=== PATIENT | male | born 1940 | race Caucasian/White ===

== ENCOUNTER 2021-03-13 00:01 | Emergency (ER) | payer MEDICARE, MEDICAID, SELFPAY ==
--- NOTE | ~2021-03-13 | CT_ITS ---
EXAMINATION: NONCONTRAST HEAD CT NONCONTRAST CERVICAL SPINE CT INDICATION INFORMATION: Head and neck injury COMPARISON: 12/06/2019 TECHNIQUE: Separate noncontrast CT examinations of the head and cervical spine were performed. Coronal head CT images and coronal and sagittal cervical spine images were created at the technologist workstation. DLP: 1129 mGy-cm DOSE LOWERING TECHNIQUES: This CT examination was performed using dose optimization techniques as appropriate, variously including the following: - Automated exposure control - Adjustment of mA and/or kV according to patient size (this includes techniques or standardized protocols for targeted exams were dose is matched to indication/reason for exam; i.e. extremities or head) - Use of iterative reconstruction technique FINDINGS: Head: There is no evidence of acute intracranial hemorrhage or territorial infarction. No abnormal mass-effect or midline shift is seen. [place] to white matter differentiation is well preserved. No extra-axial fluid collections are identified. The ventricles are normal in size. There is moderate periventricular white matter hypoattenuation consistent with chronic small vessel ischemic disease. Moderate volume loss is noted. Age-indeterminate nasal bone fracture. There is mild frontal scalp soft tissue swelling. The mastoid air cells and visualized portions of the paranasal sinuses are well-aerated. Cervical spine: There is degenerative change at the atlantodens articulation. There is minimal anterolisthesis of C5 on C6 which is chronic/degenerative in nature. Vertebral body heights are maintained. There is disc space narrowing of the mid to lower cervical spine with associated endplate osteophytes. Extensive multilevel facet arthropathy is redemonstrated. No evidence of acute fracture. No prevertebral soft tissue swelling. Visualized portions of the lung apices are unremarkable. The thyroid gland is unremarkable. CT/CT cervical spine wo con IMPRESSION: 1. Head: No acute intracranial findings. Age-indeterminate nasal bone fracture; clinical correlation recommended. 2. Cervical spine: No acute findings identified. Multilevel degenerative changes.
[2021-03-13 00:40] VITALS: BMI 20.4
[2021-03-13 00:55] VITALS: BP 170/98; PULSE 71; RESP 16; TEMP 36.6; O2SAT 96
--- NOTE | 2021-03-13 00:58 | ED.FALL ---
HPI - Fall General Chief Complaint: Fall Stated Complaint: fall Time Seen by Provider: 03/13/21 00:42 History of Present Illness HPI Narrative: Patient is an 81-year-old male with a long history of dementia. Patient was being helped to the bathroom. A baseline has an unsteady gait. There was an attended with him. Patient fell accidentally. Was sent to the [facility] for further evaluation. Patient did not pass out. He is not on blood thinners. He cannot give detailed history secondary to forgetfulness. Related Data Allergies Allergy/AdvReac Type Severity Reaction Status Date / Time No Known Allergies Allergy Unverified 06/19/20 17:10 [No Known Allergies*] Review of Systems Review of Systems: Unable to give detailed review of system secondary to patient's dementia. [facility] Social History Social History Alcohol intake: never Patient Tobacco Use Status: Tobacco use Unknown Use of substances other than those prescribed or required for medical reasons: No Advance Directives: No Advance Directives Information Provided: No Physical Exam Vital Signs: Vital Signs: Last Vital Signs Temp 97.8 F 03/13/21 04:50 Pulse 72 03/13/21 04:50 Resp 16 03/13/21 04:50 BP 154/84 H 03/13/21 04:50 Pulse Ox 99 03/13/21 04:50 Body Mass Index 20.4 Appearance: Alert. Oriented to self only. Eyes: Pupils equal, round and reactive to light. ENT: Pharynx normal. Patient has a positive hematoma to the frontal area. Neck: Normal inspection. Neck supple. No lymph nodes noted. No crepitus, C-spine was immobilized secondary to dementia and fall. CVS: Normal heart rate and rhythm. Pulses normal. Normal S1 and S2 Respiratory: No respiratory distress. Breath sounds normal. No Wheezing. No rales Abdomen: Soft and nontender. No rigidity. No distention. good BS x4 Skin: Skin warm and dry. Normal skin color. Normal skin turgor. Extremities: No lower extremity edema. Neurovascular intact to all extremities. No Lacerations. No Rash Neuro: Oriented X 1. Contracted moving all extremities MDM - Fall MDM Narrative Medical decision making narrative: CT scan of the head and C-spine were grossly negative. Electrolytes unremarkable. Patient was a witnessed fall will discharge patient home patient's hemoglobin was normal. Attempted to contact the power of broth setter. To no avail a message was left in the answer machine. Lab Data Result diagrams: 03/13/21 04:44 03/13/21 04:44 Labs: Lab Results 03/13/21 03/13/21 Range/Units 04:44 04:44 WBC 7.9 (4.8-10.8) X10*3/uL RBC 4.90 (4.60-5.80) X10*6/uL Hgb 14.4 (14.0-18.0) g/dl Hct 44.9 (42-52) % MCV 91.6 (80-98) fL MCH 29.4 (27.0-33.0) pg MCHC 32.1 (31.0-36.0) g/dl RDW 13.9 (11.0-16.0) % Plt Count 228 (160-400) X10*3/uL MPV 9.1 L (9.4-12.4) fL Immature Gran % (Auto) 0.3 (0.0-0.4) % Neut % (Auto) 54.9 (45-73) % Lymph % (Auto) 23.4 (20-40) % [place] % (Auto) 14.7 H (2-11) % Eos % (Auto) 6.2 H (0-4) % Baso % (Auto) 0.5 (0-2) % Lymph # (Auto) 1.9 (1.2-4.9) X10*3/uL [place] # (Auto) 1.2 (0.1-1.2) X10*3/uL Eos # (Auto) 0.5 H (0.0-0.4) X10*3/uL Baso # (Auto) 0.0 (0.0-0.2) X10*3/uL Abs Immat Gran (auto) 0.02 (0.00-0.03) X10*3/uL Absolute Neuts (auto) 4.3 (2.0-8.3) X10*3/uL Absolute Nucleated RBC 0.000 (0.0-0.012) X10*3/uL Nucleated RBC % (auto) 0.0 (0.0-0.2) /100WBC Sodium 141 (135-145) mmol/L Potassium 4.6 (3.3-5.1) mmol/L Chloride 108 (96-108) mmol/L Carbon Dioxide 24 (22-29) mmol/L Anion Gap 14 (12-20) BUN 16 (9-16) mg/dL Creatinine 0.84 (0.5-1.4) mg/dL Estim Creat Clear Calc 66.2 Estimated GFR > 60 Random Glucose 93 (60-115) mg/dL Calcium 9.0 (8.4-10.2) mg/dL Discharge Plan Discharge Clinical Impression: Fall Patient Disposition: Xfer LTC Instructions: Fall Prevention for Older Adults (ED), Head Injury (ED) Referrals: Norris Muñoz DO [Primary Care Provider] - 2 days
[2021-03-13 04:49] LABS: Basophils Percent Auto 0.5 % (0-2); Eosinophils Absolute Auto 0.5 X10*3/uL (0.0-0.4); Eosinophils Percent Auto 6.2 % (0-4); Hematocrit 44.9 % (42-52); Hemoglobin 14.4 g/dl (14.0-18.0); Imm Gran Abs Auto 0.02 X10*3/uL (0.00-0.03); Imm Gran Pct Auto 0.3 % (0.0-0.4); Lymphocytes Absolute Auto 1.9 X10*3/uL (1.2-4.9); Lymphocytes Percent Auto 23.4 % (20-40); MANUAL DIFF FLAG NO; Mean Corpuscular HGB Conc 32.1 g/dl (31.0-36.0); Mean Corpuscular Hemoglobin 29.4 pg (27.0-33.0); Mean Corpuscular Volume 91.6 fL (80-98); Mean Platelet Volume 9.1 fL (9.4-12.4); Monocytes Absolute Auto 1.2 X10*3/uL (0.1-1.2); Monocytes Percent Auto 14.7 % (2-11); Neutrophils Absolute Auto 4.3 X10*3/uL (2.0-8.3); Neutrophils Percent Auto 54.9 % (45-73); Platelet Count 228 X10*3/uL (160-400); Red Cell Distribution Width 13.9 % (11.0-16.0); White Blood Count 7.9 X10*3/uL (4.8-10.8)
[2021-03-13 04:50] VITALS: BP 154/84; PULSE 72; RESP 16; TEMP 36.6; O2SAT 99
[2021-03-13 05:15] LABS: Anion Gap 14 (12-20); Blood Urea Nitrogen 16 mg/dL (9-16); Carbon Dioxide 24 mmol/L (22-29); Chloride 108 mmol/L (96-108); Creatinine Clr Calc Pharmacy 66.2; Estimated Glomerular Filt Rate > 60; Glucose Random 93 mg/dL (60-115); Potassium 4.6 mmol/L (3.3-5.1); Sodium 141 mmol/L (135-145)
== END 2021-03-13 06:35 ==
PROVIDERS: Emergency Provider Emergency Medicine Emergency Medical Services; PCP Hospitalist
DX: F03.90 Unspecified dementia, unspecified severity, without behavioral disturbance, psychotic disturbance, mood disturbance, and anxiety (principal); Z91.81 History of falling
CPT/HCPCS: 36415; 70450; 72125; 80048; 85025; 99284; 99285

== ENCOUNTER 2021-12-30 06:30 | Emergency (ER) | payer MEDICARE, MEDICAID, SELFPAY ==
--- NOTE | ~2021-12-30 | XR_ITS ---
EXAMINATION: XR CHEST CLINICAL INFORMATION: Low oxygen. Low suspicious pulmonary edema. COMPARISON: 12/06/2019 TECHNIQUE: Frontal view of the chest was obtained. FINDINGS: Lung volumes are decreased from the prior study. Mild interstitial prominence. Calcified, tortuous aorta. Possible trace right pleural effusion. No left pleural effusion. No pneumothorax. Degenerative changes of the shoulders and spine but no acute osseous abnormality. XR/XR chest 1V IMPRESSION: Low lung volumes and mild interstitial prominence. Favor bronchovascular crowding in the setting of low lung volumes rather than mild interstitial edema, bronchitis, or interstitial pneumonitis. Possible trace right pleural effusion vs. atelectasis.
--- NOTE | 2021-12-30 06:40 | ECG_ITS ---
Test Reason : A FIB Blood Pressure : / mmHG Vent. Rate : 121 BPM Atrial Rate : 000 BPM P-R Int : 000 ms QRS Dur : 086 ms QT Int : 334 ms P-R-T Axes : 000 -11 -03 degrees QTc Int : 474 ms Atrial fibrillation with rapid ventricular response Nonspecific ST abnormality Abnormal ECG When compared with ECG of 06-DEC-2019 22:10, Atrial fibrillation has replaced Sinus rhythm ST now depressed in Anterior leads Referred By: Latonya Pressley Electronically Signed By:NATI GAN
--- NOTE | 2021-12-30 06:41 | ED_ITS ---
HPI - General Adult General Chief complaint: Altered Mental Status Stated complaint: LETHARGIC Time Seen by Provider: 12/30/21 06:31 Source: EMS Mode of arrival: EMS Limitations: altered mental status History of Present Illness HPI narrative: [facility]. According to the staff, patient was found unresponsive this morning. When EMS arrived to the facility, patient was already awake, at baseline, which is nonverbal, opens his eyes, cannot follow commands. According to the staff, patient is more lethargic than usual, at baseline patient is very combative, but today he is not fighting anyone. Patient unable to provide any history. Related Data Allergies Allergy/AdvReac Type Severity Reaction Status Date / Time No Known Allergies Allergy Unverified 06/19/20 17:10 [No Known Allergies*] Review of Systems Review of Systems: Yes Unobtainable due to mental condition [facility] Past Medical History Medical History (Updated 12/30/21 @ 11:12 by Latonya Pressley MD) COPD (chronic obstructive pulmonary disease) Dementia Malignant neoplasm of prostate Prostate cancer Schizophrenia Social History Social History Alcohol intake: never Patient Tobacco Use Status: Tobacco use Unknown Advance Directives: Yes Advance Directives Information Provided: No Advance Directives on File: No Physical Exam ED Vital Signs: Vital Signs - 24 hr 12/30/21 06:42 12/30/21 07:08 12/30/21 09:37 Temperature 98.5 F 97.0 F Pulse Rate 112 H 103 H 66 Respiratory Rate 13 12 15 Blood Pressure 132/81 130/80 103/56 L Pulse Oximetry 100 100 95 BMI result Body Mass Index 24.3 Const Other: Appearance: Awake, alert. No acute distress Eyes: Pinpoint pupils, Pupils equal, round and reactive to light. ENT: Pharynx normal. Neck: Normal inspection. Neck supple. No lymph nodes noted. No crepitus CVS: Irregularly irregular heart rate, not tachycardic. Pulses normal. Normal S1 and S2 Respiratory: No respiratory distress. Breath sounds normal. No Wheezing. No rales Abdomen: Soft and nontender. No rigidity. No distention. Skin: Skin warm and dry. Normal skin color. Normal skin turgor. Extremities: +1 pitting edema in lower extremities, chronic contractures of legs Neuro: Mumbles, slurred speech at baseline, unable to participating cranial nerve assessment Psych: calm, non combative Course Course Course Narrative: 07:50, lactic acid is 3.8, white blood cell count normal, no fever, normal blood pressure, chest x-ray does not show pneumonia. At this time, there is no clear source of infection, urinalysis pending. Sepsis is not suspected at this time I discussed the patient with doctors know who is the patient's physician at [facility]. Patient's lactic acid improved with IV hydration. Patient has new onset atrial fibrillation without RVR At this time, full anticoagulation will not be started but patient will be given aspirin. Patient also has subclinical hypothyroidism. Patient is ready for discharge Medical Decision Making Lab Data Result diagrams: 12/30/21 06:56 12/30/21 06:56 Labs: Lab Results 12/30/21 12/30/21 12/30/21 Range/Units 06:56 06:56 06:56 WBC 7.1 (4.8-10.8) X10*3/uL RBC 4.36 L (4.60-5.80) X10*6/uL Hgb 12.9 L (14.0-18.0) g/dl Hct 39.6 L (42.0-52.0) % MCV 90.8 (80.0-98.0) fL MCH 29.6 (27.0-33.0) pg MCHC 32.6 (31.0-36.0) g/dl RDW 15.2 (11.0-16.0) % Plt Count 215 (160-400) X10*3/uL MPV 11.0 (9.4-12.4) fL Immature Gran % (Auto) 0.3 (0.0-0.4) % Neut % (Auto) 67.1 (45-73) % Lymph % (Auto) 15.5 L (20-40) % [place] % (Auto) 10.4 (2-11) % Eos % (Auto) 6.3 H (0-4) % Baso % (Auto) 0.4 (0-2) % Lymph # (Auto) 1.1 L (1.2-4.9) X10*3/uL [place] # (Auto) 0.7 (0.1-1.2) X10*3/uL Eos # (Auto) 0.5 H (0.0-0.4) X10*3/uL Baso # (Auto) 0.0 (0.0-0.2) X10*3/uL Abs Immat Gran (auto) 0.02 (0.00-0.03) X10*3/uL Absolute Neuts (auto) 4.8 (2.0-8.3) x10*3/uL Absolute Nucleated RBC 0.000 (0.0-0.012) X10*3/uL Nucleated RBC % (auto) 0.0 (0.0-0.2) /100WBC PT 12.0 (9.9-13.0) SEC INR 1.1 (0.9-1.1) Sodium 137 (135-145) mmol/L Potassium 5.3 H (3.3-5.1) mmol/L Chloride 105 (96-108) mmol/L Carbon Dioxide 20 L (22-29) mmol/L Anion Gap 17 (12-20) BUN 20 H (9-16) mg/dL Creatinine 0.91 (0.5-1.4) mg/dL Estim Creat Clear Calc 63.5 Estimated GFR > 60 Random Glucose 83 (60-115) mg/dL Lactic Acid (0.5-2.0) mmol/L Lactic Acid F/U @ 2Hr (0.5-2.0) mmol/L Calcium 9.2 (8.4-10.2) mg/dL Magnesium 2.0 (1.6-2.6) mg/dL Total Bilirubin 0.2 (0.0-1.0) mg/dL Direct Bilirubin < 0.2 (0.0-0.5) mg/dL AST 27 (5-37) U/L ALT 21 (0-40) U/L Alkaline Phosphatase 144 H (39-117) U/L Ammonia (13-55) umol/L Troponin I High Sens (<3.5-35.0) ng/L B-Natriuretic Peptide (<100) pg/mL Total Protein 6.9 (6.5-8.0) g/dL Albumin 3.6 (3.5-5.0) g/dL TSH (0.32-4.0) uIU/mL Free T4 (0.71-1.85) ng/dL Urine Color Urine Appearance Urine pH (5.0-8.0) Ur Specific [place] (1.005-1.025) Urine Protein (NEG-TRACE) MG/DL Urine Glucose (UA) (NEG) MG/DL Urine Ketones (NEG) MG/DL Urine Blood (NEG) Urine Nitrite (NEG) Ur Leukocyte Esterase (NEG) COVID-19 (COOPER) (Negative) COVID-19 Clin Com 12/30/21 12/30/21 12/30/21 Range/Units 06:56 06:56 06:56 WBC (4.8-10.8) X10*3/uL RBC (4.60-5.80) X10*6/uL Hgb (14.0-18.0) g/dl Hct (42.0-52.0) % MCV (80.0-98.0) fL MCH (27.0-33.0) pg MCHC (31.0-36.0) g/dl RDW (11.0-16.0) % Plt Count (160-400) X10*3/uL MPV (9.4-12.4) fL Immature Gran % (Auto) (0.0-0.4) % Neut % (Auto) (45-73) % Lymph % (Auto) (20-40) % [place] % (Auto) (2-11) % Eos % (Auto) (0-4) % Baso % (Auto) (0-2) % Lymph # (Auto) (1.2-4.9) X10*3/uL [place] # (Auto) (0.1-1.2) X10*3/uL Eos # (Auto) (0.0-0.4) X10*3/uL Baso # (Auto) (0.0-0.2) X10*3/uL Abs Immat Gran (auto) (0.00-0.03) X10*3/uL Absolute Neuts (auto) (2.0-8.3) x10*3/uL Absolute Nucleated RBC (0.0-0.012) X10*3/uL Nucleated RBC % (auto) (0.0-0.2) /100WBC PT (9.9-13.0) SEC INR (0.9-1.1) Sodium (135-145) mmol/L Potassium (3.3-5.1) mmol/L Chloride (96-108) mmol/L Carbon Dioxide (22-29) mmol/L Anion Gap (12-20) BUN (9-16) mg/dL Creatinine (0.5-1.4) mg/dL Estim Creat Clear Calc Estimated GFR Random Glucose (60-115) mg/dL Lactic Acid 3.4 H* (0.5-2.0) mmol/L Lactic Acid F/U @ 2Hr (0.5-2.0) mmol/L Calcium (8.4-10.2) mg/dL Magnesium (1.6-2.6) mg/dL Total Bilirubin (0.0-1.0) mg/dL Direct Bilirubin (0.0-0.5) mg/dL AST (5-37) U/L ALT (0-40) U/L Alkaline Phosphatase (39-117) U/L Ammonia (13-55) umol/L Troponin I High Sens < 3.5 (<3.5-35.0) ng/L B-Natriuretic Peptide 54 (<100) pg/mL Total Protein (6.5-8.0) g/dL Albumin (3.5-5.0) g/dL TSH 8.96 H (0.32-4.0) uIU/mL Free T4 1.12 (0.71-1.85) ng/dL Urine Color Urine Appearance Urine pH (5.0-8.0) Ur Specific [place] (1.005-1.025) Urine Protein (NEG-TRACE) MG/DL Urine Glucose (UA) (NEG) MG/DL Urine Ketones (NEG) MG/DL Urine Blood (NEG) Urine Nitrite (NEG) Ur Leukocyte Esterase (NEG) COVID-19 (COOPER) (Negative) COVID-19 Clin Com 12/30/21 12/30/21 12/30/21 Range/Units 06:56 06:56 07:59 WBC (4.8-10.8) X10*3/uL RBC (4.60-5.80) X10*6/uL Hgb (14.0-18.0) g/dl Hct (42.0-52.0) % MCV (80.0-98.0) fL MCH (27.0-33.0) pg MCHC (31.0-36.0) g/dl RDW (11.0-16.0) % Plt Count (160-400) X10*3/uL MPV (9.4-12.4) fL Immature Gran % (Auto) (0.0-0.4) % Neut % (Auto) (45-73) % Lymph % (Auto) (20-40) % [place] % (Auto) (2-11) % Eos % (Auto) (0-4) % Baso % (Auto) (0-2) % Lymph # (Auto) (1.2-4.9) X10*3/uL [place] # (Auto) (0.1-1.2) X10*3/uL Eos # (Auto) (0.0-0.4) X10*3/uL Baso # (Auto) (0.0-0.2) X10*3/uL Abs Immat Gran (auto) (0.00-0.03) X10*3/uL Absolute Neuts (auto) (2.0-8.3) x10*3/uL Absolute Nucleated RBC (0.0-0.012) X10*3/uL Nucleated RBC % (auto) (0.0-0.2) /100WBC PT (9.9-13.0) SEC INR (0.9-1.1) Sodium (135-145) mmol/L Potassium (3.3-5.1) mmol/L Chloride (96-108) mmol/L Carbon Dioxide (22-29) mmol/L Anion Gap (12-20) BUN (9-16) mg/dL Creatinine (0.5-1.4) mg/dL Estim Creat Clear Calc Estimated GFR Random Glucose (60-115) mg/dL Lactic Acid (0.5-2.0) mmol/L Lactic Acid F/U @ 2Hr (0.5-2.0) mmol/L Calcium (8.4-10.2) mg/dL Magnesium (1.6-2.6) mg/dL Total Bilirubin (0.0-1.0) mg/dL Direct Bilirubin (0.0-0.5) mg/dL AST (5-37) U/L ALT (0-40) U/L Alkaline Phosphatase (39-117) U/L Ammonia 29 (13-55) umol/L Troponin I High Sens (<3.5-35.0) ng/L B-Natriuretic Peptide (<100) pg/mL Total Protein (6.5-8.0) g/dL Albumin (3.5-5.0) g/dL TSH (0.32-4.0) uIU/mL Free T4 (0.71-1.85) ng/dL Urine Color YELLOW Urine Appearance CLEAR Urine pH 5.5 (5.0-8.0) Ur Specific [place] 1.020 (1.005-1.025) Urine Protein NEG (NEG-TRACE) MG/DL Urine Glucose (UA) NEG (NEG) MG/DL Urine Ketones NEG (NEG) MG/DL Urine Blood NEG (NEG) Urine Nitrite NEG (NEG) Ur Leukocyte Esterase NEG (NEG) COVID-19 (COOPER) Negative (Negative) COVID-19 Clin Com See Note 12/30/21 Range/Units 10:20 WBC (4.8-10.8) X10*3/uL RBC (4.60-5.80) X10*6/uL Hgb (14.0-18.0) g/dl Hct (42.0-52.0) % MCV (80.0-98.0) fL MCH (27.0-33.0) pg MCHC (31.0-36.0) g/dl RDW (11.0-16.0) % Plt Count (160-400) X10*3/uL MPV (9.4-12.4) fL Immature Gran % (Auto) (0.0-0.4) % Neut % (Auto) (45-73) % Lymph % (Auto) (20-40) % [place] % (Auto) (2-11) % Eos % (Auto) (0-4) % Baso % (Auto) (0-2) % Lymph # (Auto) (1.2-4.9) X10*3/uL [place] # (Auto) (0.1-1.2) X10*3/uL Eos # (Auto) (0.0-0.4) X10*3/uL Baso # (Auto) (0.0-0.2) X10*3/uL Abs Immat Gran (auto) (0.00-0.03) X10*3/uL Absolute Neuts (auto) (2.0-8.3) x10*3/uL Absolute Nucleated RBC (0.0-0.012) X10*3/uL Nucleated RBC % (auto) (0.0-0.2) /100WBC PT (9.9-13.0) SEC INR (0.9-1.1) Sodium (135-145) mmol/L Potassium (3.3-5.1) mmol/L Chloride (96-108) mmol/L Carbon Dioxide (22-29) mmol/L Anion Gap (12-20) BUN (9-16) mg/dL Creatinine (0.5-1.4) mg/dL Estim Creat Clear Calc Estimated GFR Random Glucose (60-115) mg/dL Lactic Acid (0.5-2.0) mmol/L Lactic Acid F/U @ 2Hr 1.6 (0.5-2.0) mmol/L Calcium (8.4-10.2) mg/dL Magnesium (1.6-2.6) mg/dL Total Bilirubin (0.0-1.0) mg/dL Direct Bilirubin (0.0-0.5) mg/dL AST (5-37) U/L ALT (0-40) U/L Alkaline Phosphatase (39-117) U/L Ammonia (13-55) umol/L Troponin I High Sens (<3.5-35.0) ng/L B-Natriuretic Peptide (<100) pg/mL Total Protein (6.5-8.0) g/dL Albumin (3.5-5.0) g/dL TSH (0.32-4.0) uIU/mL Free T4 (0.71-1.85) ng/dL Urine Color Urine Appearance Urine pH (5.0-8.0) Ur Specific [place] (1.005-1.025) Urine Protein (NEG-TRACE) MG/DL Urine Glucose (UA) (NEG) MG/DL Urine Ketones (NEG) MG/DL Urine Blood (NEG) Urine Nitrite (NEG) Ur Leukocyte Esterase (NEG) COVID-19 ([facility]) (Negative) COVID-19 Clin Com Discharge Plan Discharge Clinical Impression: Dehydration, Atrial fibrillation, new onset, Subclinical hypothyroidism Patient Disposition: Home, Self-Care Instructions: Dehydration (ED), A-fib (Atrial Fibrillation) (ED) Additional Instructions: Please start full-dose aspirin, 325 mg for atrial fibrillation. Please stay well hydrated. Please follow-up with your primary care physician tomorrow. If you have any worsening or new symptoms, please return to the emergency room or call 911
[2021-12-30 06:42] VITALS: BP 132/81; PULSE 112; RESP 13; TEMP 36.9; O2SAT 100; BMI 24.3
[2021-12-30 07:08] VITALS: BP 130/80; PULSE 103; RESP 12; O2SAT 100
[2021-12-30 07:20] LABS: MANUAL DIFF FLAG NO
[2021-12-30 07:27] LABS: Ammonia 29 umol/L (13-55)
[2021-12-30 07:33] LABS: Basophils Percent Auto 0.4 % (0-2); Eosinophils Absolute Auto 0.5 X10*3/uL (0.0-0.4); Eosinophils Percent Auto 6.3 % (0-4); Hematocrit 39.6 % (42.0-52.0); Hemoglobin 12.9 g/dl (14.0-18.0); Imm Gran Abs Auto 0.02 X10*3/uL (0.00-0.03); Imm Gran Pct Auto 0.3 % (0.0-0.4); Lymphocytes Absolute Auto 1.1 X10*3/uL (1.2-4.9); Lymphocytes Percent Auto 15.5 % (20-40); Mean Corpuscular HGB Conc 32.6 g/dl (31.0-36.0); Mean Corpuscular Hemoglobin 29.6 pg (27.0-33.0); Mean Corpuscular Volume 90.8 fL (80.0-98.0); Monocytes Absolute Auto 0.7 X10*3/uL (0.1-1.2); Monocytes Percent Auto 10.4 % (2-11); Neutrophils Absolute Auto 4.8 x10*3/uL (2.0-8.3); Neutrophils Percent Auto 67.1 % (45-73); Platelet Count 215 X10*3/uL (160-400); Red Blood Count 4.36 X10*6/uL (4.60-5.80); Red Cell Distribution Width 15.2 % (11.0-16.0); White Blood Count 7.1 X10*3/uL (4.8-10.8)
[2021-12-30 07:36] LABS: Lactic Acid 3.4 mmol/L (0.5-2.0)
[2021-12-30 07:40] LABS: COVID-19 Test Negative (Negative); IDNOW Serial# 16C4AD1C
[2021-12-30 07:43] LABS: INTERNATIONAL NORM RATIO 1.1 (0.9-1.1)
[2021-12-30 07:44] LABS: Alanine Aminotransferase 21 U/L (0-40); Albumin Level 3.6 g/dL (3.5-5.0); Alkaline Phosphatase 144 U/L (39-117); Anion Gap 17 (12-20); Aspartate Amino Transferase 27 U/L (5-37); Bilirubin Direct < 0.2 mg/dL (0.0-0.5); Bilirubin Total 0.2 mg/dL (0.0-1.0); Blood Urea Nitrogen 20 mg/dL (9-16); Calcium 9.2 mg/dL (8.4-10.2); Carbon Dioxide 20 mmol/L (22-29); Chloride 105 mmol/L (96-108); Creatinine Clr Calc Pharmacy 63.5; Estimated Glomerular Filt Rate > 60; Glucose Random 83 mg/dL (60-115); Potassium 5.3 mmol/L (3.3-5.1); Sodium 137 mmol/L (135-145); Total Protein 6.9 g/dL (6.5-8.0)
[2021-12-30 07:48] LABS: B Type Natriuretic Peptide 54 pg/mL (<100); Troponin-I High Sensitivity < 3.5 ng/L (<3.5-35.0)
[2021-12-30 08:03] LABS: TSH reflex Free T4 8.96 uIU/mL (0.32-4.0)
[2021-12-30 08:04] LABS: Appearance Urine CLEAR; Color Urine YELLOW; Glucose Urine UA NEG (NEG); Leukocyte Esterase Urine NEG (NEG); Nitrite Urine NEG (NEG); PH 5.5 (5.0-8.0); Urine Blood NEG (NEG); Urine Ketones NEG (NEG); Urine Protein NEG (NEG-TRACE)
[2021-12-30 09:16] LABS: Reflex Lactate? Lactic Acid Added
[2021-12-30 09:18] LABS: Free T4 (Free Thyroxine) 1.12 ng/dL (0.71-1.85)
[2021-12-30] MEDS: 0.9 % Sodium Chloride 1,000 ML 999 ML IVCONT (09:31)
[2021-12-30 09:37] VITALS: BP 103/56; PULSE 66; RESP 15; TEMP 36.1; O2SAT 95
[2021-12-30 10:43] LABS: ~Lactic Acid-LAB USE ONLY 1.6 mmol/L (0.5-2.0)
== END 2021-12-30 12:01 | disposition home or self-care (01) ==
PROVIDERS: Emergency Provider Emergency Medicine; PCP Hospitalist
DX: R41.82 Altered mental status, unspecified (principal); E86.0 Dehydration; I48.91 Unspecified atrial fibrillation; E03.8 Other specified hypothyroidism; R53.83 Other fatigue; R60.0 Localized edema; Z20.822 Contact with and (suspected) exposure to COVID-19; F03.90 Unspecified dementia, unspecified severity, without behavioral disturbance, psychotic disturbance, mood disturbance, and anxiety; J44.9 Chronic obstructive pulmonary disease, unspecified; Z85.46 Personal history of malignant neoplasm of prostate
CPT/HCPCS: 36415; 51701; 71045; 80048; 80076; 81003; 82140; 83605; 83735; 83880; 84439; 84443; 84484; 85025; 85610; 87040; 87635; 93005; 96360; 99284; 99285

== ENCOUNTER 2021-12-30 14:05 | Inpatient (IN) | payer MEDICARE, MEDICAID, SELFPAY ==
--- NOTE | ~2021-12-30 | CT_ITS ---
EXAMINATION: CT HEAD WITHOUT CONTRAST CLINICAL INFORMATION: Fell. COMPARISON: CT head dated from 12/30/2021. TECHNIQUE: Contiguous axial imaging was performed from the skull base to vertex without intravenous administration of contrast. This CT examination was performed using dose optimization techniques as appropriate, variously including the following: *Automated exposure control *Adjustment of mA and/or kV according to patient size (this includes techniques or standardized protocols for targeted exams where dose is matched to indication/reason for exam; i.e. extremities or head) *Use of iterative reconstruction technique DLP: 837 mGy-cm FINDINGS: There is no evidence of acute intracranial hemorrhage or edematous territorial infarction. Scattered hypoattenuation in the periventricular and deep white matter are consistent with moderate microangiopathy. Livingston-white matter differentiation is preserved. Proportional prominence of the ventricles and sulcal spaces. No evidence for obstructive hydrocephalus. No abnormal mass effect or midline shift. No extra-axial fluid collections. No acute soft tissue or osseous abnormalities. Mild mucosal thickening of the paranasal sinuses. Leftward deviation of the nasal septum. Bilateral lens extraction. CT/CT head/brain wo con IMPRESSION: No evidence of acute intracranial hemorrhage or edematous territorial infarction.
--- NOTE | ~2021-12-30 | XR_ITS ---
EXAMINATION: XR CHEST CLINICAL INFORMATION: Hypothermia. COMPARISON: Chest radiograph dated from 12/30/2021. TECHNIQUE: AP view of the chest was obtained. FINDINGS: Stable prominence of the cardiomediastinal silhouette. Atherosclerotic disease of the thoracic aorta. Increased haziness in the retrocardiac region and left lower lobe silhouetting the left hemidiaphragm. Stable interstitial thickening elsewhere. Possible trace amount of left-sided pleural fluid. No pneumothorax. Redemonstration of right-sided seventh rib fracture with signs of healing. XR/XR chest 1V IMPRESSION: Worsening pulmonary aeration in the retrocardiac region/left lower lobe which could potentially be related with patient's rotation. Other differentials include worsening atelectasis, aspiration or developing pneumonia in the appropriate clinical context. Query a trace amount of left-sided pleural fluid.
--- NOTE | ~2021-12-30 | CT_ITS ---
EXAMINATION: CT CHEST WITHOUT CONTRAST CLINICAL INFORMATION: Pneumonia COMPARISON: Previous chest x-ray most recent from yesterday TECHNIQUE: Multidetector volumetric CT imaging of the chest was done. Axial MIP volume rendering provided. Sagittal and coronal reformatted images were obtained. This CT examination was performed using dose optimization techniques as appropriate, variously including the following: *Automated exposure control *Adjustment of mA and/or kV according to patient size (this includes techniques or standardized protocols for targeted exams where dose is matched to indication/reason for exam; i.e. extremities or head) *Use of iterative reconstruction technique DLP: 216 mGy-cm FINDINGS: LUNGS: There is increased attenuation seen in the dependent right lower lobe. This is increased compared to the left side and is questionable for small infiltrate as well as dependent atelectasis. The lungs are otherwise clear. No endobronchial or endotracheal lesion MEDIASTINUM: The heart does not appear enlarged. There is coronary artery calcification. There is severe atherosclerotic disease. The thoracic aorta is normal in caliber. There is no pericardial effusion. There are no enlarged hilar or mediastinal lymph nodes. PLEURA: There is no pleural effusion. No pleural mass or thickening. AXILLA: No lymphadenopathy. UPPER ABDOMEN: There may be a small calcification in the right lobe of the liver. There is a small low-attenuation right adrenal nodule measuring less than 1 cm. There is a small low-attenuation lesion exophytic to the upper pole of the right kidney probably representing a cyst. The stomach is very full. There is stool throughout the colon questionable for constipation. OSSEOUS STRUCTURES: There are degenerative changes of the spine. CT/CT chest wo con IMPRESSION: Question small right lower lobe pneumonia. Atherosclerotic disease. Very full stomach question constipation. Fleischner guidelines were followed.
--- NOTE | ~2021-12-30 | CT_ITS ---
EXAMINATION: CT HEAD WITHOUT CONTRAST CLINICAL INFORMATION: New onset seizures. COMPARISON: Head CT scan dated 03/13/2021. TECHNIQUE: Contiguous axial imaging was performed from the skull base to vertex without intravenous administration of contrast. Coronal and sagittal reformatted images were obtained. This CT examination was performed using dose optimization techniques as appropriate, variously including the following: *Automated exposure control *Adjustment of mA and/or kV according to patient size (this includes techniques or standardized protocols for targeted exams where dose is matched to indication/reason for exam; i.e. extremities or head) *Use of iterative reconstruction technique DLP: 724 mGy-cm FINDINGS: There is mild widening of the cortical sulci and associated ventriculomegaly. Mild periventricular microvascular changes are seen. The lateral ventricles are symmetrical. The third and fourth ventricles are in their normal midline position. The basilar and prepontine cisterns are unremarkable. There is no acute intra or extracerebral abnormality. There is no mass effect or midline shift. Sections through the bony calvarium are unremarkable. The orbits are intact. The paranasal sinuses are clear. The mastoid air cells are clear. Moderate anterior nasal septal deviation, apex the left is again seen without significant change or acute abnormality. CT/CT head/brain wo con IMPRESSION: No acute intracranial pathology.
[2021-12-30 14:09] VITALS: BP 121/56; PULSE 97; O2SAT 96
[2021-12-30 14:11] VITALS: BMI 21.2
[2021-12-30 14:17] VITALS: BP 111/68; PULSE 99; RESP 12; O2SAT 96
--- NOTE | 2021-12-30 14:20 | ED.SEIZURE ---
HPI - Seizure General Chief Complaint: Seizure Stated Complaint: INC LETHARGY W/AMS ? SZ PER SNF Time Seen by Provider: 12/30/21 14:16 Source: EMS Mode of arrival: EMS Limitations: no limitations History of Present Illness HPI Narrative: Patient was discharged from the ED earlier today. When he arrived at [facility], patient had a tonic clonic seizure. I spoke with Dr. Muñoz, patient has no history seizures. Patient is awake, alert, unable to give any history, less active than usual. Related Data Allergies Allergy/AdvReac Type Severity Reaction Status Date / Time No Known Allergies Allergy Unverified 06/19/20 17:10 [No Known Allergies*] Review of Systems Review of Systems: Yes Unobtainable due to mental condition PMFSH Past Medical History Medical History COPD (chronic obstructive pulmonary disease) Dementia Malignant neoplasm of prostate Prostate cancer Schizophrenia Social History Social History Alcohol intake: never Patient Tobacco Use Status: Tobacco use Unknown Advance Directives: Yes Advance Directives Information Provided: No Advance Directives on File: No Physical Exam Vital Signs: Vital Signs: Last Vital Signs Pulse 68 12/30/21 15:27 Resp 14 12/30/21 15:27 BP 133/83 12/30/21 15:27 Pulse Ox 96 12/30/21 14:17 BMI result Body Mass Index 21.2 Const: Other: Appearance: Alert. Does not seem in any acute distress Eyes: Pupils equal, round and reactive to light. ENT: Pharynx normal. Neck: Normal inspection. Neck supple. No lymph nodes noted. No crepitus CVS: Normal heart rate and rhythm. Pulses normal. Normal S1 and S2 Respiratory: No respiratory distress. Breath sounds normal. No Wheezing. No rales Abdomen: Soft and nontender. No rigidity. No distention. Skin: Skin warm and dry. Normal skin color. Normal skin turgor. Extremities: Bilateral lower extremity contractures Neuro: Unable to assess cranial nerve assessment Psych: calm Course Course Course Narrative: Head CT is pending. It is possible that earlier today before his 1st arrival to the ED, patient had a seizure which was unwitnessed. Prior to this arrival, the seizure was witnessed, lasted approximately 5 minutes. Patient is receiving 1500 mg of IV Keppra loading dose. Patient has not had any seizures. Head CT does not show any acute pathology. Patient to be admitted. MDM - Seizure Imaging Data CT scan - head: Radiologist's impression: FINDINGS: There is mild widening of the cortical sulci and associated ventriculomegaly. Mild periventricular microvascular changes are seen. The lateral ventricles are symmetrical. The third and fourth ventricles are in their normal midline position. The basilar and prepontine cisterns are unremarkable. There is no acute intra or extracerebral abnormality. There is no mass effect or midline shift. Sections through the bony calvarium are unremarkable. The orbits are intact. The paranasal sinuses are clear. The mastoid air cells are clear. Moderate anterior nasal septal deviation, apex the left is again seen without significant change or acute abnormality. CT/CT head/brain wo con IMPRESSION: No acute intracranial pathology. Discharge Plan Discharge Clinical Impression: New onset seizure Patient Disposition: Admitted As Inpatient
[2021-12-30 15:27] VITALS: BP 133/83; PULSE 68; RESP 14
--- NOTE | 2021-12-30 15:30 | PC.NURSE ---
assumed care of pt at 1500 - Keppra from 1416 needs to be hung, will administer that medication per MAR
[2021-12-30] MEDS: levETIRAcetam in NaCl (iso-os) 1,500 MG/100 ML PIGGYBACK 400 MG IV (15:38)
--- NOTE | 2021-12-30 17:40 | P.HPHOSP_ITS ---
History of Present Illness Date of Service: 12/30/21 Chief Complaint: seizure 81yo M long-term resident of [facility] with TBI, schizophrenia, dementia, and hx prostate CA sent in today from [facility] after being found unresponsive this morning. Upon EMS arrival, he was awake and alert and at his baseline mental status. In the ED, he was found to have lactic acidosis and new-onset AF with controlled ventricular rate. After discussion with his primary care doctor at [facility], he was sent back with plan for aspirin rather than full-dose anticoagulation. However, upon arrival there, he had a witnessed 5-minute tonic-clonic seizure and was postictal afterwards. He has no history of prior seizures. He was brought back to the ED, where he was given 1.5g of IV levetiracetam. He is awake and alert and answers questions but not coherently. Unable to obtain ROS due to his mental status, but there is no reported fever. Review of Systems Review of Systems: Yes Unobtainable due to mental status PMFSH Medical History COPD (chronic obstructive pulmonary disease) Dementia Malignant neoplasm of prostate Prostate cancer Schizophrenia Family History (Updated 12/30/21 @ 17:47 by Jackie Reynaga MD) Other Family history unknown Pertinent family history: due to pt's mental status Social History Alcohol intake: never Patient Tobacco Use Status: Tobacco use Unknown Advance Directives: Yes Advance Directives Information Provided: No Advance Directives on File: No Meds Allergies Allergy/AdvReac Type Severity Reaction Status Date / Time No Known Allergies Allergy Unverified 06/19/20 17:10 [No Known Allergies*] Active Medications: Current Medications Acetaminophen (Acetaminophen 325 Mg Tablet) 650 mg PO Q6H PRN PRN Reason: Pain, Mild (Pain Scale 1-3) Enoxaparin Sodium (Enoxaparin Sodium 40 Mg/0.4 Ml Syringe) 40 mg SUBCUT Q24H TERESE Levetiracetam (Keppra) 500 mg in 100 mls @ 400 mls/hr IV Q12H TERESE Ondansetron HCl (Ondansetron Hcl 4 Mg/2 Ml Vial) 4 mg IVPUSH Q8H PRN PRN Reason: Nausea and Vomiting Sodium Chloride (0.9 % Sodium Chloride Flush 3 Ml Syringe) 3 ml IVFLUSH QSHIFT [facility] Home Medications Medication Instructions Recorded Confirmed Last Taken Type acetaminophen 325 mg tablet 650 mg PO Q4H PRN 12/30/21 12/30/21 Unknown History aluminum-mag hydroxide-simethicone 30 ml PO Q4H PRN 12/30/21 12/30/21 Unknown History 200 mg-200 mg-20 mg/5 mL oral susp atorvastatin 20 mg tablet 20 mg PO DAILY 12/30/21 12/30/21 Unknown History bisacodyl 10 mg rectal suppository 10 mg CO DAILY PRN 12/30/21 12/30/21 Unknown History bisacodyl 5 mg tablet 5 mg PO Q2D@2100 12/30/21 12/30/21 Unknown History chlorpromazine 25 mg tablet 25 mg PO BID 12/30/21 12/30/21 Unknown History chlorpromazine 50 mg tablet 50 mg PO BID 12/30/21 12/30/21 Unknown History esomeprazole magnesium 40 mg 40 mg PO DAILY 12/30/21 12/30/21 Unknown History capsule,delayed release (Nexium) gabapentin 100 mg capsule 100 mg PO BID 12/30/21 12/30/21 Unknown History haloperidol decanoate 50 mg/mL 10 mg IM Q14D 12/30/21 12/30/21 Unknown History intramuscular solution (Haldol Decanoate) ibuprofen 600 mg tablet 600 mg PO Q6H PRN 12/30/21 12/30/21 Unknown History lactulose 10 gram/15 mL oral 20 g PO BID 12/30/21 12/30/21 Unknown History solution lanolin alcohols-mineral 1 appl TOPICAL DAILY PRN 12/30/21 12/30/21 Unknown History oil-w.petrolatum-ceresin topical cream (Minerin Creme) levothyroxine 50 mcg tablet 50 mcg PO DAILY@0600 12/30/21 12/30/21 Unknown History loperamide 2 mg capsule 2 mg PO Q8H PRN 12/30/21 12/30/21 Unknown History metoclopramide HCl 5 mg tablet 5 mg PO BID 12/30/21 12/30/21 Unknown History multivitamin 1 tab PO DAILY 12/30/21 12/30/21 Unknown History ondansetron 4 mg disintegrating 4 mg PO Q4H PRN 12/30/21 12/30/21 Unknown History tablet propranolol 20 mg tablet 20 mg PO TID 12/30/21 12/30/21 Unknown History sennosides 8.6 mg tablet (senna) 8.6 mg PO DAILY PRN 12/30/21 12/30/21 Unknown History sennosides 8.6 mg-docusate sodium 2 tab-cap PO BID 12/30/21 12/30/21 Unknown History 50 mg tablet (Senna Plus) tamsulosin 0.4 mg capsule 0.4 mg PO DAILY 12/30/21 12/30/21 Unknown History tramadol 50 mg tablet 50 mg PO BID 12/30/21 12/30/21 Unknown History tramadol 50 mg tablet 50 mg PO Q8H PRN 12/30/21 12/30/21 Unknown History Physical Exam Vital Signs and Narrative: Vital Signs: Last Vital Signs Pulse 68 12/30/21 15:27 Resp 14 12/30/21 15:27 BP 133/83 12/30/21 15:27 Pulse Ox 96 12/30/21 14:17 BMI result Body Mass Index 21.2 Gen: in no acute distress HEENT: sclera anicteric, moist mucus membranes, edentulous Neck: supple Lungs: clear to auscultation bilaterally Heart: irregular, no murmurs Abd: soft, non-tender, non-distended Ext: no edema Skin: warm/well-perfused Neuro: alert, unable to assess orientation, follows commands and moves all 4 extremities Psych: impaired insight Results Labs Labs: WBC 7.1, Hb 12.9, Na 137, K 5.3, HCO3 20, SCr 0.91, LA 3.4->1.6, TSH 8.96, fT4 1.12 CT head IMPRESSION: No acute intracranial pathology. CXR Low lung volumes and mild interstitial prominence. Favor bronchovascular crowding in the setting of low lung volumes rather than mild interstitial edema, bronchitis, or interstitial pneumonitis. ? Possible trace right pleural effusion vs. atelectasis. Imaging Radiologist's Impressions: Impressions Head CT 12/30/21 15:04 IMPRESSION: No acute intracranial pathology. Assessment and Plan (1) Atrial fibrillation, new onset: Status: Acute (2) New onset seizure: Status: Acute Plan 81yo M LTC resident with TBI, schizophrenia, dementia, and hx prostate CA sent in after being found unresponsive, found to have new-onset AF [rate-controlled] and then had new-onset generalized tonic-clonic seizure # new-onset seizure - admit to [facility], seizure precautions, IV levetiracetam, Neuro consult, EEG # new-onset AF - rate controlled. per discussion with PCP, only ASA for anticoagulation. TTE, cardiology consult # subclinical hypothyroidism vs. sick euthyroid - recheck TFTs in 6 mo # HLD - statin # schizophrenia - continue haloperidol decanoate, chlorpromazine # VTE ppx - LMWH # code - FULL I anticipate that the patient will stay at least 2 midnights in hospital due to the above reasons. It is not reasonable or safe to care for them in a less acute setting. Quality Stroke Does the patient have a stroke diagnosis?: No VTE Prior VTE?: No VTE Risk Level:: Medical - moderate - high VTE Device Contraindication: N/A - Device Ordered VTE Drug Contraindication: N/A - Med Ordered
--- NOTE | 2021-12-30 18:37 | PHA.MEDREC ---
med rec complete, no issues , used list from sn[facility] Pharmacy Consult ? Medication Reconciliation Pharmacy has completed the medication reconciliation.
--- NOTE | 2021-12-30 19:36 | PC.NURSE ---
Pt resting quietly in bed at this time, no seizure activity noted at this time. Resp reg and even, NAD.
[2021-12-30] MEDS: Enoxaparin Sodium 40 MG/0.4 ML SYRINGE SUBCUT (21:44)
[2021-12-30] MEDS: Propranolol HCL 20 MG TABLET PO (21:45)
[2021-12-30] MEDS: Sennosides/Docusate Sodium TABLET 2 TAB PO (21:46)
[2021-12-30] MEDS: bisacodyL 5 MG TABLET.DR PO (21:46)
[2021-12-30] MEDS: chlorproMAZINE HCl 25 MG TABLET 50 MG PO (21:46)
[2021-12-30] MEDS: Gabapentin 100 MG CAPSULE PO (21:46)
[2021-12-30] MEDS: chlorproMAZINE HCl 25 MG TABLET PO (21:46)
[2021-12-31] VITALS (10 sets, daily range): BP systolic 106–149; BP diastolic 55–73; PULSE 62–85; RESP 12–19; TEMP 32.3–36; O2SAT 94–100
[2021-12-31] MEDS: OLANZapine 10 MG VIAL 5 MG IM (00:46)
--- NOTE | 2021-12-31 01:01 | PC.NURSE ---
Pt increasingly aggressive and agitated. Striking out at t/w and other staff with hands and feet, pt caught attempting to get out of bed. Hospitalist aware and order for zyprexa obtained.
[2021-12-31] MEDS: levETIRAcetam 500 MG TABLET PO (03:59)
--- NOTE | 2021-12-31 07:10 | CA_ITS ---
Transthoracic Echocardiogram Patient (Last, First, Middle): Juan Sanders, Gender: Male Date of : 1940 Age: 81 Procedure Date: 12/31/2021 Procedure Type: Transthoracic [place] [facility] [place]: 180.34 cm Weight: 68.95 kg BSA: 1.88 m2 Heart Rate: bpm BP: 116 / 66 mmHg Tonsorial Artist: LAUREN Referring MD: Jackie Reynaga MD Symptoms: new onset AF Study Quality: Technically Difficult ECG Rhythm: Sinus Conclusions: - The left ventricular systolic function is normal. The visually estimated ejection fraction is between 55-60%. - There is mild calcification of the aortic valve. - There is mild mitral annular calcification. - No obvious valvular pathology seen on this study. Findings Left Ventricle Normal left ventricular cavity size. There is mildly increased left ventricular wall thickness. The left ventricular systolic function is normal. The visually estimated ejection fraction is between 55-60%. Regional wall motion abnormalities can not be excluded due to suboptimal endocardial definition. E/E prime ratio is between 8 and 15 consistent with indeterminate filling pressures. Evidence suggests grade I (mild) diastolic dysfunction. There is moderate septal and moderate basal asymmetric hypertrophy. Right Ventricle Normal right ventricular cavity size. There is moderately decreased right ventricular systolic function. Atria Both atria are normal in size. Aortic Valve The aortic valve was not well visualized. There is mild calcification of the aortic valve. There is no aortic valve stenosis. There is no aortic valve regurgitation. Mitral Valve There is mild mitral annular calcification. There is no mitral valve regurgitation. There is no mitral valve stenosis. Pulmonic Valve The pulmonic valve was not well visualized. Tricuspid Valve The tricuspid valve was not well visualized. There is trace tricuspid valve regurgitation. The pulmonary artery systolic pressure is normal. Great Vessels The aorta was not well visualized. The sinuses of valsalva and sino tubular ridge are normal in size. Small plaque is seen in the sino tubular ridge. Venous The inferior vena cava was not well visualized. Pericardium/Pleural There is no evidence of pericardial effusion. Prior Study Comparison No prior study available for comparison. Recommendations, Care & Conclusions No obvious valvular pathology seen on this study. Measurements 2D Linear Measurements IVSd: 1.37 0.6-0.9/0.6-1.0 cm LVIDd: 4.28 3.9-5.3/4.2-5.9 cm LVIDd Index: 2.28 2.4-3.2/2.2-3.1 cm/m2 LVIDs: 3.14 2.0-3.6 cm LVPWd: 1.06 0.7-1.1 cm LA Diam: 3.50 2.7-3.8/3.0-4.0 cm LAIDs Index: 1.86 1.5-2.3 cm/m2 LV Mass: 232.66 67-162/88-224 g LV Mass Index: 123.75 43-95/49-115 g/m2 LVOT Diam: 2.10 3.0+(-)1.3 cm Mitral Valve MV Pk E: 0.54 MV PK A: 0.71 MV Decel Time: 160.00 E/A: 0.80 E'Lateral: 6.31 E'Medial: 4.24 E/E' Med: 12.60 E/E' Lat: 8.50 PHT: 47.00 MVA PHT: 4.68 Decel [place]: 3.35 Aortic Valve AoV Pk Ari: 0.81 AoV Mn Ari: 0.60 AoV VTI: 0.24 AoV Pk Grad: 3.00 Aov Mn Grad: 2.00 AARON Cont.VTI: 2.22 LVOT LVOT Pk Ari: 0.63 LVOT Mn Ari: 0.41 LVOT VTI: 0.15 LVOT Pk Grad: 2.00 LVOT Mn Grad: 1.00 LVOT Diam: 2.10 LVOT Area: 3.46 Diastolic Function MV Pk E: 0.54 MV Pk A: 0.71 E/A: 0.80 E'Medial: 4.24 E/E' Med: 12.60 E' Laterial: 6.31 E/E' Lat: 8.50 Right Ventricle TAPSE (mm): 14.30 TVS' Ari: 5.77 Tricuspid Valve TR Pk Ari: 1.29 TR Pk Grad: 7.00 Great Vessels Aorta Sinus of Valsalva: 3.98 2.0-3.[address] [place]: 2.39 1.7-3.4 cm Updated in Other Vendor System with Status of Final Dennys Vidales MD electronically signed on 12/31/2021 4:00:30 PM with status of Final
[2021-12-31 07:34] LABS: Hematocrit 39.1 % (42.0-52.0); Hemoglobin 12.6 g/dl (14.0-18.0); Mean Corpuscular HGB Conc 32.2 g/dl (31.0-36.0); Mean Corpuscular Hemoglobin 29.2 pg (27.0-33.0); Mean Corpuscular Volume 90.5 fL (80.0-98.0); Mean Platelet Volume 10.5 fL (9.4-12.4); Platelet Count 210 X10*3/uL (160-400); Red Blood Count 4.32 X10*6/uL (4.60-5.80); Red Cell Distribution Width 15.5 % (11.0-16.0); White Blood Count 6.6 X10*3/uL (4.8-10.8)
[2021-12-31 07:48] LABS: Anion Gap 12 (12-20); Blood Urea Nitrogen 16 mg/dL (9-16); Calcium 9.5 mg/dL (8.4-10.2); Carbon Dioxide 27 mmol/L (22-29); Chloride 106 mmol/L (96-108); Creatinine Clr Calc Pharmacy 64.2; Estimated Glomerular Filt Rate > 60; Glucose Random 71 mg/dL (60-115); Sodium 141 mmol/L (135-145)
--- NOTE | 2021-12-31 08:27 | PC.NURSE ---
called [facility] to given report, awaiting a call back
--- NOTE | 2021-12-31 08:32 | PC.NURSE ---
report given gurpreet sutherland on [facility]
--- NOTE | 2021-12-31 10:24 | HO.PM.IMPN ---
Subjective Subjective Date of Service: 12/31/21 Interval History: No further seizures Now in NSR Review of Systems Review of Systems: Yes Unobtainable due to mental status Physical Exam Vital Signs: Vital Signs: Last Vital Signs Pulse 68 12/31/21 05:52 Resp 12 12/31/21 05:52 BP 116/66 12/31/21 05:52 Pulse Ox 96 12/30/21 14:17 BMI result Body Mass Index 21.2 Gen: in no acute distress, incomprehensible words HEENT: sclera anicteric, moist mucus membranes, edentulous Neck: supple Lungs: clear to auscultation bilaterally Heart: regular, no murmurs Abd: soft, non-tender, non-distended Ext: no edema Skin: warm/well-perfused Neuro: alert, unable to assess orientation, follows commands and moves all 4 extremities Psych: impaired insight Objective Data Active Medications Acetaminophen (Acetaminophen 325 Mg Tablet) 650 mg PO Q6H PRN PRN Reason: Pain, Mild (Pain Scale 1-3) Al Hydroxide/Mg Hydroxide (Magnesium Hydrox/Alum Hydrox 30 Ml Oral.Susp) 30 ml PO Q4H PRN PRN Reason: Indigestion Atorvastatin Calcium (Atorvastatin Calcium 20 Mg Tablet) 20 mg PO DAILY [facility] Bisacodyl (Bisacodyl 10 Mg Supp.Rect) 10 mg MA DAILY PRN PRN Reason: Constipation Bisacodyl (Bisacodyl 5 Mg Tablet.Dr) 5 mg PO Q2D@2100 [facility]1983 Last Admin: 12/30/21 21:46 Dose: 5 mg Documented by: EVERARDO Chlorpromazine HCl (Chlorpromazine Hcl 25 Mg Tablet) 25 mg PO BID [facility]1983 Last Admin: 12/30/21 21:46 Dose: 25 mg Documented by: EVERARDO Chlorpromazine HCl (Chlorpromazine Hcl 25 Mg Tablet) 50 mg PO BID [facility] Last Admin: 12/30/21 21:46 Dose: 50 mg Documented by: EVERARDO Enoxaparin Sodium (Enoxaparin Sodium 40 Mg/0.4 Ml Syringe) 40 mg SUBCUT Q24H [facility]1983 Last Admin: 12/30/21 21:44 Dose: 40 mg Documented by: EVERARDO Gabapentin (Gabapentin 100 Mg Capsule) 100 mg PO BID [facility] Last Admin: 12/30/21 21:46 Dose: 100 mg Documented by: EVERARDO Haloperidol Decanoate (Haloperidol Decanoate 50 Mg/Ml Ampul) 10 mg IM Q14D@1000 TERESE Levetiracetam (Keppra) 500 mg in 100 mls @ 400 mls/hr IV Q12H [facility] Last Admin: 12/31/21 03:58 Dose: Not Given Documented by: EVERARDO Non-Admin Reason: See Note Ibuprofen (Ibuprofen 600 Mg Tablet) 600 mg PO Q6H PRN PRN Reason: Pain (Scale Score 4-6) Lactulose (Lactulose 20 Gm/30 Ml Solution) 20 gm PO BID [facility] Last Admin: 12/30/21 21:49 Dose: Not Given Documented by: EVERARDO Non-Admin Reason: See Note Loperamide HCl (Loperamide Hcl 2 Mg Capsule) 2 mg PO Q8H PRN PRN Reason: Diarrhea Multivitamins/Vitamin C (Multivitamin Tablet) 1 tab PO DAILY [facility] Omeprazole (Omeprazole 20 Mg Capsule.Dr) 20 mg PO DAILY@0630 [facility]1983 Ondansetron HCl (Ondansetron Hcl 4 Mg/2 Ml Vial) 4 mg IVPUSH Q8H PRN PRN Reason: Nausea and Vomiting Propranolol HCl (Propranolol Hcl 20 Mg Tablet) 20 mg PO TID [facility], [facility]; Protocol Last Admin: 12/30/21 21:45 Dose: 20 mg Documented by: EVERARDO Senna (Sennosides 8.6 Mg Tablet) 8.6 mg PO DAILY PRN PRN Reason: Constipation Senna/Docusate Sodium (Sennosides/Docusate Sodium Tablet) 2 tab PO BID [facility] Last Admin: 12/30/21 21:46 Dose: 2 tab Documented by: EVERARDO Sodium Chloride (0.9 % Sodium Chloride Flush 3 Ml Syringe) 3 ml IVFLUSH QSHIFT [facility] Last Admin: 12/31/21 02:50 Dose: Not Given Documented by: EVERARDO Non-Admin Reason: See Note Labs CBC & Chem 7: 12/31/21 07:04 12/31/21 07:04 Labs: Laboratory Results - last 24 hr 12/31/21 12/31/21 07:04 07:04 MCV 90.5 MCH 29.2 MCHC 32.2 RDW 15.5 Plt Count 210 MPV 10.5 Absolute Nucleated RBC 0.000 Nucleated RBC % (auto) 0.0 Anion Gap 12 Estim Creat Clear Calc 64.2 Estimated GFR > 60 Random Glucose 71 Calcium 9.5 Assessment and Plan (1) New onset seizure: Status: Acute (2) Atrial fibrillation: Status: Acute Plan 81yo M LTC resident [@ [facility]] with TBI, schizophrenia, dementia, and hx prostate CA sent in after being found unresponsive, found to have new-onset AF [rate-controlled] and then had new-onset generalized tonic-clonic seizure # new-onset seizure - seizure precautions, IV levetiracetam, Neuro consult, EEG # new-onset AF - rate controlled.? per discussion with PCP, only ASA for anticoagulation.? TTE, cardiology consult # subclinical hypothyroidism vs. sick euthyroid syndrome - recheck TFTs in 6 mo # HLD - statin # schizophrenia - continue haloperidol decanoate, chlorpromazine # VTE ppx - LMWH In my clinical judgment, the patient requires continued hospitalization for the following reasons: seizure + AF workup Quality Stroke Does the patient have a stroke diagnosis?: No VTE Prior VTE?: No VTE Risk Level:: Medical - moderate - high VTE Device Contraindication: N/A - Device Ordered VTE Drug Contraindication: N/A - Med Ordered
--- NOTE | 2021-12-31 11:07 | MHC.CM.PN ---
pt admitted from [facility] one of shaun jones he will return when merdically stable
--- NOTE | 2021-12-31 11:14 | P.CNNE_ITS ---
History of Present Illness Data of Consult Service Date: 12/31/21 Primary Care Provider: DO MARNIE Conner Reason for consult: Seizure disorder 81 years old man with underlying psychotic disorder and dementia who recently was diagnosed with atrial fibrillation and had a generalized convulsion in emergency room. He was treated with antiepileptic agent and was noted to be in postictal state. He was unable to provide any meaningful history. Review of Systems Review of Systems: Unable to obtain review of system questions PMFSH Past Medical History Medical History COPD (chronic obstructive pulmonary disease) Dementia Malignant neoplasm of prostate Prostate cancer Schizophrenia Family History Family History (Updated 12/30/21 @ 17:47 by Jackie Reynaga MD) Other Family history unknown Social History Social History Alcohol intake: never Patient Tobacco Use Status: Tobacco use Unknown service: No Meds Allergies Allergy/AdvReac Type Severity Reaction Status Date / Time No Known Allergies Allergy Unverified 06/19/20 17:10 [No Known Allergies*] Active Medications: Current Medications Acetaminophen (Acetaminophen 325 Mg Tablet) 650 mg PO Q6H PRN PRN Reason: Pain, Mild (Pain Scale 1-3) Al Hydroxide/Mg Hydroxide (Magnesium Hydrox/Alum Hydrox 30 Ml Oral.Susp) 30 ml PO Q4H PRN PRN Reason: Indigestion Aspirin (Aspirin 81 Mg Tab.Chew) 81 mg PO DAILY [facility] Atorvastatin Calcium (Atorvastatin Calcium 20 Mg Tablet) 20 mg PO DAILY [facility] Bisacodyl (Bisacodyl 10 Mg Supp.Rect) 10 mg [place] DAILY PRN PRN Reason: Constipation Bisacodyl (Bisacodyl 5 Mg Tablet.Dr) 5 mg PO Q2D@2100 [facility] Last Admin: 12/30/21 21:46 Dose: 5 mg Documented by: Chlorpromazine HCl (Chlorpromazine Hcl 25 Mg Tablet) 25 mg PO BID [facility] Last Admin: 12/30/21 21:46 Dose: 25 mg Documented by: Chlorpromazine HCl (Chlorpromazine Hcl 25 Mg Tablet) 50 mg PO BID [facility] Last Admin: 12/30/21 21:46 Dose: 50 mg Documented by: Enoxaparin Sodium (Enoxaparin Sodium 40 Mg/0.4 Ml Syringe) 40 mg SUBCUT Q24H [facility] Last Admin: 12/30/21 21:44 Dose: 40 mg Documented by: Gabapentin (Gabapentin 100 Mg Capsule) 100 mg PO BID [facility] Last Admin: 12/30/21 21:46 Dose: 100 mg Documented by: Haloperidol Decanoate (Haloperidol Decanoate 50 Mg/Ml Ampul) 10 mg IM Q14D@1000 [facility] Levetiracetam (Keppra) 500 mg in 100 mls @ 400 mls/hr IV Q12H [facility] Last Admin: 12/31/21 03:58 Dose: Not Given Documented by: Ibuprofen (Ibuprofen 600 Mg Tablet) 600 mg PO Q6H PRN PRN Reason: Pain (Scale Score 4-6) Lactulose (Lactulose 20 Gm/30 Ml Solution) 20 gm PO BID [facility] Last Admin: 12/30/21 21:49 Dose: Not Given Documented by: Loperamide HCl (Loperamide Hcl 2 Mg Capsule) 2 mg PO Q8H PRN PRN Reason: Diarrhea Multivitamins/Vitamin C (Multivitamin Tablet) 1 tab PO DAILY [facility] Omeprazole (Omeprazole 20 Mg Capsule.Dr) 20 mg PO DAILY@0630 [facility] Ondansetron HCl (Ondansetron Hcl 4 Mg/2 Ml Vial) 4 mg IVPUSH Q8H PRN PRN Reason: Nausea and Vomiting Propranolol HCl (Propranolol Hcl 20 Mg Tablet) 20 mg PO TID [facility]; Protocol Last Admin: 12/30/21 21:45 Dose: 20 mg Documented by: Senna (Sennosides 8.6 Mg Tablet) 8.6 mg PO DAILY PRN PRN Reason: Constipation Senna/Docusate Sodium (Sennosides/Docusate Sodium Tablet) 2 tab PO BID [facility] Last Admin: 12/30/21 21:46 Dose: 2 tab Documented by: Sodium Chloride (0.9 % Sodium Chloride Flush 3 Ml Syringe) 3 ml IVFLUSH QSHIFT [facility] Last Admin: 12/31/21 02:50 Dose: Not Given Documented by: Home Medications Medication Instructions Recorded Confirmed Last Taken Type acetaminophen 325 mg tablet 650 mg PO Q4H PRN 12/30/21 12/30/21 Unknown History aluminum-mag hydroxide-simethicone 30 ml PO Q4H PRN 12/30/21 12/30/21 Unknown History 200 mg-200 mg-20 mg/5 mL oral susp atorvastatin 20 mg tablet 20 mg PO DAILY 12/30/21 12/30/21 Unknown History bisacodyl 10 mg rectal suppository 10 mg [place] DAILY PRN 12/30/21 12/30/21 Unknown History bisacodyl 5 mg tablet 5 mg PO Q2D@2100 12/30/21 12/30/21 Unknown History chlorpromazine 25 mg tablet 25 mg PO BID 12/30/21 12/30/21 Unknown History chlorpromazine 50 mg tablet 50 mg PO BID 12/30/21 12/30/21 Unknown History esomeprazole magnesium 40 mg 40 mg PO BID 12/30/21 12/30/21 Unknown History capsule,delayed release (Nexium) gabapentin 100 mg capsule 100 mg PO BID 12/30/21 12/30/21 Unknown History haloperidol decanoate 50 mg/mL 10 mg IM Q14D 12/30/21 12/30/21 12/28/21 History intramuscular solution (Haldol Decanoate) ibuprofen 600 mg tablet 600 mg PO Q6H PRN 12/30/21 12/30/21 Unknown History lactulose 10 gram/15 mL oral 20 g PO BID 12/30/21 12/30/21 Unknown History solution lanolin alcohols-mineral 1 appl TOPICAL DAILY PRN 12/30/21 12/30/21 Unknown History oil-w.petrolatum-ceresin topical cream (Minerin Creme) levothyroxine 50 mcg tablet 50 mcg PO DAILY@0600 12/30/21 12/30/21 Unknown History loperamide 2 mg capsule 2 mg PO Q8H PRN 12/30/21 12/30/21 Unknown History metoclopramide HCl 5 mg tablet 5 mg PO BID 12/30/21 12/30/21 Unknown History multivitamin 1 tab PO DAILY 12/30/21 12/30/21 Unknown History ondansetron 4 mg disintegrating 4 mg PO Q4H PRN 12/30/21 12/30/21 Unknown History tablet propranolol 20 mg tablet 20 mg PO TID 12/30/21 12/30/21 Unknown History sennosides 8.6 mg tablet (senna) 8.6 mg PO DAILY PRN 12/30/21 12/30/21 Unknown History sennosides 8.6 mg-docusate sodium 2 tab-cap PO BID 12/30/21 12/30/21 Unknown History 50 mg tablet (Senna Plus) tamsulosin 0.4 mg capsule 0.4 mg PO DAILY 12/30/21 12/30/21 Unknown History tramadol 50 mg tablet 50 mg PO BID 12/30/21 12/30/21 Unknown History tramadol 50 mg tablet 50 mg PO Q8H PRN 12/30/21 12/30/21 Unknown History Physical Exam Vital Signs: Vital Signs: Last Vital Signs Temp 90.1 F L 12/31/21 11:02 Pulse 66 12/31/21 11:02 Resp 19 12/31/21 11:02 BP 149/73 H 12/31/21 11:02 Pulse Ox 100 12/31/21 11:02 BMI result Body Mass Index 21.2 Neuro: Other: He is drowsy but able to open eyes and mumbles though I was not able to make sense of what he was saying. He became relatively alert after a minute or 2 but his speech did not improve. There was no obvious focal arm or leg weakness. Face was symmetrical. Visual martinez were difficult to determine. Exam was limited. Results Labs CBC & Chem 7: 12/31/21 07:04 12/31/21 07:04 Labs: Short CBC 12/31/21 Range/Units 07:04 WBC 6.6 (4.8-10.8) X10*3/uL Hgb 12.6 L (14.0-18.0) g/dl Hct 39.1 L (42.0-52.0) % Plt Count 210 (160-400) X10*3/uL BMP 12/31/21 07:04 Sodium 141 Potassium 4.0 D Chloride 106 Carbon Dioxide 27 BUN 16 Creatinine 0.[address]cium [address] revealed moderately severe diffuse atrophy central and cortical and moderately severe chronic microvascular ischemic changes. Assessment and Plan (1) New onset seizure: Status: Acute 81 years old man with underlying history of psychotic disorder, dementia, and prostate cancer presented with new onset of generalized seizure disorder. At this time my recommendation is to treat him with Keppra 500 mg twice a day. As far as atrial fibrillation is concerned, anticoagulation can be started. Procedures Date of Service Date of Service: 12/31/21
--- NOTE | 2021-12-31 11:59 | P.CDIC_ITS ---
CDI Concurrent Query Documentation Clarification: PHYSICIAN'S DOCUMENTATION REQUEST Date of Query: 12/31/21 1159 Patient Name: Juan Sanders Admit Date: 12/30/21 Dear Doctor, A review of the medical record indicates additional documentation may be needed. Please review below and update the documentation accordingly. Risk Factors/Clinical Indicators/Treatments Nursing notes 12/31 - dementia, patient increasingly aggressive and agitated, striking out at t/w and other staff with hands and feet. Caught attempting to get out of bed. notified - Zyprexa ordered. If possible, please further clarify type of Alzheimer's and any associated manifestations: * Dementia without behavioral disturbance * Dementia with behavioral disturbance * Aggressive behavior * Combative behavior * Violent behavior * Dementia with delirium * Confusion * Sundowning * No associated manifestations * Other ? please specify * Unable to determine Use of terms such as suspected, likely, concern for, or probable (associated with a specific diagnosis that is being evaluated, monitored, or treated as if it exists) are acceptable and can be coded in the inpatient setting, when documented at the time of discharge. Thank you, Sarah Sandra [facility], CDIS Extension: [phone] Please use your independent medical judgment in providing your response. THIS QUERY IS PART OF THE PERMANENT MEDICAL RECORD Provider Response: Other Other Diagnosis: dementia w behavioral disturbance
--- NOTE | 2021-12-31 12:02 | PM.CNCAR ---
History of Present Illness History of Present Illness Date of Service: 12/31/21 Chief complaint: New Onset Seizure + AF Narrative: This is a cardiology consultation regarding atrial fibrillation. Patient is really not able to give any information at all in spite of numerous attempts. Hence H&P was reviewed. It seems that he is a resident from [facility]. He has a history of traumatic brain injury, schizophrenia, dementia. He has been admitted because of being found unresponsive. However, upon EMS arrival he was awake and alert and at baseline status. In the ER apparently he was found to be in atrial fibrillation but controlled ventricular rate. Then [facility] but when he went there he was having a seizure and then he was brought back to the ED. At this time, he is not able to give any information whatsoever. Review of Systems Review of Systems: Patient unable to give any information whatsoever. [facility] Past Medical History Medical History COPD (chronic obstructive pulmonary disease) Dementia Malignant neoplasm of prostate Prostate cancer Schizophrenia Family History Family History (Updated 12/30/21 @ 17:47 by Jackie Reynaga MD) Other Family history unknown Pertinent family history: Patient not able to provide. Social History Social History Household Members: Other Housing: [facility] Do you presently have visiting nurse or other home services: No Unable to assess alcohol history related to: Unable to respond Alcohol intake: never Patient Tobacco Use Status: Tobacco use Unknown service: No Meds Allergies Allergy/AdvReac Type Severity Reaction Status Date / Time No Known Allergies Allergy Unverified 06/19/20 17:10 [No Known Allergies*] Active Medications: Current Medications Acetaminophen (Acetaminophen 325 Mg Tablet) 650 mg PO Q6H PRN PRN Reason: Pain, Mild (Pain Scale 1-3) Al Hydroxide/Mg Hydroxide (Magnesium Hydrox/Alum Hydrox 30 Ml Oral.Susp) 30 ml PO Q4H PRN PRN Reason: Indigestion Aspirin (Aspirin 81 Mg Tab.Chew) 81 mg PO DAILY [facility] Atorvastatin Calcium (Atorvastatin Calcium 20 Mg Tablet) 20 mg PO DAILY [facility] Bisacodyl (Bisacodyl 10 Mg Supp.Rect) 10 mg [place] DAILY PRN PRN Reason: Constipation Bisacodyl (Bisacodyl 5 Mg Tablet.) 5 mg PO Q2D@2100 [facility] Last Admin: 12/30/21 21:46 Dose: 5 mg Documented by: Chlorpromazine HCl (Chlorpromazine Hcl 25 Mg Tablet) 25 mg PO BID [facility] Last Admin: 12/30/21 21:46 Dose: 25 mg Documented by: Chlorpromazine HCl (Chlorpromazine Hcl 25 Mg Tablet) 50 mg PO BID [facility] Last Admin: 12/30/21 21:46 Dose: 50 mg Documented by: Enoxaparin Sodium (Enoxaparin Sodium 40 Mg/0.4 Ml Syringe) 40 mg SUBCUT Q24H [facility] Last Admin: 12/30/21 21:44 Dose: 40 mg Documented by: Gabapentin (Gabapentin 100 Mg Capsule) 100 mg PO BID [facility] Last Admin: 12/30/21 21:46 Dose: 100 mg Documented by: Haloperidol Decanoate (Haloperidol Decanoate 50 Mg/Ml Ampul) 10 mg IM Q14D@1000 [facility] Levetiracetam (Keppra) 500 mg in 100 mls @ 400 mls/hr IV Q12H [facility] Last Admin: 12/31/21 03:58 Dose: Not Given Documented by: Ibuprofen (Ibuprofen 600 Mg Tablet) 600 mg PO Q6H PRN PRN Reason: Pain (Scale Score 4-6) Lactulose (Lactulose 20 Gm/30 Ml Solution) 20 gm PO BID [facility] Last Admin: 12/30/21 21:49 Dose: Not Given Documented by: Loperamide HCl (Loperamide Hcl 2 Mg Capsule) 2 mg PO Q8H PRN PRN Reason: Diarrhea Multivitamins/Vitamin C (Multivitamin Tablet) 1 tab PO DAILY [facility] Omeprazole (Omeprazole 20 Mg Capsule.) 20 mg PO DAILY@0630 [facility] Ondansetron HCl (Ondansetron Hcl 4 Mg/2 Ml Vial) 4 mg IVPUSH Q8H PRN PRN Reason: Nausea and Vomiting Propranolol HCl (Propranolol Hcl 20 Mg Tablet) 20 mg PO TID [facility]; Protocol Last Admin: 12/30/21 21:45 Dose: 20 mg Documented by: Senna (Sennosides 8.6 Mg Tablet) 8.6 mg PO DAILY PRN PRN Reason: Constipation Senna/Docusate Sodium (Sennosides/Docusate Sodium Tablet) 2 tab PO BID [facility] Last Admin: 12/30/21 21:46 Dose: 2 tab Documented by: Sodium Chloride (0.9 % Sodium Chloride Flush 3 Ml Syringe) 3 ml IVFLUSH QSHIFT [facility] Last Admin: 12/31/21 02:50 Dose: Not Given Documented by: Home Medications Medication Instructions Recorded Confirmed Last Taken Type acetaminophen 325 mg tablet 650 mg PO Q4H PRN 12/30/21 12/30/21 Unknown History aluminum-mag hydroxide-simethicone 30 ml PO Q4H PRN 12/30/21 12/30/21 Unknown History 200 mg-200 mg-20 mg/5 mL oral susp atorvastatin 20 mg tablet 20 mg PO DAILY 12/30/21 12/30/21 Unknown History bisacodyl 10 mg rectal suppository 10 mg [place] DAILY PRN 12/30/21 12/30/21 Unknown History bisacodyl 5 mg tablet 5 mg PO Q2D@2100 12/30/21 12/30/21 Unknown History chlorpromazine 25 mg tablet 25 mg PO BID 12/30/21 12/30/21 Unknown History chlorpromazine 50 mg tablet 50 mg PO BID 12/30/21 12/30/21 Unknown History esomeprazole magnesium 40 mg 40 mg PO BID 12/30/21 12/30/21 Unknown History capsule,delayed release (Nexium) gabapentin 100 mg capsule 100 mg PO BID 12/30/21 12/30/21 Unknown History haloperidol decanoate 50 mg/mL 10 mg IM Q14D 12/30/21 12/30/21 12/28/21 History intramuscular solution (Haldol Decanoate) ibuprofen 600 mg tablet 600 mg PO Q6H PRN 12/30/21 12/30/21 Unknown History lactulose 10 gram/15 mL oral 20 g PO BID 12/30/21 12/30/21 Unknown History solution lanolin alcohols-mineral 1 appl TOPICAL DAILY PRN 12/30/21 12/30/21 Unknown History oil-w.petrolatum-ceresin topical cream (Minerin Creme) levothyroxine 50 mcg tablet 50 mcg PO DAILY@0600 12/30/21 12/30/21 Unknown History loperamide 2 mg capsule 2 mg PO Q8H PRN 12/30/21 12/30/21 Unknown History metoclopramide HCl 5 mg tablet 5 mg PO BID 12/30/21 12/30/21 Unknown History multivitamin 1 tab PO DAILY 12/30/21 12/30/21 Unknown History ondansetron 4 mg disintegrating 4 mg PO Q4H PRN 12/30/21 12/30/21 Unknown History tablet propranolol 20 mg tablet 20 mg PO TID 12/30/21 12/30/21 Unknown History sennosides 8.6 mg tablet (senna) 8.6 mg PO DAILY PRN 12/30/21 12/30/21 Unknown History sennosides 8.6 mg-docusate sodium 2 tab-cap PO BID 12/30/21 12/30/21 Unknown History 50 mg tablet (Senna Plus) tamsulosin 0.4 mg capsule 0.4 mg PO DAILY 12/30/21 12/30/21 Unknown History tramadol 50 mg tablet 50 mg PO BID 12/30/21 12/30/21 Unknown History tramadol 50 mg tablet 50 mg PO Q8H PRN 12/30/21 12/30/21 Unknown History Physical Exam Vital Signs: Vital Signs: Last Vital Signs Temp 90.1 F L 12/31/21 11:02 Pulse 66 12/31/21 11:02 Resp 19 12/31/21 11:02 BP 149/73 H 12/31/21 11:02 Pulse Ox 100 12/31/21 11:02 BMI result Body Mass Index 21.2 Const: General: comfortable HEENT: Other: Unremarkable Head: Yes normal to inspection Neck: Neck: Yes normal visual inspection Chest: Chest palpation & inspection: normal inspection of the chest Resp: Auscultation: clear to auscultation bilaterally Cardio: Palpation: normal PMI Heart sounds: S1 normal heart sound present, S2 normal heart sound present, no gallops, no murmurs and no rubs GI: Palpation (GI): Soft to palpation Back/Spine/Pelvis: Other: unremarkable Skin: General skin exam: no rashes or lesions noted Neuro: Cognition (Neuro): abnormal cognition Extrem: General: Yes normal to inspection Psych: Other: not responding to communication and unable to answer any questions. Objective Labs and Meds Result diagrams: 12/31/21 07:04 12/31/21 07:04 Lab results: Laboratory Results - last 24 hr 12/31/21 12/31/21 07:04 07:04 WBC 6.6 RBC 4.32 L Hgb 12.6 L Hct 39.1 L MCV 90.5 MCH 29.2 MCHC 32.2 RDW 15.5 Plt Count 210 MPV 10.5 Absolute Nucleated RBC 0.000 Nucleated RBC % (auto) 0.0 Sodium 141 Potassium 4.0 D Chloride 106 Carbon Dioxide 27 Anion Gap 12 BUN 16 Creatinine 0.85 Estim Creat Clear Calc 64.2 Estimated GFR > 60 Random Glucose 71 Calcium 9.5 ECG Interpretation: EKG from yesterday shows atrial fibrillation at a rate of 121/Min; nonspecific ST-T changes. Currently, he is in sinus rhythm on the telemetry. Imaging Radiologist's impression: Impressions Head CT 12/30/21 15:04 IMPRESSION: No acute intracranial pathology. Assessment and Plan (1) Atrial fibrillation with rapid ventricular response: Status: Acute Plan Patient presented with atrial fibrillation rapid rate but currently in sinus rhythm. Based on home medications he is on propranolol 20 mg t.i.d.. Not clear why he is taking that. With regard to the actual atrial fibrillation itself, not clear if it is secondary to the seizures or dizzy actually have proximal atrial fibrillation but not previously known. We will get an echocardiogram for further assessment including LV function as well as atrial size extra. We can possibly switch his beta-blockers based on the above information. Otherwise, with regard to anticoagulation, need to discuss with his primary care as physician from [facility] regarding suitability. Will follow up with you. Procedures Date of Service Date of Service: 12/31/21
[2021-12-31] MEDS: Propranolol HCL 20 MG TABLET PO (12:29)
[2021-12-31] MEDS: Lactulose 20 GM/30 ML SOLUTION PO (12:29)
[2021-12-31] MEDS: Gabapentin 100 MG CAPSULE PO (12:29)
[2021-12-31] MEDS: Aspirin 81 MG TAB.CHEW PO (12:30)
[2021-12-31] MEDS: Atorvastatin Calcium 20 MG TABLET PO (12:30)
[2021-12-31] MEDS: chlorproMAZINE HCl 25 MG TABLET 50 MG PO (12:30)
[2021-12-31] MEDS: chlorproMAZINE HCl 25 MG TABLET PO (12:30)
[2021-12-31] MEDS: Sennosides/Docusate Sodium TABLET 2 TAB PO (12:31)
[2021-12-31] MEDS: Multivitamin TABLET 1 TAB PO (12:37)
[2021-12-31] MEDS: 0.9 % Sodium Chloride Flush 3 ML SYRINGE IVFLUSH ×2 (12:58→17:45)
[2021-12-31] MEDS: levETIRAcetam in NaCl (iso-os) 500 MG/100 ML PIGGYBACK 400 MG IV (12:58)
--- NOTE | 2021-12-31 15:45 | PC.NURSE ---
1500 responding to alarm, pt found on floor next to bed, lying on left side. Scant amt bleeding from left gr toe. No other injuries noted. Assisted BTB Bed alarm on. notified.
--- NOTE | 2021-12-31 16:17 | PM.EVENT ---
Event Note Date of Service: 12/31/21 Event Note: RN called to report pt climbed over rails and fell to ground. No head trauma. No seizure. Pt awake, at baseline mental status, VS normal except hypothermic to 90.[address] head, CXR, labs, BCx UA/UM/UCx
[2021-12-31 17:07] LABS: Hematocrit 35.8 % (42.0-52.0); Hemoglobin 11.9 g/dl (14.0-18.0); Mean Corpuscular HGB Conc 33.2 g/dl (31.0-36.0); Mean Corpuscular Hemoglobin 30.4 pg (27.0-33.0); Mean Corpuscular Volume 91.6 fL (80.0-98.0); Mean Platelet Volume 9.9 fL (9.4-12.4); Platelet Count 176 X10*3/uL (160-400); Red Blood Count 3.91 X10*6/uL (4.60-5.80); White Blood Count 4.9 X10*3/uL (4.8-10.8)
[2021-12-31 17:20] LABS: Alanine Aminotransferase 18 U/L (0-40); Albumin Level 3.4 g/dL (3.5-5.0); Alkaline Phosphatase 136 U/L (39-117); Anion Gap 14 (12-20); Aspartate Amino Transferase 23 U/L (5-37); Bilirubin Total 0.3 mg/dL (0.0-1.0); Blood Urea Nitrogen 17 mg/dL (9-16); C Reactive Protein 4.53 mg/dL (< or = 0.50); Calcium 9.3 mg/dL (8.4-10.2); Carbon Dioxide 25 mmol/L (22-29); Chloride 107 mmol/L (96-108); Estimated Glomerular Filt Rate > 60; Glucose Random 84 mg/dL (60-115); Sodium 142 mmol/L (135-145)
[2021-12-31 17:37] LABS: Procalcitonin 0.11 ng/mL
--- NOTE | 2022-01-01 | EEG_ITS ---
The waking background activity consists of low voltage fast frequencies seen diffusely, intermixed with a posterior 8 to 9 hertz low-voltage alpha frequency and muscle artifacts anteriorly. Drowsiness is characterized by diffuse theta slowing. Photic stimulation is without activation. No focal, lateralizing, or paroxysmal discharges seen. IMPRESSION: This awake and drowsy electroencephalogram within normal limits. MD KAROL Jones/FINESSE / [id number]
[2022-01-01] MEDS: 0.9 % Sodium Chloride Flush 3 ML SYRINGE IVFLUSH ×3 (00:43→23:29)
--- NOTE | 2022-01-01 07:01 | PC.NURSE ---
Patient has been combative overnight , has been hitting and punching staff. He has also fallen x2 during days.IV is infiltrated therefore unable to administer IV Keppra. Keppra po ordered although patient uncooperative and will not take po meds at this time . Unable to obtain urine, hospitalist and nursing telephone information supervisor notified. 1:1 sitter ordered. Will reassess on the dayshift.
[2022-01-01] MEDS: Lactulose 20 GM/30 ML SOLUTION PO (08:12)
[2022-01-01] MEDS: levETIRAcetam 500 MG TABLET PO ×2 (08:13→20:42)
[2022-01-01] MEDS: Propranolol HCL 20 MG TABLET PO ×2 (08:13→20:42)
[2022-01-01] MEDS: Sennosides/Docusate Sodium TABLET 2 TAB PO ×2 (08:13→20:49)
[2022-01-01] MEDS: Atorvastatin Calcium 20 MG TABLET PO (08:13)
[2022-01-01] MEDS: chlorproMAZINE HCl 25 MG TABLET PO ×2 (08:13→20:42)
[2022-01-01] MEDS: Aspirin 81 MG TAB.CHEW PO (08:13)
[2022-01-01] MEDS: Omeprazole 20 MG CAPSULE.DR PO (08:14)
[2022-01-01] MEDS: Gabapentin 100 MG CAPSULE PO ×2 (08:14→20:43)
[2022-01-01] MEDS: chlorproMAZINE HCl 25 MG TABLET 50 MG PO ×2 (08:14→20:42)
[2022-01-01] MEDS: Multivitamin TABLET 1 TAB PO (08:14)
[2022-01-01 09:59] LABS: Cortisol Random 10.1 ug/dL
[2022-01-01 10:06] VITALS: BP 117/64; PULSE 80; RESP 18; TEMP 34.4
[2022-01-01] MEDS: cefTRIAXone sodium 1 GM in 0.9 % Sodium Chloride 50 ML IV (11:58)
[2022-01-01 11:59] VITALS: BP 125/78; PULSE 76; RESP 20; TEMP 35.7; O2SAT 96
--- NOTE | 2022-01-01 12:03 | P.PNIM_ITS ---
Subjective Subjective Date of Service: 01/01/22 Interval History: Pt climbed out of bed yesterday Agitated yesterday, sitter placed Became hypothermic yesterday, again today Unable to obtain ROS due to dementia Review of Systems Review of Systems: Yes Unobtainable due to mental status Physical Exam Vital Signs: Vital Signs: Last Vital Signs Temp 96.2 F L 01/01/22 11:59 Pulse 76 01/01/22 11:59 Resp 20 01/01/22 11:59 BP 125/78 01/01/22 11:59 Pulse Ox 96 01/01/22 11:59 BMI result Body Mass Index 21.2 Gen: in no acute distress, incomprehensible words HEENT: sclera anicteric, moist mucus membranes, edentulous Neck: supple Lungs: diminished L base Heart: regular, no murmurs Abd: soft, non-tender, non-distended Ext: no edema Skin: warm/well-perfused Neuro: alert, unable to assess orientation, follows commands and moves all 4 extremities Psych: impaired insight Objective Data Active Medications Acetaminophen (Acetaminophen 325 Mg Tablet) 650 mg PO Q6H PRN PRN Reason: Pain, Mild (Pain Scale 1-3) Al Hydroxide/Mg Hydroxide (Magnesium Hydrox/Alum Hydrox 30 Ml Oral.Susp) 30 ml PO Q4H PRN PRN Reason: Indigestion Aspirin (Aspirin 81 Mg Tab.Chew) 81 mg PO DAILY [facility] Last Admin: 01/01/22 08:13 Dose: 81 mg Documented by: CÉSAR Atorvastatin Calcium (Atorvastatin Calcium 20 Mg Tablet) 20 mg PO DAILY [facility] Last Admin: 01/01/22 08:13 Dose: 20 mg Documented by: CÉSAR Bisacodyl (Bisacodyl 10 Mg Supp.Rect) 10 mg [place] DAILY PRN PRN Reason: Constipation Bisacodyl (Bisacodyl 5 Mg Tablet.Dr) 5 mg PO Q2D@2100 [facility] Last Admin: 12/30/21 21:46 Dose: 5 mg Documented by: EVERARDO Chlorpromazine HCl (Chlorpromazine Hcl 25 Mg Tablet) 25 mg PO BID [facility] Last Admin: 01/01/22 08:13 Dose: 25 mg Documented by: CÉSAR Chlorpromazine HCl (Chlorpromazine Hcl 25 Mg Tablet) 50 mg PO BID [facility] Last Admin: 01/01/22 08:14 Dose: 50 mg Documented by: CÉSAR Enoxaparin Sodium (Enoxaparin Sodium 40 Mg/0.4 Ml Syringe) 40 mg SUBCUT Q24H [facility] Last Admin: 12/31/21 21:32 Dose: Not Given Documented by: JASON Non-Admin Reason: Patient Refused Gabapentin (Gabapentin 100 Mg Capsule) 100 mg PO BID [facility] Last Admin: 01/01/22 08:14 Dose: 100 mg Documented by: CÉSAR Haloperidol Decanoate (Haloperidol Decanoate 50 Mg/Ml Ampul) 10 mg IM Q14D@1000 [facility] Ceftriaxone Sodium 1 gm/ (Sodium Chloride) 50 mls @ 100 mls/hr IV Q24H [facility] Last Admin: 01/01/22 11:58 Dose: 100 mls/hr Documented by: CÉSAR Doxycycline Hyclate 100 mg/ (Sodium Chloride) 250 mls @ 166.67 mls/hr IV Q12H [facility] Ibuprofen (Ibuprofen 600 Mg Tablet) 600 mg PO Q6H PRN PRN Reason: Pain (Scale Score 4-6) Lactulose (Lactulose 20 Gm/30 Ml Solution) 20 gm PO BID [facility] Last Admin: 01/01/22 08:12 Dose: 20 gm Documented by: CÉSAR Levetiracetam (Levetiracetam 500 Mg Tablet) 500 mg PO BID [facility] Last Admin: 01/01/22 08:13 Dose: 500 mg Documented by: CÉSAR Loperamide HCl (Loperamide Hcl 2 Mg Capsule) 2 mg PO Q8H PRN PRN Reason: Diarrhea Multivitamins/Vitamin C (Multivitamin Tablet) 1 tab PO DAILY [facility] Last Admin: 01/01/22 08:14 Dose: 1 tab Documented by: CÉSAR Omeprazole (Omeprazole 20 Mg Capsule.) 20 mg PO DAILY@0630 [facility] Last Admin: 01/01/22 08:14 Dose: 20 mg Documented by: CÉSAR Ondansetron HCl (Ondansetron Hcl 4 Mg/2 Ml Vial) 4 mg IVPUSH Q8H PRN PRN Reason: Nausea and Vomiting Propranolol HCl (Propranolol Hcl 20 Mg Tablet) 20 mg PO TID [facility]; Protocol Last Admin: 01/01/22 08:13 Dose: 20 mg Documented by: CÉSAR Senna (Sennosides 8.6 Mg Tablet) 8.6 mg PO DAILY PRN PRN Reason: Constipation Senna/Docusate Sodium (Sennosides/Docusate Sodium Tablet) 2 tab PO BID [facility] Last Admin: 01/01/22 08:13 Dose: 2 tab Documented by: CÉSAR Sodium Chloride (0.9 % Sodium Chloride Flush 3 Ml Syringe) 3 ml IVFLUSH QSHIFT [facility] Last Admin: 01/01/22 08:14 Dose: Not Given Documented by: CÉSAR Non-Admin Reason: No Access Labs CBC & Chem 7: 12/31/21 16:53 12/31/21 16:53 Labs: Laboratory Results - last 24 hr 12/31/21 12/31/21 12/31/21 16:53 16:53 16:53 MCV 91.6 MCH 30.4 MCHC 33.2 RDW 16.0 Plt Count 176 MPV 9.9 Absolute Nucleated RBC 0.000 Nucleated RBC % (auto) 0.0 Anion Gap 14 Estim Creat Clear Calc 65.0 Estimated GFR > 60 Random Glucose 84 Calcium 9.3 Total Bilirubin 0.3 AST 23 ALT 18 Alkaline Phosphatase 136 H C-Reactive Protein 4.53 H Total Protein 6.0 L Albumin 3.4 L Procalcitonin 0.11 Random Cortisol 01/01/22 08:38 MCV MCH MCHC RDW Plt Count MPV Absolute Nucleated RBC Nucleated RBC % (auto) Anion Gap Estim Creat Clear Calc Estimated GFR Random Glucose Calcium Total Bilirubin AST ALT Alkaline Phosphatase C-Reactive Protein Total Protein Albumin Procalcitonin Random Cortisol 10.1 12/31/21 TTE - The left ventricular systolic function is normal.? The visually estimated ejection fraction is between 55-60%. ? - There is mild calcification of the aortic valve. ? - There is mild mitral annular calcification.? - No obvious valvular pathology seen on this study.? ?? Impressions Chest X-Ray 12/31/21 16:29 IMPRESSION: Worsening pulmonary aeration in the retrocardiac region/left lower lobe which could potentially be related with patient's rotation. Other differentials include worsening atelectasis, aspiration or developing pneumonia in the appropriate clinical context. Query a trace amount of left-sided pleural fluid. Head CT 12/31/21 17:16 IMPRESSION: No evidence of acute intracranial hemorrhage or edematous territorial infarction. Chest CT 01/01/22 09:31 IMPRESSION: Question small right lower lobe pneumonia. Atherosclerotic disease. Very full stomach question constipation. Fleischner guidelines were followed. Assessment and Plan (1) New onset seizure: Status: Acute (2) Atrial fibrillation: Status: Acute Plan hospital d#3 81yo M LTC resident [@ [facility]] with TBI, schizophrenia, dementia, and hx prostate CA sent in after being found unresponsive, found to have new-onset AF [rate-controlled] and then had new-onset generalized tonic-clonic seizure # hypothermia # RLL PNA - start ceftriaxone + doxycycline, follow BCx. RVP negative # new-onset seizure - seizure precautions, levetiracetam, Neuro consulted, EEG pending # new-onset AF - rate controlled.? per discussion with PCP, only ASA for anticoagulation. # subclinical hypothyroidism vs. sick euthyroid syndrome - recheck TFTs in 6 mo # HLD - statin # schizophrenia - continue haloperidol decanoate, chlorpromazine # VTE ppx - LMWH In my clinical judgment, the patient requires continued hospitalization for the following reasons: hypothermia Quality Stroke Does the patient have a stroke diagnosis?: No VTE Prior VTE?: No VTE Risk Level:: Medical - moderate - high VTE Device Contraindication: N/A - Device Ordered VTE Drug Contraindication: N/A - Med Ordered
[2022-01-01 12:35] LABS: Adenovirus PCR Not Detected (Not Detect.); Bordetella parapertussis PCR Not Detected (Not Detect.); Bordetella pertussis PCR Not Detected (Not Detect.); Chlamydia pneumoniae PCR Not Detected (Not Detect.); Coronavirus 229E PCR Not Detected (Not Detect.); Coronavirus HKU1 PCR Not Detected (Not Detect.); Coronavirus NL63 PCR Not Detected (Not Detect.); Coronavirus OC43 PCR Not Detected (Not Detect.); Human metapneumovirus PCR Not Detected (Not Detect.); Influenza A PCR Not Detected (Not Detect.); Influenza B PCR Not Detected (Not Detect.); Mycoplasma pneumoniae PCR Not Detected (Not Detect.); Parainfluenza 1 PCR Not Detected (Not Detect.); Parainfluenza 2 PCR Not Detected (Not Detect.); Parainfluenza 3 PCR Not Detected (Not Detect.); Parainfluenza 4 PCR Not Detected (Not Detect.); RSV PCR Not Detected (Not Detect.); Rhino/Enterovirus PCR Not Detected (Not Detect.); SARS-CoV-2 PCR Not Detected (Not Detect.)
[2022-01-01] MEDS: Doxycycline Hyclate 100 MG in 0.9 % Sodium Chloride 250 ML 166.67 MG IV ×2 (12:39→23:24)
[2022-01-01 15:45] VITALS: BP 117/67; PULSE 84; RESP 19; TEMP 36.2; O2SAT 93
[2022-01-01 20:00] VITALS: BP 135/61; PULSE 96; RESP 18; TEMP 36.4; O2SAT 96
[2022-01-01] MEDS: bisacodyL 5 MG TABLET.DR PO (20:42)
[2022-01-01] MEDS: Enoxaparin Sodium 40 MG/0.4 ML SYRINGE SUBCUT (20:43)
[2022-01-01 23:23] VITALS: BP 103/59; PULSE 87; RESP 19; TEMP 36.2; O2SAT 97
[2022-01-02] VITALS (7 sets, daily range): BP systolic 96–125; BP diastolic 50–76; PULSE 82–90; RESP 16–20; TEMP 35.7–36.2; O2SAT 96–97
--- NOTE | 2022-01-02 10:25 | P.PNIM_ITS ---
Subjective Subjective Date of Service: 01/02/22 Interval History: No seizures However, at one point, noted to have dried vomit on him when he wasn't being watched. Now hungry, taking purees Review of Systems Review of Systems: Yes Unobtainable due to mental status Physical Exam Vital Signs: Vital Signs: Last Vital Signs Temp 96.2 F L 01/02/22 08:54 Pulse 82 01/02/22 08:00 Resp 20 01/02/22 08:00 BP 122/76 01/02/22 08:00 Pulse Ox 97 01/02/22 08:00 BMI result Body Mass Index 21.2 Gen: in no acute distress, incomprehensible words HEENT: sclera anicteric, moist mucus membranes, edentulous Neck: supple Lungs: clear bilaterally Heart: regular, no murmurs Abd: soft, non-tender, non-distended Ext: no edema Skin: warm/well-perfused Neuro: alert, unable to assess orientation, follows commands and moves all 4 extremities Psych: impaired insight Objective Data Active Medications Acetaminophen (Acetaminophen 325 Mg Tablet) 650 mg PO Q6H PRN PRN Reason: Pain, Mild (Pain Scale 1-3) Al Hydroxide/Mg Hydroxide (Magnesium Hydrox/Alum Hydrox 30 Ml Oral.Susp) 30 ml PO Q4H PRN PRN Reason: Indigestion Aspirin (Aspirin 81 Mg Tab.Chew) 81 mg PO DAILY [facility] Last Admin: 01/01/22 08:13 Dose: 81 mg Documented by: CÉSAR Atorvastatin Calcium (Atorvastatin Calcium 20 Mg Tablet) 20 mg PO DAILY [facility] Last Admin: 01/01/22 08:13 Dose: 20 mg Documented by: CÉSAR Bisacodyl (Bisacodyl 10 Mg Supp.Rect) 10 mg [place] DAILY PRN PRN Reason: Constipation Bisacodyl (Bisacodyl 5 Mg Tablet.Dr) 5 mg PO Q2D@2100 [facility] Last Admin: 01/01/22 20:42 Dose: 5 mg Documented by: JASON Chlorpromazine HCl (Chlorpromazine Hcl 25 Mg Tablet) 25 mg PO BID [facility] Last Admin: 01/01/22 20:42 Dose: 25 mg Documented by: JASON Chlorpromazine HCl (Chlorpromazine Hcl 25 Mg Tablet) 50 mg PO BID [facility] Last Admin: 01/01/22 20:42 Dose: 50 mg Documented by: JASON Enoxaparin Sodium (Enoxaparin Sodium 40 Mg/0.4 Ml Syringe) 40 mg SUBCUT Q24H [facility] Last Admin: 01/01/22 20:43 Dose: 40 mg Documented by: JASON Gabapentin (Gabapentin 100 Mg Capsule) 100 mg PO BID [facility] Last Admin: 01/01/22 20:43 Dose: 100 mg Documented by: JASON Haloperidol Decanoate (Haloperidol Decanoate 50 Mg/Ml Ampul) 10 mg IM Q14D@1000 [facility] Ceftriaxone Sodium 1 gm/ (Sodium Chloride) 50 mls @ 100 mls/hr IV Q24H [facility] Last Infusion: 01/01/22 12:32 Dose: 0 mls/hr Documented by: CÉSAR Doxycycline Hyclate 100 mg/ (Sodium Chloride) 250 mls @ 166.67 mls/hr IV Q12H [facility] Last Infusion: 01/02/22 00:49 Dose: 0 mls/hr Documented by: EDMUNDO Ibuprofen (Ibuprofen 600 Mg Tablet) 600 mg PO Q6H PRN PRN Reason: Pain (Scale Score 4-6) Lactulose (Lactulose 20 Gm/30 Ml Solution) 20 gm PO BID [facility] Last Admin: 01/01/22 21:01 Dose: Not Given Documented by: JASON Non-Admin Reason: Patient Refused Levetiracetam (Levetiracetam 500 Mg Tablet) 500 mg PO BID [facility] Last Admin: 01/01/22 20:42 Dose: 500 mg Documented by: JASON Loperamide HCl (Loperamide Hcl 2 Mg Capsule) 2 mg PO Q8H PRN PRN Reason: Diarrhea Multivitamins/Vitamin C (Multivitamin Tablet) 1 tab PO DAILY [facility] Last Admin: 01/01/22 08:14 Dose: 1 tab Documented by: CÉSAR Omeprazole (Omeprazole 20 Mg Capsule.) 20 mg PO DAILY@0630 [facility] Last Admin: 01/02/22 05:41 Dose: Not Given Documented by: EDMUNDO Non-Admin Reason: Patient Refused Ondansetron HCl (Ondansetron Hcl 4 Mg/2 Ml Vial) 4 mg IVPUSH Q8H PRN PRN Reason: Nausea and Vomiting Propranolol HCl (Propranolol Hcl 20 Mg Tablet) 20 mg PO TID [facility]; Protocol Last Admin: 01/01/22 20:42 Dose: 20 mg Documented by: JASON Senna (Sennosides 8.6 Mg Tablet) 8.6 mg PO DAILY PRN PRN Reason: Constipation Senna/Docusate Sodium (Sennosides/Docusate Sodium Tablet) 2 tab PO BID [facility] Last Admin: 01/01/22 20:49 Dose: 2 tab Documented by: JASON Sodium Chloride (0.9 % Sodium Chloride Flush 3 Ml Syringe) 3 ml IVFLUSH QSHIFT [facility] Last Admin: 01/02/22 09:10 Dose: Not Given Documented by: ESTHER Non-Admin Reason: IV Running Labs CBC & Chem 7: 12/31/21 16:53 12/31/21 16:53 Labs: Laboratory Results - last 24 hr 01/01/22 10:15 Respiratory Panel Muniz See Note Adenovirus (Rapid PCR) Not Detected B.pert (TEM-PCR) Not Detected B.parapertussis DNA PCR Not Detected C. pneumoniae DNA (PCR) Not Detected Coronavirus OC43 (PCR) Not Detected Coronavirus HKU1 (PCR) Not Detected Coronavirus 229E (PCR) Not Detected Coronavirus NL63 (PCR) Not Detected Human Metapneumovir PCR Not Detected Influenza A (RT-PCR) Not Detected Influenza B (RT-PCR) Not Detected M. pneumoniae (PCR) Not Detected Parainfluenza 1 (PCR) Not Detected Parainfluenza 2 (PCR) Not Detected Parainfluenza 3 (PCR) Not Detected Parainfluenza 4 (PCR) Not Detected RSV (PCR) Not Detected Entero/Rhino (PCR) Not Detected SARS-CoV-2 RNA (RT-PCR) Not Detected Impressions Chest CT 01/01/22 09:31 IMPRESSION: Question small right lower lobe pneumonia. Atherosclerotic disease. Very full stomach question constipation. Fleischner guidelines were followed. EEG 01/01/22 This awake and drowsy electroencephalogram within normal limits. Microbiology Microbiology Results: Microbiology 12/31/21 16:53 Blood Culture - Preliminary Blood - Venous No growth after 24 hours. 12/31/21 16:53 Blood Culture - Preliminary Blood - Venous No growth after 24 hours. Assessment and Plan (1) New onset seizure: Status: Acute (2) Atrial fibrillation: Status: Acute Plan hospital d#4 81yo M LTC resident [@ [facility]] with TBI, schizophrenia, dementia, and hx prostate CA sent in after being found unresponsive, found to have new-onset AF [rate-controlled] and then had new-onset generalized tonic-clonic seizure, then developed hypothermia # hypothermia # RLL PNA - d#2 ceftriaxone + doxycycline, follow BCx. RVP negative, trend PCT # new-onset seizure - seizure precautions, levetiracetam, Neuro consulted # new-onset AF - rate controlled.? per discussion with PCP, only ASA for anticoagulation. # subclinical hypothyroidism vs. sick euthyroid syndrome - recheck TFTs in 6 mo # HLD - statin # schizophrenia - continue haloperidol decanoate, chlorpromazine # VTE ppx - LMWH In my clinical judgment, the patient requires continued hospitalization for the following reasons: hypothermia Quality Stroke Does the patient have a stroke diagnosis?: No VTE Prior VTE?: No VTE Risk Level:: Medical - moderate - high VTE Device Contraindication: N/A - Device Ordered VTE Drug Contraindication: N/A - Med Ordered
[2022-01-02] MEDS: cefTRIAXone sodium 1 GM in 0.9 % Sodium Chloride 50 ML IV (10:30)
[2022-01-02] MEDS: Lactulose 20 GM/30 ML SOLUTION PO ×2 (11:25→22:22)
[2022-01-02] MEDS: Aspirin 81 MG TAB.CHEW PO (11:25)
[2022-01-02] MEDS: levETIRAcetam 500 MG TABLET PO ×2 (11:25→22:19)
[2022-01-02] MEDS: Gabapentin 100 MG CAPSULE PO ×2 (11:25→22:19)
[2022-01-02] MEDS: chlorproMAZINE HCl 25 MG TABLET PO ×2 (11:25→22:22)
[2022-01-02] MEDS: chlorproMAZINE HCl 25 MG TABLET 50 MG PO ×2 (11:26→22:22)
[2022-01-02] MEDS: Propranolol HCL 20 MG TABLET PO ×2 (11:26→22:51)
[2022-01-02] MEDS: Sennosides/Docusate Sodium TABLET 2 TAB PO ×2 (11:27→22:19)
[2022-01-02] MEDS: Atorvastatin Calcium 20 MG TABLET PO (11:27)
[2022-01-02] MEDS: Multivitamin TABLET 1 TAB PO (11:27)
[2022-01-02] MEDS: Doxycycline Hyclate 100 MG in 0.9 % Sodium Chloride 250 ML 166.67 MG IV (11:28)
[2022-01-02] MEDS: 0.9 % Sodium Chloride Flush 3 ML SYRINGE IVFLUSH (22:19)
[2022-01-02] MEDS: Enoxaparin Sodium 40 MG/0.4 ML SYRINGE SUBCUT (22:19)
[2022-01-03] MEDS: Doxycycline Hyclate 100 MG in 0.9 % Sodium Chloride 250 ML 166.67 MG IV ×2 (00:23→15:01)
[2022-01-03 04:00] VITALS: BP 101/57; PULSE 83; RESP 19; TEMP 36.2; O2SAT 98
[2022-01-03 07:02] LABS: Hematocrit 40.2 % (42.0-52.0); Hemoglobin 13.1 g/dl (14.0-18.0); Mean Corpuscular HGB Conc 32.6 g/dl (31.0-36.0); Mean Corpuscular Volume 88.9 fL (80.0-98.0); Platelet Count 212 X10*3/uL (160-400); Red Blood Count 4.52 X10*6/uL (4.60-5.80); Red Cell Distribution Width 15.6 % (11.0-16.0); White Blood Count 6.3 X10*3/uL (4.8-10.8)
[2022-01-03 07:25] LABS: Anion Gap 13 (12-20); Blood Urea Nitrogen 20 mg/dL (9-16); Calcium 9.1 mg/dL (8.4-10.2); Carbon Dioxide 22 mmol/L (22-29); Chloride 111 mmol/L (96-108); Estimated Glomerular Filt Rate > 60; Glucose Random 65 mg/dL (60-115); Potassium 4.6 mmol/L (3.3-5.1); Sodium 141 mmol/L (135-145)
[2022-01-03 07:47] VITALS: BP 124/69; PULSE 80; RESP 20; TEMP 36.3; O2SAT 97
[2022-01-03 08:18] LABS: Procalcitonin 0.03 ng/mL
[2022-01-03] MEDS: levETIRAcetam 500 MG TABLET PO ×2 (10:38→19:59)
[2022-01-03] MEDS: chlorproMAZINE HCl 25 MG TABLET PO ×2 (10:38→19:59)
--- NOTE | 2022-01-03 10:38 | P.PNIM_ITS ---
Subjective Subjective Date of Service: 01/03/22 Interval History: Hypothermia resolved x24h Taking purees No seizures Review of Systems Review of Systems: Yes Unobtainable due to mental status Physical Exam Vital Signs: Vital Signs: Last Vital Signs Temp 97.3 F 01/03/22 07:47 Pulse 80 01/03/22 07:47 Resp 20 01/03/22 07:47 BP 124/69 01/03/22 07:47 Pulse Ox 97 01/03/22 07:47 BMI result Body Mass Index 21.2 Gen: in no acute distress, incomprehensible words HEENT: sclera anicteric, moist mucus membranes, edentulous Neck: supple Lungs: clear bilaterally Heart: regular, no murmurs Abd: soft, non-tender, non-distended Ext: no edema Skin: warm/well-perfused Neuro: alert, unable to assess orientation, follows commands and moves all 4 extremities Psych: impaired insight Objective Data Active Medications Acetaminophen (Acetaminophen 325 Mg Tablet) 650 mg PO Q6H PRN PRN Reason: Pain, Mild (Pain Scale 1-3) Al Hydroxide/Mg Hydroxide (Magnesium Hydrox/Alum Hydrox 30 Ml Oral.Susp) 30 ml PO Q4H PRN PRN Reason: Indigestion Aspirin (Aspirin 81 Mg Tab.Chew) 81 mg PO DAILY [facility] Last Admin: 01/02/22 11:25 Dose: 81 mg Documented by: ESTHER Atorvastatin Calcium (Atorvastatin Calcium 20 Mg Tablet) 20 mg PO DAILY [facility] Last Admin: 01/02/22 11:27 Dose: 20 mg Documented by: ESTHER Bisacodyl (Bisacodyl 10 Mg Supp.Rect) 10 mg [place] DAILY PRN PRN Reason: Constipation Bisacodyl (Bisacodyl 5 Mg Tablet.Dr) 5 mg PO Q2D@2100 [facility] Last Admin: 01/01/22 20:42 Dose: 5 mg Documented by: JASON Chlorpromazine HCl (Chlorpromazine Hcl 25 Mg Tablet) 25 mg PO BID [facility] Last Admin: 01/02/22 22:22 Dose: 25 mg Documented by: AMANUEL Chlorpromazine HCl (Chlorpromazine Hcl 25 Mg Tablet) 50 mg PO BID [facility] Last Admin: 01/02/22 22:22 Dose: 50 mg Documented by: AMANUEL Enoxaparin Sodium (Enoxaparin Sodium 40 Mg/0.4 Ml Syringe) 40 mg SUBCUT Q24H [facility] Last Admin: 01/02/22 22:19 Dose: 40 mg Documented by: AMANUEL Gabapentin (Gabapentin 100 Mg Capsule) 100 mg PO BID [facility] Last Admin: 01/02/22 22:19 Dose: 100 mg Documented by: AMANUEL Haloperidol Decanoate (Haloperidol Decanoate 50 Mg/Ml Ampul) 10 mg IM Q14D@1000 [facility] Ceftriaxone Sodium 1 gm/ (Sodium Chloride) 50 mls @ 100 mls/hr IV Q24H [facility] Last Infusion: 01/02/22 11:31 Dose: 0 mls/hr Documented by: ESTHER Doxycycline Hyclate 100 mg/ (Sodium Chloride) 250 mls @ 166.67 mls/hr IV Q12H [facility] Last Infusion: 01/03/22 04:10 Dose: 0 mls/hr Documented by: VICTORIANO Ibuprofen (Ibuprofen 600 Mg Tablet) 600 mg PO Q6H PRN PRN Reason: Pain (Scale Score 4-6) Lactulose (Lactulose 20 Gm/30 Ml Solution) 20 gm PO BID [facility] Last Admin: 01/02/22 22:22 Dose: 20 gm Documented by: AMANUEL Levetiracetam (Levetiracetam 500 Mg Tablet) 500 mg PO BID [facility] Last Admin: 01/02/22 22:19 Dose: 500 mg Documented by: AMANUEL Loperamide HCl (Loperamide Hcl 2 Mg Capsule) 2 mg PO Q8H PRN PRN Reason: Diarrhea Multivitamins/Vitamin C (Multivitamin Tablet) 1 tab PO DAILY [facility] Last Admin: 01/02/22 11:27 Dose: 1 tab Documented by: ESTHER Omeprazole (Omeprazole 20 Mg Capsule.Dr) 20 mg PO DAILY@0630 [facility] Last Admin: 01/03/22 05:47 Dose: Not Given Documented by: VICTORIANO Non-Admin Reason: Patient Refused Ondansetron HCl (Ondansetron Hcl 4 Mg/2 Ml Vial) 4 mg IVPUSH Q8H PRN PRN Reason: Nausea and Vomiting Propranolol HCl (Propranolol Hcl 20 Mg Tablet) 20 mg PO TID [facility]; Protocol Last Admin: 01/02/22 22:51 Dose: 20 mg Documented by: HO.NAUMOC Senna (Sennosides 8.6 Mg Tablet) 8.6 mg PO DAILY PRN PRN Reason: Constipation Senna/Docusate Sodium (Sennosides/Docusate Sodium Tablet) 2 tab PO BID [facility] Last Admin: 01/02/22 22:19 Dose: 2 tab Documented by: AMANUEL Sodium Chloride (0.9 % Sodium Chloride Flush 3 Ml Syringe) 3 ml IVFLUSH QSHIFT [facility] Last Admin: 01/02/22 22:19 Dose: 3 ml Documented by: AMANUEL Labs CBC & Chem 7: 01/03/22 06:15 01/03/22 06:15 Labs: Laboratory Results - last 24 hr 01/03/22 01/03/22 01/03/22 06:15 06:15 06:15 MCV 88.9 MCH 29.0 MCHC 32.6 RDW 15.6 Plt Count 212 MPV 11.0 Absolute Nucleated RBC 0.000 Nucleated RBC % (auto) 0.0 Anion Gap 13 Estim Creat Clear Calc 60.0 Estimated GFR > 60 Random Glucose 65 Calcium 9.1 Procalcitonin 0.03 Microbiology Microbiology Results: Microbiology 12/31/21 16:53 Blood Culture - Preliminary Blood - Venous No growth after 48 hours. 12/31/21 16:53 Blood Culture - Preliminary Blood - Venous No growth after 48 hours. Assessment and Plan (1) New onset seizure: Status: Acute (2) Atrial fibrillation: Status: Acute Plan hospital d#5 81yo M LTC resident [@ [facility]] with TBI, schizophrenia, dementia, and hx prostate CA sent in after being found unresponsive, found to have new-onset AF [rate-controlled] and then had new-onset generalized tonic-clonic seizure, then developed hypothermia # hypothermia # RLL PNA - d#3 ceftriaxone + doxycycline, follow BCx. RVP negative, PCT low # new-onset seizure - seizure precautions, levetiracetam, Neuro consulted # new-onset AF - rate controlled.? per discussion with PCP, only ASA for anticoagulation. # subclinical hypothyroidism vs. 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
[2022-01-03] MEDS: chlorproMAZINE HCl 25 MG TABLET 50 MG PO ×2 (10:40→19:59)
[2022-01-03] MEDS: Propranolol HCL 20 MG TABLET PO ×3 (10:42→19:59)
[2022-01-03] MEDS: Atorvastatin Calcium 20 MG TABLET PO (10:43)
[2022-01-03] MEDS: Aspirin 81 MG TAB.CHEW PO (10:43)
[2022-01-03] MEDS: Gabapentin 100 MG CAPSULE PO ×2 (10:43→19:59)
[2022-01-03] MEDS: Sennosides/Docusate Sodium TABLET 2 TAB PO ×2 (10:43→19:59)
[2022-01-03] MEDS: Multivitamin TABLET 1 TAB PO (10:43)
[2022-01-03] MEDS: Lactulose 20 GM/30 ML SOLUTION PO ×2 (10:45→19:59)
[2022-01-03] MEDS: cefTRIAXone sodium 1 GM in 0.9 % Sodium Chloride 50 ML IV (10:50)
[2022-01-03] MEDS: 0.9 % Sodium Chloride Flush 3 ML SYRINGE IVFLUSH ×3 (10:57→20:00)
[2022-01-03 11:27] VITALS: BP 100/73; PULSE 81; RESP 20; TEMP 36.2; O2SAT 95
[2022-01-03 16:00] VITALS: BP 100/54; PULSE 73; RESP 16; TEMP 36.1; O2SAT 94
[2022-01-03] MEDS: bisacodyL 5 MG TABLET.DR PO (19:59)
[2022-01-03] MEDS: Enoxaparin Sodium 40 MG/0.4 ML SYRINGE SUBCUT (19:59)
[2022-01-03 20:00] VITALS: BP 110/60; PULSE 71; RESP 18; TEMP 36; O2SAT 96
[2022-01-03 23:39] VITALS: BP 101/59; PULSE 72; RESP 20; TEMP 37; O2SAT 96
[2022-01-04] MEDS: Doxycycline Hyclate 100 MG in 0.9 % Sodium Chloride 250 ML 166.67 MG IV (00:38)
[2022-01-04] MEDS: LORazepam 2 MG/ML VIAL 1 MG IVPUSH (00:50)
[2022-01-04] MEDS: 0.9 % Sodium Chloride Flush 3 ML SYRINGE IVFLUSH (07:20)
[2022-01-04] MEDS: Propranolol HCL 20 MG TABLET PO (08:27)
[2022-01-04] MEDS: chlorproMAZINE HCl 25 MG TABLET PO (08:27)
[2022-01-04] MEDS: chlorproMAZINE HCl 25 MG TABLET 50 MG PO (08:27)
[2022-01-04] MEDS: Sennosides/Docusate Sodium TABLET 2 TAB PO (08:28)
[2022-01-04] MEDS: Gabapentin 100 MG CAPSULE PO (08:28)
[2022-01-04] MEDS: Aspirin 81 MG TAB.CHEW PO (08:28)
[2022-01-04] MEDS: Multivitamin TABLET 1 TAB PO (08:28)
[2022-01-04] MEDS: Atorvastatin Calcium 20 MG TABLET PO (08:28)
[2022-01-04] MEDS: Lactulose 20 GM/30 ML SOLUTION PO (08:28)
[2022-01-04] MEDS: levETIRAcetam 500 MG TABLET PO (08:28)
--- NOTE | 2022-01-04 10:46 | PM.DS ---
DS: Providers Provider Date of Service: 01/04/22 Date of admission: 12/30/21 17:34 Date of discharge: 01/04/22 Primary care physician: Norris Muñoz DO Consults: 12/30/21 16:42 Consult to Neurology Routine Consulting Provider: [facility] Reason for consultation: new sz 12/30/21 16:44 Consult to Cardiology Routine Consulting Provider: Dennys Vidales Reason for consultation: new onset AF 12/31/21 11:17 Consult for Sitter Routine Reason for consultation: climbing out of bed 01/02/22 10:25 Consult for Sitter Routine Reason for consultation: saftey risk DS: Diagnosis Discharge Diagnosis (1) New onset seizure: Status: Acute (2) Atrial fibrillation: Status: Acute (3) Hypothermia: Status: Acute (4) Pneumonia: Status: Acute DS: Summary Hospital Course Hospital Course: From my admission H+P, 12/30/21: 81yo M long-term resident of [facility] with TBI, schizophrenia, dementia, and hx prostate CA sent in today from [facility] after being found unresponsive this morning.? Upon EMS arrival, he was awake and alert and at his baseline mental status.? In the ED, he was found to have lactic acidosis and new-onset AF with controlled ventricular rate.? After discussion with his primary care doctor at [facility], he was sent back with plan for aspirin rather than full-dose anticoagulation.? However, upon arrival there, he had a witnessed 5-minute tonic-clonic seizure and was postictal afterwards.? He has no history of prior seizures.? He was brought back to the ED, where he was given 1.5g of IV levetiracetam.? He is awake and alert and answers questions but not coherently.? Unable to obtain ROS due to his mental status, but there is no reported fever. He was admitted to the [facility] in normal sinus rhythm. Per discussion with his physician at [facility], he was placed on aspirin alone for anticoagulation. He did not require a rate control agent. Neurology was consulted. He was started on levetiracetam. He did not have any further seizures. He developed hypothermia on 12/31/21 and workup revealed RLL pneumonia. He was treated with ceftriaxone and doxycycline. Blood cultures were negative. Respiratory virus panel was negative. He was not hypoxic. With antibiotic treatment, he became normothermic. He was discharged back to [facility] on 5 more days of doxycycline plus cefdinir, along with the chronic medications levetiracetam and aspirin. Status at Discharge Functional status at discharge: bed bound Time Spent with Patient Time attestation: Total time spent providing and/or coordinating discharge services: 40 Discharge coordination time: Greater than 30 minutes Quality: Safe Use of Opioids Does Pt have an Active Cancer Diagnosis on the Problem List?: Yes Opioid Measure Date for [facility] Report: 12/05/[address] [facility] Report: 10:48 Quality: Stroke Does the patient have a stroke diagnosis?: No Physical Exam Vital Signs: Vital Signs: Last Vital Signs Temp 98.6 F 01/03/22 23:39 Pulse 72 01/03/22 23:39 Resp 20 01/03/22 23:39 BP 101/59 L 01/03/22 23:39 Pulse Ox 96 01/03/22 23:39 BMI result Body Mass Index 21.2 Gen: in no acute distress, incomprehensible words HEENT: sclera anicteric, moist mucus membranes, edentulous Neck: supple Lungs: clear bilaterally Heart: regular, no murmurs Abd: soft, non-tender, non-distended Ext: no edema Skin: warm/well-perfused Neuro: alert, unable to assess orientation, follows commands and moves all 4 extremities Psych: impaired insight DS: Data Data Completed and Pending Completed studies during hospitalization [Text1]: Laboratory Results WBC 6.3 X10*3/uL (4.8-10.8) 01/03/22 06:15 RBC 4.52 X10*6/uL (4.60-5.80) L 01/03/22 06:15 Hgb 13.1 g/dl (14.0-18.0) L 01/03/22 06:15 Hct 40.2 % (42.0-52.0) L 01/03/22 06:15 MCV 88.9 fL (80.0-98.0) 01/03/22 06:15 MCH 29.0 pg (27.0-33.0) 01/03/22 06:15 MCHC 32.6 g/dl (31.0-36.0) 01/03/22 06:15 RDW 15.6 % (11.0-16.0) 01/03/22 06:15 Plt Count 212 X10*3/uL (160-400) 01/03/22 06:15 MPV 11.0 fL (9.4-12.4) 01/03/22 06:15 Absolute Nucleated RBC 0.000 X10*3/uL (0.0-0.012) 01/03/22 06:15 Nucleated RBC % (auto) 0.0 /100WBC (0.0-0.2) 01/03/22 06:15 Sodium 141 mmol/L (135-145) 01/03/22 06:15 Potassium 4.6 mmol/L (3.3-5.1) 01/03/22 06:15 Chloride 111 mmol/L (96-108) H 01/03/22 06:15 Carbon Dioxide 22 mmol/L (22-29) 01/03/22 06:15 Anion Gap 13 (12-20) 01/03/22 06:15 BUN 20 mg/dL (9-16) H 01/03/22 06:15 Creatinine 0.91 mg/dL (0.5-1.4) 01/03/22 06:15 Estim Creat Clear Calc 60.0 01/03/22 06:15 Estimated GFR > 60 01/03/22 06:15 Random Glucose 65 mg/dL (60-115) 01/03/22 06:15 Calcium 9.1 mg/dL (8.4-10.2) 01/03/22 06:15 Total Bilirubin 0.3 mg/dL (0.0-1.0) 12/31/21 16:53 AST 23 U/L (5-37) 12/31/21 16:53 ALT 18 U/L (0-40) 12/31/21 16:53 Alkaline Phosphatase 136 U/L (39-117) H 12/31/21 16:53 C-Reactive Protein 4.53 mg/dL (< or = 0.50) H 12/31/21 16:53 Total Protein 6.0 g/dL (6.5-8.0) L 12/31/21 16:53 Albumin 3.4 g/dL (3.5-5.0) L 12/31/21 16:53 Procalcitonin 0.03 ng/mL 01/03/22 06:15 Random Cortisol 10.1 ug/dL 01/01/22 08:38 Respiratory Panel Muniz See Note 01/01/22 10:15 Adenovirus (Rapid PCR) Not Detected (Not Detect.) 01/01/22 10:15 B.pert (TEM-PCR) Not Detected (Not Detect.) 01/01/22 10:15 B.parapertussis DNA PCR Not Detected (Not Detect.) 01/01/22 10:15 C. pneumoniae DNA (PCR) Not Detected (Not Detect.) 01/01/22 10:15 Coronavirus OC43 (PCR) Not Detected (Not Detect.) 01/01/22 10:15 Coronavirus HKU1 (PCR) Not Detected (Not Detect.) 01/01/22 10:15 Coronavirus 229E (PCR) Not Detected (Not Detect.) 01/01/22 10:15 Coronavirus NL63 (PCR) Not Detected (Not Detect.) 01/01/22 10:15 Human Metapneumovir PCR Not Detected (Not Detect.) 01/01/22 10:15 Influenza A (RT-PCR) Not Detected (Not Detect.) 01/01/22 10:15 Influenza B (RT-PCR) Not Detected (Not Detect.) 01/01/22 10:15 M. pneumoniae (PCR) Not Detected (Not Detect.) 01/01/22 10:15 Parainfluenza 1 (PCR) Not Detected (Not Detect.) 01/01/22 10:15 Parainfluenza 2 (PCR) Not Detected (Not Detect.) 01/01/22 10:15 Parainfluenza 3 (PCR) Not Detected (Not Detect.) 01/01/22 10:15 Parainfluenza 4 (PCR) Not Detected (Not Detect.) 01/01/22 10:15 RSV (PCR) Not Detected (Not Detect.) 01/01/22 10:15 Entero/Rhino (PCR) Not Detected (Not Detect.) 01/01/22 10:15 SARS-CoV-2 RNA (RT-PCR) Not Detected (Not Detect.) 01/01/22 10:15 Impressions Chest X-Ray 12/31/21 16:29 IMPRESSION: Worsening pulmonary aeration in the retrocardiac region/left lower lobe which could potentially be related with patient's rotation. Other differentials include worsening atelectasis, aspiration or developing pneumonia in the appropriate clinical context. Query a trace amount of left-sided pleural fluid. Head CT 12/31/21 17:16 IMPRESSION: No evidence of acute intracranial hemorrhage or edematous territorial infarction. Chest CT 01/01/22 09:31 IMPRESSION: Question small right lower lobe pneumonia. Atherosclerotic disease. Very full stomach question constipation. Fleischner guidelines were followed. TTE 12/31/21 - The left ventricular systolic function is normal.? The visually estimated ejection fraction is between 55-60%. ? - There is mild calcification of the aortic valve. ? - There is mild mitral annular calcification.? - No obvious valvular pathology seen on this study.? EEG 01/01/22 This awake and drowsy electroencephalogram within normal limits. Discharge Plan Discharge Patient Disposition: [facility] Discharge Diagnosis: new-onset atrial fibrillation new-onset seizures pneumonia Referrals: Norris Muñoz DO [Primary Care Provider] - 1 Week Discharge Medications: New levetiracetam 500 mg Tablet 500 mg PO BID Qty: 60 0RF aspirin 81 mg Tablet,Chewable 81 mg PO DAILY Qty: 30 0RF doxycycline monohydrate 100 mg tablet 100 mg PO BID Qty: 10 0RF cefdinir 300 mg capsule 300 mg PO BID Qty: 10 0RF Continued acetaminophen 325 mg Tablet 650 mg PO Q4H PRN (Reason: PAIN/TEMP) 0RF atorvastatin 20 mg Tablet 20 mg PO DAILY 0RF bisacodyl 10 mg Suppository 10 mg UT DAILY PRN (Reason: Constipation) 0RF chlorpromazine 25 mg Tablet 25 mg PO BID 0RF Rx Instructions: TAKE TOGETHER WITH 50 MG DOSE FOR TOTAL DOSE OF 75 MG BID chlorpromazine 50 mg Tablet 50 mg PO BID 0RF Rx Instructions: TAKE TOGETHER WITH 25 MG DOSE, TO MAKE TOTAL DOSE OF 75 MG gabapentin 100 mg Capsule 100 mg PO BID 0RF haloperidol decanoate [Haldol Decanoate] 50 mg/mL Solution 10 mg IM Q14D 0RF ibuprofen 600 mg Tablet 600 mg PO Q6H PRN (Reason: Pain (Scale Score 4-6)) 0RF lactulose 10 gram/15 mL Solution 20 g PO BID 0RF loperamide 2 mg Capsule 2 mg PO Q8H PRN (Reason: Diarrhea) 0RF metoclopramide HCl 5 mg Tablet 5 mg PO BID 0RF Minerin Creme Cream 1 appl TOPICAL DAILY PRN (Reason: Dry Skin) 0RF Protocol: Apply to: Apply to: BILATERAL LOWER EXTREMETIES esomeprazole magnesium [Nexium] 40 mg Capsule,Delayed Release(Dr/Ec) 40 mg PO BID 0RF ondansetron 4 mg Tablet,Disintegrating 4 mg PO Q4H PRN (Reason: Nausea And Vomiting) 0RF multivitamin Tablet 1 tab PO DAILY 0RF propranolol 20 mg Tablet 20 mg PO TID 0RF alum-mag hydroxide-simeth 200-200-20 mg/5 mL Suspension 30 ml PO Q4H PRN (Reason: Indigestion) 0RF Rx Instructions: administer between meals and at bedtime sennosides [senna] 8.6 mg Tablet 8.6 mg PO DAILY PRN (Reason: Constipation) 0RF sennosides-docusate sodium [Senna Plus] 8.6-50 mg Tablet 2 tab-cap PO BID 0RF bisacodyl 5 mg Tablet 5 mg PO Q2D@2100 0RF levothyroxine 50 mcg Tablet 50 mcg PO DAILY@0600 0RF tamsulosin 0.4 mg Capsule 0.4 mg PO DAILY 0RF tramadol 50 mg Tablet 50 mg PO BID 0RF tramadol 50 mg Tablet 50 mg PO Q8H PRN (Reason: Pain (Scale Score 4-6)) 0RF Rx Instructions: GIVE 8 HOURS APART FROM SCHEDULED DOSE Discharge Orders: Discharge Order (Routine); Ordered 01/04/22 Ordered By: Jackie Reynaga Diet: other Activity on Discharge: As tolerated Stand Alone Forms: Patient Portal Discharge page Activity Restrictions/Additional Instructions: Pureed diet [NDD1] [place]-thick liquids Care Plan Goals: Normothermia. Recovery from pneumonia. Prevention of cardiomyopathy and strokes Prevention of seizures. Health Concerns: new-onset atrial fibrillation new-onset seizures pneumonia Plan of Treatment: aspirin 81 mg daily levetiracetam 500 mg twice daily cefdinir 300 mg twice daily PLUS doxycycline 100 mg twice daily for 5 days Assessment: see Discharge Summary Patient Instructions: New-Onset Seizure in Adults (DC)
--- NOTE | 2022-01-04 11:18 | MHC.CM.PN ---
pt dcd back to [facility] today at 130 guardian notifiedf
[2022-01-04 11:42] LABS: COVID-19 Test Invalid (Negative)
--- NOTE | 2022-01-04 12:02 | MHC.CM.PN ---
imm updated unable to reach guardian mail box is full pari espinoza [address] [place] [phone] sent certified maill see imm addendum.. called sister lolis zarate [phone] call did not connect
[2022-01-04 12:50] LABS: COVID-19 Test Invalid (Negative)
--- NOTE | 2022-01-04 13:56 | MHC.SL.SWA ---
Speech Pathologist Impression: Oropharyngeal dysphagia Risk of Aspiration Due to: Neurological Condition History of Pneumonia Reduced Cognition Dysphasia Diet Status: Upgrade Liquid Consistency and Strategies for Safe Swallow: Liquid Intake Recommendation: Thin Liquid Intake Strategies: Small Sips No Straws Solid Food Consistency: Dietary Recommendations: Grnd/Mech Altered (NDD2) Additional Modifications to Solid Foods: Recommend UPGRADE to GROUND/MECH ALTERED (NDD2) solids with sauce/gravy and THIN liquids by teaspoon, pills CRUSHED in PUREE. Patient requires total 1:1 assistance and aspiration precautions. Diet order updated by BARREL LINE OPERATOR- MD, RN, RD notified of change via Degreed Message. BARREL LINE OPERATOR to f/u tomorrow. Oral Medication Intake: Crushed with Puree Please contact the pharmacy regarding appropriate crushable or liquid drug formulations that are available whenever modified delivery is recommended. Compensatory Strategies and Precautions to be Taken for Safe Swallow: Sitting Upright (90 deg) Liquids from Spoon Small Bites and Sips Alternate Liquids/Solids Rate of Ingestion Change Oral Check Supervision While Eating and Drinking for Safe Swallow: Total Assistance (1:1) Swallowing Recommended Treatments: Compens. Strategy Educat. Recommendation for Speech: Inpatient Speech Therapy Maintenance Director Clinican/Clinical Fellow: No Supervisory Statement: I have reviewed and agree with the student/clinical fellow's documentation: N/A Speech Language Pathologist: Halle Mccarthy M.A., [facility]BARREL LINE OPERATOR
--- NOTE | 2022-01-04 14:01 | MHC.SLORD ---
Speech Language Pathology Order Status: CERTIFIED OPHTHALMIC TECHNOLOGIST called to update Pauly Linares from [facility] RE: BDE.
[2022-01-04 14:02] LABS: Influenza A PCR NEGATIVE (Negative); Influenza B PCR NEGATIVE (Negative); Resp Syncy Virus RNA Qual PCR NEGATIVE (Negative); SARS COV2 PCR INHOUSE NEGATIVE (Negative)
== END 2022-01-04 14:42 | disposition skilled nursing facility (03) | DRG 100 ==
LOC: HO.ED 16:14 → HO.EDOVER 17:48 → HO.IMC 12-31 07:33
PROVIDERS: Admitting Provider Family Medicine; Emergency Provider Emergency Medicine; PCP Hospitalist; Visit Provider Family Medicine
DX: G40.89 Other seizures (principal); J18.9 Pneumonia, unspecified organism; E87.2 Acidosis; I48.91 Unspecified atrial fibrillation; E78.5 Hyperlipidemia, unspecified; F20.9 Schizophrenia, unspecified; E07.81 Sick-euthyroid syndrome; F03.90 Unspecified dementia, unspecified severity, without behavioral disturbance, psychotic disturbance, mood disturbance, and anxiety; R68.0 Hypothermia, not associated with low environmental temperature; Z87.820 Personal history of traumatic brain injury; Z20.822 Contact with and (suspected) exposure to COVID-19; Z85.46 Personal history of malignant neoplasm of prostate; Z79.82 Long term (current) use of aspirin; Z79.890 Hormone replacement therapy; Z79.891 Long term (current) use of opiate analgesic; Z79.899 Other long term (current) drug therapy
CPT/HCPCS: 0241U; 36415; 51701; 70450; 71045; 71250; 80048; 80053; 80076; 81003; 82140; 82533; 83605; 83735; 83880; 84145; 84439; 84443; 84484; 85025; 85027; 85610; 86140; 87040; 87633; 87635; 92610; 93005; 93306; 95816; 96360; 96374; 99284; 99285; J0696; J1650; J1953; J2060

== ENCOUNTER → 2022-01-22 13:41 | Outpatient (BNVA) | payer MEDICARE, MEDICAID, SELFPAY | PROVIDERS: PCP Hospitalist; Visit Provider Urology | DX: N40.1 Benign prostatic hyperplasia with lower urinary tract symptoms (principal); R39.15 Urgency of urination; R35.0 Frequency of micturition | CPT/HCPCS: Q3014 ==

== ENCOUNTER 2022-02-06 16:32 | Inpatient (IN) | payer MEDICARE, MEDICAID, SELFPAY ==
[2022-02-06] VITALS (7 sets, daily range): BP systolic 119–150; BP diastolic 69–88; PULSE 92–120; RESP 16–22; TEMP 33.9–36.7; O2SAT 93–96; BMI 24.4
--- NOTE | ~2022-02-06 | XR_ITS ---
EXAMINATION: XR CHEST CLINICAL INFORMATION: Short of breath. Question aspiration. COMPARISON: Chest 12/31/2021 TECHNIQUE: Frontal view of the chest was obtained. FINDINGS: The lungs are hypoexpanded with increased bilateral parahilar interstitial markings with bronchial wall thickening in both upper and lower lobes suggestive of small airway disease. In addition there is lower lobe bronchiectasis. There is patchy opacity in the right parahilar region suggestive of bronchopneumonia. No walt consolidation or pleural effusion seen. Heart size is enlarged. The aorta is ectatic. No gross bony abnormality XR/XR chest 1V IMPRESSION: Findings suggestive of bronchitis/small airway disease. Patchy opacity in the right parahilar middle lobe question bronchopneumonia.
--- NOTE | ~2022-02-06 | CT_ITS ---
EXAMINATION: CT ANGIOGRAM ABDOMEN AND PELVIS CLINICAL INFORMATION: Pneumatosis with elevated lactic acid, question ischemia COMPARISON: Noncontrast CT abdomen/pelvis 02/06/2022 TECHNIQUE: Multiple axial images were obtained through the abdomen and pelvis following the administration of 80 mL of Omnipaque 350 intravenous contrast delayed images were also obtained. Coronal and sagittal reformatted images were created along with MIP images. This CT examination was performed using dose optimization techniques as appropriate, variously including the following: *Automated exposure control *Adjustment of mA and/or kV according to patient size (this includes techniques or standardized protocols for targeted exams where dose is matched to indication/reason for exam; i.e. extremities or head) *Use of iterative reconstruction technique DLP: 1307 mGy-cm FINDINGS: Heterogeneous bibasilar dependent opacities noted. The liver is homogeneous in attenuation without intrahepatic biliary ductal dilatation. The gallbladder is unremarkable. The spleen and pancreas appear unremarkable. There is a nodular density along the right adrenal gland which appears increased in size from yesterday's exam, now approximately 3.1 x 1.4 cm with surrounding stranding. Given the short-term change, this is suspicious for hematoma. Left adrenal gland appears mildly prominent with adjacent stranding, similar to prior. Bilateral nephrograms are symmetric. No hydronephrosis. A few scattered small hypoattenuating renal foci favor cysts; no follow-up recommended. No obstructing renal or ureteral calculi are present. The urinary bladder is decompressed with a Luevano catheter. The prostate and seminal vesicles are unremarkable. Redemonstrated large volume of stool in the rectum with associated wall thickening, suspicious for stercoral colitis. Moderate to large amount of stool is also present in the remainder of the colon. Scattered colonic diverticulosis is seen without diverticulitis. No convincing pneumatosis is seen, with multiple foci of gas along the periphery of the colon favored to be intraluminal. Additionally, no gas is seen in the portal venous system. Appendix appears nondilated. No free fluid or free air is identified. There is extensive atherosclerotic calcification along the aorta, without aneurysmal dilation. Focal penetrating atherosclerotic ulcer is suspected along the right lateral margin of the infrarenal aorta. There is moderate narrowing at the celiac axis. No significant narrowing at the SMA origin, and distal branches also appear opacified. Replaced common hepatic artery noted off the SMA. Moderate to severe stenosis noted at the left renal artery origin. Mild stenosis of the right renal artery origin. The inferior mesenteric artery appears patent with narrowing at the origin. Moderate narrowing of the proximal left common iliac artery. No retroperitoneal or pelvic lymphadenopathy is seen. Degenerative changes are noted most prominently in the lumbar spine. Partially visualized left femoral hardware. CT/CT angio abdomen pelvis IMPRESSION: 1. Redemonstrated large volume of stool in the rectum with associated wall thickening, suspicious for stercoral colitis. 2. No convincing pneumatosis. Colonic diverticulosis. Moderate to large volume of stool throughout the colon. 3. Nodular density along the right adrenal gland appears increased in size from recent prior exam, suspicious for hematoma. Attention on follow-up is recommended. 4. Extensive atherosclerotic calcification of the aorta, with additional vascular findings detailed above. Penetrating atherosclerotic ulcer suspected in the infrarenal aorta.
--- NOTE | ~2022-02-06 | CT_ITS ---
EXAMINATION: CT abdomen pelvis wo con CLINICAL INFORMATION: Reason for Exam elevated lactic acid etiology? COMPARISON: Prior CT October 2016. TECHNIQUE: Multidetector volumetric imaging was performed from the superior aspect of the liver through the pubic symphysis a noncontrasted study. Sagittal and coronal reformatted images were obtained on the technologist's workstation. This CT examination was performed using dose optimization techniques as appropriate, variously including the following: *Automated exposure control *Adjustment of mA and/or kV according to patient size (this includes techniques or standardized protocols for targeted exams where dose is matched to indication/reason for exam; i.e. extremities or head) *Use of iterative reconstruction technique DLP: 745 mGy-cm FINDINGS: LOWER THORAX: There are bibasilar infiltrates especially right lower lobe likely pneumonia. HEPATOBILIARY: Evaluation of the liver limited on noncontrasted study otherwise unremarkable. GALLBLADDER: Gallbladder unremarkable. SPLEEN: Spleen is normal in size. PANCREAS: Small atrophic pancreas. STOMACH AND GASTROINTESTINAL TRACT: Stomach is grossly unremarkable. Dilated stool-filled colon suggesting most likely constipation, excessive amount of stool in the rectum probably fecal impaction. There is air within the wall of the colon suggesting pneumatosis, nonspecific CT findings, however this has been described in association with possible many entities including bowel ischemia. ADRENALS: No adrenal nodules. KIDNEYS/URETERS: Evaluation of the kidneys is limited due to lack of contrast, there are bilateral cortical hypodensities not well characterized on this CT scan could be evolving cysts. No kidney stone or hydronephrosis. URINARY BLADDER: There is a Luevano catheter in the urinary bladder which is decompressed, not well evaluated, air within the lumen of the bladder probably due to instrumentation. PELVIC VISCERA: Unremarkable PERITONEUM: No free air or fluid. LYMPH NODES: No lymphadenopathy. VASCULAR:Heavy aortic vascular calcifications, no aneurysm. BONES, ABDOMINAL WALL AND SOFT TISSUES: Spondylosis of thoracolumbar spine. Left femur ORIF prosthesis hardware partially included. CT/CT abdomen pelvis wo con IMPRESSION: *Excessive amount of stool in the colon suggesting constipation, especially the rectum probably fecal impaction. * There is air within the lumen of the colon wall suggesting pneumatosis coli, nonspecific CT finding, CANNOT ENTIRELY RULE OUT THE POSSIBILITY OF ISCHEMIA. May consider correlation with follow-up CT angiogram. *Airspace opacification infiltrate presumably pneumonia at lower lobes. *Other noncritical findings described above unchanged. (Referring physician staff is being called, to be alerted of the above findings and recommendations.) SM
--- NOTE | 2022-02-06 16:36 | ED_ITS ---
HPI - Skin/Abscess/Foreign Bdy General Chief complaint: General Medical Stated complaint: CELLULITIS Time Seen by Provider: 02/06/22 16:35 Source: EMS and RN notes reviewed Mode of arrival: EMS Limitations: altered mental status History of Present Illness HPI narrative: Patient 82 years old with history of AFib seizures dementia with new onset of seizures 01/22 sent here for cellulitis of the left arm. Patient vomited small amount in the EMS just prior to arrival for arrival patient temperature was 93.2 degrees patient very combative on arrival Related Data Home Medications Medication Instructions Recorded Confirmed acetaminophen 325 mg tablet 650 mg PO Q4H PRN 12/30/21 02/06/22 aluminum-mag hydroxide-simethicone 30 ml PO Q4H PRN 12/30/21 02/06/22 200 mg-200 mg-20 mg/5 mL oral susp atorvastatin 20 mg tablet 20 mg PO BEDTIME 12/30/21 02/06/22 bisacodyl 10 mg rectal suppository 10 mg MS DAILY PRN 12/30/21 02/06/22 bisacodyl 5 mg tablet 5 mg PO DAILY 12/30/21 02/06/22 chlorpromazine 25 mg tablet 25 mg PO BID 12/30/21 02/06/22 chlorpromazine 50 mg tablet 50 mg PO BID 12/30/21 02/06/22 esomeprazole magnesium 40 mg 40 mg PO BID 12/30/21 02/06/22 capsule,delayed release (Nexium) gabapentin 100 mg capsule 100 mg PO BID 12/30/21 02/06/22 haloperidol decanoate 50 mg/mL 10 mg IM Q14D 12/30/21 02/06/22 intramuscular solution (Haldol Decanoate) ibuprofen 600 mg tablet 600 mg PO Q6H PRN 12/30/21 02/06/22 lactulose 10 gram/15 mL oral 20 g PO BID 12/30/21 02/06/22 solution loperamide 2 mg capsule 2 mg PO Q8H PRN 12/30/21 02/06/22 multivitamin 1 tab PO DAILY 12/30/21 02/06/22 ondansetron 4 mg disintegrating 4 mg PO Q4H PRN 12/30/21 02/06/22 tablet propranolol 20 mg tablet 20 mg PO TID 12/30/21 02/06/22 sennosides 8.6 mg tablet (senna) 8.6 mg PO DAILY PRN 12/30/21 02/06/22 sennosides 8.6 mg-docusate sodium 2 tab-cap PO BID 12/30/21 02/06/22 50 mg tablet (Senna Plus) tamsulosin 0.4 mg capsule 0.4 mg PO DAILY@1900 12/30/21 02/06/22 tramadol 50 mg tablet 50 mg PO BID 12/30/21 02/06/22 tramadol 50 mg tablet 50 mg PO Q8H PRN 12/30/21 02/06/22 diazepam 2 mg tablet 2 mg PO Q12H PRN 02/06/22 02/06/22 levothyroxine 75 mcg tablet 75 mcg PO DAILY 02/06/22 02/06/22 metoclopramide HCl 10 mg tablet 10 mg PO BID 02/06/22 02/06/22 Previous Rx's Medication Instructions Recorded aspirin 81 mg chewable tablet 81 mg PO DAILY #30 tab 01/04/22 levetiracetam 500 mg tablet 500 mg PO BID #60 tab 01/04/22 Allergies Allergy/AdvReac Type Severity Reaction Status Date / Time No Known Allergies Allergy Unverified 06/19/20 17:10 [No Known Allergies*] Review of Systems Review of Systems: Yes Unobtainable due to mental status PMFSH Past Medical History Medical History COPD (chronic obstructive pulmonary disease) Dementia Malignant neoplasm of prostate Prostate cancer Schizophrenia Family History Family History Other Family history unknown Social History Social History Household Members: Other Housing: [facility] Do you presently have visiting nurse or other home services: No Unable to assess alcohol history related to: Unable to respond Alcohol intake: unknown Patient Tobacco Use Status: Tobacco use Unknown Smoked in Last 30 Days: No Use of substances other than those prescribed or required for medical reasons: Unknown Advance Directives: No Advance Directives Information Provided: No service: No Physical Exam Vital Signs: Vital Signs: Last Vital Signs Temp 97.3 F 02/07/22 01:09 Pulse 109 H 02/07/22 01:09 Resp 16 02/07/22 01:09 BP 154/74 H 02/07/22 01:09 Pulse Ox 96 02/07/22 01:09 BMI result Body Mass Index 24.4 Appearance: Alert. And awake combative Eyes: PERRLA, ENT: Pharynx normal. Oral Mucosa moist Neck: Normal inspection. Neck supple. CVS: Normal heart rate and rhythm. Pulses normal. Respiratory: No respiratory distress. Equal air entry bilateral, no wheezing/rales/rhonchi Abdomen: Soft and nontender. Bowel sounds are present, no mass palpable, no CVA tenderness Skin: Skin warm and dry. Left elbow bursitis with pus discharge with surrounding cellulitis involving the forearm full range of movement of the left elbow Extremities: No lower extremity edema. No calf tenderness Neuro: Awake and alert, demented No motor deficit. Course Reevaluation(s) Reevaluation #1: 1700 Patient with left forearm cellulitis with bursitis noticed to have hypothermia likely patient's septic IV fluids started with 30 mL/kilogram and IV Zosyn pending labs Reevaluation #2: Patient has significant lactic acidosis IV fluids were given repeat lactic acid level improved to 2.9. CT scan of the abdomen showed pneumatosis coli and fecal impaction as patient history of AFib likely could be bowel ischemia will get CT angio to rule out bowel ischemia unable to assess abdominal because of patient's poor sensorium Focal examination for severe sepsis was done at 21:00 Time: 21:20 Reevaluation #3: Repeat lactic acid level is 1.8 patient is comfortable pending CT angio abdomen report will admit patient Time: 00:51 MDM - Skin/Abscess/Foreign Bdy MDM Narrative Medical decision making narrative: Patient with left forearm cellulitis with lactic acidosis with questionable bowel ischemia also had pneumonia bilateral patient received IV antibiotics and fluids feeling much better now awaiting for the CT angio for rule out bowel ischemia Lab Data Attestation: I reviewed the patient's lab results. Result diagrams: 02/06/22 17:12 02/06/22 17:12 Labs: Lab Results 02/06/22 02/06/22 02/06/22 Range/Units 17:12 17:12 17:12 WBC 7.5 (4.8-10.8) X10*3/uL RBC 3.91 L (4.60-5.80) X10*6/uL Hgb 11.2 L (14.0-18.0) g/dl Hct 34.7 L (42.0-52.0) % MCV 88.7 (80.0-98.0) fL MCH 28.6 (27.0-33.0) pg MCHC 32.3 (31.0-36.0) g/dl RDW 17.0 H (11.0-16.0) % Plt Count 153 L D (160-400) X10*3/uL MPV 11.2 (9.4-12.4) fL Immature Gran % (Auto) 0.7 H (0.0-0.4) % Neut % (Auto) 89.8 H (45-73) % Lymph % (Auto) 4.7 L (20-40) % [place] % (Auto) 4.0 (2-11) % Eos % (Auto) 0.5 (0-4) % Baso % (Auto) 0.3 (0-2) % Lymph # (Auto) 0.4 L (1.2-4.9) X10*3/uL [place] # (Auto) 0.3 (0.1-1.2) X10*3/uL Eos # (Auto) 0.0 (0.0-0.4) X10*3/uL Baso # (Auto) 0.0 (0.0-0.2) X10*3/uL Abs Immat Gran (auto) 0.05 H (0.00-0.03) X10*3/uL Absolute Neuts (auto) 6.7 (2.0-8.3) x10*3/uL Absolute Nucleated RBC 0.090 H (0.0-0.012) X10*3/uL Nucleated RBC % (auto) 1.2 H (0.0-0.2) /100WBC Sodium 146 H (135-145) mmol/L Potassium 4.3 (3.3-5.1) mmol/L Chloride 108 (96-108) mmol/L Carbon Dioxide 22 (22-29) mmol/L Anion Gap 20 (12-20) BUN 30 H (9-16) mg/dL Creatinine 1.07 (0.5-1.4) mg/dL Estim Creat Clear Calc 46.3 Estimated GFR > 60 Random Glucose 133 H D (60-115) mg/dL Lactic Acid 6.5 H* (0.5-2.0) mmol/L Lactic Acid F/U @ 2Hr (0.5-2.0) mmol/L Calcium 9.4 (8.4-10.2) mg/dL Total Bilirubin 0.3 (0.0-1.0) mg/dL AST 62 H (5-37) U/L ALT 115 H (0-40) U/L Alkaline Phosphatase 138 H (39-117) U/L Total Protein 6.3 L (6.5-8.0) g/dL Albumin 3.2 L (3.5-5.0) g/dL Urine Color Urine Appearance Urine pH (5.0-8.0) Ur Specific [place] (1.005-1.025) Urine Protein (NEG-TRACE) MG/DL Urine Glucose (UA) (NEG) MG/DL Urine Ketones (NEG) MG/DL Urine Blood (NEG) Urine Nitrite (NEG) Ur Leukocyte Esterase (NEG) COVID-19 (COOPER) (Negative) COVID-19 Clin Com 02/06/22 02/06/22 02/06/22 Range/Units 17:14 17:59 20:43 WBC (4.8-10.8) X10*3/uL RBC (4.60-5.80) X10*6/uL Hgb (14.0-18.0) g/dl Hct (42.0-52.0) % MCV (80.0-98.0) fL MCH (27.0-33.0) pg MCHC (31.0-36.0) g/dl RDW (11.0-16.0) % Plt Count (160-400) X10*3/uL MPV (9.4-12.4) fL Immature Gran % (Auto) (0.0-0.4) % Neut % (Auto) (45-73) % Lymph % (Auto) (20-40) % [place] % (Auto) (2-11) % Eos % (Auto) (0-4) % Baso % (Auto) (0-2) % Lymph # (Auto) (1.2-4.9) X10*3/uL [place] # (Auto) (0.1-1.2) X10*3/uL Eos # (Auto) (0.0-0.4) X10*3/uL Baso # (Auto) (0.0-0.2) X10*3/uL Abs Immat Gran (auto) (0.00-0.03) X10*3/uL Absolute Neuts (auto) (2.0-8.3) x10*3/uL Absolute Nucleated RBC (0.0-0.012) X10*3/uL Nucleated RBC % (auto) (0.0-0.2) /100WBC Sodium (135-145) mmol/L Potassium (3.3-5.1) mmol/L Chloride (96-108) mmol/L Carbon Dioxide (22-29) mmol/L Anion Gap (12-20) BUN (9-16) mg/dL Creatinine (0.5-1.4) mg/dL Estim Creat Clear Calc Estimated GFR Random Glucose (60-115) mg/dL Lactic Acid (0.5-2.0) mmol/L Lactic Acid F/U @ 2Hr 2.9 H* (0.5-2.0) mmol/L Calcium (8.4-10.2) mg/dL Total Bilirubin (0.0-1.0) mg/dL AST (5-37) U/L ALT (0-40) U/L Alkaline Phosphatase (39-117) U/L Total Protein (6.5-8.0) g/dL Albumin (3.5-5.0) g/dL Urine Color YELLOW Urine Appearance CLEAR Urine pH 5.5 (5.0-8.0) Ur Specific [place] >= 1.030 H (1.005-1.025) Urine Protein TRACE (NEG-TRACE) MG/DL Urine Glucose (UA) NEG (NEG) MG/DL Urine Ketones NEG (NEG) MG/DL Urine Blood NEG (NEG) Urine Nitrite NEG (NEG) Ur Leukocyte Esterase NEG (NEG) COVID-19 (COOPER) Negative (Negative) COVID-19 Clin Com See Note Critical Care Time Critical Care Time Critical Care Time: Yes Total Critical Care Time: 60 Attestation: I spent 60 minutes of critical care, with interventions, assessments, speaking to patient, consultants Discharge Plan Discharge Clinical Impression: Cellulitis of forearm, left, Atrial fibrillation, Pneumonia, Acidosis, lactic Patient Disposition: Admitted As Inpatient
[2022-02-06 17:18] LABS: MANUAL DIFF FLAG NO
[2022-02-06 17:24] LABS: Basophils Percent Auto 0.3 % (0-2); Eosinophils Percent Auto 0.5 % (0-4); Hematocrit 34.7 % (42.0-52.0); Hemoglobin 11.2 g/dl (14.0-18.0); Imm Gran Abs Auto 0.05 X10*3/uL (0.00-0.03); Imm Gran Pct Auto 0.7 % (0.0-0.4); LEFT SHIFT? 1; Lymphocytes Absolute Auto 0.4 X10*3/uL (1.2-4.9); Lymphocytes Percent Auto 4.7 % (20-40); Mean Corpuscular HGB Conc 32.3 g/dl (31.0-36.0); Mean Corpuscular Hemoglobin 28.6 pg (27.0-33.0); Mean Corpuscular Volume 88.7 fL (80.0-98.0); Mean Platelet Volume 11.2 fL (9.4-12.4); Monocytes Absolute Auto 0.3 X10*3/uL (0.1-1.2); Neutrophils Absolute Auto 6.7 x10*3/uL (2.0-8.3); Neutrophils Percent Auto 89.8 % (45-73); Platelet Count 153 X10*3/uL (160-400); Red Blood Count 3.91 X10*6/uL (4.60-5.80); White Blood Count 7.5 X10*3/uL (4.8-10.8)
--- NOTE | 2022-02-06 17:24 | PC.NURSE ---
desaturates to 82% on RA. Pt hypothermic. aware. pt placed on bear hugger per order.
[2022-02-06 17:26] LABS: NRBC Pct Auto 1.2 /100WBC (0.0-0.2)
[2022-02-06 17:39] LABS: Alanine Aminotransferase 115 U/L (0-40); Albumin Level 3.2 g/dL (3.5-5.0); Alkaline Phosphatase 138 U/L (39-117); Anion Gap 20 (12-20); Aspartate Amino Transferase 62 U/L (5-37); Bilirubin Total 0.3 mg/dL (0.0-1.0); Blood Urea Nitrogen 30 mg/dL (9-16); Calcium 9.4 mg/dL (8.4-10.2); Carbon Dioxide 22 mmol/L (22-29); Chloride 108 mmol/L (96-108); Creatinine Clr Calc Pharmacy 46.3; Estimated Glomerular Filt Rate > 60; Glucose Random 133 mg/dL (60-115); Lactic Acid 6.5 mmol/L (0.5-2.0); Potassium 4.3 mmol/L (3.3-5.1); Sodium 146 mmol/L (135-145); Total Protein 6.3 g/dL (6.5-8.0)
--- NOTE | 2022-02-06 17:48 | ECG_ITS ---
Test Reason : AFIB Blood Pressure : / mmHG Vent. Rate : 104 BPM Atrial Rate : 104 BPM P-R Int : 158 ms QRS Dur : 094 ms QT Int : 348 ms P-R-T Axes : 074 -15 065 degrees QTc Int : 457 ms Sinus tachycardia Nonspecific ST and T wave abnormality Abnormal ECG When compared with ECG of 30-DEC-2021 07:51, Sinus rhythm has replaced Atrial fibrillation Nonspecific T wave abnormality now evident in Lateral leads Referred By: Carl Michaud Electronically Signed By:Emir Bautista
[2022-02-06 17:52] LABS: COVID-19 Test Negative (Negative); IDNOW Serial# 55D5AD1C
[2022-02-06] MEDS: Piperacillin Sodium/Tazobactam 3.375 GM in 0.9 % Sodium Chloride 50 ML IV (17:53)
[2022-02-06] MEDS: 0.9 % Sodium Chloride 3,000 ML 1000 ML IV (17:54)
[2022-02-06 18:20] LABS: Appearance Urine CLEAR; Color Urine YELLOW; Glucose Urine UA NEG (NEG); Leukocyte Esterase Urine NEG (NEG); Nitrite Urine NEG (NEG); PH 5.5 (5.0-8.0); Specific Gravity - Urine >= 1.030 (1.005-1.025); Urine Blood NEG (NEG); Urine Ketones NEG (NEG); Urine Protein TRACE MG/DL (NEG-TRACE)
[2022-02-06 19:17] LABS: Reflex Lactate? Lactic Acid Added
--- NOTE | 2022-02-06 19:47 | PC.NURSE ---
2nd lactic deffered until after fluids are done.
--- NOTE | 2022-02-06 19:52 | PHA.MEDREC ---
MED REC COMPLETE, NO ISSUES Pharmacy Consult ? Medication Reconciliation Pharmacy has completed the medication reconciliation.
[2022-02-06 21:09] LABS: ~Lactic Acid-LAB USE ONLY 2.9 mmol/L (0.5-2.0)
--- NOTE | 2022-02-06 22:46 | PM.IMHP ---
History of Present Illness Date of Service: 02/06/22 Chief Complaint: Altered mental status Patient is completely confused therefore history is obtained from ED physician as well as chart Patient comes in from [facility] sent to the hospital for possible dehydration/aspiration /altered mental status. skilled nursing also noted the patient has history of bursitis and forearm cellulitis that was not healing on p.o. antibiotics. On arrival of the patient he was found to be hypothermic I am unable to get much history from the patient as he is very confused and not following command. Unable to complete review of system Vitals on arrival are significant for a temperature of 93.1 degrees, patient then developed tachycardia of 107, respiratory rate of 22, blood pressure remained stable Labs found to be significant for BC of 7.5, sodium of 146, lactic acid of 6.5, AST of 115, ALT of 138, UA negative EKG showed AFib with RVR Chest x-ray showed suggestive of bronchitis small airway disease, patchy opacity in the right per her middle lobe And initial Abdominal pelvic CT was done without contrast which showed excessive amount of stool in the colon suggestive of constipation, possible fecal impaction, air within the lumen of the colon wall suggesting pneumatosis coli and ischemia cannot be completely ruled out. A CT angiogram of the abdomen pelvic was done which showed large volume of stool in the rectum with associated wall thickness suspicious for stercoral colitis, no convincing pneumatosis. Patient started on antibiotics and will be admitted for further management Review of Systems Review of Systems: Yes all other systems are reviewed and are negative [facility] Medical History COPD (chronic obstructive pulmonary disease) Dementia Malignant neoplasm of prostate Prostate cancer Schizophrenia Family History Other Family history unknown Social History Household Members: Other Housing: Halfway Do you presently have visiting nurse or other home services: No Unable to assess alcohol history related to: Unable to respond Alcohol intake: unknown Patient Tobacco Use Status: Tobacco use Unknown Smoked in Last 30 Days: No Use of substances other than those prescribed or required for medical reasons: Unknown Advance Directives: No Advance Directives Information Provided: No service: No Meds Allergies Allergy/AdvReac Type Severity Reaction Status Date / Time No Known Allergies Allergy Unverified 06/19/20 17:10 [No Known Allergies*] Home Medications Medication Instructions Recorded Confirmed Last Taken Type acetaminophen 325 mg tablet 650 mg PO Q4H PRN 12/30/21 02/06/22 Unknown History aluminum-mag hydroxide-simethicone 30 ml PO Q4H PRN 12/30/21 02/06/22 Unknown History 200 mg-200 mg-20 mg/5 mL oral susp atorvastatin 20 mg tablet 20 mg PO BEDTIME 12/30/21 02/06/22 02/05/22 History bisacodyl 10 mg rectal suppository 10 mg SD DAILY PRN 12/30/21 02/06/22 Unknown History bisacodyl 5 mg tablet 5 mg PO DAILY 12/30/21 02/06/22 02/06/22 History chlorpromazine 25 mg tablet 25 mg PO BID 12/30/21 02/06/22 02/06/22 History chlorpromazine 50 mg tablet 50 mg PO BID 12/30/21 02/06/22 02/06/22 History esomeprazole magnesium 40 mg 40 mg PO BID 12/30/21 02/06/22 02/06/22 History capsule,delayed release (Nexium) gabapentin 100 mg capsule 100 mg PO BID 12/30/21 02/06/22 02/06/22 History haloperidol decanoate 50 mg/mL 10 mg IM Q14D 12/30/21 02/06/22 01/25/22 History intramuscular solution (Haldol Decanoate) ibuprofen 600 mg tablet 600 mg PO Q6H PRN 12/30/21 02/06/22 Unknown History lactulose 10 gram/15 mL oral 20 g PO BID 12/30/21 02/06/22 02/06/22 History solution loperamide 2 mg capsule 2 mg PO Q8H PRN 12/30/21 02/06/22 Unknown History multivitamin 1 tab PO DAILY 12/30/21 02/06/22 02/06/22 History ondansetron 4 mg disintegrating 4 mg PO Q4H PRN 12/30/21 02/06/22 Unknown History tablet propranolol 20 mg tablet 20 mg PO TID 12/30/21 02/06/22 02/06/22 History sennosides 8.6 mg tablet (senna) 8.6 mg PO DAILY PRN 12/30/21 02/06/22 Unknown History sennosides 8.6 mg-docusate sodium 2 tab-cap PO BID 12/30/21 02/06/22 02/06/22 History 50 mg tablet (Senna Plus) tamsulosin 0.4 mg capsule 0.4 mg PO DAILY@1900 12/30/21 02/06/22 02/05/22 History tramadol 50 mg tablet 50 mg PO BID 12/30/21 02/06/22 02/06/22 History tramadol 50 mg tablet 50 mg PO Q8H PRN 12/30/21 02/06/22 Unknown History diazepam 2 mg tablet 2 mg PO Q12H PRN 02/06/22 02/06/22 Unknown History levothyroxine 75 mcg tablet 75 mcg PO DAILY 02/06/22 02/06/22 02/06/22 History metoclopramide HCl 10 mg tablet 10 mg PO BID 02/06/22 02/06/22 02/06/22 History Physical Exam Vital Signs and Narrative: Vital Signs: Last Vital Signs Temp 97.7 F 02/06/22 22:00 Pulse 120 H 02/06/22 22:00 Resp 18 02/06/22 22:00 BP 150/73 H 02/06/22 22:00 Pulse Ox 94 02/06/22 22:00 BMI result Body Mass Index 24.4 Const: Other: Patient is very confused, swinging at staff, not following command, Eyes: General: appearance normal, both eyes and all related structures Pupils: Equal, round and reactive pupils present Resp: Effort & Inspection: normal respiratory effort Cardio: Rate: regular rate Rhythm: regular rhythm GI: Palpation (GI): Soft to palpation Skin: General skin exam: no rashes or lesions noted Neuro: Cranial nerves: Yes Equal, round and reactive pupils present Extrem: Other: Left forearm erythema, swelling General: Yes normal to inspection Results Labs CBC and Chem 7: 02/06/22 17:12 02/06/22 17:12 Labs: Laboratory Results - last 24 hr 02/06/22 02/06/22 02/06/22 17:12 17:12 17:12 MCV 88.7 MCH 28.6 MCHC 32.3 RDW 17.0 H Plt Count 153 L D MPV 11.2 Immature Gran % (Auto) 0.7 H Neut % (Auto) 89.8 H Lymph % (Auto) 4.7 L Potter % (Auto) 4.0 Eos % (Auto) 0.5 Baso % (Auto) 0.3 Lymph # (Auto) 0.4 L Potter # (Auto) 0.3 Eos # (Auto) 0.0 Baso # (Auto) 0.0 Abs Immat Gran (auto) 0.05 H Absolute Neuts (auto) 6.7 Absolute Nucleated RBC 0.090 H Nucleated RBC % (auto) 1.2 H Anion Gap 20 Estim Creat Clear Calc 46.3 Estimated GFR > 60 Random Glucose 133 H D Lactic Acid 6.5 H* Lactic Acid F/U @ 2Hr Calcium 9.4 Total Bilirubin 0.3 AST 62 H ALT 115 H Alkaline Phosphatase 138 H Total Protein 6.3 L Albumin 3.2 L Urine Color Urine Appearance Urine pH Ur Specific [place] Urine Protein Urine Glucose (UA) Urine Ketones Urine Blood Urine Nitrite Ur Leukocyte Esterase COVID-19 ([facility]) COVID-19 [place] Com 02/06/22 02/06/22 02/06/22 17:14 17:59 20:43 MCV MCH MCHC RDW Plt Count MPV Immature Gran % (Auto) Neut % (Auto) Lymph % (Auto) Potter % (Auto) Eos % (Auto) Baso % (Auto) Lymph # (Auto) Potter # (Auto) Eos # (Auto) Baso # (Auto) Abs Immat Gran (auto) Absolute Neuts (auto) Absolute Nucleated RBC Nucleated RBC % (auto) Anion Gap Estim Creat Clear Calc Estimated GFR Random Glucose Lactic Acid Lactic Acid F/U @ 2Hr 2.9 H* Calcium Total Bilirubin AST ALT Alkaline Phosphatase Total Protein Albumin Urine Color YELLOW Urine Appearance CLEAR Urine pH 5.5 Ur Specific [place] >= 1.030 H Urine Protein TRACE Urine Glucose (UA) NEG Urine Ketones NEG Urine Blood NEG Urine Nitrite NEG Ur Leukocyte Esterase NEG COVID-19 ([facility]) Negative COVID-19 Clin Com See Note Imaging Radiologist's Impressions: Impressions Chest X-Ray 02/06/22 18:03 IMPRESSION: Findings suggestive of bronchitis/small airway disease. Patchy opacity in the right parahilar middle lobe question bronchopneumonia. Abdomen/Pelvis CT 02/06/22 21:05 IMPRESSION: *Excessive amount of stool in the colon suggesting constipation, especially the rectum probably fecal impaction. * There is air within the lumen of the colon wall suggesting pneumatosis coli, nonspecific CT finding, CANNOT ENTIRELY RULE OUT THE POSSIBILITY OF ISCHEMIA. May consider correlation with follow-up CT angiogram. *Airspace opacification infiltrate presumably pneumonia at lower lobes. *Other noncritical findings described above unchanged. (Referring physician staff is being called, to be alerted of the above findings and recommendations.) Assessment and Plan (1) Sepsis: Status: Acute (2) Cellulitis of forearm, left: Status: Acute (3) Pneumonia: Status: Acute (4) Acidosis, lactic: Status: Acute (5) Pneumonia: Status: Acute (6) Hypothermia: Status: Acute (7) Atrial fibrillation with rapid ventricular response: Status: Acute (8) Constipation: Status: Acute Plan This is an 82-year-old male with past medical history of AFib, COPD, prostate cancer, schizophrenia, enough [facility] who comes into the hospital with altered mental status found to have multiple she abnormalities as below # sepsis - likely multifactorial secondary to pneumonia as well as cellulitis of forearm - patient has tachycardia, hypothermia, lactic acidosis - started on IV antibiotic - follow cultures - IV fluids # pneumonia - likely aspiration - will treat with IV antibiotics - follow cultures # cellulitis - has left arm cellulitis, history of left arm bursitis - IV antibiotics - Follow cultures # hypothermia - resolved - secondary to sepsis - continue antibiotics # sterocolitis/severe constipation - initial CT showed possible pneumatosis coli - but follow-up CT angiogram was negative for pneumatosis - patient appears to have fecal impaction - will give enema, if no relief might to manual impaction # AFib with RVR - secondary to above - slow down spontaneously without any treatment - telemetry # lactic acidosis - IV fluids # schizophrenia - continue antipsychotics DVT prophylaxis: Heparin subQ Quality Stroke Does the patient have a stroke diagnosis?: No VTE Prior VTE?: No VTE Risk Level:: Medical - moderate - high VTE Device Contraindication: Treatment Not Indicated VTE Drug Contraindication: N/A - Med Ordered
[2022-02-06 22:49] LABS: Reflex Lactate? 2 Y
[2022-02-06] MEDS: Dextrose 5 % 1,000 ML 100 ML IVCONT (23:20)
[2022-02-06] MEDS: Azithromycin 500 MG in 0.9 % Sodium Chloride 250 ML 125 MG IV (23:40)
[2022-02-06] MEDS: Heparin Sodium,Porcine 5,000 UNIT/ML VIAL 5000 UNIT SUBCUT (23:41)
[2022-02-06 23:44] LABS: ~Lactic Acid-LAB USE ONLY 1.8 mmol/L (0.5-2.0)
[2022-02-06 23:50] LABS: Lactate Dehydrogenase 272 U/L (118-273)
[2022-02-07] VITALS (8 sets, daily range): BP systolic 138–180; BP diastolic 59–96; PULSE 92–111; RESP 2–20; TEMP 35.2–36.3; O2SAT 92–96; BMI 26.1
[2022-02-07] MEDS: iohexoL 350 MG/ML 100 ML INFUS..BTL 85 ML IV (00:58)
[2022-02-07] MEDS: metroNIDAZOLE/NS 500 MG/100 ML PIGGYBACK 100 MG IV (02:11)
--- NOTE | 2022-02-07 06:40 | PC.NURSE ---
MD matthewfied of desaturation during cleaning and am care. Pt switched over to venti mask. Plan at this time is to give soap vaishnavi enema
[2022-02-07 07:03] LABS: Hemoglobin 9.7 g/dl (14.0-18.0); Mean Corpuscular HGB Conc 32.3 g/dl (31.0-36.0); Mean Corpuscular Hemoglobin 28.4 pg (27.0-33.0); Mean Corpuscular Volume 87.7 fL (80.0-98.0); Mean Platelet Volume 10.9 fL (9.4-12.4); NRBC Pct Auto 1.3 /100WBC (0.0-0.2); Platelet Count 127 X10*3/uL (160-400); Red Blood Count 3.42 X10*6/uL (4.60-5.80); Red Cell Distribution Width 16.8 % (11.0-16.0); White Blood Count 5.4 X10*3/uL (4.8-10.8)
[2022-02-07] MEDS: Sodium Phosphate,Mono-Dibasic 133 ML ENEMA PR (07:30)
--- NOTE | 2022-02-07 07:36 | PC.NURSE ---
PT IS CURRENTLY AWAKE, ON A VENTI MASK AT 6-35 AND SATING AT 95%, INTERMITTENT WET COUGH NOTICED, LS DIMINISHED, SINUS ON THE MONITOR, STEWART IN PLACE BY PREVIOUS SHIFT AND DARNING WELL, EMPTIED 900ML OF DARKER YELLOW URINE, PT'S SPEECH IS GARBLED AND UNABLE TO UNDERSTAND AT THIS TIME.
[2022-02-07 08:05] LABS: Anion Gap 16 (12-20); Blood Urea Nitrogen 22 mg/dL (9-16); Calcium 8.6 mg/dL (8.4-10.2); Carbon Dioxide 20 mmol/L (22-29); Chloride 115 mmol/L (96-108); Creatinine Clr Calc Pharmacy 53.3; Estimated Glomerular Filt Rate > 60; Glucose Random 70 mg/dL (60-115); Potassium 4.7 mmol/L (3.3-5.1); Sodium 146 mmol/L (135-145)
[2022-02-07 08:08] LABS: Band Neutrophils Percent 16 % (3-5); Lymphocytes Absolute Manual 0.5 X10*3/uL (1.2-4.9); Lymphocytes Percent Manual 9 % (20-40); Metamyelocytes Absolute 0.1 X10*3/uL; Metamyelocytes Percent 1 %; Monocytes Absolute Manual 0.2 X10*3/uL (0.1-1.2); Monocytes Percent Manual 4 % (2-11); Neutrophils Absolute Manual 4.6 X10*3/uL (2.0-8.3); Neutrophils Percent Manual 70 % (45-73); Nucleated Red Blood Cells 2 /100WBC (0-0)
[2022-02-07 08:09] LABS: Burr Cells 1+ (0-2) /OIF; Hypochromasia 1+ (5-14) /OIF; Platelet Estimate SLIGHTLY DECREASED (NORMAL); Platelet Morphology Comment NORMAL; RBC Morphology NOTED
[2022-02-07] MEDS: Piperacillin Sodium/Tazobactam 3.375 GM in 0.9 % Sodium Chloride 50 ML IV ×3 (08:09→21:21)
[2022-02-07] MEDS: ondansetron HCL 4 MG/2 ML VIAL IVPUSH (08:16)
--- NOTE | 2022-02-07 08:18 | PC.NURSE ---
pt found with small amount of brown emesis, given zofran, pt also had a small amount of very loose brown bowel movement, pt cleaned up and positioned on his right sided
[2022-02-07 09:17] LABS: Glucose, Whole Blood 61 mg/dL (60-115)
--- NOTE | 2022-02-07 10:15 | PC.NURSE ---
pt had another small amount of loose stool,
[2022-02-07] MEDS: levETIRAcetam 500 MG TABLET PO (10:17)
[2022-02-07] MEDS: Heparin Sodium,Porcine 5,000 UNIT/ML VIAL 5000 UNIT SUBCUT ×2 (10:21→22:38)
--- NOTE | 2022-02-07 10:32 | PC.NURSE ---
attempted to give the pt his morning medication after a verbal order by dr allen, pt unable to swallow the medication crushed with pudding, pt coughing and keeping the meds in his cheek
[2022-02-07] MEDS: Dextrose 5 % 1,000 ML 100 ML IVCONT ×2 (10:56→21:16)
[2022-02-07] MEDS: levETIRAcetam in NaCl (iso-os) 500 MG/100 ML PIGGYBACK 400 MG IV (11:20)
--- NOTE | 2022-02-07 11:35 | P.PNIM_ITS ---
Subjective Subjective Date of Service: 02/07/22 Interval History: Seens and evaluated this morning , Nonverbal, responsive to stimuli Unable to tolerate diet Review of Systems Non verbal to communicate Physical Exam Vital Signs: Vital Signs: Last Vital Signs Temp 95.9 F L 02/07/22 10:39 Pulse 104 H 02/07/22 10:39 Resp 20 02/07/22 10:39 BP 138/59 L 02/07/22 10:39 Pulse Ox 96 02/07/22 10:39 BMI result Body Mass Index 24.4 Const: Other: Constitutional : Altered, responsive to physical stimuli, on oxygen supplement Neck : Normal inspection, Supple Cardiovascular : RRR, no JVP, no lower extremity edema Respiratory : fair bilateral air entry, basal crackles, wheezes or rhonchi Gastrointestinal: soft, lax, Normal bowel sounds, distended, Non tender Skin : Warm, Dry, left upper extremity cellulitis Neurological : Altered mentation, open eyes to physical stimuli , unable to assess any focal deficit Objective Data Active Medications Acetaminophen (Acetaminophen Supp 650 Mg Supp.Rect) 650 mg [place] Q6H PRN PRN Reason: Pain, Mild (Pain Scale 1-3) Al Hydroxide/Mg Hydroxide (Magnesium Hydrox/Alum Hydrox 30 Ml Oral.Susp) 30 ml PO Q4H PRN PRN Reason: Indigestion Aspirin (Aspirin 81 Mg Tab.Chew) 81 mg PO DAILY [facility] Last Admin: 02/07/22 10:35 Dose: Not Given Documented by: VALDO Non-Admin Reason: NPO Atorvastatin Calcium (Atorvastatin Calcium 20 Mg Tablet) 20 mg PO BEDTIME [facility] Chlorpromazine HCl (Chlorpromazine Hcl 25 Mg Tablet) 50 mg PO BID [facility] Last Admin: 02/07/22 10:35 Dose: Not Given Documented by: VALDO Non-Admin Reason: NPO Chlorpromazine HCl (Chlorpromazine Hcl 25 Mg Tablet) 25 mg PO BID [facility] Last Admin: 02/07/22 10:35 Dose: Not Given Documented by: VALDO Non-Admin Reason: NPO Dextrose (Dextrose 50 % 25 Gm/50 Ml Syringe) 25 gm IVPUSH Q15M PRN; Protocol PRN Reason: per Hypoglycemia Standing Ord. Diazepam (Diazepam 2 Mg Tablet) 2 mg PO Q12H PRN PRN Reason: Agitation Docusate Sodium (Docusate Sodium 100 Mg Capsule) 200 mg PO DAILY [facility] Last Admin: 02/07/22 10:36 Dose: Not Given Documented by: VALDO Non-Admin Reason: NPO Gabapentin (Gabapentin 100 Mg Capsule) 100 mg PO BID [facility] Last Admin: 02/07/22 10:36 Dose: Not Given Documented by: VALDO Non-Admin Reason: NPO Heparin Sodium (Porcine) (Heparin Sodium,Porcine 5,000 Unit/Ml Vial) 5,000 unit SUBCUT Q12H [facility] Last Admin: 02/07/22 10:21 Dose: 5,000 unit Documented by: VALDO Dextrose (D5w) 1,000 mls @ 100 mls/hr IVCONT .Q10H [facility] Last Admin: 02/07/22 10:56 Dose: 100 mls/hr Documented by: ASHKAN Piperacillin Sod/Tazobactam (Sod 3.375 gm/ Sodium Chloride) 50 mls @ 100 mls/hr IV Q6H [facility] Last Infusion: 02/07/22 08:40 Dose: 0 mls/hr Documented by: VALDO Levetiracetam (Keppra) 500 mg in 100 mls @ 400 mls/hr IV Q12H [facility] Last Admin: 02/07/22 11:23 Dose: Not Given Documented by: ASHKAN Non-Admin Reason: given at 1045 Lactulose (Lactulose 20 Gm/30 Ml Solution) 30 gm PO BID [facility] Last Admin: 02/07/22 10:36 Dose: Not Given Documented by: VALDO Non-Admin Reason: NPO Levothyroxine Sodium (Levothyroxine Sodium 75 Mcg Tablet) 75 mcg PO DAILY@0600 [facility] Last Admin: 02/07/22 07:31 Dose: Not Given Documented by: VALOD Non-Admin Reason: NPO Loperamide HCl (Loperamide Hcl 2 Mg Capsule) 2 mg PO Q8H PRN PRN Reason: Diarrhea Magnesium Hydroxide (Milk Of Magnesia 30 Ml Oral.Susp) 30 ml PO DAILY PRN PRN Reason: Constipation Metoclopramide HCl (Metoclopramide Hcl 10 Mg Tablet) 10 mg PO BID [facility] Last Admin: 02/07/22 10:36 Dose: Not Given Documented by: VALDO Non-Admin Reason: NPO Multivitamins/Vitamin C (Multivitamin Tablet) 1 tab PO DAILY [facility] Last Admin: 02/07/22 10:36 Dose: Not Given Documented by: VALDO Non-Admin Reason: NPO Omeprazole (Omeprazole 20 Mg Capsule.Dr) 20 mg PO BID@0630,1630 [facility] Ondansetron HCl (Ondansetron Hcl 4 Mg/2 Ml Vial) 4 mg IVPUSH Q8H PRN PRN Reason: Nausea and Vomiting Last Admin: 02/07/22 08:16 Dose: 4 mg Documented by: VALDO Propranolol HCl (Propranolol Hcl 20 Mg Tablet) 20 mg PO TID [facility]; Protocol Last Admin: 02/07/22 10:36 Dose: Not Given Documented by: VALDO Non-Admin Reason: NPO Senna (Sennosides 8.6 Mg Tablet) 8.6 mg PO DAILY PRN PRN Reason: Constipation Senna (Sennosides 8.6 Mg Tablet) 17.2 mg PO BID [facility] Last Admin: 02/07/22 10:36 Dose: Not Given Documented by: VALDO Non-Admin Reason: NPO Tamsulosin HCl (Tamsulosin Hcl 0.4 Mg Capsule) 0.4 mg PO DAILY@1900 [facility] Tramadol HCl (Tramadol Hcl 50 Mg Tablet) 50 mg PO Q8H PRN PRN Reason: Pain (Scale Score 4-6) Labs CBC & Chem 7: 02/07/22 06:29 02/07/22 13:01 Labs: Laboratory Results - last 24 hr 02/06/22 02/06/22 02/06/22 17:12 17:12 17:12 MCV 88.7 MCH 28.6 MCHC 32.3 RDW 17.0 H Plt Count 153 L D MPV 11.2 Immature Gran % (Auto) 0.7 H Neut % (Auto) 89.8 H Lymph % (Auto) 4.7 L Kimble % (Auto) 4.0 Eos % (Auto) 0.5 Baso % (Auto) 0.3 Lymph # (Auto) 0.4 L Kimble # (Auto) 0.3 Eos # (Auto) 0.0 Baso # (Auto) 0.0 Abs Immat Gran (auto) 0.05 H Absolute Neuts (auto) 6.7 Absolute Nucleated RBC 0.090 H Nucleated RBC % (auto) 1.2 H Neutrophils % (Manual) Band Neutrophils % Lymphocytes % (Manual) Monocytes % (Manual) Metamyelocytes % Abs Neuts (Manual) Lymphocytes # (Manual) Monocytes # (Manual) Metamyelocytes # Nucleated RBCs Platelet Estimate Plt Morphology Comment RBC Morphology Hypochromasia Lynn Cells Anion Gap 20 Estim Creat Clear Calc 46.3 Estimated GFR > 60 POC Glucose Random Glucose 133 H D Lactic Acid 6.5 H* Lactic Acid F/U @ 2Hr Lactic Acid F/U @ 4Hr Calcium 9.4 Total Bilirubin 0.3 AST 62 H ALT 115 H Alkaline Phosphatase 138 H Lactate Dehydrogenase Total Protein 6.3 L Albumin 3.2 L Urine Color Urine Appearance Urine pH Ur Specific [place] Urine Protein Urine Glucose (UA) Urine Ketones Urine Blood Urine Nitrite Ur Leukocyte Esterase COVID-19 ([facility]) COVID-19 [employer] 02/06/22 02/06/22 02/06/22 17:14 17:59 20:43 MCV MCH MCHC RDW Plt Count MPV Immature Gran % (Auto) Neut % (Auto) Lymph % (Auto) Kimble % (Auto) Eos % (Auto) Baso % (Auto) Lymph # (Auto) Kimble # (Auto) Eos # (Auto) Baso # (Auto) Abs Immat Gran (auto) Absolute Neuts (auto) Absolute Nucleated RBC Nucleated RBC % (auto) Neutrophils % (Manual) Band Neutrophils % Lymphocytes % (Manual) Monocytes % (Manual) Metamyelocytes % Abs Neuts (Manual) Lymphocytes # (Manual) Monocytes # (Manual) Metamyelocytes # Nucleated RBCs Platelet Estimate Plt Morphology Comment RBC Morphology Hypochromasia Lynn Cells Anion Gap Estim Creat Clear Calc Estimated GFR POC Glucose Random Glucose Lactic Acid Lactic Acid F/U @ 2Hr 2.9 H* Lactic Acid F/U @ 4Hr Calcium Total Bilirubin AST ALT Alkaline Phosphatase Lactate Dehydrogenase Total Protein Albumin Urine Color YELLOW Urine Appearance CLEAR Urine pH 5.5 Ur Specific [place] >= 1.030 H Urine Protein TRACE Urine Glucose (UA) NEG Urine Ketones NEG Urine Blood NEG Urine Nitrite NEG Ur Leukocyte Esterase NEG COVID-19 ([facility]) Negative COVID-19 [employer] Com See Note 02/06/22 02/06/22 02/07/22 23:24 23:24 06:29 MCV 87.7 MCH 28.4 MCHC 32.3 RDW 16.8 H Plt Count 127 L MPV 10.9 Immature Gran % (Auto) Cancelled Neut % (Auto) Cancelled Lymph % (Auto) Cancelled Kimble % (Auto) Cancelled Eos % (Auto) Cancelled Baso % (Auto) Cancelled Lymph # (Auto) Cancelled Kimble # (Auto) Cancelled Eos # (Auto) Cancelled Baso # (Auto) Cancelled Abs Immat Gran (auto) Cancelled Absolute Neuts (auto) Cancelled Absolute Nucleated RBC 0.070 H Nucleated RBC % (auto) 1.3 H Neutrophils % (Manual) 70 Band Neutrophils % 16 H Lymphocytes % (Manual) 9 L Monocytes % (Manual) 4 Metamyelocytes % 1 Abs Neuts (Manual) 4.6 Lymphocytes # (Manual) 0.5 L Monocytes # (Manual) 0.2 Metamyelocytes # 0.1 Nucleated RBCs 2 H Platelet Estimate SLIGHTLY DECREASED Plt Morphology Comment NORMAL RBC Morphology NOTED Hypochromasia 1+ (5-14) Lynn Cells 1+ (0-2) Anion Gap Estim Creat Clear Calc Estimated GFR POC Glucose Random Glucose Lactic Acid Lactic Acid F/U @ 2Hr Lactic Acid F/U @ 4Hr 1.8 Calcium Total Bilirubin AST ALT Alkaline Phosphatase Lactate Dehydrogenase 272 Total Protein Albumin Urine Color Urine Appearance Urine pH Ur Specific [place] Urine Protein Urine Glucose (UA) Urine Ketones Urine Blood Urine Nitrite Ur Leukocyte Esterase COVID-19 ([facility]) COVID-19 Clin Com 02/07/22 02/07/22 07:32 09:07 MCV MCH MCHC RDW Plt Count MPV Immature Gran % (Auto) Neut % (Auto) Lymph % (Auto) Kimble % (Auto) Eos % (Auto) Baso % (Auto) Lymph # (Auto) Kimble # (Auto) Eos # (Auto) Baso # (Auto) Abs Immat Gran (auto) Absolute Neuts (auto) Absolute Nucleated RBC Nucleated RBC % (auto) Neutrophils % (Manual) Band Neutrophils % Lymphocytes % (Manual) Monocytes % (Manual) Metamyelocytes % Abs Neuts (Manual) Lymphocytes # (Manual) Monocytes # (Manual) Metamyelocytes # Nucleated RBCs Platelet Estimate Plt Morphology Comment RBC Morphology Hypochromasia Casey Cells Anion Gap 16 Estim Creat Clear Calc 53.3 Estimated GFR > 60 POC Glucose 61 Random Glucose 70 D Lactic Acid Lactic Acid F/U @ 2Hr Lactic Acid F/U @ 4Hr Calcium 8.6 D Total Bilirubin AST ALT Alkaline Phosphatase Lactate Dehydrogenase Total Protein Albumin Urine Color Urine Appearance Urine pH Ur Specific [place] Urine Protein Urine Glucose (UA) Urine Ketones Urine Blood Urine Nitrite Ur Leukocyte Esterase COVID-19 ([facility]) COVID-19 Clin Com Microbiology Microbiology Results: Microbiology 02/06/22 17:11 Gram Stain - Final Elbow Routine Culture - Preliminary Culture in progress. Assessment and Plan (1) Sepsis: Status: Acute (2) Constipation: Status: Acute (3) Cellulitis of forearm, left: Status: Acute (4) Atrial fibrillation: Status: Acute (5) Pneumonia: Status: Acute Plan This is an 82-year-old male with past medical history of AFib, COPD, prostate cancer, schizophrenia, enough [employer] who comes into the hospital with altered mental status found to have multiple she abnormalities as below # sepsis 2/2 Aspiration pneumonia and cellulitis likely multifactorial secondary to pneumonia as well as cellulitis of forearm IV antibiotic follow cultures # hypothermia resolved secondary to sepsis continue antibiotics # sterocolitis/severe constipation initial CT showed possible pneumatosis coli follow-up CT angiogram was negative for pneumatosis appears to have fecal impaction given enema and had small bowel movement # AFib with RVR secondary to above On propranolol, to continue Use metoprolol IV p.r.n. while NPO # lactic acidosis Secondary to infection Continue IV fluids # schizophrenia continue antipsychotics DVT prophylaxis Heparin subQ The patient will need to stay overnight in the hospital to continue evaluation and treatment of sepsis and aspiration pneumonia pending final blood culture results giving high chance of decompensation in to severe sepsis. Quality Stroke Does the patient have a stroke diagnosis?: No VTE Prior VTE?: No VTE Risk Level:: Medical - moderate - high VTE Device Contraindication: Treatment Not Indicated VTE Drug Contraindication: N/A - Med Ordered
[2022-02-07 11:44] LABS: Glucose, Whole Blood 75 mg/dL (60-115)
[2022-02-07 13:30] LABS: Anion Gap 13 (12-20); Blood Urea Nitrogen 22 mg/dL (9-16); Calcium 8.6 mg/dL (8.4-10.2); Carbon Dioxide 24 mmol/L (22-29); Chloride 113 mmol/L (96-108); Creatinine Clr Calc Pharmacy 53.3; Estimated Glomerular Filt Rate > 60; Glucose Random 83 mg/dL (60-115); Potassium 4.5 mmol/L (3.3-5.1); Sodium 145 mmol/L (135-145)
--- NOTE | 2022-02-07 14:37 | PC.NURSE ---
pt repositioned to his right sided with pillows in between his legs because pt keeps crossing his legs over and noticeable redness areas on the heel and knee area, areas are blanchable at this time, vs stable
[2022-02-07] MEDS: bisacodyL 10 MG SUPP.RECT PR (14:43)
--- NOTE | 2022-02-07 16:41 | PC.NURSE ---
pt had another small loose stool, pt repositioned to his left side, vs stable, pt has a wet intermittent cough, pt does require suctioning at times of dark brown frothy sputum
[2022-02-07 16:43] LABS: Glucose, Whole Blood 72 mg/dL (60-115)
[2022-02-07 19:26] LABS: Anion Gap 17 (12-20); Blood Urea Nitrogen 21 mg/dL (9-16); Calcium 8.4 mg/dL (8.4-10.2); Carbon Dioxide 18 mmol/L (22-29); Chloride 112 mmol/L (96-108); Creatinine Clr Calc Pharmacy 53.3; Estimated Glomerular Filt Rate > 60; Glucose Random 72 mg/dL (60-115); Potassium 4.5 mmol/L (3.3-5.1); Sodium 142 mmol/L (135-145)
[2022-02-07] MEDS: levETIRAcetam in NaCl (iso-os) 500 MG/100 ML PIGGYBACK 200 MG IV (22:35)
[2022-02-08] VITALS (7 sets, daily range): BP systolic 113–157; BP diastolic 60–103; PULSE 80–105; RESP 15–20; TEMP 35.8–36.4; O2SAT 92–100
[2022-02-08] MEDS: Piperacillin Sodium/Tazobactam 3.375 GM in 0.9 % Sodium Chloride 50 ML IV ×3 (03:48→16:24)
[2022-02-08] MEDS: Dextrose 5 % 1,000 ML 100 ML IVCONT ×2 (03:49→19:44)
[2022-02-08 06:10] LABS: Hemoglobin 10.5 g/dl (14.0-18.0); PLT CLUMP 1
[2022-02-08 06:11] LABS: Hematocrit 32.1 % (42.0-52.0); Mean Corpuscular HGB Conc 32.7 g/dl (31.0-36.0); Mean Corpuscular Hemoglobin 28.1 pg (27.0-33.0); Mean Corpuscular Volume 85.8 fL (80.0-98.0); Mean Platelet Volume 10.8 fL (9.4-12.4); Red Blood Count 3.74 X10*6/uL (4.60-5.80); Red Cell Distribution Width 16.4 % (11.0-16.0)
[2022-02-08 06:23] LABS: Platelet Count 117 X10*3/uL (160-400); White Blood Count 6.2 X10*3/uL (4.8-10.8)
--- NOTE | 2022-02-08 10:41 | PHA.PROG ---
Admission Date/Time: February 06, 2022 22:43 Indication: Skin and Soft Tissue Weight in k.4 kg Adjusted body weight in Kg: [place] body weight in Kg: Obesity Dosing Indication % IBW: Serum Creatinine - Last 168 Hours 02/06/22 02/07/22 02/07/22 17:12 07:32 13:01 Creatinine 1.07 0.93 0.93 02/07/22 19:05 Creatinine 0.93 Estimated CrCl and GFR - Last 168 Hours 02/06/22 02/07/22 02/07/22 17:12 07:32 13:01 Estim Creat Clear Calc 46.3 53.3 53.3 Estimated GFR > 60 > 60 > 60 02/07/22 19:05 Estim Creat Clear Calc 53.3 Estimated GFR > 60 Vancomycin Loading Dose: 1500 mg Current Vancomycin Dosing Regimen: 1250 mg Q24H Vancomycin Monitoring using AUC goal of 400 - 600 range with trough as surrogate marker: Model predicts a AUC of 479 and trough of 14.1. I will continue to monitor the renal function and next trough is set for 02/11 @ 0900. Date and Time for next Vancomycin Level to be drawn: 02/11 @ 0900 Pharmacist Comments on Vancomycin Plan: Vancomycin dosing will take advantage of [employer] as a clinical decision support tool that uses Bayesian modeling to calculate individual patient's pharmacokinetic parameters and forecast the patient's drug concentration time course with the target goal AUC 24 range of 400 - 600 mg/L/hr.
[2022-02-08 11:15] LABS: Creatinine Clr Calc Pharmacy 57.7; Estimated Glomerular Filt Rate > 60
--- NOTE | 2022-02-08 11:23 | P.CDIC_ITS ---
CDI Concurrent Query Documentation Clarification: PHYSICIAN'S DOCUMENTATION REQUEST Date of Query: 02/08/22 1124 Patient Name: Juan Sanders Admit Date: 02/06/22 Dear Doctor, A review of the medical record indicates additional documentation may be needed. Please review below and update the documentation accordingly. Clinical Indicators: Risk Factors/Clinical Indicators/Treatments ED: 02/06 - Dementia, patient is very combative with staff, altered mental status, confused. H&P: Not following commands, combative, altered, swinging at staff, demented. Based on the above, could you clarify in the Progress Notes which, if any of the following, is the most likely etiology of the confusion/altered mental status? * Encephalopathy - metabolic, toxic, septic, alcoholic, hypertensive, etc. * Dementia - indicate type of dementia, such as Alzheimer's, senile, vascular, Lewy body, etc. * Baseline dementia - indicate type, such as Alzheimer's, senile, vascular, Lewy body, etc., and any associated behavioral disturbances (aggressive, combative, or violent behavior) * Acute or subacute confusional state due to * Other etiology * Unable to determine Use of terms such as suspected, likely, concern for, or probable (associated with a specific diagnosis that is being evaluated, monitored, or treated as if it exists) are acceptable and can be coded in the inpatient setting, when documented at the time of discharge. Thank you, Sarah Sandra [facility], CDIS Extension: [phone] Please use your independent medical judgment in providing your response. THIS QUERY IS PART OF THE PERMANENT MEDICAL RECORD Provider Response: Metabolic Encephalopathy
[2022-02-08] MEDS: Heparin Sodium,Porcine 5,000 UNIT/ML VIAL 5000 UNIT SUBCUT (11:48)
[2022-02-08] MEDS: levETIRAcetam in NaCl (iso-os) 500 MG/100 ML PIGGYBACK 400 MG IV (11:48)
--- NOTE | 2022-02-08 12:18 | PM.CNGS ---
History of Present Illness Consult details Consult date: 02/08/22 Narrative: 82-year-old male referred for constipation and possible stercoral colitis. He was brought to the ER from [facility] last 02/06/2022 because of altered mental status with possible aspiration. He is of difficult historian and is not currently communicative. Thishis seems to be close to his baseline. He did have a CT scan of the abdomen done admission showing heavy stool volume in the colon and the rectum with a question of pneumatosis. A repeat CT scan done did not reveal any pneumatosis or any other acute GI pathology. He did have some thickening of the colon wall Suggestive of stercoral colitis was consulted. Again, he does not seem to be capable of providing any history. Review of Systems Review of Systems: not available in view of patient's mental status Constitutional: Constitutional: Denies chills and Denies fever(s) PMFSH Past Medical History Medical History COPD (chronic obstructive pulmonary disease) Dementia Malignant neoplasm of prostate Prostate cancer Schizophrenia Family History Family History Other Family history unknown Social History Social History Household Members: Other Housing: [facility] Do you presently have visiting nurse or other home services: No (from snf) Unable to assess alcohol history related to: Unable to respond Alcohol intake: unknown Patient Tobacco Use Status: Tobacco use Unknown service: No Meds Allergies Allergy/AdvReac Type Severity Reaction Status Date / Time No Known Allergies Allergy Unverified 06/19/20 17:10 [No Known Allergies*] Active Medications: Current Medications Acetaminophen (Acetaminophen Supp 650 Mg Supp.Rect) 650 mg [place] Q6H PRN PRN Reason: Pain, Mild (Pain Scale 1-3) Al Hydroxide/Mg Hydroxide (Magnesium Hydrox/Alum Hydrox 30 Ml Oral.Susp) 30 ml PO Q4H PRN PRN Reason: Indigestion Aspirin (Aspirin 81 Mg Tab.Chew) 81 mg PO DAILY [facility] Last Admin: 02/08/22 08:56 Dose: Not Given Documented by: Atorvastatin Calcium (Atorvastatin Calcium 20 Mg Tablet) 20 mg PO BEDTIME [facility] Last Admin: 02/07/22 21:12 Dose: Not Given Documented by: Bisacodyl (Bisacodyl 10 Mg Supp.Rect) 10 mg IN BID [facility] Last Admin: 02/08/22 08:56 Dose: Not Given Documented by: Chlorpromazine HCl (Chlorpromazine Hcl 25 Mg Tablet) 50 mg PO BID [facility] Last Admin: 02/08/22 08:56 Dose: Not Given Documented by: Chlorpromazine HCl (Chlorpromazine Hcl 25 Mg Tablet) 25 mg PO BID [facility] Last Admin: 02/08/22 08:56 Dose: Not Given Documented by: Dextrose (Dextrose 50 % 25 Gm/50 Ml Syringe) 25 gm IVPUSH Q15M PRN; Protocol PRN Reason: per Hypoglycemia Standing Ord. Diazepam (Diazepam 2 Mg Tablet) 2 mg PO Q12H PRN PRN Reason: Agitation Docusate Sodium (Docusate Sodium 100 Mg Capsule) 200 mg PO DAILY [facility] Last Admin: 02/08/22 08:56 Dose: Not Given Documented by: Gabapentin (Gabapentin 100 Mg Capsule) 100 mg PO BID [facility] Last Admin: 02/08/22 08:56 Dose: Not Given Documented by: Heparin Sodium (Porcine) (Heparin Sodium,Porcine 5,000 Unit/Ml Vial) 5,000 unit SUBCUT Q12H [facility] Last Admin: 02/08/22 11:48 Dose: 5,000 unit Documented by: Dextrose (D5w) 1,000 mls @ 75 mls/hr IVCONT .[id number] [facility] Last Admin: 02/08/22 03:49 Dose: 100 mls/hr Documented by: Piperacillin Sod/Tazobactam (Sod 3.375 gm/ Sodium Chloride) 50 mls @ 100 mls/hr IV Q6H [facility] Last Infusion: 02/08/22 09:30 Dose: Infused Documented by: Levetiracetam (Keppra) 500 mg in 100 mls @ 400 mls/hr IV Q12H [facility] Last Admin: 02/08/22 11:48 Dose: 400 mls/hr Documented by: Vancomycin HCl 1,250 mg/ (Sodium Chloride) 250 mls @ 166.667 mls/hr IV Q24H [facility] Lactulose (Lactulose 20 Gm/30 Ml Solution) 30 gm PO BID [facility] Last Admin: 02/08/22 08:56 Dose: Not Given Documented by: Levothyroxine Sodium (Levothyroxine Sodium 75 Mcg Tablet) 75 mcg PO DAILY@0600 [facility] Last Admin: 02/08/22 05:08 Dose: Not Given Documented by: Loperamide HCl (Loperamide Hcl 2 Mg Capsule) 2 mg PO Q8H PRN PRN Reason: Diarrhea Magnesium Hydroxide (Milk Of Magnesia 30 Ml Oral.Susp) 30 ml PO DAILY PRN PRN Reason: Constipation Metoclopramide HCl (Metoclopramide Hcl 10 Mg Tablet) 10 mg PO BID [facility] Last Admin: 02/08/22 08:57 Dose: Not Given Documented by: Metoprolol Tartrate (Metoprolol Tartrate 5 Mg/5 Ml Vial) 5 mg IVPUSH Q6H [facility] Multivitamins/Vitamin C (Multivitamin Tablet) 1 tab PO DAILY [facility] Last Admin: 02/08/22 08:57 Dose: Not Given Documented by: Omeprazole (Omeprazole 20 Mg Capsule.Dr) 20 mg PO BID@0630,1630 [facility] Last Admin: 02/08/22 05:08 Dose: Not Given Documented by: Ondansetron HCl (Ondansetron Hcl 4 Mg/2 Ml Vial) 4 mg IVPUSH Q8H PRN PRN Reason: Nausea and Vomiting Last Admin: 02/07/22 08:16 Dose: 4 mg Documented by: Propranolol HCl (Propranolol Hcl 20 Mg Tablet) 20 mg PO TID [facility]; Protocol Last Admin: 02/08/22 08:57 Dose: Not Given Documented by: Senna (Sennosides 8.6 Mg Tablet) 8.6 mg PO DAILY PRN PRN Reason: Constipation Senna (Sennosides 8.6 Mg Tablet) 17.2 mg PO BID [facility] Last Admin: 02/08/22 08:57 Dose: Not Given Documented by: Tamsulosin HCl (Tamsulosin Hcl 0.4 Mg Capsule) 0.4 mg PO DAILY@1900 [facility] Last Admin: 02/07/22 21:11 Dose: Not Given Documented by: Tramadol HCl (Tramadol Hcl 50 Mg Tablet) 50 mg PO Q8H PRN PRN Reason: Pain (Scale Score 4-6) Home Medications Medication Instructions Recorded Confirmed Last Taken Type acetaminophen 325 mg tablet 650 mg PO Q4H PRN 12/30/21 02/06/22 Unknown History aluminum-mag hydroxide-simethicone 30 ml PO Q4H PRN 12/30/21 02/06/22 Unknown History 200 mg-200 mg-20 mg/5 mL oral susp atorvastatin 20 mg tablet 20 mg PO BEDTIME 12/30/21 02/06/22 02/05/22 History bisacodyl 10 mg rectal suppository 10 mg IN DAILY PRN 12/30/21 02/06/22 Unknown History bisacodyl 5 mg tablet 5 mg PO DAILY 12/30/21 02/06/22 02/06/22 History chlorpromazine 25 mg tablet 25 mg PO BID 12/30/21 02/06/22 02/06/22 History chlorpromazine 50 mg tablet 50 mg PO BID 12/30/21 02/06/22 02/06/22 History esomeprazole magnesium 40 mg 40 mg PO BID 12/30/21 02/06/22 02/06/22 History capsule,delayed release (Nexium) gabapentin 100 mg capsule 100 mg PO BID 12/30/21 02/06/22 02/06/22 History haloperidol decanoate 50 mg/mL 10 mg IM Q14D 12/30/21 02/06/22 01/25/22 History intramuscular solution (Haldol Decanoate) ibuprofen 600 mg tablet 600 mg PO Q6H PRN 12/30/21 02/06/22 Unknown History lactulose 10 gram/15 mL oral 20 g PO BID 12/30/21 02/06/22 02/06/22 History solution loperamide 2 mg capsule 2 mg PO Q8H PRN 12/30/21 02/06/22 Unknown History multivitamin 1 tab PO DAILY 12/30/21 02/06/22 02/06/22 History ondansetron 4 mg disintegrating 4 mg PO Q4H PRN 12/30/21 02/06/22 Unknown History tablet propranolol 20 mg tablet 20 mg PO TID 12/30/21 02/06/22 02/06/22 History sennosides 8.6 mg tablet (senna) 8.6 mg PO DAILY PRN 12/30/21 02/06/22 Unknown History sennosides 8.6 mg-docusate sodium 2 tab-cap PO BID 12/30/21 02/06/22 02/06/22 History 50 mg tablet (Senna Plus) tamsulosin 0.4 mg capsule 0.4 mg PO DAILY@1900 12/30/21 02/06/22 02/05/22 History tramadol 50 mg tablet 50 mg PO BID 12/30/21 02/06/22 02/06/22 History tramadol 50 mg tablet 50 mg PO Q8H PRN 12/30/21 02/06/22 Unknown History diazepam 2 mg tablet 2 mg PO Q12H PRN 02/06/22 02/06/22 Unknown History levothyroxine 75 mcg tablet 75 mcg PO DAILY 02/06/22 02/06/22 02/06/22 History metoclopramide HCl 10 mg tablet 10 mg PO BID 02/06/22 02/06/22 02/06/22 History Physical Exam Vital Signs: Vital Signs: Last Vital Signs Temp 97.3 F 02/08/22 07:25 Pulse 100 02/08/22 07:25 Resp 18 02/08/22 07:25 BP 147/60 H 02/08/22 07:25 Pulse Ox 95 02/08/22 07:25 BMI result Body Mass Index 26.1 Const: Other: not conversant, confused, General: comfortable and no acute distress Resp: Effort & Inspection: normal respiratory effort Cardio: Rhythm: abnormal rhythm GI: Other: soft, nondistended, no obvious tenderness or guarding Results Labs Result diagrams: 02/08/22 05:46 02/09/22 06:42 Labs: Abnormal lab results 02/07/22 02/07/22 02/08/22 Range/Units 13:01 19:05 05:46 RBC 3.74 L (4.60-5.80) X10*6/uL Hgb 10.5 L (14.0-18.0) g/dl Hct 32.1 L (42.0-52.0) % RDW 16.4 H (11.0-16.0) % Plt Count 117 L (160-400) X10*3/uL Absolute Nucleated RBC 0.060 H (0.0-0.012) X10*3/uL Nucleated RBC % (auto) 1.0 H (0.0-0.2) /100WBC Chloride 113 H 112 H (96-108) mmol/L Carbon Dioxide 18 L (22-29) mmol/L BUN 22 H 21 H (9-16) mg/dL Short CBC 02/08/22 Range/Units 05:46 WBC 6.2 (4.8-10.8) X10*3/uL Hgb 10.5 L (14.0-18.0) g/dl Hct 32.1 L (42.0-52.0) % Plt Count 117 L (160-400) X10*3/uL BMP 02/07/22 02/07/22 02/08/22 13:01 19:05 05:46 Sodium 145 142 Potassium 4.5 4.5 Chloride 113 H 112 H Carbon Dioxide 24 18 L BUN 22 H 21 H Creatinine 0.93 0.93 0.86 Calcium 8.6 8.4 Urine 02/06/22 Range/Units 17:59 Urine Color YELLOW Urine Appearance CLEAR Urine pH 5.5 (5.0-8.0) Ur Specific [place] >= 1.030 H (1.005-1.025) Urine Protein TRACE (NEG-TRACE) MG/DL Urine Glucose (UA) NEG (NEG) MG/DL All other labs normal. Assessment and Plan (1) Constipation: Status: Acute I have reviewed his CAT scan and this does show a heavy stool volume in the colon and rectum syndrome with constipation. Furthermore, there is some thickening of the colon wall consistent with stercoral colitis. I agree with giving him enemas at this time. He may need to be on oral laxatives as well. His overall baseline level of function is poor otherwise. He does have a benign exam at this time. I will follow along while he is in the hospital. Procedures Date of Service Date of Service: 02/08/22
--- NOTE | 2022-02-08 12:43 | MHC.CM.PN ---
Addendum entered by Breanna Sorensen 02/08/22 15:30: FAX NUMBER FOR SHANEKA MORE: [phone] Addendum entered by Breanna Sorensen 02/08/22 15:26: CM ATTEMPTED TO CONTACT PTS GUARDIAN, SHANEKA OLIVAGAGANDEEP [phone] HOWEVER HER VM PICKED UP AND MAILBOX WAS FULL. VM MESSAGE DID PROVIDE A FAX NUMBER. PTS MEDICARE RIGHTS WERE FAXED WELL A MESSAGE INFORMING HER HE IS INPT. DCP REMAINS, RETURN TO [facility]IA BLS Original Note: CM RECEIVED A CALL FROM PTS NIECE, JUSTIN, WHO WAS LOOKING FOR AN UPDATE ON PTS MEDICAL STATUS. SHE REPORTS SHE IS THE ONLY FAMILY LEFT. CM INFORMED HER SHE WAS NOT LISTED, ONLY CLARICE CARTER AND THE LEGAL GUARDIAN. SHE REPORTS CLARICE WAS HER MOTHER BUT HAS PASSED. SHE ASKS THAT HER CONTACT INFO BE ADDED TO PTS CHART IN CASE SOMETHING WERE TO HAPPEN TO THE PT. JUSTIN CARTER [facility] [id number] [facility] [id number] CM WILL CONTACT GUARDIAN TO DELIVER PTS MEDICARE RIGHTS AND INFORM HER OF POTENTIAL DC TOMORROW DCP, RETURN TO [facility] VIA BLS LEGAL GUARDIAN: SHANEKA MORE [phone]
[2022-02-08] MEDS: Metoprolol Tartrate 5 MG/5 ML VIAL IVPUSH (13:06)
[2022-02-08] MEDS: vancomycin HCL 1,500 MG in 0.9 % Sodium Chloride 500 ML 333.33 MG IV (13:07)
--- NOTE | 2022-02-08 14:48 | P.PNIM_ITS ---
Subjective Subjective Date of Service: 02/08/22 Interval History: Seens and evaluated this morning , Nonverbal, responsive to stimuli Unable to tolerate diet Review of Systems Non verbal to communicate Physical Exam Vital Signs: Vital Signs: Last Vital Signs Temp 97.5 F 02/08/22 12:00 Pulse 100 02/08/22 12:00 Resp 20 02/08/22 12:00 BP 148/75 H 02/08/22 12:00 Pulse Ox 95 02/08/22 12:00 BMI result Body Mass Index 26.1 Const: Other: Constitutional : Altered, responsive to physical stimuli, on oxygen supplement Neck : Normal inspection, Supple Cardiovascular : RRR, no JVP, no lower extremity edema Respiratory : fair bilateral air entry, basal crackles, wheezes or rhonchi Gastrointestinal: soft, lax, Normal bowel sounds, distended, Non tender Skin : Warm, Dry, left upper extremity cellulitis Neurological : Altered mentation, open eyes to physical stimuli , unable to assess any focal deficit Objective Data Active Medications Acetaminophen (Acetaminophen Supp 650 Mg Supp.Rect) 650 mg [place] Q6H PRN PRN Reason: Pain, Mild (Pain Scale 1-3) Al Hydroxide/Mg Hydroxide (Magnesium Hydrox/Alum Hydrox 30 Ml Oral.Susp) 30 ml PO Q4H PRN PRN Reason: Indigestion Aspirin (Aspirin 81 Mg Tab.Chew) 81 mg PO DAILY [facility] Last Admin: 02/08/22 08:56 Dose: Not Given Documented by: LISBET Non-Admin Reason: aspiration risk Atorvastatin Calcium (Atorvastatin Calcium 20 Mg Tablet) 20 mg PO BEDTIME [facility] Last Admin: 02/07/22 21:12 Dose: Not Given Documented by: TATYANA Non-Admin Reason: drowsy, unsafe Bisacodyl (Bisacodyl 10 Mg Supp.Rect) 10 mg [place] BID [facility] Last Admin: 02/08/22 08:56 Dose: Not Given Documented by: LISBET Non-Admin Reason: to have SSE Chlorpromazine HCl (Chlorpromazine Hcl 25 Mg Tablet) 50 mg PO BID [facility] Last Admin: 02/08/22 08:56 Dose: Not Given Documented by: LISBET Non-Admin Reason: aspiration risk Chlorpromazine HCl (Chlorpromazine Hcl 25 Mg Tablet) 25 mg PO BID [facility] Last Admin: 02/08/22 08:56 Dose: Not Given Documented by: LISBET Non-Admin Reason: aspiration risk Dextrose (Dextrose 50 % 25 Gm/50 Ml Syringe) 25 gm IVPUSH Q15M PRN; Protocol PRN Reason: per Hypoglycemia Standing Ord. Diazepam (Diazepam 2 Mg Tablet) 2 mg PO Q12H PRN PRN Reason: Agitation Docusate Sodium (Docusate Sodium 100 Mg Capsule) 200 mg PO DAILY [facility] Last Admin: 02/08/22 08:56 Dose: Not Given Documented by: LISBET Non-Admin Reason: aspiration risk Gabapentin (Gabapentin 100 Mg Capsule) 100 mg PO BID [facility] Last Admin: 02/08/22 08:56 Dose: Not Given Documented by: LISBET Non-Admin Reason: aspiration risk Heparin Sodium (Porcine) (Heparin Sodium,Porcine 5,000 Unit/Ml Vial) 5,000 unit SUBCUT Q12H [facility] Last Admin: 02/08/22 11:48 Dose: 5,000 unit Documented by: LISBET Dextrose (D5w) 1,000 mls @ 75 mls/hr IVCONT .[id number] [facility] Last Admin: 02/08/22 03:49 Dose: 100 mls/hr Documented by: TATYANA Piperacillin Sod/Tazobactam (Sod 3.375 gm/ Sodium Chloride) 50 mls @ 100 mls/hr IV Q6H [facility] Last Infusion: 02/08/22 09:30 Dose: 0 mls/hr Documented by: LISBET Levetiracetam (Keppra) 500 mg in 100 mls @ 400 mls/hr IV Q12H [facility] Last Infusion: 02/08/22 12:50 Dose: 0 mls/hr Documented by: LISBET Vancomycin HCl 1,250 mg/ (Sodium Chloride) 250 mls @ 166.667 mls/hr IV Q24H [facility] Lactulose (Lactulose 20 Gm/30 Ml Solution) 30 gm PO BID [facility] Last Admin: 02/08/22 08:56 Dose: Not Given Documented by: LISBET Non-Admin Reason: aspiration risk Levothyroxine Sodium (Levothyroxine Sodium 75 Mcg Tablet) 75 mcg PO DAILY@0600 [facility] Last Admin: 02/08/22 05:08 Dose: Not Given Documented by: TATYANA Non-Admin Reason: unsafe for po Loperamide HCl (Loperamide Hcl 2 Mg Capsule) 2 mg PO Q8H PRN PRN Reason: Diarrhea Magnesium Hydroxide (Milk Of Magnesia 30 Ml Oral.Susp) 30 ml PO DAILY PRN PRN Reason: Constipation Metoclopramide HCl (Metoclopramide Hcl 10 Mg Tablet) 10 mg PO BID [facility] Last Admin: 02/08/22 08:57 Dose: Not Given Documented by: LISBET Non-Admin Reason: aspiration risk Metoprolol Tartrate (Metoprolol Tartrate 5 Mg/5 Ml Vial) 5 mg IVPUSH Q6H [facility] Last Admin: 02/08/22 13:06 Dose: 5 mg Documented by: LISBET Multivitamins/Vitamin C (Multivitamin Tablet) 1 tab PO DAILY [facility] Last Admin: 02/08/22 08:57 Dose: Not Given Documented by: LISBET Non-Admin Reason: aspiration risk Omeprazole (Omeprazole 20 Mg Capsule.) 20 mg PO BID@0630,1630 [facility] Last Admin: 02/08/22 05:08 Dose: Not Given Documented by: TATYANA Non-Admin Reason: unsafe for po Ondansetron HCl (Ondansetron Hcl 4 Mg/2 Ml Vial) 4 mg IVPUSH Q8H PRN PRN Reason: Nausea and Vomiting Last Admin: 02/07/22 08:16 Dose: 4 mg Documented by: VALDO Propranolol HCl (Propranolol Hcl 20 Mg Tablet) 20 mg PO TID [facility]; Protocol Last Admin: 02/08/22 08:57 Dose: Not Given Documented by: LISBET Non-Admin Reason: aspiration risk Senna (Sennosides 8.6 Mg Tablet) 8.6 mg PO DAILY PRN PRN Reason: Constipation Senna (Sennosides 8.6 Mg Tablet) 17.2 mg PO BID [facility] Last Admin: 02/08/22 08:57 Dose: Not Given Documented by: LISBET Non-Admin Reason: aspiration ris Tamsulosin HCl (Tamsulosin Hcl 0.4 Mg Capsule) 0.4 mg PO DAILY@1900 [facility] Last Admin: 02/07/22 21:11 Dose: Not Given Documented by: TATYANA Non-Admin Reason: drowsy, unsafe Tramadol HCl (Tramadol Hcl 50 Mg Tablet) 50 mg PO Q8H PRN PRN Reason: Pain (Scale Score 4-6) Labs CBC & Chem 7: 02/08/22 05:46 02/08/22 05:46 Labs: Laboratory Results - last 24 hr 02/07/22 02/07/22 02/08/22 16:39 19:05 05:46 MCV 85.8 MCH 28.1 MCHC 32.7 RDW 16.4 H Plt Count 117 L MPV 10.8 Absolute Nucleated RBC 0.060 H Nucleated RBC % (auto) 1.0 H Anion Gap 17 Estim Creat Clear Calc 53.3 Estimated GFR > 60 POC Glucose 72 Random Glucose 72 Calcium 8.4 02/08/22 05:46 MCV MCH MCHC RDW Plt Count MPV Absolute Nucleated RBC Nucleated RBC % (auto) Anion Gap Estim Creat Clear Calc 57.7 Estimated GFR > 60 POC Glucose Random Glucose Calcium Microbiology Microbiology Results: Microbiology 02/06/22 17:11 Gram Stain - Final Elbow Routine Culture - Preliminary Staphylococcus species Strep agalactiae (Grp B) 02/06/22 17:39 Blood Culture - Preliminary Blood - Venous No growth after 24 hours. 02/06/22 17:12 Blood Culture - Preliminary Blood - Venous No growth after 24 hours. Assessment and Plan (1) Constipation: Status: Acute (2) Sepsis: Status: Acute (3) Cellulitis of forearm, left: Status: Acute (4) Atrial fibrillation with rapid ventricular response: Status: Acute (5) Pneumonia: Status: Acute Plan This is an 82-year-old male with past medical history of AFib, COPD, prostate cancer, schizophrenia, enough [employer] who comes into the hospital with altered mental status found to have multiple she abnormalities as below # sepsis 2/2 Aspiration pneumonia and cellulitis likely multifactorial secondary to pneumonia as well as cellulitis of forearm IV antibiotic of vancomycin Zosyn follow cultures, wound culture # hypothermia resolved secondary to sepsis continue antibiotics # sterocolitis/severe constipation initial CT showed possible pneumatosis coli follow-up CT angiogram was negative for pneumatosis appears to have fecal impaction given enema and had small bowel movement Surgery input appreciated, continue enemas # AFib with RVR secondary to above On propranolol, to hold Use metoprolol IV while NPO # metabolic encephalopathy Secondary to infection, constipation, other etiologies Treat underlying infection and constipation Recurrent treated reaction # swallowing problem Secondary to altered mentation To get speech therapy eval before starting any diet lactic acidosis Secondary to infection Continue IV fluids # schizophrenia continue antipsychotics DVT prophylaxis Heparin subQ The patient will need to stay overnight in the hospital to continue evaluation and treatment of sepsis and aspiration pneumonia pending final blood culture results giving high chance of decompensation in to severe sepsis. Quality Stroke Does the patient have a stroke diagnosis?: No VTE Prior VTE?: No VTE Risk Level:: Medical - moderate - high VTE Device Contraindication: Treatment Not Indicated VTE Drug Contraindication: N/A - Med Ordered
--- NOTE | 2022-02-08 15:11 | MHC.SL.SWA ---
Speech Pathologist Impression: Oropharyngeal dysphagia Risk of Aspiration Due to: Lethargy History of Pneumonia Dysphasia Diet Status: Upgrade from NPO Liquid Consistency and Strategies for Safe Swallow: Liquid Intake Recommendation: Honey Thick Liquid Intake Strategies: Small Sips Liquids by Teaspoon Only Solid Food Consistency: Dietary Recommendations: Pureed (NDD1) Additional Modifications to Solid Foods: Recommend start patient on PUREED (NDD1) solids 1/2 teaspoon bites and HONEY THICK liquids by teaspoon only, pills CRUSHED in PUREE. Patient requires total 1:1 assistance feeding. Continue strict aspiration precautions, close monitoring of tolerance. May need to hold tray depending on mental status/ lethargy. Sent update to MD, RN, RD via [facility]. FASTENER TECHNOLOGIST to f/u tomorrow. Oral Medication Intake: Crushed with Puree Please contact the pharmacy regarding appropriate crushable or liquid drug formulations that are available whenever modified delivery is recommended. Compensatory Strategies and Precautions to be Taken for Safe Swallow: Sitting Upright (90 deg) No Straw Liquids from Spoon Small Bites and Sips Alternate Liquids/Solids Rate of Ingestion Change Oral Check Supervision While Eating and Drinking for Safe Swallow: Total Assistance (1:1) Swallowing Recommended Treatments: Compens. Strategy Educat. Recommendation for Speech: Inpatient Speech Therapy Speech Therapy through Rehab Facility Comment: Recommend continue speech therapy for dysphagia at next level of care. Frequency/Duration: Date Range for Service Req: Timeline to reassess: Silver Recovery Operator Clinican/Clinical Fellow: No Supervisory Statement: I have reviewed and agree with the student/clinical fellow's documentation: N/A Speech Language Pathologist: Halle Mccarthy M.A., CCC-FASTENER TECHNOLOGIST
--- NOTE | 2022-02-08 16:12 | MHC.CLN ---
NUTRITION CONSULT FOR SKIN INTEGRITY. HAS BLISTER UNDER LEFT FOOT. WEIGHT HISTORY SHOWS NO SIGNIFICANT WEIGHT CHANGE X 1 YEAR. NPO X 2 DAYS. SEEN BY SHOEMAKER CUSTOM TODAY. DIET=2 GRAM SODIUM, PUREE, HONEY THICK LIQUIDS. ASPIRATION PRECAUTIONS AND TOTAL ASSISTANCE WITH FEEDING. RD TO FOLLOW FOR DIET ORDER AND INTAKE.
[2022-02-08] MEDS: Metoprolol Tartrate 10 MG in 0.9 % Sodium Chloride 50 ML 240 MG IV (18:24)
[2022-02-08] MEDS: Omeprazole 20 MG CAPSULE.DR PO (18:25)
[2022-02-09] VITALS: BP 122/72; PULSE 101; RESP 22; TEMP 36.7
[2022-02-09] MEDS: levETIRAcetam in NaCl (iso-os) 500 MG/100 ML PIGGYBACK 420 MG IV (00:18)
[2022-02-09] MEDS: Lactulose 20 GM/30 ML SOLUTION 30 GM PO (00:20)
[2022-02-09] MEDS: Metoclopramide HCl 10 MG TABLET PO ×2 (00:21→10:27)
[2022-02-09] MEDS: chlorproMAZINE HCl 25 MG TABLET PO ×2 (00:21→10:27)
[2022-02-09] MEDS: Sennosides 8.6 MG TABLET 17.2 MG PO ×2 (00:22→10:29)
[2022-02-09] MEDS: Heparin Sodium,Porcine 5,000 UNIT/ML VIAL 5000 UNIT SUBCUT ×2 (00:23→10:33)
[2022-02-09] MEDS: Atorvastatin Calcium 20 MG TABLET PO (00:23)
[2022-02-09] MEDS: bisacodyL 10 MG SUPP.RECT PR (00:23)
[2022-02-09] MEDS: Gabapentin 100 MG CAPSULE PO ×2 (00:28→10:27)
[2022-02-09] MEDS: Metoprolol Tartrate 10 MG in 0.9 % Sodium Chloride 50 ML 240 MG IV ×4 (01:38→17:35)
[2022-02-09 04:00] VITALS: BP 134/85; RESP 22; TEMP 36.3
[2022-02-09] MEDS: Piperacillin Sodium/Tazobactam 3.375 GM in 0.9 % Sodium Chloride 50 ML IV ×3 (04:10→15:26)
[2022-02-09 05:59] VITALS: PULSE 107
[2022-02-09 07:18] LABS: Anion Gap 13 (12-20); Blood Urea Nitrogen 22 mg/dL (9-16); Calcium 8.9 mg/dL (8.4-10.2); Carbon Dioxide 25 mmol/L (22-29); Chloride 110 mmol/L (96-108); Creatinine Clr Calc Pharmacy 47.2; Estimated Glomerular Filt Rate > 60; Glucose Random 64 mg/dL (60-115); Potassium 4.8 mmol/L (3.3-5.1); Sodium 143 mmol/L (135-145)
[2022-02-09 07:33] VITALS: BP 122/60; PULSE 100; RESP 16; TEMP 36.2; O2SAT 92
--- NOTE | 2022-02-09 07:44 | HE.PHANOTE ---
RE KRISTEN PT SCR 1.05 TODAY, 1250MG Q24H NOW PREDICTS AUC 499; TROUGH 14.9
[2022-02-09] MEDS: Dextrose 5 % 1,000 ML 100 ML IVCONT (10:20)
[2022-02-09] MEDS: chlorproMAZINE HCl 25 MG TABLET 50 MG PO (10:28)
[2022-02-09] MEDS: Aspirin 81 MG TAB.CHEW PO (10:28)
[2022-02-09] MEDS: Docusate Sodium 100 MG CAPSULE 200 MG PO (10:32)
[2022-02-09] MEDS: vancomycin HCL 1,250 MG in 0.9 % Sodium Chloride 250 ML 166.67 MG IV (11:09)
[2022-02-09] MEDS: levETIRAcetam in NaCl (iso-os) 500 MG/100 ML PIGGYBACK 400 MG IV (11:16)
[2022-02-09 11:39] VITALS: BP 130/67; PULSE 90; RESP 14; TEMP 36.1; O2SAT 90
--- NOTE | 2022-02-09 11:45 | P.DS_ITS ---
DS: Providers Provider Date of Service: 02/09/22 Date of admission: 02/06/22 22:43 Primary care physician: Unknown Physician Consults: 02/08/22 10:32 Consult to General Surgery Routine Consulting Provider: Michael De Leon Reason for consultation: Constipation, Colitis ? DS: Diagnosis Discharge Diagnosis (1) Constipation: Status: Resolved (2) Sepsis: Status: Resolved (3) Cellulitis of forearm, left: Status: Acute (4) Atrial fibrillation with rapid ventricular response: Status: Resolved (5) Pneumonia: Status: Resolved (6) Swallowing problem: Status: Acute DS: Summary Hospital Course Hospital Course: Admission note HPI Patient is completely confused therefore history is obtained from ED physician as well as chart? Patient comes in from [facility] sent to the hospital for possi ble dehydration/aspiration /altered mental status.? skilled nursing also noted the patient has history of bursitis and forearm cellulitis that was not healing on p.o. antibiotics.? On arrival of the patient he was found to be hypothermic I am unable to get much history from the patient as he is very confused and not following command.? Unable to complete review of system Vitals on arrival are significant for a temperature of 93.1 degrees, patient then developed tachycardia of 107, respiratory rate of 22, blood pressure remained stable Labs found to be significant for BC of 7.5, sodium of 146, lactic acid of 6.5, AST of 115, ALT of 138, UA negative EKG showed AFib with RVR Chest x-ray showed suggestive of bronchitis small airway disease, patchy opacity in the right per her middle lobe And initial Abdominal pelvic CT was done without contrast which showed excessive amount of stool in the colon suggestive of constipation, possible fecal impaction, air within the lumen of the colon wall suggesting pneumatosis coli and ischemia cannot be completely ruled out.? A CT angiogram of the abdomen pelvic was done which showed large volume of stool in the rectum with associated wall thickness suspicious for stercoral colitis, no convincing pneumatosis. Patient started on antibiotics and will be admitted for further management Hospital course The patient was admitted for treatment of sepsis secondary to aspiration pneumonia and left upper extremity cellulitis. Blood cultures grew a contaminant in 1 bottle was wound culture grew MRSA and GBS. Patient was treated with IV antibiotic of vancomycin and Zosyn as the hypothermia at time of presentation resolved and he became more alert and interactive. He was noticed as well to have severe constipation on a CT scan. CT angiogram was done with no evidence of ischemia. Evaluated by surgical team who recommended to continue enemas. The patient had multiple bowel movements as he add 3 and MS along with laxatives such as Dulcolax and Colace. Evaluated by speech therapy for difficulty breathing with recommendations for modified diet with thickened fluids. Developed AFib with RVR secondary to not taking his oral medications from altere d mentation, controlled with addition of metoprolol IV while NPO with better rate control less than 100. CT scan reporting possible adrenal hematoma that will need to be followed as outpatient with repeat images. Modified diet, pureed with honey thick liquids, full assistance with meals, aspiration precautions Continue Augmentin and Bactrim for 7 more days To use laxatives and suppositories on daily basis Do enema for the next 3 days daily Time Spent with Patient Time attestation: Total time spent providing and/or coordinating discharge services: Discharge coordination time: Greater than 30 minutes Quality: Safe Use of Opioids Does Pt have an Active Cancer Diagnosis on the Problem List?: No Quality: Stroke Does the patient have a stroke diagnosis?: No Physical Exam Vital Signs: Vital Signs: Last Vital Signs Temp 96.9 F 02/09/22 11:39 Pulse 90 02/09/22 11:39 Resp 14 02/09/22 11:39 BP 130/67 02/09/22 11:39 Pulse Ox 90 L 02/09/22 11:39 BMI result Body Mass Index 26.1 Const: Other: Constitutional : Alert, not in distress, does not follow commands on oxygen supplement Neck : Normal inspection, Supple Cardiovascular : RRR, no JVP, no lower extremity edema Respiratory : fair bilateral air entry, basal crackles, no wheezes or rhonchi Gastrointestinal: soft, lax, Normal bowel sounds, distended, Non tender Skin : Warm, Dry, left upper extremity cellulitis Neurological : Alert , unable to assess any focal deficit DS: Data Data Completed and Pending Labs on day of discharge: Laboratory Results - last 24 hr 02/06/22 02/09/22 17:12 06:42 Smear Path Review SEE NOTE Sodium 143 Potassium 4.8 Chloride 110 H Carbon Dioxide 25 Anion Gap 13 BUN 22 H Creatinine 1.05 Estim Creat Clear Calc 47.2 Estimated GFR > 60 Random Glucose 64 Calcium 8.9 Preliminary micro results at discharge 02/06/22 17:12 Blood Culture - Preliminary Blood - Venous Staphylococcus species 02/06/22 17:39 Blood Culture - Preliminary Blood - Venous No growth after [address] scan - abdomen: Radiologist's impression: ITS Impressions Chest X-Ray 02/06/22 18:03 IMPRESSION: Findings suggestive of bronchitis/small airway disease. Patchy opacity in the right parahilar middle lobe question bronchopneumonia. Abdomen/Pelvis CT 02/06/22 21:05 IMPRESSION: *Excessive amount of stool in the colon suggesting constipation, especially the rectum probably fecal impaction. * There is air within the lumen of the colon wall suggesting pneumatosis coli, nonspecific CT finding, CANNOT ENTIRELY RULE OUT THE POSSIBILITY OF ISCHEMIA. May consider correlation with follow-up CT angiogram. *Airspace opacification infiltrate presumably pneumonia at lower lobes. *Other noncritical findings described above unchanged. (Referring physician staff is being called, to be alerted of the above findings and recommendations.) Abdomen/Pelvis CTA 02/07/22 00:50 IMPRESSION: 1. Redemonstrated large volume of stool in the rectum with associated wall thickening, suspicious for stercoral colitis. 2. No convincing pneumatosis. Colonic diverticulosis. Moderate to large volume of stool throughout the colon. 3. Nodular density along the right adrenal gland appears increased in size from recent prior exam, suspicious for hematoma. Attention on follow-up is recommended. 4. Extensive atherosclerotic calcification of the aorta, with additional vascular findings detailed above. Penetrating atherosclerotic ulcer suspected in the infrarenal aorta. Discharge Plan Discharge Patient Disposition: [facility] Discharge Diagnosis: Pneumonia Left elbow cellulitis Constipation Altered mentation Referrals: [facility] [Outside] - 1 Week Physician,Unknown J [Physician] - 1 Week Discharge Medications: New docusate sodium 100 mg Capsule 200 mg PO DAILY 30 Days Qty: 60 0RF sulfamethoxazole-trimethoprim 800-160 mg tablet 1 tab PO BID Qty: 14 0RF Rx Instructions: x 7 days, finish 02/16/2022 amoxicillin-pot clavulanate 400-57 mg/5 mL suspension for reconstitution 10 ml PO BID 7 Days Qty: 140 0RF Rx Instructions: x 7 days, finished 02/16/2022 Continued acetaminophen 325 mg Tablet 650 mg PO Q4H PRN (Reason: PAIN/TEMP) 0RF atorvastatin 20 mg Tablet 20 mg PO BEDTIME 0RF bisacodyl 10 mg Suppository 10 mg NC DAILY PRN (Reason: Constipation) 0RF chlorpromazine 25 mg Tablet 25 mg PO BID 0RF Rx Instructions: TAKE TOGETHER WITH 50 MG DOSE FOR TOTAL DOSE OF 75 MG BID chlorpromazine 50 mg Tablet 50 mg PO BID 0RF Rx Instructions: TAKE TOGETHER WITH 25 MG DOSE, TO MAKE TOTAL DOSE OF 75 MG gabapentin 100 mg Capsule 100 mg PO BID 0RF haloperidol decanoate [Haldol Decanoate] 50 mg/mL Solution 10 mg IM Q14D 0RF ibuprofen 600 mg Tablet 600 mg PO Q6H PRN (Reason: Pain (Scale Score 4-6)) 0RF lactulose 10 gram/15 mL Solution 20 g PO BID 0RF loperamide 2 mg Capsule 2 mg PO Q8H PRN (Reason: Diarrhea) 0RF esomeprazole magnesium [Nexium] 40 mg Capsule,Delayed Release(Dr/Ec) 40 mg PO BID 0RF ondansetron 4 mg Tablet,Disintegrating 4 mg PO Q4H PRN (Reason: Nausea And Vomiting) 0RF multivitamin Tablet 1 tab PO DAILY 0RF propranolol 20 mg Tablet 20 mg PO TID 0RF alum-mag hydroxide-simeth 200-200-20 mg/5 mL Suspension 30 ml PO Q4H PRN (Reason: Indigestion) 0RF Rx Instructions: administer between meals and at bedtime sennosides [senna] 8.6 mg Tablet 8.6 mg PO DAILY PRN (Reason: Constipation) 0RF sennosides-docusate sodium [Senna Plus] 8.6-50 mg Tablet 2 tab-cap PO BID 0RF bisacodyl 5 mg Tablet 5 mg PO DAILY 0RF tamsulosin 0.4 mg Capsule 0.4 mg PO DAILY@1900 0RF tramadol 50 mg Tablet 50 mg PO BID 0RF tramadol 50 mg Tablet 50 mg PO Q8H PRN (Reason: Pain (Scale Score 4-6)) 0RF Rx Instructions: GIVE 8 HOURS APART FROM SCHEDULED DOSE aspirin 81 mg Tablet,Chewable 81 mg PO DAILY Qty: 30 0RF levothyroxine 75 mcg Tablet 75 mcg PO DAILY 0RF metoclopramide HCl 10 mg Tablet 10 mg PO BIDAC 0RF diazepam 2 mg Tablet 2 mg PO Q12H PRN (Reason: Agitation) 0RF No Action Santyl 250 unit/gram Ointment 1 appl TOPICAL DAILY 0RF Rx Instructions: APPLY TO LEFT ELBOW levetiracetam 100 mg/mL Solution 500 mg PO BID 0RF Discharge Orders: Discharge Order (Routine); Ordered 02/09/22 Ordered By: Matthew Nunez Diet: other Activity on Discharge: As tolerated Stand Alone Forms: Patient Portal Discharge page Care Plan Goals: Read below Health Concerns: Read below Plan of Treatment: Modified diet, pureed with honey thick liquids, full assistance with meals, aspiration precautions Assessment: You were admitted to the hospital for treatment of altered mentation. Images was consistent with severe constipation and evidence of aspiration pneumonia. Noticed to have left elbow cellulitis with drainage. Cultures grew MRSA & GBS. You were treated with IV antibiotics, enema as and laxatives with good response as you move your bowels and your oxygen requirement decreased. Continue Augmentin and Bactrim for 7 more days To use laxatives and suppositories on daily basis Do enema for the next 3 days daily Discharge Date/Time: 02/09/22 21:00
[2022-02-09 12:32] LABS: COVID-19 Test Negative (Negative)
--- NOTE | 2022-02-09 13:29 | MHC.CM.PN ---
ELIA MORE ([phone]) THIS DATA INTEGRATION ARCHITECT UNABLE TO LEAVE A VOICEMAIL, IT IS FULL. FAX NUMBER LEFT ON [facility]'S OUTGOING MESSAGE. IMM 02/09 TO BE FAXED TO NUMBER [id number]
--- NOTE | 2022-02-09 15:57 | MHC.SL.SWA ---
Speech Pathologist Impression: Risk of Aspiration Due to: Lethargy History of Pneumonia Dysphasia Diet Status: Liquid Consistency and Strategies for Safe Swallow: Liquid Intake Recommendation: Honey Thick Liquid Intake Strategies: Liquids by Teaspoon Only Solid Food Consistency: Dietary Recommendations: Pureed (NDD1) Additional Modifications to Solid Foods: Recommend continue patient on PUREED (NDD1) solids 1/2 teaspoon bites and HONEY THICK liquids by teaspoon only, pills CRUSHED in PUREE. Patient requires total 1:1 assistance feeding. Continue strict aspiration precautions, close monitoring of tolerance. May need to hold tray depending on mental status/ lethargy. Oral Medication Intake: Crushed with Puree Please contact the pharmacy regarding appropriate crushable or liquid drug formulations that are available whenever modified delivery is recommended. Compensatory Strategies and Precautions to be Taken for Safe Swallow: Sitting Upright (90 deg) No Straw Liquids from Spoon Small Bites and Sips Alternate Liquids/Solids Rate of Ingestion Change Oral Check Supervision While Eating and Drinking for Safe Swallow: Total Supervision (1:1) Foods to Avoid: [place] sticky solids. Swallowing Recommended Treatments: Compens. Strategy Educat. Recommendation for Speech: Inpatient Speech Therapy Speech Therapy through Rehab Facility Comment: Pt seen this p.m. for toleration of diet, re-assessment of swallow. Pt was reclined in bed, appeared to be sleeping but had eyes open, was responsive but quite lethargic throughout. Pt did verbalize but was first aphonic and difficulty to understand, then produced voice but continued to be difficult to understand. Pt noted to be SOB despite nasal cannula. Pt was positioned w/head of bed at 90 Degrees. Pt was offered tsps of Magic Cup pudding consistency by tsp, which was found at bedside. Pt took 1/2 tsp amount, with noted disorganized oral phase characterized by tongue pumping, mild delay initiating swallow, mildly reduced laryngeal elevation on swallow, w/ no clinical signs of aspiration on repeat presentations. Trials were discontinued due to concern re: level of engagement and alertness. Recommend Pt continue on current consistencies of PUREE w/ HONEY THICK LIQUIDS, Pills Crushed in PUREE, w/ full assist/supervision during all meals. Frequency/Duration: Date Range for Service Req: Timeline to reassess: Property Claim Rep Clinican/Clinical Fellow: No Supervisory Statement: I have reviewed and agree with the student/clinical fellow's documentation: N/A Speech Language Pathologist: Valentina Ashley M.A., [facility]
[2022-02-09 16:00] VITALS: BP 103/60; PULSE 80; RESP 28; TEMP 36.1; O2SAT 93
== END 2022-02-09 21:00 | DRG 871 ==
LOC: HO.ED 16:52 → HO.EDOVER 22:55 → HO.S3 02-07 18:29
PROVIDERS: Admitting Provider Internal Medicine; Emergency Provider Internal Medicine; PCP Hospitalist; Visit Provider Student in an Organized Health Care Education/Training Program
DX: A41.9 Sepsis, unspecified organism (principal); J69.0 Pneumonitis due to inhalation of food and vomit; G93.41 Metabolic encephalopathy; L03.114 Cellulitis of left upper limb; E87.2 Acidosis; F20.9 Schizophrenia, unspecified; K56.41 Fecal impaction; I48.91 Unspecified atrial fibrillation; K52.89 Other specified noninfective gastroenteritis and colitis; R13.10 Dysphagia, unspecified; B95.62 Methicillin resistant Staphylococcus aureus infection as the cause of diseases classified elsewhere; B95.1 Streptococcus, group B, as the cause of diseases classified elsewhere; R68.0 Hypothermia, not associated with low environmental temperature; F03.90 Unspecified dementia, unspecified severity, without behavioral disturbance, psychotic disturbance, mood disturbance, and anxiety; Z20.822 Contact with and (suspected) exposure to COVID-19; Z85.46 Personal history of malignant neoplasm of prostate; Z79.82 Long term (current) use of aspirin; Z79.890 Hormone replacement therapy; Z79.899 Other long term (current) drug therapy
CPT/HCPCS: 36415; 71045; 74174; 74176; 80048; 80053; 81003; 82565; 82947; 83605; 83615; 85007; 85025; 85027; 87040; 87071; 87077; 87147; 87186; 87205; 87635; 92526; 92610; 93005; 96361; 96365; 99285; 99291; C1758; J0456; J1953; J2405; J2543; J3370; Q9967

== ENCOUNTER 2022-02-13 19:19 | Emergency (ER) | payer MEDICARE, MEDICAID, SELFPAY ==
--- NOTE | ~2022-02-13 | XR_ITS ---
EXAMINATION: XR CHEST CLINICAL INFORMATION: Altered mental status COMPARISON: Chest radiograph 02/06/2022, CT chest 01/01/2022 TECHNIQUE: Frontal view of the chest was obtained. FINDINGS: Some mild increased reticular nodular markings are seen in the right upper lobe similar to that noted on recent CT scan. Left basilar atelectasis is present. No large pleural effusions are seen. No consolidation with air bronchograms. XR/XR chest 1V IMPRESSION: No acute intrathoracic disease. Left basilar atelectasis and reticular nodular densities right upper lobe.
[2022-02-13 19:30] VITALS: BP 118/59; PULSE 130; RESP 18; TEMP 37.6; O2SAT 97; BMI 14.9
--- NOTE | 2022-02-13 19:36 | ED_ITS ---
HPI - Altered Mental Status General Chief Complaint: Altered Mental Status Stated Complaint: lack of responisiveness Time Seen by Provider: 02/13/22 19:35 Source: EMS and RN notes reviewed Mode of arrival: EMS Limitations: altered mental status History of Present Illness HPI narrative: Patient 82 years old from correction history of TBI, schizophrenia, dementia, history of prostate cancer recently admitted on 02/06 discharged on 02/09 for left olecranon bursitis with cellulitis and pneumonia with AFib with fast ventricular rate with severe constipation on augmentin comes back for increase lethargic and sleepiness not acting himself today patient having bilateral rhonchi increase pathology with thick yellow/green secretions was saturating 92% on 2 L with temperature 97.1 degrees heart rate 70 beats per minute Related Data Home Medications Medication Instructions Recorded Confirmed acetaminophen 325 mg tablet 650 mg PO Q4H PRN 12/30/21 02/13/22 aluminum-mag hydroxide-simethicone 30 ml PO Q4H PRN 12/30/21 02/13/22 200 mg-200 mg-20 mg/5 mL oral susp atorvastatin 20 mg tablet 20 mg PO BEDTIME 12/30/21 02/13/22 bisacodyl 10 mg rectal suppository 10 mg MN DAILY PRN 12/30/21 02/13/22 bisacodyl 5 mg tablet 5 mg PO DAILY 12/30/21 02/13/22 chlorpromazine 25 mg tablet 25 mg PO BID 12/30/21 02/13/22 chlorpromazine 50 mg tablet 50 mg PO BID 12/30/21 02/13/22 esomeprazole magnesium 40 mg 40 mg PO BID 12/30/21 02/13/22 capsule,delayed release (Nexium) gabapentin 100 mg capsule 100 mg PO BID 12/30/21 02/13/22 haloperidol decanoate 50 mg/mL 10 mg IM Q14D 12/30/21 02/13/22 intramuscular solution (Haldol Decanoate) ibuprofen 600 mg tablet 600 mg PO Q6H PRN 12/30/21 02/13/22 lactulose 10 gram/15 mL oral 20 g PO BID 12/30/21 02/13/22 solution loperamide 2 mg capsule 2 mg PO Q8H PRN 12/30/21 02/13/22 multivitamin 1 tab PO DAILY 12/30/21 02/13/22 ondansetron 4 mg disintegrating 4 mg PO Q4H PRN 12/30/21 02/13/22 tablet propranolol 20 mg tablet 20 mg PO TID 12/30/21 02/13/22 sennosides 8.6 mg tablet (senna) 8.6 mg PO DAILY PRN 12/30/21 02/13/22 sennosides 8.6 mg-docusate sodium 2 tab-cap PO BID 12/30/21 02/13/22 50 mg tablet (Senna Plus) tamsulosin 0.4 mg capsule 0.4 mg PO DAILY@1900 12/30/21 02/13/22 tramadol 50 mg tablet 50 mg PO BID 12/30/21 02/13/22 tramadol 50 mg tablet 50 mg PO Q8H PRN 12/30/21 02/13/22 diazepam 2 mg tablet 2 mg PO Q12H PRN 02/06/22 02/13/22 levothyroxine 75 mcg tablet 75 mcg PO DAILY 02/06/22 02/13/22 metoclopramide HCl 10 mg tablet 10 mg PO BIDAC 02/06/22 02/13/22 collagenase clostridium histo. 250 1 appl TOPICAL DAILY 02/13/22 02/13/22 unit/gram topical ointment (Santyl) levetiracetam 100 mg/mL oral 500 mg PO BID 02/13/22 02/13/22 solution Previous Rx's Medication Instructions Recorded aspirin 81 mg chewable tablet 81 mg PO DAILY #30 tab 01/04/22 amoxicillin 400 mg-potassium 10 ml PO BID 7 Days #140 ml 02/09/22 clavulanate 57 mg/5 mL oral suspension docusate sodium 100 mg capsule 200 mg PO DAILY 30 Days #60 cap 02/09/22 sulfamethoxazole 800 1 tab PO BID #14 tab 02/09/22 mg-trimethoprim 160 mg tablet Allergies Allergy/AdvReac Type Severity Reaction Status Date / Time No Known Allergies Allergy Unverified 06/19/20 17:10 [No Known Allergies*] Review of Systems Review of Systems: Yes Unobtainable due to mental status PMFSH Past Medical History Medical History COPD (chronic obstructive pulmonary disease) Dementia Malignant neoplasm of prostate Prostate cancer Schizophrenia Family History Family History Other Family history unknown Social History Social History Household Members: Other Housing: [facility] Do you presently have visiting nurse or other home services: No (from [facility]) Unable to assess alcohol history related to: Unable to respond Alcohol intake: unknown Patient Tobacco Use Status: Tobacco use Unknown Advance Directives: Yes Advance Directives Information Provided: No Advance Directives on File: No service: No Physical Exam ED Vital Signs: Vital Signs - 24 hr 02/13/22 19:30 02/13/22 20:00 02/13/22 20:20 Temperature 99.7 F 99.7 F Pulse Rate 130 H 111 H 105 H Respiratory Rate 18 15 Blood Pressure 118/59 L 119/66 100/66 Pulse Oximetry 97 100 100 02/13/22 21:14 02/13/22 21:42 Temperature 98.2 F Pulse Rate 101 H 106 H Respiratory Rate 16 Blood Pressure 151/68 H 131/65 Pulse Oximetry 99 99 BMI result Body Mass Index 14.9 Appearance: Lethargic alert oriented x1 only dementia++ Eyes: PERRLA, ENT: Pharynx normal. Oral Mucosa moist Neck: Normal inspection. Neck supple. CVS: Normal heart rate and rhythm. Pulses normal. Respiratory: No respiratory distress. Equal air entry bilateral, no wheezing/rales/rhonchi Abdomen: Soft and nontender. Bowel sounds are present, no mass palpable, Skin: Skin warm and dry. Left forearm healing cellulitis. Normal skin turgor. Extremities: No lower extremity edema. No calf tenderness Neuro: Oriented X 1. Moving all 4 extremities MDM - Altered Mental Status MDM Narrative Medical decision making narrative: Patient from correction for increased lethargic with diagnosis of cellulitis and pneumonia workup for chest x-ray without any significant infiltrate WBC count 10.1 hemoglobin 8.9 creatinine slightly elevated from baseline of 1.0-1.61 now sodium 149 lactic acid 1.1 has slightly elevated LFTs with normal bilirubin with no history of gallstone patient was given 1 dose of vancomycin and Zosyn Patient received IV fluids in the ER patient had 3 cups of puddings at his baseline will discharge patient back to correction to continue his Augmentin Medical Records Attestation: I reviewed the patient's medical records. Lab Data Attestation: I reviewed the patient's lab results. Result diagrams: 02/13/22 19:49 02/13/22 19:49 Labs: Lab Results 02/13/22 02/13/22 02/13/22 Range/Units 19:25 19:49 19:49 WBC 10.1 (4.8-10.8) X10*3/uL RBC 3.14 L (4.60-5.80) X10*6/uL Hgb 8.9 L (14.0-18.0) g/dl Hct 27.5 L (42.0-52.0) % MCV 87.6 (80.0-98.0) fL MCH 28.3 (27.0-33.0) pg MCHC 32.4 (31.0-36.0) g/dl RDW 17.2 H (11.0-16.0) % Plt Count 421 H D (160-400) X10*3/uL MPV 10.0 (9.4-12.4) fL Immature Gran % (Auto) 1.7 H (0.0-0.4) % Neut % (Auto) 75.9 H (45-73) % Lymph % (Auto) 10.8 L (20-40) % Bennett % (Auto) 9.2 (2-11) % Eos % (Auto) 2.2 (0-4) % Baso % (Auto) 0.2 (0-2) % Lymph # (Auto) 1.1 L (1.2-4.9) X10*3/uL Bennett # (Auto) 0.9 (0.1-1.2) X10*3/uL Eos # (Auto) 0.2 (0.0-0.4) X10*3/uL Baso # (Auto) 0.0 (0.0-0.2) X10*3/uL Abs Immat Gran (auto) 0.17 H (0.00-0.03) X10*3/uL Absolute Neuts (auto) 7.7 (2.0-8.3) x10*3/uL Absolute Nucleated RBC 0.020 H (0.0-0.012) X10*3/uL Nucleated RBC % (auto) 0.2 (0.0-0.2) /100WBC VBG pH (7.32-7.43) VBG pCO2 mmHg VBG pO2 mmHg VBG HCO3 (22-26) mmol/L VBG O2 Saturation % VBG Base Excess mmol/L Sodium (135-145) mmol/L Potassium (3.3-5.1) mmol/L Chloride (96-108) mmol/L Carbon Dioxide (22-29) mmol/L Anion Gap (12-20) BUN (9-16) mg/dL Creatinine (0.5-1.4) mg/dL Estim Creat Clear Calc Estimated GFR POC Glucose 87 (60-115) mg/dL Random Glucose (60-115) mg/dL Lactic Acid (0.5-2.0) mmol/L Calcium (8.4-10.2) mg/dL Total Bilirubin (0.0-1.0) mg/dL AST (5-37) U/L ALT (0-40) U/L Alkaline Phosphatase (39-117) U/L Total Protein (6.5-8.0) g/dL Albumin (3.5-5.0) g/dL Urine Color Urine Appearance Urine pH (5.0-8.0) Ur Specific [place] (1.005-1.025) Urine Protein (NEG-TRACE) MG/DL Urine Glucose (UA) (NEG) MG/DL Urine Ketones (NEG) MG/DL Urine Blood (NEG) Urine Nitrite (NEG) Ur Leukocyte Esterase (NEG) COVID-19 (COOPER) Negative (Negative) COVID-19 Clin Com See Note 02/13/22 02/13/22 02/13/22 Range/Units 19:49 19:49 19:59 WBC (4.8-10.8) X10*3/uL RBC (4.60-5.80) X10*6/uL Hgb (14.0-18.0) g/dl Hct (42.0-52.0) % MCV (80.0-98.0) fL MCH (27.0-33.0) pg MCHC (31.0-36.0) g/dl RDW (11.0-16.0) % Plt Count (160-400) X10*3/uL MPV (9.4-12.4) fL Immature Gran % (Auto) (0.0-0.4) % Neut % (Auto) (45-73) % Lymph % (Auto) (20-40) % Bennett % (Auto) (2-11) % Eos % (Auto) (0-4) % Baso % (Auto) (0-2) % Lymph # (Auto) (1.2-4.9) X10*3/uL Bennett # (Auto) (0.1-1.2) X10*3/uL Eos # (Auto) (0.0-0.4) X10*3/uL Baso # (Auto) (0.0-0.2) X10*3/uL Abs Immat Gran (auto) (0.00-0.03) X10*3/uL Absolute Neuts (auto) (2.0-8.3) x10*3/uL Absolute Nucleated RBC (0.0-0.012) X10*3/uL Nucleated RBC % (auto) (0.0-0.2) /100WBC VBG pH 7.41 (7.32-7.43) VBG pCO2 38 mmHg VBG pO2 73 mmHg VBG HCO3 25 (22-26) mmol/L VBG O2 Saturation 91.0 % VBG Base Excess 0.7 mmol/L Sodium 149 H (135-145) mmol/L Potassium 4.7 (3.3-5.1) mmol/L Chloride 114 H (96-108) mmol/L Carbon Dioxide 26 (22-29) mmol/L Anion Gap 14 (12-20) BUN 27 H (9-16) mg/dL Creatinine 1.61 H (0.5-1.4) mg/dL Estim Creat Clear Calc 24.1 Estimated GFR 41 POC Glucose (60-115) mg/dL Random Glucose 102 D (60-115) mg/dL Lactic Acid 1.1 (0.5-2.0) mmol/L Calcium 8.6 (8.4-10.2) mg/dL Total Bilirubin 0.4 (0.0-1.0) mg/dL AST 159 H (5-37) U/L ALT 73 H (0-40) U/L Alkaline Phosphatase 141 H (39-117) U/L Total Protein 5.7 L (6.5-8.0) g/dL Albumin 2.7 L (3.5-5.0) g/dL Urine Color Urine Appearance Urine pH (5.0-8.0) Ur Specific [place] (1.005-1.025) Urine Protein (NEG-TRACE) MG/DL Urine Glucose (UA) (NEG) MG/DL Urine Ketones (NEG) MG/DL Urine Blood (NEG) Urine Nitrite (NEG) Ur Leukocyte Esterase (NEG) COVID-19 ([facility]) (Negative) COVID-19 Clin Com 02/13/22 Range/Units 20:01 WBC (4.8-10.8) X10*3/uL RBC (4.60-5.80) X10*6/uL Hgb (14.0-18.0) g/dl Hct (42.0-52.0) % MCV (80.0-98.0) fL MCH (27.0-33.0) pg MCHC (31.0-36.0) g/dl RDW (11.0-16.0) % Plt Count (160-400) X10*3/uL MPV (9.4-12.4) fL Immature Gran % (Auto) (0.0-0.4) % Neut % (Auto) (45-73) % Lymph % (Auto) (20-40) % Bennett % (Auto) (2-11) % Eos % (Auto) (0-4) % Baso % (Auto) (0-2) % Lymph # (Auto) (1.2-4.9) X10*3/uL Bennett # (Auto) (0.1-1.2) X10*3/uL Eos # (Auto) (0.0-0.4) X10*3/uL Baso # (Auto) (0.0-0.2) X10*3/uL Abs Immat Gran (auto) (0.00-0.03) X10*3/uL Absolute Neuts (auto) (2.0-8.3) x10*3/uL Absolute Nucleated RBC (0.0-0.012) X10*3/uL Nucleated RBC % (auto) (0.0-0.2) /100WBC VBG pH (7.32-7.43) VBG pCO2 mmHg VBG pO2 mmHg VBG HCO3 (22-26) mmol/L VBG O2 Saturation % VBG Base Excess mmol/L Sodium (135-145) mmol/L Potassium (3.3-5.1) mmol/L Chloride (96-108) mmol/L Carbon Dioxide (22-29) mmol/L Anion Gap (12-20) BUN (9-16) mg/dL Creatinine (0.5-1.4) mg/dL Estim Creat Clear Calc Estimated GFR POC Glucose (60-115) mg/dL Random Glucose (60-115) mg/dL Lactic Acid (0.5-2.0) mmol/L Calcium (8.4-10.2) mg/dL Total Bilirubin (0.0-1.0) mg/dL AST (5-37) U/L ALT (0-40) U/L Alkaline Phosphatase (39-117) U/L Total Protein (6.5-8.0) g/dL Albumin (3.5-5.0) g/dL Urine Color YELLOW Urine Appearance CLEAR Urine pH 5.5 (5.0-8.0) Ur Specific [place] >= 1.030 H (1.005-1.025) Urine Protein TRACE (NEG-TRACE) MG/DL Urine Glucose (UA) NEG (NEG) MG/DL Urine Ketones NEG (NEG) MG/DL Urine Blood NEG (NEG) Urine Nitrite NEG (NEG) Ur Leukocyte Esterase NEG (NEG) COVID-19 ([facility]) (Negative) COVID-19 Clin Com Discharge Plan Discharge Clinical Impression: Weakness, GRACE (acute kidney injury) Patient Disposition: er [facility] Instructions: Acute Kidney Injury (DC), Weakness (ED) Additional Instructions: Keep patient hydrated Continue antibiotics Recheck chemistry in 3 - 4 days Follow-up with PCP Prescriptions: No Action acetaminophen 325 mg Tablet 650 mg PO Q4H PRN (Reason: PAIN/TEMP) 0RF atorvastatin 20 mg Tablet 20 mg PO BEDTIME 0RF bisacodyl 10 mg Suppository 10 mg MN DAILY PRN (Reason: Constipation) 0RF chlorpromazine 25 mg Tablet 25 mg PO BID 0RF Rx Instructions: TAKE TOGETHER WITH 50 MG DOSE FOR TOTAL DOSE OF 75 MG BID chlorpromazine 50 mg Tablet 50 mg PO BID 0RF Rx Instructions: TAKE TOGETHER WITH 25 MG DOSE, TO MAKE TOTAL DOSE OF 75 MG gabapentin 100 mg Capsule 100 mg PO BID 0RF haloperidol decanoate [Haldol Decanoate] 50 mg/mL Solution 10 mg IM Q14D 0RF ibuprofen 600 mg Tablet 600 mg PO Q6H PRN (Reason: Pain (Scale Score 4-6)) 0RF lactulose 10 gram/15 mL Solution 20 g PO BID 0RF loperamide 2 mg Capsule 2 mg PO Q8H PRN (Reason: Diarrhea) 0RF esomeprazole magnesium [Nexium] 40 mg Capsule,Delayed Release(Dr/Ec) 40 mg PO BID 0RF ondansetron 4 mg Tablet,Disintegrating 4 mg PO Q4H PRN (Reason: Nausea And Vomiting) 0RF multivitamin Tablet 1 tab PO DAILY 0RF propranolol 20 mg Tablet 20 mg PO TID 0RF alum-mag hydroxide-simeth 200-200-20 mg/5 mL Suspension 30 ml PO Q4H PRN (Reason: Indigestion) 0RF Rx Instructions: administer between meals and at bedtime sennosides [senna] 8.6 mg Tablet 8.6 mg PO DAILY PRN (Reason: Constipation) 0RF sennosides-docusate sodium [Senna Plus] 8.6-50 mg Tablet 2 tab-cap PO BID 0RF bisacodyl 5 mg Tablet 5 mg PO DAILY 0RF tamsulosin 0.4 mg Capsule 0.4 mg PO DAILY@1900 0RF tramadol 50 mg Tablet 50 mg PO BID 0RF tramadol 50 mg Tablet 50 mg PO Q8H PRN (Reason: Pain (Scale Score 4-6)) 0RF Rx Instructions: GIVE 8 HOURS APART FROM SCHEDULED DOSE aspirin 81 mg Tablet,Chewable 81 mg PO DAILY Qty: 30 0RF levothyroxine 75 mcg Tablet 75 mcg PO DAILY 0RF metoclopramide HCl 10 mg Tablet 10 mg PO BIDAC 0RF diazepam 2 mg Tablet 2 mg PO Q12H PRN (Reason: Agitation) 0RF docusate sodium 100 mg Capsule 200 mg PO DAILY 30 Days Qty: 60 0RF sulfamethoxazole-trimethoprim 800-160 mg tablet 1 tab PO BID Qty: 14 0RF Rx Instructions: x 7 days, finish 02/16/2022 amoxicillin-pot clavulanate 400-57 mg/5 mL suspension for reconstitution 10 ml PO BID 7 Days Qty: 140 0RF Rx Instructions: x 7 days, finished 02/16/2022 Santyl 250 unit/gram Ointment 1 appl TOPICAL DAILY 0RF Rx Instructions: APPLY TO LEFT ELBOW levetiracetam 100 mg/mL Solution 500 mg PO BID 0RF
--- NOTE | 2022-02-13 19:37 | ECG_ITS ---
Test Reason : ALTERED Blood Pressure : / mmHG Vent. Rate : 117 BPM Atrial Rate : 117 BPM P-R Int : 146 ms QRS Dur : 086 ms QT Int : 316 ms P-R-T Axes : 047 -15 003 degrees QTc Int : 440 ms Sinus tachycardia Otherwise normal ECG When compared with ECG of 06-FEB-2022 19:59, Nonspecific T wave abnormality no longer evident in Lateral leads Referred By: Carl Michaud Electronically Signed By:BABS THOMAS MD
[2022-02-13 19:56] LABS: MANUAL DIFF FLAG NO
[2022-02-13 20:00] VITALS: BP 119/66; PULSE 111; RESP 15; TEMP 37.6; O2SAT 100
[2022-02-13 20:04] LABS: Basophils Percent Auto 0.2 % (0-2); Eosinophils Absolute Auto 0.2 X10*3/uL (0.0-0.4); Eosinophils Percent Auto 2.2 % (0-4); Hematocrit 27.5 % (42.0-52.0); Hemoglobin 8.9 g/dl (14.0-18.0); Imm Gran Abs Auto 0.17 X10*3/uL (0.00-0.03); Imm Gran Pct Auto 1.7 % (0.0-0.4); Lymphocytes Absolute Auto 1.1 X10*3/uL (1.2-4.9); Lymphocytes Percent Auto 10.8 % (20-40); Mean Corpuscular HGB Conc 32.4 g/dl (31.0-36.0); Mean Corpuscular Hemoglobin 28.3 pg (27.0-33.0); Mean Corpuscular Volume 87.6 fL (80.0-98.0); Monocytes Absolute Auto 0.9 X10*3/uL (0.1-1.2); Monocytes Percent Auto 9.2 % (2-11); NRBC Pct Auto 0.2 /100WBC (0.0-0.2); Neutrophils Absolute Auto 7.7 x10*3/uL (2.0-8.3); Neutrophils Percent Auto 75.9 % (45-73); Platelet Count 421 X10*3/uL (160-400); Red Blood Count 3.14 X10*6/uL (4.60-5.80); Red Cell Distribution Width 17.2 % (11.0-16.0); White Blood Count 10.1 X10*3/uL (4.8-10.8)
[2022-02-13 20:11] LABS: Appearance Urine CLEAR; Color Urine YELLOW; Glucose Urine UA NEG (NEG); Leukocyte Esterase Urine NEG (NEG); Nitrite Urine NEG (NEG); PH 5.5 (5.0-8.0); Specific Gravity - Urine >= 1.030 (1.005-1.025); Urine Blood NEG (NEG); Urine Ketones NEG (NEG); Urine Protein TRACE MG/DL (NEG-TRACE)
--- NOTE | 2022-02-13 20:11 | PC.NURSE ---
patient was change into hospital attire .
[2022-02-13 20:15] LABS: Lactic Acid 1.1 mmol/L (0.5-2.0)
[2022-02-13] MEDS: 0.9 % Sodium Chloride 2,000 ML 666.67 ML IV (20:17)
[2022-02-13] MEDS: cefTRIAXone sodium 1 GM in 0.9 % Sodium Chloride 50 ML IV (20:17)
[2022-02-13 20:20] VITALS: BP 100/66; PULSE 105; O2SAT 100
[2022-02-13 20:21] LABS: COVID-19 Test Negative (Negative)
[2022-02-13 20:21] LABS: VBG Base Excess 0.7 mmol/L; VBG HCO3 25 mmol/L (22-26); VBG pCO2 38 mmHg; VBG pH 7.41 (7.32-7.43); VBG pO2 73 mmHg
[2022-02-13 20:22] LABS: Venous Blood Gas Refer to POC result
[2022-02-13 20:24] LABS: Alanine Aminotransferase 73 U/L (0-40); Albumin Level 2.7 g/dL (3.5-5.0); Alkaline Phosphatase 141 U/L (39-117); Anion Gap 14 (12-20); Aspartate Amino Transferase 159 U/L (5-37); Bilirubin Total 0.4 mg/dL (0.0-1.0); Blood Urea Nitrogen 27 mg/dL (9-16); Calcium 8.6 mg/dL (8.4-10.2); Carbon Dioxide 26 mmol/L (22-29); Chloride 114 mmol/L (96-108); Creatinine Clr Calc Pharmacy 24.1; Estimated Glomerular Filt Rate 41; Glucose Random 102 mg/dL (60-115); Potassium 4.7 mmol/L (3.3-5.1); Sodium 149 mmol/L (135-145); Total Protein 5.7 g/dL (6.5-8.0)
[2022-02-13 21:08] LABS: Glucose, Whole Blood 87 mg/dL (60-115)
[2022-02-13] MEDS: vancomycin HCL 1,000 MG in 0.9 % Sodium Chloride 250 ML 270 MG IV (21:12)
[2022-02-13 21:14] VITALS: BP 151/68; PULSE 101; O2SAT 99
[2022-02-13 21:42] VITALS: BP 131/65; PULSE 106; RESP 16; TEMP 36.8; O2SAT 99
--- NOTE | 2022-02-13 21:51 | PC.NURSE ---
Spoke with [facility] nurse. Per nurse, pt is currently at baseline. Pt yelling and staff when pt is changed. Pt responds to verbal stimuli by yelling out. Per nurse, was concerned with pt refusing to take anything PO all day today. Per nurse, pt not able to eat or take any medications today.
--- NOTE | 2022-02-13 22:01 | PHA.MEDREC ---
Pharmacy Consult ? Medication Reconciliation Pharmacy has completed the medication reconciliation. Patient came from [facility] with a medication list. Marianela Mosqueda, RebekahD
--- NOTE | 2022-02-13 22:29 | PC.NURSE ---
Pt ate pudding. tolerated well Pt able to keep eyes open, answers to verbal stimuli. Report given to LONNY Medina at [facility] Will arrange transport for pt Will continue to monitor
--- NOTE | 2022-02-13 22:33 | PC.NURSE ---
PATIENT NEEDED TO BE FED ATE 2 PUDDINGS AND 1 YOGURT ,DRANK 240 ML FLUIDS.
== END 2022-02-13 23:23 ==
PROVIDERS: Emergency Provider Internal Medicine; PCP Hospitalist
DX: N17.9 Acute kidney failure, unspecified (principal); R53.1 Weakness; F03.90 Unspecified dementia, unspecified severity, without behavioral disturbance, psychotic disturbance, mood disturbance, and anxiety; J44.9 Chronic obstructive pulmonary disease, unspecified; F20.9 Schizophrenia, unspecified; Z79.899 Other long term (current) drug therapy; Z87.820 Personal history of traumatic brain injury; Z20.822 Contact with and (suspected) exposure to COVID-19
CPT/HCPCS: 36415; 71045; 80053; 81003; 82803; 82947; 83605; 85025; 87040; 87635; 93005; 96361; 96374; 96375; 99283; 99285; J0696; J3370

== ENCOUNTER 2022-05-14 13:38 | Inpatient (IN) | payer MEDICARE, MEDICAID, SELFPAY ==
[2022-05-14] VITALS (19 sets, daily range): BP systolic 69–129; BP diastolic 33–72; PULSE 66–79; RESP 10–20; TEMP 34–34.5; O2SAT 88–99; BMI 22.6
--- NOTE | ~2022-05-14 | CT_ITS ---
EXAMINATION: CT CHEST, ABDOMEN AND PELVIS WITHOUT CONTRAST CLINICAL INFORMATION: Shortness of breath and hypoxia. Question aspiration. Abdominal pain. COMPARISON: Chest CT 01/01/2022, CT abdomen pelvis 02/07/2022 TECHNIQUE: Multidetector volumetric imaging was performed from the thoracic inlet through the pubic symphysis. Sagittal and coronal reformatted images were obtained on the technologist's workstation. Axial MIP volume rendering provided. This CT examination was performed using dose optimization techniques as appropriate, variously including the following: *Automated exposure control *Adjustment of mA and/or kV according to patient size (this includes techniques or standardized protocols for targeted exams where dose is matched to indication/reason for exam; i.e. extremities or head) *Use of iterative reconstruction technique DLP: 957 mGy-cm FINDINGS: CHEST: Lungs: Opej-sy-lpp-like nodular opacities scattered within both lungs with a larger ill-defined nodular opacities in the inferior right upper lobe, right middle lobe, and left lung base. Mild hazy atelectasis in the dependent portion of both lungs. No lobar consolidation. Mild apical centrilobular and paraseptal emphysema. Central airways are clear. Mild bronchial wall thickening. Small air cysts or focal areas of cystic bronchiectasis in the left upper lobe/lingula. Mediastinum: No cardiomegaly or pericardial effusion. Mitral annular calcifications. Coarse LAD calcification versus stent. Normal caliber thoracic aorta and central pulmonary trunk. Pericardium/Pleura: There is no significant effusion. No pleural mass or thickening. Chest Wall/Axilla: Unremarkable. ABDOMEN/PELVIS: Liver, Gallbladder, Biliary Tree: The liver is normal in size, shape, and attenuation. Calcification in the inferior right liver lobe is unchanged. No focal hepatic lesion or biliary ductal dilatation is present. The gallbladder is unremarkable with no evidence of radiopaque gallstones, gallbladder wall thickening, or pericholecystic inflammatory changes. Pancreas: Unremarkable. Spleen: Unremarkable. Adrenal Glands: Nodular thickening/small nodules of the bilateral adrenal glands. Previously seen right adrenal hematoma has resolved Kidneys and Ureters: Small low-density right renal cysts. No radiodense renal calculi. No hydronephrosis or perinephric stranding. Bladder: Largely decompressed with Luevano catheter in place. Thick-walled appearance secondary to decompression. Small amount iatrogenic gas. Gastrointestinal Tract: Large amount formed stool within the colon including a large stool ball distending the rectum. Rectal wall appears slightly thickened. Mild perirectal/presacral edema. Sigmoid diverticulosis. No evidence of acute diverticulitis. No dilated small bowel loops. Normal appendix. No ascites or free air. Abdominal Wall: Tiny fat-containing left inguinal hernia. Lymphovascular Structures: Lymph nodes: No lymphadenopathy. Vascular: Extensive atherosclerotic vascular calcifications. No abdominal aortic aneurysm. Pelvic Viscera: Unremarkable. OSSEOUS STRUCTURES: No acute fracture or suspicious osseous lesion. Status post left femoral cephalomedullary nail. 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 Multilevel degenerative disc disease. Prominent endplate cystic changes at L4-L5, unchanged. CT/CT abdomen pelvis wo con IMPRESSION: 1. Development of numerous sryf-el-uxb-like nodular opacities within both lungs and larger scattered ill-defined pulmonary nodules, mild bronchial wall thickening and possible mild cystic bronchiectasis in the left upper lobe. Differential considerations include bronchopneumonia or sequela of aspiration. 2. No lobar consolidation or effusions. 3. Large amount of formed stool throughout the colon including a large stool ball distending the rectum. Correlate clinically with signs or symptoms of constipation/obstipation and mild stercoral colitis. 4. No other acute intra-abdominal process. 5. Resolution of previously seen right adrenal hematoma. Small bilateral adrenal nodules are present, likely adenomas.
--- NOTE | ~2022-05-14 | XR_ITS ---
EXAMINATION: XR CHEST CLINICAL INFORMATION: AMS. COMPARISON: Chest x-ray 12/14/2021. TECHNIQUE: Frontal view of the chest was obtained. FINDINGS: The lungs are somewhat expanded with increased reticular nodular interstitial changes in both lungs. The heart size and pulmonary vascularity normal. No gross bony abnormality seen. XR/XR chest 1V IMPRESSION: Partially expanded lungs with increased reticular nodular interstitial changes in both lungs, stable. No new findings when compared to 02/13/2022.
--- NOTE | ~2022-05-14 | CT_ITS ---
EXAMINATION: CT HEAD WITHOUT CONTRAST CLINICAL INFORMATION: Acute mental status change COMPARISON: Head CT 03/02/2022 TECHNIQUE: Imaging was performed from the skull base to vertex without intravenous administration of contrast. This CT examination was performed using dose optimization techniques as appropriate, variously including the following: *Automated exposure control *Adjustment of mA and/or kV according to patient size (this includes techniques or standardized protocols for targeted exams where dose is matched to indication/reason for exam; i.e. extremities or head) *Use of iterative reconstruction technique Total exam dose length product: 782 mGy-cm FINDINGS: Exam quality degraded by motion artifact. No intra or extra-axial fluid collection, hemorrhage, or mass. No ventriculomegaly. No midline shift or herniation. Basal cisterns are patent. [place]-white matter differentiation is maintained. No territorial encephalomalacia. Proportional prominence of the ventricles and sulcal spaces is consistent with moderate volume loss. Patchy periventricular and deep white matter hypoattenuation is consistent with moderate small vessel ischemic changes. No calvarial fracture or soft tissue abnormality. The mastoid air cells and visualized portions of the paranasal sinuses are well aerated. Status post bilateral lens extractions. CT/CT head/brain wo con IMPRESSION: 1. Exam quality degraded by patient motion artifact. 2. No intracranial hemorrhage, mass, or acute edematous territorial infarct identified. 2. Unchanged cerebral atrophy and chronic small vessel ischemic white matter change.
--- NOTE | 2022-05-14 13:51 | ECG_ITS ---
Test Reason : altered mental status Blood Pressure : / mmHG Vent. Rate : 064 BPM Atrial Rate : 064 BPM P-R Int : 188 ms QRS Dur : 100 ms QT Int : 444 ms P-R-T Axes : 068 -32 012 degrees QTc Int : 458 ms Normal sinus rhythm Left axis deviation Minimal voltage criteria for LVH, may be normal variant ( R in aVL ) Cannot rule out Anterior infarct , age undetermined Abnormal ECG When compared with ECG of 13-FEB-2022 19:43, Vent. rate has decreased BY 53 BPM Minimal criteria for Anterior infarct are now Present Referred By: Kat Fenton Electronically Signed By:NATI GAN
--- NOTE | 2022-05-14 14:25 | ED_ITS ---
HPI - Altered Mental Status General Chief Complaint: Altered Mental Status Stated Complaint: AMS dut to Hypotension Time Seen by Provider: 05/14/22 13:50 Source: EMS and other Mode of arrival: EMS History of Present Illness HPI narrative: 82-year-old male who arrives via EMS from care 1 with altered mental status and facility reporting unresponsiveness. As per the facility patient is ?grumpy and aggressive? at baseline and then the nursing staff noted that patient was hypotensive with low oxygenation. As per EMS EN route after giving fluids they were able to improve the blood pressure to 90s over 50s and on placement of supplemental nasal cannula patient's oxygenation has improved to over 92%. Related Data Home Medications Medication Instructions Recorded Confirmed acetaminophen 325 mg tablet 650 mg PO Q4H PRN PAIN/TEMP 12/30/21 02/13/22 aluminum-mag hydroxide-simethicone 30 ml PO Q4H PRN Indigestion 12/30/21 02/13/22 200 mg-200 mg-20 mg/5 mL oral susp atorvastatin 20 mg tablet 20 mg PO BEDTIME 12/30/21 02/13/22 bisacodyl 10 mg rectal suppository 10 mg OH DAILY PRN Constipation 12/30/21 02/13/22 bisacodyl 5 mg tablet 5 mg PO DAILY 12/30/21 02/13/22 chlorpromazine 25 mg tablet 25 mg PO BID 12/30/21 02/13/22 chlorpromazine 50 mg tablet 50 mg PO BID 12/30/21 02/13/22 esomeprazole magnesium 40 mg 40 mg PO BID 12/30/21 02/13/22 capsule,delayed release (Nexium) gabapentin 100 mg capsule 100 mg PO BID 12/30/21 02/13/22 haloperidol decanoate 50 mg/mL 10 mg IM Q14D 12/30/21 02/13/22 intramuscular solution (Haldol Decanoate) ibuprofen 600 mg tablet 600 mg PO Q6H PRN Pain (Scale 12/30/21 02/13/22 Score 4-6) lactulose 10 gram/15 mL oral 20 g PO BID 12/30/21 02/13/22 solution loperamide 2 mg capsule 2 mg PO Q8H PRN Diarrhea 12/30/21 02/13/22 multivitamin 1 tab PO DAILY 12/30/21 02/13/22 ondansetron 4 mg disintegrating 4 mg PO Q4H PRN Nausea And Vomiting 12/30/21 02/13/22 tablet propranolol 20 mg tablet 20 mg PO TID 12/30/21 02/13/22 sennosides 8.6 mg tablet (senna) 8.6 mg PO DAILY PRN Constipation 12/30/21 02/13/22 sennosides 8.6 mg-docusate sodium 2 tab-cap PO BID 12/30/21 02/13/22 50 mg tablet (Senna Plus) tamsulosin 0.4 mg capsule 0.4 mg PO DAILY@1900 12/30/21 02/13/22 tramadol 50 mg tablet 50 mg PO BID 12/30/21 02/13/22 tramadol 50 mg tablet 50 mg PO Q8H PRN Pain (Scale Score 12/30/21 02/13/22 4-6) diazepam 2 mg tablet 2 mg PO Q12H PRN Agitation 02/06/22 02/13/22 levothyroxine 75 mcg tablet 75 mcg PO DAILY 02/06/22 02/13/22 metoclopramide HCl 10 mg tablet 10 mg PO BIDAC 02/06/22 02/13/22 collagenase clostridium histo. 250 1 appl topical DAILY 02/13/22 02/13/22 unit/gram topical ointment (Santyl) levetiracetam 100 mg/mL oral 500 mg PO BID 02/13/22 02/13/22 solution Previous Rx's Medication Instructions Recorded aspirin 81 mg chewable tablet 81 mg PO DAILY #30 tabs 01/04/22 amoxicillin 400 mg-potassium 10 ml PO BID 7 days #140 mL 02/09/22 clavulanate 57 mg/5 mL oral suspension docusate sodium 100 mg capsule 200 mg PO DAILY 30 days #60 caps 02/09/22 sulfamethoxazole 800 1 tab PO BID #14 tabs 02/09/22 mg-trimethoprim 160 mg tablet Allergies Allergy/AdvReac Type Severity Reaction Status Date / Time No Known Allergies Allergy Unverified 06/19/20 17:10 [No Known Allergies*] Review of Systems Review of Systems: Yes Unobtainable due to mental condition PMFSH Past Medical History Source: nursing notes reviewed Medical History Atrial fibrillation COPD (chronic obstructive pulmonary disease) Dementia Malignant neoplasm of prostate Prostate cancer Schizophrenia Family History Family History Other Family history unknown Social History Social History Household Members: Other Housing: Half-Way Do you presently have visiting nurse or other home services: No (from snf) Unable to assess alcohol history related to: Unable to respond Alcohol intake: unknown Patient Tobacco Use Status: Tobacco use Unknown Advance Directives: No Advance Directives Information Provided: No service: No Physical Exam ED Vital Signs: Vital Signs - 24 hr 05/14/22 13:48 05/14/22 14:40 05/14/22 15:06 Temperature 93.9 F L 93.6 F L 93.2 F L Pulse Rate 76 69 67 Respiratory Rate 20 16 10 L Blood Pressure 103/60 88/47 L 76/39 L Pulse Oximetry 99 97 88 L Oxygen Delivery Method Nasal Cannula Nasal Cannula Nasal Cannula Oxygen Flow Rate 3 3 05/14/22 15:16 05/14/22 15:25 05/14/22 15:30 Temperature Pulse Rate 74 70 69 Respiratory Rate Blood Pressure 88/49 L 83/44 L 79/42 L Pulse Oximetry Oxygen Delivery Method Oxygen Flow Rate 05/14/22 15:37 05/14/22 15:42 05/14/22 15:55 Temperature 93.6 F L 93.6 F L Pulse Rate 66 72 71 Respiratory Rate 12 16 Blood Pressure 106/72 129/69 101/57 L Pulse Oximetry 97 93 Oxygen Delivery Method Nasal Cannula Nasal Cannula Oxygen Flow Rate 3 3 05/14/22 16:38 05/14/22 18:10 05/14/22 18:21 Temperature 94.1 F L 93.9 F L 93.9 F L Pulse Rate 76 74 79 Respiratory Rate 18 20 13 Blood Pressure 120/67 85/33 L 92/44 L Pulse Oximetry 98 97 98 Oxygen Delivery Method Nasal Cannula Nasal Cannula Nasal Cannula Oxygen Flow Rate 3 3 3 05/14/22 18:28 Temperature 93.7 F L Pulse Rate 74 Respiratory Rate 12 Blood Pressure 92/43 L Pulse Oximetry 97 Oxygen Delivery Method Nasal Cannula Oxygen Flow Rate 3 BMI result Body Mass Index 22.6 VITAL SIGNS: Reviewed. GENERAL: Cachectic and chronically ill, in no acute distress. HEAD: Normocephalic/atraumatic EYES: PERRLA, pupils are pinpoint EARS: Ext canals without abnormality NOSE: Nares patent bilateral OROPHARYNX: no oral lesions noted, posterior pharynx clear, dry mucosa NECK: Supple, no adenopathy LUNGS: Normal breath sounds. No adventitious sounds or accessory muscle use. SpO2<99> CARDIOVASCULAR: Regular rate and rhythm without noted murmurs, no JVD or lower extremity edema. ABDOMEN: Soft, non-tender, non-distended with bowel sounds. MUSCULOSKELETAL: No tenderness, deformities, or effusions noted on gross inspection. EXTREMITIES: No cyanosis, clubbing or edema. SKIN: Inspection of the skin reveals no rashes NEUROLOGIC: GCS- 7. Patient is contracted at baseline Course Course Course Narrative: 82-year-old with history and clinical presentation suggestive of possible overmedication, will rule out electrolyte, anemia, infectious etiologies. Patient had temperature sensing Luevano catheter placed as he was noted to be hypothermic. Luevano catheter is draining clear yellow urine, he is oxygenating well on supplemental oxygen and will received 2 mg of Narcan IV, patient received another 2 mg of Narcan and on re-evaluation is noted to be more responsive. Patient's temperature is gradually improving with the Miguel Hugger. Patient received 2 L of normal saline and it was noted that he was persistently hypotensive and so he was started on Levophed with good response and we were gradually able to titrate off of the Levophed. We did discuss this case with the inpatient [facility] who recommend transition to phenylephrine if necessary. Review of all investigations with CT findings suggestive possible aspiration pneumonia which fits with patient's presentation hypoxia, decreased mental status. Patient is ordered received IV fluids, antibiotics as well as lactic acid and blood cultures. Trialed patient off of Levophed, but patient's blood pressure noted to trend downward and again in MAP-54. Patient will be placed back on phenylephrine and I discussed this case with the [facility] who is requesting that we check the TSH, add IV fluids, procalcitonin, Utox. Patient is easily arousable. Radiology addended the CT head and now describes hypoattenuation at rt occipital lobe is new . Clinically this is challenging to assess given patient's underlying mental status, but is possible given patient's hx of a-fib and no anticoagulation. Signed out to DR Altamirano to f/u TSH/Utox/Procalcitonin and then reach out to Dr Cosme. Reevaluation(s) Reevaluation #1: I discussed this case with Dr Stewart who knows the patient and states that the only way to fully characterize this hypoattenuation would be with MRI, but then what would change the treatment given that patient is bedbound and clinically no gross motor changes from reported baseline. Dr. Stewart agrees with current approach to care. Time: 18:15 MDM - Altered Mental Status Lab Data Result diagrams: 05/14/22 15:05 05/14/22 15:05 Labs: Lab Results 05/14/22 05/14/22 05/14/22 Range/Units 15:04 15:05 15:05 WBC 13.5 H (4.8-10.8) X10*3/uL RBC 3.25 L (4.60-5.80) X10*6/uL Hgb 8.6 L (14.0-18.0) g/dl Hct 28.0 L (42.0-52.0) % MCV 86.2 (80.0-98.0) fL MCH 26.5 L (27.0-33.0) pg MCHC 30.7 L (31.0-36.0) g/dl RDW 19.6 H (11.0-16.0) % Plt Count 175 D (160-400) X10*3/uL MPV 10.4 (9.4-12.4) fL Immature Gran % (Auto) 0.3 (0.0-0.4) % Neut % (Auto) 76.5 H (45-73) % Lymph % (Auto) 13.9 L (20-40) % [place] % (Auto) 6.5 (2-11) % Eos % (Auto) 2.5 (0-4) % Baso % (Auto) 0.3 (0-2) % Lymph # (Auto) 1.9 (1.2-4.9) X10*3/uL [place] # (Auto) 0.9 (0.1-1.2) X10*3/uL Eos # (Auto) 0.3 (0.0-0.4) X10*3/uL Baso # (Auto) 0.0 (0.0-0.2) X10*3/uL Abs Immat Gran (auto) 0.04 H (0.00-0.03) X10*3/uL Absolute Neuts (auto) 10.3 H (2.0-8.3) x10*3/uL Absolute Nucleated RBC 0.000 (0.0-0.012) X10*3/uL Nucleated RBC % (auto) 0.0 (0.0-0.2) /100WBC PT (10.0-13.1) SEC INR (0.9-1.1) VBG pH Cancelled VBG pCO2 Cancelled VBG pO2 Cancelled VBG HCO3 Cancelled VBG O2 Saturation Cancelled VBG Base Excess Cancelled Sodium 139 (135-145) mmol/L Potassium 4.2 (3.3-5.1) mmol/L Chloride 108 (96-108) mmol/L Carbon Dioxide 21 L (22-29) mmol/L Anion Gap 14 (12-20) BUN 38 H (9-16) mg/dL Creatinine 1.10 (0.5-1.4) mg/dL Estim Creat Clear Calc 47.7 Estimated GFR > 60 Random Glucose 119 H (60-115) mg/dL Lactic Acid (0.5-2.0) mmol/L Calcium 7.9 L D (8.4-10.2) mg/dL Total Bilirubin < 0.2 (0.0-1.0) mg/dL AST 25 D (5-37) U/L ALT 28 (0-40) U/L Alkaline Phosphatase 107 D (39-117) U/L Troponin I High Sens (<3.5-35.0) ng/L B-Natriuretic Peptide (<100) pg/mL Total Protein 5.4 L (6.5-8.0) g/dL Albumin 2.8 L (3.5-5.0) g/dL Urine Color Urine Appearance Urine pH (5.0-8.0) Ur Specific [place] (1.005-1.025) Urine Protein (NEG-TRACE) MG/DL Urine Glucose (UA) (NEG) MG/DL Urine Ketones (NEG) MG/DL Urine Blood (NEG) Urine Nitrite (NEG) Ur Leukocyte Esterase (NEG) COVID-19 ([facility]) (Negative) COVID-19 Clin Com 05/14/22 05/14/22 05/14/22 Range/Units 15:05 15:05 15:05 WBC (4.8-10.8) X10*3/uL RBC (4.60-5.80) X10*6/uL Hgb (14.0-18.0) g/dl Hct (42.0-52.0) % MCV (80.0-98.0) fL MCH (27.0-33.0) pg MCHC (31.0-36.0) g/dl RDW (11.0-16.0) % Plt Count (160-400) X10*3/uL MPV (9.4-12.4) fL Immature Gran % (Auto) (0.0-0.4) % Neut % (Auto) (45-73) % Lymph % (Auto) (20-40) % [place] % (Auto) (2-11) % Eos % (Auto) (0-4) % Baso % (Auto) (0-2) % Lymph # (Auto) (1.2-4.9) X10*3/uL [place] # (Auto) (0.1-1.2) X10*3/uL Eos # (Auto) (0.0-0.4) X10*3/uL Baso # (Auto) (0.0-0.2) X10*3/uL Abs Immat Gran (auto) (0.00-0.03) X10*3/uL Absolute Neuts (auto) (2.0-8.3) x10*3/uL Absolute Nucleated RBC (0.0-0.012) X10*3/uL Nucleated RBC % (auto) (0.0-0.2) /100WBC PT 12.7 (10.0-13.1) SEC INR 1.1 (0.9-1.1) VBG pH VBG pCO2 VBG pO2 VBG HCO3 VBG O2 Saturation VBG Base Excess Sodium (135-145) mmol/L Potassium (3.3-5.1) mmol/L Chloride (96-108) mmol/L Carbon Dioxide (22-29) mmol/L Anion Gap (12-20) BUN (9-16) mg/dL Creatinine (0.5-1.4) mg/dL Estim Creat Clear Calc Estimated GFR Random Glucose (60-115) mg/dL Lactic Acid 1.6 (0.5-2.0) mmol/L Calcium (8.4-10.2) mg/dL Total Bilirubin (0.0-1.0) mg/dL AST (5-37) U/L ALT (0-40) U/L Alkaline Phosphatase (39-117) U/L Troponin I High Sens (<3.5-35.0) ng/L B-Natriuretic Peptide 75 (<100) pg/mL Total Protein (6.5-8.0) g/dL Albumin (3.5-5.0) g/dL Urine Color Urine Appearance Urine pH (5.0-8.0) Ur Specific [place] (1.005-1.025) Urine Protein (NEG-TRACE) MG/DL Urine Glucose (UA) (NEG) MG/DL Urine Ketones (NEG) MG/DL Urine Blood (NEG) Urine Nitrite (NEG) Ur Leukocyte Esterase (NEG) COVID-19 ([facility]) (Negative) COVID-19 Clin Com 05/14/22 05/14/22 05/14/22 Range/Units 15:05 15:05 15:11 WBC (4.8-10.8) X10*3/uL RBC (4.60-5.80) X10*6/uL Hgb (14.0-18.0) g/dl Hct (42.0-52.0) % MCV (80.0-98.0) fL MCH (27.0-33.0) pg MCHC (31.0-36.0) g/dl RDW (11.0-16.0) % Plt Count (160-400) X10*3/uL MPV (9.4-12.4) fL Immature Gran % (Auto) (0.0-0.4) % Neut % (Auto) (45-73) % Lymph % (Auto) (20-40) % [place] % (Auto) (2-11) % Eos % (Auto) (0-4) % Baso % (Auto) (0-2) % Lymph # (Auto) (1.2-4.9) X10*3/uL [place] # (Auto) (0.1-1.2) X10*3/uL Eos # (Auto) (0.0-0.4) X10*3/uL Baso # (Auto) (0.0-0.2) X10*3/uL Abs Immat Gran (auto) (0.00-0.03) X10*3/uL Absolute Neuts (auto) (2.0-8.3) x10*3/uL Absolute Nucleated RBC (0.0-0.012) X10*3/uL Nucleated RBC % (auto) (0.0-0.2) /100WBC PT (10.0-13.1) SEC INR (0.9-1.1) VBG pH 7.36 VBG pCO2 35 VBG pO2 165 VBG HCO3 20 L VBG O2 Saturation 99.0 VBG Base Excess -4.1 Sodium (135-145) mmol/L Potassium (3.3-5.1) mmol/L Chloride (96-108) mmol/L Carbon Dioxide (22-29) mmol/L Anion Gap (12-20) BUN (9-16) mg/dL Creatinine (0.5-1.4) mg/dL Estim Creat Clear Calc Estimated GFR Random Glucose (60-115) mg/dL Lactic Acid (0.5-2.0) mmol/L Calcium (8.4-10.2) mg/dL Total Bilirubin (0.0-1.0) mg/dL AST (5-37) U/L ALT (0-40) U/L Alkaline Phosphatase (39-117) U/L Troponin I High Sens 4.4 (<3.5-35.0) ng/L B-Natriuretic Peptide (<100) pg/mL Total Protein (6.5-8.0) g/dL Albumin (3.5-5.0) g/dL Urine Color Urine Appearance Urine pH (5.0-8.0) Ur Specific [place] (1.005-1.025) Urine Protein (NEG-TRACE) MG/DL Urine Glucose (UA) (NEG) MG/DL Urine Ketones (NEG) MG/DL Urine Blood (NEG) Urine Nitrite (NEG) Ur Leukocyte Esterase (NEG) COVID-19 ([facility]) Negative (Negative) COVID-19 Clin Com See Note 05/14/22 Range/Units 15:32 WBC (4.8-10.8) X10*3/uL RBC (4.60-5.80) X10*6/uL Hgb (14.0-18.0) g/dl Hct (42.0-52.0) % MCV (80.0-98.0) fL MCH (27.0-33.0) pg MCHC (31.0-36.0) g/dl RDW (11.0-16.0) % Plt Count (160-400) X10*3/uL MPV (9.4-12.4) fL Immature Gran % (Auto) (0.0-0.4) % Neut % (Auto) (45-73) % Lymph % (Auto) (20-40) % [place] % (Auto) (2-11) % Eos % (Auto) (0-4) % Baso % (Auto) (0-2) % Lymph # (Auto) (1.2-4.9) X10*3/uL [place] # (Auto) (0.1-1.2) X10*3/uL Eos # (Auto) (0.0-0.4) X10*3/uL Baso # (Auto) (0.0-0.2) X10*3/uL Abs Immat Gran (auto) (0.00-0.03) X10*3/uL Absolute Neuts (auto) (2.0-8.3) x10*3/uL Absolute Nucleated RBC (0.0-0.012) X10*3/uL Nucleated RBC % (auto) (0.0-0.2) /100WBC PT (10.0-13.1) SEC INR (0.9-1.1) VBG pH VBG pCO2 VBG pO2 VBG HCO3 VBG O2 Saturation VBG Base Excess Sodium (135-145) mmol/L Potassium (3.3-5.1) mmol/L Chloride (96-108) mmol/L Carbon Dioxide (22-29) mmol/L Anion Gap (12-20) BUN (9-16) mg/dL Creatinine (0.5-1.4) mg/dL Estim Creat Clear Calc Estimated GFR Random Glucose (60-115) mg/dL Lactic Acid (0.5-2.0) mmol/L Calcium (8.4-10.2) mg/dL Total Bilirubin (0.0-1.0) mg/dL AST (5-37) U/L ALT (0-40) U/L Alkaline Phosphatase (39-117) U/L Troponin I High Sens (<3.5-35.0) ng/L B-Natriuretic Peptide (<100) pg/mL Total Protein (6.5-8.0) g/dL Albumin (3.5-5.0) g/dL Urine Color YELLOW Urine Appearance CLEAR Urine pH 5.5 (5.0-8.0) Ur Specific [place] 1.020 (1.005-1.025) Urine Protein NEG (NEG-TRACE) MG/DL Urine Glucose (UA) NEG (NEG) MG/DL Urine Ketones NEG (NEG) MG/DL Urine Blood NEG (NEG) Urine Nitrite NEG (NEG) Ur Leukocyte Esterase NEG (NEG) COVID-19 ([facility]) (Negative) COVID-19 Clin Com ECG Data ECG #1: Attestation: I personally reviewed and interpreted this ECG as follows: Prior ECG tracings: available for review Interpretation: Normal sinus rhythm, HR -64, no STEMI, OH/QRS/QTC are within normal limits. Critical Care Time Critical Care Time Critical Care Time: Yes Total Critical Care Time: 30 Attestation: I personally attest to this time spent taking care of the patient. Discharge Plan Discharge Clinical Impression: Change in mental status, Hypothermia, Pneumonia, Hypoxia, Occipital infarction Patient Disposition: Admitted As Inpatient
[2022-05-14] MEDS: Naloxone HCl 2 MG/2 ML SYRINGE IVPUSH ×2 (14:33→15:14)
--- NOTE | 2022-05-14 14:42 | PC.NURSE ---
Dr. Fenton aware of patients vital signs
[2022-05-14 15:12] LABS: MANUAL DIFF FLAG NO
[2022-05-14 15:14] LABS: Basophils Percent Auto 0.3 % (0-2); Eosinophils Absolute Auto 0.3 X10*3/uL (0.0-0.4); Eosinophils Percent Auto 2.5 % (0-4); Hemoglobin 8.6 g/dl (14.0-18.0); Imm Gran Abs Auto 0.04 X10*3/uL (0.00-0.03); Imm Gran Pct Auto 0.3 % (0.0-0.4); Lymphocytes Absolute Auto 1.9 X10*3/uL (1.2-4.9); Lymphocytes Percent Auto 13.9 % (20-40); Mean Corpuscular HGB Conc 30.7 g/dl (31.0-36.0); Mean Corpuscular Hemoglobin 26.5 pg (27.0-33.0); Mean Corpuscular Volume 86.2 fL (80.0-98.0); Mean Platelet Volume 10.4 fL (9.4-12.4); Monocytes Absolute Auto 0.9 X10*3/uL (0.1-1.2); Monocytes Percent Auto 6.5 % (2-11); Neutrophils Absolute Auto 10.3 x10*3/uL (2.0-8.3); Neutrophils Percent Auto 76.5 % (45-73); Platelet Count 175 X10*3/uL (160-400); Red Blood Count 3.25 X10*6/uL (4.60-5.80); Red Cell Distribution Width 19.6 % (11.0-16.0); White Blood Count 13.5 X10*3/uL (4.8-10.8)
[2022-05-14 15:14] LABS: Venous Blood Gas Refer to POC result
[2022-05-14 15:17] LABS: VBG Base Excess -4.1 mmol/L; VBG HCO3 20 mmol/L (22-26); VBG pCO2 35 mmHg; VBG pH 7.36 (7.32-7.43); VBG pO2 165 mmHg
[2022-05-14 15:20] LABS: INTERNATIONAL NORM RATIO 1.1 (0.9-1.1); Prothrombin Time 12.7 SEC (10.0-13.1)
[2022-05-14 15:31] LABS: Lactic Acid 1.6 mmol/L (0.5-2.0)
[2022-05-14 15:32] LABS: COVID-19 Test Negative (Negative); IDNOW Serial# 16C4AD1C
--- NOTE | 2022-05-14 15:38 | PC.NURSE ---
Addendum entered by Jett Butler 05/14/22 17:18: ordered to wait to start phenylephrine and see how patients BP reacts Addendum entered by Jett Butler 05/14/22 17:12: Dr. Fenton ordered Levophed to be D/Cd Addendum entered by Jett Butler 05/14/22 15:43: Patients BP 129/69. Dr. Fenton instructed to decreased levophed to 0.07 mcg/kg/min Original Note: Levophed started, patients BP 106/72 at 0.09mcg/kg/min. Dr. Fenton notified. Instructed to keep drip at curremt rate
[2022-05-14 15:41] LABS: B Type Natriuretic Peptide 75 pg/mL (<100); Troponin-I High Sensitivity 4.4 ng/L (<3.5-35.0)
[2022-05-14 15:43] LABS: Appearance Urine CLEAR; Color Urine YELLOW; Glucose Urine UA NEG (NEG); Leukocyte Esterase Urine NEG (NEG); Nitrite Urine NEG (NEG); PH 5.5 (5.0-8.0); Urine Blood NEG (NEG); Urine Ketones NEG (NEG); Urine Protein NEG (NEG-TRACE)
[2022-05-14 15:46] LABS: Alanine Aminotransferase 28 U/L (0-40); Albumin Level 2.8 g/dL (3.5-5.0); Alkaline Phosphatase 107 U/L (39-117); Anion Gap 14 (12-20); Aspartate Amino Transferase 25 U/L (5-37); Bilirubin Total < 0.2 mg/dL (0.0-1.0); Blood Urea Nitrogen 38 mg/dL (9-16); Calcium 7.9 mg/dL (8.4-10.2); Carbon Dioxide 21 mmol/L (22-29); Chloride 108 mmol/L (96-108); Creatinine Clr Calc Pharmacy 47.7; Estimated Glomerular Filt Rate > 60; Glucose Random 119 mg/dL (60-115); Potassium 4.2 mmol/L (3.3-5.1); Sodium 139 mmol/L (135-145); Total Protein 5.4 g/dL (6.5-8.0)
[2022-05-14] MEDS: Piperacillin Sodium/Tazobactam 3.375 GM in 0.9 % Sodium Chloride 50 ML IV (17:16)
[2022-05-14] MEDS: 0.9 % Sodium Chloride 1,000 ML 200 ML IVCONT (18:03)
--- NOTE | 2022-05-14 18:11 | PC.NURSE ---
Dr. Fenton at bedside. Trialing IV fluids before starting phenylephrine.
[2022-05-14 18:42] LABS: Amphetamine Screen Urine Not Detected (Not Detect); Barbiturates, Urine Not Detected (Not Detect); Benzodiazepines Screen Urine Not Detected (Not Detect); Cannabinoid Screen Urine Not Detected (Not Detect); Cocaine Screen Urine Not Detected (Not Detect); Fentanyl, urine Not Detected (Not Detect); Opiate Screen Urine Not Detected (Not Detect); Phencyclidine Screen Urine Not Detected (Not Detect)
[2022-05-14] MEDS: Phenylephrine HCL 20 MG in 0.9 % Sodium Chloride 250 ML 25.52 MG IVCONT (18:45)
[2022-05-14] MEDS: Hydrocortisone Sod Succ/PF 100 MG VIAL IVPUSH (18:49)
[2022-05-14 19:02] LABS: Thyroid Stimulating Hormone 5.01 uIU/mL (0.32-4.0)
[2022-05-14 19:47] LABS: Procalcitonin 0.66 ng/mL
[2022-05-14 20:38] LABS: Free T4 (Free Thyroxine) 0.98 ng/dL (0.71-1.85)
--- NOTE | 2022-05-14 21:03 | PC.NURSE ---
DEONNA Reyes instructed to titrate phynelephrine to 0.5 mcg/ kg/min. Ordered to pause NS and give albumin
[2022-05-14] MEDS: Albumin Human 25 % 100 ML IV (21:10)
--- NOTE | 2022-05-14 21:26 | W.PM.CCCN ---
History of Present Illness Data of Consult Service Date: 05/14/22 Primary Care Provider: DO MARNIE Richards Reason for consult: Hypotension PMFSH Past Medical History Medical History Atrial fibrillation COPD (chronic obstructive pulmonary disease) Dementia Malignant neoplasm of prostate Prostate cancer Schizophrenia Family History Family History Other Family history unknown Social History Social History Household Members: Other Housing: Shelter Do you presently have visiting nurse or other home services: No (from snf) Unable to assess alcohol history related to: Unable to respond Alcohol intake: unknown Patient Tobacco Use Status: Tobacco use Unknown Advance Directives: No Advance Directives Information Provided: No service: No Meds Allergies Allergy/AdvReac Type Severity Reaction Status Date / Time No Known Allergies Allergy Unverified 06/19/20 17:10 [No Known Allergies*] Active Medications: Current Medications Phenylephrine HCl 20 mg/ (Sodium Chloride) 252 mls @ 0 mls/hr IVCONT .Q0M TERESE; Protocol Last Titration: 05/14/22 21:02 Dose: 0.5 mcg/kg/min, 25.52 mls/hr Sodium Chloride (Ns) 1,000 mls @ 200 mls/hr IVCONT .Q5H TERESE Stop: 05/14/22 22:59 Last Admin: 05/14/22 18:03 Dose: 200 mls/hr Albumin Human (Kedbumin 25 %) 100 mls @ 100 mls/hr IV Q1H TERESE Stop: 05/14/22 23:59 Last Admin: 05/14/22 21:10 Dose: 100 mls/hr Home Medications Medication Instructions Recorded Confirmed Last Taken Type acetaminophen 325 mg tablet 650 mg PO Q4H PRN PAIN/TEMP 12/30/21 02/13/22 Unknown History aluminum-mag hydroxide-simethicone 30 ml PO Q4H PRN Indigestion 12/30/21 02/13/22 Unknown History 200 mg-200 mg-20 mg/5 mL oral susp atorvastatin 20 mg tablet 20 mg PO BEDTIME 12/30/21 02/13/22 02/05/22 History bisacodyl 10 mg rectal suppository 10 mg MD DAILY PRN Constipation 12/30/21 02/13/22 Unknown History bisacodyl 5 mg tablet 5 mg PO DAILY 12/30/21 02/13/22 02/06/22 History chlorpromazine 25 mg tablet 25 mg PO BID 12/30/21 02/13/22 02/06/22 History chlorpromazine 50 mg tablet 50 mg PO BID 12/30/21 02/13/22 02/06/22 History esomeprazole magnesium 40 mg 40 mg PO BID 12/30/21 02/13/22 02/06/22 History capsule,delayed release (Nexium) gabapentin 100 mg capsule 100 mg PO BID 12/30/21 02/13/22 02/06/22 History haloperidol decanoate 50 mg/mL 10 mg IM Q14D 12/30/21 02/13/22 01/25/22 History intramuscular solution (Haldol Decanoate) ibuprofen 600 mg tablet 600 mg PO Q6H PRN Pain (Scale 12/30/21 02/13/22 Unknown History Score 4-6) lactulose 10 gram/15 mL oral 20 g PO BID 12/30/21 02/13/22 02/06/22 History solution loperamide 2 mg capsule 2 mg PO Q8H PRN Diarrhea 12/30/21 02/13/22 Unknown History multivitamin 1 tab PO DAILY 12/30/21 02/13/22 02/06/22 History ondansetron 4 mg disintegrating 4 mg PO Q4H PRN Nausea And Vomiting 12/30/21 02/13/22 Unknown History tablet propranolol 20 mg tablet 20 mg PO TID 12/30/21 02/13/22 02/06/22 History sennosides 8.6 mg tablet (senna) 8.6 mg PO DAILY PRN Constipation 12/30/21 02/13/22 Unknown History sennosides 8.6 mg-docusate sodium 2 tab-cap PO BID 12/30/21 02/13/22 02/06/22 History 50 mg tablet (Senna Plus) tamsulosin 0.4 mg capsule 0.4 mg PO DAILY@1900 12/30/21 02/13/22 02/05/22 History tramadol 50 mg tablet 50 mg PO BID 12/30/21 02/13/22 02/06/22 History tramadol 50 mg tablet 50 mg PO Q8H PRN Pain (Scale Score 12/30/21 02/13/22 Unknown History 4-6) diazepam 2 mg tablet 2 mg PO Q12H PRN Agitation 02/06/22 02/13/22 Unknown History levothyroxine 75 mcg tablet 75 mcg PO DAILY 02/06/22 02/13/22 02/06/22 History metoclopramide HCl 10 mg tablet 10 mg PO BIDAC 02/06/22 02/13/22 02/06/22 History collagenase clostridium histo. 250 1 appl topical DAILY 02/13/22 02/13/22 Unknown History unit/gram topical ointment (Santyl) levetiracetam 100 mg/mL oral 500 mg PO BID 02/13/22 02/13/22 Unknown History solution Physical Exam Vital Signs: Vital Signs: Last Vital Signs Temp 93.6 F L 05/14/22 20:49 Pulse 77 05/14/22 21:02 Resp 14 05/14/22 20:49 BP 113/65 05/14/22 21:02 Pulse Ox 98 05/14/22 20:49 O2 Del Method 05/14/22 20:49 O2 Flow Rate 3 05/14/22 20:49 Oxygen Flow Rate 2 05/14/22 13:48 BMI result Body Mass Index 22.6 Results Labs CBC & Chem 7: 05/14/22 15:05 05/14/22 15:05 Labs: Short CBC 05/14/22 Range/Units 15:05 WBC 13.5 H (4.8-10.8) X10*3/uL Hgb 8.6 L (14.0-18.0) g/dl Hct 28.0 L (42.0-52.0) % Plt Count 175 D (160-400) X10*3/uL BMP 05/14/22 15:05 Sodium 139 Potassium 4.2 Chloride 108 Carbon Dioxide 21 L BUN 38 H Creatinine 1.10 Calcium 7.9 L D Liver Function 05/14/22 Range/Units 15:05 Total Bilirubin < 0.2 (0.0-1.0) mg/dL AST 25 D (5-37) U/L ALT 28 (0-40) U/L Alkaline Phosphatase 107 D (39-117) U/L Albumin 2.8 L (3.5-5.0) g/dL Urine 05/14/22 Range/Units 15:32 Urine Color YELLOW Urine Appearance CLEAR Urine pH 5.5 (5.0-8.0) Ur Specific [place] 1.020 (1.005-1.025) Urine Protein NEG (NEG-TRACE) MG/DL Urine Glucose (UA) NEG (NEG) MG/DL
--- NOTE | 2022-05-14 21:29 | PC.NURSE ---
Per MD Altamirano, pt is not comfort care and to DC all IV medications.
--- NOTE | 2022-05-14 21:42 | W.MHC.ACPN ---
Advanced Care Planning Note Advanced Care Planning Note Discussed with: family member(s) Time spent (in minutes): 60 Narrative: Given that the patient has no capacity whatsoever of making his decisions or being involved in the decision making of his future goals of care, I had the ethical responsibility to discuss his current clinical scenario, comorbidities, future goals of care to the best of my abilities. I had an extensive discussion? over several phone calls with both the patient's legal guardian Kamila Daley [phone] as well as the patient's only living family member, his niece Emelia [phone] who lives in [place]. ? Although the patient currently has a full code? listed on his [place] [facility] paperwork, since March of this year, they have been filing paperwork to make the patient DNR DNI through the court as this is a legal process, however whenever the patient has been admitted to other hospitals particularly [facility], it was mentioned to me that they have stated their desire not to keep the patient as a full code but DNR DNI and no invasive procedures whatsoever, rather making comfortable? given his significant decline since 2018 and often ask the Geriontologist and IM doctors to evaluate the patient before proceding with anything invasive, their prior decisions and desires have been to not even transfer the patient to the hospital but due to legal paperwork and court dates, they have not yet been able to complete the process. ? Overall the patient is bedbound, full assist, severely contracted at the upper and lower extremities, demented, who has multiple pressure wounds due to his inability to walk, sit or stand who also has difficulty with moving within the bed because of his chronic buttock pressure ulcers as well as heels and ankles.? They are both in agreement that the patient would rather be comfort measures only and although the paper has not gotten to the court, the hope that our clinical decision and evaluation helps further determine what the best goals of care for this patient would be. ? After carefully assessing the patient, his clinical conditions, comorbidities, lifestyle and current presentation, it is my assessment as a clinician that the patient is rather suffering undergoing all these different treatments that are simply prolonging what is inevitable.? Certainly I do not think that the patient needs invasive procedure for the family and guardian stated that he would not even want a central line placed never mind intubation. ? I believed this is inhumane, unethical and futile to this patient, at this point all the above information has been discussed with the ER physician Dr Altamirano who also agrees with my clinical impression and assessment. ? We are in agreement that this patient would rather benefit from being made comfortable for he currently he is not improving despite of peripheral vasopressors, which can not be administered for a prolonged period of time without a central line, his core temperature it is barely 93 degrees F despite of over 4 hours on the Miguel Hugger, multiple IV fluids L, antibiotics and other measures that had been already taking earlier on. ? It is our clinical decision that the patient at this point will be comfort measures only and will be admitted to the hospitalist's service.? All of the above information was given back to both the patient's niece as well as the patient's legal guardian were in clear understanding and agreement. ? Please note that these a decision is made on 2 clinician evaluation, assessment and decision based on what is best and ethical for this patient; Dr Altamirano and I; in addition to the families wish and the agreement of our decision by the guardian, it is all this supported by AMA principles of medical ethics I, III, VIII on the basis of medical futility. ? Total time spent with this? patient, reviewing the chart, speaking to the other clinician as well as family members 60 minutes? of noncritical care time ? ? Case was discussed with Dr. Cosme
--- NOTE | 2022-05-14 22:34 | PM.IMHP ---
History of Present Illness Date of Service: 05/14/22 Chief Complaint: hypothermia, encephalopathy This is an 82-year-old male who was a resident of [facility] with history of COPD dementia, AFib, prostate cancer, and schizophrenia who was sent into the hospital as he was found unresponsive. Patient was also found hypothermic in the ED as well as hypotensive. [facility]CA was consulted for admission to the ICU as patient was initially full code, but after evaluation, ICU PA , with agreement with the ED physician and discussion with legal guardian as well as patient's only living relative, patient was made comfort measures. According to the PA note documents have been filed by legal guardian to change patient's code status to DNR DNI but that has not been done yet. After extensive discussion with the legal guardian , PA, ED physician, niece and legal guardian alcohol monitor groomed alert patient needs to be comfort measures only and therefore patient will be admitted for comfort Review of Systems Review of Systems: Yes Unobtainable due to mental condition and Unobtainable due to mental status PMFSH Medical History Atrial fibrillation COPD (chronic obstructive pulmonary disease) Dementia Malignant neoplasm of prostate Prostate cancer Schizophrenia Family History Other Family history unknown Social History Household Members: Other Housing: Custodial Do you presently have visiting nurse or other home services: No (from snf) Unable to assess alcohol history related to: Unable to respond Alcohol intake: unknown Patient Tobacco Use Status: Tobacco use Unknown Advance Directives: No Advance Directives Information Provided: No service: No Meds Allergies Allergy/AdvReac Type Severity Reaction Status Date / Time No Known Allergies Allergy Unverified 06/19/20 17:10 [No Known Allergies*] Active Medications: Current Medications Phenylephrine HCl 20 mg/ (Sodium Chloride) 252 mls @ 0 mls/hr IVCONT .Q0M TERESE; Protocol Last Titration: 05/14/22 21:29 Dose: 0 mcg/kg/min, 0 mls/hr Sodium Chloride (Ns) 1,000 mls @ 200 mls/hr IVCONT .Q5H TERESE Stop: 05/14/22 22:59 Last Admin: 05/14/22 18:03 Dose: 200 mls/hr Albumin Human (Kedbumin 25 %) 100 mls @ 100 mls/hr IV Q1H TERESE Stop: 05/14/22 23:59 Last Infusion: 05/14/22 21:30 Dose: 0 mls/hr Home Medications Medication Instructions Recorded Confirmed Last Taken Type acetaminophen 325 mg tablet 650 mg PO Q4H PRN PAIN/TEMP 12/30/21 02/13/22 Unknown History aluminum-mag hydroxide-simethicone 30 ml PO Q4H PRN Indigestion 12/30/21 02/13/22 Unknown History 200 mg-200 mg-20 mg/5 mL oral susp atorvastatin 20 mg tablet 20 mg PO BEDTIME 12/30/21 02/13/22 02/05/22 History bisacodyl 10 mg rectal suppository 10 mg LA DAILY PRN Constipation 12/30/21 02/13/22 Unknown History bisacodyl 5 mg tablet 5 mg PO DAILY 12/30/21 02/13/22 02/06/22 History chlorpromazine 25 mg tablet 25 mg PO BID 12/30/21 02/13/22 02/06/22 History chlorpromazine 50 mg tablet 50 mg PO BID 12/30/21 02/13/22 02/06/22 History esomeprazole magnesium 40 mg 40 mg PO BID 12/30/21 02/13/22 02/06/22 History capsule,delayed release (Nexium) gabapentin 100 mg capsule 100 mg PO BID 12/30/21 02/13/22 02/06/22 History haloperidol decanoate 50 mg/mL 10 mg IM Q14D 12/30/21 02/13/22 01/25/22 History intramuscular solution (Haldol Decanoate) ibuprofen 600 mg tablet 600 mg PO Q6H PRN Pain (Scale 12/30/21 02/13/22 Unknown History Score 4-6) lactulose 10 gram/15 mL oral 20 g PO BID 12/30/21 02/13/22 02/06/22 History solution loperamide 2 mg capsule 2 mg PO Q8H PRN Diarrhea 12/30/21 02/13/22 Unknown History multivitamin 1 tab PO DAILY 12/30/21 02/13/22 02/06/22 History ondansetron 4 mg disintegrating 4 mg PO Q4H PRN Nausea And Vomiting 12/30/21 02/13/22 Unknown History tablet propranolol 20 mg tablet 20 mg PO TID 12/30/21 02/13/22 02/06/22 History sennosides 8.6 mg tablet (senna) 8.6 mg PO DAILY PRN Constipation 12/30/21 02/13/22 Unknown History sennosides 8.6 mg-docusate sodium 2 tab-cap PO BID 12/30/21 02/13/22 02/06/22 History 50 mg tablet (Senna Plus) tamsulosin 0.4 mg capsule 0.4 mg PO DAILY@1900 12/30/21 02/13/22 02/05/22 History tramadol 50 mg tablet 50 mg PO BID 12/30/21 02/13/22 02/06/22 History tramadol 50 mg tablet 50 mg PO Q8H PRN Pain (Scale Score 12/30/21 02/13/22 Unknown History 4-6) diazepam 2 mg tablet 2 mg PO Q12H PRN Agitation 02/06/22 02/13/22 Unknown History levothyroxine 75 mcg tablet 75 mcg PO DAILY 02/06/22 02/13/22 02/06/22 History metoclopramide HCl 10 mg tablet 10 mg PO BIDAC 02/06/22 02/13/22 02/06/22 History collagenase clostridium histo. 250 1 appl topical DAILY 02/13/22 02/13/22 Unknown History unit/gram topical ointment (Santyl) levetiracetam 100 mg/mL oral 500 mg PO BID 02/13/22 02/13/22 Unknown History solution Physical Exam Vital Signs and Narrative: Vital Signs: Last Vital Signs Temp 93.6 F L 05/14/22 20:49 Pulse 77 05/14/22 21:02 Resp 14 05/14/22 20:49 BP 113/65 05/14/22 21:02 Pulse Ox 98 05/14/22 20:49 O2 Del Method 05/14/22 20:49 O2 Flow Rate 3 05/14/22 20:49 Oxygen Flow Rate 2 05/14/22 13:48 BMI result Body Mass Index 22.6 Eyes: General: appearance normal, both eyes and all related structures Resp: Effort & Inspection: normal respiratory effort Cardio: Rate: regular rate Rhythm: regular rhythm GI: Palpation (GI): Soft to palpation Auscultation: normal bowel sounds Extrem: General: Yes normal to inspection and Yes no pedal edema Results Labs CBC and Chem 7: 05/14/22 15:05 05/14/22 15:05 Labs: Laboratory Results - last 24 hr 05/14/22 05/14/22 05/14/22 15:04 15:04 15:05 MCV 86.2 MCH 26.5 L MCHC 30.7 L RDW 19.6 H Plt Count 175 D MPV 10.4 Immature Gran % (Auto) 0.3 Neut % (Auto) 76.5 H Lymph % (Auto) 13.9 L [place] % (Auto) 6.5 Eos % (Auto) 2.5 Baso % (Auto) 0.3 Lymph # (Auto) 1.9 [place] # (Auto) 0.9 Eos # (Auto) 0.3 Baso # (Auto) 0.0 Abs Immat Gran (auto) 0.04 H Absolute Neuts (auto) 10.3 H Absolute Nucleated RBC 0.000 Nucleated RBC % (auto) 0.0 PT INR VBG pH Cancelled VBG pCO2 Cancelled VBG pO2 Cancelled VBG HCO3 Cancelled VBG O2 Saturation Cancelled VBG Base Excess Cancelled Anion Gap Estim Creat Clear Calc Estimated GFR Random Glucose Lactic Acid Calcium Total Bilirubin AST ALT Alkaline Phosphatase B-Natriuretic Peptide Total Protein Albumin Procalcitonin 0.66 TSH Free T4 Urine Color Urine Appearance Urine pH Ur Specific [place] Urine Protein Urine Glucose (UA) Urine Ketones Urine Blood Urine Nitrite Ur Leukocyte Esterase Urine Opiates Screen Urine Fentanyl Screen Ur Barbiturates Screen Ur Phencyclidine Scrn Ur Amphetamines Screen U Benzodiazepines Scrn Urine Cocaine Screen U Marijuana (THC) Screen COVID-19 ([facility]) COVID-19 Clin Com 05/14/22 05/14/22 05/14/22 15:05 15:05 15:05 MCV MCH MCHC RDW Plt Count MPV Immature Gran % (Auto) Neut % (Auto) Lymph % (Auto) [place] % (Auto) Eos % (Auto) Baso % (Auto) Lymph # (Auto) [place] # (Auto) Eos # (Auto) Baso # (Auto) Abs Immat Gran (auto) Absolute Neuts (auto) Absolute Nucleated RBC Nucleated RBC % (auto) PT 12.7 INR 1.1 VBG pH VBG pCO2 VBG pO2 VBG HCO3 VBG O2 Saturation VBG Base Excess Anion Gap 14 Estim Creat Clear Calc 47.7 Estimated GFR > 60 Random Glucose 119 H Lactic Acid Calcium 7.9 L D Total Bilirubin < 0.2 AST 25 D ALT 28 Alkaline Phosphatase 107 D B-Natriuretic Peptide 75 Total Protein 5.4 L Albumin 2.8 L Procalcitonin TSH 5.01 H Free T4 0.98 Urine Color Urine Appearance Urine pH Ur Specific [place] Urine Protein Urine Glucose (UA) Urine Ketones Urine Blood Urine Nitrite Ur Leukocyte Esterase Urine Opiates Screen Urine Fentanyl Screen Ur Barbiturates Screen Ur Phencyclidine Scrn Ur Amphetamines Screen U Benzodiazepines Scrn Urine Cocaine Screen U Marijuana (THC) Screen COVID-19 ([facility]OPER) COVID-19 ice Com 05/14/22 05/14/22 05/14/22 15:05 15:05 15:11 MCV MCH MCHC RDW Plt Count MPV Immature Gran % (Auto) Neut % (Auto) Lymph % (Auto) [place] % (Auto) Eos % (Auto) Baso % (Auto) Lymph # (Auto) [place] # (Auto) Eos # (Auto) Baso # (Auto) Abs Immat Gran (auto) Absolute Neuts (auto) Absolute Nucleated RBC Nucleated RBC % (auto) PT INR VBG pH 7.36 VBG pCO2 35 VBG pO2 165 VBG HCO3 20 L VBG O2 Saturation 99.0 VBG Base Excess -4.1 Anion Gap Estim Creat Clear Calc Estimated GFR Random Glucose Lactic Acid 1.6 Calcium Total Bilirubin AST ALT Alkaline Phosphatase B-Natriuretic Peptide Total Protein Albumin Procalcitonin TSH Free T4 Urine Color Urine Appearance Urine pH Ur Specific [place] Urine Protein Urine Glucose (UA) Urine Ketones Urine Blood Urine Nitrite Ur Leukocyte Esterase Urine Opiates Screen Urine Fentanyl Screen Ur Barbiturates Screen Ur Phencyclidine Scrn Ur Amphetamines Screen U Benzodiazepines Scrn Urine Cocaine Screen U Marijuana (THC) Screen COVID-19 ([facility]) Negative COVID-19 Scloby See Note 05/14/22 05/14/22 15:32 15:32 MCV MCH MCHC RDW Plt Count MPV Immature Gran % (Auto) Neut % (Auto) Lymph % (Auto) [place] % (Auto) Eos % (Auto) Baso % (Auto) Lymph # (Auto) [place] # (Auto) Eos # (Auto) Baso # (Auto) Abs Immat Gran (auto) Absolute Neuts (auto) Absolute Nucleated RBC Nucleated RBC % (auto) PT INR VBG pH VBG pCO2 VBG pO2 VBG HCO3 VBG O2 Saturation VBG Base Excess Anion Gap Estim Creat Clear Calc Estimated GFR Random Glucose Lactic Acid Calcium Total Bilirubin AST ALT Alkaline Phosphatase B-Natriuretic Peptide Total Protein Albumin Procalcitonin TSH Free T4 Urine Color YELLOW Urine Appearance CLEAR Urine pH 5.5 Ur Specific [place] 1.020 Urine Protein NEG Urine Glucose (UA) NEG Urine Ketones NEG Urine Blood NEG Urine Nitrite NEG Ur Leukocyte Esterase NEG Urine Opiates Screen Not Detected Urine Fentanyl Screen Not Detected Ur Barbiturates Screen Not Detected Ur Phencyclidine Scrn Not Detected Ur Amphetamines Screen Not Detected U Benzodiazepines Scrn Not Detected Urine Cocaine Screen Not Detected U Marijuana (THC) Screen Not Detected COVID-19 ([facility]) COVID-19 Clin Com Imaging Radiologist's Impressions: Impressions Chest X-Ray 05/14/22 14:35 IMPRESSION: Partially expanded lungs with increased reticular nodular interstitial changes in both lungs, stable. No new findings when compared to 02/13/2022. Abdomen/Pelvis CT 05/14/22 16:46 IMPRESSION: 1. Development of numerous qhby-lw-rng-like nodular opacities within both lungs and larger scattered ill-defined pulmonary nodules, mild bronchial wall thickening and possible mild cystic bronchiectasis in the left upper lobe. Differential considerations include bronchopneumonia or sequela of aspiration. 2. No lobar consolidation or effusions. 3. Large amount of formed stool throughout the colon including a large stool ball distending the rectum. Correlate clinically with signs or symptoms of constipation/obstipation and mild stercoral colitis. 4. No other acute intra-abdominal process. 5. Resolution of previously seen right adrenal hematoma. Small bilateral adrenal nodules are present, likely adenomas. Chest CT 05/14/22 16:46 IMPRESSION: 1. Development of numerous zobj-ic-oto-like nodular opacities within both lungs and larger scattered ill-defined pulmonary nodules, mild bronchial wall thickening and possible mild cystic bronchiectasis in the left upper lobe. Differential considerations include bronchopneumonia or sequela of aspiration. 2. No lobar consolidation or effusions. 3. Large amount of formed stool throughout the colon including a large stool ball distending the rectum. Correlate clinically with signs or symptoms of constipation/obstipation and mild stercoral colitis. 4. No other acute intra-abdominal process. 5. Resolution of previously seen right adrenal hematoma. Small bilateral adrenal nodules are present, likely adenomas. Head CT 05/14/22 16:46 IMPRESSION: 1. Exam quality degraded by patient motion artifact. 2. No intracranial hemorrhage, mass, or acute edematous territorial infarct identified. 2. Unchanged cerebral atrophy and chronic small vessel ischemic white matter change. Assessment and Plan (1) Comfort measures only status: Status: Acute (2) Encephalopathy: Status: Acute Plan 82-year-old male from [facility] who presents to the hospital with encephalopathy is being admitted for comfort measures only Patient is obtunded and unable to give much history. Patient's legal guardian. Patient was evaluated by ICU for admission but was converted to comfort measures. Please see note of Mr. Reyes for further details Quality Stroke Does the patient have a stroke diagnosis?: No VTE Prior VTE?: No VTE Risk Level:: Medical - moderate - high VTE Device Contraindication: Treatment Not Indicated VTE Drug Contraindication: N/A - Med Ordered
[2022-05-15] VITALS: BP 121/64; PULSE 104; RESP 17; TEMP 35.1; O2SAT 97
[2022-05-15] MEDS: Morphine Sulfate 4 MG/ML CARTRIDGE IVPUSH (01:19)
[2022-05-15] MEDS: ondansetron HCL 4 MG/2 ML VIAL IVPUSH (01:19)
[2022-05-15] MEDS: Scopolamine 1.5 MG PATCH.TD.3 TRANSDERMA (01:40)
[2022-05-15 06:32] VITALS: BP 129/65; PULSE 102; RESP 19; TEMP 36.1; O2SAT 95
[2022-05-15 07:33] VITALS: BP 116/59; PULSE 103; TEMP 36.4; O2SAT 97
--- NOTE | 2022-05-15 08:34 | MHC.CM.PN ---
Addendum entered by Breanna Sorensen 05/15/22 12:54: PT WILL REMAIN INPT THROUGH THE WEEKEND AND RETURN TO [facility] TUESDAY OR TUESDAY PENDING CODE STATUS CHANGE WITH THE COURTS TO BE FILED BY PTS GUARDIAN Addendum entered by Breanna Sorensen 05/15/22 11:58: [facility] HAS CONFIRMED THEY ARE ABLE TO ACCEPT PT BACK TODAY TRANSPORT WAS REQUESTED FOR 1400 HOURS Addendum entered by Breanna Sorensen 05/15/22 10:40: PT COULD POTENTIALLY RETURN TO [facility] [place] TODAY [facility] UPDATED VIA [employer] AWAITING FOR THEIR CONFIRMATION THAT THEY CAN ACCEPT TODAY PT WILL NEED BLS TRANSPORT MESSAGE LEFT FOR PTS GUARDIAN DELIVERING MEDICARE RIGHTS AND INFORMING HER OF POTENTIAL DC Original Note: PT IS A LTC RESIDENT OF [facility] [place] PT NOW [facility] STATUS LEGAL GUARDIAN IS SHANEKA MORE [phone] CM WILL CALL GUARDIAN LATER THIS MORNING PCP: SERENA DE LEON IMM WILL BE DELIVERED VIA T/C TO GUARDIAN DCP TBD [facility] INPT VS RETURN TO [facility]
--- NOTE | 2022-05-15 08:50 | PHA.MEDREC ---
Pharmacy Consult ? Medication Reconciliation Pharmacy has completed the medication reconciliation. MED ORDER SUMMARY FROM SATYA BRYAN BROOKLYN
[2022-05-15 10:00] VITALS: BP 106/53; PULSE 113; O2SAT 91
--- NOTE | 2022-05-15 12:14 | PC.NURSE ---
pt alert, sleeping but easily awake when his name is called. pt yelled at this rn and attempted to hit during care. f/c output 2500 ml. pt resting quietly, no apparent distress.
--- NOTE | 2022-05-15 14:44 | PC.NURSE ---
report given to LONNY Rodriguez. Transporter aware.
--- NOTE | 2022-05-15 15:06 | HO.PM.IMPN ---
Subjective Subjective Date of Service: 05/15/22 Interval History: Seen and evaluated More alert and interactive but does not make any sense when he speak Requiring 2 L of oxygen, blood pressure has improved overnight Review of Systems Review of Systems: Yes Unobtainable due to mental status Physical Exam Vital Signs: Vital Signs: Last Vital Signs Temp 97.5 F 05/15/22 07:33 Pulse 113 H 05/15/22 10:00 Resp 19 05/15/22 06:32 BP 106/53 L 05/15/22 10:00 Pulse Ox 91 L 05/15/22 10:00 O2 Del Method 05/15/22 10:00 O2 Flow Rate 2 05/15/22 10:00 Oxygen Flow Rate 2 05/14/22 13:48 BMI result Body Mass Index 22.6 Const: Other: Constitutional : Alert with stimulation, contracted and does not make much of since speaking Neck : Normal inspection, Supple Cardiovascular : RRR, no JVP, no lower extremity edema, tachycardia Respiratory : fair bilateral air entry, basal bilateral crackles, on oxygen supplement Gastrointestinal: soft, lax, Normal bowel sounds, Non tender Skin : Warm, Dry, multiple wounds on the left hip, feet and ankle areas Neurological : Alert with stimulation, confused, does not follow commands, contracted Objective Data Active Medications Acetaminophen (Acetaminophen 325 Mg Tablet) 650 mg PO Q6H PRN PRN Reason: Pain, Mild (Pain Scale 1-3) Lorazepam (Lorazepam 0.5 Mg Tablet) 0.5 mg SUBLINGUAL Q4H PRN PRN Reason: anxiety/restlessness Morphine Sulfate (Morphine Sulfate 4 Mg/Ml Cartridge) 4 mg IVPUSH Q4H PRN; Protocol PRN Reason: Pain, Severe (Pain Scale 7-10) Last Admin: 05/15/22 01:19 Dose: 4 mg Documented By: VIRGILIO Ondansetron HCl (Ondansetron Hcl 4 Mg/2 Ml Vial) 4 mg IVPUSH Q8H PRN PRN Reason: Nausea and Vomiting Last Admin: 05/15/22 01:19 Dose: 4 mg Documented By: VIRGILIO Scopolamine (Scopolamine 1.5 Mg Patch.Td.3) 1.5 mg TRANSDERMA Q72H TERESE Last Admin: 05/15/22 01:40 Dose: 1.5 mg Documented By: VIRGILIO Sodium Chloride (0.9 % Sodium Chloride Flush 3 Ml Syringe) 3 ml IVFLUSH QSHIFT PENDING SALE TO [facility] Last Admin: 05/15/22 07:32 Dose: Not Given Documented By: DIONISIO Non-Admin Reason: Patient Asleep Labs CBC & Chem 7: 05/14/22 15:05 05/14/22 15:05 Labs: Laboratory Results - last 24 hr 05/14/22 05/14/22 05/14/22 15:04 15:04 15:05 MCV 86.2 MCH 26.5 L MCHC 30.7 L RDW 19.6 H Plt Count 175 D MPV 10.4 Immature Gran % (Auto) 0.3 Neut % (Auto) 76.5 H Lymph % (Auto) 13.9 L Cooke % (Auto) 6.5 Eos % (Auto) 2.5 Baso % (Auto) 0.3 Lymph # (Auto) 1.9 Cooke # (Auto) 0.9 Eos # (Auto) 0.3 Baso # (Auto) 0.0 Abs Immat Gran (auto) 0.04 H Absolute Neuts (auto) 10.3 H Absolute Nucleated RBC 0.000 Nucleated RBC % (auto) 0.0 PT INR VBG pH Cancelled VBG pCO2 Cancelled VBG pO2 Cancelled VBG HCO3 Cancelled VBG O2 Saturation Cancelled VBG Base Excess Cancelled Anion Gap Estim Creat Clear Calc Estimated GFR Random Glucose Lactic Acid Calcium Total Bilirubin AST ALT Alkaline Phosphatase B-Natriuretic Peptide Total Protein Albumin Procalcitonin 0.66 TSH Free T4 Urine Color Urine Appearance Urine pH Ur Specific [place] Urine Protein Urine Glucose (UA) Urine Ketones Urine Blood Urine Nitrite Ur Leukocyte Esterase Urine Opiates Screen Urine Fentanyl Screen Ur Barbiturates Screen Ur Phencyclidine Scrn Ur Amphetamines Screen U Benzodiazepines Scrn Urine Cocaine Screen U Marijuana (THC) Screen COVID-19 ([facility]) COVID-19 Clin Com 05/14/22 05/14/22 05/14/22 15:05 15:05 15:05 MCV MCH MCHC RDW Plt Count MPV Immature Gran % (Auto) Neut % (Auto) Lymph % (Auto) [place] % (Auto) Eos % (Auto) Baso % (Auto) Lymph # (Auto) [place] # (Auto) Eos # (Auto) Baso # (Auto) Abs Immat Gran (auto) Absolute Neuts (auto) Absolute Nucleated RBC Nucleated RBC % (auto) PT 12.7 INR 1.1 VBG pH VBG pCO2 VBG pO2 VBG HCO3 VBG O2 Saturation VBG Base Excess Anion Gap 14 Estim Creat Clear Calc 47.7 Estimated GFR > 60 Random Glucose 119 H Lactic Acid Calcium 7.9 L D Total Bilirubin < 0.2 AST 25 D ALT 28 Alkaline Phosphatase 107 D B-Natriuretic Peptide 75 Total Protein 5.4 L Albumin 2.8 L Procalcitonin TSH 5.01 H Free T4 0.98 Urine Color Urine Appearance Urine pH Ur Specific [place] Urine Protein Urine Glucose (UA) Urine Ketones Urine Blood Urine Nitrite Ur Leukocyte Esterase Urine Opiates Screen Urine Fentanyl Screen Ur Barbiturates Screen Ur Phencyclidine Scrn Ur Amphetamines Screen U Benzodiazepines Scrn Urine Cocaine Screen U Marijuana (THC) Screen COVID-19 ([facility]) COVID-19 Clin Com 05/14/22 05/14/22 05/14/22 15:05 15:05 15:11 MCV MCH MCHC RDW Plt Count MPV Immature Gran % (Auto) Neut % (Auto) Lymph % (Auto) [place] % (Auto) Eos % (Auto) Baso % (Auto) Lymph # (Auto) [place] # (Auto) Eos # (Auto) Baso # (Auto) Abs Immat Gran (auto) Absolute Neuts (auto) Absolute Nucleated RBC Nucleated RBC % (auto) PT INR VBG pH 7.36 VBG pCO2 35 VBG pO2 165 VBG HCO3 20 L VBG O2 Saturation 99.0 VBG Base Excess -4.1 Anion Gap Estim Creat Clear Calc Estimated GFR Random Glucose Lactic Acid 1.6 Calcium Total Bilirubin AST ALT Alkaline Phosphatase B-Natriuretic Peptide Total Protein Albumin Procalcitonin TSH Free T4 Urine Color Urine Appearance Urine pH Ur Specific [place] Urine Protein Urine Glucose (UA) Urine Ketones Urine Blood Urine Nitrite Ur Leukocyte Esterase Urine Opiates Screen Urine Fentanyl Screen Ur Barbiturates Screen Ur Phencyclidine Scrn Ur Amphetamines Screen U Benzodiazepines Scrn Urine Cocaine Screen U Marijuana (THC) Screen COVID-19 ([facility]) Negative COVID-19 Clin Com See Note 05/14/22 05/14/22 15:32 15:32 MCV MCH MCHC RDW Plt Count MPV Immature Gran % (Auto) Neut % (Auto) Lymph % (Auto) [place] % (Auto) Eos % (Auto) Baso % (Auto) Lymph # (Auto) [place] # (Auto) Eos # (Auto) Baso # (Auto) Abs Immat Gran (auto) Absolute Neuts (auto) Absolute Nucleated RBC Nucleated RBC % (auto) PT INR VBG pH VBG pCO2 VBG pO2 VBG HCO3 VBG O2 Saturation VBG Base Excess Anion Gap Estim Creat Clear Calc Estimated GFR Random Glucose Lactic Acid Calcium Total Bilirubin AST ALT Alkaline Phosphatase B-Natriuretic Peptide Total Protein Albumin Procalcitonin TSH Free T4 Urine Color YELLOW Urine Appearance CLEAR Urine pH 5.5 Ur Specific [place] 1.020 Urine Protein NEG Urine Glucose (UA) NEG Urine Ketones NEG Urine Blood NEG Urine Nitrite NEG Ur Leukocyte Esterase NEG Urine Opiates Screen Not Detected Urine Fentanyl Screen Not Detected Ur Barbiturates Screen Not Detected Ur Phencyclidine Scrn Not Detected Ur Amphetamines Screen Not Detected U Benzodiazepines Scrn Not Detected Urine Cocaine Screen Not Detected U Marijuana (THC) Screen Not Detected COVID-19 ([facility]) COVID-19 Clin Com Assessment and Plan (1) Encephalopathy: Status: Acute (2) Hypothermia: Status: Acute (3) Pneumonia: Status: Acute (4) Hypoxia: Status: Acute Plan an 82-year-old male who was a resident of [facility] with history of COPD dementia, AFib, prostate cancer, and schizophrenia who was sent into the hospital as he was found unresponsive. Hypothermia secondary to infection Improving 1 per Daphnie to treat underlying infection Hypoxia secondary to aspiration pneumonia Oxygen supplement, to wean down as tolerated Pending blood cultures IV Zosyn for now Toxic metabolic encephalopathy aggressive at baseline per the facility More alert today Treat underlying infection with recurrent treat erection Hypotension Secondary to infection, possible medications Improving Give IV fluid and monitor response # swallowing problem Secondary to altered mentation To get speech therapy eval before starting any diet # schizophrenia continue antipsychotics DVT prophylaxis Heparin subQ The patient will need to stay overnight in the hospital to continue evaluation and treatment of altered mentation, sepsis and aspiration pneumonia pending final blood culture results giving high chance of decompensation in to severe sepsis. 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 The patient vitals improved overnight and he became more alert and interactive. 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 Quality Stroke Does the patient have a stroke diagnosis?: No VTE Prior VTE?: No VTE Risk Level:: Medical - moderate - high VTE Device Contraindication: Treatment Not Indicated VTE Drug Contraindication: N/A - Med Ordered
[2022-05-15 15:38] VITALS: BMI 20.9
[2022-05-15] MEDS: 0.9 % Sodium Chloride Flush 3 ML SYRINGE IVFLUSH (15:45)
[2022-05-15] MEDS: Lactated Ringers 1,000 ML 80 ML IVCONT (16:35)
[2022-05-15 16:40] VITALS: BP 109/54; PULSE 95; RESP 18; TEMP 36.6; O2SAT 98
[2022-05-15] MEDS: Tamsulosin HCL 0.4 MG CAPSULE PO (17:26)
[2022-05-15] MEDS: Metoclopramide HCl 10 MG TABLET PO (17:26)
[2022-05-15] MEDS: bisacodyL 10 MG SUPP.RECT PR (17:27)
[2022-05-15] MEDS: levETIRAcetam in NaCl (iso-os) 500 MG/100 ML PIGGYBACK 400 MG IV (18:39)
[2022-05-15] MEDS: Atorvastatin Calcium 20 MG TABLET PO (19:15)
[2022-05-15] MEDS: Gabapentin 100 MG CAPSULE PO (19:15)
[2022-05-15] MEDS: Propranolol HCL 20 MG TABLET PO (19:15)
[2022-05-15] MEDS: bisacodyL 5 MG TABLET.DR PO (19:15)
[2022-05-15] MEDS: Lactulose 20 GM/30 ML SOLUTION PO (19:16)
[2022-05-15] MEDS: Sennosides/Docusate Sodium TABLET 2 TAB PO (19:18)
[2022-05-15 19:35] VITALS: BP 118/59; PULSE 98; RESP 18; TEMP 36.5; O2SAT 99
[2022-05-16] MEDS: Piperacillin Sodium/Tazobactam 3.375 GM in 0.9 % Sodium Chloride 50 ML IV ×5 (01:17→23:14)
[2022-05-16] MEDS: levETIRAcetam in NaCl (iso-os) 500 MG/100 ML PIGGYBACK 400 MG IV (05:59)
[2022-05-16] MEDS: Lactated Ringers 1,000 ML 80 ML IVCONT (05:59)
[2022-05-16 06:12] LABS: Hematocrit 31.1 % (42.0-52.0); Hemoglobin 9.6 g/dl (14.0-18.0); Mean Corpuscular HGB Conc 30.9 g/dl (31.0-36.0); Mean Corpuscular Hemoglobin 26.4 pg (27.0-33.0); Mean Corpuscular Volume 85.7 fL (80.0-98.0); Mean Platelet Volume 10.3 fL (9.4-12.4); Platelet Count 213 X10*3/uL (160-400); Red Blood Count 3.63 X10*6/uL (4.60-5.80); White Blood Count 7.9 X10*3/uL (4.8-10.8)
[2022-05-16 06:52] LABS: Anion Gap 13 (12-20); Blood Urea Nitrogen 21 mg/dL (9-16); Calcium 8.9 mg/dL (8.4-10.2); Carbon Dioxide 25 mmol/L (22-29); Chloride 110 mmol/L (96-108); Creatinine Clr Calc Pharmacy 62.9; Estimated Glomerular Filt Rate > 60; Glucose Random 70 mg/dL (60-115); Potassium 4.4 mmol/L (3.3-5.1); Sodium 144 mmol/L (135-145)
[2022-05-16 08:00] VITALS: BP 129/70; PULSE 100; RESP 17; TEMP 36.9; O2SAT 99
[2022-05-16] MEDS: Multivitamin TABLET 1 TAB PO (09:42)
[2022-05-16] MEDS: Metoclopramide HCl 10 MG TABLET PO ×2 (09:42→15:38)
[2022-05-16] MEDS: Sennosides/Docusate Sodium TABLET 2 TAB PO ×2 (09:42→20:40)
[2022-05-16] MEDS: Aspirin 81 MG TAB.CHEW PO (09:42)
[2022-05-16] MEDS: Gabapentin 100 MG CAPSULE PO ×2 (09:42→20:41)
[2022-05-16] MEDS: Lactulose 20 GM/30 ML SOLUTION PO ×2 (09:42→20:40)
[2022-05-16] MEDS: Propranolol HCL 20 MG TABLET PO ×3 (09:42→20:41)
--- NOTE | 2022-05-16 11:24 | HO.PM.IMPN ---
Subjective Subjective Date of Service: 05/16/22 Interval History: Seen and evaluated More alert and interactive but does not make any sense when he speak Aggressive and agitated upon waking up Requiring 2 L of oxygen, blood pressure has improved overnight Review of Systems Review of Systems: Yes Unobtainable due to mental status Physical Exam Vital Signs: Vital Signs: Last Vital Signs Temp 98.5 F 05/16/22 08:00 Pulse 100 05/16/22 08:00 Resp 17 05/16/22 08:00 BP 129/70 05/16/22 08:00 Pulse Ox 99 05/16/22 08:00 O2 Del Method 05/16/22 08:00 O2 Flow Rate 2.0 05/16/22 08:00 Oxygen Flow Rate 2 05/14/22 13:48 BMI result Body Mass Index 20.9 Const: Other: Constitutional : Alert with stimulation, contracted and does not make much of since speaking Neck : Normal inspection, Supple Cardiovascular : RRR, no JVP, no lower extremity edema, tachycardia Respiratory : fair bilateral air entry, basal bilateral crackles, on oxygen supplement Gastrointestinal: soft, lax, Normal bowel sounds, Non tender Skin : Warm, Dry, multiple wounds on the left hip, feet and ankle areas Neurological : Alert with stimulation, confused, does not follow commands, contracted Objective Data Active Medications Acetaminophen (Acetaminophen 325 Mg Tablet) 650 mg PO Q6H PRN PRN Reason: Pain, Mild (Pain Scale 1-3) Acetaminophen (Acetaminophen 325 Mg Tablet) 650 mg PO Q4H PRN PRN Reason: PAIN/TEMP Al Hydroxide/Mg Hydroxide (Magnesium Hydrox/Alum Hydrox 30 Ml Oral.Susp) 30 ml PO Q4H PRN PRN Reason: Indigestion Aspirin (Aspirin 81 Mg Tab.Chew) 81 mg PO DAILY [facility] Last Admin: 05/16/22 09:42 Dose: 81 mg Documented By: YELENA Atorvastatin Calcium (Atorvastatin Calcium 20 Mg Tablet) 20 mg PO BEDTIME [facility] Last Admin: 05/15/22 19:15 Dose: 20 mg Documented By: GINO Bisacodyl (Bisacodyl 5 Mg Tablet.Dr) 5 mg PO BEDTIME [facility] Last Admin: 05/15/22 19:15 Dose: 5 mg Documented By: GINO Bisacodyl (Bisacodyl 10 Mg Supp.Rect) 10 mg KS DAILY PRN PRN Reason: Constipation Gabapentin (Gabapentin 100 Mg Capsule) 100 mg PO BID [facility] Last Admin: 05/16/22 09:42 Dose: 100 mg Documented By: YELENA Piperacillin Sod/Tazobactam (Sod 3.375 gm/ Sodium Chloride) 50 mls @ 100 mls/hr IV Q6H [facility] Last Infusion: 05/16/22 06:44 Dose: 0 mls/hr Documented By: GINO Levetiracetam (Keppra) 500 mg in 100 mls @ 400 mls/hr IV Q12H [facility] Last Infusion: 05/16/22 06:17 Dose: 0 mls/hr Documented By: GINO Ibuprofen (Ibuprofen 600 Mg Tablet) 600 mg PO Q6H PRN PRN Reason: Pain (Scale Score 4-6) Lactulose (Lactulose 20 Gm/30 Ml Solution) 20 gm PO BID [facility] Last Admin: 05/16/22 09:42 Dose: 20 gm Documented By: YELENA Levothyroxine Sodium (Levothyroxine Sodium 100 Mcg Tablet) 100 mcg PO DAILY@0600 [facility] Last Admin: 05/16/22 05:55 Dose: Not Given Documented By: GINO Non-Admin Reason: Patient Refused Loperamide HCl (Loperamide Hcl 2 Mg Capsule) 2 mg PO Q8H PRN PRN Reason: Diarrhea Lorazepam (Lorazepam 0.5 Mg Tablet) 0.5 mg SUBLINGUAL Q4H PRN PRN Reason: anxiety/restlessness Metoclopramide HCl (Metoclopramide Hcl 10 Mg Tablet) 10 mg PO BIDAC [facility] Last Admin: 05/16/22 09:42 Dose: 10 mg Documented By: YELENA Multivitamins/Vitamin C (Multivitamin Tablet) 1 tab PO DAILY [facility] Last Admin: 05/16/22 09:42 Dose: 1 tab Documented By: YELENA Ondansetron HCl (Ondansetron Hcl 4 Mg/2 Ml Vial) 4 mg IVPUSH Q8H PRN PRN Reason: Nausea and Vomiting Last Admin: 05/15/22 01:19 Dose: 4 mg Documented By: VIRGILIO Propranolol HCl (Propranolol Hcl 20 Mg Tablet) 20 mg PO TID [facility]; Protocol Last Admin: 05/16/22 09:42 Dose: 20 mg Documented By: YELENA Scopolamine (Scopolamine 1.5 Mg Patch.Td.3) 1.5 mg TRANSDERMA Q72H [facility] Last Admin: 05/15/22 01:40 Dose: 1.5 mg Documented By: VIRGILIO Senna (Sennosides 8.6 Mg Tablet) 8.6 mg PO DAILY PRN PRN Reason: Constipation Senna/Docusate Sodium (Sennosides/Docusate Sodium Tablet) 2 tab PO BID [facility] Last Admin: 05/16/22 09:42 Dose: 2 tab Documented By: YELENA Sodium Chloride (0.9 % Sodium Chloride Flush 3 Ml Syringe) 3 ml IVFLUSH QSHIFT [facility] Last Admin: 05/16/22 09:43 Dose: Not Given Documented By: YELENA Non-Admin Reason: IV Running Tamsulosin HCl (Tamsulosin Hcl 0.4 Mg Capsule) 0.4 mg PO DAILY@1900 [facility] Last Admin: 05/15/22 17:26 Dose: 0.4 mg Documented By: YELENA Tramadol HCl (Tramadol Hcl 50 Mg Tablet) 50 mg PO Q8H PRN PRN Reason: Pain (Scale Score 4-6) Labs CBC & Chem 7: 05/16/22 05:42 05/16/22 05:42 Labs: Laboratory Results - last 24 hr 05/16/22 05/16/22 05:42 05:42 MCV 85.7 MCH 26.4 L MCHC 30.9 L RDW 20.0 H Plt Count 213 MPV 10.3 Absolute Nucleated RBC 0.000 Nucleated RBC % (auto) 0.0 Anion Gap 13 Estim Creat Clear Calc 62.9 Estimated GFR > 60 Random Glucose 70 D Calcium 8.9 D Microbiology Microbiology Results: Microbiology 05/14/22 15:05 Blood Culture - Preliminary Blood - Venous No growth after 24 hours. 05/14/22 15:05 Blood Culture - Preliminary Blood - Venous No growth after 24 hours. Assessment and Plan (1) Encephalopathy: Status: Acute (2) Aspiration pneumonia: Status: Acute (3) Hypothermia: Status: Acute (4) Hypoxia: Status: Acute Plan an 82-year-old male who was a resident of [facility] with history of COPD dementia, AFib, prostate cancer, and schizophrenia who was sent into the hospital as he was found unresponsive. Hypothermia secondary to infection resolved continue treating underlying infection Hypoxia secondary to aspiration pneumonia Oxygen supplement, to wean down as tolerated Pending blood cultures IV Zosyn for now Toxic metabolic encephalopathy aggressive at baseline per the facility More alert today Treat underlying infection with recurrent treat erection Hypotension Secondary to infection, possible medications Improving Give IV fluid and monitor response swallowing problem Secondary to altered mentation started diet as he passed bedside screening schizophrenia continue home antipsychotics DVT prophylaxis Heparin subQ The patient will need to stay overnight in the hospital to continue evaluation and treatment of altered mentation, sepsis and aspiration pneumonia pending final blood culture results giving high chance of decompensation in to severe sepsis. 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 The patient vitals improved overnight and he became more alert and interactive. I spoke with his primary small animal caretaker do 1st no and decided to change him from LANDSCAPE ARCHITECTURE PROFESSOR back to DNR DNI during his time in the hospital and give him a chance of recovery with treatment of pneumonia. Quality Stroke Does the patient have a stroke diagnosis?: No VTE Prior VTE?: No VTE Risk Level:: Medical - moderate - high VTE Device Contraindication: Treatment Not Indicated VTE Drug Contraindication: N/A - Med Ordered
[2022-05-16 12:00] VITALS: BP 115/82; PULSE 95; RESP 14; TEMP 36.6; O2SAT 97
[2022-05-16 15:38] VITALS: BP 126/64; PULSE 95; RESP 18; TEMP 36.8; O2SAT 98
[2022-05-16] MEDS: 0.9 % Sodium Chloride Flush 3 ML SYRINGE IVFLUSH ×2 (16:08→20:52)
[2022-05-16] MEDS: Tamsulosin HCL 0.4 MG CAPSULE PO (17:50)
[2022-05-16 20:12] VITALS: BP 121/72; PULSE 85; RESP 18; TEMP 36; O2SAT 99
[2022-05-16] MEDS: chlorproMAZINE HCl 25 MG TABLET 50 MG PO (20:40)
[2022-05-16] MEDS: levETIRAcetam 500 MG TABLET PO (20:40)
[2022-05-16] MEDS: Atorvastatin Calcium 20 MG TABLET PO (20:41)
[2022-05-16] MEDS: LORazepam 0.5 MG TABLET SUBLINGUAL (20:41)
[2022-05-16] MEDS: bisacodyL 5 MG TABLET.DR PO (20:41)
[2022-05-16 23:27] VITALS: BP 95/52; PULSE 76; RESP 18; TEMP 36.4; O2SAT 93
[2022-05-17 03:15] VITALS: BP 123/58; PULSE 84; RESP 18; TEMP 36.4; O2SAT 98
[2022-05-17 06:10] LABS: Anion Gap 15 (12-20); Blood Urea Nitrogen 20 mg/dL (9-16); Calcium 8.7 mg/dL (8.4-10.2); Carbon Dioxide 23 mmol/L (22-29); Chloride 110 mmol/L (96-108); Creatinine Clr Calc Pharmacy 62.9; Estimated Glomerular Filt Rate > 60; Glucose Random 97 mg/dL (60-115); Potassium 3.9 mmol/L (3.3-5.1); Sodium 144 mmol/L (135-145)
[2022-05-17] MEDS: Piperacillin Sodium/Tazobactam 3.375 GM in 0.9 % Sodium Chloride 50 ML IV ×2 (06:12→12:07)
[2022-05-17] MEDS: Levothyroxine Sodium 100 MCG TABLET PO (06:12)
[2022-05-17 07:38] VITALS: BP 108/61; PULSE 79; RESP 17; TEMP 36.3; O2SAT 96
--- NOTE | 2022-05-17 08:42 | MHC.CDI.CONC ---
CDI Concurrent Query Documentation Clarification: PHYSICIAN'S DOCUMENTATION REQUEST Date of Query: 05/17/22 0843 Patient Name: Juan Sanders Admit Date: 05/15/22 Dear Doctor, A review of the medical record indicates additional documentation may be needed. Please review below and update the documentation accordingly. Clinical Indicators: Risk Factors/Clinical Indicators/Treatments ICU note 05/15 - Patient is bedbound, full assistance, severely contracted upper & lower extremities. Multiple pressure wounds with inability to stand and sit. Nursing notes - Total assistance AWNING FINISHER Which, if any, of the following is a likely etiology of the above abnormalities and treatment rendered: Functional quadriplegia (complete immobility due to severe physical disability or [id number] cause Other Unable to determine Use of terms such as suspected, likely, concern for, or probable (associated with a specific diagnosis that is being evaluated, monitored, or treated as if it exists) are acceptable and can be coded in the inpatient setting, when documented at the time of discharge. Thank you, Sarah Sandra [facility], CDIS Extension: [phone] Please use your independent medical judgment in providing your response. THIS QUERY IS PART OF THE PERMANENT MEDICAL RECORD Provider Response: Other Other Diagnosis: Functional quadriplegia
[2022-05-17] MEDS: Lactulose 20 GM/30 ML SOLUTION PO (09:17)
[2022-05-17] MEDS: chlorproMAZINE HCl 25 MG TABLET 50 MG PO (09:17)
[2022-05-17] MEDS: 0.9 % Sodium Chloride Flush 3 ML SYRINGE IVFLUSH (09:17)
[2022-05-17] MEDS: Multivitamin TABLET 1 TAB PO (09:18)
[2022-05-17] MEDS: Sennosides/Docusate Sodium TABLET 2 TAB PO (09:18)
[2022-05-17] MEDS: Propranolol HCL 20 MG TABLET PO (09:18)
[2022-05-17] MEDS: Aspirin 81 MG TAB.CHEW PO (09:18)
[2022-05-17] MEDS: Metoclopramide HCl 10 MG TABLET PO (09:18)
[2022-05-17] MEDS: levETIRAcetam 500 MG TABLET PO (09:18)
[2022-05-17] MEDS: Gabapentin 100 MG CAPSULE PO (09:18)
--- NOTE | 2022-05-17 09:40 | MHC.CM.PN ---
PER W/E NOTES CM AWAITING GUARDIAN TO [employer] FOR STATUS CHANGE TO ARMATURE WINDER, CM DIRECTOR AWARE AND WILL FOLLOW-UP W/CM.
--- NOTE | 2022-05-17 11:18 | PM.DS ---
DS: Providers Provider Date of Service: 05/17/22 Date of admission: 05/15/22 00:57 Primary care physician: Norris Muñoz DO DS: Diagnosis Discharge Diagnosis (1) Encephalopathy: Status: Acute (2) Aspiration pneumonia: Status: Acute (3) Hypothermia: Status: Acute (4) Hypoxia: Status: Acute DS: Summary Hospital Course Hospital Course: Admission note HPI This is an 82-year-old male who was a resident of [facility] with history of COPD dementia, AFib, prostate cancer, and schizophrenia who was sent into the hospital as he was found unresponsive.? Patient was also found hypothermic in the ED as well as hypotensive.? ICA was consulted for admission to the ICU as patient was initially full code, but after evaluation, ICU PA , with agreement with the ED physician and discussion with legal guardian as well as patient's only living relative, patient was made comfort measures.? According to the PA note documents have been filed by legal guardian to change patient's code status to DNR DNI but that has not been done yet.? 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 Discussed with Dr. Muñoz from [facility] and his cardia and decision to treat him for pneumonia. Required Bear Hugger at presentation to treat hypoxemia which is recurrent upon admission with infections. Blood pressure improved. He was treated with IV antibiotic of Zosyn with good response as blood cultures remain negative and his mental status improved back to baseline. Continue to need oxygen which was weaned down to 2 L at time of discharge. Noted to have significant constipation at time of presentation. Responded well to laxative treatment as he had multiple bowel movements during the hospital stay. The patient will be full code at time of discharge per [facility] regulations. His guardian is working on changing his status and the case has been reviewed in the court since March and still pending. Started on pureed diet with good tolerance. To continue Augmentin for 1 more week. Time Spent with Patient Time attestation: Total time spent providing and/or coordinating discharge services: Discharge coordination time: Greater than 30 minutes Quality: Safe Use of Opioids Does Pt have an Active Cancer Diagnosis on the Problem List?: No Quality: Stroke Does the patient have a stroke diagnosis?: No Physical Exam Vital Signs: Vital Signs: Last Vital Signs Temp 97.4 F 05/17/22 07:38 Pulse 79 05/17/22 07:38 Resp 17 05/17/22 07:38 BP 108/61 05/17/22 07:38 Pulse Ox 96 05/17/22 07:38 O2 Del Method 05/17/22 07:38 O2 Flow Rate 2.0 05/17/22 07:38 Oxygen Flow Rate 2 05/14/22 13:48 BMI result Body Mass Index 20.9 Const: Other: Constitutional : Alert, contracted and does not make much of sense speaking Neck : Normal inspection, Supple Cardiovascular : RRR, no JVP, no lower extremity edema, tachycardia Respiratory : fair bilateral air entry, basal bilateral crackles, on oxygen supplement Gastrointestinal: soft, lax, Normal bowel sounds, Non tender Skin : Warm, Dry, multiple wounds on the left hip stage 2 pressure wound, feet and ankle areas, right foot stage II wound covered with dressing Neurological : Alert, confused, does not follow commands, contracted DS: Data Data Completed and Pending Labs on day of discharge: Laboratory Results - last 24 hr 05/17/22 05:32 Sodium 144 Potassium 3.9 Chloride 110 H Carbon Dioxide 23 Anion Gap 15 BUN 20 H Creatinine 0.77 Estim Creat Clear Calc 62.9 Estimated GFR > 60 Random Glucose 97 D Calcium 8.7 Preliminary micro results at discharge 05/14/22 15:05 Blood Culture - Preliminary Blood - Venous No growth after 48 hours. 05/14/22 15:05 Blood Culture - Preliminary Blood - Venous No growth after 48 hours. Imaging Chest x-ray: Radiologist's impression: ITS Impressions Chest X-Ray 05/14/22 14:35 IMPRESSION: Partially expanded lungs with increased reticular nodular interstitial changes in both lungs, stable. No new findings when compared to 02/13/2022. Abdomen/Pelvis CT 05/14/22 16:46 IMPRESSION: 1. Development of numerous rncg-nl-tyr-like nodular opacities within both lungs and larger scattered ill-defined pulmonary nodules, mild bronchial wall thickening and possible mild cystic bronchiectasis in the left upper lobe. Differential considerations include bronchopneumonia or sequela of aspiration. 2. No lobar consolidation or effusions. 3. Large amount of formed stool throughout the colon including a large stool ball distending the rectum. Correlate clinically with signs or symptoms of constipation/obstipation and mild stercoral colitis. 4. No other acute intra-abdominal process. 5. Resolution of previously seen right adrenal hematoma. Small bilateral adrenal nodules are present, likely adenomas. Chest CT 05/14/22 16:46 IMPRESSION: 1. Development of numerous jdvd-ih-eil-like nodular opacities within both lungs and larger scattered ill-defined pulmonary nodules, mild bronchial wall thickening and possible mild cystic bronchiectasis in the left upper lobe. Differential considerations include bronchopneumonia or sequela of aspiration. 2. No lobar consolidation or effusions. 3. Large amount of formed stool throughout the colon including a large stool ball distending the rectum. Correlate clinically with signs or symptoms of constipation/obstipation and mild stercoral colitis. 4. No other acute intra-abdominal process. 5. Resolution of previously seen right adrenal hematoma. Small bilateral adrenal nodules are present, likely adenomas. Head CT 05/14/22 16:46 IMPRESSION: 1. Exam quality degraded by patient motion artifact. 2. No intracranial hemorrhage, mass, or acute edematous territorial infarct identified. 2. Unchanged cerebral atrophy and chronic small vessel ischemic white matter change. Discharge Plan Discharge Patient Disposition: er [facility] Discharge Diagnosis: Hypothermia pneumonia Altered mentation Referrals: [facility] [Outside] - 1 Day (RESUMPTION OF CARE) Norris Muñoz DO [Primary Care Provider] - 1 Week Discharge Medications: New amoxicillin-pot clavulanate 500-125 mg tablet 1 tab PO Q8H Qty: 21 0RF Continued levothyroxine 100 mcg tablet 1 tab PO DAILY@0630 Santyl 250 unit/gram ointment 1 applic topical DAILY Label Comments: LEFT HIP, RIGHT FOOT Probiotic-Digestive Enzymes 5-250 mg Capsule 1 cap PO DAILY acetaminophen 325 mg Tablet 650 mg PO Q4H PRN (Reason: PAIN/TEMP) atorvastatin 20 mg Tablet 20 mg PO BEDTIME bisacodyl 10 mg Suppository 10 mg [place] DAILY PRN (Reason: Constipation) chlorpromazine 25 mg Tablet 50 mg PO BID Rx Instructions: TAKE TOGETHER WITH 50 MG DOSE FOR TOTAL DOSE OF 75 MG BID gabapentin 100 mg Capsule 100 mg PO BID haloperidol decanoate [Haldol Decanoate] 50 mg/mL Solution 10 mg IM Q14D ibuprofen 600 mg Tablet 600 mg PO Q6H PRN (Reason: Pain (Scale Score 4-6)) lactulose 10 gram/15 mL Solution 20 g PO BID loperamide 2 mg Capsule 2 mg PO Q8H PRN (Reason: Diarrhea) esomeprazole magnesium [Nexium] 40 mg Capsule,Delayed Release(Dr/Ec) 40 mg PO BIDAC ondansetron 4 mg Tablet,Disintegrating 4 mg PO Q4H PRN (Reason: Nausea And Vomiting) multivitamin Tablet 1 tab PO DAILY propranolol 20 mg Tablet 20 mg PO TID alum-mag hydroxide-simeth 200-200-20 mg/5 mL Suspension 30 ml PO Q4H PRN (Reason: Indigestion) Rx Instructions: administer between meals and at bedtime sennosides [senna] 8.6 mg Tablet 8.6 mg PO DAILY PRN (Reason: Constipation) sennosides-docusate sodium [Senna Plus] 8.6-50 mg Tablet 2 tab-cap PO BID bisacodyl 5 mg Tablet 5 mg PO BEDTIME tamsulosin 0.4 mg Capsule 0.4 mg PO DAILY@1900 tramadol 50 mg Tablet 50 mg PO BID tramadol 50 mg Tablet 50 mg PO Q8H PRN (Reason: Pain (Scale Score 4-6)) Rx Instructions: GIVE 8 HOURS APART FROM SCHEDULED DOSE aspirin 81 mg Tablet,Chewable 81 mg PO DAILY Qty: 30 0RF metoclopramide HCl 10 mg Tablet 10 mg PO BIDAC Santyl 250 unit/gram Ointment 1 appl TOPICAL DAILY Label Comments: LEFT HIP, RIGHT FOOT Rx Instructions: APPLY TO LEFT ELBOW levetiracetam 100 mg/mL Solution 500 mg PO BID Discharge Orders: Discharge Order (Routine); Ordered 05/17/22 Ordered By: Matthew Nunez Diet: Advance to usual diet Activity on Discharge: As tolerated Stand Alone Forms: Patient Portal Discharge page Care Plan Goals: Read below Health Concerns: Read below Plan of Treatment: Read below Assessment: Admitted to the hospital for altered mentation and low temperature. Considers as comfort care measures only at the beginning but after discussing with the guardian we treated you with IV antibiotics for pneumonia with good response. Continue Augmentin for 1 week
[2022-05-17 11:45] LABS: COVID-19 Test Negative (Negative); IDNOW Serial# 16C4AD1C
[2022-05-17 12:00] VITALS: BP 110/61; PULSE 82; RESP 18; TEMP 36.3; O2SAT 94
--- NOTE | 2022-05-17 13:09 | MHC.CM.PN ---
PT MEDICALLY CLEARED FOR PT TO RETURN TO [facility]IA [facility] FOR BLS TRANSPORT
== END 2022-05-17 14:23 | DRG 177 ==
LOC: HO.ED 18:33 → HO.EDOVER 05-15 03:32 → HO.S3 05-15 11:51
PROVIDERS: Student in an Organized Health Care Education/Training Program; Admitting Provider Internal Medicine; Emergency Provider Emergency Medicine Emergency Medical Services; PCP Hospitalist; Visit Provider Student in an Organized Health Care Education/Training Program
DX: J69.0 Pneumonitis due to inhalation of food and vomit (principal); G92.8 Other toxic encephalopathy; R53.2 Functional quadriplegia; F01.51 Vascular dementia, unspecified severity, with behavioral disturbance; Z51.5 Encounter for palliative care; R68.0 Hypothermia, not associated with low environmental temperature; R09.02 Hypoxemia; I95.9 Hypotension, unspecified; F20.9 Schizophrenia, unspecified; Z20.822 Contact with and (suspected) exposure to COVID-19; Z79.82 Long term (current) use of aspirin; Z79.890 Hormone replacement therapy; Z79.899 Other long term (current) drug therapy
CPT/HCPCS: 36415; 70450; 71045; 71250; 74176; 80048; 80053; 80307; 81003; 82803; 83605; 83880; 84145; 84439; 84443; 84484; 85025; 85027; 85610; 87040; 87635; 93005; 96365; 96366; 96367; 96375; 96376; 99285; C1758; J1953; J2270; J2370; J2405; J2543; P9047

== ENCOUNTER → 2022-07-30 11:42 | Outpatient (BNVA) | payer MEDICARE, MEDICAID, SELFPAY | PROVIDERS: PCP Hospitalist; Visit Provider Urology | DX: C61 Malignant neoplasm of prostate (principal); N40.1 Benign prostatic hyperplasia with lower urinary tract symptoms; N13.8 Other obstructive and reflux uropathy; R97.20 Elevated prostate specific antigen [PSA]; R39.15 Urgency of urination | CPT/HCPCS: 99212 ==

== ENCOUNTER 2022-08-05 15:01 | Emergency (ER) | payer MEDICARE, MEDICAID, SELFPAY ==
--- NOTE | ~2022-08-05 | CT_ITS ---
EXAMINATION: CT cervical spine wo IV con, CT head/brain wo IV con INDICATION INFORMATION: Reason for Exam neck pain COMPARISON: CT brain 05/14/2022, CT head and cervical spine 03/13/2021 TECHNIQUE: Separate noncontrast CT examinations of the head and cervical spine were performed. Coronal and sagittal images were created for each examination at the technologist workstation. This CT examination was performed using dose optimization techniques as appropriate, variously including the following: *Automated exposure control *Adjustment of mA and/or kV according to patient size (this includes techniques or standardized protocols for targeted exams where dose is matched to indication/reason for exam; i.e. extremities or head) *Use of iterative reconstruction technique DLP: 1177 mGy-cm FINDINGS: Head: Technically limited exam due to patient positioning. Soft tissue swelling along the right posterior vertex of the scalp. No underlying calvarial fracture or acute osseous abnormality. The mastoid air cells and visualized portions of the paranasal sinuses are well aerated. Status post bilateral lens replacements. There is no evidence of acute intracranial hemorrhage or territorial infarction. No abnormal mass effect or midline shift is seen. No extra-axial fluid collections are identified. Moderate global parenchymal volume loss with dilation of the ventricles out of proportion to sulcal prominence which can be seen in the setting of normal pressure hydrocephalus, recommend correlation with clinical symptoms, similar to prior. Confluent periventricular and deep white matter hypoattenuation is consistent with advanced small vessel ischemic changes in the lower to prior which limits evaluation for acute ischemia. Similar right occipitoparietal encephalomalacia.. Stable remote right cerebellar lacunar infarct.. Cervical spine: There is no evidence of acute cervical spine fracture. Vertebral bodies remain normal in height. Loss of the usual cervical spine lordosis which may be due to positioning or muscle spasm. 2 mm of anterolisthesis of C2 on C3 and 3 mm of anterolisthesis of C3 on C4 favored degenerative. Multilevel degenerative disc disease. No pre- or paravertebral soft tissue abnormality is identified. Multifocal groundglass attenuation in the right upper lobe may reflect sequelae of edema or atypical viral infection. A 0.8 cm fluid attenuation nodules noted involving the anterior aspect of the trachea. The thyroid gland is unremarkable. CT/CT cervical spine wo IV con IMPRESSION: 1. Technically limited exam. No definite acute intracranial abnormality, however a background of advanced white matter disease limits evaluation for acute infarct and if any clinical concern for ischemia or focal neurologic symptoms MR brain would be more sensitive for further evaluation. 2. Background of global parenchymal volume loss however ventricles appear slightly dilated out of proportion to sulcal prominence which could be seen in setting of normal pressure hydrocephalus, similar to prior. Recommend correlation with clinical symptoms. 3. No cervical spine fracture. Advanced multilevel degenerative disc disease.
[2022-08-05 15:21] VITALS: BP 110/59; BP 98/50; PULSE 78; PULSE 79; RESP 18; TEMP 36.6; O2SAT 96; BMI 21.9
[2022-08-05 15:31] VITALS: RESP 20
--- NOTE | 2022-08-05 15:34 | PC.NURSE ---
Pt coming from [facility], contracted at baseline. Pt poor historian unable to state exactly what happened. Combative during care at times
--- NOTE | 2022-08-05 15:41 | ED.FALL ---
HPI - Fall General Chief Complaint: Fall Stated Complaint: UNWIT FALL OUT OF WC,FOREHEAD BRUISE FROM SNF Time Seen by Provider: 08/05/22 15:16 Source: EMS Mode of arrival: EMS Limitations: altered mental status History of Present Illness HPI Narrative: 82-year-old male with a history of COPD, AFib, dementia, schizophrenia who [facility] Patient is on aspirin 81 mg only. Per report from EMS and staff patient was in his wheelchair when he fell forward hitting his head. No loss of consciousness. Baseline behavior since. Related Data Home Medications Medication Instructions Recorded Confirmed acetaminophen 325 mg tablet 650 mg PO Q4H PRN PAIN/TEMP 12/30/21 05/15/22 aluminum-mag hydroxide-simethicone 30 ml PO Q4H PRN Indigestion 12/30/21 05/15/22 200 mg-200 mg-20 mg/5 mL oral susp atorvastatin 20 mg tablet 20 mg PO BEDTIME 12/30/21 05/15/22 bisacodyl 10 mg rectal suppository 10 mg AK DAILY PRN Constipation 12/30/21 05/15/22 bisacodyl 5 mg tablet 5 mg PO BEDTIME 12/30/21 05/15/22 chlorpromazine 25 mg tablet 50 mg PO BID 12/30/21 05/15/22 esomeprazole magnesium 40 mg 40 mg PO BIDAC 12/30/21 05/15/22 capsule,delayed release (Nexium) gabapentin 100 mg capsule 100 mg PO BID 12/30/21 05/15/22 haloperidol decanoate 50 mg/mL 10 mg IM Q14D 12/30/21 05/15/22 intramuscular solution (Haldol Decanoate) ibuprofen 600 mg tablet 600 mg PO Q6H PRN Pain (Scale 12/30/21 05/15/22 Score 4-6) lactulose 10 gram/15 mL oral 20 g PO BID 12/30/21 05/15/22 solution loperamide 2 mg capsule 2 mg PO Q8H PRN Diarrhea 12/30/21 05/15/22 multivitamin 1 tab PO DAILY 12/30/21 05/15/22 ondansetron 4 mg disintegrating 4 mg PO Q4H PRN Nausea And Vomiting 12/30/21 05/15/22 tablet propranolol 20 mg tablet 20 mg PO TID 12/30/21 05/15/22 sennosides 8.6 mg tablet (senna) 8.6 mg PO DAILY PRN Constipation 12/30/21 05/15/22 sennosides 8.6 mg-docusate sodium 2 tab-cap PO BID 12/30/21 05/15/22 50 mg tablet (Senna Plus) tamsulosin 0.4 mg capsule 0.4 mg PO DAILY@1900 12/30/21 05/15/22 tramadol 50 mg tablet 50 mg PO BID 12/30/21 05/15/22 tramadol 50 mg tablet 50 mg PO Q8H PRN Pain (Scale Score 12/30/21 05/15/22 4-6) metoclopramide HCl 10 mg tablet 10 mg PO BIDAC 02/06/22 05/15/22 collagenase clostridium histo. 250 1 appl topical DAILY 02/13/22 05/15/22 unit/gram topical ointment (Santyl) levetiracetam 100 mg/mL oral 500 mg PO BID 02/13/22 05/15/22 solution L. acidophilus 5 mg-digestive 1 cap PO DAILY 05/15/22 05/15/22 enzymes combo no.5 250 mg capsule (Probiotic-Digestive Enzymes) collagenase clostridium histo. 250 1 applic topical DAILY IF WET, 05/15/22 05/15/22 unit/gram topical ointment (Santyl) SOILED, OR FALLING OFF levothyroxine 100 mcg tablet 1 tab PO DAILY@0630 05/15/22 05/15/22 Previous Rx's Medication Instructions Recorded aspirin 81 mg chewable tablet 81 mg PO DAILY #30 tabs 01/04/22 amoxicillin 500 mg-potassium 1 tab PO Q8H #21 tabs 05/17/22 clavulanate 125 mg tablet finasteride 5 mg tablet 5 mg PO DAILY 90 days #90 tabs 07/30/22 Allergies Allergy/AdvReac Type Severity Reaction Status Date / Time No Known Allergies Allergy Unverified 06/19/20 17:10 [No Known Allergies*] Review of Systems Review of Systems: Yes Unobtainable due to mental status Gastrointestinal: Gastrointestinal: Reports nausea Neurologic: Denies Abnormal speech present [facility] Past Medical History Attestation statement: The following information was validated with the patient. Source: old records reviewed and nursing notes reviewed Medical History Atrial fibrillation COPD (chronic obstructive pulmonary disease) Dementia Malignant neoplasm of prostate Occipital infarction Prostate cancer Schizophrenia Family History Family History Other Family history unknown Social History Social History Household Members: Other Housing: Assisted Living Facility Unable to assess alcohol history related to: Unable to respond Alcohol intake: unknown Patient Tobacco Use Status: Tobacco use Unknown Smoked in Last 30 Days: No Advance Directives: Yes Advance Directives on File: Yes Advance Directives Date on File: 05/18/22 service: No Physical Exam Vital Signs: Vital Signs: Last Vital Signs Temp 97.9 F 08/05/22 15:21 Pulse 78 08/05/22 15:21 Resp 20 08/05/22 15:31 BP 110/59 L 08/05/22 15:21 Pulse Ox 96 08/05/22 15:21 O2 Del Method 08/05/22 15:21 BMI result Body Mass Index 21.9 Const: Other: thin, contracted, intermittently agitated General: alert Limitations: no limitations HEENT: Head: Yes normal to inspection, No Steiner's sign and No raccoon eyes Ears: hearing grossly normal bilaterally and TM's normal bilaterally General nose exam: Normal external nose present Face and sinus: Yes normal facial exam Mouth: Normal oral and palatal mucosa present Throat: Yes posterior oropharynx normal Eyes: General: appearance normal, both eyes and all related structures Pupils: Equal, round and reactive pupils present Neck: Neck: Yes normal visual inspection Chest: Chest palpation & inspection: normal inspection of the chest Resp: Effort & Inspection: normal respiratory effort Auscultation: clear to auscultation bilaterally Cardio: Rate: regular rate Rhythm: regular rhythm Peripheral pulses: Peripheral pulses 2+ throughout GI: Inspection: Yes normal to inspection Palpation (GI): nontender Back/Spine/Pelvis: Thoracic/Lumbar Spine: thoracic and lumbar spine normal to inspection Skin: General skin exam: no rashes or lesions noted Neuro: Other: Alert, confused at baseline, contracted upper and lower extremities, intermittently agitated and combative Cranial nerves: Yes Equal, round and reactive pupils present Speech: No Abnormal speech present Course Course Course Narrative: CT is unchanged from previous. Plan for discharge back to care [facility]. MDM - Fall MDM Narrative Medical decision making narrative: This is an 82-year-old male who presents from [facility] with a history of schizophrenia, dementia, AFib, COPD with fall out of his wheelchair with head strike. Patient is on aspirin 81 mg only. Per staff patient is at his baseline. He is alert but he is agitated and combative at times. We will not cooperate for CT scan. Will need Haldol and Benadryl prior to imaging Medical Records Attestation: I reviewed the patient's medical records. Lab Data Attestation: I reviewed the patient's lab results. Imaging Data CT head/cervical spine: Attestation: I personally reviewed and interpreted this imaging study as follows: Radiologist's impression: IMPRESSION: ? 1.? Technically limited exam. No definite acute intracranial abnormality, however a background of advanced white matter disease limits evaluation for acute infarct and if any clinical concern for ischemia or focal neurologic symptoms MR brain would be more sensitive for further evaluation. ? 2.? Background of global parenchymal volume loss however ventricles appear slightly dilated out of proportion to sulcal prominence which could be seen in setting of normal pressure hydrocephalus, similar to prior. Recommend correlation with clinical symptoms. ? 3.? No cervical spine fracture. Advanced multilevel degenerative disc disease. ? Discharge Plan Discharge Clinical Impression: Head injury, Fall Patient Disposition: Xfer [facility] Transfer Details: [facility] Instructions: Head Injury (ED), Fall Prevention (ED) Prescriptions: No [facility] levothyroxine 100 mcg tablet 1 tab PO DAILY@0630 Santyl 250 unit/gram ointment 1 applic topical DAILY Label Comments: LEFT HIP, RIGHT FOOT Probiotic-Digestive Enzymes 5-250 mg Capsule 1 cap PO DAILY amoxicillin-pot clavulanate 500-125 mg tablet 1 tab PO Q8H Qty: 21 0RF acetaminophen 325 mg Tablet 650 mg PO Q4H PRN (Reason: PAIN/TEMP) atorvastatin 20 mg Tablet 20 mg PO BEDTIME bisacodyl 10 mg Suppository 10 mg [place] DAILY PRN (Reason: Constipation) chlorpromazine 25 mg Tablet 50 mg PO BID Rx Instructions: TAKE TOGETHER WITH 50 MG DOSE FOR TOTAL DOSE OF 75 MG BID gabapentin 100 mg Capsule 100 mg PO BID haloperidol decanoate [Haldol Decanoate] 50 mg/mL Solution 10 mg IM Q14D ibuprofen 600 mg Tablet 600 mg PO Q6H PRN (Reason: Pain (Scale Score 4-6)) lactulose 10 gram/15 mL Solution 20 g PO BID loperamide 2 mg Capsule 2 mg PO Q8H PRN (Reason: Diarrhea) esomeprazole magnesium [Nexium] 40 mg Capsule,Delayed Release(Dr/Ec) 40 mg PO BIDAC ondansetron 4 mg Tablet,Disintegrating 4 mg PO Q4H PRN (Reason: Nausea And Vomiting) multivitamin Tablet 1 tab PO DAILY propranolol 20 mg Tablet 20 mg PO TID alum-mag hydroxide-simeth 200-200-20 mg/5 mL Suspension 30 ml PO Q4H PRN (Reason: Indigestion) Rx Instructions: administer between meals and at bedtime sennosides [senna] 8.6 mg Tablet 8.6 mg PO DAILY PRN (Reason: Constipation) sennosides-docusate sodium [Senna Plus] 8.6-50 mg Tablet 2 tab-cap PO BID bisacodyl 5 mg Tablet 5 mg PO BEDTIME tamsulosin 0.4 mg Capsule 0.4 mg PO DAILY@1900 tramadol 50 mg Tablet 50 mg PO BID tramadol 50 mg Tablet 50 mg PO Q8H PRN (Reason: Pain (Scale Score 4-6)) Rx Instructions: GIVE 8 HOURS APART FROM SCHEDULED DOSE aspirin 81 mg Tablet,Chewable 81 mg PO DAILY Qty: 30 0RF metoclopramide HCl 10 mg Tablet 10 mg PO BIDAC Santyl 250 unit/gram Ointment 1 appl TOPICAL DAILY Label Comments: LEFT HIP, RIGHT FOOT Rx Instructions: APPLY TO LEFT ELBOW levetiracetam 100 mg/mL Solution 500 mg PO BID finasteride 5 mg tablet 5 mg PO DAILY 90 Days Qty: 90 3RF
[2022-08-05] MEDS: diphenhydrAMINE HCL 50 MG/ML VIAL IM (16:05)
[2022-08-05] MEDS: Haloperidol Lactate 5 MG/ML VIAL IM (16:05)
--- NOTE | 2022-08-05 16:08 | PC.NURSE ---
Pt unable to tolerate CT scan, combative with staff. Medicated per MAR so as to obtain CT scan
== END 2022-08-05 21:14 | disposition skilled nursing facility (03) ==
PROVIDERS: Emergency Provider Emergency Medicine
DX: S09.90XA Unspecified injury of head, initial encounter (principal); W05.0XXA Fall from non-moving wheelchair, initial encounter; F03.911 Unspecified dementia, unspecified severity, with agitation; C61 Malignant neoplasm of prostate; Y93.9 Activity, unspecified; Y92.129 Unspecified place in nursing home as the place of occurrence of the external cause; Y99.9 Unspecified external cause status; Z79.82 Long term (current) use of aspirin; Z79.02 Long term (current) use of antithrombotics/antiplatelets; Z79.899 Other long term (current) drug therapy
CPT/HCPCS: 70450; 72125; 96372; 99284; J1200

== ENCOUNTER 2022-11-03 09:50 | Outpatient (REF) | payer MEDICARE, MEDICAID, SELFPAY | END 2022-11-03 09:51 | disposition home or self-care (01) | LOC: HO.CT 09:50 | PROVIDERS: PCP Hospitalist; Visit Provider Hospitalist | DX: Z13.89 Encounter for screening for other disorder (principal) ==

== ENCOUNTER 2022-11-12 09:54 | Outpatient (REF) | payer MEDICARE, MEDICAID, SELFPAY ==
--- NOTE | ~2022-11-12 | CT_ITS ---
EXAMINATION: CT CHEST WITH CONTRAST CLINICAL INFORMATION: Anterior tracheal nodule COMPARISON: Previous chest CT most recent May [address] August 2022 TECHNIQUE: Multidetector volumetric CT imaging of the chest was obtained after the administration of 65 mL of Omnipaque 350 intravenous contrast without immediate adverse reactions. Axial MIP volume rendering provided. Sagittal and coronal reformatted images were obtained. This CT examination was performed using dose optimization techniques as appropriate, variously including the following: *Automated exposure control *Adjustment of mA and/or kV according to patient size (this includes techniques or standardized protocols for targeted exams where dose is matched to indication/reason for exam; i.e. extremities or head) *Use of iterative reconstruction technique DLP: 168 mGy-cm FINDINGS: LUNGS: The nodule in the anterior lower trachea seen on cervical spine CT scan is no longer seen. There is a new nodule is seen in the right lateral proximal trachea. This probably represents patient secretions. There is mild paraseptal emphysema. There are scattered groundglass opacities, increased peribronchial attenuation, small peribronchial nodules and bronchial wall thickening. Findings are suggestive of airways disease. This is greatest in the left lung and does not appear appreciably changed from May 2022 exam. MEDIASTINUM: Moderate coronary artery calcification. Normal heart size. No pericardial effusion. Normal caliber thoracic aorta. No enlarged hilar or mediastinal lymph nodes. Question wall thickening of the mid thoracic esophagus. PLEURA: There is no pleural effusion. No pleural mass or thickening. AXILLA: No lymphadenopathy. UPPER ABDOMEN: Unremarkable OSSEOUS STRUCTURES: Increased thoracic kyphosis and degenerative change. CT/CT chest w IV con IMPRESSION: Probable secretions in the trachea. No fixed or persistent endotracheal lesion. Diffuse airways disease similar to previous exam. Question wall thickening of the mid thoracic esophagus. Fleischner guidelines were followed.
[2022-11-12] MEDS: iohexoL 350 MG/ML 100 ML INFUS..BTL IV (10:54)
== END 2022-11-12 09:55 | disposition home or self-care (01) ==
LOC: HO.CT 09:54
PROVIDERS: PCP Hospitalist; Visit Provider Hospitalist
DX: Z13.89 Encounter for screening for other disorder (principal)
CPT/HCPCS: 71260; Q9967

== ENCOUNTER 2022-11-15 10:43 | Inpatient (IN) | payer MEDICARE, MEDICAID, SELFPAY ==
--- NOTE | ~2022-11-15 | XR_ITS ---
EXAMINATION: XR CHEST CLINICAL INFORMATION: Altered mental status. COMPARISON: Chest radiographs 05/14/2022, 02/13/2022, CT chest 01/01/2022. TECHNIQUE: Supine portable AP view of the chest was obtained. FINDINGS: Patient is rotated to the left. There are low lung volumes. Some mild coarsening interstitial markings present left perihilar region similar to prior studies. No lobar or segmental airspace consolidation, vascular congestion, or effusion. No pneumothorax or subcutaneous emphysema. XR/XR chest 1V IMPRESSION: Low lung volumes. No airspace consolidation, vascular congestion, or effusion.
--- NOTE | ~2022-11-15 | CT_ITS ---
EXAMINATION: CT HEAD WITHOUT CONTRAST CLINICAL INFORMATION: Altered mental status. COMPARISON: CT head 08/05/2022 , 05/14/2022. TECHNIQUE: Contiguous axial imaging was performed from the skull base to vertex without intravenous administration of contrast. This CT examination was performed using dose optimization techniques as appropriate, variously including the following: *Automated exposure control *Adjustment of mA and/or kV according to patient size (this includes techniques or standardized protocols for targeted exams where dose is matched to indication/reason for exam; i.e. extremities or head) *Use of iterative reconstruction technique DLP: 856 mGy-cm FINDINGS: There is asymmetric cortical encephalomalacia involving the right occipital lobe that appears grossly unchanged when compared to the recent prior imaging from 08/05/2022 and 05/14/2022. A few tiny chronic cerebellar infarcts are unchanged. Numerous foci of hypoattenuation are also visualized throughout the periventricular white matter that most likely represent a chronic manifestation of small vessel ischemia. Grossly no evidence of acute territorial infarct. There is no acute hemorrhage or abnormal extra-axial collection. There is stable prominence of the lateral and third ventricles most likely representing ex vacuo enlargement in the setting of parenchymal volume loss. The calvarium and skull base are intact. Mastoid air cells and middle ear cavities are well aerated. No active paranasal sinus disease. CT/CT head/brain wo IV con IMPRESSION: No substantial change from prior imaging. There is asymmetric cortical encephalomalacia involving the right occipital lobe and numerous chronic small vessel ischemic changes throughout the periventricular white matter. No evidence of acute territorial infarct or hemorrhage.
[2022-11-15 11:01] VITALS: BP 116/56; BP 146/100; PULSE 60; PULSE 81; RESP 20; TEMP 33.8; O2SAT 92; BMI 17.4
--- NOTE | 2022-11-15 11:02 | ECG_ITS ---
Test Reason : WEAKNESS Blood Pressure : / mmHG Vent. Rate : 081 BPM Atrial Rate : 081 BPM P-R Int : 136 ms QRS Dur : 082 ms QT Int : 384 ms P-R-T Axes : 072 -45 -17 degrees QTc Int : 446 ms Normal sinus rhythm Left anterior fascicular block Minimal voltage criteria for LVH, may be normal variant ( R in aVL ) Anterolateral infarct (cited on or before 14-MAY-2022) Abnormal ECG When compared with ECG of 14-MAY-2022 14:21, Questionable change in QRS duration Questionable change in initial forces of Lateral leads Referred By: Nedra Mathur Electronically Signed By:Emir Bautista
--- NOTE | 2022-11-15 11:07 | ED.AMS ---
HPI - Altered Mental Status General Chief Complaint: Weakness Stated Complaint: Low BP per EMS Source: EMS and old records reviewed Mode of arrival: EMS Limitations: altered mental status History of Present Illness HPI narrative: 82 yo male with dementia - baseline per notes - contracted will yell out and agitated with ADLs, afib on aspirin, seizures on keppra, BPH, prostate cancer noted to be more lethargic last night and EMS called for BPs 90/40s. He is a full CODE. NO other history reported or symptoms given MD complaint: other (increased lethargy) Onset (ago): day(s) (last night) Timing confirmed by: caregiver Severity: moderate Consistency of symptoms: unknown Context: other (dementia senior care patient) Associated symptoms: denies other symptoms Related Data Home Medications Medication Instructions Recorded Confirmed acetaminophen 325 mg tablet 650 mg PO Q4H PRN PAIN/TEMP 12/30/21 11/15/22 atorvastatin 20 mg tablet 20 mg PO BEDTIME 12/30/21 11/15/22 bisacodyl 10 mg rectal suppository 10 mg MO DAILY PRN Constipation 12/30/21 11/15/22 chlorpromazine 25 mg tablet 50 mg PO BID 12/30/21 11/15/22 esomeprazole magnesium 40 mg 40 mg PO BIDAC 12/30/21 11/15/22 capsule,delayed release (Nexium) gabapentin 100 mg capsule 100 mg PO BID 12/30/21 11/15/22 haloperidol decanoate 50 mg/mL 10 mg IM Q14D 12/30/21 11/15/22 intramuscular solution (Haldol Decanoate) lactulose 10 gram/15 mL oral 20 g PO BID 12/30/21 11/15/22 solution multivitamin 1 tab PO DAILY 12/30/21 11/15/22 propranolol 20 mg tablet 20 mg PO TID 12/30/21 11/15/22 sennosides 8.6 mg tablet (senna) 8.6 mg PO DAILY PRN Constipation 12/30/21 11/15/22 sennosides 8.6 mg-docusate sodium 2 tab-cap PO BID 12/30/21 11/15/22 50 mg tablet (Senna Plus) tamsulosin 0.4 mg capsule 0.4 mg PO DAILY@1900 12/30/21 11/15/22 tramadol 50 mg tablet 50 mg PO Q8H PRN Pain (Scale Score 12/30/21 11/15/22 4-6) metoclopramide HCl 10 mg tablet 10 mg PO BIDAC 02/06/22 11/15/22 levetiracetam 100 mg/mL oral 500 mg PO BID 02/13/22 11/15/22 solution levothyroxine 100 mcg tablet 1 tab PO DAILY@0630 05/15/22 11/15/22 acidophilus 100 million 1 cap PO DAILY 11/15/22 11/15/22 cell-pectin, citrus 10 mg capsule arginine (L-arginine) 500 mg oral 500 mg PO DAILY 11/15/22 11/15/22 powder packet Previous Rx's Medication Instructions Recorded aspirin 81 mg chewable tablet 81 mg PO DAILY #30 tabs 01/04/22 finasteride 5 mg tablet 5 mg PO DAILY 90 days #90 tabs 07/30/22 Allergies Allergy/AdvReac Type Severity Reaction Status Date / Time No Known Allergies Allergy Unverified 06/19/20 17:10 [No Known Allergies*] Review of Systems Review of Systems: ROS unable to be obtained due to altered mental status [facility] Past Medical History Attestation statement: The following information was validated with the patient. Medical History Atrial fibrillation COPD (chronic obstructive pulmonary disease) Dementia Malignant neoplasm of prostate Occipital infarction Prostate cancer Schizophrenia Family History Family History Other Family history unknown Social History Social History Household Members: Other Housing: Assisted Living Facility Unable to assess alcohol history related to: Unable to respond Alcohol intake: unknown Patient Tobacco Use Status: Tobacco use Unknown Use of substances other than those prescribed or required for medical reasons: Unknown Advance Directives: Yes Advance Directives on File: Yes Advance Directives Date on File: 05/18/22 service: No Physical Exam ED Vital Signs: Vital Signs - 24 hr 11/15/22 11:01 11/15/22 11:40 11/15/22 14:10 Temperature 92.9 F L 92.1 F L 97.3 F Pulse Rate 81 81 Respiratory Rate 20 30 H Blood Pressure 116/56 L 124/66 Pulse Oximetry 92 98 Oxygen Delivery Method Room Air Room Air BMI result Body Mass Index 17.4 Appearance:Somnolent withdraws from stimuli. No acute distress. Eyes: Pupils equal, round and reactive to light. ENT: Pharynx dry MM. atraumatic. Neck: Normal inspection. Neck supple. CVS: Normal heart rate and rhythm. Pulses normal. Respiratory: No respiratory distress. Breath sounds normal. Abdomen: Soft does not grimace to palpation Skin: Skin warm and dry. Normal skin color. poor skin turgor. Extremities: No lower extremity edema. Neuro: lethargic. cannot participate in exam. contracted pulls from stimuli Course Course Course Narrative: start ceftriaxone for UTI Medications Administered Discontinued Medications Generic Name Dose Route Start Last Admin Trade Name Freq PRN Reason Stop Dose Admin Lactated Ringer's 1,000 mls @ 999 mls/hr 11/15/22 13:00 11/15/22 16:23 Lr IV 11/15/22 14:00 Infused .Q1H1M TERESE Infusion Ceftriaxone Sodium 1 gm/ 50 mls @ 100 mls/hr 11/15/22 13:49 11/15/22 15:03 Sodium Chloride IV 11/15/22 14:18 Infused ONCE ONE Infusion Medical Decision Making Medical Decision Making [facility] Narrative: 82 yo male with dementia - baseline per notes - contracted will yell out and agitated with ADLs, afib on aspirin, seizures on keppra, BPH, prostate cancer here with increased lethargy since yesterday I cannot get a history from him - he yells when we try to check his BP and he withdraws from pain - at this time given undifferentiated lethargy and his core temp is 92 will look for metabolic / infectious / ICH causes - labs, UA, CXR, CT scan of head ordered. Dispo per results and findings. Differential Diagnosis Differential Diagnoses: The differential diagnosis associated with the presentation includes infection, metabolic, ICH Consult Healthcare Provider Management of the patient was discussed with: Hospitalist Lab Data [facility] Lab Attestation statement: I reviewed the patient's lab results. 11/15/22 11:33 11/15/22 11:34 Labs: Lab Results 11/15/22 11/15/22 11/15/22 Range/Units 11:33 11:33 11:34 WBC 6.8 (4.8-10.8) X10*3/uL RBC 4.44 L D (4.60-5.80) X10*6/uL Hgb 11.8 L D (14.0-18.0) g/dl Hct 38.7 L D (42.0-52.0) % MCV 87.2 (80.0-98.0) fL MCH 26.6 L (27.0-33.0) pg MCHC 30.5 L (31.0-36.0) g/dl RDW 16.9 H (11.0-16.0) % Plt Count 339 D (160-400) X10*3/uL MPV 9.4 (9.4-12.4) fL Immature Gran % (Auto) 1.6 H (0.0-0.4) % Neut % (Auto) 54.8 (45-73) % Lymph % (Auto) 24.3 (20-40) % Power % (Auto) 9.2 (2-11) % Eos % (Auto) 9.5 H (0-4) % Baso % (Auto) 0.6 (0-2) % Lymph # (Auto) 1.6 (1.2-4.9) X10*3/uL Power # (Auto) 0.6 (0.1-1.2) X10*3/uL Eos # (Auto) 0.6 H (0.0-0.4) X10*3/uL Baso # (Auto) 0.0 (0.0-0.2) X10*3/uL Abs Immat Gran (auto) 0.11 H (0.00-0.03) X10*3/uL Absolute Neuts (auto) 3.7 (2.0-8.3) x10*3/uL Absolute Nucleated RBC 0.000 (0.0-0.012) X10*3/uL Nucleated RBC % (auto) 0.0 (0.0-0.2) /100WBC PT (10.0-13.1) SEC INR (0.9-1.1) VBG pH (7.32-7.43) VBG pCO2 mmHg VBG pO2 mmHg VBG HCO3 (22-26) mmol/L VBG O2 Saturation % VBG Base Excess mmol/L Sodium 152 H (135-145) mmol/L Potassium 4.1 (3.3-5.1) mmol/L Chloride 116 H (96-108) mmol/L Carbon Dioxide 28 (22-29) mmol/L Anion Gap 12 (12-20) BUN 21 H (9-16) mg/dL Creatinine 0.71 (0.5-1.4) mg/dL Estim Creat Clear Calc 52.1 Estimated GFR > 60 Random Glucose 85 (60-115) mg/dL Lactic Acid (0.5-2.0) mmol/L Calcium 8.9 (8.4-10.2) mg/dL Magnesium 2.1 (1.6-2.6) mg/dL Total Bilirubin 0.4 (0.0-1.0) mg/dL Direct Bilirubin < 0.2 (0.0-0.5) mg/dL AST 29 (5-37) U/L ALT 45 H (0-40) U/L Alkaline Phosphatase 117 (39-117) U/L Ammonia (13-55) umol/L Total Creatine Kinase 67 (38-174) U/L Troponin I High Sens (<3.5-35.0) ng/L C-Reactive Protein 14.80 H (< or = 0.50) mg/dL Total Protein 6.0 L (6.5-8.0) g/dL Albumin 2.9 L (3.5-5.0) g/dL Lipase 7 L (8-78) U/L TSH 0.61 (0.32-4.0) uIU/mL Urine Color Urine Appearance Urine pH (5.0-9.0) Ur Specific [place] (1.005-1.025) Urine Protein (Neg-Trace) mg/dL Urine Glucose (UA) (Negative) mg/dL Urine Ketones (Negative) mg/dL Urine Blood (Negative) Urine Nitrite (Negative) Ur Leukocyte Esterase (Negative) Urine RBC (0-2) /HPF Urine WBC (0-5) /HPF Ur Squamous Epith Cells (0-2) /HPF Urine Bacteria (None Seen) Hyaline Casts (0-2) /LPF COVID-19 ([facility]) (Negative) COVID-19 Clin Com 11/15/22 11/15/22 11/15/22 Range/Units 11:34 11:34 11:34 WBC (4.8-10.8) X10*3/uL RBC (4.60-5.80) X10*6/uL Hgb (14.0-18.0) g/dl Hct (42.0-52.0) % MCV (80.0-98.0) fL MCH (27.0-33.0) pg MCHC (31.0-36.0) g/dl RDW (11.0-16.0) % Plt Count (160-400) X10*3/uL MPV (9.4-12.4) fL Immature Gran % (Auto) (0.0-0.4) % Neut % (Auto) (45-73) % Lymph % (Auto) (20-40) % Power % (Auto) (2-11) % Eos % (Auto) (0-4) % Baso % (Auto) (0-2) % Lymph # (Auto) (1.2-4.9) X10*3/uL Power # (Auto) (0.1-1.2) X10*3/uL Eos # (Auto) (0.0-0.4) X10*3/uL Baso # (Auto) (0.0-0.2) X10*3/uL Abs Immat Gran (auto) (0.00-0.03) X10*3/uL Absolute Neuts (auto) (2.0-8.3) x10*3/uL Absolute Nucleated RBC (0.0-0.012) X10*3/uL Nucleated RBC % (auto) (0.0-0.2) /100WBC PT 13.7 H (10.0-13.1) SEC INR 1.2 H (0.9-1.1) VBG pH (7.32-7.43) VBG pCO2 mmHg VBG pO2 mmHg VBG HCO3 (22-26) mmol/L VBG O2 Saturation % VBG Base Excess mmol/L Sodium (135-145) mmol/L Potassium (3.3-5.1) mmol/L Chloride (96-108) mmol/L Carbon Dioxide (22-29) mmol/L Anion Gap (12-20) BUN (9-16) mg/dL Creatinine (0.5-1.4) mg/dL Estim Creat Clear Calc Estimated GFR Random Glucose (60-115) mg/dL Lactic Acid 1.4 (0.5-2.0) mmol/L Calcium (8.4-10.2) mg/dL Magnesium (1.6-2.6) mg/dL Total Bilirubin (0.0-1.0) mg/dL Direct Bilirubin (0.0-0.5) mg/dL AST (5-37) U/L ALT (0-40) U/L Alkaline Phosphatase (39-117) U/L Ammonia (13-55) umol/L Total Creatine Kinase (38-174) U/L Troponin I High Sens (<3.5-35.0) ng/L C-Reactive Protein (< or = 0.50) mg/dL Total Protein (6.5-8.0) g/dL Albumin (3.5-5.0) g/dL Lipase (8-78) U/L TSH (0.32-4.0) uIU/mL Urine Color Urine Appearance Urine pH (5.0-9.0) Ur Specific [place] (1.005-1.025) Urine Protein (Neg-Trace) mg/dL Urine Glucose (UA) (Negative) mg/dL Urine Ketones (Negative) mg/dL Urine Blood (Negative) Urine Nitrite (Negative) Ur Leukocyte Esterase (Negative) Urine RBC (0-2) /HPF Urine WBC (0-5) /HPF Ur Squamous Epith Cells (0-2) /HPF Urine Bacteria (None Seen) Hyaline Casts (0-2) /LPF COVID-19 ([facility]) Negative (Negative) COVID-19 Clin Com See Note 11/15/22 11/15/22 11/15/22 Range/Units 11:34 11:35 13:33 WBC (4.8-10.8) X10*3/uL RBC (4.60-5.80) X10*6/uL Hgb (14.0-18.0) g/dl Hct (42.0-52.0) % MCV (80.0-98.0) fL MCH (27.0-33.0) pg MCHC (31.0-36.0) g/dl RDW (11.0-16.0) % Plt Count (160-400) X10*3/uL MPV (9.4-12.4) fL Immature Gran % (Auto) (0.0-0.4) % Neut % (Auto) (45-73) % Lymph % (Auto) (20-40) % Power % (Auto) (2-11) % Eos % (Auto) (0-4) % Baso % (Auto) (0-2) % Lymph # (Auto) (1.2-4.9) X10*3/uL Power # (Auto) (0.1-1.2) X10*3/uL Eos # (Auto) (0.0-0.4) X10*3/uL Baso # (Auto) (0.0-0.2) X10*3/uL Abs Immat Gran (auto) (0.00-0.03) X10*3/uL Absolute Neuts (auto) (2.0-8.3) x10*3/uL Absolute Nucleated RBC (0.0-0.012) X10*3/uL Nucleated RBC % (auto) (0.0-0.2) /100WBC PT (10.0-13.1) SEC INR (0.9-1.1) VBG pH 7.43 (7.32-7.43) VBG pCO2 45 mmHg VBG pO2 47 mmHg VBG HCO3 30 H (22-26) mmol/L VBG O2 Saturation 69.0 % VBG Base Excess 5.5 mmol/L Sodium (135-145) mmol/L Potassium (3.3-5.1) mmol/L Chloride (96-108) mmol/L Carbon Dioxide (22-29) mmol/L Anion Gap (12-20) BUN (9-16) mg/dL Creatinine (0.5-1.4) mg/dL Estim Creat Clear Calc Estimated GFR Random Glucose (60-115) mg/dL Lactic Acid (0.5-2.0) mmol/L Calcium (8.4-10.2) mg/dL Magnesium (1.6-2.6) mg/dL Total Bilirubin (0.0-1.0) mg/dL Direct Bilirubin (0.0-0.5) mg/dL AST (5-37) U/L ALT (0-40) U/L Alkaline Phosphatase (39-117) U/L Ammonia (13-55) umol/L Total Creatine Kinase (38-174) U/L Troponin I High Sens < 3.5 (<3.5-35.0) ng/L C-Reactive Protein (< or = 0.50) mg/dL Total Protein (6.5-8.0) g/dL Albumin (3.5-5.0) g/dL Lipase (8-78) U/L TSH (0.32-4.0) uIU/mL Urine Color Yellow Urine Appearance Clear Urine pH 6.5 (5.0-9.0) Ur Specific [place] 1.025 (1.005-1.025) Urine Protein Trace (Neg-Trace) mg/dL Urine Glucose (UA) Negative (Negative) mg/dL Urine Ketones Negative (Negative) mg/dL Urine Blood Negative (Negative) Urine Nitrite Positive H (Negative) Ur Leukocyte Esterase Small (1+) H (Negative) Urine RBC 0-2 (0-2) /HPF Urine WBC 6-10 (0-5) /HPF Ur Squamous Epith Cells 0-2 (0-2) /HPF Urine Bacteria 1+ (None Seen) Hyaline Casts 0-2 (0-2) /LPF COVID-19 ([facility]) (Negative) COVID-19 Clin Com 11/15/22 Range/Units 15:29 WBC (4.8-10.8) X10*3/uL RBC (4.60-5.80) X10*6/uL Hgb (14.0-18.0) g/dl Hct (42.0-52.0) % MCV (80.0-98.0) fL MCH (27.0-33.0) pg MCHC (31.0-36.0) g/dl RDW (11.0-16.0) % Plt Count (160-400) X10*3/uL MPV (9.4-12.4) fL Immature Gran % (Auto) (0.0-0.4) % Neut % (Auto) (45-73) % Lymph % (Auto) (20-40) % Power % (Auto) (2-11) % Eos % (Auto) (0-4) % Baso % (Auto) (0-2) % Lymph # (Auto) (1.2-4.9) X10*3/uL Power # (Auto) (0.1-1.2) X10*3/uL Eos # (Auto) (0.0-0.4) X10*3/uL Baso # (Auto) (0.0-0.2) X10*3/uL Abs Immat Gran (auto) (0.00-0.03) X10*3/uL Absolute Neuts (auto) (2.0-8.3) x10*3/uL Absolute Nucleated RBC (0.0-0.012) X10*3/uL Nucleated RBC % (auto) (0.0-0.2) /100WBC PT (10.0-13.1) SEC INR (0.9-1.1) VBG pH (7.32-7.43) VBG pCO2 mmHg VBG pO2 mmHg VBG HCO3 (22-26) mmol/L VBG O2 Saturation % VBG Base Excess mmol/L Sodium (135-145) mmol/L Potassium (3.3-5.1) mmol/L Chloride (96-108) mmol/L Carbon Dioxide (22-29) mmol/L Anion Gap (12-20) BUN (9-16) mg/dL Creatinine (0.5-1.4) mg/dL Estim Creat Clear Calc Estimated GFR Random Glucose (60-115) mg/dL Lactic Acid (0.5-2.0) mmol/L Calcium (8.4-10.2) mg/dL Magnesium (1.6-2.6) mg/dL Total Bilirubin (0.0-1.0) mg/dL Direct Bilirubin (0.0-0.5) mg/dL AST (5-37) U/L ALT (0-40) U/L Alkaline Phosphatase (39-117) U/L Ammonia 31 (13-55) umol/L Total Creatine Kinase (38-174) U/L Troponin I High Sens (<3.5-35.0) ng/L C-Reactive Protein (< or = 0.50) mg/dL Total Protein (6.5-8.0) g/dL Albumin (3.5-5.0) g/dL Lipase (8-78) U/L TSH (0.32-4.0) uIU/mL Urine Color Urine Appearance Urine pH (5.0-9.0) Ur Specific [place] (1.005-1.025) Urine Protein (Neg-Trace) mg/dL Urine Glucose (UA) (Negative) mg/dL Urine Ketones (Negative) mg/dL Urine Blood (Negative) Urine Nitrite (Negative) Ur Leukocyte Esterase (Negative) Urine RBC (0-2) /HPF Urine WBC (0-5) /HPF Ur Squamous Epith Cells (0-2) /HPF Urine Bacteria (None Seen) Hyaline Casts (0-2) /LPF COVID-19 ([facility]) (Negative) COVID-19 Clin Com Independent Interpretation I performed an independent interpretation of an: EKG, Plain X-Ray and CT Scan Interpretation: Rate: 81 Rhythm: NSR [place]: left Normal P waves. Normal KADEN. Normal QRS complex. ST T wave : nonspecific ST T wave changes, inverted T waves anterior leads qTC: normal prior studies: chagned from prior The study has been interpreted contemporaneously by me. . Radiology Impression Discussion of test interpretation with radiology: I have reviewed the radiologist's reading. Independent Historian Clinical information obtained from an independent historian. History obtained from or confirmed by: EMS and Other External Record Review External record reviewed: Outpatient record and Prior outpatient labs Social Determinants Patient?s care significantly limited by Social Determinants of Health including: Other Social Determinant of Health Discharge Plan Discharge Clinical Impression: Acute hypernatremia, Acute dehydration, Acute UTI Hypothermia Qualifiers: Encounter type: initial encounter Qualified Code(s): T68.XXXA - Hypothermia, initial encounter Patient Disposition: Admitted As Inpatient
[2022-11-15 11:38] LABS: Venous Blood Gas Refer to POC result
[2022-11-15 11:40] VITALS: BP 124/66; PULSE 81; RESP 30; TEMP 33.4; O2SAT 98
[2022-11-15 11:40] LABS: VBG Base Excess 5.5 mmol/L; VBG HCO3 30 mmol/L (22-26); VBG pCO2 45 mmHg; VBG pH 7.43 (7.32-7.43); VBG pO2 47 mmHg
[2022-11-15 11:42] LABS: MANUAL DIFF FLAG NO
[2022-11-15 11:50] LABS: Basophils Percent Auto 0.6 % (0-2); Eosinophils Absolute Auto 0.6 X10*3/uL (0.0-0.4); Eosinophils Percent Auto 9.5 % (0-4); Hematocrit 38.7 % (42.0-52.0); Hemoglobin 11.8 g/dl (14.0-18.0); Imm Gran Abs Auto 0.11 X10*3/uL (0.00-0.03); Imm Gran Pct Auto 1.6 % (0.0-0.4); Lymphocytes Absolute Auto 1.6 X10*3/uL (1.2-4.9); Lymphocytes Percent Auto 24.3 % (20-40); Mean Corpuscular HGB Conc 30.5 g/dl (31.0-36.0); Mean Corpuscular Hemoglobin 26.6 pg (27.0-33.0); Mean Corpuscular Volume 87.2 fL (80.0-98.0); Mean Platelet Volume 9.4 fL (9.4-12.4); Monocytes Absolute Auto 0.6 X10*3/uL (0.1-1.2); Monocytes Percent Auto 9.2 % (2-11); Neutrophils Absolute Auto 3.7 x10*3/uL (2.0-8.3); Neutrophils Percent Auto 54.8 % (45-73); Platelet Count 339 X10*3/uL (160-400); Red Blood Count 4.44 X10*6/uL (4.60-5.80); Red Cell Distribution Width 16.9 % (11.0-16.0); White Blood Count 6.8 X10*3/uL (4.8-10.8)
[2022-11-15 11:56] LABS: INTERNATIONAL NORM RATIO 1.2 (0.9-1.1); Prothrombin Time 13.7 SEC (10.0-13.1)
[2022-11-15 11:58] LABS: Lactic Acid 1.4 mmol/L (0.5-2.0)
[2022-11-15 12:10] LABS: COVID-19 Test Negative (Negative); IDNOW Serial# 6674DD1D
[2022-11-15 12:14] LABS: Troponin-I High Sensitivity < 3.5 ng/L (<3.5-35.0)
[2022-11-15 12:20] LABS: TSH reflex Free T4 0.61 uIU/mL (0.32-4.0)
[2022-11-15 12:23] LABS: Alanine Aminotransferase 45 U/L (0-40); Albumin Level 2.9 g/dL (3.5-5.0); Alkaline Phosphatase 117 U/L (39-117); Anion Gap 12 (12-20); Aspartate Amino Transferase 29 U/L (5-37); Bilirubin Direct < 0.2 mg/dL (0.0-0.5); Bilirubin Total 0.4 mg/dL (0.0-1.0); Blood Urea Nitrogen 21 mg/dL (9-16); Calcium 8.9 mg/dL (8.4-10.2); Carbon Dioxide 28 mmol/L (22-29); Chloride 116 mmol/L (96-108); Creatinine Clr Calc Pharmacy 52.1; Estimated Glomerular Filt Rate > 60; Glucose Random 85 mg/dL (60-115); Lipase 7 U/L (8-78); Magnesium 2.1 mg/dL (1.6-2.6); Potassium 4.1 mmol/L (3.3-5.1); Sodium 152 mmol/L (135-145)
[2022-11-15 13:42] LABS: Appearance Urine Clear; Color Urine Yellow; Glucose Urine UA Negative (Negative); Leukocyte Esterase Urine Small (1+) (Negative); Nitrite Urine Positive (Negative); PH 6.5 (5.0-9.0); Specific Gravity - Urine 1.025 (1.005-1.025); UMIC TRIGGER UACC YES; Urine Blood Negative (Negative); Urine Ketones Negative (Negative); Urine Protein Trace mg/dL (Neg-Trace)
[2022-11-15 13:55] LABS: Bacteria Urine 1+ (None Seen); Hyaline Casts Urine 0-2 /LPF (0-2); RBC Urine 0-2 /HPF (0-2); Squamous Epithelial Cell Urine 0-2 /HPF (0-2); UACC Culture Trigger YES
[2022-11-15] MEDS: cefTRIAXone sodium 1 GM in 0.9 % Sodium Chloride 50 ML IV (14:09)
[2022-11-15 14:10] VITALS: TEMP 36.3
--- NOTE | 2022-11-15 14:43 | PM.IMHP ---
History of Present Illness Date of Service: 11/15/22 Chief Complaint: hypothermia 82-year-old man presenting from [facility] with increased lethargy, hypotension and hypothermia. Patient has presented with similar symptoms in the past and has usually been caused by infectious source. Unfortunately the patient is unable to give any accurate information and he is unaccompanied. Temperature was 92.1 degrees, Miguel Hugger placed with good effect. Hypotension resolved. No lactic acid are leukocytosis noted urinalysis positive. He was started on IV Rocephin. He will be admitted for further management and treatment of sepsis secondary to UTI. Review of Systems Review of Systems: Yes Unobtainable due to mental status [facility] Medical History Atrial fibrillation COPD (chronic obstructive pulmonary disease) Dementia Malignant neoplasm of prostate Occipital infarction Prostate cancer Schizophrenia Family History Other Family history unknown Social History Household Members: Other Housing: Assisted Living Facility Unable to assess alcohol history related to: Unable to respond Alcohol intake: unknown Patient Tobacco Use Status: Tobacco use Unknown Use of substances other than those prescribed or required for medical reasons: Unknown Advance Directives: Yes Advance Directives on File: Yes Advance Directives Date on File: 05/18/22 service: No Meds Allergies Allergy/AdvReac Type Severity Reaction Status Date / Time No Known Allergies Allergy Unverified 06/19/20 17:10 [No Known Allergies*] Active Medications: Current Medications Pharmacy Consult (Consult Rx Perform Med Rec) 1 each MISCELLANE ONCE PRN PRN Reason: Consult order Home Medications Medication Instructions Recorded Confirmed Last Taken Type acetaminophen 325 mg tablet 650 mg PO Q4H PRN PAIN/TEMP 12/30/21 11/15/22 Unknown History atorvastatin 20 mg tablet 20 mg PO BEDTIME 12/30/21 11/15/22 02/05/22 History bisacodyl 10 mg rectal suppository 10 mg NM DAILY PRN Constipation 12/30/21 11/15/22 Unknown History chlorpromazine 25 mg tablet 50 mg PO BID 12/30/21 11/15/22 02/06/22 History esomeprazole magnesium 40 mg 40 mg PO BIDAC 12/30/21 11/15/22 02/06/22 History capsule,delayed release (Nexium) gabapentin 100 mg capsule 100 mg PO BID 12/30/21 11/15/22 02/06/22 History haloperidol decanoate 50 mg/mL 10 mg IM Q14D 12/30/21 11/15/22 11/02/22 History intramuscular solution (Haldol Decanoate) lactulose 10 gram/15 mL oral 20 g PO BID 12/30/21 11/15/22 02/06/22 History solution multivitamin 1 tab PO DAILY 12/30/21 11/15/22 02/06/22 History propranolol 20 mg tablet 20 mg PO TID 12/30/21 11/15/22 02/06/22 History sennosides 8.6 mg tablet (senna) 8.6 mg PO DAILY PRN Constipation 12/30/21 11/15/22 Unknown History sennosides 8.6 mg-docusate sodium 2 tab-cap PO BID 12/30/21 11/15/22 02/06/22 History 50 mg tablet (Senna Plus) tamsulosin 0.4 mg capsule 0.4 mg PO DAILY@1900 12/30/21 11/15/22 02/05/22 History tramadol 50 mg tablet 50 mg PO Q8H PRN Pain (Scale Score 12/30/21 11/15/22 Unknown History 4-6) metoclopramide HCl 10 mg tablet 10 mg PO BIDAC 02/06/22 11/15/22 02/06/22 History levetiracetam 100 mg/mL oral 500 mg PO BID 02/13/22 11/15/22 Unknown History solution levothyroxine 100 mcg tablet 1 tab PO DAILY@0630 05/15/22 11/15/22 Unknown History acidophilus 100 million 1 cap PO DAILY 11/15/22 11/15/22 Unknown History cell-pectin, citrus 10 mg capsule arginine (L-arginine) 500 mg oral 500 mg PO DAILY 11/15/22 11/15/22 Unknown History powder packet Physical Exam Vital Signs and Narrative: Vital Signs: Last Vital Signs Temp 97.3 F 11/15/22 14:10 Pulse 81 11/15/22 11:40 Resp 30 H 11/15/22 11:40 BP 124/66 11/15/22 11:40 Pulse Ox 98 11/15/22 11:40 O2 Del Method 11/15/22 11:40 BMI result Body Mass Index 17.4 Appearing in no acute distress, mildly combative, swinging his arms, nonambulatory head is normocephalic atraumatic eyes pupils are PERRLA sclera is anicteric mouth throat mucous membranes are intact and moist neck is supple no lymphadenopathy, no JVD noted lung sounds are clear to auscultation heart regular rate rhythm, clear S1, S2 positive bowel sounds, abdomen is soft, nontender neuro patient is alert, confused Musculoskeletal severe lower extremity contractures Results Labs 11/15/22 11:33 11/15/22 11:34 Labs: Laboratory Results - last 24 hr 11/15/22 11/15/22 11/15/22 11:33 11:33 11:34 MCV 87.2 MCH 26.6 L MCHC 30.5 L RDW 16.9 H Plt Count 339 D MPV 9.4 Immature Gran % (Auto) 1.6 H Neut % (Auto) 54.8 Lymph % (Auto) 24.3 [place] % (Auto) 9.2 Eos % (Auto) 9.5 H Baso % (Auto) 0.6 Lymph # (Auto) 1.6 [place] # (Auto) 0.6 Eos # (Auto) 0.6 H Baso # (Auto) 0.0 Abs Immat Gran (auto) 0.11 H Absolute Neuts (auto) 3.7 Absolute Nucleated RBC 0.000 Nucleated RBC % (auto) 0.0 PT INR VBG pH VBG pCO2 VBG pO2 VBG HCO3 VBG O2 Saturation VBG Base Excess Anion Gap 12 Estim Creat Clear Calc 52.1 Estimated GFR > 60 Random Glucose 85 Lactic Acid Calcium 8.9 Magnesium 2.1 Total Bilirubin 0.4 Direct Bilirubin < 0.2 AST 29 ALT 45 H Alkaline Phosphatase 117 Total Creatine Kinase 67 Troponin I High Sens C-Reactive Protein 14.80 H Total Protein 6.0 L Albumin 2.9 L Lipase 7 L TSH 0.61 Urine Color Urine Appearance Urine pH Ur Specific [place] Urine Protein Urine Glucose (UA) Urine Ketones Urine Blood Urine Nitrite Ur Leukocyte Esterase Urine RBC Urine WBC Ur Squamous Epith Cells Urine Bacteria Hyaline Casts COVID-19 ([facility]) COVID-19 Clin Com 11/15/22 11/15/22 11/15/22 11:34 11:34 11:34 MCV MCH MCHC RDW Plt Count MPV Immature Gran % (Auto) Neut % (Auto) Lymph % (Auto) [place] % (Auto) Eos % (Auto) Baso % (Auto) Lymph # (Auto) [place] # (Auto) Eos # (Auto) Baso # (Auto) Abs Immat Gran (auto) Absolute Neuts (auto) Absolute Nucleated RBC Nucleated RBC % (auto) PT 13.7 H INR 1.2 H VBG pH VBG pCO2 VBG pO2 VBG HCO3 VBG O2 Saturation VBG Base Excess Anion Gap Estim Creat Clear Calc Estimated GFR Random Glucose Lactic Acid 1.4 Calcium Magnesium Total Bilirubin Direct Bilirubin AST ALT Alkaline Phosphatase Total Creatine Kinase Troponin I High Sens C-Reactive Protein Total Protein Albumin Lipase TSH Urine Color Urine Appearance Urine pH Ur Specific [place] Urine Protein Urine Glucose (UA) Urine Ketones Urine Blood Urine Nitrite Ur Leukocyte Esterase Urine RBC Urine WBC Ur Squamous Epith Cells Urine Bacteria Hyaline Casts COVID-19 ([facility]) Negative COVID-19 Clin Com See Note 11/15/22 11/15/22 11/15/22 11:34 11:35 13:33 MCV MCH MCHC RDW Plt Count MPV Immature Gran % (Auto) Neut % (Auto) Lymph % (Auto) [place] % (Auto) Eos % (Auto) Baso % (Auto) Lymph # (Auto) [place] # (Auto) Eos # (Auto) Baso # (Auto) Abs Immat Gran (auto) Absolute Neuts (auto) Absolute Nucleated RBC Nucleated RBC % (auto) PT INR VBG pH 7.43 VBG pCO2 45 VBG pO2 47 VBG HCO3 30 H VBG O2 Saturation 69.0 VBG Base Excess 5.5 Anion Gap Estim Creat Clear Calc Estimated GFR Random Glucose Lactic Acid Calcium Magnesium Total Bilirubin Direct Bilirubin AST ALT Alkaline Phosphatase Total Creatine Kinase Troponin I High Sens < 3.5 C-Reactive Protein Total Protein Albumin Lipase TSH Urine Color Yellow Urine Appearance Clear Urine pH 6.5 Ur Specific [place] 1.025 Urine Protein Trace Urine Glucose (UA) Negative Urine Ketones Negative Urine Blood Negative Urine Nitrite Positive H Ur Leukocyte Esterase Small (1+) H Urine RBC 0-2 Urine WBC 6-10 Ur Squamous Epith Cells 0-2 Urine Bacteria 1+ Hyaline Casts 0-2 COVID-19 ([facility]) COVID-19 Clin Com Imaging Radiologist's Impressions: Impressions Chest X-Ray 11/15/22 12:05 IMPRESSION: Low lung volumes. No airspace consolidation, vascular congestion, or effusion. Head CT 11/15/22 12:09 IMPRESSION: No substantial change from prior imaging. There is asymmetric cortical encephalomalacia involving the right occipital lobe and numerous chronic small vessel ischemic changes throughout the periventricular white matter. No evidence of acute territorial infarct or hemorrhage. Assessment and Plan (1) Hypothermia: Qualifiers: Encounter type: initial encounter Qualified Code(s): T68.XXXA - Hypothermia, initial encounter Status: Acute Plan 82 year old man from [facility] with acute confusion and hypothermia Sepsis secondary to UTI hypothermia, tachypnea, normal lactic acid hypothermia improved with bear hugger Start Rocephin follow urine cx Hypernatremia Likely secondary to dehydration Continue IV fluids Recheck BMP this evening Hypotension resolved hold BP lowering medications GERD PPI Mental health continue home medications seizure disorder Keppra Hypothyroidism Can not continue levothyroxine BPH Hold tamsulosin for now due to hypotension History of atrial fibrillation Not on anticoagulation due to risk of bleeding Dementia Lives at [facility] DVT prophylaxis with Lovenox Attending Dr. Valdez Full code Two inpatient midnights for treatment of sepsis secondary to UTI requiring IV antibiotics and IV fluids for dehydration and electrolyte abnormalitie Time Spent With Patient Time: Total time managing care of this patient today ____ minutes. Quality Stroke Does the patient have a stroke diagnosis?: No VTE Prior VTE?: No VTE Risk Level:: Medical - moderate - high VTE Device Contraindication: Treatment Not Indicated VTE Drug Contraindication: N/A - Med Ordered
[2022-11-15] MEDS: Lactated Ringers 1,000 ML 999 ML IV (15:03)
--- NOTE | 2022-11-15 15:15 | PHA.MEDREC ---
Pharmacy Consult ? Medication Reconciliation Pharmacy has completed the medication reconciliation. List from [facility] [place], last haldol injection was 11/02/22 confirmed with facility
[2022-11-15 15:51] LABS: Ammonia 31 umol/L (13-55)
[2022-11-15 16:26] VITALS: BP 145/91; PULSE 102; RESP 12; TEMP 35.8; O2SAT 97
[2022-11-15] MEDS: Enoxaparin Sodium 40 MG/0.4 ML SYRINGE SUBCUT (17:01)
[2022-11-15] MEDS: Metoclopramide HCl 10 MG TABLET PO (18:00)
[2022-11-15] MEDS: Omeprazole 20 MG CAPSULE.DR PO (18:00)
[2022-11-15] MEDS: 0.9 % Sodium Chloride 1,000 ML 100 ML IVCONT (18:11)
[2022-11-15 18:16] LABS: Anion Gap 14 (12-20); Blood Urea Nitrogen 18 mg/dL (9-16); Calcium 8.2 mg/dL (8.4-10.2); Carbon Dioxide 24 mmol/L (22-29); Chloride 116 mmol/L (96-108); Creatinine Clr Calc Pharmacy 53.6; Estimated Glomerular Filt Rate > 60; Glucose Random 97 mg/dL (60-115); Potassium 4.8 mmol/L (3.3-5.1); Sodium 149 mmol/L (135-145)
[2022-11-15] MEDS: Sennosides/Docusate Sodium TABLET 2 TAB PO (21:25)
[2022-11-15] MEDS: Atorvastatin Calcium 20 MG TABLET PO (21:25)
[2022-11-15] MEDS: Gabapentin 100 MG CAPSULE PO (21:25)
[2022-11-15] MEDS: Lactulose 20 GM/30 ML SOLUTION PO (21:26)
[2022-11-15] MEDS: levETIRAcetam Oral Soln 500 MG/5 ML PO (21:26)
--- NOTE | 2022-11-15 22:29 | PC.NURSE ---
pt in bed confused, pt medicated per Dec. Pt reposition for comfort. Pt has multiple wounds, per prior RN Ayo provider into access wounds. Will continue to monitor.
[2022-11-15 22:56] VITALS: BP 144/90; PULSE 114; RESP 20; O2SAT 96
[2022-11-16] MEDS: 0.9 % Sodium Chloride Flush 3 ML SYRINGE IVFLUSH ×2 (01:09→20:52)
[2022-11-16] MEDS: 0.9 % Sodium Chloride 1,000 ML 100 ML IVCONT ×3 (01:54→20:55)
--- NOTE | 2022-11-16 01:59 | PC.NURSE ---
Pt reposition for comfort and medicated per Mar.
--- NOTE | 2022-11-16 01:59 | PC.NURSE ---
pt change into a hospital bed.
--- NOTE | 2022-11-16 02:07 | PC.NURSE ---
pt able to drink water with no sign of aspiration, able to swallow medication crushed in apple sauce with no difficulty.
--- NOTE | 2022-11-16 04:59 | PC.NURSE ---
pt repositioned and driving some water to drink. Pt tolerated well. Will continue to monitor.
[2022-11-16] MEDS: Levothyroxine Sodium 100 MCG TABLET PO (05:40)
--- NOTE | 2022-11-16 05:41 | PC.NURSE ---
pt medicated per Mar. Will continue to monitor.
[2022-11-16 06:11] VITALS: BP 138/75; PULSE 96; RESP 14; TEMP 35.2; O2SAT 96
[2022-11-16 06:56] VITALS: TEMP 35.7
[2022-11-16 07:06] VITALS: BP 145/79; PULSE 93; RESP 16; TEMP 35.7; O2SAT 95
[2022-11-16 07:30] LABS: MANUAL DIFF FLAG NO
[2022-11-16] MEDS: Omeprazole 20 MG CAPSULE.DR PO ×2 (07:31→16:20)
[2022-11-16] MEDS: Metoclopramide HCl 10 MG TABLET PO ×2 (07:31→16:20)
[2022-11-16 07:34] LABS: Basophils Percent Auto 0.6 % (0-2); Eosinophils Absolute Auto 0.6 X10*3/uL (0.0-0.4); Eosinophils Percent Auto 9.3 % (0-4); Hematocrit 33.4 % (42.0-52.0); Hemoglobin 10.3 g/dl (14.0-18.0); Imm Gran Abs Auto 0.07 X10*3/uL (0.00-0.03); Imm Gran Pct Auto 1.1 % (0.0-0.4); Lymphocytes Absolute Auto 1.2 X10*3/uL (1.2-4.9); Lymphocytes Percent Auto 18.7 % (20-40); Mean Corpuscular HGB Conc 30.8 g/dl (31.0-36.0); Mean Corpuscular Hemoglobin 26.5 pg (27.0-33.0); Mean Corpuscular Volume 86.1 fL (80.0-98.0); Mean Platelet Volume 9.4 fL (9.4-12.4); Monocytes Absolute Auto 0.5 X10*3/uL (0.1-1.2); Monocytes Percent Auto 8.1 % (2-11); Neutrophils Absolute Auto 4.1 x10*3/uL (2.0-8.3); Neutrophils Percent Auto 62.2 % (45-73); Platelet Count 329 X10*3/uL (160-400); Red Blood Count 3.88 X10*6/uL (4.60-5.80); Red Cell Distribution Width 16.8 % (11.0-16.0); White Blood Count 6.5 X10*3/uL (4.8-10.8)
[2022-11-16 07:52] LABS: Anion Gap 13 (12-20); Blood Urea Nitrogen 16 mg/dL (9-16); Calcium 8.3 mg/dL (8.4-10.2); Carbon Dioxide 22 mmol/L (22-29); Chloride 118 mmol/L (96-108); Creatinine Clr Calc Pharmacy 59.7; Estimated Glomerular Filt Rate > 60; Glucose Random 88 mg/dL (60-115); Potassium 4.1 mmol/L (3.3-5.1); Sodium 149 mmol/L (135-145)
--- NOTE | 2022-11-16 08:07 | MHC.EDTECH ---
Pt was assisted with eating breakfast. Pt tolerated activity well. Pt consumed 90% of meal with a oral intake of 360cc's.
[2022-11-16 08:30] VITALS: TEMP 36.4
[2022-11-16] MEDS: Lactulose 20 GM/30 ML SOLUTION PO ×2 (09:29→20:51)
[2022-11-16] MEDS: Aspirin 81 MG TAB.CHEW PO (09:29)
[2022-11-16] MEDS: levETIRAcetam Oral Soln 500 MG/5 ML PO ×2 (09:30→20:51)
[2022-11-16] MEDS: Sennosides/Docusate Sodium TABLET 2 TAB PO ×2 (09:30→20:51)
[2022-11-16] MEDS: Multivitamin TABLET 1 TAB PO (09:30)
[2022-11-16] MEDS: Gabapentin 100 MG CAPSULE PO ×2 (09:30→20:51)
[2022-11-16] MEDS: Finasteride 5 MG TABLET PO (10:46)
--- NOTE | 2022-11-16 11:00 | MHC.CM.PN ---
Addendum entered by Breanna Sorensen 11/16/22 11:09: COPY OF IMM SENT TO [facility] Addendum entered by Breanna Sorensen 11/16/22 11:05: CM CALLED [facility], SHANEKA MORE [phone] SHE ASKS THAT PTS IMM BE FAXED TO [phone] SENT DCP: RETURN TO [facility] VIA BLS Original Note: PT IS A LTC RESIDENT AT [facility]
--- NOTE | 2022-11-16 11:19 | HO.PM.IMPN ---
Subjective Subjective Date of Service: 11/16/22 Physical Exam Vital Signs: Vital Signs: Last Vital Signs Temp 97.6 F 11/16/22 08:30 Pulse 93 11/16/22 07:06 Resp 16 11/16/22 07:06 BP 145/79 H 11/16/22 07:06 Pulse Ox 95 11/16/22 07:06 O2 Del Method 11/16/22 07:06 O2 Flow Rate 2 11/16/22 07:06 BMI result Body Mass Index 17.4 Objective Data Active Medications Acetaminophen (Acetaminophen 325 Mg Tablet) 650 mg PO Q6H PRN PRN Reason: Pain, Mild (Pain Scale 1-3) Aspirin (Aspirin 81 Mg Tab.Chew) 81 mg PO DAILY [facility] Last Admin: 11/16/22 09:29 Dose: 81 mg Documented By: GI Atorvastatin Calcium (Atorvastatin Calcium 20 Mg Tablet) 20 mg PO BEDTIME [facility] Last Admin: 11/15/22 21:25 Dose: 20 mg Documented By: FITO Bisacodyl (Bisacodyl 10 Mg Supp.Rect) 10 mg NC DAILY PRN PRN Reason: Constipation Enoxaparin Sodium (Enoxaparin Sodium 40 Mg/0.4 Ml Syringe) 40 mg SUBCUT Q24H [facility] Last Admin: 11/15/22 17:01 Dose: 40 mg Documented By: DAVID Finasteride (Finasteride 5 Mg Tablet) 5 mg PO DAILY [facility] Last Admin: 11/16/22 10:46 Dose: 5 mg Documented By: GI Comments: given late, not in pyxis, awaiting pharmacy delivery Gabapentin (Gabapentin 100 Mg Capsule) 100 mg PO BID [facility] Last Admin: 11/16/22 09:30 Dose: 100 mg Documented By: GI Haloperidol Decanoate (Haloperidol Decanoate 50 Mg/Ml Ampul) 10 mg IM Q14D [facility] Ceftriaxone Sodium 1 gm/ (Sodium Chloride) 50 mls @ 100 mls/hr IV Q24H [facility] Sodium Chloride (Ns) 1,000 mls @ 100 mls/hr IVCONT .Q10H [facility] Last Admin: 11/16/22 01:54 Dose: 100 mls/hr Documented By: CONSTANTIN Lactulose (Lactulose 20 Gm/30 Ml Solution) 20 gm PO BID [facility] Last Admin: 11/16/22 09:29 Dose: 20 gm Documented By: GI Levetiracetam (Levetiracetam Oral Soln 500 Mg/5 Ml) 500 mg PO BID [facility] Last Admin: 11/16/22 09:30 Dose: 500 mg Documented By: GI Levothyroxine Sodium (Levothyroxine Sodium 100 Mcg Tablet) 100 mcg PO DAILY@0600 [facility] Last Admin: 11/16/22 05:40 Dose: 100 mcg Documented By: CONSTANTIN Metoclopramide HCl (Metoclopramide Hcl 10 Mg Tablet) 10 mg PO BIDAC [facility] Last Admin: 11/16/22 07:31 Dose: 10 mg Documented By: GI Multivitamins/Vitamin C (Multivitamin Tablet) 1 tab PO DAILY [facility] Last Admin: 11/16/22 09:30 Dose: 1 tab Documented By: GI Omeprazole (Omeprazole 20 Mg Capsule.Dr) 20 mg PO BIDAC [facility] Last Admin: 11/16/22 07:31 Dose: 20 mg Documented By: GI Ondansetron HCl (Ondansetron Hcl 4 Mg/2 Ml Vial) 4 mg IVPUSH Q8H PRN PRN Reason: Nausea and Vomiting Pharmacy Consult (Consult Rx Perform Med Rec) 1 each MISCELLANE ONCE PRN PRN Reason: Consult order Senna (Sennosides 8.6 Mg Tablet) 8.6 mg PO DAILY PRN PRN Reason: Constipation Senna/Docusate Sodium (Sennosides/Docusate Sodium Tablet) 2 tab PO BID [facility] Last Admin: 11/16/22 09:30 Dose: 2 tab Documented By: GI Sodium Chloride (0.9 % Sodium Chloride Flush 3 Ml Syringe) 3 ml IVFLUSH QSHIFT [facility] Last Admin: 11/16/22 07:39 Dose: Not Given Documented By: GI Non-Admin Reason: IV Running Tramadol HCl (Tramadol Hcl 50 Mg Tablet) 50 mg PO Q8H PRN PRN Reason: Pain (Scale Score 4-6) Labs 11/16/22 07:03 11/16/22 07:03 Labs: Laboratory Results - last 24 hr 11/15/22 11/15/22 11/15/22 11:33 11:33 11:34 MCV 87.2 MCH 26.6 L MCHC 30.5 L RDW 16.9 H Plt Count 339 D MPV 9.4 Immature Gran % (Auto) 1.6 H Neut % (Auto) 54.8 Lymph % (Auto) 24.3 [place] % (Auto) 9.2 Eos % (Auto) 9.5 H Baso % (Auto) 0.6 Lymph # (Auto) 1.6 [place] # (Auto) 0.6 Eos # (Auto) 0.6 H Baso # (Auto) 0.0 Abs Immat Gran (auto) 0.11 H Absolute Neuts (auto) 3.7 Absolute Nucleated RBC 0.000 Nucleated RBC % (auto) 0.0 PT INR VBG pH VBG pCO2 VBG pO2 VBG HCO3 VBG O2 Saturation VBG Base Excess Anion Gap 12 Estim Creat Clear Calc 52.1 Estimated GFR > 60 Random Glucose 85 Lactic Acid Calcium 8.9 Magnesium 2.1 Total Bilirubin 0.4 Direct Bilirubin < 0.2 AST 29 ALT 45 H Alkaline Phosphatase 117 Ammonia Total Creatine Kinase 67 Troponin I High Sens C-Reactive Protein 14.80 H Total Protein 6.0 L Albumin 2.9 L Lipase 7 L TSH 0.61 Urine Color Urine Appearance Urine pH Ur Specific [place] Urine Protein Urine Glucose (UA) Urine Ketones Urine Blood Urine Nitrite Ur Leukocyte Esterase Urine RBC Urine WBC Ur Squamous Epith Cells Urine Bacteria Hyaline Casts COVID-19 ([facility]) COVID-19 Clin Com 11/15/22 11/15/22 11/15/22 11:34 11:34 11:34 MCV MCH MCHC RDW Plt Count MPV Immature Gran % (Auto) Neut % (Auto) Lymph % (Auto) [place] % (Auto) Eos % (Auto) Baso % (Auto) Lymph # (Auto) [place] # (Auto) Eos # (Auto) Baso # (Auto) Abs Immat Gran (auto) Absolute Neuts (auto) Absolute Nucleated RBC Nucleated RBC % (auto) PT 13.7 H INR 1.2 H VBG pH VBG pCO2 VBG pO2 VBG HCO3 VBG O2 Saturation VBG Base Excess Anion Gap Estim Creat Clear Calc Estimated GFR Random Glucose Lactic Acid 1.4 Calcium Magnesium Total Bilirubin Direct Bilirubin AST ALT Alkaline Phosphatase Ammonia Total Creatine Kinase Troponin I High Sens C-Reactive Protein Total Protein Albumin Lipase TSH Urine Color Urine Appearance Urine pH Ur Specific [place] Urine Protein Urine Glucose (UA) Urine Ketones Urine Blood Urine Nitrite Ur Leukocyte Esterase Urine RBC Urine WBC Ur Squamous Epith Cells Urine Bacteria Hyaline Casts COVID-19 ([facility]) Negative COVID-19 Clin Com See Note 11/15/22 11/15/22 11/15/22 11:34 11:35 13:33 MCV MCH MCHC RDW Plt Count MPV Immature Gran % (Auto) Neut % (Auto) Lymph % (Auto) [place] % (Auto) Eos % (Auto) Baso % (Auto) Lymph # (Auto) [place] # (Auto) Eos # (Auto) Baso # (Auto) Abs Immat Gran (auto) Absolute Neuts (auto) Absolute Nucleated RBC Nucleated RBC % (auto) PT INR VBG pH 7.43 VBG pCO2 45 VBG pO2 47 VBG HCO3 30 H VBG O2 Saturation 69.0 VBG Base Excess 5.5 Anion Gap Estim Creat Clear Calc Estimated GFR Random Glucose Lactic Acid Calcium Magnesium Total Bilirubin Direct Bilirubin AST ALT Alkaline Phosphatase Ammonia Total Creatine Kinase Troponin I High Sens < 3.5 C-Reactive Protein Total Protein Albumin Lipase TSH Urine Color Yellow Urine Appearance Clear Urine pH 6.5 Ur Specific [place] 1.025 Urine Protein Trace Urine Glucose (UA) Negative Urine Ketones Negative Urine Blood Negative Urine Nitrite Positive H Ur Leukocyte Esterase Small (1+) H Urine RBC 0-2 Urine WBC 6-10 Ur Squamous Epith Cells 0-2 Urine Bacteria 1+ Hyaline Casts 0-2 COVID-19 ([facility]) COVID-19 Clin Com 11/15/22 11/15/22 11/16/22 15:29 17:46 07:03 MCV 86.1 MCH 26.5 L MCHC 30.8 L RDW 16.8 H Plt Count 329 MPV 9.4 Immature Gran % (Auto) 1.1 H Neut % (Auto) 62.2 Lymph % (Auto) 18.7 L [place] % (Auto) 8.1 Eos % (Auto) 9.3 H Baso % (Auto) 0.6 Lymph # (Auto) 1.2 [place] # (Auto) 0.5 Eos # (Auto) 0.6 H Baso # (Auto) 0.0 Abs Immat Gran (auto) 0.07 H Absolute Neuts (auto) 4.1 Absolute Nucleated RBC 0.000 Nucleated RBC % (auto) 0.0 PT INR VBG pH VBG pCO2 VBG pO2 VBG HCO3 VBG O2 Saturation VBG Base Excess Anion Gap 14 Estim Creat Clear Calc 53.6 Estimated GFR > 60 Random Glucose 97 Lactic Acid Calcium 8.2 L D Magnesium Total Bilirubin Direct Bilirubin AST ALT Alkaline Phosphatase Ammonia 31 Total Creatine Kinase Troponin I High Sens C-Reactive Protein Total Protein Albumin Lipase TSH Urine Color Urine Appearance Urine pH Ur Specific [place] Urine Protein Urine Glucose (UA) Urine Ketones Urine Blood Urine Nitrite Ur Leukocyte Esterase Urine RBC Urine WBC Ur Squamous Epith Cells Urine Bacteria Hyaline Casts COVID-19 ([facility]) COVID-19 Clin Com 11/16/22 07:03 MCV MCH MCHC RDW Plt Count MPV Immature Gran % (Auto) Neut % (Auto) Lymph % (Auto) [place] % (Auto) Eos % (Auto) Baso % (Auto) Lymph # (Auto) [place] # (Auto) Eos # (Auto) Baso # (Auto) Abs Immat Gran (auto) Absolute Neuts (auto) Absolute Nucleated RBC Nucleated RBC % (auto) PT INR VBG pH VBG pCO2 VBG pO2 VBG HCO3 VBG O2 Saturation VBG Base Excess Anion Gap 13 Estim Creat Clear Calc 59.7 Estimated GFR > 60 Random Glucose 88 Lactic Acid Calcium 8.3 L Magnesium Total Bilirubin Direct Bilirubin AST ALT Alkaline Phosphatase Ammonia Total Creatine Kinase Troponin I High Sens C-Reactive Protein Total Protein Albumin Lipase TSH Urine Color Urine Appearance Urine pH Ur Specific [place] Urine Protein Urine Glucose (UA) Urine Ketones Urine Blood Urine Nitrite Ur Leukocyte Esterase Urine RBC Urine WBC Ur Squamous Epith Cells Urine Bacteria Hyaline Casts COVID-19 ([facility]) COVID-19 Clin Com Microbiology Microbiology Results: Microbiology 11/15/22 Unknown Urine Culture - Final Urine clean catch - Urine hooks top Assessment and Plan (1) Acute hypernatremia: Status: Acute Plan 82 year old man from [facility] with acute confusion and hypothermia ? constipation check KUB Sepsis secondary to UTI hypothermia, tachypnea, normal lactic acid hypothermia improved with bear hugger Continue Rocephin follow urine cx Hypernatremia. Sodium slowly trending down Likely secondary to dehydration Continue IV fluids Follow BMP Hypotension resolved hold BP lowering medications GERD PPI Mental health continue home medications seizure disorder Seizure precautions Keppra Hypothyroidism continue levothyroxine BPH Hold tamsulosin for now due to hypotension History of atrial fibrillation Not on anticoagulation due to risk of bleeding Dementia Lives at [facility] DVT prophylaxis with Lovenox Attending Dr. Armendariz Full code Continue hospitalization for UTI requiring IV antibiotics and IV fluids for dehydration and electrolyte abnormalities Time Spent With Patient Time: Total time managing care of this patient today ____ minutes. Quality Stroke Does the patient have a stroke diagnosis?: No VTE Prior VTE?: No VTE Risk Level:: Medical - moderate - high VTE Device Contraindication: Treatment Not Indicated VTE Drug Contraindication: N/A - Med Ordered
--- NOTE | 2022-11-16 11:29 | P.CDIC_ITS ---
CDI Concurrent Query Documentation Clarification: PHYSICIAN'S DOCUMENTATION REQUEST Date of Query: 11/16/22 1130 Patient Name: Juan Sanders Admit Date: 11/15/22 Dear Doctor, A review of the medical record indicates additional documentation may be needed. Please review below and update the documentation accordingly. Clinical Indicators: Risk Factors/Clinical Indicators/Treatments Dx: Seizure disorder on Keppra Seizure precautions. [facility] resident. If possible, please further clarify in the Progress Notes, the type/etiology, acuity and control status of seizure(s): Specify type/etiology: * Idiopathic * Febrile (specify simple or complex) * Generalized epilepsy (grand mal, myoclonic, atonic, clonic, tonic-clonic, etc.) * Focal or partial (specify simple or complex) * Petit mal * Recurrent - further specify type/etiology Specify control status: * Well controlled * Intractable * Poorly controlled * Refractory * Other * Unable to determine Use of terms such as suspected, likely, concern for, or probable (associated with a specific diagnosis that is being evaluated, monitored, or treated as if it exists) are acceptable and can be coded in the inpatient setting, when docume nted at the time of discharge. Thank you, Sarah Sandra [facility], CDIS Extension: [phone] Please use your independent medical judgment in providing your response. THIS QUERY IS PART OF THE PERMANENT MEDICAL RECORD Other Diagnosis: unable to determine
--- NOTE | 2022-11-16 11:29 | MHC.CDI.CONC ---
CDI Concurrent Query Documentation Clarification: PHYSICIAN'S DOCUMENTATION REQUEST Date of Query: 11/16/22 1130 Patient Name: Juan Sanders Admit Date: 11/15/22 Dear Doctor, A review of the medical record indicates additional documentation may be needed. Please review below and update the documentation accordingly. Clinical Indicators: Risk Factors/Clinical Indicators/Treatments Dx: Seizure disorder on Keppra Seizure precautions. [facility] resident. 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 Thank you, Sarah Sandra [facility], CDIS Extension: [phone] Please use your independent medical judgment in providing your response. THIS QUERY IS PART OF THE PERMANENT MEDICAL RECORD Other Diagnosis: unable to determine
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
[2022-11-16 14:10] VITALS: BP 130/65; PULSE 113; RESP 12; O2SAT 98
--- NOTE | 2022-11-16 14:35 | MHC.EDTECH ---
Pt was assisted with Lunch. Pt ate 50% of the meal with 360cc's of oral intake. Pt was incontinent of urine. He was provided osmany care, w total assistance x2. Pt was repositioned and tolerated activity well.
[2022-11-16] MEDS: cefTRIAXone sodium 1 GM in 0.9 % Sodium Chloride 50 ML IV (14:57)
[2022-11-16 15:26] VITALS: BP 122/63; PULSE 112; RESP 19; TEMP 36.2; O2SAT 96
[2022-11-16] MEDS: Enoxaparin Sodium 40 MG/0.4 ML SYRINGE SUBCUT (16:20)
[2022-11-16] MEDS: Atorvastatin Calcium 20 MG TABLET PO (20:51)
[2022-11-17 04:00] VITALS: BP 123/59; PULSE 107; RESP 17; TEMP 36.1; O2SAT 94
[2022-11-17] MEDS: Levothyroxine Sodium 100 MCG TABLET PO (05:40)
[2022-11-17] MEDS: 0.9 % Sodium Chloride 1,000 ML 100 ML IVCONT (06:11)
[2022-11-17 07:36] VITALS: BP 159/87; PULSE 98; RESP 16; TEMP 36.2; O2SAT 98
[2022-11-17] MEDS: Gabapentin 100 MG CAPSULE PO ×2 (10:18→20:10)
[2022-11-17] MEDS: Aspirin 81 MG TAB.CHEW PO (10:18)
[2022-11-17] MEDS: Omeprazole 20 MG CAPSULE.DR PO ×2 (10:19→15:13)
[2022-11-17] MEDS: Finasteride 5 MG TABLET PO (10:19)
[2022-11-17] MEDS: Lactulose 20 GM/30 ML SOLUTION PO ×2 (10:19→20:11)
[2022-11-17] MEDS: levETIRAcetam Oral Soln 500 MG/5 ML PO ×2 (10:19→20:10)
[2022-11-17] MEDS: 0.9 % Sodium Chloride Flush 3 ML SYRINGE IVFLUSH (10:20)
[2022-11-17] MEDS: Sennosides/Docusate Sodium TABLET 2 TAB PO ×2 (10:20→20:10)
[2022-11-17] MEDS: Metoclopramide HCl 10 MG TABLET PO ×2 (10:20→15:13)
[2022-11-17] MEDS: Multivitamin TABLET 1 TAB PO (10:22)
--- NOTE | 2022-11-17 11:39 | P.PNIM_ITS ---
Subjective Subjective Date of Service: 11/17/22 Interval History: minimally verbal Review of Systems Review of Systems: Yes Unobtainable due to mental status Physical Exam Vital Signs: Vital Signs: Last Vital Signs Temp 97.2 F 11/17/22 07:36 Pulse 98 11/17/22 07:36 Resp 16 11/17/22 07:36 BP 159/87 H 11/17/22 07:36 Pulse Ox 98 11/17/22 07:36 O2 Del Method 11/17/22 07:36 O2 Flow Rate 2 11/17/22 07:36 BMI result Body Mass Index 17.4 Const: Other: Gen: in no acute distress, not speaking in coherent sentences HEENT: sclera anicteric, moist mucus membranes, edentulous Neck: supple Lungs: clear bilaterally Heart: regular, no murmurs Abd: soft, non-tender, non-distended Ext: no edema Skin: warm/well-perfused Neuro: alert, unable to assess orientation, follows commands and moves all 4 extremities Psych: impaired insight Objective Data Active Medications Acetaminophen (Acetaminophen 325 Mg Tablet) 650 mg PO Q6H PRN PRN Reason: Pain, Mild (Pain Scale 1-3) Aspirin (Aspirin 81 Mg Tab.Chew) 81 mg PO DAILY [facility] Last Admin: 11/17/22 10:18 Dose: 81 mg Documented By: JUSTO Atorvastatin Calcium (Atorvastatin Calcium 20 Mg Tablet) 20 mg PO BEDTIME [facility] Last Admin: 11/16/22 20:51 Dose: 20 mg Documented By: CASTILStanton Bisacodyl (Bisacodyl 10 Mg Supp.Rect) 10 mg KS DAILY PRN PRN Reason: Constipation Enoxaparin Sodium (Enoxaparin Sodium 40 Mg/0.4 Ml Syringe) 40 mg SUBCUT Q24H [facility] Last Admin: 11/16/22 16:20 Dose: 40 mg Documented By: CARLOS Finasteride (Finasteride 5 Mg Tablet) 5 mg PO DAILY [facility] Last Admin: 11/17/22 10:19 Dose: 5 mg Documented By: JUSTO Gabapentin (Gabapentin 100 Mg Capsule) 100 mg PO BID [facility] Last Admin: 11/17/22 10:18 Dose: 100 mg Documented By: JUSTO Haloperidol Decanoate (Haloperidol Decanoate 50 Mg/Ml Ampul) 10 mg IM Q14D [facility] Last Admin: 11/16/22 11:00 Dose: 10 mg Documented By: GI Ceftriaxone Sodium 1 gm/ (Sodium Chloride) 50 mls @ 100 mls/hr IV Q24H [facility] Last Infusion: 11/16/22 15:35 Dose: 0 mls/hr Documented By: CARLOS Sodium Chloride (Ns) 1,000 mls @ 100 mls/hr IVCONT .Q10H [facility] Last Admin: 11/17/22 06:11 Dose: 100 mls/hr Documented By: ESVIN Lactulose (Lactulose 20 Gm/30 Ml Solution) 20 gm PO BID [facility] Last Admin: 11/17/22 10:19 Dose: 20 gm Documented By: JUSTO Levetiracetam (Levetiracetam Oral Soln 500 Mg/5 Ml) 500 mg PO BID [facility] Last Admin: 11/17/22 10:19 Dose: 500 mg Documented By: JUSTO Levothyroxine Sodium (Levothyroxine Sodium 100 Mcg Tablet) 100 mcg PO DAILY@0600 [facility] Last Admin: 11/17/22 05:40 Dose: 100 mcg Documented By: ESVIN Metoclopramide HCl (Metoclopramide Hcl 10 Mg Tablet) 10 mg PO BIDAC [facility] Last Admin: 11/17/22 10:20 Dose: 10 mg Documented By: JUSTO Multivitamins/Vitamin C (Multivitamin Tablet) 1 tab PO DAILY [facility] Last Admin: 11/17/22 10:22 Dose: 1 tab Documented By: JUSTO Omeprazole (Omeprazole 20 Mg Capsule.Dr) 20 mg PO BIDAC [facility] Last Admin: 11/17/22 10:19 Dose: 20 mg Documented By: JUSTO Ondansetron HCl (Ondansetron Hcl 4 Mg/2 Ml Vial) 4 mg IVPUSH Q8H PRN PRN Reason: Nausea and Vomiting Pharmacy Consult (Consult Rx Perform Med Rec) 1 each MISCELLANE ONCE PRN PRN Reason: Consult order Senna (Sennosides 8.6 Mg Tablet) 8.6 mg PO DAILY PRN PRN Reason: Constipation Senna/Docusate Sodium (Sennosides/Docusate Sodium Tablet) 2 tab PO BID [facility] Last Admin: 11/17/22 10:20 Dose: 2 tab Documented By: JUSTO Sodium Chloride (0.9 % Sodium Chloride Flush 3 Ml Syringe) 3 ml IVFLUSH QSHIFT [facility] Last Admin: 11/17/22 10:20 Dose: 3 ml Documented By: JUSTO Tramadol HCl (Tramadol Hcl 50 Mg Tablet) 50 mg PO Q8H PRN PRN Reason: Pain (Scale Score 4-6) Labs 11/16/22 07:03 11/16/22 07:03 Microbiology Microbiology Results: Microbiology 11/15/22 11:34 Blood Culture - Preliminary Blood - Venous No growth after 24 hours. 11/15/22 11:33 Blood Culture - Preliminary Blood - Venous No growth after 24 hours. 11/15/22 Unknown Urine Culture - Final Urine clean catch - Urine hooks top Assessment and Plan (1) Acute hypernatremia: Status: Acute Plan hospital d3 82yo M resident of [facility] presented with confusion + hypothermia, admitted for sepsis due to UTI # sepsis due to UTI - ceftriaxone 11/15-, UCx contam # ?constipation - KUB # hyperNa - encourage free H20 intake, recheck BMP # hypotension - resolved, now hypertensive, resume propranolol # GERD - continue PPI # seizure disorder NOS - continue levetiracetam # hypothyroid - continue LT4 #?schizophrenia - continue haloperidol decanoate, chlorpromazine # BPH - resume tamsulosin # hx AF - not on AC due to risk of bleeding # VTE ppx: LMWH # dispo: anticipate return to [facility] in next few d In my clinical judgment, the patient requires continued inpatient hospitalization for the following reasons: hyperNa Time Spent With Patient Time: Total time managing care of this patient today _35___ minutes. Quality Stroke Does the patient have a stroke diagnosis?: No VTE Prior VTE?: No VTE Risk Level:: Medical - moderate - high VTE Device Contraindication: Treatment Not Indicated VTE Drug Contraindication: N/A - Med Ordered
--- NOTE | 2022-11-17 12:07 | P.CDIC_ITS ---
CDI Concurrent Query Documentation Clarification: PHYSICIAN'S DOCUMENTATION REQUEST Date of Query: 11/17/22 1208 Patient Name: Juan Sanders Admit Date: 11/15/22 Dear Doctor, A review of the medical record indicates additional documentation may be needed. Please review below and update the documentation accordingly. Clinical Indicators: Risk Factors/Clinical Indicators/Treatments Ed: 11/15 - Patient yelling out and agitated, yells when touched, altered mental status, impaired insight. If possible, please further clarify specifics of the Dementia and any associated manifestations: Dementia, Vascular, Alzheimer's, Senile, Pre-senile etc. * Dementia without behavioral disturbance * Dementia with behavioral disturbance * Aggressive behavior * Combative behavior * Other ? please specify * Unable to determine Use of terms such as suspected, likely, concern for, or probable (associated with a specific diagnosis that is being evaluated, monitored, or treated as if it exists) are acceptable and can be coded in the inpatient setting, when documented at the time of discharge. Thank you, Sarah Sandra [facility], CDIS Extension: [phone] Please use your independent medical judgment in providing your response. THIS QUERY IS PART OF THE PERMANENT MEDICAL RECORD Provider Response: Other Other Diagnosis: UTD
[2022-11-17 13:42] VITALS: BMI 17.4
--- NOTE | 2022-11-17 15:12 | MHC.CM.PN ---
EMR REVIEWED, PER HOSPITALIST ANTIC PT MAY BE CLEARED FOR D/C BACK TO [facility] TOMORROW, SNF UPDATED W/CLINICALS [facility]IA [facility], CM WILL CONT TO FOLLOW.
[2022-11-17] MEDS: Propranolol HCL 20 MG TABLET PO ×2 (15:13→20:10)
[2022-11-17] MEDS: cefTRIAXone sodium 1 GM in 0.9 % Sodium Chloride 50 ML IV (15:22)
--- NOTE | 2022-11-17 15:27 | MHC.CLN ---
NUTRITION DIET=2 GRAM SODIUM. ADDING ENSURE BID TO PROVIDE ADDITIONAL 700 KCALS, 40 G PROTEIN TO INCREASE CALORIC INTAKE AND PROMOTE WOUND HEALING. SIGNIFICANT WEIGHT LOSS X 6 MONTHS, -24%. DIET=2 GRAM SODIUM. PATIENT IS 1:1 FEED. INTAKE APPEARS GOOD, WITH MEALS 100% X 2. QUALIFIES MODERATE, NON SEVERE, MALNUTRITION IN THE CONTEXT OF CHRONIC ILLNESS. SEE CLINICAL NUTRITION ASSESSMENT 11/17/22.
[2022-11-17] MEDS: Tamsulosin HCL 0.4 MG CAPSULE PO (20:10)
[2022-11-17] MEDS: Atorvastatin Calcium 20 MG TABLET PO (20:10)
[2022-11-17] MEDS: chlorproMAZINE HCl 25 MG TABLET 50 MG PO (20:10)
[2022-11-18 03:30] VITALS: BP 135/71; PULSE 86; RESP 19; TEMP 36.3; O2SAT 93
[2022-11-18] MEDS: Levothyroxine Sodium 100 MCG TABLET PO (05:35)
[2022-11-18 06:08] LABS: Hematocrit 32.8 % (42.0-52.0); Hemoglobin 10.1 g/dl (14.0-18.0); Mean Corpuscular HGB Conc 30.8 g/dl (31.0-36.0); Mean Corpuscular Hemoglobin 26.4 pg (27.0-33.0); Mean Corpuscular Volume 85.6 fL (80.0-98.0); Mean Platelet Volume 9.4 fL (9.4-12.4); Platelet Count 357 X10*3/uL (160-400); Red Blood Count 3.83 X10*6/uL (4.60-5.80); Red Cell Distribution Width 17.1 % (11.0-16.0); White Blood Count 7.4 X10*3/uL (4.8-10.8)
[2022-11-18 06:23] LABS: Anion Gap 11 (12-20); Blood Urea Nitrogen 13 mg/dL (9-16); Calcium 8.2 mg/dL (8.4-10.2); Carbon Dioxide 23 mmol/L (22-29); Chloride 113 mmol/L (96-108); Creatinine Clr Calc Pharmacy 53.6; Estimated Glomerular Filt Rate > 60; Glucose Random 69 mg/dL (60-115); Potassium 4.2 mmol/L (3.3-5.1); Sodium 143 mmol/L (135-145)
[2022-11-18 07:33] VITALS: BP 153/78; PULSE 88; RESP 18; TEMP 36.1; O2SAT 96
[2022-11-18] MEDS: Metoclopramide HCl 10 MG TABLET PO (07:38)
[2022-11-18] MEDS: chlorproMAZINE HCl 25 MG TABLET 50 MG PO (07:38)
[2022-11-18] MEDS: Finasteride 5 MG TABLET PO (07:38)
[2022-11-18] MEDS: Gabapentin 100 MG CAPSULE PO (07:39)
[2022-11-18] MEDS: Omeprazole 20 MG CAPSULE.DR PO (07:39)
[2022-11-18] MEDS: Sennosides/Docusate Sodium TABLET 2 TAB PO (07:40)
[2022-11-18] MEDS: Propranolol HCL 20 MG TABLET PO (07:40)
[2022-11-18] MEDS: Aspirin 81 MG TAB.CHEW PO (07:40)
[2022-11-18] MEDS: Lactulose 20 GM/30 ML SOLUTION PO (07:41)
[2022-11-18] MEDS: levETIRAcetam Oral Soln 500 MG/5 ML PO (07:41)
[2022-11-18] MEDS: 0.9 % Sodium Chloride Flush 3 ML SYRINGE IVFLUSH (07:41)
[2022-11-18] MEDS: Multivitamin TABLET 1 TAB PO (07:41)
--- NOTE | 2022-11-18 08:22 | P.CDIC_ITS ---
CDI Concurrent Query Documentation Clarification: PHYSICIAN'S DOCUMENTATION REQUEST Date of Query: 11/18/22 0823 Patient Name: Juan Sanders Admit Date: 11/15/22 Dear Doctor, A review of the medical record indicates additional documentation may be needed. Please review below and update the documentation accordingly. Clinical Indicators: Documentation includes the diagnosis of malnutrition. Additional clinical indicators from the record include: Risk Factors/Clinical Indicators/Treatments PN 11/16 Addendum - protein calorie malnutrition Nutrition notes 11/17 - Significant weight loss x 6 months, -24% mild depletion orbital, clavicle, dorsal hand, mild depletion muscle mass and body fat. BMI 17.5 Add Ensure BID to provide additional KCALS. Qualifies as moderate, non-severe malnutrition in the context of chronic illness. ASPEN Criteria* Acute Illness Chronic Illness Clinical Characteristic Non-Severe (2 or more criteria present) Severe (2 or more criteria present) Non-Severe (2 or more criteria present) Severe (2 or more criteria present) Energy Intake <75% for >7 days <=50% for >=5 days <75% for >=1 month <=75% for >=1 month Weight Loss 1 week 1 ? 2% >2% N/A N/A 1 month 5% >5% 5% >5% 3 months 7.5 % >7.5% 7.5% >7.5% 6 months N/A N/A 10% >10% 1 year N/A N/A 20% >20% Body Fat Mild Moderate Mild Severe Muscle Mass Mild Moderate Mild Severe Fluid Accumulation Mild Moderate to Severe Mild Severe Reduced Medical Imaging Specialist Strength N/A Measurably Reduced N/A Measurably Reduced *[facility] Hospitalist, 2017 If possible, please provide in your progress notes, additional specificity regarding the severity of the malnutrition using the above information: Specifics: * Mild * Moderate * Severe * Other (please specify) * Unable to determine Use of terms such as suspected, likely, concern for, or probable (associated with a specific diagnosis that is being evaluated, monitored, or treated as if it exists) are acceptable and can be coded in the inpatient setting, when documented at the time of discharge. Thank you, Sarah Sandra [facility], CDIS Extension: [phone] Please use your independent medical judgment in providing your response. THIS QUERY IS PART OF THE PERMANENT MEDICAL RECORD Provider Response: Moderate Protein-Calorie Malnutrition
[2022-11-18] MEDS: polyethylene glycoL 3350 17 GM POWD.PACK PO (08:23)
[2022-11-18 09:07] LABS: COVID-19 Test Negative (Negative); IDNOW Serial# BCCEAD1C
--- NOTE | 2022-11-18 10:46 | MHC.CM.PN ---
PT MEDICALLY CLEARED FOR D/C BACK TO [facility], PT'S GUARDIAN SHANEKA MORE [phone] NOTIFIED AT 10:13AM AND AGREEABLE TO [facility] FOR TRANSPORT AT 1PM.
--- NOTE | 2022-11-18 11:24 | P.DS_ITS ---
DS: Providers Provider Date of Service: 11/18/22 Date of admission: 11/15/22 15:51 Primary care physician: Norris Muñoz DO DS: Diagnosis Discharge Diagnosis (1) Acute hypernatremia: Status: Acute (2) Acute dehydration: Status: Acute (3) Hypothermia: Status: Acute (4) Acute UTI: Status: Acute (5) Sepsis: Status: Acute (6) Moderate protein-calorie malnutrition: Status: Acute DS: Summary Hospital Course Hospital Course: from admission H+P on 11/15/22 by hospitalist PITCHING COACH Ember David: 82-year-old man presenting from [facility] with increased lethargy, hypotension and hypothermia.? Patient has presented with similar symptoms in the past and has usually been caused by infectious source.? Unfortunately the patient is unable to give any accurate information and he is unaccompanied.? Temperature was 92.1 degrees, Miguel Hugger placed with good effect.? Hypotension resolved.? No lactic acid are leukocytosis noted urinalysis positive.? He was started on IV Rocephin.? He will be admitted for further management and treatment of sepsis secondary to UTI.? This 82yo M resident of [facility] presented with confusion + hypothermia and was admitted for sepsis due to UTI. He improved with IV ceftriaxone x 3 days. Urine culture was contaminated. Hypernatremia resolved with free water intake. Hypotension resolved and he was placed back on propranolol. He was discharged back to [facility] to complete 4 days of PO cefuroxime. He was started on Ensure supplementation for moderate protein-calorie malnutrition. Time Spent with Patient Time attestation: Total time managing care of this patient today __35__ minutes. Discharge coordination time: Greater than 30 minutes Quality: Safe Use of Opioids Does Pt have an Active Cancer Diagnosis on the Problem List?: No Quality: Stroke Does the patient have a stroke diagnosis?: No Physical Exam Vital Signs: Vital Signs: Last Vital Signs Temp 97.0 F 11/18/22 07:33 Pulse 88 11/18/22 07:33 Resp 18 11/18/22 07:33 BP 153/78 H 11/18/22 07:33 Pulse Ox 96 11/18/22 07:33 O2 Del Method 11/18/22 07:33 O2 Flow Rate 2 11/18/22 07:33 BMI result Body Mass Index 17.4 Const: Other: Gen: in no acute distress, not speaking in coherent sentences HEENT: sclera anicteric, moist mucus membranes, edentulous Neck: supple Lungs: clear bilaterally Heart: regular, no murmurs Abd: soft, non-tender, non-distended Ext: no edema Skin: warm/well-perfused Neuro: alert, unable to assess orientation, follows commands and moves all 4 extremities Psych: impaired insight DS: Data Data Completed and Pending Completed studies during hospitalization [Text1]: Laboratory Results WBC 7.4 X10*3/uL (4.8-10.8) 11/18/22 05:33 RBC 3.83 X10*6/uL (4.60-5.80) L 11/18/22 05:33 Hgb 10.1 g/dl (14.0-18.0) L 11/18/22 05:33 Hct 32.8 % (42.0-52.0) L 11/18/22 05:33 MCV 85.6 fL (80.0-98.0) 11/18/22 05:33 MCH 26.4 pg (27.0-33.0) L 11/18/22 05:33 MCHC 30.8 g/dl (31.0-36.0) L 11/18/22 05:33 RDW 17.1 % (11.0-16.0) H 11/18/22 05:33 Plt Count 357 X10*3/uL (160-400) 11/18/22 05:33 MPV 9.4 fL (9.4-12.4) 11/18/22 05:33 Immature Gran % (Auto) 1.1 % (0.0-0.4) H 11/16/22 07:03 Neut % (Auto) 62.2 % (45-73) 11/16/22 07:03 Lymph % (Auto) 18.7 % (20-40) L 11/16/22 07:03 Steele % (Auto) 8.1 % (2-11) 11/16/22 07:03 Eos % (Auto) 9.3 % (0-4) H 11/16/22 07:03 Baso % (Auto) 0.6 % (0-2) 11/16/22 07:03 Lymph # (Auto) 1.2 X10*3/uL (1.2-4.9) 11/16/22 07:03 Steele # (Auto) 0.5 X10*3/uL (0.1-1.2) 11/16/22 07:03 Eos # (Auto) 0.6 X10*3/uL (0.0-0.4) H 11/16/22 07:03 Baso # (Auto) 0.0 X10*3/uL (0.0-0.2) 11/16/22 07:03 Abs Immat Gran (auto) 0.07 X10*3/uL (0.00-0.03) H 11/16/22 07:03 Absolute Neuts (auto) 4.1 x10*3/uL (2.0-8.3) 11/16/22 07:03 Absolute Nucleated RBC 0.000 X10*3/uL (0.0-0.012) 11/18/22 05:33 Nucleated RBC % (auto) 0.0 /100WBC (0.0-0.2) 11/18/22 05:33 PT 13.7 SEC (10.0-13.1) H 11/15/22 11:34 INR 1.2 (0.9-1.1) H 11/15/22 11:34 VBG pH 7.43 (7.32-7.43) 11/15/22 11:35 VBG pCO2 45 mmHg 11/15/22 11:35 VBG pO2 47 mmHg 11/15/22 11:35 VBG HCO3 30 mmol/L (22-26) H 11/15/22 11:35 VBG O2 Saturation 69.0 % 11/15/22 11:35 VBG Base Excess 5.5 mmol/L 11/15/22 11:35 Sodium 143 mmol/L (135-145) 11/18/22 05:33 Potassium 4.2 mmol/L (3.3-5.1) 11/18/22 05:33 Chloride 113 mmol/L (96-108) H 11/18/22 05:33 Carbon Dioxide 23 mmol/L (22-29) 11/18/22 05:33 Anion Gap 11 (12-20) L 11/18/22 05:33 BUN 13 mg/dL (9-16) 11/18/22 05:33 Creatinine 0.69 mg/dL (0.5-1.4) 11/18/22 05:33 Estim Creat Clear Calc 53.6 11/18/22 05:33 Estimated GFR > 60 11/18/22 05:33 Random Glucose 69 mg/dL (60-115) 11/18/22 05:33 Lactic Acid 1.4 mmol/L (0.5-2.0) 11/15/22 11:34 Calcium 8.2 mg/dL (8.4-10.2) L 11/18/22 05:33 Magnesium 2.1 mg/dL (1.6-2.6) 11/15/22 11:34 Total Bilirubin 0.4 mg/dL (0.0-1.0) 11/15/22 11:34 Direct Bilirubin < 0.2 mg/dL (0.0-0.5) 11/15/22 11:34 AST 29 U/L (5-37) 11/15/22 11:34 ALT 45 U/L (0-40) H 11/15/22 11:34 Alkaline Phosphatase 117 U/L (39-117) 11/15/22 11:34 Ammonia 31 umol/L (13-55) 11/15/22 15:29 Total Creatine Kinase 67 U/L (38-174) 11/15/22 11:34 Troponin I High Sens < 3.5 ng/L (<3.5-35.0) 11/15/22 11:34 C-Reactive Protein 14.80 mg/dL (< or = 0.50) H 11/15/22 11:34 Total Protein 6.0 g/dL (6.5-8.0) L 11/15/22 11:34 Albumin 2.9 g/dL (3.5-5.0) L 11/15/22 11:34 Lipase 7 U/L (8-78) L 11/15/22 11:34 TSH 0.61 uIU/mL (0.32-4.0) 11/15/22 11:33 Urine Color Yellow 11/15/22 13:33 Urine Appearance Clear 11/15/22 13:33 Urine pH 6.5 (5.0-9.0) 11/15/22 13:33 Ur Specific Haw[place]orne 1.025 (1.005-1.025) 11/15/22 13:33 Urine Protein Trace mg/dL (Neg-Trace) 11/15/22 13:33 Urine Glucose (UA) Negative mg/dL (Negative) 11/15/22 13:33 Urine Ketones Negative mg/dL (Negative) 11/15/22 13:33 Urine Blood Negative (Negative) 11/15/22 13:33 Urine Nitrite Positive (Negative) H 11/15/22 13:33 Ur Leukocyte Esterase Small (1+) (Negative) H 11/15/22 13:33 Urine RBC 0-2 /HPF (0-2) 11/15/22 13:33 Urine WBC 6-10 /HPF (0-5) 11/15/22 13:33 Ur Squamous Epith Cells 0-2 /HPF (0-2) 11/15/22 13:33 Urine Bacteria 1+ (None Seen) 11/15/22 13:33 Hyaline Casts 0-2 /LPF (0-2) 11/15/22 13:33 COVID-19 (COOPER) Negative (Negative) 11/18/22 08:19 COVID-19 Clin Com See Note 11/18/22 08:19 Impressions Chest X-Ray 11/15/22 12:05 IMPRESSION: Low lung volumes. No airspace consolidation, vascular congestion, or effusion. Head CT 11/15/22 12:09 IMPRESSION: No substantial change from prior imaging. There is asymmetric cortical encephalomalacia involving the right occipital lobe and numerous chronic small vessel ischemic changes throughout the periventricular white matter. No evidence of acute territorial infarct or hemorrhage. Discharge Plan Discharge Anticipated Discharge Date/Time: 11/18/22 11:25 Patient Disposition: [facility] Discharge Diagnosis: sepsis due to UTI, hypernatremia, moderate malnutrition Referrals: [facility] [Outside] - 1 Day (RESUMPTION OF CARE) Norris Muñoz DO [Primary Care Provider] - 1 Week Discharge Medications: New polyethylene glycol 3350 17 gram Powder In Packet 17 g PO DAILY Qty: 30 0RF cefuroxime axetil 500 mg tablet 500 mg PO BID Qty: 8 0RF Continued levothyroxine 100 mcg tablet 1 tab PO DAILY@0630 acetaminophen 325 mg Tablet 650 mg PO Q4H PRN (Reason: PAIN/TEMP) atorvastatin 20 mg Tablet 20 mg PO BEDTIME bisacodyl 10 mg Suppository 10 mg [place] DAILY PRN (Reason: Constipation) chlorpromazine 25 mg Tablet 50 mg PO BID Rx Instructions: TAKE TOGETHER WITH 50 MG DOSE FOR TOTAL DOSE OF 75 MG BID gabapentin 100 mg Capsule 100 mg PO BID haloperidol decanoate [Haldol Decanoate] 50 mg/mL Solution 10 mg IM Q14D lactulose 10 gram/15 mL Solution 20 g PO BID esomeprazole magnesium [Nexium] 40 mg Capsule,Delayed Release(Dr/Ec) 40 mg PO BIDAC multivitamin Tablet 1 tab PO DAILY propranolol 20 mg Tablet 20 mg PO TID sennosides [senna] 8.6 mg Tablet 8.6 mg PO DAILY PRN (Reason: Constipation) sennosides-docusate sodium [Senna Plus] 8.6-50 mg Tablet 2 tab-cap PO BID tamsulosin 0.4 mg Capsule 0.4 mg PO DAILY@1900 tramadol 50 mg Tablet 50 mg PO Q8H PRN (Reason: Pain (Scale Score 4-6)) Rx Instructions: GIVE 8 HOURS APART FROM SCHEDULED DOSE aspirin 81 mg Tablet,Chewable 81 mg PO DAILY Qty: 30 0RF metoclopramide HCl 10 mg Tablet 10 mg PO BIDAC levetiracetam 100 mg/mL Solution 500 mg PO BID arginine (L-arginine) 500 mg Powder In Packet 500 mg PO DAILY acidophilus-pectin, citrus 100 million cell-10 mg Capsule 1 cap PO DAILY finasteride 5 mg tablet 5 mg PO DAILY 90 Days Qty: 90 3RF Discharge Orders: Discharge Order (Routine); Ordered 11/18/22 Ordered By: Jackie Reynaga Diet: Advance to usual diet Activity on Discharge: As tolerated Stand Alone Forms: Patient Portal Discharge page Care Plan Goals: treat UTI Health Concerns: sepsis due to UTI, hypernatremia, malnutrition Plan of Treatment: take cefuroxime 500 mg twice daily x 4 days constipation: MiraLax take Ensure 1 can bid Assessment: See Discharge Summary.
== END 2022-11-18 14:10 | disposition skilled nursing facility (03) | DRG 872 ==
LOC: HO.ED 13:20 → HO.EDOVER 16:03 → HO.S3 11-16 14:03
PROVIDERS: Admitting Provider Nurse Practitioner Acute Care; Emergency Provider Emergency Medicine; PCP Hospitalist; Visit Provider Family Medicine
DX: A41.9 Sepsis, unspecified organism (principal); N39.0 Urinary tract infection, site not specified; E87.0 Hyperosmolality and hypernatremia; E44.0 Moderate protein-calorie malnutrition; Z68.1 Body mass index [BMI] 19.9 or less, adult; E86.0 Dehydration; I95.9 Hypotension, unspecified; G40.909 Epilepsy, unspecified, not intractable, without status epilepticus; E03.9 Hypothyroidism, unspecified; N40.0 Benign prostatic hyperplasia without lower urinary tract symptoms; I48.91 Unspecified atrial fibrillation; K59.00 Constipation, unspecified; F20.9 Schizophrenia, unspecified; F03.90 Unspecified dementia, unspecified severity, without behavioral disturbance, psychotic disturbance, mood disturbance, and anxiety; R68.0 Hypothermia, not associated with low environmental temperature; Z20.822 Contact with and (suspected) exposure to COVID-19; Z79.82 Long term (current) use of aspirin; Z79.890 Hormone replacement therapy; Z79.899 Other long term (current) drug therapy
CPT/HCPCS: 36415; 70450; 71045; 71260; 80048; 80076; 81001; 82140; 82550; 82803; 83605; 83690; 83735; 84443; 84484; 85025; 85027; 85610; 86140; 87040; 87086; 87635; 93005; 99285; J0696; J1650; Q9967

== ENCOUNTER 2022-12-20 19:10 | Inpatient (IN) | payer MEDICARE, MEDICAID, SELFPAY ==
[2022-12-20 19:22] VITALS: BP 144/76; PULSE 81; O2SAT 95; BMI 18.8
[2022-12-20 19:45] VITALS: BP 141/84; PULSE 115; RESP 18; TEMP 36.9; O2SAT 97
--- NOTE | 2022-12-20 20:57 | ED_ITS ---
HPI - Male Genitourinary General Chief complaint: Urogenital-Male Stated complaint: blood in urine Time Seen by Provider: 12/20/22 20:57 Source: patient Mode of arrival: EMS Limitations: altered mental status (Dementia) History of Present Illness HPI Narrative: 82-year-old male sent to the emergency department from his nursing facility [facility] [place] for hematuria. Transfer note was reviewed by me. The foll owing was obtained ?resident was being changed when brief a saturated in blood. Nurse wiped and noticed blood was coming out from penis. Blood clots noted. The patient is agitated and has unspecified dementia disorder and cannot give a history. He is agitated and will not let the nurses approached him, he strikes out at them. Related Data Home Medications Medication Instructions Recorded Confirmed acetaminophen 325 mg tablet 650 mg PO Q4H PRN PAIN/TEMP 12/30/21 11/15/22 atorvastatin 20 mg tablet 20 mg PO BEDTIME 12/30/21 11/15/22 bisacodyl 10 mg rectal suppository 10 mg TX DAILY PRN Constipation 12/30/21 11/15/22 chlorpromazine 25 mg tablet 50 mg PO BID 12/30/21 11/15/22 esomeprazole magnesium 40 mg 40 mg PO BIDAC 12/30/21 11/15/22 capsule,delayed release (Nexium) gabapentin 100 mg capsule 100 mg PO BID 12/30/21 11/15/22 haloperidol decanoate 50 mg/mL 10 mg IM Q14D 12/30/21 11/15/22 intramuscular solution (Haldol Decanoate) lactulose 10 gram/15 mL oral 20 g PO BID 12/30/21 11/15/22 solution multivitamin 1 tab PO DAILY 12/30/21 11/15/22 propranolol 20 mg tablet 20 mg PO TID 12/30/21 11/15/22 sennosides 8.6 mg tablet (senna) 8.6 mg PO DAILY PRN Constipation 12/30/21 11/15/22 sennosides 8.6 mg-docusate sodium 2 tab-cap PO BID 12/30/21 11/15/22 50 mg tablet (Senna Plus) tamsulosin 0.4 mg capsule 0.4 mg PO DAILY@1900 12/30/21 11/15/22 tramadol 50 mg tablet 50 mg PO Q8H PRN Pain (Scale Score 12/30/21 11/15/22 4-6) metoclopramide HCl 10 mg tablet 10 mg PO BIDAC 02/06/22 11/15/22 levetiracetam 100 mg/mL oral 500 mg PO BID 02/13/22 11/15/22 solution levothyroxine 100 mcg tablet 1 tab PO DAILY@0630 05/15/22 11/15/22 acidophilus 100 million 1 cap PO DAILY 11/15/22 11/15/22 cell-pectin, citrus 10 mg capsule arginine (L-arginine) 500 mg oral 500 mg PO DAILY 11/15/22 11/15/22 powder packet Previous Rx's Medication Instructions Recorded aspirin 81 mg chewable tablet 81 mg PO DAILY #30 tabs 01/04/22 finasteride 5 mg tablet 5 mg PO DAILY 90 days #90 tabs 07/30/22 cefuroxime axetil 500 mg tablet 500 mg PO BID #8 tabs 11/18/22 polyethylene glycol 3350 17 gram 17 g PO DAILY #30 ea 11/18/22 oral powder packet Allergies Allergy/AdvReac Type Severity Reaction Status Date / Time No Known Allergies Allergy Unverified 06/19/20 17:10 [No Known Allergies*] Review of Systems Review of Systems: Yes Unobtainable due to mental condition (Dementia) [facility] Past Medical History [facility] Narrative: Social history: Patient lives in a long-term care facility. Medical History Atrial fibrillation COPD (chronic obstructive pulmonary disease) Dementia Malignant neoplasm of prostate Occipital infarction Prostate cancer Schizophrenia Family History Family History Other Family history unknown Social History Social History Household Members: None Housing: Assisted Living Facility Do you presently have visiting nurse or other home services: No Unable to assess alcohol history related to: Unable to respond and Refusing to respond Alcohol intake: unknown Patient Tobacco Use Status: Tobacco use Unknown Advance Directives: Yes Advance Directives on File: Yes Advance Directives Date on File: 05/18/22 service: No Current occupational status: disabled Physical Exam Vital Signs: Vital Signs: Last Vital Signs Temp 98.7 F 12/21/22 02:04 Pulse 114 H 12/21/22 03:13 Resp 16 12/21/22 03:13 BP 141/84 H 12/21/22 03:13 Pulse Ox 99 12/21/22 03:13 O2 Del Method 12/21/22 03:13 BMI result Body Mass Index 18.8 Const: Other: Very thin, elderly male, combative, strikes out at me whenever I try to approach him. HEENT: Head: Yes normal to inspection, Yes normocephalic and Yes atraumatic Ears: external ears normal General nose exam: Normal external nose present Face and sinus: Yes normal facial exam Mouth: Normal oral and palatal mucosa present Throat: Yes posterior oropharynx normal Eyes: General: appearance normal, both eyes and all related structures Neck: Neck: Yes normal visual inspection, Yes no lymphadenopathy, Yes trachea midline and Yes supple Chest: Chest palpation & inspection: normal inspection of the chest and normal palpation of entire chest wall Resp: Effort & Inspection: normal respiratory effort and able to speak in complete sentences Auscultation: clear to auscultation bilaterally Cardio: Rate: regular rate Rhythm: regular rhythm Heart sounds: S1 normal heart sound present, S2 normal heart sound present and no murmurs GI: Inspection: Yes normal to inspection Palpation (GI): Soft to palpation, nontender and no guarding Auscultation: normal bowel sounds : General: Yes no CVA tenderness Back/Spine/Pelvis: Back: no CVA tenderness Skin: Other: Multiple bruises on his arms and legs Neuro: Other: Moves all extremities normally Extrem: General: Yes normal to inspection Medications Administered Discontinued Medications Generic Name Dose Route Start Last Admin Trade Name Maria D PRN Reason Stop Dose Admin Diphenhydramine HCl 25 mg 12/20/22 21:02 12/20/22 21:12 Diphenhydramine Hcl 50 Mg/Ml Vial IM 12/20/22 21:03 25 mg ONCE STA Administration Haloperidol Lactate 10 mg 12/20/22 21:02 12/20/22 21:11 Haloperidol Lactate 5 Mg/Ml Vial IM 12/20/22 21:03 10 mg STAT STA Administration Haloperidol Lactate 10 mg 12/20/22 22:24 12/20/22 22:37 Haloperidol Lactate 5 Mg/Ml Vial IM 12/20/22 22:25 10 mg STAT STA Administration Ceftriaxone Sodium 1 gm/ 50 mls @ 100 mls/hr 12/21/22 02:39 12/21/22 03:20 Sodium Chloride IV 12/21/22 03:08 100 mls/hr ONCE ONE Administration Medical Decision Making Medical Decision Making [facility] Narrative: 82-year-old male who presents emergency department for evaluation of hematuria with blood clots noted coming from his penis according to nursing staff at his long-term care facility. The patient is combative secondary to his dementia therefore I ordered Haldol 10 mg IM and Benadryl 25 mg IM in order to do a medical workup on him. I did order a CBC, CMP, PT/INR, PTT, urinalysis, Luevano catheter placement. 0244: Laboratory evaluation interpretation: Anemia with an H&H of 10.7 and 34.7. Elevated potassium 5.2. Elevated alk-phos of 132. Urinalysis was positive for leukocytes esterase and nitrates. Microscopic revealed 0-2 RBCs 6- 10 WBCs and 1+ bacteria. COVID-19 influenza were negative. The patient required a 2nd dose of Haldol 10 mg IM and Benadryl 25 mg IM in order to complete his workup. A [address] way Luevano catheter was placed by nursing and the patient did have dark red bloody urine. Patient was ordered to get continue bladder irrigation. Given his positive urine, the patient was treated with ceftriaxone 1 g IV. I will discuss admission with the covering hospitalist. 0329: I did discuss the patient with the covering hospitalist, Dr. Tai and the patient will be managed on the medical service. Differential Diagnosis Differential diagnosis includes was not limited to urinary tract infection, prostatitis, bladder cancer Consult Healthcare Provider Management of the patient was discussed with: Hospitalist Lab Data [facility] Lab Attestation statement: I reviewed the patient's lab results. Please see [facility] for discussion 12/21/22 00:01 12/21/22 00:01 Labs: Lab Results 12/21/22 12/21/22 12/21/22 Range/Units 00:01 00:01 00:01 WBC 10.3 (4.8-10.8) X10*3/uL RBC 4.05 L (4.60-5.80) X10*6/uL Hgb 10.7 L (14.0-18.0) g/dl Hct 34.7 L (42.0-52.0) % MCV 85.7 (80.0-98.0) fL MCH 26.4 L (27.0-33.0) pg MCHC 30.8 L (31.0-36.0) g/dl RDW 16.4 H (11.0-16.0) % Plt Count 340 (160-400) X10*3/uL MPV 8.8 L (9.4-12.4) fL Immature Gran % (Auto) 0.3 (0.0-0.4) % Neut % (Auto) 76.2 H (45-73) % Lymph % (Auto) 13.2 L (20-40) % [place] % (Auto) 7.4 (2-11) % Eos % (Auto) 2.5 (0-4) % Baso % (Auto) 0.4 (0-2) % Lymph # (Auto) 1.4 (1.2-4.9) X10*3/uL [place] # (Auto) 0.8 (0.1-1.2) X10*3/uL Eos # (Auto) 0.3 (0.0-0.4) X10*3/uL Baso # (Auto) 0.0 (0.0-0.2) X10*3/uL Abs Immat Gran (auto) 0.03 (0.00-0.03) X10*3/uL Absolute Neuts (auto) 7.9 (2.0-8.3) x10*3/uL Absolute Nucleated RBC 0.000 (0.0-0.012) X10*3/uL Nucleated RBC % (auto) 0.0 (0.0-0.2) /100WBC PT 12.4 (10.0-13.1) SEC INR 1.1 (0.9-1.1) APTT 35.4 (26.0-36.4) SEC Sodium 137 (135-145) mmol/L Potassium 5.2 H D (3.3-5.1) mmol/L Chloride 101 (96-108) mmol/L Carbon Dioxide 26 (22-29) mmol/L Anion Gap 15 (12-20) BUN 16 (9-16) mg/dL Creatinine 0.71 (0.5-1.4) mg/dL Estim Creat Clear Calc 61.6 Estimated GFR > 60 Random Glucose 85 (60-115) mg/dL Lactic Acid (0.5-2.0) mmol/L Calcium 8.7 D (8.4-10.2) mg/dL Total Bilirubin 0.3 (0.0-1.0) mg/dL AST 32 (5-37) U/L ALT 18 (0-40) U/L Alkaline Phosphatase 132 H (39-117) U/L Total Protein 6.7 (6.5-8.0) g/dL Albumin 3.2 L (3.5-5.0) g/dL Lipase 12 (8-78) U/L COVID-19 ([facility]) (Negative) COVID-19 Clin Com Influenza Type A ([facility]) (Negative) Influenza Type B ([facility]) (Negative) Influenza A & B Note 12/21/22 12/21/22 12/21/22 Range/Units 00:01 00:01 00:01 WBC (4.8-10.8) X10*3/uL RBC (4.60-5.80) X10*6/uL Hgb (14.0-18.0) g/dl Hct (42.0-52.0) % MCV (80.0-98.0) fL MCH (27.0-33.0) pg MCHC (31.0-36.0) g/dl RDW (11.0-16.0) % Plt Count (160-400) X10*3/uL MPV (9.4-12.4) fL Immature Gran % (Auto) (0.0-0.4) % Neut % (Auto) (45-73) % Lymph % (Auto) (20-40) % [place] % (Auto) (2-11) % Eos % (Auto) (0-4) % Baso % (Auto) (0-2) % Lymph # (Auto) (1.2-4.9) X10*3/uL [place] # (Auto) (0.1-1.2) X10*3/uL Eos # (Auto) (0.0-0.4) X10*3/uL Baso # (Auto) (0.0-0.2) X10*3/uL Abs Immat Gran (auto) (0.00-0.03) X10*3/uL Absolute Neuts (auto) (2.0-8.3) x10*3/uL Absolute Nucleated RBC (0.0-0.012) X10*3/uL Nucleated RBC % (auto) (0.0-0.2) /100WBC PT (10.0-13.1) SEC INR (0.9-1.1) APTT (26.0-36.4) SEC Sodium (135-145) mmol/L Potassium (3.3-5.1) mmol/L Chloride (96-108) mmol/L Carbon Dioxide (22-29) mmol/L Anion Gap (12-20) BUN (9-16) mg/dL Creatinine (0.5-1.4) mg/dL Estim Creat Clear Calc Estimated GFR Random Glucose (60-115) mg/dL Lactic Acid 1.5 (0.5-2.0) mmol/L Calcium (8.4-10.2) mg/dL Total Bilirubin (0.0-1.0) mg/dL AST (5-37) U/L ALT (0-40) U/L Alkaline Phosphatase (39-117) U/L Total Protein (6.5-8.0) g/dL Albumin (3.5-5.0) g/dL Lipase (8-78) U/L COVID-19 ([facility]) Negative (Negative) COVID-19 Clin Com See Note Influenza Type A ([facility]) Negative (Negative) Influenza Type B ([facility]) Negative (Negative) Influenza A & B Note See Note 12/21/22 Range/Units 03:12 WBC (4.8-10.8) X10*3/uL RBC (4.60-5.80) X10*6/uL Hgb (14.0-18.0) g/dl Hct (42.0-52.0) % MCV (80.0-98.0) fL MCH (27.0-33.0) pg MCHC (31.0-36.0) g/dl RDW (11.0-16.0) % Plt Count (160-400) X10*3/uL MPV (9.4-12.4) fL Immature Gran % (Auto) (0.0-0.4) % Neut % (Auto) (45-73) % Lymph % (Auto) (20-40) % [place] % (Auto) (2-11) % Eos % (Auto) (0-4) % Baso % (Auto) (0-2) % Lymph # (Auto) (1.2-4.9) X10*3/uL [place] # (Auto) (0.1-1.2) X10*3/uL Eos # (Auto) (0.0-0.4) X10*3/uL Baso # (Auto) (0.0-0.2) X10*3/uL Abs Immat Gran (auto) (0.00-0.03) X10*3/uL Absolute Neuts (auto) (2.0-8.3) x10*3/uL Absolute Nucleated RBC (0.0-0.012) X10*3/uL Nucleated RBC % (auto) (0.0-0.2) /100WBC PT (10.0-13.1) SEC INR (0.9-1.1) APTT (26.0-36.4) SEC Sodium (135-145) mmol/L Potassium (3.3-5.1) mmol/L Chloride (96-108) mmol/L Carbon Dioxide (22-29) mmol/L Anion Gap (12-20) BUN (9-16) mg/dL Creatinine (0.5-1.4) mg/dL Estim Creat Clear Calc Estimated GFR Random Glucose (60-115) mg/dL Lactic Acid 1.0 (0.5-2.0) mmol/L Calcium (8.4-10.2) mg/dL Total Bilirubin (0.0-1.0) mg/dL AST (5-37) U/L ALT (0-40) U/L Alkaline Phosphatase (39-117) U/L Total Protein (6.5-8.0) g/dL Albumin (3.5-5.0) g/dL Lipase (8-78) U/L COVID-19 ([facility]) (Negative) COVID-19 Clin Com Influenza Type A ([facility]) (Negative) Influenza Type B ([facility]) (Negative) Influenza A & B Note Discharge Plan Discharge Patient Disposition: Admitted As Inpatient
[2022-12-20] MEDS: Haloperidol Lactate 5 MG/ML VIAL 10 MG IM ×2 (21:11→22:37)
[2022-12-20] MEDS: diphenhydrAMINE HCL 50 MG/ML VIAL 25 MG IM (21:12)
--- NOTE | 2022-12-20 21:15 | PC.NURSE ---
Pt aggressive, combative, not redirectable, taking off monitor wires, attempting to hit staff. Meds given as documented. IV lined placed with 3 staff assist at bedside.
--- NOTE | 2022-12-20 21:17 | PC.NURSE ---
Pt from [facility] facility, Pt awake yelling out random words, swinging at staff. Pt legs are contracted in the position. Pt bleeding from urethra with clots noted. Incontinent care provided. Pt has bilateral hip would dressings in place. Pt medicated per MAR.
[2022-12-20 22:37] VITALS: BP 147/95; RESP 18
[2022-12-20 23:07] VITALS: PULSE 117; RESP 18; O2SAT 94
[2022-12-20 23:22] VITALS: PULSE 118; RESP 18; O2SAT 95
[2022-12-21] VITALS (9 sets, daily range): BP systolic 128–166; BP diastolic 68–96; PULSE 97–114; RESP 16–18; TEMP 36–37.1; O2SAT 93–100; BMI 18.8
[2022-12-21 00:06] LABS: MANUAL DIFF FLAG NO
[2022-12-21 00:07] LABS: Basophils Percent Auto 0.4 % (0-2); Eosinophils Absolute Auto 0.3 X10*3/uL (0.0-0.4); Eosinophils Percent Auto 2.5 % (0-4); Hematocrit 34.7 % (42.0-52.0); Hemoglobin 10.7 g/dl (14.0-18.0); Imm Gran Abs Auto 0.03 X10*3/uL (0.00-0.03); Imm Gran Pct Auto 0.3 % (0.0-0.4); Lymphocytes Absolute Auto 1.4 X10*3/uL (1.2-4.9); Lymphocytes Percent Auto 13.2 % (20-40); Mean Corpuscular HGB Conc 30.8 g/dl (31.0-36.0); Mean Corpuscular Hemoglobin 26.4 pg (27.0-33.0); Mean Corpuscular Volume 85.7 fL (80.0-98.0); Mean Platelet Volume 8.8 fL (9.4-12.4); Monocytes Absolute Auto 0.8 X10*3/uL (0.1-1.2); Monocytes Percent Auto 7.4 % (2-11); Neutrophils Absolute Auto 7.9 x10*3/uL (2.0-8.3); Neutrophils Percent Auto 76.2 % (45-73); Platelet Count 340 X10*3/uL (160-400); Red Blood Count 4.05 X10*6/uL (4.60-5.80); Red Cell Distribution Width 16.4 % (11.0-16.0); White Blood Count 10.3 X10*3/uL (4.8-10.8)
[2022-12-21 00:12] LABS: INTERNATIONAL NORM RATIO 1.1 (0.9-1.1); Prothrombin Time 12.4 SEC (10.0-13.1)
[2022-12-21 00:15] LABS: Partial Thromboplastin Time 35.4 SEC (26.0-36.4)
[2022-12-21 00:16] LABS: Lactic Acid 1.5 mmol/L (0.5-2.0)
[2022-12-21 00:35] LABS: Alanine Aminotransferase 18 U/L (0-40); Albumin Level 3.2 g/dL (3.5-5.0); Alkaline Phosphatase 132 U/L (39-117); Anion Gap 15 (12-20); Aspartate Amino Transferase 32 U/L (5-37); Bilirubin Total 0.3 mg/dL (0.0-1.0); Blood Urea Nitrogen 16 mg/dL (9-16); Calcium 8.7 mg/dL (8.4-10.2); Carbon Dioxide 26 mmol/L (22-29); Chloride 101 mmol/L (96-108); Creatinine Clr Calc Pharmacy 61.6; Estimated Glomerular Filt Rate > 60; Glucose Random 85 mg/dL (60-115); IDNOW Serial# 08D9AD1C; Influenza A Negative (Negative); Influenza B2 Negative (Negative); Potassium 5.2 mmol/L (3.3-5.1); Sodium 137 mmol/L (135-145); Total Protein 6.7 g/dL (6.5-8.0)
[2022-12-21 00:36] LABS: COVID-19 Test Negative (Negative); IDNOW Serial# BCCEAD1C
[2022-12-21 00:37] LABS: Lipase 12 U/L (8-78)
--- NOTE | 2022-12-21 01:45 | PC.NURSE ---
3 way clark cath placed by Dr. Michaud, size 22F after multiple attemps by RN. Catheter draining BRB with small clots noted.
--- NOTE | 2022-12-21 02:00 | MHC.EDTECH ---
3way placed for CBI by Dr Michaud.
--- NOTE | 2022-12-21 02:47 | MHC.EDTECH ---
Luevano emptied 1,000mL from CBI.
[2022-12-21] MEDS: cefTRIAXone sodium 1 GM in 0.9 % Sodium Chloride 50 ML IV (03:20)
--- NOTE | 2022-12-21 04:58 | PM.IMHP ---
History of Present Illness Date of Service: 12/21/22 Chief Complaint: blood from penis 82-year-old male with past medical history of dementia, COPD, AFib, prostate cancer, schizophrenia, comes in from [facility] for hematuria. Patient is demented at baseline, and yells and answer to my questions. Therefore history is obtained mostly from ED physician. It appears that patient was being cleaned at [facility] with the noticed blood from penis, as well as own urine. I am unable to get much review of system but per triage note [facility] nurse reported patient bleeding and having blood clots from urethra. On arrival to the ED patient hemodynamically stable with a heart rate of 115 blood pressure stable Labs are significant for WBC count of 10.3, hemoglobin of 10.7 which is around his baseline, medic of 34.7, potassium 5.2, labs otherwise unremarkable. Urine pending Review of Systems Review of Systems: Yes all other systems are reviewed and are negative [facility] Medical History Atrial fibrillation COPD (chronic obstructive pulmonary disease) Dementia Malignant neoplasm of prostate Occipital infarction Prostate cancer Schizophrenia Family History Other Family history unknown Social History Household Members: None Housing: Assisted Living Facility Do you presently have visiting nurse or other home services: No Unable to assess alcohol history related to: Unable to respond and Refusing to respond Alcohol intake: unknown Patient Tobacco Use Status: Tobacco use Unknown Advance Directives: Yes Advance Directives on File: Yes Advance Directives Date on File: 05/18/22 service: No Current occupational status: disabled Meds Allergies Allergy/AdvReac Type Severity Reaction Status Date / Time No Known Allergies Allergy Unverified 06/19/20 17:10 [No Known Allergies*] Active Medications: Current Medications Acetaminophen (Acetaminophen 325 Mg Tablet) 650 mg PO Q6H PRN PRN Reason: Pain, Mild (Pain Scale 1-3) Docusate Sodium (Docusate Sodium 100 Mg Capsule) 100 mg PO DAILY PRN PRN Reason: Constipation Ondansetron HCl (Ondansetron Hcl 4 Mg/2 Ml Vial) 4 mg IVPUSH Q8H PRN PRN Reason: Nausea and Vomiting Pharmacy Consult (Consult Rx Perform Med Rec) 1 each MISCELLANE ONCE PRN PRN Reason: Consult order Sodium Chloride (0.9 % Sodium Chloride Flush 3 Ml Syringe) 3 ml IVFLUSH [facility] Medications Medication Instructions Recorded Confirmed Last Taken Type acetaminophen 325 mg tablet 650 mg PO Q4H PRN PAIN/TEMP 12/30/21 11/15/22 Unknown History atorvastatin 20 mg tablet 20 mg PO BEDTIME 12/30/21 11/15/22 02/05/22 History bisacodyl 10 mg rectal suppository [address] DAILY PRN Constipation 12/30/21 11/15/22 Unknown History chlorpromazine 25 mg tablet 50 mg PO BID 12/30/21 11/15/22 02/06/22 History esomeprazole magnesium 40 mg 40 mg PO BIDAC 12/30/21 11/15/22 02/06/22 History capsule,delayed release (Nexium) gabapentin 100 mg capsule 100 mg PO BID 12/30/21 11/15/22 02/06/22 History haloperidol decanoate 50 mg/mL 10 mg IM Q14D 12/30/21 11/15/22 11/02/22 History intramuscular solution (Haldol Decanoate) lactulose 10 gram/15 mL oral 20 g PO BID 12/30/21 11/15/22 02/06/22 History solution multivitamin 1 tab PO DAILY 12/30/21 11/15/22 02/06/22 History propranolol 20 mg tablet 20 mg PO TID 12/30/21 11/15/22 02/06/22 History sennosides 8.6 mg tablet (senna) 8.6 mg PO DAILY PRN Constipation 12/30/21 11/15/22 Unknown History sennosides 8.6 mg-docusate sodium 2 tab-cap PO BID 12/30/21 11/15/22 02/06/22 History 50 mg tablet (Senna Plus) tamsulosin 0.4 mg capsule 0.4 mg PO DAILY@1900 12/30/21 11/15/22 02/05/22 History tramadol 50 mg tablet 50 mg PO Q8H PRN Pain (Scale Score 12/30/21 11/15/22 Unknown History 4-6) metoclopramide HCl 10 mg tablet 10 mg PO BIDAC 02/06/22 11/15/22 02/06/22 History levetiracetam 100 mg/mL oral 500 mg PO BID 02/13/22 11/15/22 Unknown History solution levothyroxine 100 mcg tablet 1 tab PO DAILY@0630 05/15/22 11/15/22 Unknown History acidophilus 100 million 1 cap PO DAILY 11/15/22 11/15/22 Unknown History cell-pectin, citrus 10 mg capsule arginine (L-arginine) 500 mg oral 500 mg PO DAILY 11/15/22 11/15/22 Unknown History powder packet Physical Exam Vital Signs and Narrative: Vital Signs: Last Vital Signs Temp 98.7 F 12/21/22 02:04 Pulse 114 H 12/21/22 03:13 Resp 16 12/21/22 03:13 BP 141/84 H 12/21/22 03:13 Pulse Ox 99 12/21/22 03:13 O2 Del Method 12/21/22 03:13 BMI result Body Mass Index 18.8 Const: Other: patient is alert, unable to assess orientation as he answers by yelling on asking questions, appears catechtic and frail General: cooperative and no acute distress Eyes: General: appearance normal, both eyes and all related structures Resp: Effort & Inspection: normal respiratory effort Auscultation: clear to auscultation bilaterally Cardio: Rate: regular rate Rhythm: regular rhythm GI: Palpation (GI): Soft to palpation Auscultation: normal bowel sounds Skin: General skin exam: no rashes or lesions noted Extrem: General: Yes normal to inspection and Yes no pedal edema Results Labs 12/21/22 00:01 12/21/22 00:01 Labs: Laboratory Results - last 24 hr 12/21/22 12/21/22 12/21/22 00:01 00:01 00:01 MCV 85.7 MCH 26.4 L MCHC 30.8 L RDW 16.4 H Plt Count 340 MPV 8.8 L Immature Gran % (Auto) 0.3 Neut % (Auto) 76.2 H Lymph % (Auto) 13.2 L [place] % (Auto) 7.4 Eos % (Auto) 2.5 Baso % (Auto) 0.4 Lymph # (Auto) 1.4 [place] # (Auto) 0.8 Eos # (Auto) 0.3 Baso # (Auto) 0.0 Abs Immat Gran (auto) 0.03 Absolute Neuts (auto) 7.9 Absolute Nucleated RBC 0.000 Nucleated RBC % (auto) 0.0 PT 12.4 INR 1.1 APTT 35.4 Anion Gap 15 Estim Creat Clear Calc 61.6 Estimated GFR > 60 Random Glucose 85 Lactic Acid Calcium 8.7 D Total Bilirubin 0.3 AST 32 ALT 18 Alkaline Phosphatase 132 H Total Protein 6.7 Albumin 3.2 L Lipase 12 COVID-19 ([facility]) COVID-19 Clin Com Influenza Type A ([facility]) Influenza Type B ([facility]) Influenza A & B Note 12/21/22 12/21/22 12/21/22 00:01 00:01 00:01 MCV MCH MCHC RDW Plt Count MPV Immature Gran % (Auto) Neut % (Auto) Lymph % (Auto) [place] % (Auto) Eos % (Auto) Baso % (Auto) Lymph # (Auto) [place] # (Auto) Eos # (Auto) Baso # (Auto) Abs Immat Gran (auto) Absolute Neuts (auto) Absolute Nucleated RBC Nucleated RBC % (auto) PT INR APTT Anion Gap Estim Creat Clear Calc Estimated GFR Random Glucose Lactic Acid 1.5 Calcium Total Bilirubin AST ALT Alkaline Phosphatase Total Protein Albumin Lipase COVID-19 ([facility]) Negative COVID-19 Clin Com See Note Influenza Type A ([facility]) Negative Influenza Type B ([facility]) Negative Influenza A & B Note See Note 12/21/22 03:12 MCV MCH MCHC RDW Plt Count MPV Immature Gran % (Auto) Neut % (Auto) Lymph % (Auto) [place] % (Auto) Eos % (Auto) Baso % (Auto) Lymph # (Auto) [place] # (Auto) Eos # (Auto) Baso # (Auto) Abs Immat Gran (auto) Absolute Neuts (auto) Absolute Nucleated RBC Nucleated RBC % (auto) PT INR APTT Anion Gap Estim Creat Clear Calc Estimated GFR Random Glucose Lactic Acid 1.0 Calcium Total Bilirubin AST ALT Alkaline Phosphatase Total Protein Albumin Lipase COVID-19 ([facility]) COVID-19 Clin Com Influenza Type A ([facility]) Influenza Type B ([facility]) Influenza A & B Note Assessment and Plan (1) Hematuria: Qualifiers: Hematuria type: gross Qualified Code(s): R31.0 - Gross hematuria Status: Acute Plan 82-year-old male with past medical history of prostate cancer comes into the hospital after being found to have hematuria # hematuria - unclear etiology at this time - patient placed on continuous irrigation in ED - UA pending - no evidence of acute infection - H&H stable - will continue CBI - urology consulted - will order bladder/ renal ultrasound # hypothyroidism - continue levothyroxine # history of seizures - continue epileptic meds DVT prophylaxis: SCDs setting of hematuria given patient's need for further evaluation, patient requires minimum 2 nights inpatient hospital stay for further management and monitoring Time Spent With Patient Time: Total time managing care of this patient today ____ minutes. Quality Stroke Does the patient have a stroke diagnosis?: No VTE Prior VTE?: No VTE Risk Level:: Medical - moderate - high VTE Device Contraindication: N/A - Device Ordered VTE Drug Contraindication: Treatment Not Indicated
--- NOTE | 2022-12-21 05:03 | PC.NURSE ---
This nurse assumed care of this patient at 04:40 am. Patient is in a stretcher bed, confused, resting with his eyes closed. Per report from previous RN patient could be physically aggressive with nursing staff. 1 st bag of CBI completed at this time. F/C emptied with 1900 mL of pale pink urine noted in the clark bag. 2 nd bag hang and running. Patient tolerating CBI well. Patient has stage II pressure ulcers noted to b/l hips, and f/l foot. IV line in R AC 20 G is patient, wrapped with kerlex wrap for protection.
[2022-12-21 05:35] LABS: Appearance Urine Clear; Color Urine Yellow; Glucose Urine UA Negative (Negative); Leukocyte Esterase Urine Trace (Negative); Nitrite Urine Negative (Negative); PH 6.5 (5.0-9.0); Specific Gravity - Urine <= 1.005 (1.005-1.025); UMIC TRIGGER UACC YES; Urine Blood Large (3+) (Negative); Urine Ketones Negative (Negative); Urine Protein Negative (Neg-Trace)
[2022-12-21 05:41] LABS: Bacteria Urine None Seen (None Seen); Hyaline Casts Urine 0-2 /LPF (0-2); RBC Urine >20 /HPF (0-2); Squamous Epithelial Cell Urine 0-2 /HPF (0-2); WBC Urine 0-5 /HPF (0-5)
[2022-12-21 06:09] LABS: MANUAL DIFF FLAG NO
[2022-12-21 06:29] LABS: Basophils Percent Auto 0.4 % (0-2); Eosinophils Absolute Auto 0.3 X10*3/uL (0.0-0.4); Eosinophils Percent Auto 3.1 % (0-4); Hematocrit 35.4 % (42.0-52.0); Imm Gran Abs Auto 0.02 X10*3/uL (0.00-0.03); Imm Gran Pct Auto 0.2 % (0.0-0.4); Lymphocytes Absolute Auto 1.8 X10*3/uL (1.2-4.9); Lymphocytes Percent Auto 20.2 % (20-40); Mean Corpuscular HGB Conc 31.1 g/dl (31.0-36.0); Mean Corpuscular Hemoglobin 26.8 pg (27.0-33.0); Mean Corpuscular Volume 86.3 fL (80.0-98.0); Mean Platelet Volume 9.5 fL (9.4-12.4); Monocytes Absolute Auto 0.9 X10*3/uL (0.1-1.2); Monocytes Percent Auto 9.4 % (2-11); Neutrophils Absolute Auto 6.1 x10*3/uL (2.0-8.3); Neutrophils Percent Auto 66.7 % (45-73); Platelet Count 358 X10*3/uL (160-400); Red Cell Distribution Width 16.6 % (11.0-16.0); White Blood Count 9.1 X10*3/uL (4.8-10.8)
[2022-12-21 06:38] LABS: Anion Gap 15 (12-20); Blood Urea Nitrogen 17 mg/dL (9-16); Calcium 8.7 mg/dL (8.4-10.2); Carbon Dioxide 26 mmol/L (22-29); Chloride 104 mmol/L (96-108); Creatinine Clr Calc Pharmacy 63.4; Estimated Glomerular Filt Rate > 60; Glucose Random 77 mg/dL (60-115); Potassium 4.6 mmol/L (3.3-5.1); Sodium 140 mmol/L (135-145)
[2022-12-21] MEDS: Lactated Ringers 1,000 ML 100 ML IVCONT ×2 (07:03→17:26)
--- NOTE | 2022-12-21 07:14 | PC.NURSE ---
3 rd CBI bag hang, F/C bag emptied for 2224 mL pale, pink, urine.
--- NOTE | 2022-12-21 07:20 | PC.NURSE ---
NUrse to nurse report called to S3, patient to be transferred to bed 386 in a stretcher bed, CBI running, LR infusing at 100 ml/hr.
--- NOTE | 2022-12-21 09:43 | HE.PHANOTE ---
RE HALDOL LAST IM DOSE WAS 12/09/22 PER [facility]UN[facility]
--- NOTE | 2022-12-21 10:02 | PM.UROCN ---
History of Present Illness Consult details Consult date: 12/21/22 Narrative: 82-year-old male with past medical history of dementia, COPD, AFib, prostate cancer, schizophrenia, Patient is a poor historian and currently not cooperative. History is obtained chart. The patient was admitted from [facility] with complaints that staff noticed blood? from penis, as well in urine.? On arrival to the ED patient hemodynamically stable, Labs are significant for WBC count of 10.3, hemoglobin of 10.7 which is around his baseline,?Called to evaluate due gross hematuria, currently on CBI. Review of Systems Review of Systems: 10 point ROS negative other than stated [facility] Past Medical History Medical History Atrial fibrillation COPD (chronic obstructive pulmonary disease) Dementia Malignant neoplasm of prostate Occipital infarction Prostate cancer Schizophrenia Family History Family History Other Family history unknown Social History Social History Household Members: Unknown / Unable to assess Housing: Other Housing Other:: Per notes: [facility] Do you presently have visiting nurse or other home services: Yes Unable to assess alcohol history related to: Unable to respond Alcohol intake: unknown Patient Tobacco Use Status: Tobacco use Unknown Second Hand Smoke Exposure: No Advance Directives Date on File: 05/18/22 service: No Current occupational status: disabled Meds Allergies Allergy/AdvReac Type Severity Reaction Status Date / Time No Known Allergies Allergy Unverified 06/19/20 17:10 [No Known Allergies*] Active Medications: Current Medications Acetaminophen (Acetaminophen 325 Mg Tablet) 650 mg PO Q6H PRN PRN Reason: Pain, Mild (Pain Scale 1-3) Acetaminophen (Acetaminophen 325 Mg Tablet) 650 mg PO Q4H PRN PRN Reason: PAIN/TEMP Atorvastatin Calcium (Atorvastatin Calcium 20 Mg Tablet) 20 mg PO BEDTIME [facility] Bisacodyl (Bisacodyl 10 Mg Supp.Rect) 10 mg [place] MOWEFR [facility] Chlorpromazine HCl (Chlorpromazine Hcl 25 Mg Tablet) 50 mg PO BID [facility] Collagenase (Collagenase Clostridium Hist. 30 Gm Tube) 1 appl TOPICAL DAILY [facility]; Protocol Docusate Sodium (Docusate Sodium 100 Mg Capsule) 100 mg PO DAILY PRN PRN Reason: Constipation Finasteride (Finasteride 5 Mg Tablet) 5 mg PO DAILY [facility] Gabapentin (Gabapentin 100 Mg Capsule) 100 mg PO BID [facility] Lactated Ringer's (Lr) 1,000 mls @ 100 mls/hr IVCONT .Q10H [facility] Last Admin: 12/21/22 07:03 Dose: 100 mls/hr Lactulose (Lactulose 20 Gm/30 Ml Solution) 20 gm PO BID [facility] Levetiracetam (Levetiracetam Oral Soln 500 Mg/5 Ml) 500 mg PO BID [facility] Levothyroxine Sodium (Levothyroxine Sodium 100 Mcg Tablet) 100 mcg PO DAILY@0630 [facility] Metoclopramide HCl (Metoclopramide Hcl 10 Mg Tablet) 10 mg PO BIDAC [facility] Multivitamins/Vitamin C (Multivitamin Tablet) 1 tab PO DAILY [facility] Omeprazole (Omeprazole 20 Mg Capsule.Dr) 20 mg PO BID@0630,1630 [facility] Ondansetron HCl (Ondansetron Hcl 4 Mg/2 Ml Vial) 4 mg IVPUSH Q8H PRN PRN Reason: Nausea and Vomiting Pharmacy Consult (Consult Rx Perform Med Rec) 1 each MISCELLANE ONCE PRN PRN Reason: Consult order Polyethylene Glycol (Polyethylene Glycol 3350 17 Gm Powd.Pack) 17 gm PO DAILY [facility] Propranolol HCl (Propranolol Hcl 20 Mg Tablet) 20 mg PO TID [facility]; Protocol Senna (Sennosides 8.6 Mg Tablet) 8.6 mg PO DAILY PRN PRN Reason: Constipation Senna/Docusate Sodium (Sennosides/Docusate Sodium Tablet) 2 tab PO BID [facility] Sodium Biphosphate/Sodium Phosphate (Sodium Phosphate,[place]-Dibasic 133 Ml Enema) 118 ml [place] DAILY PRN PRN Reason: Constipation Sodium Chloride (0.9 % Sodium Chloride Flush 3 Ml Syringe) 3 ml IVFLUSH QSHIFT [facility] Tamsulosin HCl (Tamsulosin Hcl 0.4 Mg Capsule) 0.4 mg PO DAILY@2100 [facility] Tramadol HCl (Tramadol Hcl 50 Mg Tablet) 50 mg PO BID PRN PRN Reason: Moderate Pain (Scale Score 5-6) Tramadol HCl (Tramadol Hcl 50 Mg Tablet) 50 mg PO Q8H [facility] Home Medications Medication Instructions Recorded Confirmed Last Taken Type acetaminophen 325 mg tablet 650 mg PO Q4H PRN PAIN/TEMP 12/30/21 12/21/22 Unknown History atorvastatin 20 mg tablet 20 mg PO BEDTIME 12/30/21 12/21/22 02/05/22 History bisacodyl 10 mg rectal suppository 10 mg [place] MOWEFR 12/30/21 12/21/22 12/20/22 History esomeprazole magnesium 40 mg 40 mg PO BID@0630,1630 12/30/21 12/21/22 02/06/22 History capsule,delayed release (Nexium) gabapentin 100 mg capsule 100 mg PO BID 12/30/21 12/21/22 02/06/22 History haloperidol decanoate 50 mg/mL 10 mg IM Q14D 12/30/21 12/21/22 12/09/22 History intramuscular solution (Haldol Decanoate) lactulose 10 gram/15 mL oral 20 g PO BID 12/30/21 12/21/22 02/06/22 History solution multivitamin 1 tab PO DAILY 12/30/21 12/21/22 02/06/22 History propranolol 20 mg tablet 20 mg PO TID 12/30/21 12/21/22 02/06/22 History sennosides 8.6 mg tablet (senna) 8.6 mg PO DAILY PRN Constipation 12/30/21 12/21/22 Unknown History sennosides 8.6 mg-docusate sodium 2 tab PO BID 12/30/21 12/21/22 02/06/22 History 50 mg tablet (Senna Plus) tamsulosin 0.4 mg capsule 0.4 mg PO DAILY@2100 12/30/21 12/21/22 02/05/22 History tramadol 50 mg tablet 50 mg PO Q8H 12/30/21 12/21/22 Unknown History metoclopramide HCl 10 mg tablet 10 mg PO BIDAC 02/06/22 12/21/22 02/06/22 History levetiracetam 100 mg/mL oral 500 mg PO BID 02/13/22 12/21/22 Unknown History solution levothyroxine 100 mcg tablet 1 tab PO DAILY@0630 05/15/22 12/21/22 Unknown History acidophilus 100 million 1 cap PO DAILY 11/15/22 12/21/22 Unknown History cell-pectin, citrus 10 mg capsule aspirin 81 mg capsule 81 mg PO DAILY 12/21/22 12/21/22 Unknown History bisacodyl 10 mg rectal suppository 10 mg [place] DAILY PRN Constipation 12/21/22 12/21/22 Unknown History bisacodyl 5 mg tablet 5 mg PO BEDTIME 12/21/22 12/21/22 Unknown History chlorpromazine 50 mg tablet 50 mg PO BID 12/21/22 12/21/22 Unknown History collagenase clostridium histo. 250 1 appl topical DAILY 12/21/22 12/21/22 Unknown History unit/gram topical ointment (Santyl) nutritional supplements 1 ea PO BID 12/21/22 12/21/22 Unknown History sodium phosphates 19 gram-7 118 ml [place] DAILY PRN Constipation 12/21/22 12/21/22 Unknown History gram/118 mL enema (Fleet Enema) tramadol 50 mg tablet 50 mg PO BID PRN Moderate Pain 12/21/22 12/21/22 Unknown History (Scale Score 5-6) Physical Exam Vital Signs: Vital Signs: Last Vital Signs Temp 96.9 F 12/21/22 08:00 Pulse 106 H 12/21/22 08:00 Resp 18 12/21/22 08:00 BP 140/69 H 12/21/22 08:00 Pulse Ox 94 12/21/22 08:00 O2 Del Method 12/21/22 08:00 BMI result Body Mass Index 18.8 Const: General: no acute distress and combative Limitations: other limitations (severe lower extremity contractures, lies in position) HEENT: Head: Yes normocephalic and Yes atraumatic Eyes: Conjunctivae: conjunctivae normal Neck: Neck: Yes normal visual inspection Chest: Chest palpation & inspection: normal inspection of the chest Resp: Effort & Inspection: normal respiratory effort Cardio: Rate: regular rate GI: Inspection: Yes normal to inspection Palpation (GI): Soft to palpation : Other: clark in place, urine clear on CBI Penis: normal penis Scrotum: scrotum normal Extrem: General: No pedal edema Psych: Affect: Irritable affect present Attitude: Other attitude/behavior findings present (Psych) (combative) Results Labs 12/21/22 05:46 12/21/22 05:46 Labs: Abnormal lab results 12/21/22 12/21/22 12/21/22 Range/Units 00:01 00:01 05:28 RBC 4.05 L (4.60-5.80) X10*6/uL Hgb 10.7 L (14.0-18.0) g/dl Hct 34.7 L (42.0-52.0) % MCH 26.4 L (27.0-33.0) pg MCHC 30.8 L (31.0-36.0) g/dl RDW 16.4 H (11.0-16.0) % MPV 8.8 L (9.4-12.4) fL Neut % (Auto) 76.2 H (45-73) % Lymph % (Auto) 13.2 L (20-40) % Potassium 5.2 H D (3.3-5.1) mmol/L BUN (9-16) mg/dL Alkaline Phosphatase 132 H (39-117) U/L Albumin 3.2 L (3.5-5.0) g/dL Urine Blood Large (3+) H (Negative) Ur Leukocyte Esterase Trace H (Negative) Urine RBC >20 H (0-2) /HPF 12/21/22 12/21/22 Range/Units 05:46 05:46 RBC 4.10 L (4.60-5.80) X10*6/uL Hgb 11.0 L (14.0-18.0) g/dl Hct 35.4 L (42.0-52.0) % MCH 26.8 L (27.0-33.0) pg MCHC (31.0-36.0) g/dl RDW 16.6 H (11.0-16.0) % MPV (9.4-12.4) fL Neut % (Auto) (45-73) % Lymph % (Auto) (20-40) % Potassium (3.3-5.1) mmol/L BUN 17 H (9-16) mg/dL Alkaline Phosphatase (39-117) U/L Albumin (3.5-5.0) g/dL Urine Blood (Negative) Ur Leukocyte Esterase (Negative) Urine RBC (0-2) /HPF Short CBC 12/21/22 12/21/22 Range/Units 00:01 05:46 WBC 10.3 9.1 (4.8-10.8) X10*3/uL Hgb 10.7 L 11.0 L (14.0-18.0) g/dl Hct 34.7 L 35.4 L (42.0-52.0) % Plt Count 340 358 (160-400) X10*3/uL BMP 12/21/22 12/21/22 00:01 05:46 Sodium 137 140 Potassium 5.2 H D 4.6 Chloride 101 104 Carbon Dioxide 26 26 BUN 16 17 H Creatinine 0.71 0.69 Calcium 8.7 D 8.7 Liver Function 12/21/22 Range/Units 00:01 Total Bilirubin 0.3 (0.0-1.0) mg/dL AST 32 (5-37) U/L ALT 18 (0-40) U/L Alkaline Phosphatase 132 H (39-117) U/L Albumin 3.2 L (3.5-5.0) g/dL Urine 12/21/22 Range/Units 05:28 Urine Color Yellow Urine Appearance Clear Urine pH 6.5 (5.0-9.0) Ur Specific [place] <= 1.005 (1.005-1.025) Urine Protein Negative (Neg-Trace) mg/dL Urine Glucose (UA) Negative (Negative) mg/dL All other labs normal. Assessment and Plan (1) Hematuria: Qualifiers: Hematuria type: gross Qualified Code(s): R31.0 - Gross hematuria Status: Acute (2) BPH loc w urin obs/LUTS: Status: Acute (3) Urinary retention: Status: Acute Plan Hematuria improved on CBI Hb stable Would hold on renal sono for today as patient is combative Time Spent With Patient Time: Total time managing care of this patient today ____ minutes. Procedures Date of Service Date of Service: 12/21/22
[2022-12-21] MEDS: Lactulose 20 GM/30 ML SOLUTION PO ×2 (10:46→20:32)
[2022-12-21] MEDS: levETIRAcetam Oral Soln 500 MG/5 ML PO ×2 (10:46→20:32)
--- NOTE | 2022-12-21 11:05 | HO.PM.IMPN ---
Subjective Subjective Date of Service: 12/21/22 Interval History: agitated, punch color urine Physical Exam Vital Signs: Vital Signs: Last Vital Signs Temp 96.9 F 12/21/22 08:00 Pulse 106 H 12/21/22 08:00 Resp 18 12/21/22 08:00 BP 140/69 H 12/21/22 08:00 Pulse Ox 94 12/21/22 08:00 O2 Del Method 12/21/22 08:00 BMI result Body Mass Index 18.8 bed bound, frail, contracted, non communicative Objective Data Active Medications Acetaminophen (Acetaminophen 325 Mg Tablet) 650 mg PO Q6H PRN PRN Reason: Pain, Mild (Pain Scale 1-3) Acetaminophen (Acetaminophen 325 Mg Tablet) 650 mg PO Q4H PRN PRN Reason: PAIN/TEMP Atorvastatin Calcium (Atorvastatin Calcium 20 Mg Tablet) 20 mg PO BEDTIME [facility] Bisacodyl (Bisacodyl 10 Mg Supp.Rect) 10 mg [place] MOWEFR [facility] Chlorpromazine HCl (Chlorpromazine Hcl 25 Mg Tablet) 50 mg PO BID [facility] Last Admin: 12/21/22 10:59 Dose: Not Given Documented By: BULMARO Non-Admin Reason: Patient Refused Collagenase (Collagenase Clostridium Hist. 30 Gm Tube) 1 appl TOPICAL DAILY [facility]; Protocol Last Admin: 12/21/22 10:54 Dose: Not Given Documented By: BULMARO Non-Admin Reason: waiting for med from pharm Docusate Sodium (Docusate Sodium 100 Mg Capsule) 100 mg PO DAILY PRN PRN Reason: Constipation Finasteride (Finasteride 5 Mg Tablet) 5 mg PO DAILY [facility] Last Admin: 12/21/22 10:54 Dose: Not Given Documented By: BULMARO Non-Admin Reason: pt takes crushed meds only Gabapentin (Gabapentin 100 Mg Capsule) 100 mg PO BID [facility] Last Admin: 12/21/22 10:59 Dose: Not Given Documented By: BULMARO Non-Admin Reason: Patient Refused Lactated Ringer's (Lr) 1,000 mls @ 100 mls/hr IVCONT .Q10H [facility] Last Admin: 12/21/22 07:03 Dose: 100 mls/hr Documented By: CLAY Lactulose (Lactulose 20 Gm/30 Ml Solution) 20 gm PO BID [facility] Last Admin: 12/21/22 10:46 Dose: 20 gm Documented By: BULMARO Levetiracetam (Levetiracetam Oral Soln 500 Mg/5 Ml) 500 mg PO BID [facility] Last Admin: 12/21/22 10:46 Dose: 500 mg Documented By: BULMARO Levothyroxine Sodium (Levothyroxine Sodium 100 Mcg Tablet) 100 mcg PO DAILY@0630 [facility] Metoclopramide HCl (Metoclopramide Hcl 10 Mg Tablet) 10 mg PO BIDAC [facility] Multivitamins/Vitamin C (Multivitamin Tablet) 1 tab PO DAILY [facility] Last Admin: 12/21/22 11:00 Dose: Not Given Documented By: BULMARO Non-Admin Reason: Patient Refused Omeprazole (Omeprazole 20 Mg Capsule.Dr) 20 mg PO BID@0630,1630 [facility] Ondansetron HCl (Ondansetron Hcl 4 Mg/2 Ml Vial) 4 mg IVPUSH Q8H PRN PRN Reason: Nausea and Vomiting Pharmacy Consult (Consult Rx Perform Med Rec) 1 each MISCELLANE ONCE PRN PRN Reason: Consult order Polyethylene Glycol (Polyethylene Glycol 3350 17 Gm Powd.Pack) 17 gm PO DAILY [facility] Last Admin: 12/21/22 10:47 Dose: Not Given Documented By: BULMARO Non-Admin Reason: Patient Refused Propranolol HCl (Propranolol Hcl 20 Mg Tablet) 20 mg PO TID [facility]; Protocol Last Admin: 12/21/22 10:58 Dose: Not Given Documented By: BULMARO Non-Admin Reason: Patient Refused Senna (Sennosides 8.6 Mg Tablet) 8.6 mg PO DAILY PRN PRN Reason: Constipation Senna/Docusate Sodium (Sennosides/Docusate Sodium Tablet) 2 tab PO BID [facility] Last Admin: 12/21/22 10:59 Dose: Not Given Documented By: BULMARO Non-Admin Reason: Patient Refused Sodium Biphosphate/Sodium Phosphate (Sodium Phosphate,[place]-Dibasic 133 Ml Enema) 118 ml [place] DAILY PRN PRN Reason: Constipation Sodium Chloride (0.9 % Sodium Chloride Flush 3 Ml Syringe) 3 ml IVFLUSH QSHIFT [facility] Last Admin: 12/21/22 10:47 Dose: Not Given Documented By: BULMARO Non-Admin Reason: Patient Refused Tamsulosin HCl (Tamsulosin Hcl 0.4 Mg Capsule) 0.4 mg PO DAILY@2100 [facility] Tramadol HCl (Tramadol Hcl 50 Mg Tablet) 50 mg PO BID PRN PRN Reason: Moderate Pain (Scale Score 5-6) Tramadol HCl (Tramadol Hcl 50 Mg Tablet) 50 mg PO Q8H [facility] Last Admin: 12/21/22 10:58 Dose: Not Given Documented By: BULMARO Non-Admin Reason: Patient Refused Labs 12/21/22 05:46 12/21/22 05:46 Labs: Laboratory Results - last 24 hr 12/21/22 12/21/22 12/21/22 00:01 00:01 00:01 MCV 85.7 MCH 26.4 L MCHC 30.8 L RDW 16.4 H Plt Count 340 MPV 8.8 L Immature Gran % (Auto) 0.3 Neut % (Auto) 76.2 H Lymph % (Auto) 13.2 L [place] % (Auto) 7.4 Eos % (Auto) 2.5 Baso % (Auto) 0.4 Lymph # (Auto) 1.4 [place] # (Auto) 0.8 Eos # (Auto) 0.3 Baso # (Auto) 0.0 Abs Immat Gran (auto) 0.03 Absolute Neuts (auto) 7.9 Absolute Nucleated RBC 0.000 Nucleated RBC % (auto) 0.0 PT 12.4 INR 1.1 APTT 35.4 Anion Gap 15 Estim Creat Clear Calc 61.6 Estimated GFR > 60 Random Glucose 85 Lactic Acid Calcium 8.7 D Total Bilirubin 0.3 AST 32 ALT 18 Alkaline Phosphatase 132 H Total Protein 6.7 Albumin 3.2 L Lipase 12 Urine Color Urine Appearance Urine pH Ur Specific [place] Urine Protein Urine Glucose (UA) Urine Ketones Urine Blood Urine Nitrite Ur Leukocyte Esterase Urine RBC Urine WBC Ur Squamous Epith Cells Urine Bacteria Hyaline Casts COVID-19 ([facility]) COVID-19 Clin Com Influenza Type A ([facility]) Influenza Type B ([facility]) Influenza A & B Note 12/21/22 12/21/22 12/21/22 00:01 00:01 00:01 MCV MCH MCHC RDW Plt Count MPV Immature Gran % (Auto) Neut % (Auto) Lymph % (Auto) [place] % (Auto) Eos % (Auto) Baso % (Auto) Lymph # (Auto) [place] # (Auto) Eos # (Auto) Baso # (Auto) Abs Immat Gran (auto) Absolute Neuts (auto) Absolute Nucleated RBC Nucleated RBC % (auto) PT INR APTT Anion Gap Estim Creat Clear Calc Estimated GFR Random Glucose Lactic Acid 1.5 Calcium Total Bilirubin AST ALT Alkaline Phosphatase Total Protein Albumin Lipase Urine Color Urine Appearance Urine pH Ur Specific [place] Urine Protein Urine Glucose (UA) Urine Ketones Urine Blood Urine Nitrite Ur Leukocyte Esterase Urine RBC Urine WBC Ur Squamous Epith Cells Urine Bacteria Hyaline Casts COVID-19 ([facility]) Negative COVID-19 Clin Com See Note Influenza Type A ([facility]) Negative Influenza Type B ([facility]) Negative Influenza A & B Note See Note 12/21/22 12/21/22 12/21/22 03:12 05:28 05:46 MCV 86.3 MCH 26.8 L MCHC 31.1 RDW 16.6 H Plt Count 358 MPV 9.5 Immature Gran % (Auto) 0.2 Neut % (Auto) 66.7 Lymph % (Auto) 20.2 [place] % (Auto) 9.4 Eos % (Auto) 3.1 Baso % (Auto) 0.4 Lymph # (Auto) 1.8 [place] # (Auto) 0.9 Eos # (Auto) 0.3 Baso # (Auto) 0.0 Abs Immat Gran (auto) 0.02 Absolute Neuts (auto) 6.1 Absolute Nucleated RBC 0.000 Nucleated RBC % (auto) 0.0 PT INR APTT Anion Gap Estim Creat Clear Calc Estimated GFR Random Glucose Lactic Acid 1.0 Calcium Total Bilirubin AST ALT Alkaline Phosphatase Total Protein Albumin Lipase Urine Color Yellow Urine Appearance Clear Urine pH 6.5 Ur Specific [place] <= 1.005 Urine Protein Negative Urine Glucose (UA) Negative Urine Ketones Negative Urine Blood Large (3+) H Urine Nitrite Negative Ur Leukocyte Esterase Trace H Urine RBC >20 H Urine WBC 0-5 Ur Squamous Epith Cells 0-2 Urine Bacteria None Seen Hyaline Casts 0-2 COVID-19 ([facility]) COVID-19 Clin Com Influenza Type A ([facility]) Influenza Type B ([facility]) Influenza A & B Note 12/21/22 05:46 MCV MCH MCHC RDW Plt Count MPV Immature Gran % (Auto) Neut % (Auto) Lymph % (Auto) [place] % (Auto) Eos % (Auto) Baso % (Auto) Lymph # (Auto) [place] # (Auto) Eos # (Auto) Baso # (Auto) Abs Immat Gran (auto) Absolute Neuts (auto) Absolute Nucleated RBC Nucleated RBC % (auto) PT INR APTT Anion Gap 15 Estim Creat Clear Calc 63.4 Estimated GFR > 60 Random Glucose 77 Lactic Acid Calcium 8.7 Total Bilirubin AST ALT Alkaline Phosphatase Total Protein Albumin Lipase Urine Color Urine Appearance Urine pH Ur Specific [place] Urine Protein Urine Glucose (UA) Urine Ketones Urine Blood Urine Nitrite Ur Leukocyte Esterase Urine RBC Urine WBC Ur Squamous Epith Cells Urine Bacteria Hyaline Casts COVID-19 ([facility]) COVID-19 Clin Com Influenza Type A ([facility]) Influenza Type B ([facility]) Influenza A & B Note Assessment and Plan (1) Hematuria: Status: Acute Plan 82M PMH advanced dementia, COPD, prostate cancer, schizophrenia, paroxysmal afib, presented with hematuria hematuria CBI eval hypothryoid synthroid schizophrenia haldol zyprexa prn advanced dementia zyprexa prn paroxysmal afib propranolol not on AC hypothyroidism levothyroxine ?DVT prophylaxis:? SCDs setting of hematuria full code reason for continued hospitalization:hematuria Time Spent With Patient Time: Total time managing care of this patient today ____ minutes. Quality Stroke Does the patient have a stroke diagnosis?: No VTE Prior VTE?: No VTE Risk Level:: Medical - moderate - high VTE Device Contraindication: N/A - Device Ordered VTE Drug Contraindication: Treatment Not Indicated
--- NOTE | 2022-12-21 11:12 | MHC.CM.PN ---
pt from [facility] where he is a bed hold and where he will return message left for guardian jumana espinoza [phone]
--- NOTE | 2022-12-21 12:00 | MHC.CLN ---
PT IS MODERATELY MALNOURISHED PT WITH MILDLY DEPLETED SUBCUTANEOUS FAT AND MUSCLE MASS WITH 18% NONSIGNIFICANT WT LOSS X 1 YEAR AND INCREASED NUTRITION NEEDS R/T PRESSURE INJURY DIET RX: REGULAR CHOPPED-APPROPRIATE RECOMMEND ADDING ENSURE TID TO INCREASE KCALS AND PROMOTE WOUND HEALING SUPP TO PROVIDE 1050KCALS, 60G PROTEIN WITH 100% ACCEPTANCE MONITOR PO AND SUPP ACCEPTANCE SEE ALSO FULL CLINICAL NUTRITION ASSESSMENT
--- NOTE | 2022-12-21 13:00 | PC.NURSE ---
Pt arrived to unit from ED at approx 0830, Pt confused mumbling one word answers, pt has dementia at baseline, pt arrived swatting, hitting, and yelling at staff. Limited assessment data do to combative nature of patient. VSS at this time. Pt has bilateral leg contractors, bilateral hip pressure ulcers reported from ED nurse, foam dressings intact. Airloss pump for mattress applied to bed. Pt arrived with CBI running, clear dark/pink urine in bag. Pt was able to take liquid medication in juice, when attempted to give other pills crushed in juice/pudding pt took cup from this RNs hand, crushed it and threw juice/meds at RN. ordered Daily IM dose of zyprea, called Pharm to bring up med (currently awaiting arrival of med). MD Ann at bedside this AM, states she will follow up with Ultrasound plan.
[2022-12-21] MEDS: OLANZapine 10 MG VIAL 5 MG IM (13:45)
[2022-12-21] MEDS: Propranolol HCL 20 MG TABLET PO ×2 (14:31→20:32)
[2022-12-21] MEDS: 0.9 % Sodium Chloride Flush 3 ML SYRINGE IVFLUSH (15:30)
--- NOTE | 2022-12-21 15:44 | PC.NURSE ---
Patient verbally abusive,combative,hit nurse when attempted to administer meds.
--- NOTE | 2022-12-21 16:31 | PC.NURSE ---
Unable to adm any meds,patient combative,Dr. Peraza notified.
[2022-12-21] MEDS: chlorproMAZINE HCl 25 MG TABLET 50 MG PO (20:32)
[2022-12-21] MEDS: Tamsulosin HCL 0.4 MG CAPSULE PO (20:32)
[2022-12-21] MEDS: Sennosides/Docusate Sodium TABLET 2 TAB PO (20:32)
[2022-12-21] MEDS: Gabapentin 100 MG CAPSULE PO (20:32)
[2022-12-21] MEDS: Atorvastatin Calcium 20 MG TABLET PO (20:32)
[2022-12-21] MEDS: Acetaminophen 325 MG TABLET 650 MG PO (22:46)
[2022-12-22] MEDS: traMADoL HCL 50 MG TABLET PO ×2 (00:09→08:47)
[2022-12-22] MEDS: Lactated Ringers 1,000 ML 100 ML IVCONT ×2 (00:09→10:33)
[2022-12-22 04:00] VITALS: BP 113/57; PULSE 83; RESP 16; TEMP 36.1; O2SAT 94
[2022-12-22] MEDS: Levothyroxine Sodium 100 MCG TABLET PO (05:30)
[2022-12-22] MEDS: Omeprazole 20 MG CAPSULE.DR PO (05:30)
[2022-12-22 07:00] LABS: Hemoglobin 10.1 g/dl (14.0-18.0); Mean Corpuscular HGB Conc 30.6 g/dl (31.0-36.0); Mean Corpuscular Hemoglobin 26.6 pg (27.0-33.0); Mean Corpuscular Volume 87.1 fL (80.0-98.0); Mean Platelet Volume 9.6 fL (9.4-12.4); Platelet Count 319 X10*3/uL (160-400); Red Blood Count 3.79 X10*6/uL (4.60-5.80); Red Cell Distribution Width 17.2 % (11.0-16.0); White Blood Count 7.8 X10*3/uL (4.8-10.8)
[2022-12-22 07:23] LABS: Anion Gap 15 (12-20); Blood Urea Nitrogen 17 mg/dL (9-16); Calcium 8.8 mg/dL (8.4-10.2); Carbon Dioxide 25 mmol/L (22-29); Chloride 105 mmol/L (96-108); Creatinine Clr Calc Pharmacy 61.6; Estimated Glomerular Filt Rate > 60; Glucose Fasting 71 mg/dL (60-99); Potassium 4.3 mmol/L (3.3-5.1); Sodium 141 mmol/L (135-145)
[2022-12-22 07:54] VITALS: BP 101/57; PULSE 95; RESP 16; TEMP 36.6; O2SAT 98
[2022-12-22] MEDS: levETIRAcetam Oral Soln 500 MG/5 ML PO (08:45)
[2022-12-22] MEDS: polyethylene glycoL 3350 17 GM POWD.PACK PO (08:45)
[2022-12-22] MEDS: Sennosides/Docusate Sodium TABLET 2 TAB PO (08:47)
[2022-12-22] MEDS: Multivitamin TABLET 1 TAB PO (08:48)
[2022-12-22] MEDS: Propranolol HCL 20 MG TABLET PO ×2 (08:48→14:01)
[2022-12-22] MEDS: Gabapentin 100 MG CAPSULE PO (08:48)
[2022-12-22] MEDS: Metoclopramide HCl 10 MG TABLET PO (08:48)
[2022-12-22] MEDS: Finasteride 5 MG TABLET PO (08:48)
[2022-12-22] MEDS: Lactulose 20 GM/30 ML SOLUTION PO (08:49)
[2022-12-22] MEDS: 0.9 % Sodium Chloride Flush 3 ML SYRINGE IVFLUSH (08:52)
[2022-12-22] MEDS: chlorproMAZINE HCl 25 MG TABLET 50 MG PO (08:52)
[2022-12-22] MEDS: Collagenase Clostridium Hist. 30 GM TUBE 1 APPL TOPICAL (10:33)
--- NOTE | 2022-12-22 11:55 | P.PNIM_ITS ---
Subjective Subjective Date of Service: 12/22/22 Physical Exam Vital Signs: Vital Signs: Last Vital Signs Temp 97.9 F 12/22/22 07:54 Pulse 95 12/22/22 07:54 Resp 16 12/22/22 07:54 BP 101/57 L 12/22/22 07:54 Pulse Ox 98 12/22/22 07:54 O2 Del Method 12/22/22 07:54 BMI result Body Mass Index 18.8 Const: Other: Constitutional : Awake with srimulation, poorly interactive, cachetic, not in distress Neck : Normal inspection, Supple Cardiovascular : RRR, no JVP, no lower extremity edema Respiratory : good bilateral air entry, no crackles, wheezes or rhonchi Gastrointestinal: soft, lax, Normal bowel sounds, Non tender Skin : Warm, Dry, right hip stage 2 pressure injury Neurological : Alert with stimulation & oriented to self , No focal deficit Objective Data Active Medications Acetaminophen (Acetaminophen 325 Mg Tablet) 650 mg PO Q6H PRN PRN Reason: Pain, Mild (Pain Scale 1-3) Last Admin: 12/21/22 22:46 Dose: 650 mg Documented By: SELENA Acetaminophen (Acetaminophen 325 Mg Tablet) 650 mg PO Q4H PRN PRN Reason: PAIN/TEMP Atorvastatin Calcium (Atorvastatin Calcium 20 Mg Tablet) 20 mg PO BEDTIME [facility] Last Admin: 12/21/22 20:32 Dose: 20 mg Documented By: SELENA Bisacodyl (Bisacodyl 10 Mg Supp.Rect) 10 mg OR MOWEFR [facility] Last Admin: 12/22/22 10:33 Dose: Not Given Documented By: RANDY Non-Admin Reason: Patient Refused Chlorpromazine HCl (Chlorpromazine Hcl 25 Mg Tablet) 50 mg PO BID [facility] Last Admin: 12/22/22 08:52 Dose: 50 mg Documented By: RANDY Collagenase (Collagenase Clostridium Hist. 30 Gm Tube) 1 appl TOPICAL DAILY [facility]; Protocol Last Admin: 12/22/22 10:33 Dose: 1 appl Documented By: RANDY Docusate Sodium (Docusate Sodium 100 Mg Capsule) 100 mg PO DAILY PRN PRN Reason: Constipation Finasteride (Finasteride 5 Mg Tablet) 5 mg PO DAILY [facility] Last Admin: 12/22/22 08:48 Dose: 5 mg Documented By: RANDY Gabapentin (Gabapentin 100 Mg Capsule) 100 mg PO BID [facility] Last Admin: 12/22/22 08:48 Dose: 100 mg Documented By: RANDY Lactated Ringer's (Lr) 1,000 mls @ 100 mls/hr IVCONT .Q10H [facility] Last Admin: 12/22/22 10:33 Dose: 100 mls/hr Documented By: RANDY Lactulose (Lactulose 20 Gm/30 Ml Solution) 20 gm PO BID [facility] Last Admin: 12/22/22 08:49 Dose: 20 gm Documented By: RANDY Levetiracetam (Levetiracetam Oral Soln 500 Mg/5 Ml) 500 mg PO BID [facility] Last Admin: 12/22/22 08:45 Dose: 500 mg Documented By: RANDY Levothyroxine Sodium (Levothyroxine Sodium 100 Mcg Tablet) 100 mcg PO DAILY@06 30 [facility] Last Admin: 12/22/22 05:30 Dose: 100 mcg Documented By: SELENA Metoclopramide HCl (Metoclopramide Hcl 10 Mg Tablet) 10 mg PO BIDAC [facility] Last Admin: 12/22/22 08:48 Dose: 10 mg Documented By: RANDY Multivitamins/Vitamin C (Multivitamin Tablet) 1 tab PO DAILY [facility] Last Admin: 12/22/22 08:48 Dose: 1 tab Documented By: RANDY Olanzapine (Olanzapine 10 Mg Vial) 5 mg IM DAILY PRN PRN Reason: agitatoin Last Admin: 12/21/22 13:45 Dose: 5 mg Documented By: BULMARO Omeprazole (Omeprazole 20 Mg Jackson.) 20 mg PO BID@0630,1630 [facility] Last Admin: 12/22/22 05:30 Dose: 20 mg Documented By: SELENA Ondansetron HCl (Ondansetron Hcl 4 Mg/2 Ml Vial) 4 mg IVPUSH Q8H PRN PRN Reason: Nausea and Vomiting Pharmacy Consult (Consult Rx Perform Med Rec) 1 each MISCELLANE ONCE PRN PRN Reason: Consult order Polyethylene Glycol (Polyethylene Glycol 3350 17 Gm Powd.Pack) 17 gm PO DAILY [facility] Last Admin: 12/22/22 08:45 Dose: 17 gm Documented By: RANDY Propranolol HCl (Propranolol Hcl 20 Mg Tablet) 20 mg PO TID [facility]; Protocol Last Admin: 12/22/22 08:48 Dose: 20 mg Documented By: RANDY Senna (Sennosides 8.6 Mg Tablet) 8.6 mg PO DAILY PRN PRN Reason: Constipation Senna/Docusate Sodium (Sennosides/Docusate Sodium Tablet) 2 tab PO BID [facility] Last Admin: 12/22/22 08:47 Dose: 2 tab Documented By: RANDY Sodium Biphosphate/Sodium Phosphate (Sodium Phosphate,[place]-Dibasic 133 Ml Enema) 118 ml OR DAILY PRN PRN Reason: Constipation Sodium Chloride (0.9 % Sodium Chloride Flush 3 Ml Syringe) 3 ml IVFLUSH QSHIFT [facility] Last Admin: 12/22/22 08:52 Dose: 3 ml Documented By: RANDY Tamsulosin HCl (Tamsulosin Hcl 0.4 Mg Capsule) 0.4 mg PO DAILY@2100 [facility] Last Admin: 12/21/22 20:32 Dose: 0.4 mg Documented By: SELENA Tramadol HCl (Tramadol Hcl 50 Mg Tablet) 50 mg PO BID PRN PRN Reason: Moderate Pain (Scale Score 5-6) Tramadol HCl (Tramadol Hcl 50 Mg Tablet) 50 mg PO Q8H [facility] Last Admin: 12/22/22 08:47 Dose: 50 mg Documented By: RANDY Labs 12/22/22 05:27 12/22/22 05:27 Labs: Laboratory Results - last 24 hr 12/22/22 12/22/22 05:27 05:27 MCV 87.1 MCH 26.6 L MCHC 30.6 L RDW 17.2 H Plt Count 319 MPV 9.6 Absolute Nucleated RBC 0.000 Nucleated RBC % (auto) 0.0 Anion Gap 15 Estim Creat Clear Calc 61.6 Estimated GFR > 60 Fasting Glucose 71 Calcium 8.8 Microbiology Microbiology Results: Microbiology 12/21/22 03:12 Blood Culture - Preliminary Blood - Venous No growth after 24 hours. 12/21/22 03:11 Blood Culture - Preliminary Blood - Venous No growth after 24 hours. Assessment and Plan (1) Hematuria: Status: Acute (2) Moderate protein-calorie malnutrition: Status: Acute Plan 82M PMH advanced dementia, COPD, prostate cancer, schizophrenia, paroxysmal afib, presented with hematuria hematuria clearing up on CBI, hold eval appreciated right hip stage 2 pressure injury local measures, avoid pressure, rotation moderate malnutrition add supplement hypothryoid synthroid schizophrenia haldol zyprexa prn advanced dementia zyprexa prn paroxysmal afib propranolol not on AC hypothyroidism levothyroxine ?DVT prophylaxis:? SCDs setting of hematuria reason for continued hospitalization:hematuria Time Spent With Patient Time: Total time managing care of this patient today ____ minutes. Quality Stroke Does the patient have a stroke diagnosis?: No VTE Prior VTE?: No VTE Risk Level:: Medical - moderate - high VTE Device Contraindication: N/A - Device Ordered VTE Drug Contraindication: Treatment Not Indicated
--- NOTE | 2022-12-22 12:09 | MHC.CLN ---
F/U DIET RX: REGULAR CHOPPED-APPROPRIATE. ENSURE TID TO INCREASE KCALS AND PROMOTE WOUND HEALING. SUPP TO PROVIDE 1050KCALS, 60G PROTEIN. SKIN WITH STAGE II PRESSURE INJURIES TO RIGHT AND LEFT HIP. INTAKE APPEARS VARIABLE. MONITOR PO AND SUPPLEMENT ACCEPTANCE.
--- NOTE | 2022-12-22 13:47 | P.DS_ITS ---
DS: Providers Provider Date of Service: 12/22/22 Date of admission: 12/21/22 04:03 Primary care physician: Norris Muñoz DO Consults: 12/21/22 04:02 Consult to Urology Routine Consulting Provider: Kp Garcia Reason for consultation: hematuria Has provider been notified: No DS: Diagnosis Discharge Diagnosis (1) Hematuria: Status: Acute (2) Moderate protein-calorie malnutrition: Status: Acute (3) Pressure injury of hip, stage 2: Status: Acute DS: Summary Hospital Course Hospital Course: Admission note HPI ?82-year-old male with past medical history of dementia, COPD, AFib, prostate cancer, schizophrenia, comes in from [facility] for hematuria.? Patient is demented at baseline, and yells and answer to my questions.? Therefore history is obtained mostly from ED physician.? It appears that patient was being cleaned at [facility] with the noticed blood? from penis, as well as own urine.? I am u nable to get much review of system but? per triage note [facility] Facility nurse reported patient bleeding and having blood clots from urethra. ? On arrival to the ED patient hemodynamically stable with a heart rate of 115 blood pressure stable Labs are significant for WBC count of 10.3, hemoglobin of 10.7 which is around his baseline, medic of 34.7, potassium 5.2, labs otherwise unremarkable.? Hospital course The patient was admitted for evaluation of hematuria. beleived to be a result of prostate CA and being on Aspirin. noted to have clots with urine. started on CBI with good response as hematuria cleared up. He was seen by urologist who recommended DC on Clark and to follow up as needed in office. blood levels remained stable with no major drop. PAtient was noted to have stage 2 pressure injury in his right hip. local measures applied. Moderate malnutrition was appreciated and supplements were added to him meals. The patient had a quick recovery and did not need to stay 2 nights in the hospital. Hold Aspirin, your PCP to decide when to restart it Keep clark catheter in, follow with urology as outpatient as needed, dr Grullon. Time Spent with Patient Time attestation: Total time managing care of this patient today ____ minutes. Discharge coordination time: Greater than 30 minutes Quality: Safe Use of Opioids Does Pt have an Active Cancer Diagnosis on the Problem List?: No Quality: Stroke Does the patient have a stroke diagnosis?: No Physical Exam Vital Signs: Vital Signs: Last Vital Signs Temp 97.9 F 12/22/22 07:54 Pulse 95 12/22/22 07:54 Resp 16 12/22/22 07:54 BP 101/57 L 12/22/22 07:54 Pulse Ox 98 12/22/22 07:54 O2 Del Method 12/22/22 07:54 BMI result Body Mass Index 18.8 Const: Other: Constitutional : Awake with srimulation, poorly interactive, cachetic, not in distress Neck : Normal inspection, Supple Cardiovascular : RRR, no JVP, no lower extremity edema Respiratory : good bilateral air entry, no crackles, wheezes or rhonchi Gastrointestinal: soft, lax, Normal bowel sounds, Non tender Skin : Warm, Dry, right hip stage 2 pressure injury Neurological : Alert with stimulation & oriented to self , No focal deficit DS: Data Data Completed and Pending Completed studies during hospitalization [Text1]: Procedures Introduction of Vasopressor into Peripheral Vein, Percutaneous Approach (05/15/22) Labs on day of discharge: Laboratory Results - last 24 hr 12/22/22 12/22/22 05:27 05:27 WBC 7.8 RBC 3.79 L Hgb 10.1 L Hct 33.0 L MCV 87.1 MCH 26.6 L MCHC 30.6 L RDW 17.2 H Plt Count 319 MPV 9.6 Absolute Nucleated RBC 0.000 Nucleated RBC % (auto) 0.0 Sodium 141 Potassium 4.3 Chloride 105 Carbon Dioxide 25 Anion Gap 15 BUN 17 H Creatinine 0.71 Estim Creat Clear Calc 61.6 Estimated GFR > 60 Fasting Glucose 71 Calcium 8.8 Preliminary micro results at discharge 12/21/22 03:12 Blood Culture - Preliminary Blood - Venous No growth after 24 hours. 12/21/22 03:11 Blood Culture - Preliminary Blood - Venous No growth after 24 hours. Discharge Plan Discharge Anticipated Discharge Date/Time: 12/22/22 13:42 Patient Disposition: er [facility] Discharge Diagnosis: Hematuria Referrals: Norris Muñoz DO [Primary Care Provider] - 1 Week Discharge Medications: Continued levothyroxine 100 mcg tablet 1 tab PO DAILY@0630 acetaminophen 325 mg Tablet 650 mg PO Q4H PRN (Reason: PAIN/TEMP) atorvastatin 20 mg Tablet 20 mg PO BEDTIME bisacodyl 10 mg Suppository 10 mg NE MOWEFR gabapentin 100 mg Capsule 100 mg PO BID haloperidol decanoate [Haldol Decanoate] 50 mg/mL Solution 10 mg IM Q14D lactulose 10 gram/15 mL Solution 20 g PO BID esomeprazole magnesium [Nexium] 40 mg Capsule,Delayed Release(Dr/Ec) 40 mg PO BID@0630,1630 multivitamin Tablet 1 tab PO DAILY propranolol 20 mg Tablet 20 mg PO TID sennosides [senna] 8.6 mg Tablet 8.6 mg PO DAILY PRN (Reason: Constipation) sennosides-docusate sodium [Senna Plus] 8.6-50 mg Tablet 2 tab PO BID tamsulosin 0.4 mg Capsule 0.4 mg PO DAILY@2100 tramadol 50 mg Tablet 50 mg PO Q8H Rx Instructions: GIVE 8 HOURS APART FROM SCHEDULED DOSE metoclopramide HCl 10 mg Tablet 10 mg PO BIDAC levetiracetam 100 mg/mL Solution 500 mg PO BID acidophilus-pectin, citrus 100 million cell-10 mg Capsule 1 cap PO DAILY Rx Instructions: take with a meal polyethylene glycol 3350 17 gram Powder In Packet 17 g PO DAILY Qty: 30 0RF bisacodyl 10 mg Suppository 10 mg NE DAILY PRN (Reason: Constipation) Rx Instructions: if senna is ineffetive bisacodyl 5 mg Tablet 5 mg PO BEDTIME chlorpromazine 50 mg Tablet 50 mg PO BID Fleet Enema 19-7 gram/118 mL Enema 118 ml NE DAILY PRN (Reason: Constipation) Rx Instructions: if bisacodyl suppository is ineffective tramadol 50 mg Tablet 50 mg PO BID PRN (Reason: Moderate Pain (Scale Score 5-6)) nutritional supplements Powder 1 ea PO BID Santyl 250 unit/gram Ointment 1 appl TOPICAL DAILY Protocol: Apply to: Apply to: left hip prior to dressing change finasteride 5 mg tablet 5 mg PO DAILY 90 Days Qty: 90 3RF Held aspirin 81 mg Capsule 81 mg PO DAILY Hold Instructions: at [facility] to decide when to restart if needed Discharge Orders: Discharge Order (Routine); Ordered 12/22/22 Ordered By: Matthew Nunez Diet: Advance to usual diet Activity on Discharge: As tolerated Stand Alone Forms: Patient Portal Discharge page Care Plan Goals: Read below Health Concerns: Read below Plan of Treatment: Read below Assessment: Admitted for bloody urine. Aspirin held. Catherer placed and bladder was irrigated with good response as you were seen by urologist. Hold Aspirin, your PCP to decide when to restart it Keep clark catheter in, follow with urology as outpatient as needed, dr Grullon. Discharge Date/Time: 12/22/22 17:24
--- NOTE | 2022-12-22 13:56 | PC.NURSE ---
CBI clamped since 0700. No bleeding all shift. CBI port caped. pt to be discharged back to [facility] with eduardo
--- NOTE | 2022-12-22 14:44 | MHC.CM.PN ---
Addendum entered by Sofie Tom, RN 12/22/22 15:22: NO RESPONSE IN [facility] CALL TO [facility] FACILITY AND SPOKE TO RNSANDHYA. SANDHYA AWARE OF PATIENT'S RETURN TODAY PLAN IS [facility]SPORT FOR 1630 RN AND UNIT AWARE CALL TO BE PLACED TO ELIA MUNROE AT [facility] Original Note[facility] [place] [facility] RET[facility]. CM AWAITING RESPONSE
== END 2022-12-22 17:24 | disposition skilled nursing facility (03) | DRG 696 ==
LOC: HO.ED 12-21 02:51 → HO.EDOVER 12-21 04:08 → HO.S3 12-21 06:46
PROVIDERS: Internal Medicine; Admitting Provider Internal Medicine; Emergency Provider Emergency Medicine Emergency Medical Services; PCP Hospitalist; Visit Provider Student in an Organized Health Care Education/Training Program
DX: R31.0 Gross hematuria (principal); E44.0 Moderate protein-calorie malnutrition; F03.918 Unspecified dementia, unspecified severity, with other behavioral disturbance; Z68.1 Body mass index [BMI] 19.9 or less, adult; T39.015A Adverse effect of aspirin, initial encounter; N13.8 Other obstructive and reflux uropathy; J44.9 Chronic obstructive pulmonary disease, unspecified; I48.0 Paroxysmal atrial fibrillation; E03.9 Hypothyroidism, unspecified; C61 Malignant neoplasm of prostate; L89.212 Pressure ulcer of right hip, stage 2; F20.9 Schizophrenia, unspecified; N40.1 Benign prostatic hyperplasia with lower urinary tract symptoms; R33.8 Other retention of urine; Z20.822 Contact with and (suspected) exposure to COVID-19; Z79.82 Long term (current) use of aspirin; Z79.890 Hormone replacement therapy; Z79.899 Other long term (current) drug therapy
CPT/HCPCS: 36415; 80048; 80053; 81001; 83605; 83690; 85025; 85027; 85610; 85730; 87040; 87502; 87635; 99285; C1758; J0696; J1200

== ENCOUNTER → 2023-02-01 09:53 | Outpatient (BNVA) | payer MEDICARE, MEDICAID, SELFPAY | PROVIDERS: PCP Hospitalist; Visit Provider Urology ==

== ENCOUNTER 2023-05-05 09:55 | Outpatient (AMB) | payer MEDICARE, MEDICAID, SELFPAY ==
--- NOTE | 2023-05-05 10:11 | MHC.OFFVIS ---
Intake Intake Visit Reasons: 3M PSA(set) Intake Note: Patient is present for Follow Up PSA Urology Med: Finasteride, Tamsulosin Antibiotic Allergy: None Blood Thinner: Aspirin Pharmacy: Allergies No Known Allergies [No Known Allergies*] Allergy (Verified 02/01/23 09:55) HPI HPI Comments History of Present Illness Details Juan is a pleasant male. He is a patient Dr. Muñoz. He is seen for following urologic conditions - elevated PSA - urinary urgency and frequency [facility] resident Discussed with nurse PSA continues Slow fall 6 month follow-up Prostate cancer Prior biopsy with Jon score 9 PSA followed 06/22 11.6, 12/22 10.6, 07/24 5.8. 01/23 3.6, 04/24 3.3 Finasteride started December 2021 Follow-up 6 months PSA - televisit [facility] Medical History Atrial fibrillation BPH loc w urin obs/LUTS COPD (chronic obstructive pulmonary disease) Dementia Dementia Malignant neoplasm of prostate Moderate protein-calorie malnutrition Occipital infarction Prostate cancer Schizophrenia Urinary retention Urinary tract infection Family History Other Family history unknown Social History Household Members: Unknown / Unable to assess Housing: Other Housing Other:: Per notes: [facility] Do you presently have visiting nurse or other home services: Yes Unable to assess alcohol history related to: Unable to respond Alcohol intake: unknown Patient Tobacco Use Status: Tobacco use Unknown Second Hand Smoke Exposure: No Advance Directives Date on File: 05/18/22 service: No Current occupational status: disabled Review of Systems Const Denies chills and Denies fever(s) Card Reports no additional complaints and Denies syncope Resp Denies cough GI Denies abdominal pain and Denies heartburn Reports as per HPI and Denies change in libido Neuro Denies syncope Psych Denies change in libido Endo Denies change in libido Physical Exam Const General: cooperative, healthy appearing, comfortable and no acute distress Orientation/consciousness: patient oriented x3 HEENT Face and sinus: Yes normal facial exam Mouth: moist mucous membranes Neck Neck: Yes normal visual inspection, Yes full ROM and Yes trachea midline Chest Chest palpation & inspection: normal inspection of the chest Resp Effort & Inspection: normal respiratory effort, able to speak in complete sentences and no respiratory distress GI Inspection: Yes normal to inspection Back/Spine/Pelvis Cervical Spine: normal cervical lordosis Thoracic/Lumbar Spine: thoracic and lumbar spine normal to inspection Skin General skin exam: no rashes or lesions noted Neuro General: patient oriented x3, gait normal, tone normal and moves all extremities Extrem General: Yes normal to inspection and Yes capillary refill normal Assessment & Plan Assessment & Plan (1) Malignant neoplasm of prostate: Code(s): C61 - Malignant neoplasm of prostate Plan Six month follow-up PSA Patient Instructions: Imaging studies, laboratory and physical exam results were discussed and reviewed in detail. No major barriers to patient understanding were identified. An opportunity to ask questions regarding the treatment plan was provided. All questions were answered. The patient expressed understanding and agreement with the above treatment plan. The patient is aware they should contact our office by phone for worsening of their current condition or the appearance of new urologic symptoms. Compliance is encouraged with any medications and followup testing that is ordered. It is a privilege to participate in the urologic care of your patient. If you have any questions or concerns regarding treatment for the above conditions, or other urologic issues, please do not hesitate to contact me. The office telephone contact is [phone]. This note is constructed using voice recognition software. While every effort has been made to ensure accuracy business analytics analyst errors may have been included. Yours sincerely, Dr Irineo Powell MD, MA[facility] - Urology Providers of Expert, Compassionate Care for the Genitourinary System Coding Level of Care Code Est Pt Level 3 (76239) Diagnoses Malignant neoplasm of prostate C61
== END 2023-05-05 11:49 | disposition home or self-care (01) ==
LOC: HO.HUSH 09:55
PROVIDERS: PCP Hospitalist; Visit Provider Urology
DX: C61 Malignant neoplasm of prostate (principal)
CPT/HCPCS: 99213

== ENCOUNTER → 2023-05-05 09:55 | Outpatient (BNVA) | payer MEDICARE, MEDICAID, SELFPAY | PROVIDERS: PCP Hospitalist; Visit Provider Urology | DX: C61 Malignant neoplasm of prostate (principal) | CPT/HCPCS: 99212 ==

== ENCOUNTER 2023-05-29 19:08 | Inpatient (IN) | payer MEDICARE, MEDICAID, SELFPAY ==
--- NOTE | ~2023-05-29 | XR_ITS ---
EXAMINATION: XR CHEST CLINICAL INFORMATION: Altered mental status, combative. COMPARISON: 11/15/[address] scan dated 11/12/2022. TECHNIQUE: Frontal view of the chest was obtained. FINDINGS: Kyphotic positioning is suboptimal. Asymmetric increased right perihilar markings are seen. A 0.9 cm nodule overlying of the right mid chest is noted. The heart and mediastinal structures are unremarkable. XR/XR chest 1V IMPRESSION: Asymmetric increased right perihilar markings may be projectional given the kyphotic positioning. Right perihilar infiltrates cannot be excluded. 0.9 cm nodule overlying right mid chest does not show a correlating abnormality on the previous CT scan. A new nodule cannot be excluded. A repeat chest CT scan should be considered when possible.
[2023-05-29 19:18] VITALS: BP 108/60; BP 123/64; PULSE 66; PULSE 74; TEMP 36.5; O2SAT 89; O2SAT 95; BMI 22.6
--- NOTE | 2023-05-29 19:30 | PC.NURSE ---
Addendum entered by Randa Gaffney 05/29/23 21:07: pt applied to [employer] - nsr on the [employer]. Original Note: pt comes in via [facility] from [facility], pt came in d/t respiratory distress/tachypnea/hypoxia. pt had possible aspiration at dinner but according to ems there was not much more context to the situation. pt verbalizes no pain. pt is contracted on all 4 extremities. pt was incontinent so provider and this rn changed pt over and cleaned him up. call ayon placed within reach.
--- NOTE | 2023-05-29 19:32 | ECG_ITS ---
Test Reason : DYSPNEA Blood Pressure : / mmHG Vent. Rate : 077 BPM Atrial Rate : 077 BPM P-R Int : 142 ms QRS Dur : 078 ms QT Int : 428 ms P-R-T Axes : 065 -37 -17 degrees QTc Int : 484 ms Poor data quality, interpretation may be adversely affected Normal sinus rhythm Left axis deviation Abnormal ECG When compared with ECG of 15-NOV-2022 11:19, Criteria for Anterior infarct are no longer Present Criteria for Anterolateral infarct are no longer Present Nonspecific T wave abnormality has replaced inverted T waves in Anterior leads Referred By: Madison Rooney Electronically Signed By:SERAFIN SUNG
[2023-05-29 19:35] VITALS: BP 123/64; PULSE 83; RESP 18; TEMP 36.5; O2SAT 92
--- NOTE | 2023-05-29 19:38 | ED_ITS ---
HPI - SOB/Dyspnea General Chief Complaint: Dyspnea Stated Complaint: RESPIRATORY DISTRESS Time Seen by Provider: 05/29/23 19:17 Source: patient and EMS Mode of arrival: EMS Limitations: altered mental status History of Present Illness HPI Narrative: 83 yo male from [facility] with history of dementia, AFib on aspirin, seizures, BPH here with concern for hypoxia, shortness of breath. There may have been an aspiration episode. History of present illness is limited. Patient unable to provide any additional information due to baseline dementia. Per EMS patient was 80% on room air on their arrival Related Data Home Medications Medication Instructions Recorded Confirmed acetaminophen 325 mg tablet 650 mg PO Q4H PRN PAIN/TEMP 12/30/21 05/29/23 atorvastatin 20 mg tablet 20 mg PO BEDTIME 12/30/21 05/29/23 bisacodyl 10 mg rectal suppository 10 mg TX MOWEFR 12/30/21 05/29/23 esomeprazole magnesium 40 mg 40 mg PO BID@0630,1630 12/30/21 05/29/23 capsule,delayed release (Nexium) gabapentin 100 mg capsule 100 mg PO BID 12/30/21 05/29/23 haloperidol decanoate 50 mg/mL 10 mg IM Q14D 12/30/21 05/29/23 intramuscular solution (Haldol Decanoate) lactulose 10 gram/15 mL oral 20 g PO BID 12/30/21 05/29/23 solution multivitamin 1 tab PO DAILY 12/30/21 05/29/23 propranolol 20 mg tablet 20 mg PO TID 12/30/21 05/29/23 sennosides 8.6 mg tablet (senna) 8.6 mg PO DAILY PRN Constipation 12/30/21 05/29/23 sennosides 8.6 mg-docusate sodium 2 tab PO BID 12/30/21 05/29/23 50 mg tablet (Senna Plus) tamsulosin 0.4 mg capsule 0.4 mg PO DAILY@2100 12/30/21 05/29/23 tramadol 50 mg tablet 50 mg PO Q8H 12/30/21 05/29/23 metoclopramide HCl 10 mg tablet 10 mg PO BIDAC 02/06/22 05/29/23 levetiracetam 100 mg/mL oral 500 mg PO BID 02/13/22 05/29/23 solution levothyroxine 100 mcg tablet 1 tab PO DAILY@0630 05/15/22 05/29/23 acidophilus 100 million 1 cap PO DAILY 11/15/22 05/29/23 cell-pectin, citrus 10 mg capsule aspirin 81 mg capsule 81 mg PO DAILY 12/21/22 05/29/23 bisacodyl 10 mg rectal suppository 10 mg TX DAILY PRN Constipation 12/21/22 05/29/23 bisacodyl 5 mg tablet 5 mg PO BEDTIME 12/21/22 05/29/23 chlorpromazine 50 mg tablet 50 mg PO BID 12/21/22 05/29/23 collagenase clostridium histo. 250 1 appl topical DAILY 12/21/22 05/29/23 unit/gram topical ointment (Santyl) nutritional supplements 1 ea PO BID 12/21/22 05/29/23 sodium phosphates 19 gram-7 118 ml TX DAILY PRN Constipation 12/21/22 05/29/23 gram/118 mL enema (Fleet Enema) tramadol 50 mg tablet 50 mg PO BID PRN Moderate Pain 12/21/22 05/29/23 (Scale Score 5-6) Previous Rx's Medication Instructions Recorded finasteride 5 mg tablet 5 mg PO DAILY 90 days #90 tabs 07/30/22 polyethylene glycol 3350 17 gram 17 g PO DAILY #30 ea 11/18/22 oral powder packet Allergies Allergy/AdvReac Type Severity Reaction Status Date / Time No Known Allergies Allergy Verified 05/29/23 19:18 [No Known Allergies*] Review of Systems Review of Systems: Yes all other systems are reviewed and are negative and Unobtainable due to mental status Neurologic: Reports confusion Psychiatric: Psychiatric: Reports confusion [facility] Past Medical History Attestation statement: The following information was validated with the patient. Source: old records reviewed and nursing notes reviewed Medical History Atrial fibrillation BPH loc w urin obs/LUTS COPD (chronic obstructive pulmonary disease) Dementia Dementia Malignant neoplasm of prostate Moderate protein-calorie malnutrition Occipital infarction Prostate cancer Schizophrenia Urinary retention Urinary tract infection Family History Family History Other Family history unknown Social History Social History Household Members: Unknown / Unable to assess Housing: Other Housing Other:: Per notes: [facility] Do you presently have visiting nurse or other home services: Yes Unable to assess alcohol history related to: Unable to respond Alcohol intake: unknown Patient Tobacco Use Status: Tobacco use Unknown Second Hand Smoke Exposure: No Use of substances other than those prescribed or required for medical reasons: Unknown Advance Directives: Yes Advance Directives on File: Yes Advance Directives Date on File: 05/18/22 service: No Current occupational status: disabled Physical Exam Vital Signs: Vital Signs: Last Vital Signs Temp 97.7 F 05/29/23 19:35 Pulse 83 05/29/23 19:35 Resp 18 05/29/23 19:35 BP 123/64 05/29/23 19:35 Pulse Ox 92 05/29/23 19:35 O2 Del Method Nasal Cannula 05/29/23 19:35 O2 Flow Rate 2 05/29/23 19:35 BMI result Body Mass Index 22.6 Const: General: alert and confusion Orientation/consciousness: confusion Limitations: altered mental status HEENT: Head: Yes normal to inspection Ears: hearing grossly normal bilaterally General nose exam: Normal external nose present Face and sinus: Yes normal facial exam Mouth: Normal oral and palatal mucosa present Throat: Yes posterior oropharynx normal Eyes: General: appearance normal, both eyes and all related structures Pupils: Equal, round and reactive pupils present Neck: Neck: Yes normal visual inspection Chest: Chest palpation & inspection: normal inspection of the chest Resp: Effort & Inspection: normal respiratory effort Auscultation: clear to auscultation bilaterally Cardio: Rate: regular rate Rhythm: regular rhythm Peripheral pulses: Peripheral pulses 2+ throughout GI: Inspection: Yes normal to inspection Palpation (GI): Soft to palpation and nontender Auscultation: normal bowel sounds Back/Spine/Pelvis: Thoracic/Lumbar Spine: thoracic and lumbar spine normal to inspection Skin: General skin exam: no rashes or lesions noted Neuro: Other: +hypertonia of LE, contracted General: confusion Cranial nerves: Yes Equal, round and reactive pupils present Extrem: General: Yes normal to inspection Course Course Course Narrative: Chest x-ray concerning for aspiration pneumonia. Patient is requiring supplemental oxygen. Patient will be admitted to the medicine service for further management Medications Administered Discontinued Medications Generic Name Dose Route Start Last Admin Trade Name Freq PRN Reason Stop Dose Admin Cefepime HCl 2 gm/ Sodium 50 mls @ 100 mls/hr 05/29/23 19:33 05/29/23 21:24 Chloride IV 05/29/23 20:02 Infused ONCE ONE Infusion Medical Decision Making Medical Decision Making [facility] Narrative: 83-year-old male from a sn[facility] with a past medical history of dementia, AFib, seizures, BPH presents the ER with concern for hypoxia and difficulty breathing with possible aspiration episode For EMS patient was hypoxic with room air saturation of 80% On arrival to the ER patient has room-air saturation of 89%. He is unable to write any history of present illness due to baseline dementia. Will need labs including blood cultures and lactic acid, COVID and flu testing, chest x-ray. At this time infection suspected. Antibiotics ordered Differential Diagnosis Differential Diagnoses: The differential diagnosis associated with the presentation includes Aspiration pneumonia PE-low concern with no clinical findings concerning for dvt Admission/Observation Consideration of admission/observation: Escalation of care including admission/observation considered hypoxia with concern for aspiration PNA requiring supplemental oxygen and anti biotic Consult Healthcare Provider Management of the patient was discussed with: Hospitalist Spoke to Dr. Tai who accepted admission Lab Data [facility] Lab Attestation statement: I reviewed the patient's lab results. Reviewed labs which are unremarkable 05/29/23 20:05 05/29/23 20:05 Labs: Lab Results 05/29/23 05/29/23 05/29/23 Range/Units 20:05 20:05 20:05 WBC 7.3 (4.8-10.8) X10*3/uL RBC 4.62 D (4.60-5.80) X10*6/uL Hgb 11.1 L (14.0-18.0) g/dl Hct 37.6 L (42.0-52.0) % MCV 81.4 (80.0-98.0) fL MCH 24.0 L (27.0-33.0) pg MCHC 29.5 L (31.0-36.0) g/dl RDW 20.8 H (11.0-16.0) % Plt Count 356 (160-400) X10*3/uL MPV 9.1 L (9.4-12.4) fL Immature Gran % (Auto) 0.3 (0.0-0.4) % Neut % (Auto) 65.6 (45-73) % Lymph % (Auto) 20.0 (20-40) % [place] % (Auto) 7.5 (2-11) % Eos % (Auto) 6.1 H (0-4) % Baso % (Auto) 0.5 (0-2) % Lymph # (Auto) 1.5 (1.2-4.9) X10*3/uL [place] # (Auto) 0.6 (0.1-1.2) X10*3/uL Eos # (Auto) 0.5 H (0.0-0.4) X10*3/uL Baso # (Auto) 0.0 (0.0-0.2) X10*3/uL Abs Immat Gran (auto) 0.02 (0.00-0.03) X10*3/uL Absolute Neuts (auto) 4.8 (2.0-8.3) x10*3/uL Absolute Nucleated RBC 0.000 (0.0-0.012) X10*3/uL Nucleated RBC % (auto) 0.0 (0.0-0.2) /100WBC PT (11.1-13.3) SEC INR (0.9-1.1) Sodium 142 (135-145) mmol/L Potassium 4.7 (3.3-5.1) mmol/L Chloride 108 (96-108) mmol/L Carbon Dioxide 26 (22-29) mmol/L Anion Gap 13 (12-20) BUN 29 H (9-16) mg/dL Creatinine 0.89 (0.5-1.4) mg/dL Estim Creat Clear Calc 54.5 Estimated GFR > 60 Random Glucose 93 (60-115) mg/dL Lactic Acid (0.5-2.0) mmol/L Calcium 9.8 D (8.4-10.2) mg/dL Magnesium 2.1 (1.6-2.6) mg/dL Total Bilirubin 0.2 (0.0-1.0) mg/dL Direct Bilirubin < 0.2 (0.0-0.5) mg/dL AST 33 (5-37) U/L ALT 25 (0-40) U/L Alkaline Phosphatase 117 (39-117) U/L Troponin I High Sens < 2.7 (<3.5-35.0) ng/L Total Protein 8.5 H (6.5-8.0) g/dL Albumin 3.8 (3.5-5.0) g/dL COVID-19 ([facility]) (Negative) COVID-19 Clin Com Influenza Type A ([facility]) (Negative) Influenza Type B ([facility]) (Negative) Influenza A & B Note 05/29/23 05/29/23 05/29/23 Range/Units 20:05 20:05 20:05 WBC (4.8-10.8) X10*3/uL RBC (4.60-5.80) X10*6/uL Hgb (14.0-18.0) g/dl Hct (42.0-52.0) % MCV (80.0-98.0) fL MCH (27.0-33.0) pg MCHC (31.0-36.0) g/dl RDW (11.0-16.0) % Plt Count (160-400) X10*3/uL MPV (9.4-12.4) fL Immature Gran % (Auto) (0.0-0.4) % Neut % (Auto) (45-73) % Lymph % (Auto) (20-40) % [place] % (Auto) (2-11) % Eos % (Auto) (0-4) % Baso % (Auto) (0-2) % Lymph # (Auto) (1.2-4.9) X10*3/uL [place] # (Auto) (0.1-1.2) X10*3/uL Eos # (Auto) (0.0-0.4) X10*3/uL Baso # (Auto) (0.0-0.2) X10*3/uL Abs Immat Gran (auto) (0.00-0.03) X10*3/uL Absolute Neuts (auto) (2.0-8.3) x10*3/uL Absolute Nucleated RBC (0.0-0.012) X10*3/uL Nucleated RBC % (auto) (0.0-0.2) /100WBC PT 12.5 (11.1-13.3) SEC INR 1.0 (0.9-1.1) Sodium (135-145) mmol/L Potassium (3.3-5.1) mmol/L Chloride (96-108) mmol/L Carbon Dioxide (22-29) mmol/L Anion Gap (12-20) BUN (9-16) mg/dL Creatinine (0.5-1.4) mg/dL Estim Creat Clear Calc Estimated GFR Random Glucose (60-115) mg/dL Lactic Acid 1.5 (0.5-2.0) mmol/L Calcium (8.4-10.2) mg/dL Magnesium (1.6-2.6) mg/dL Total Bilirubin (0.0-1.0) mg/dL Direct Bilirubin (0.0-0.5) mg/dL AST (5-37) U/L ALT (0-40) U/L Alkaline Phosphatase (39-117) U/L Troponin I High Sens (<3.5-35.0) ng/L Total Protein (6.5-8.0) g/dL Albumin (3.5-5.0) g/dL COVID-19 ([facility]) (Negative) COVID-19 Clin Com Influenza Type A ([facility]) Negative (Negative) Influenza Type B ([facility]) Negative (Negative) Influenza A & B Note See Note 05/29/23 Range/Units 20:05 WBC (4.8-10.8) X10*3/uL RBC (4.60-5.80) X10*6/uL Hgb (14.0-18.0) g/dl Hct (42.0-52.0) % MCV (80.0-98.0) fL MCH (27.0-33.0) pg MCHC (31.0-36.0) g/dl RDW (11.0-16.0) % Plt Count (160-400) X10*3/uL MPV (9.4-12.4) fL Immature Gran % (Auto) (0.0-0.4) % Neut % (Auto) (45-73) % Lymph % (Auto) (20-40) % [place] % (Auto) (2-11) % Eos % (Auto) (0-4) % Baso % (Auto) (0-2) % Lymph # (Auto) (1.2-4.9) X10*3/uL [place] # (Auto) (0.1-1.2) X10*3/uL Eos # (Auto) (0.0-0.4) X10*3/uL Baso # (Auto) (0.0-0.2) X10*3/uL Abs Immat Gran (auto) (0.00-0.03) X10*3/uL Absolute Neuts (auto) (2.0-8.3) x10*3/uL Absolute Nucleated RBC (0.0-0.012) X10*3/uL Nucleated RBC % (auto) (0.0-0.2) /100WBC PT (11.1-13.3) SEC INR (0.9-1.1) Sodium (135-145) mmol/L Potassium (3.3-5.1) mmol/L Chloride (96-108) mmol/L Carbon Dioxide (22-29) mmol/L Anion Gap (12-20) BUN (9-16) mg/dL Creatinine (0.5-1.4) mg/dL Estim Creat Clear Calc Estimated GFR Random Glucose (60-115) mg/dL Lactic Acid (0.5-2.0) mmol/L Calcium (8.4-10.2) mg/dL Magnesium (1.6-2.6) mg/dL Total Bilirubin (0.0-1.0) mg/dL Direct Bilirubin (0.0-0.5) mg/dL AST (5-37) U/L ALT (0-40) U/L Alkaline Phosphatase (39-117) U/L Troponin I High Sens (<3.5-35.0) ng/L Total Protein (6.5-8.0) g/dL Albumin (3.5-5.0) g/dL COVID-19 ([facility]) Negative (Negative) COVID-19 Clin Com See Note Influenza Type A ([facility]) (Negative) Influenza Type B ([facility]) (Negative) Influenza A & B Note Independent Interpretation I performed an independent interpretation of an: EKG and Plain X-Ray Interpretation: I independently reviewed the EKG which shows normal sinus rhythm with a rate 80, normal TX, normal QRS, normal QT I independently viewed the chest x-ray and agree with the radiology report Radiology Impression Discussion of test interpretation with radiology: I have reviewed the radiologist's reading. Radiologist Impression: [id number] [place] [id number] XRay Report Signed Patient: Juan Sanders MR#: [id number] : 1940 Acct:[id number] Age/Sex: 83 / M ADM Date: 05/29/23 Loc: HO.ED Attending Dr: Ordering Physician: Madison Buckley NP Date of Service: 05/29/23 Procedure(s): XR chest 1V Accession Number(s): [id number] cc: Madison Buckley NP~ EXAMINATION: XR CHEST CLINICAL INFORMATION: Altered mental status, combative. COMPARISON: 11/15/[address] scan dated 11/12/2022. TECHNIQUE: Frontal view of the chest was obtained. FINDINGS: Kyphotic positioning is suboptimal. Asymmetric increased right perihilar markings are seen. A 0.9 cm nodule overlying of the right mid chest is noted. The heart and mediastinal structures are unremarkable. XR/XR chest 1V IMPRESSION: Asymmetric increased right perihilar markings may be projectional given the kyphotic positioning. Right perihilar infiltrates cannot be excluded. ? 0.9 cm nodule overlying right mid chest does not show a correlating abnormality on the previous CT scan. A new nodule cannot be excluded. A repeat chest CT scan should be considered when possible. Independent Historian Clinical information obtained from an independent historian. History obtained from or confirmed by: EMS Critical Care Time Critical Care Time Critical Care Time: Yes Total Critical Care Time: 60 Attestation: Review of outpatient records, review of inpatient records, hypoxia requiring supplemental oxygen, aspiration pneumonia requiring discussion with hospitalist and admission Discharge Plan Discharge Clinical Impression: Aspiration pneumonia, Hypoxia Patient Disposition: Admitted As Inpatient Prescriptions: No Action levothyroxine 100 mcg tablet 1 tab PO DAILY@0630 acetaminophen 325 mg Tablet 650 mg PO Q4H PRN (Reason: PAIN/TEMP) atorvastatin 20 mg Tablet 20 mg PO BEDTIME bisacodyl 10 mg Suppository 10 mg TX MOWEFR Rx Instructions: mon,wed,fri gabapentin 100 mg Capsule 100 mg PO BID haloperidol decanoate [Haldol Decanoate] 50 mg/mL Solution 10 mg IM Q14D lactulose 10 gram/15 mL Solution 20 g PO BID esomeprazole magnesium [Nexium] 40 mg Capsule,Delayed Release(Dr/Ec) 40 mg PO BID@0630,1630 multivitamin Tablet 1 tab PO DAILY propranolol 20 mg Tablet 20 mg PO TID sennosides [senna] 8.6 mg Tablet 8.6 mg PO DAILY PRN (Reason: Constipation) sennosides-docusate sodium [Senna Plus] 8.6-50 mg Tablet 2 tab PO BID tamsulosin 0.4 mg Capsule 0.4 mg PO DAILY@2100 tramadol 50 mg Tablet 50 mg PO Q8H Rx Instructions: GIVE 8 HOURS APART FROM SCHEDULED DOSE metoclopramide HCl 10 mg Tablet 10 mg PO BIDAC levetiracetam 100 mg/mL Solution 500 mg PO BID acidophilus-pectin, citrus 100 million cell-10 mg Capsule 1 cap PO DAILY Rx Instructions: take with a meal polyethylene glycol 3350 17 gram Powder In Packet 17 g PO DAILY Qty: 30 0RF aspirin 81 mg Capsule 81 mg PO DAILY Hold Instructions: MD at [facility] to decide when to restart if needed bisacodyl 10 mg Suppository 10 mg TX DAILY PRN (Reason: Constipation) Rx Instructions: if senna is ineffetive bisacodyl 5 mg Tablet 5 mg PO BEDTIME chlorpromazine 50 mg Tablet 50 mg PO BID Fleet Enema 19-7 gram/118 mL Enema 118 ml TX DAILY PRN (Reason: Constipation) Rx Instructions: if bisacodyl suppository is ineffective tramadol 50 mg Tablet 50 mg PO BID PRN (Reason: Moderate Pain (Scale Score 5-6)) nutritional supplements Powder 1 ea PO BID Santyl 250 unit/gram Ointment 1 appl TOPICAL DAILY Protocol: Apply to: Apply to: left hip prior to dressing change finasteride 5 mg tablet 5 mg PO DAILY 90 Days Qty: 90 3RF
[2023-05-29 20:27] LABS: Lactic Acid 1.5 mmol/L (0.5-2.0)
[2023-05-29 20:29] LABS: Prothrombin Time 12.5 SEC (11.1-13.3)
[2023-05-29 20:35] LABS: Alanine Aminotransferase 25 U/L (0-40); Albumin Level 3.8 g/dL (3.5-5.0); Alkaline Phosphatase 117 U/L (39-117); Anion Gap 13 (12-20); Aspartate Amino Transferase 33 U/L (5-37); Bilirubin Direct < 0.2 mg/dL (0.0-0.5); Bilirubin Total 0.2 mg/dL (0.0-1.0); Blood Urea Nitrogen 29 mg/dL (9-16); Calcium 9.8 mg/dL (8.4-10.2); Carbon Dioxide 26 mmol/L (22-29); Chloride 108 mmol/L (96-108); Creatinine Clr Calc Pharmacy 54.5; Estimated Glomerular Filt Rate > 60; Glucose Random 93 mg/dL (60-115); Magnesium 2.1 mg/dL (1.6-2.6); Potassium 4.7 mmol/L (3.3-5.1); Sodium 142 mmol/L (135-145); Total Protein 8.5 g/dL (6.5-8.0)
[2023-05-29 20:46] LABS: Troponin-I High Sensitivity < 2.7 ng/L (<3.5-35.0)
[2023-05-29] MEDS: cefEPime HCl 2 GM in 0.9 % Sodium Chloride 50 ML IV (20:50)
[2023-05-29 20:57] LABS: MANUAL DIFF FLAG NO
[2023-05-29 20:58] LABS: COVID-19 Test Negative (Negative); IDNOW Serial# 08D9AD1C; IDNOW Serial# 9DB6401D; Influenza A Negative (Negative); Influenza B2 Negative (Negative)
[2023-05-29 21:02] LABS: Basophils Percent Auto 0.5 % (0-2); Eosinophils Absolute Auto 0.5 X10*3/uL (0.0-0.4); Eosinophils Percent Auto 6.1 % (0-4); Hematocrit 37.6 % (42.0-52.0); Hemoglobin 11.1 g/dl (14.0-18.0); Imm Gran Abs Auto 0.02 X10*3/uL (0.00-0.03); Imm Gran Pct Auto 0.3 % (0.0-0.4); Lymphocytes Absolute Auto 1.5 X10*3/uL (1.2-4.9); Mean Corpuscular HGB Conc 29.5 g/dl (31.0-36.0); Mean Corpuscular Volume 81.4 fL (80.0-98.0); Mean Platelet Volume 9.1 fL (9.4-12.4); Monocytes Absolute Auto 0.6 X10*3/uL (0.1-1.2); Monocytes Percent Auto 7.5 % (2-11); Neutrophils Absolute Auto 4.8 x10*3/uL (2.0-8.3); Neutrophils Percent Auto 65.6 % (45-73); Platelet Count 356 X10*3/uL (160-400); Red Blood Count 4.62 X10*6/uL (4.60-5.80); Red Cell Distribution Width 20.8 % (11.0-16.0); White Blood Count 7.3 X10*3/uL (4.8-10.8)
--- NOTE | 2023-05-29 21:06 | PC.NURSE ---
20g IV placed in the right wrist w/o complications - labs drawn and sent to lab. IV abx hung and administered per provider order. call ayon placed within reach.
--- NOTE | 2023-05-29 21:35 | ECG_ITS ---
Test Reason : CHEST WALL PAIN Blood Pressure : / mmHG Vent. Rate : 080 BPM Atrial Rate : 080 BPM P-R Int : 144 ms QRS Dur : 082 ms QT Int : 380 ms P-R-T Axes : 067 -02 014 degrees QTc Int : 438 ms Normal sinus rhythm Normal ECG When compared with ECG of 29-MAY-2023 21:30, QRS axis Shifted right Referred By: Claudio Hdz Electronically Signed By:SERAFIN SUNG
--- NOTE | 2023-05-29 23:32 | PM.IMHP ---
History of Present Illness Date of Service: 05/29/23 Chief Complaint: SOB 83-year-old male a resident of [facility] with past medical history of AFib, COPD, advanced dementia, prostate cancer, schizophrenia, comes into the hospital after possible aspiration episode at [facility]. History is obtained from EMR as well as ED provider as patient unable to give much history due to mental in clinical status. EMS was called with complaints of respiratory distress, tachypnea, hypoxia. EMS found the patient to be in the 80s, and patient remained in the 80s during transport. On arrival to the ED patient was on 15 L of non-rebreather. There was a report from [facility] the patient may have had an aspiration episode during dinner but no further details were given. Unable to obtain review of system Arrival to the ED patient's other vitals stable Labs are significant for WBC count of 13.3, hematocrit 36.7, labs otherwise unremarkable Chest x-ray shows asymmetric increased right perihilar markings may be projectional versus infiltrate Patient will be admitted for further management Review of Systems Review of Systems: Yes all other systems are reviewed and are negative [facility] Medical History Atrial fibrillation BPH loc w urin obs/LUTS COPD (chronic obstructive pulmonary disease) Dementia Dementia Malignant neoplasm of prostate Moderate protein-calorie malnutrition Occipital infarction Prostate cancer Schizophrenia Urinary retention Urinary tract infection Family History Other Family history unknown Social History Household Members: Unknown / Unable to assess Housing: Other Housing Other:: Per notes: [facility] Do you presently have visiting nurse or other home services: Yes Unable to assess alcohol history related to: Unable to respond Alcohol intake: unknown Patient Tobacco Use Status: Tobacco use Unknown Second Hand Smoke Exposure: No Use of substances other than those prescribed or required for medical reasons: Unknown Advance Directives: Yes Advance Directives on File: Yes Advance Directives Date on File: 05/18/22 service: No Current occupational status: disabled Meds Allergies Allergy/AdvReac Type Severity Reaction Status Date / Time No Known Allergies Allergy Verified 05/29/23 19:18 [No Known Allergies*] Active Medications: Current Medications Acetaminophen (Acetaminophen 325 Mg Tablet) 650 mg PO Q6H PRN PRN Reason: Pain, Mild (Pain Scale 1-3) Docusate Sodium (Docusate Sodium 100 Mg Capsule) 100 mg PO DAILY PRN PRN Reason: Constipation Heparin Sodium (Porcine) (Heparin Sodium,Porcine 5,000 Unit/Ml Vial) 5,000 unit SUBCUT [facility]12H [facility] Lactated Ringer's (Lr) 1,000 mls @ 100 mls/hr IVCONT .Q10H [facility] Ampicillin Sodium/Sulbactam (Sodium 3 gm/ Sodium Chloride) 100 mls @ 200 mls/hr IV Q8H [facility] Ondansetron HCl (Ondansetron Hcl 4 Mg/2 Ml Vial) 4 mg IVPUSH Q8H PRN PRN Reason: Nausea and Vomiting Sodium Chloride (0.9 % Sodium Chloride Flush 3 Ml Syringe) 3 ml IVFLUSH QSHIFT [facility] Home Medications Medication Instructions Recorded Confirmed Last Taken Type acetaminophen 325 mg tablet 650 mg PO Q4H PRN PAIN/TEMP 12/30/21 05/29/23 Unknown History atorvastatin 20 mg tablet 20 mg PO BEDTIME 12/30/21 05/29/23 02/05/22 History bisacodyl 10 mg rectal suppository [address] MOWEFR 12/30/21 05/29/23 12/20/22 History esomeprazole magnesium 40 mg 40 mg PO BID@0630,1630 12/30/21 05/29/23 02/06/22 History capsule,delayed release (Nexium) gabapentin 100 mg capsule 100 mg PO BID 12/30/21 05/29/23 02/06/22 History haloperidol decanoate 50 mg/mL 10 mg IM Q14D 12/30/21 05/29/23 12/09/22 History intramuscular solution (Haldol Decanoate) lactulose 10 gram/15 mL oral 20 g PO BID 12/30/21 05/29/23 02/06/22 History solution multivitamin 1 tab PO DAILY 12/30/21 05/29/23 02/06/22 History propranolol 20 mg tablet 20 mg PO TID 12/30/21 05/29/23 02/06/22 History sennosides 8.6 mg tablet (senna) 8.6 mg PO DAILY PRN Constipation 12/30/21 05/29/23 Unknown History sennosides 8.6 mg-docusate sodium 2 tab PO BID 12/30/21 05/29/23 02/06/22 History 50 mg tablet (Senna Plus) tamsulosin 0.4 mg capsule 0.4 mg PO DAILY@2100 12/30/21 05/29/23 02/05/22 History tramadol 50 mg tablet 50 mg PO Q8H 12/30/21 05/29/23 Unknown History metoclopramide HCl 10 mg tablet 10 mg PO BIDAC 02/06/22 05/29/23 02/06/22 History levetiracetam 100 mg/mL oral 500 mg PO BID 02/13/22 05/29/23 Unknown History solution levothyroxine 100 mcg tablet 1 tab PO DAILY@0630 05/15/22 05/29/23 Unknown History acidophilus 100 million 1 cap PO DAILY 11/15/22 05/29/23 Unknown History cell-pectin, citrus 10 mg capsule aspirin 81 mg capsule 81 mg PO DAILY 12/21/22 05/29/23 Unknown History bisacodyl 10 mg rectal suppository [address] DAILY PRN Constipation 12/21/22 05/29/23 Unknown History bisacodyl 5 mg tablet 5 mg PO BEDTIME 12/21/22 05/29/23 Unknown History chlorpromazine 50 mg tablet 50 mg PO BID 12/21/22 05/29/23 Unknown History collagenase clostridium histo. 250 1 appl topical DAILY 12/21/22 05/29/23 Unknown History unit/gram topical ointment (Santyl) nutritional supplements 1 ea PO BID 12/21/22 05/29/23 Unknown History sodium phosphates 19 gram-[address] DAILY PRN Constipation 12/21/22 05/29/23 Unknown History gram/118 mL enema (Fleet Enema) tramadol 50 mg tablet 50 mg PO BID PRN Moderate Pain 12/21/22 05/29/23 Unknown History (Scale Score 5-6) Physical Exam Vital Signs and Narrative: Vital Signs: Last Vital Signs Temp 97.7 F 05/29/23 19:35 Pulse 83 05/29/23 19:35 Resp 18 05/29/23 19:35 BP 123/64 05/29/23 19:35 Pulse Ox 92 05/29/23 19:35 O2 Del Method Nasal Cannula 05/29/23 19:35 O2 Flow Rate 2 05/29/23 19:35 BMI result Body Mass Index 22.6 Const: Other: Patient is sleeping, difficult to arouse but not much of a historian Eyes: General: appearance normal, both eyes and all related structures Resp: Effort & Inspection: normal respiratory effort Cardio: Other: Irregular rhythm Rate: regular rate GI: Palpation (GI): Soft to palpation Auscultation: normal bowel sounds Skin: General skin exam: no rashes or lesions noted Neuro: Other: Sleeping Extrem: General: Yes normal to inspection and Yes no pedal edema Results Labs 05/29/23 20:05 05/29/23 20:05 Labs: Laboratory Results - last 24 hr 05/29/23 05/29/23 05/29/23 20:05 20:05 20:05 MCV 81.4 MCH 24.0 L MCHC 29.5 L RDW 20.8 H Plt Count 356 MPV 9.1 L Immature Gran % (Auto) 0.3 Neut % (Auto) 65.6 Lymph % (Auto) 20.0 [place] % (Auto) 7.5 Eos % (Auto) 6.1 H Baso % (Auto) 0.5 Lymph # (Auto) 1.5 [place] # (Auto) 0.6 Eos # (Auto) 0.5 H Baso # (Auto) 0.0 Abs Immat Gran (auto) 0.02 Absolute Neuts (auto) 4.8 Absolute Nucleated RBC 0.000 Nucleated RBC % (auto) 0.0 PT 12.5 INR 1.0 Anion Gap 13 Estim Creat Clear Calc 54.5 Estimated GFR > 60 Random Glucose 93 Lactic Acid Calcium 9.8 D Magnesium 2.1 Total Bilirubin 0.2 Direct Bilirubin < 0.2 AST 33 ALT 25 Alkaline Phosphatase 117 Total Protein 8.5 H Albumin 3.8 COVID-19 ([facility]) COVID-19 Clin Com Influenza Type A ([facility]) Influenza Type B ([facility]) Influenza A & B Note 05/29/23 05/29/23 05/29/23 20:05 20:05 20:05 MCV MCH MCHC RDW Plt Count MPV Immature Gran % (Auto) Neut % (Auto) Lymph % (Auto) [place] % (Auto) Eos % (Auto) Baso % (Auto) Lymph # (Auto) [place] # (Auto) Eos # (Auto) Baso # (Auto) Abs Immat Gran (auto) Absolute Neuts (auto) Absolute Nucleated RBC Nucleated RBC % (auto) PT INR Anion Gap Estim Creat Clear Calc Estimated GFR Random Glucose Lactic Acid 1.5 Calcium Magnesium Total Bilirubin Direct Bilirubin AST ALT Alkaline Phosphatase Total Protein Albumin COVID-19 ([facility]) Negative COVID-19 Clin Com See Note Influenza Type A ([facility]) Negative Influenza Type B ([facility]) Negative Influenza A & B Note See Note Imaging Radiologist's Impressions: Impressions Chest X-Ray 05/29/23 22:06 IMPRESSION: Asymmetric increased right perihilar markings may be projectional given the kyphotic positioning. Right perihilar infiltrates cannot be excluded. 0.9 cm nodule overlying right mid chest does not show a correlating abnormality on the previous CT scan. A new nodule cannot be excluded. A repeat chest CT scan should be considered when possible. Assessment and Plan (1) Aspiration pneumonia: Status: Acute (2) Acute respiratory failure with hypoxia: Status: Acute Plan 83-year-old male past medical history of advanced dementia, AFib, history of seizures, prostate cancer is brought into the hospital with hypoxia secondary to pneumonia # acute hypoxic respiratory failure - secondary to pneumonia - will treat with IV antibiotics - monitor respiratory status # acute community-acquired pneumonia - has infiltrates seen on x-ray, hypoxic - COVID, and influenza negative - will treat with IV antibiotics - will obtain complete viral panel # BPH/prostate cancer - continue finasteride # seizure disorder - continue antiepileptic # hypothyroidism - continue levothyroxine # history of AFib - continue probe - not on any anticoagulation # dementia - continue mood stabilizers DVT prophylaxis: Heparin subQ Given patient's need for IV antibiotics and oxygen supplement patient require minimum 2 nights inpatient hospital stay for further management and monitoring Time Spent With Patient Time: Total time managing care of this patient today ____ minutes. Quality Stroke Does the patient have a stroke diagnosis?: No VTE Prior VTE?: No VTE Risk Level:: Medical - moderate - high VTE Device Contraindication: Treatment Not Indicated VTE Drug Contraindication: N/A - Med Ordered
[2023-05-30] MEDS: Lactated Ringers 1,000 ML 100 ML IVCONT ×2 (00:14→10:27)
[2023-05-30] MEDS: Ampicillin Sodium/Sulbactam Na 3 GM in 0.9 % Sodium Chloride 100 ML IV ×3 (00:20→15:27)
[2023-05-30 05:30] VITALS: BP 108/78; PULSE 88; RESP 18; O2SAT 98
[2023-05-30 05:35] LABS: MANUAL DIFF FLAG NO
[2023-05-30 05:39] LABS: Basophils Absolute Auto 0.1 X10*3/uL (0.0-0.2); Basophils Percent Auto 0.4 % (0-2); Eosinophils Absolute Auto 0.1 X10*3/uL (0.0-0.4); Hematocrit 37.6 % (42.0-52.0); Hemoglobin 11.1 g/dl (14.0-18.0); Imm Gran Abs Auto 0.05 X10*3/uL (0.00-0.03); Imm Gran Pct Auto 0.4 % (0.0-0.4); Lymphocytes Absolute Auto 1.4 X10*3/uL (1.2-4.9); Lymphocytes Percent Auto 10.3 % (20-40); Mean Corpuscular HGB Conc 29.5 g/dl (31.0-36.0); Mean Corpuscular Hemoglobin 23.8 pg (27.0-33.0); Mean Corpuscular Volume 80.5 fL (80.0-98.0); Mean Platelet Volume 9.5 fL (9.4-12.4); Monocytes Absolute Auto 0.7 X10*3/uL (0.1-1.2); Monocytes Percent Auto 5.6 % (2-11); Neutrophils Percent Auto 82.3 % (45-73); Platelet Count 330 X10*3/uL (160-400); Red Blood Count 4.67 X10*6/uL (4.60-5.80); Red Cell Distribution Width 20.6 % (11.0-16.0); White Blood Count 13.3 X10*3/uL (4.8-10.8)
[2023-05-30 05:56] LABS: Anion Gap 14 (12-20); Blood Urea Nitrogen 26 mg/dL (9-16); Calcium 9.4 mg/dL (8.4-10.2); Carbon Dioxide 23 mmol/L (22-29); Chloride 109 mmol/L (96-108); Creatinine Clr Calc Pharmacy 65.5; Estimated Glomerular Filt Rate > 60; Glucose Random 98 mg/dL (60-115); Potassium 4.5 mmol/L (3.3-5.1); Sodium 141 mmol/L (135-145)
--- NOTE | 2023-05-30 06:46 | PHA.MEDREC ---
Pharmacy Consult ? Medication Reconciliation Pharmacy has reviewed the medication reconciliation done by RN.
[2023-05-30 07:36] VITALS: BP 101/66; PULSE 98; RESP 18; TEMP 36.6; O2SAT 90
[2023-05-30] MEDS: bisacodyL 10 MG SUPP.RECT PR (09:39)
--- NOTE | 2023-05-30 09:43 | P.PNIM_ITS ---
Subjective Subjective Date of Service: 05/30/23 Review of Systems Follow up CAP Review of Systems: Yes Unobtainable due to mental condition Physical Exam Vital Signs: Vital Signs: Last Vital Signs Temp 97.8 F 05/30/23 07:36 Pulse 98 05/30/23 07:36 Resp 18 05/30/23 07:36 BP 101/66 05/30/23 07:36 Pulse Ox 90 L 05/30/23 07:36 O2 Del Method Nasal Cannula 05/30/23 07:36 O2 Flow Rate 2 05/30/23 07:36 BMI result Body Mass Index 22.6 Appearing in no acute distress lung sounds are clear to auscultation heart regular rate rhythm, clear S1, S2 positive bowel sounds, abdomen is soft, nontender neuro patient is alert, confused Objective Data Active Medications Acetaminophen (Acetaminophen 325 Mg Tablet) 650 mg PO Q6H PRN PRN Reason: Pain, Mild (Pain Scale 1-3) Acetaminophen (Acetaminophen 325 Mg Tablet) 650 mg PO Q4H PRN PRN Reason: PAIN/TEMP Aspirin (Aspirin Enteric Coated 81 Mg Tablet.) 81 mg PO DAILY [facility] Last Admin: 05/30/23 08:48 Dose: Not Given Documented By: MARCO Non-Admin Reason: NPO Atorvastatin Calcium (Atorvastatin Calcium 20 Mg Tablet) 20 mg PO BEDTIME [facility] Bisacodyl (Bisacodyl 5 Mg Tablet.) 5 mg PO BEDTIME [facility] Bisacodyl (Bisacodyl 10 Mg Supp.Rect) 10 mg MD DAILY PRN PRN Reason: Constipation Bisacodyl (Bisacodyl 10 Mg Supp.Rect) 10 mg MD MOWEFR [facility] Last Admin: 05/30/23 09:39 Dose: 10 mg Documented By: MARCO Collagenase (Collagenase Clostridium Hist. 30 Gm Tube) 1 appl TOPICAL DAILY [facility]; Protocol Docusate Sodium (Docusate Sodium 100 Mg Capsule) 100 mg PO DAILY PRN PRN Reason: Constipation Finasteride (Finasteride 5 Mg Tablet) 5 mg PO DAILY [facility] Last Admin: 05/30/23 08:49 Dose: Not Given Documented By: MARCO Non-Admin Reason: NPO Gabapentin (Gabapentin 100 Mg Capsule) 100 mg PO BID [facility] Last Admin: 05/30/23 08:49 Dose: Not Given Documented By: MARCO Non-Admin Reason: NPO Haloperidol Decanoate (Haloperidol Decanoate 50 Mg/Ml Ampul) 10 mg IM Q14D [facility] Heparin Sodium (Porcine) (Heparin Sodium,Porcine 5,000 Unit/Ml Vial) 5,000 unit SUBCUT Q12H [facility] Lactated Ringer's (Lr) 1,000 mls @ 100 mls/hr IVCONT .Q10H [facility] Last Admin: 05/30/23 00:14 Dose: 100 mls/hr Documented By: SAIDA Ampicillin Sodium/Sulbactam (Sodium 3 gm/ Sodium Chloride) 100 mls @ 200 mls/hr IV Q8H [facility] Last Infusion: 05/30/23 08:19 Dose: 0 mls/hr Documented By: MARCO Lactulose (Lactulose 20 Gm/30 Ml Solution) 20 gm PO BID [facility] Last Admin: 05/30/23 08:49 Dose: Not Given Documented By: MARCO Non-Admin Reason: NPO Levetiracetam (Levetiracetam Oral Soln 500 Mg/5 Ml) 500 mg PO BID [facility] Last Admin: 05/30/23 08:49 Dose: Not Given Documented By: MARCO Non-Admin Reason: NPO Levothyroxine Sodium (Levothyroxine Sodium 112 Mcg Tablet) 112 mcg PO DAILY@0600 [facility] Metoclopramide HCl (Metoclopramide Hcl 10 Mg Tablet) 10 mg PO BIDAC [facility] Last Admin: 05/30/23 07:10 Dose: Not Given Documented By: MARCO Non-Admin Reason: NPO Multivitamins/Vitamin C (Multivitamin Tablet) 1 tab PO DAILY [facility] Last Admin: 05/30/23 08:49 Dose: Not Given Documented By: MARCO Non-Admin Reason: NPO Omeprazole (Omeprazole 20 Mg Capsule.Dr) 20 mg PO BID@0630,1630 [facility] Ondansetron HCl (Ondansetron Hcl 4 Mg/2 Ml Vial) 4 mg IVPUSH Q8H PRN PRN Reason: Nausea and Vomiting Polyethylene Glycol (Polyethylene Glycol 3350 17 Gm Powd.Pack) 17 gm PO DAILY [facility] Last Admin: 05/30/23 08:49 Dose: Not Given Documented By: MARCO Non-Admin Reason: NPO Propranolol HCl (Propranolol Hcl 20 Mg Tablet) 20 mg PO TID [facility]; Protocol Last Admin: 05/30/23 08:49 Dose: Not Given Documented By: MARCO Non-Admin Reason: NPO Senna (Sennosides 8.6 Mg Tablet) 8.6 mg PO DAILY PRN PRN Reason: Constipation Senna/Docusate Sodium (Sennosides/Docusate Sodium Tablet) 2 tab PO BID [facility] Last Admin: 05/30/23 08:49 Dose: Not Given Documented By: MARCO Non-Admin Reason: NPO Sodium Biphosphate/Sodium Phosphate (Sodium Phosphate,[place]-Dibasic 133 Ml Enema) 118 ml MD DAILY PRN PRN Reason: Constipation Sodium Chloride (0.9 % Sodium Chloride Flush 3 Ml Syringe) 3 ml IVFLUSH QSHIFT [facility] Last Admin: 05/30/23 07:10 Dose: Not Given Documented By: MARCO Non-Admin Reason: IV Running Tamsulosin HCl (Tamsulosin Hcl 0.4 Mg Capsule) 0.4 mg PO DAILY@2100 [facility] Tramadol HCl (Tramadol Hcl 50 Mg Tablet) 50 mg PO Q8H [facility] Last Admin: 05/30/23 07:10 Dose: Not Given Documented By: MARCO Non-Admin Reason: NPO Labs 05/30/23 05:23 05/30/23 05:23 Labs: Laboratory Results - last 24 hr 05/29/23 05/29/23 05/29/23 20:05 20:05 20:05 MCV 81.4 MCH 24.0 L MCHC 29.5 L RDW 20.8 H Plt Count 356 MPV 9.1 L Immature Gran % (Auto) 0.3 Neut % (Auto) 65.6 Lymph % (Auto) 20.0 [place] % (Auto) 7.5 Eos % (Auto) 6.1 H Baso % (Auto) 0.5 Lymph # (Auto) 1.5 [place] # (Auto) 0.6 Eos # (Auto) 0.5 H Baso # (Auto) 0.0 Abs Immat Gran (auto) 0.02 Absolute Neuts (auto) 4.8 Absolute Nucleated RBC 0.000 Nucleated RBC % (auto) 0.0 PT 12.5 INR 1.0 Anion Gap 13 Estim Creat Clear Calc 54.5 Estimated GFR > 60 Random Glucose 93 Lactic Acid Calcium 9.8 D Magnesium 2.1 Total Bilirubin 0.2 Direct Bilirubin < 0.2 AST 33 ALT 25 Alkaline Phosphatase 117 Total Protein 8.5 H Albumin 3.8 COVID-19 ([facility]) COVID-19 Clin Com Influenza Type A ([facility]) Influenza Type B ([facility]) Influenza A & B Note 05/29/23 05/29/23 05/29/23 20:05 20:05 20:05 MCV MCH MCHC RDW Plt Count MPV Immature Gran % (Auto) Neut % (Auto) Lymph % (Auto) [place] % (Auto) Eos % (Auto) Baso % (Auto) Lymph # (Auto) [place] # (Auto) Eos # (Auto) Baso # (Auto) Abs Immat Gran (auto) Absolute Neuts (auto) Absolute Nucleated RBC Nucleated RBC % (auto) PT INR Anion Gap Estim Creat Clear Calc Estimated GFR Random Glucose Lactic Acid 1.5 Calcium Magnesium Total Bilirubin Direct Bilirubin AST ALT Alkaline Phosphatase Total Protein Albumin COVID-19 ([facility]) Negative COVID-19 Clin Com See Note Influenza Type A ([facility]) Negative Influenza Type B ([facility]) Negative Influenza A & B Note See Note 05/30/23 05/30/23 05:23 05:23 MCV 80.5 MCH 23.8 L MCHC 29.5 L RDW 20.6 H Plt Count 330 MPV 9.5 Immature Gran % (Auto) 0.4 Neut % (Auto) 82.3 H Lymph % (Auto) 10.3 L [place] % (Auto) 5.6 Eos % (Auto) 1.0 Baso % (Auto) 0.4 Lymph # (Auto) 1.4 [place] # (Auto) 0.7 Eos # (Auto) 0.1 Baso # (Auto) 0.1 Abs Immat Gran (auto) 0.05 H Absolute Neuts (auto) 11.0 H Absolute Nucleated RBC 0.000 Nucleated RBC % (auto) 0.0 PT INR Anion Gap 14 Estim Creat Clear Calc 65.5 Estimated GFR > 60 Random Glucose 98 Lactic Acid Calcium 9.4 Magnesium Total Bilirubin Direct Bilirubin AST ALT Alkaline Phosphatase Total Protein Albumin COVID-19 ([facility]) COVID-19 Clin Com Influenza Type A ([facility]) Influenza Type B ([facility]) Influenza A & B Note Assessment and Plan (1) Acute respiratory failure with hypoxia: Status: Acute Plan 83-year-old male past medical history of advanced dementia, AFib, history of seizures, prostate cancer is brought into the hospital with hypoxia secondary to pneumonia Acute hypoxic respiratory failure secondary to community-acquired pneumonia Negative COVID, influenza on continue ampicillin monitor respiratory status Viral panel pending BPH/prostate cancer continue finasteride seizure disorder continue antiepileptic hypothyroidism continue levothyroxine history of AFib not on any anticoagulation dementia continue mood stabilizers DVT prophylaxis:? Heparin subQ Attending Dr. Armendariz continue hospitalization for treatment of acute hypoxic respiratory failure secondary to community-acquired pneumonia Time Spent With Patient Time: Total time managing care of this patient today ____ minutes. Quality Stroke Does the patient have a stroke diagnosis?: No VTE Prior VTE?: No VTE Risk Level:: Medical - moderate - high VTE Device Contraindication: Treatment Not Indicated VTE Drug Contraindication: N/A - Med Ordered
[2023-05-30] MEDS: Heparin Sodium,Porcine 5,000 UNIT/ML VIAL 5000 UNIT SUBCUT ×2 (10:26→21:57)
[2023-05-30] MEDS: levETIRAcetam Oral Soln 500 MG/5 ML PO ×2 (10:28→22:01)
[2023-05-30] MEDS: Propranolol HCL 20 MG TABLET PO ×3 (10:28→22:00)
[2023-05-30] MEDS: Gabapentin 100 MG CAPSULE PO ×2 (10:28→22:00)
[2023-05-30] MEDS: Lactulose 20 GM/30 ML SOLUTION PO (10:28)
[2023-05-30] MEDS: Collagenase Clostridium Hist. 30 GM TUBE 1 APPL TOPICAL (10:29)
--- NOTE | 2023-05-30 10:33 | MHC.CM.PN ---
pt from [facility] where he will return when dcd guardian notified
[2023-05-30 10:53] VITALS: BMI 19.7
--- NOTE | 2023-05-30 11:30 | MHC.SL.SWA ---
Speech Pathologist Impression: Risk of aspiration, oropharyngeal dysphagia Risk of Aspiration Due to: Neurological Condition History of Pneumonia Reduced Cognition Dysphasia Diet Status: Upgrade from NPO, start on NDD1/NTL Liquid Consistency and Strategies for Safe Swallow: Liquid Intake Recommendation: [facility] Thick Liquid Intake Strategies: Small Sips No Straws Solid Food Consistency: Dietary Recommendations: Pureed (NDD1) Additional Modifications to Solid Foods: Recommend UPGRADE from NPO, START on PUREED (NDD1) diet and NECTAR THICK liquids (no straws), pills CRUSHED in PUREE. Pt w/ hx dementia, COPD, schizophrenia, occipital infarction. Pt requires total 1:1 assistance feeding and strict aspiration precautions. Recommendations were written on whiteboard in pt's room, discussed with SUBSTATION MAINTENANCE TECHNICIAN on floor. Notified care team (MARKETING DEVELOPER, RN, RD) of recommendations via [place] Message. MANAGER CREDIT COLLECTIONS will continue to follow during hospitalization to monitor tolerance and re-assess for potential upgrade if appropriate ([facility] is soft and bite size diet with thin liquids). Oral Medication Intake: Crushed with Puree Please contact the pharmacy regarding appropriate crushable or liquid drug formulations that are available whenever modified delivery is recommended. Compensatory Strategies and Precautions to be Taken for Safe Swallow: Sitting Upright (90 deg) No Straw Liquids from Cup Liquids from Spoon Small Bites and Sips Rate of Ingestion Change Oral Check Supervision While Eating and Drinking for Safe Swallow: Total Assistance (1:1) Foods to Avoid: [place] sticky solids. Swallowing Recommended Treatments: Compens. Strategy Educat. Recommendation for Speech: Inpatient Speech Therapy Comment: Frequency/Duration: PRN Label Designer Clinican/Clinical Fellow: No Supervisory Statement: I have reviewed and agree with the student/clinical fellow's documentation: N/A Speech Language Pathologist: Halle Mccarthy M.A., CCC-MANAGER CREDIT COLLECTIONS
[2023-05-30 12:02] LABS: Appearance Urine Clear; Color Urine Yellow; Glucose Urine UA Negative (Negative); Leukocyte Esterase Urine Large (3+) (Negative); Nitrite Urine Negative (Negative); PH 5.5 (5.0-9.0); Specific Gravity - Urine 1.025 (1.005-1.025); UMIC TRIGGER UACC YES; Urine Blood Negative (Negative); Urine Ketones Negative (Negative); Urine Protein Trace mg/dL (Neg-Trace)
[2023-05-30 12:06] LABS: Bacteria Urine None Seen (None Seen); Hyaline Casts Urine 0-2 /LPF (0-2); RBC Urine 0-2 /HPF (0-2); Squamous Epithelial Cell Urine 0-2 /HPF (0-2); UACC Culture Trigger YES; WBC Urine >50 /HPF (0-5)
[2023-05-30 12:52] LABS: Adenovirus PCR Not Detected (Not Detect.); Bordetella parapertussis PCR Not Detected (Not Detect.); Bordetella pertussis PCR Not Detected (Not Detect.); Chlamydia pneumoniae PCR Not Detected (Not Detect.); Coronavirus 229E PCR Not Detected (Not Detect.); Coronavirus HKU1 PCR Not Detected (Not Detect.); Coronavirus NL63 PCR Not Detected (Not Detect.); Coronavirus OC43 PCR Not Detected (Not Detect.); Human metapneumovirus PCR Not Detected (Not Detect.); Influenza A PCR Not Detected (Not Detect.); Influenza B PCR Not Detected (Not Detect.); Mycoplasma pneumoniae PCR Not Detected (Not Detect.); Parainfluenza 1 PCR Not Detected (Not Detect.); Parainfluenza 2 PCR Not Detected (Not Detect.); Parainfluenza 3 PCR Not Detected (Not Detect.); Parainfluenza 4 PCR Not Detected (Not Detect.); RSV PCR Not Detected (Not Detect.); Rhino/Enterovirus PCR Not Detected (Not Detect.); SARS-CoV-2 PCR Not Detected (Not Detect.)
[2023-05-30] MEDS: traMADoL HCL 50 MG TABLET PO ×2 (13:44→22:00)
[2023-05-30 14:33] VITALS: BMI 19.7
--- NOTE | 2023-05-30 14:47 | MHC.CLN ---
NUTRITION CONSULT FOR PRESSURE ULCER HIP. SEEN BY FOREST FIRE CONTROL OFFICER 05/30 WITH REC FOR PUREE CONSISTENCY AND NECTAR THICK LIQUIDS. 1:1 FEEDING ASSISTANCE AND ASPIRATION PRECAUTIONS. QUALIFIES NON SEVERE (MODERATE) MALNUTRITION IN THE CONTEXT OF CHRONIC ILLNESS. WEIGHT HX VARIABLE. PRESENTS WITH MODERATE DEPLETION OF BODY FAT AND MUSCLE MASS. MULTIPLE AREAS OF IMPAIRED SKIN: LEFT AND RIGHT FEET; LEFT AND RIGHT HIPS; RIGHT ILIAC CREST. ADDING THRIVE FORTIFIED ICE CREAM TO INCREASE KCALS AND PROTEIN INTAKE. THRIVE BID PROVIDES 540 KCALS, 18 G PROTEIN ENCOURAGE INTAKE ABLE. FOLLOW FOR INTAKE AND SKIN INTEGRITY. SEE CLINICAL NUTRITION ASSESSMENT 05/30/23.
[2023-05-30] MEDS: Metoclopramide HCl 10 MG TABLET PO (15:37)
--- NOTE | 2023-05-30 15:38 | PC.NURSE ---
unable to take po meds unless crushed, provider notified.
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
[2023-05-30 19:21] VITALS: BP 115/65; PULSE 81; TEMP 36.8
[2023-05-30] MEDS: 0.9 % Sodium Chloride Flush 3 ML SYRINGE IVFLUSH (21:58)
[2023-05-30] MEDS: Atorvastatin Calcium 20 MG TABLET PO (22:00)
[2023-05-30] MEDS: Tamsulosin HCL 0.4 MG CAPSULE PO (22:00)
[2023-05-31] MEDS: Ampicillin Sodium/Sulbactam Na 3 GM in 0.9 % Sodium Chloride 100 ML IV ×4 (00:10→23:27)
[2023-05-31 00:17] VITALS: BP 136/69; PULSE 82; RESP 18; TEMP 36.8; O2SAT 94
[2023-05-31] MEDS: traMADoL HCL 50 MG TABLET PO ×3 (05:57→21:37)
[2023-05-31] MEDS: Levothyroxine Sodium 112 MCG TABLET PO (05:57)
[2023-05-31] MEDS: Omeprazole 20 MG CAPSULE.DR PO (05:57)
[2023-05-31 07:33] VITALS: BP 127/71; PULSE 77; RESP 20; TEMP 36.6; O2SAT 94
--- NOTE | 2023-05-31 09:53 | P.DS_ITS ---
DS: Providers Provider Date of Service: 05/31/23 Date of admission: 05/29/23 23:22 Primary care physician: Norris Muñoz DO DS: Diagnosis Discharge Diagnosis (1) Acute respiratory failure with hypoxia: Status: Acute DS: Summary Hospital Course Hospital Course: history and physical as per admitting provider. 83-year-old male a resident of [facility] with past medical history of AFib, COPD, advanced dementia, prostate cancer, schizophrenia, comes into the hospital after possible aspiration episode at [facility].? History is obtained from EMR as well as ED provider as patient unable to give much history due to mental in clinical status.?EMS was called with complaints of respiratory distress, tachypnea, hypoxia.? EMS found the patient to be in the 80s, and patient remained in the 80s during transport.? On arrival to the ED patient was on 15 L of non-rebreather.? There was a report from [facility] the patient may have had an aspiration episode during dinner but no further details were given. Unable to obtain review of system Arrival to the ED patient's other vitals stable Labs are significant for WBC count of 13.3, hematocrit 36.7, labs otherwise unremarkable Chest x-ray shows asymmetric increased right perihilar markings may be projectional versus infiltrate Patient will be admitted for further management 83-year-old man treated for acute hypoxic respiratory failure secondary to community-acquired pneumonia / aspiration pneumonia. COVID and flu were negative. He was treated with IV ampicillin. Viral panel was negative. He is no longer hypoxic and not requiring oxygen. He will be sent home with 5 more days of Augmentin and doxycycline for a total of 7 days treatment. BPH/prostate cancer continue finasteride seizure disorder continue antiepileptic hypothyroidism continue levothyroxine history of AFib not on anticoagulation dementia continue mood stabilizers Time Spent with Patient Time attestation: Total time managing care of this patient today ____ minutes. Discharge coordination time: Greater than 30 minutes Quality: Safe Use of Opioids Does Pt have an Active Cancer Diagnosis on the Problem List?: No Quality: Stroke Does the patient have a stroke diagnosis?: No Physical Exam Vital Signs: Vital Signs: Last Vital Signs Temp 97.8 F 05/31/23 07:33 Pulse 77 05/31/23 07:33 Resp 20 05/31/23 07:33 BP 127/71 05/31/23 07:33 Pulse Ox 94 05/31/23 07:33 O2 Del Method Room Air 05/31/23 07:33 O2 Flow Rate 2 05/31/23 00:17 BMI result Body Mass Index 19.7 Appearing in no acute distress head is normocephalic atraumatic eyes pupils are PERRLA sclera is anicteric mouth throat mucous membranes are intact and moist neck is supple no lymphadenopathy, no JVD noted lung sounds are clear to auscultation heart regular rate rhythm, clear S1, S2 positive bowel sounds, abdomen is soft, nontender neuro patient is alert, confused MSK LE contractures DS: Data Data Completed and Pending Completed studies during hospitalization [Text1]: Procedures Introduction of Vasopressor into Peripheral Vein, Percutaneous Approach (05/15/22) Labs on day of discharge: Laboratory Results - last 24 hr 05/30/23 05/30/23 09:20 11:45 Urine Color Yellow Urine Appearance Clear Urine pH 5.5 Ur Specific [place] 1.025 Urine Protein Trace Urine Glucose (UA) Negative Urine Ketones Negative Urine Blood Negative Urine Nitrite Negative Ur Leukocyte Esterase Large (3+) H Urine RBC 0-2 Urine WBC >50 H Ur Squamous Epith Cells 0-2 Urine Bacteria None Seen Hyaline Casts 0-2 Respiratory Panel Muniz SEE NOTE Adenovirus (Rapid PCR) Not Detected B.pert (TEM-PCR) Not Detected B.parapertussis DNA PCR Not Detected C. pneumoniae DNA (PCR) Not Detected Coronavirus OC43 (PCR) Not Detected Coronavirus HKU1 (PCR) Not Detected Coronavirus 229E (PCR) Not Detected Coronavirus NL63 (PCR) Not Detected Human Metapneumovir PCR Not Detected Influenza A (RT-PCR) Not Detected Influenza B (RT-PCR) Not Detected M. pneumoniae (PCR) Not Detected Parainfluenza 1 (PCR) Not Detected Parainfluenza 2 (PCR) Not Detected Parainfluenza 3 (PCR) Not Detected Parainfluenza 4 (PCR) Not Detected RSV (PCR) Not Detected Entero/Rhino (PCR) Not Detected SARS-CoV-2 RNA (RT-PCR) Not Detected Preliminary micro results at discharge 05/29/23 20:50 Blood Culture - Preliminary Blood - Venous No growth after 24 hours. 05/29/23 20:50 Blood Culture - Preliminary Blood - Venous No growth after 24 hours. Discharge Plan Discharge Anticipated Discharge Date/Time: 05/31/23 09:49 Patient Disposition: Xfer [facility] Discharge Diagnosis: aspiration pneumonia Referrals: Norris Muñoz DO [Primary Care Provider] - 1 Week Discharge Medications: New amoxicillin-pot clavulanate 875-125 mg tablet 1 tab PO BID Qty: 10 0RF doxycycline hyclate 100 mg tablet 100 mg PO BID Qty: 10 0RF Continued acetaminophen 325 mg Tablet 650 mg PO Q4H PRN (Reason: PAIN/TEMP) atorvastatin 20 mg Tablet 20 mg PO BEDTIME bisacodyl 10 mg Suppository 10 mg MD MOWEFR Rx Instructions: mon,wed,fri gabapentin 100 mg Capsule 100 mg PO BID haloperidol decanoate [Haldol Decanoate] 50 mg/mL Solution 10 mg IM Q14D lactulose 10 gram/15 mL Solution 20 g PO BID esomeprazole magnesium [Nexium] 40 mg Capsule,Delayed Release(Dr/Ec) 40 mg PO BID@0630,1630 multivitamin Tablet 1 tab PO DAILY propranolol 20 mg Tablet 20 mg PO TID sennosides [senna] 8.6 mg Tablet 8.6 mg PO DAILY PRN (Reason: Constipation) sennosides-docusate sodium [Senna Plus] 8.6-50 mg Tablet 2 tab PO BID tamsulosin 0.4 mg Capsule 0.4 mg PO DAILY@2100 tramadol 50 mg Tablet 50 mg PO Q8H Rx Instructions: GIVE 8 HOURS APART FROM SCHEDULED DOSE metoclopramide HCl 10 mg Tablet 10 mg PO BIDAC levetiracetam 100 mg/mL Solution 500 mg PO BID acidophilus-pectin, citrus 100 million cell-10 mg Capsule 1 cap PO DAILY Rx Instructions: take with a meal polyethylene glycol 3350 17 gram Powder In Packet 17 g PO DAILY Qty: 30 0RF aspirin 81 mg Capsule 81 mg PO DAILY Hold Instructions: at [facility] to decide when to restart if needed bisacodyl 10 mg Suppository 10 mg MD DAILY PRN (Reason: Constipation) Rx Instructions: if senna is ineffetive bisacodyl 5 mg Tablet 5 mg PO BEDTIME Fleet Enema 19-7 gram/118 mL Enema 118 ml MD DAILY PRN (Reason: Constipation) Rx Instructions: if bisacodyl suppository is ineffective nutritional supplements Powder 1 ea PO BID Santyl 250 unit/gram Ointment 1 appl TOPICAL DAILY Protocol: Apply to: Apply to: left hip prior to dressing change levothyroxine 112 mcg tablet 112 mcg PO DAILY finasteride 5 mg tablet 5 mg PO DAILY 90 Days Qty: 90 3RF Discharge Orders: Discharge Order (Routine); Ordered 05/31/23 Ordered By: Ember Hernandez Diet: Advance to usual diet Activity on Discharge: As tolerated Stand Alone Forms: Patient Portal Discharge page Care Plan Goals: Sitting Upright (90 deg) No Straw Liquids from Cup Liquids from Spoon Small Bites and Sips Rate of Ingestion Change Oral Check Health Concerns: aspiration pneumonia Plan of Treatment: take all medications as prescribed Continue on pureed diet Assessment: see discharge summary
[2023-05-31] MEDS: levETIRAcetam Oral Soln 500 MG/5 ML PO ×2 (10:20→21:38)
[2023-05-31] MEDS: Heparin Sodium,Porcine 5,000 UNIT/ML VIAL 5000 UNIT SUBCUT ×2 (10:20→21:37)
[2023-05-31] MEDS: Metoclopramide HCl 10 MG TABLET PO ×2 (10:23→16:05)
[2023-05-31] MEDS: Multivitamin TABLET 1 TAB PO (10:23)
[2023-05-31] MEDS: Finasteride 5 MG TABLET PO (10:23)
[2023-05-31] MEDS: Propranolol HCL 20 MG TABLET PO ×3 (10:23→21:38)
[2023-05-31] MEDS: Gabapentin 100 MG CAPSULE PO ×2 (10:24→21:37)
[2023-05-31] MEDS: Collagenase Clostridium Hist. 30 GM TUBE 1 APPL TOPICAL (10:24)
--- NOTE | 2023-05-31 10:28 | MHC.CM.PN ---
pt to return to [facility] arrangements made with [facility] pt will be going
--- NOTE | 2023-05-31 10:35 | MHC.CM.PN ---
message left for dara mchugh dc back to [facility] today
--- NOTE | 2023-05-31 11:36 | HO.PM.IMPN ---
Subjective Subjective Date of Service: 05/31/23 Review of Systems Follow up CAP Review of Systems: Yes Unobtainable due to mental condition Physical Exam Vital Signs: Vital Signs: Last Vital Signs Temp 97.8 F 05/31/23 07:33 Pulse 77 05/31/23 07:33 Resp 20 05/31/23 07:33 BP 127/71 05/31/23 07:33 Pulse Ox 94 05/31/23 07:33 O2 Del Method Room Air 05/31/23 07:33 O2 Flow Rate 2 05/31/23 00:17 BMI result Body Mass Index 19.7 Appearing in no acute distress lung sounds are clear to auscultation heart regular rate rhythm, clear S1, S2 positive bowel sounds, abdomen is soft, nontender neuro patient is alert , confused LE contractures Objective Data Active Medications Acetaminophen (Acetaminophen 325 Mg Tablet) 650 mg PO Q6H PRN PRN Reason: Pain, Mild (Pain Scale 1-3) Acetaminophen (Acetaminophen 325 Mg Tablet) 650 mg PO Q4H PRN PRN Reason: PAIN/TEMP Aspirin (Aspirin Enteric Coated 81 Mg Tablet.) 81 mg PO DAILY [facility] Last Admin: 05/31/23 10:23 Dose: Not Given Documented By: BI Non-Admin Reason: cant crush Atorvastatin Calcium (Atorvastatin Calcium 20 Mg Tablet) 20 mg PO BEDTIME [facility] Last Admin: 05/30/23 22:00 Dose: 20 mg Documented By: TRI Bisacodyl (Bisacodyl 5 Mg Tablet.) 5 mg PO BEDTIME [facility] Last Admin: 05/30/23 21:55 Dose: Not Given Documented By: TRI Non-Admin Reason: pt has difficulty swallowing, can't crush med Bisacodyl (Bisacodyl 10 Mg Supp.Rect) 10 mg MI DAILY PRN PRN Reason: Constipation Bisacodyl (Bisacodyl 10 Mg Supp.Rect) 10 mg MI MOWEFR [facility] Last Admin: 05/30/23 09:39 Dose: 10 mg Documented By: MARCO Collagenase (Collagenase Clostridium Hist. 30 Gm Tube) 1 appl TOPICAL DAILY TERESE; Protocol Last Admin: 05/31/23 10:24 Dose: 1 appl Documented By: BI Docusate Sodium (Docusate Sodium 100 Mg Capsule) 100 mg PO DAILY PRN PRN Reason: Constipation Finasteride (Finasteride 5 Mg Tablet) 5 mg PO DAILY [facility] Last Admin: 05/31/23 10:23 Dose: 5 mg Documented By: BI Gabapentin (Gabapentin 100 Mg Capsule) 100 mg PO BID [facility] Last Admin: 05/31/23 10:24 Dose: 100 mg Documented By: BI Haloperidol Decanoate (Haloperidol Decanoate 50 Mg/Ml Ampul) 10 mg IM Q14D [facility] Heparin Sodium (Porcine) (Heparin Sodium,Porcine 5,000 Unit/Ml Vial) 5,000 unit SUBCUT Q12H [facility] Last Admin: 05/31/23 10:20 Dose: 5,000 unit Documented By: BI Ampicillin Sodium/Sulbactam (Sodium 3 gm/ Sodium Chloride) 100 mls @ 200 mls/hr IV Q8H [facility] Last Infusion: 05/31/23 09:31 Dose: 0 mls/hr Documented By: BI Lactulose (Lactulose 20 Gm/30 Ml Solution) 20 gm PO BID [facility] Last Admin: 05/31/23 07:31 Dose: Not Given Documented By: BI Non-Admin Reason: mult BMs Levetiracetam (Levetiracetam Oral Soln 500 Mg/5 Ml) 500 mg PO BID [facility] Last Admin: 05/31/23 10:20 Dose: 500 mg Documented By: BI Levothyroxine Sodium (Levothyroxine Sodium 112 Mcg Tablet) 112 mcg PO DAILY@0600 [facility] Last Admin: 05/31/23 05:57 Dose: 112 mcg Documented By: TRI Metoclopramide HCl (Metoclopramide Hcl 10 Mg Tablet) 10 mg PO BIDAC [facility] Last Admin: 05/31/23 10:23 Dose: 10 mg Documented By: BI Multivitamins/Vitamin C (Multivitamin Tablet) 1 tab PO DAILY [facility] Last Admin: 05/31/23 10:23 Dose: 1 tab Documented By: BI Omeprazole (Omeprazole 20 Mg Capsule.Dr) 20 mg PO BID@0630,1630 [facility] Last Admin: 05/31/23 05:57 Dose: 20 mg Documented By: TRI Ondansetron HCl (Ondansetron Hcl 4 Mg/2 Ml Vial) 4 mg IVPUSH Q8H PRN PRN Reason: Nausea and Vomiting Polyethylene Glycol (Polyethylene Glycol 3350 17 Gm Powd.Pack) 17 gm PO DAILY [facility] Last Admin: 05/31/23 10:24 Dose: Not Given Documented By: BI Non-Admin Reason: mult stools Propranolol HCl (Propranolol Hcl 20 Mg Tablet) 20 mg PO TID [facility]; Protocol Last Admin: 05/31/23 10:23 Dose: 20 mg Documented By: BI Senna (Sennosides 8.6 Mg Tablet) 8.6 mg PO DAILY PRN PRN Reason: Constipation Senna/Docusate Sodium (Sennosides/Docusate Sodium Tablet) 2 tab PO BID [facility] Last Admin: 05/31/23 07:32 Dose: Not Given Documented By: IB Non-Admin Reason: mult BMs Sodium Biphosphate/Sodium Phosphate (Sodium Phosphate,[place]-Dibasic 133 Ml Enema) 118 ml MI DAILY PRN PRN Reason: Constipation Sodium Chloride (0.9 % Sodium Chloride Flush 3 Ml Syringe) 3 ml IVFLUSH QSHIFT [facility] Last Admin: 05/31/23 08:56 Dose: Not Given Documented By: BI Non-Admin Reason: IV Running Tamsulosin HCl (Tamsulosin Hcl 0.4 Mg Capsule) 0.4 mg PO DAILY@2100 [facility] Last Admin: 05/30/23 22:00 Dose: 0.4 mg Documented By: TRI Tramadol HCl (Tramadol Hcl 50 Mg Tablet) 50 mg PO TID@0600,1400,2200 [facility] Last Admin: 05/31/23 05:57 Dose: 50 mg Documented By: TRI Labs 05/30/23 05:23 05/30/23 05:23 Labs: Laboratory Results - last 24 hr 05/30/23 05/30/23 09:20 11:45 Urine Color Yellow Urine Appearance Clear Urine pH 5.5 Ur Specific [place] 1.025 Urine Protein Trace Urine Glucose (UA) Negative Urine Ketones Negative Urine Blood Negative Urine Nitrite Negative Ur Leukocyte Esterase Large (3+) H Urine RBC 0-2 Urine WBC >50 H Ur Squamous Epith Cells 0-2 Urine Bacteria None Seen Hyaline Casts 0-2 Respiratory Panel Muniz SEE NOTE Adenovirus (Rapid PCR) Not Detected B.pert (TEM-PCR) Not Detected B.parapertussis DNA PCR Not Detected C. pneumoniae DNA (PCR) Not Detected Coronavirus OC43 (PCR) Not Detected Coronavirus HKU1 (PCR) Not Detected Coronavirus 229E (PCR) Not Detected Coronavirus NL63 (PCR) Not Detected Human Metapneumovir PCR Not Detected Influenza A (RT-PCR) Not Detected Influenza B (RT-PCR) Not Detected M. pneumoniae (PCR) Not Detected Parainfluenza 1 (PCR) Not Detected Parainfluenza 2 (PCR) Not Detected Parainfluenza 3 (PCR) Not Detected Parainfluenza 4 (PCR) Not Detected RSV (PCR) Not Detected Entero/Rhino (PCR) Not Detected SARS-CoV-2 RNA (RT-PCR) Not Detected Microbiology Microbiology Results: Microbiology 05/29/23 20:50 Blood Culture - Preliminary Blood - Venous No growth after 24 hours. 05/29/23 20:50 Blood Culture - Preliminary Blood - Venous No growth after 24 hours. Assessment and Plan (1) Acute respiratory failure with hypoxia: Status: Acute Plan 83-year-old male past medical history of advanced dementia, AFib, history of seizures, prostate cancer is brought into the hospital with hypoxia secondary to pneumonia GPC bacteremia 1/2 start doxycycline follow final cx Acute hypoxic respiratory failure secondary to community-acquired pneumonia Negative COVID, influenza on continue ampicillin monitor respiratory status Viral panel pending BPH/prostate cancer continue finasteride seizure disorder continue antiepileptic hypothyroidism continue levothyroxine history of AFib not on any anticoagulation dementia continue mood stabilizers DVT prophylaxis:? Heparin subQ Attending Dr. Armendariz continue hospitalization for treatment of acute hypoxic respiratory failure secondary to community-acquired pneumonia Time Spent With Patient Time: Total time managing care of this patient today ____ minutes. Quality Stroke Does the patient have a stroke diagnosis?: No VTE Prior VTE?: No VTE Risk Level:: Medical - moderate - high VTE Device Contraindication: Treatment Not Indicated VTE Drug Contraindication: N/A - Med Ordered
[2023-05-31] MEDS: Doxycycline Hyclate 100 MG in 0.9 % Sodium Chloride 250 ML 166.67 MG IV ×2 (12:25→21:39)
--- NOTE | 2023-05-31 14:08 | P.CDIM_ITS ---
PROVIDER RESPONSE TEXT: To clarify, the appropriate diagnosis supported by the clinical indicators: Malnutrition: moderate QUERY TEXT: PHYSICIAN'S DOCUMENTATION REQUEST Date of Query: 05/31/2023 09:55 AM EDT Patient Name: Juan Sanders Admit Date: 05/30/2023 Dear Ember Hernandez, A review of the medical record indicates additional documentation may be needed. Please review below and update the documentation accordingly. Clinical Indicators: Clinical nutrition notes 05/30 - Patient qualifies as non severe moderate malnutrition in the context of chronic illness. BMI 19 Adding Thrive fortified ice cream to increase KCALS and protein intake. If possible, please provide an associated diagnosis related to the abnormal BMI, such as: Malnutrition mild, moderate or severe Weight loss Cachexia Anorexia BMI is not significant Other (explain)Clinically unable to determine (explain)Thank you, Sarah Sandra, CCS, CDIS Use of terms such as suspected, likely, concern for, or probable (associated with a specific diagnosi s that is being evaluated, monitored, or treated as if it exists) are acceptable and can be coded in the inpatient se tting, when documented at the time of discharge. Please use your independent medical judgment in providing your response. THIS QUERY IS PART OF THE PERMANENT MEDICAL RECORD
--- NOTE | 2023-05-31 14:08 | P.CDIM_ITS ---
PROVIDER RESPONSE TEXT: To clarify, the appropriate diagnosis supported by the clinical indicators: Diagnosis was present on admission and is now resolved QUERY TEXT: PHYSICIAN'S DOCUMENTATION REQUEST Date of Query: 05/31/2023 12:18 PM EDT Patient Name: Juan Sanders Admit Date: 05/30/2023 Dear Ember Hernandez, A review of the medical record indicates additional documentation may be needed. Please review below and update the documentation accordingly. Clinical Indicators: ED 05/29 - Chest Xray concerning for aspiration pneumonia. Clinical impression: Aspiration pneumonia Hypoxic on admit on supplemental oxygen, difficulty breathing. H&P: Patient comes into the hospital after possible aspiration pneumonia episode at [facility] during di nner. Respiratory distress, tachypnea, hypoxic. Assessment and plan: Aspiration pneumonia Plan: Acute community-acquired pneumonia, IV antibiotics The diagnosis of Aspiration pneumonia was documented on but is not consistently noted in subsequent d ocumentation. Please clarify the following: Diagnosis was present on admission and is now resolved Diagnosis was present on admission and is still being monitored, evaluated, or treated Diagnosis was ruled out Diagnosis is still a likely, suspected, probable diagnosis Other (explain)Clinically unable to determine (explain)Thank you, Sarah Sandra, CCS, CDIS Use of terms such as suspected, likely, concern for, or probable (associated with a specific diagnosi s that is being evaluated, monitored, or treated as if it exists) are acceptable and can be coded in the inpatient se tting, when documented at the time of discharge. Please use your independent medical judgment in providing your response. THIS QUERY IS PART OF THE PERMANENT MEDICAL RECORD
--- NOTE | 2023-05-31 15:00 | HO.WOUND ---
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 Patient is also combative with care. He resides at [facility]. Patient in bed at the time of the consult. He was actively picking at the right iliac crest bandage. Patient has multiple scarred areas located throughout his body. Right lateral foot had a stable, intact scabbed area. No drainage on dressing removed. Foam border reapplied for protection. Left lateral foot has a scarred area and what looked like a reabsorbed blister. Skin is intact. Foam border applied to help pad and protect. Right trochanter had scarring and what had looked like a wound at some point. There was no drainage on the bandage. At this time there is a layer of epithelium on the area. This area being on such a bony prominence will be at high risk for breaking down, so will continue to protect with foam border. There is an unstageable pressure injury on the right iliac crest. Moderate serosanguineous drainage on dressing removed. No odor. Wound edges were attached and well defined. Wound bed was all slough. Surrounding skin intact. Wound measured 2.7cm x2.5cm x 0.1cm. Santyl applied to wound bed. Covered with foam border. 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 Moderate serosanguineous drainage on dressing removed. Surrounding skin is intact. Wound edges are epiboled and not attached. Wound bed appearance was half yellow and half deep red. There is undermining from 12 o'clock to 12 o'clock of 1.7cm. Wound measured 1.4cm x 1.6cm x 0.9cm. Santyl was already ordered for this wound. Did continue to put santyl in the wound but also used alginate ag to lightly pack in the undermining space with the santyl. Covered with foam border. Recommendation: For the areas with foam boarders being applied for padding and extra protection, foam borders may be left in place for 4-7 days depending on the condition of the surrounding skin, but with this patient being at high risk for skin breakdown, may be changed every 2-3 days to keep an eye on these areas and as needed if soiled. Nutrition will be a huge factor in healing these wounds as well as repositioning frequently as tolerated with this patient. This patient would also benefit from an air mattress. Pravelon boots are in the room but per the staff patient kicks them off constantly. As for the right iliac crest wound, cleanse with sea clense wound cleanser or normal saline. Apply a kamini thick amount of santyl to the wound bed. Cover with a foam border daily. For the left trochanter/hip wound, cleanse with sea clense wound cleanser or normal saline. Apply a kamini thick amount of santyl to the wound bed, then cut a long strip of alginate ag and light pack into underming area. Cover with a foam border daily. If there are any questions or concerns, please reconsult wound care.
[2023-05-31] MEDS: 0.9 % Sodium Chloride Flush 3 ML SYRINGE IVFLUSH ×2 (16:05→21:45)
--- NOTE | 2023-05-31 16:18 | MHC.SPEECHCO ---
Pt aggravated and batting away PO when offered, RN was able to provide small bites of crushed medications. Per CM, Pt returning to [facility] today or tomorrow. MARKETING PROGRAM COORDINATOR will continue to follow.
[2023-05-31 16:47] VITALS: BP 121/56; PULSE 73; RESP 20; TEMP 36.3; O2SAT 94
[2023-05-31 19:46] VITALS: BP 133/60; PULSE 80; RESP 18; TEMP 36.4; O2SAT 94
[2023-05-31] MEDS: Sennosides/Docusate Sodium TABLET 2 TAB PO (21:37)
[2023-05-31] MEDS: Atorvastatin Calcium 20 MG TABLET PO (21:38)
[2023-05-31] MEDS: Lactulose 20 GM/30 ML SOLUTION PO (21:38)
[2023-06-01] MEDS: Levothyroxine Sodium 112 MCG TABLET PO (05:57)
[2023-06-01] MEDS: traMADoL HCL 50 MG TABLET PO (05:57)
[2023-06-01] MEDS: Metoclopramide HCl 10 MG TABLET PO (06:00)
[2023-06-01] MEDS: bisacodyL 10 MG SUPP.RECT PR (06:00)
[2023-06-01 07:19] VITALS: BP 145/75; PULSE 86; RESP 20; TEMP 36.2; O2SAT 96
[2023-06-01] MEDS: Ampicillin Sodium/Sulbactam Na 3 GM in 0.9 % Sodium Chloride 100 ML IV (09:12)
[2023-06-01] MEDS: Propranolol HCL 20 MG TABLET PO (09:15)
[2023-06-01] MEDS: 0.9 % Sodium Chloride Flush 3 ML SYRINGE IVFLUSH (09:16)
[2023-06-01] MEDS: polyethylene glycoL 3350 17 GM POWD.PACK PO (09:16)
[2023-06-01] MEDS: Multivitamin TABLET 1 TAB PO (09:17)
[2023-06-01] MEDS: Sennosides/Docusate Sodium TABLET 2 TAB PO (09:17)
[2023-06-01] MEDS: levETIRAcetam Oral Soln 500 MG/5 ML PO (09:17)
[2023-06-01] MEDS: Gabapentin 100 MG CAPSULE PO (09:17)
[2023-06-01] MEDS: Heparin Sodium,Porcine 5,000 UNIT/ML VIAL 5000 UNIT SUBCUT (09:17)
[2023-06-01] MEDS: Lactulose 20 GM/30 ML SOLUTION PO (09:17)
[2023-06-01] MEDS: Aspirin Enteric Coated 81 MG TABLET.DR PO (09:17)
[2023-06-01] MEDS: Finasteride 5 MG TABLET PO (09:18)
--- NOTE | 2023-06-01 10:46 | MHC.CLN ---
F/U DIET=PUREE CONSISTENCY AND NECTAR THICK LIQUIDS. 1:1 FEEDING ASSISTANCE AND ASPIRATION PRECAUTIONS. MULTIPLE AREAS OF IMPAIRED SKIN: BILATERAL FEET; BILATERAL HIPS; RIGHT ILIAC CREST. THRIVE FORTIFIED ICE CREAM TO INCREASE KCALS AND PROTEIN INTAKE. THRIVE BID PROVIDES 540 KCALS, 18 G PROTEIN. PO POOR. PATIENT WITH AGITATION AND RESISTIVE TO CARE, INCLUDING FEEDING. CURRENT INTAKE DOES NOT MEET ESTIMATED NUTRITIONAL NEEDS. ENCOURAGE INTAKE ABLE. FOLLOW FOR INTAKE AND SKIN INTEGRITY.
--- NOTE | 2023-06-01 12:15 | MHC.CM.PN ---
arrangements made for pt to be transfered today back to [facility] spoke w/iam vázquez on [place]
--- NOTE | 2023-06-01 12:59 | MHC.SL.SWA ---
Risk of Aspiration Due to: Neurological Condition History of Pneumonia Reduced Cognition Dysphasia Diet Status: UPGRADE solids Liquid Consistency and Strategies for Safe Swallow: Liquid Intake Recommendation: Holly Thick Liquid Intake Strategies: Small Sips No Straws Solid Food Consistency: Dietary Recommendations: Grnd/Mech Altered (NDD2) Oral Medication Intake: Crushed with Puree Please contact the pharmacy regarding appropriate crushable or liquid drug formulations that are available whenever modified delivery is recommended. Compensatory Strategies and Precautions to be Taken for Safe Swallow: Sitting Upright (90 deg) Supervision While Eating and Drinking for Safe Swallow: Total Assistance (1:1) Swallowing Recommended Treatments: Compens. Strategy Educat. Recommendation for Speech: Inpatient Speech Therapy Comment: Recommend GROUND/MECH ALTERED solids (NDD2) and NECTAR THICK liquids (no straws), pills CRUSHED in PUREE. Pt w/ hx dementia, COPD, schizophrenia, occipital infarction. Pt requires total 1:1 assistance feeding and strict aspiration precautions. Reported baseline at [facility] is soft and bite size diet with thin liquids. Recommend continued dysphagia tx at next level of care. Nursing Informatics Analyst Clinican/Clinical Fellow: No Supervisory Statement: I have reviewed and agree with the student/clinical fellow's documentation: N/A Speech Language Pathologist: Li Robles M.A., CCC-MOBILITY MANAGER
== END 2023-06-01 13:10 | disposition home or self-care (01) | DRG 177 ==
LOC: HO.ED 23:20 → HO.EDOVER 23:35 → HO.S3 05-30 05:22
PROVIDERS: Nurse Practitioner Family; Admitting Provider Internal Medicine; Emergency Provider Emergency Medicine; PCP Hospitalist; Visit Provider Nurse Practitioner Acute Care
DX: J69.0 Pneumonitis due to inhalation of food and vomit (principal); J96.01 Acute respiratory failure with hypoxia; F03.911 Unspecified dementia, unspecified severity, with agitation; E44.0 Moderate protein-calorie malnutrition; Z68.1 Body mass index [BMI] 19.9 or less, adult; R78.81 Bacteremia; F03.90 Unspecified dementia, unspecified severity, without behavioral disturbance, psychotic disturbance, mood disturbance, and anxiety; I48.91 Unspecified atrial fibrillation; C61 Malignant neoplasm of prostate; E03.9 Hypothyroidism, unspecified; N40.0 Benign prostatic hyperplasia without lower urinary tract symptoms; G40.909 Epilepsy, unspecified, not intractable, without status epilepticus; Z20.822 Contact with and (suspected) exposure to COVID-19; Z79.82 Long term (current) use of aspirin; Z79.890 Hormone replacement therapy; Z79.899 Other long term (current) drug therapy
CPT/HCPCS: 36415; 71045; 80048; 80076; 81001; 81003; 83605; 83735; 84484; 85025; 85610; 87040; 87086; 87147; 87205; 87502; 87633; 87635; 92526; 92610; 93005; 99285; J0295; J0692; J1643

== ENCOUNTER → 2023-05-29 23:22 | Outpatient (BNV) | payer MEDICARE, MEDICAID, SELFPAY | PROVIDERS: Admitting Provider Internal Medicine; Emergency Provider Emergency Medicine; PCP Hospitalist; Visit Provider Internal Medicine | DX: J96.01 Acute respiratory failure with hypoxia (principal) | CPT/HCPCS: 99223; 99232; 99239 ==

== ENCOUNTER 2023-08-11 13:46 | Inpatient (IN) | payer MEDICARE, MEDICAID, SELFPAY ==
--- NOTE | ~2023-08-11 | XR_ITS ---
EXAMINATION: XR CHEST CLINICAL INFORMATION: Possible aspiration. COMPARISON: Chest x-ray May 29, 2023 TECHNIQUE: Frontal portable view of the chest was obtained. 1534 hours FINDINGS: Lungs are clear. Previously seen 9 mm nodule over the right side of the chest on prior chest x-ray is not present on this exam. No pulmonary vascular congestion. There is no pleural effusion. The heart size is normal. The cardiac and mediastinal contours are normal. There are calcifications of the thoracic aorta. There are multilevel degenerative changes of dorsal spine. XR/XR chest 1V IMPRESSION: Unremarkable examination.
--- NOTE | 2023-08-11 13:59 | ECG_ITS ---
Test Reason : GENERAL MEDICAL Blood Pressure : / mmHG Vent. Rate : 088 BPM Atrial Rate : 088 BPM P-R Int : 130 ms QRS Dur : 076 ms QT Int : 368 ms P-R-T Axes : 068 -36 -10 degrees QTc Int : 445 ms Normal sinus rhythm Left anterior fascicular block Nonspecific T wave abnormality Abnormal ECG When compared with ECG of 29-MAY-2023 21:39, T wave inversion now evident in Anterior leads Referred By: Latonya Pressley Electronically Signed By:NAVI DIAZ MD
--- NOTE | 2023-08-11 14:01 | ED_ITS ---
HPI - General Adult General Chief complaint: Recheck/Abnormal Lab/Rx Stated complaint: ABNORMAL LABS,INC SODIUM Time Seen by Provider: 08/11/23 13:52 Source: EMS Mode of arrival: wheelchair Limitations: altered mental status History of Present Illness HPI narrative: patient comes to the emergency room from [facility]. Earlier today, patient had blood work done, showed a sodium of 154, patient transferred to the hospital for the reason. Patient has history of gout bands dementia and is unable to answer any questions. Patient is awake, alert, but unable to engage in a coherent conversation. Related Data Home Medications Medication Instructions Recorded Confirmed acetaminophen 325 mg tablet 650 mg PO Q4H PRN PAIN/TEMP 12/30/21 08/11/23 atorvastatin 20 mg tablet 20 mg PO BEDTIME 12/30/21 08/11/23 bisacodyl 10 mg rectal suppository 10 mg [place] MOWEFR 12/30/21 08/11/23 esomeprazole magnesium 40 mg 40 mg PO BID@0630,1630 12/30/21 08/11/23 capsule,delayed release (Nexium) gabapentin 100 mg capsule 100 mg PO BID 12/30/21 08/11/23 haloperidol decanoate 50 mg/mL 10 mg IM Q14D 12/30/21 08/11/23 intramuscular solution (Haldol Decanoate) lactulose 10 gram/15 mL oral 20 g PO BID 12/30/21 08/11/23 solution multivitamin 1 tab PO DAILY 12/30/21 08/11/23 propranolol 20 mg tablet 20 mg PO TID 12/30/21 08/11/23 sennosides 8.6 mg tablet (senna) 8.6 mg PO DAILY PRN Constipation 12/30/21 08/11/23 sennosides 8.6 mg-docusate sodium 2 tab PO BID 12/30/21 08/11/23 50 mg tablet (Senna Plus) tamsulosin 0.4 mg capsule 0.4 mg PO DAILY@2100 12/30/21 08/11/23 tramadol 50 mg tablet 50 mg PO TID 12/30/21 08/11/23 metoclopramide HCl 10 mg tablet 10 mg PO BIDAC 02/06/22 08/11/23 acidophilus 100 million 1 cap PO DAILY 11/15/22 08/11/23 cell-pectin, citrus 10 mg capsule aspirin 81 mg capsule 81 mg PO DAILY 12/21/22 08/11/23 bisacodyl 10 mg rectal suppository 10 mg [place] DAILY PRN Constipation 12/21/22 08/11/23 bisacodyl 5 mg tablet 5 mg PO BEDTIME 12/21/22 08/11/23 sodium phosphates 19 gram-7 118 ml [place] DAILY PRN Constipation 12/21/22 08/11/23 gram/118 mL enema (Fleet Enema) levothyroxine 112 mcg tablet 112 mcg PO DAILY 05/30/23 08/11/23 levetiracetam 500 mg tablet 500 mg PO BID 08/11/23 08/11/23 Previous Rx's Medication Instructions Recorded finasteride 5 mg tablet 5 mg PO DAILY 90 days #90 tabs 07/30/22 polyethylene glycol 3350 17 gram 17 g PO DAILY #30 ea 11/18/22 oral powder packet Allergies Allergy/AdvReac Type Severity Reaction Status Date / Time No Known Allergies Allergy Verified 05/29/23 19:18 [No Known Allergies*] Review of Systems 2 Review of Systems: Yes Unobtainable due to mental condition [facility] Past Medical History Medical History Urinary retention Dementia Urinary tract infection Moderate protein-calorie malnutrition Occipital infarction Atrial fibrillation BPH loc w urin obs/LUTS Dementia Schizophrenia COPD (chronic obstructive pulmonary disease) Prostate cancer Malignant neoplasm of prostate Family History Family History Other Family history unknown Social History Social History Household Members: Other Household Members Other:: SNF Housing: Retirement Housing Other:: Per notes: [facility] Unable to assess alcohol history related to: Unknown Alcohol intake: unknown Patient Tobacco Use Status: Tobacco use Unknown Second Hand Smoke Exposure: No Advance Directives: Yes Advance Directives on File: Yes Advance Directives Date on File: 05/18/22 service: No Current occupational status: disabled Physical Exam ED Vital Signs: Vital Signs - 24 hr 08/11/23 14:41 Temperature 98.3 F Pulse Rate 89 Respiratory Rate 34 H Blood Pressure 116/72 Pulse Oximetry 94 Oxygen Delivery Method Nasal Cannula BMI result Body Mass Index 23.4 Const Other: Appearance: Alert. talking but incoherent, patient curled up in position Eyes: Pupils equal, round and reactive to light. ENT: Pharynx normal. dry oral mucous membranes Neck: Normal inspection. Neck supple. No lymph nodes noted. No crepitus CVS: Normal heart rate and rhythm. Pulses normal. Normal S1 and S2 Respiratory: No respiratory distress. Breath sounds normal. No Wheezing. No rales Abdomen: Soft and nontender. No rigidity. No distention. Skin: Skin warm and dry. Normal skin color. Normal skin turgor. Extremities: No lower extremity edema. chronic bilateral contractures, No Lacerations. No Rash Neuro: unable to participating cranial nerve assessment Psych: calm, not coherent Course Course Course Narrative: - all of patient's labs and imaging pending Medical Decision Making Medical Decision Making [facility] Narrative: - patient's sodium 151, lactic acid 4.4, likely secondary to dehydration. - Patient's white blood cell count normal, no fever, stable vitals, Sepsis or infection is not suspected. - patient's fluids are being repleted with D5W - my interpretation of chest x-ray: No infiltrates, radiology report pending - patient's nurse called care 1, confirmed that patient is a full code Differential Diagnosis Differential Diagnoses: The differential diagnosis associated with the presentation includes Admission/Observation Consideration of admission/observation: Escalation of care including admission/observation considered Consult Healthcare Provider Management of the patient was discussed with: Hospitalist Lab Data [facility] Lab Attestation statement: I reviewed the patient's lab results. 08/11/23 14:39 08/11/23 14:39 Labs: Lab Results 08/11/23 Range/Units 14:39 WBC 7.5 (4.8-10.8) X10*3/uL RBC 4.81 (4.60-5.80) X10*6/uL Hgb 10.9 L (14.0-18.0) g/dl Hct 37.2 L (42.0-52.0) % MCV 77.3 L (80.0-98.0) fL MCH 22.7 L (27.0-33.0) pg MCHC 29.3 L (31.0-36.0) g/dl RDW 20.0 H (11.0-16.0) % Plt Count 426 H D (160-400) X10*3/uL MPV 9.5 (9.4-12.4) fL Immature Gran % (Auto) 1.1 H (0.0-0.4) % Neut % (Auto) 64.2 (45-73) % Lymph % (Auto) 23.2 (20-40) % [place] % (Auto) 10.5 (2-11) % Eos % (Auto) 0.5 (0-4) % Baso % (Auto) 0.5 (0-2) % Lymph # (Auto) 1.7 (1.2-4.9) X10*3/uL [place] # (Auto) 0.8 (0.1-1.2) X10*3/uL Eos # (Auto) 0.0 (0.0-0.4) X10*3/uL Baso # (Auto) 0.0 (0.0-0.2) X10*3/uL Abs Immat Gran (auto) 0.08 H (0.00-0.03) X10*3/uL Absolute Neuts (auto) 4.8 (2.0-8.3) x10*3/uL Absolute Nucleated RBC 0.000 (0.0-0.012) X10*3/uL Nucleated RBC % (auto) 0.0 (0.0-0.2) /100WBC PT 13.2 (11.1-13.3) SEC INR 1.1 (0.9-1.1) Sodium 151 H (135-145) mmol/L Potassium 4.8 (3.3-5.1) mmol/L Chloride 117 H (96-108) mmol/L Carbon Dioxide 23 (22-29) mmol/L Anion Gap 16 (12-20) BUN 39 H (9-16) mg/dL Creatinine 1.41 H (0.5-1.4) mg/dL Estim Creat Clear Calc 27.0 Estimated GFR 48 Random Glucose 221 H (60-115) mg/dL Lactic Acid 4.4 H* (0.5-2.0) mmol/L Calcium 8.8 D (8.4-10.2) mg/dL Magnesium 2.5 (1.6-2.6) mg/dL Total Bilirubin 0.2 (0.0-1.0) mg/dL Direct Bilirubin < 0.2 (0.0-0.5) mg/dL AST 34 (5-37) U/L ALT 23 (0-40) U/L Alkaline Phosphatase 101 (39-117) U/L Troponin I High Sens 22.8 D (<3.5-35.0) ng/L Total Protein 7.9 (6.5-8.0) g/dL Albumin 3.0 L (3.5-5.0) g/dL COVID-19 ([facility]) Negative (Negative) COVID-19 Clin Com See Note Critical Care Time Critical Care Time Critical Care Time: Yes Total Critical Care Time: 75 Attestation: I have personally provided critical care time. Time includes review of lab data, radiology results, discussion with consultants, and monitoring for potential decompensation. Intervention performed as documented. Discharge Plan Discharge Clinical Impression: Acute hypernatremia, Dehydration Patient Disposition: Admitted As Inpatient Prescriptions: No Action acetaminophen 325 mg Tablet 650 mg PO Q4H PRN (Reason: PAIN/TEMP) atorvastatin 20 mg Tablet 20 mg PO BEDTIME bisacodyl 10 mg Suppository 10 mg [place] MOWEFR Rx Instructions: mon,wed,fri gabapentin 100 mg Capsule 100 mg PO BID haloperidol decanoate [Haldol Decanoate] 50 mg/mL Solution 10 mg IM Q14D lactulose 10 gram/15 mL Solution 20 g PO BID esomeprazole magnesium [Nexium] 40 mg Capsule,Delayed Release(Dr/Ec) 40 mg PO BID@0630,1630 multivitamin Tablet 1 tab PO DAILY propranolol 20 mg Tablet 20 mg PO TID sennosides [senna] 8.6 mg Tablet 8.6 mg PO DAILY PRN (Reason: Constipation) sennosides-docusate sodium [Senna Plus] 8.6-50 mg Tablet 2 tab PO BID tamsulosin 0.4 mg Capsule 0.4 mg PO DAILY@2100 tramadol 50 mg Tablet 50 mg PO TID Rx Instructions: GIVE 8 HOURS APART FROM SCHEDULED DOSE metoclopramide HCl 10 mg Tablet 10 mg PO BIDAC acidophilus-pectin, citrus 100 million cell-10 mg Capsule 1 cap PO DAILY Rx Instructions: take with a meal polyethylene glycol 3350 17 gram Powder In Packet 17 g PO DAILY Qty: 30 0RF aspirin 81 mg Capsule 81 mg PO DAILY Hold Instructions: MD medrano [facility] to decide when to restart if needed bisacodyl 10 mg Suppository 10 mg [place] DAILY PRN (Reason: Constipation) Rx Instructions: if senna is ineffetive bisacodyl 5 mg Tablet 5 mg PO BEDTIME Fleet Enema 19-7 gram/118 mL Enema 118 ml KY DAILY PRN (Reason: Constipation) Rx Instructions: if bisacodyl suppository is ineffective levetiracetam 500 mg Tablet 500 mg PO BID levothyroxine 112 mcg tablet 112 mcg PO DAILY finasteride 5 mg tablet 5 mg PO DAILY 90 Days Qty: 90 3RF
[2023-08-11 14:41] VITALS: BP 116/72; PULSE 89; RESP 34; TEMP 36.8; O2SAT 94; BMI 23.4
[2023-08-11 14:44] LABS: MANUAL DIFF FLAG NO
[2023-08-11 14:49] LABS: Basophils Percent Auto 0.5 % (0-2); Eosinophils Percent Auto 0.5 % (0-4); Hematocrit 37.2 % (42.0-52.0); Hemoglobin 10.9 g/dl (14.0-18.0); Imm Gran Abs Auto 0.08 X10*3/uL (0.00-0.03); Imm Gran Pct Auto 1.1 % (0.0-0.4); Lymphocytes Absolute Auto 1.7 X10*3/uL (1.2-4.9); Lymphocytes Percent Auto 23.2 % (20-40); Mean Corpuscular HGB Conc 29.3 g/dl (31.0-36.0); Mean Corpuscular Hemoglobin 22.7 pg (27.0-33.0); Mean Corpuscular Volume 77.3 fL (80.0-98.0); Mean Platelet Volume 9.5 fL (9.4-12.4); Monocytes Absolute Auto 0.8 X10*3/uL (0.1-1.2); Monocytes Percent Auto 10.5 % (2-11); Neutrophils Absolute Auto 4.8 x10*3/uL (2.0-8.3); Neutrophils Percent Auto 64.2 % (45-73); Platelet Count 426 X10*3/uL (160-400); Red Blood Count 4.81 X10*6/uL (4.60-5.80); White Blood Count 7.5 X10*3/uL (4.8-10.8)
[2023-08-11 14:57] LABS: INTERNATIONAL NORM RATIO 1.1 (0.9-1.1); Prothrombin Time 13.2 SEC (11.1-13.3)
[2023-08-11 15:03] LABS: Alanine Aminotransferase 23 U/L (0-40); Alkaline Phosphatase 101 U/L (39-117); Anion Gap 16 (12-20); Aspartate Amino Transferase 34 U/L (5-37); Bilirubin Direct < 0.2 mg/dL (0.0-0.5); Bilirubin Total 0.2 mg/dL (0.0-1.0); Blood Urea Nitrogen 39 mg/dL (9-16); Calcium 8.8 mg/dL (8.4-10.2); Carbon Dioxide 23 mmol/L (22-29); Chloride 117 mmol/L (96-108); Estimated Glomerular Filt Rate 48; Glucose Random 221 mg/dL (60-115); Magnesium 2.5 mg/dL (1.6-2.6); Potassium 4.8 mmol/L (3.3-5.1); Sodium 151 mmol/L (135-145); Total Protein 7.9 g/dL (6.5-8.0)
[2023-08-11 15:05] LABS: Lactic Acid 4.4 mmol/L (0.5-2.0)
[2023-08-11 15:07] LABS: Troponin-I High Sensitivity 22.8 ng/L (<3.5-35.0)
--- NOTE | 2023-08-11 15:10 | PC.NURSE ---
called [facility] in [place] to obtain code status, per facility patient is a full code
--- NOTE | 2023-08-11 15:11 | PC.NURSE ---
Addendum entered by Courtney Muñoz 08/11/23 15:14: sleeping with mouth open, oxygen dropping to mid 80's. placed on oxymask now at 94%. Original Note: arriving from [facility] for abnormal lab work. patient contracted at baseline, photos taken of wounds on patient bilateral hip. changed into hospital attire, iv established labs drawn and sent.
[2023-08-11 15:18] LABS: COVID-19 Test Negative (Negative); IDNOW Serial# 9DB6401D
--- NOTE | 2023-08-11 15:39 | PHA.MEDREC ---
Pharmacy Consult ? Medication Reconciliation Pharmacy has completed the medication reconciliation. Patient came from [facility] with med list. Marianela Mosqueda, RebekahD
[2023-08-11] MEDS: Dextrose 5 % 1,000 ML 125 ML IVCONT (16:30)
[2023-08-11 16:31] VITALS: BP 104/60; PULSE 87; RESP 30; O2SAT 98
[2023-08-11 16:43] LABS: Reflex Lactate? Lactic Acid Added
--- NOTE | 2023-08-11 17:27 | P.HPHOSP_ITS ---
History of Present Illness Date of Service: 08/11/23 Chief Complaint: hypernatremia 83-year-old gentleman resident of [facility] with past medical history of atrial fibrillation, COPD, advanced dementia, prostate cancer, schizophrenia was sent in to [facility] due to abnormal labs that showed an elevated sodium level, due to advanced dementia patient is unable to provide any meaningful history repeat labs in ED showed a sodium of 151 chloride of 117 elevated creatinine of 1.41 with a baseline creatinine of 0.74 patient Actiq acid is 4.4 with a random blood glucose of 221, albumin of 3, WBC 7.5 is stable hemoglobin hematocrit and platelet count of 426, urinalysis not obtained, patient placed on IV fluid and I is now being admitted to [facility] for further treatment and evaluation of acute kidney injury and hypernatremia likely due to decreased by mouth intake. Review of Systems 2 Review of Systems: Unable to obtain due to mental status [facility] Medical History Urinary retention Dementia Urinary tract infection Moderate protein-calorie malnutrition Occipital infarction Atrial fibrillation BPH loc w urin obs/LUTS Dementia Schizophrenia COPD (chronic obstructive pulmonary disease) Prostate cancer Malignant neoplasm of prostate Family History Other Family history unknown Social History Household Members: Unknown / Unable to assess Household Members Other:: SNF Housing: Snf Housing Other:: Per notes: [facility] Do you presently have visiting nurse or other home services: No Unable to assess alcohol history related to: Unknown Alcohol intake: unknown Patient Tobacco Use Status: Tobacco use Unknown Second Hand Smoke Exposure: No Use of substances other than those prescribed or required for medical reasons: No Currently Displaying Signs/Symptoms of Drug Intoxication Withdrawal: No Have you been hit, kicked, punched, or otherwise hurt by someone within the past year? If so, by whom?: No Do you feel safe in your current relationship?: No Current Relationship Is there a partner from a previous relationship who is making you feel unsafe now?: No Are you made to feel afraid or neglected: No Advance Directives: Yes Advance Directives on File: Yes Advance Directives Date on File: 05/18/22 Do you have thoughts of harming others: None Do you have a plan to hurt others: No Plan Recently lost weight without trying: Unsure Eating poorly because of decreased appetite: No Nutrition Risks: On aspiration precautions Poor oral hygiene: Yes service: No Current occupational status: disabled Meds Allergies Allergy/AdvReac Type Severity Reaction Status Date / Time No Known Allergies Allergy Verified 05/29/23 19:18 [No Known Allergies*] Active Medications: Current Medications Acetaminophen (Acetaminophen 325 Mg Tablet) 650 mg PO Q4H PRN PRN Reason: PAIN/TEMP Acetaminophen (Acetaminophen 325 Mg Tablet) 650 mg PO Q6H PRN PRN Reason: Pain, Mild (Pain Scale 1-3) Aspirin (Aspirin Enteric Coated 81 Mg Tablet.) 81 mg PO DAILY [facility] Atorvastatin Calcium (Atorvastatin Calcium 20 Mg Tablet) 20 mg PO BEDTIME [facility] Bisacodyl (Bisacodyl 10 Mg Supp.Rect) 10 mg CO MoWeFr@0900 TERESE Bisacodyl (Bisacodyl 10 Mg Supp.Rect) 10 mg CO DAILY PRN PRN Reason: Constipation Bisacodyl (Bisacodyl 5 Mg Tablet.Dr) 5 mg PO BEDTIME [facility] Enoxaparin Sodium (Enoxaparin Sodium 30 Mg/0.3 Ml Syringe) 30 mg SUBCUT Q24H [facility] Finasteride (Finasteride 5 Mg Tablet) 5 mg PO DAILY [facility] Gabapentin (Gabapentin 100 Mg Capsule) 100 mg PO BID [facility] Dextrose (D5w) 1,000 mls @ 125 mls/hr IVCONT .Q8H [facility] Last Admin: 08/11/23 16:30 Dose: 125 mls/hr Dextrose/Sodium Chloride (D51/2ns) 1,000 mls @ 100 mls/hr IVCONT .Q10H [facility] Lactulose (Lactulose 20 Gm/30 Ml Solution) 20 gm PO BID [facility] Levetiracetam (Levetiracetam 500 Mg Tablet) 500 mg PO BID [facility] Levothyroxine Sodium (Levothyroxine Sodium 112 Mcg Tablet) 112 mcg PO DAILY@0600 [facility] Metoclopramide HCl (Metoclopramide Hcl 10 Mg Tablet) 10 mg PO BIDAC [facility] Multivitamins/Vitamin C (Multivitamin Tablet) 1 tab PO DAILY [facility] Ondansetron HCl (Ondansetron Hcl 4 Mg/2 Ml Vial) 4 mg IVPUSH Q8H PRN PRN Reason: Nausea and Vomiting Polyethylene Glycol (Polyethylene Glycol 3350 17 Gm Powd.Pack) 17 gm PO DAILY [facility] Propranolol HCl (Propranolol Hcl 10 Mg Tablet) 10 mg PO TID [facility]; Protocol Senna (Sennosides 8.6 Mg Tablet) 8.6 mg PO DAILY PRN PRN Reason: Constipation Senna/Docusate Sodium (Sennosides/Docusate Sodium Tablet) 2 tab PO BID [facility] Sodium Biphosphate/Sodium Phosphate (Sodium Phosphate,[place]-Dibasic 133 Ml Enema) 118 ml CO DAILY PRN PRN Reason: Constipation Sodium Chloride (0.9 % Sodium Chloride Flush 3 Ml Syringe) 3 ml IVFLUSH QSHIFT [facility] Tamsulosin HCl (Tamsulosin Hcl 0.4 Mg Capsule) 0.4 mg PO DAILY@2100 [facility] Home Medications Medication Instructions Recorded Confirmed Last Taken Type acetaminophen 325 mg tablet 650 mg PO Q4H PRN PAIN/TEMP 12/30/21 08/11/23 Unknown History atorvastatin 20 mg tablet 20 mg PO BEDTIME 12/30/21 08/11/23 02/05/22 History bisacodyl 10 mg rectal suppository 10 mg CO MOWEFR 12/30/21 08/11/23 12/20/22 History esomeprazole magnesium 40 mg 40 mg PO BID@0630,1630 12/30/21 08/11/23 02/06/22 History capsule,delayed release (Nexium) gabapentin 100 mg capsule 100 mg PO BID 12/30/21 08/11/23 02/06/22 History haloperidol decanoate 50 mg/mL 10 mg IM Q14D 12/30/21 08/11/23 12/09/22 History intramuscular solution (Haldol Decanoate) lactulose 10 gram/15 mL oral 20 g PO BID 12/30/21 08/11/23 02/06/22 History solution multivitamin 1 tab PO DAILY 12/30/21 08/11/23 02/06/22 History propranolol 20 mg tablet 20 mg PO TID 12/30/21 08/11/23 02/06/22 History sennosides 8.6 mg tablet (senna) 8.6 mg PO DAILY PRN Constipation 12/30/21 08/11/23 Unknown History sennosides 8.6 mg-docusate sodium 2 tab PO BID 0308/11/23 02/06/22 History 50 mg tablet (Senna Plus) tamsulosin 0.4 mg capsule 0.4 mg PO DAILY@2100 12/30/21 08/11/23 02/05/22 History tramadol 50 mg tablet 50 mg PO TID 12/30/21 08/11/23 Unknown History metoclopramide HCl 10 mg tablet 10 mg PO BIDAC 02/06/22 08/11/23 02/06/22 History acidophilus 100 million 1 cap PO DAILY 11/15/22 08/11/23 Unknown History cell-pectin, citrus 10 mg capsule aspirin 81 mg capsule 81 mg PO DAILY 12/21/22 08/11/23 Unknown History bisacodyl 10 mg rectal suppository 10 mg CO DAILY PRN Constipation 12/21/22 08/11/23 Unknown History bisacodyl 5 mg tablet 5 mg PO BEDTIME 12/21/22 08/11/23 Unknown History sodium phosphates 19 gram-7 118 ml CO DAILY PRN Constipation 12/21/22 08/11/23 Unknown History gram/118 mL enema (Fleet Enema) levothyroxine 112 mcg tablet 112 mcg PO DAILY 05/30/23 08/11/23 Unknown History levetiracetam 500 mg tablet 500 mg PO BID 08/11/23 08/11/23 Unknown History Physical Exam 2 Vital Signs and Narrative: Vital Signs: Last Vital Signs Temp 98.3 F 08/11/23 14:41 Pulse 87 08/11/23 16:31 Resp 30 H 08/11/23 16:31 BP 104/60 08/11/23 16:31 Pulse Ox 98 08/11/23 16:31 O2 Del Method Oxymask 08/11/23 16:31 O2 Flow Rate 3 08/11/23 16:31 Oxygen Flow Rate 2 08/11/23 14:41 BMI result Body Mass Index 23.4 Const: Other: Gen: Somnolent, a rousable with verb al stimuli, in no acute distress, Ne ck: supple Lungs: clear bilaterally Heart: regular, no murmurs Abd: soft , non-tender, non- distended Ext: no edema Skin: warm/w ell-perfused Bilat eral hip wounds an d left buttock wou nd unstageable, no foul odor, no misty inage Musculoskele richard contraction de formity Neuro: Un able to assess riccardo entation Psych: im paired insight Results Labs 08/11/23 14:39 08/12/23 06:06 Labs: Laboratory Results - last 24 hr 08/11/23 14:39 MCV 77.3 L MCH 22.7 L MCHC 29.3 L RDW 20.0 H Plt Count 426 H D MPV 9.5 Immature Gran % (Auto) 1.1 H Neut % (Auto) 64.2 Lymph % (Auto) 23.2 [place] % (Auto) 10.5 Eos % (Auto) 0.5 Baso % (Auto) 0.5 Lymph # (Auto) 1.7 [place] # (Auto) 0.8 Eos # (Auto) 0.0 Baso # (Auto) 0.0 Abs Immat Gran (auto) 0.08 H Absolute Neuts (auto) 4.8 Absolute Nucleated RBC 0.000 Nucleated RBC % (auto) 0.0 PT 13.2 INR 1.1 Anion Gap 16 Estim Creat Clear Calc 27.0 Estimated GFR 48 Random Glucose 221 H Lactic Acid 4.4 H* Calcium 8.8 D Magnesium 2.5 Total Bilirubin 0.2 Direct Bilirubin < 0.2 AST 34 ALT 23 Alkaline Phosphatase 101 Total Protein 7.9 Albumin 3.0 L COVID-19 ([facility]) Negative COVID-19 Clin Com See Note Imaging Radiologist's Impressions: Impressions Chest X-Ray 08/11/23 15:36 IMPRESSION: Unremarkable examination. Assessment and Plan (1) Acute hypernatremia: Status: Acute (2) Pressure injury of hip, stage 2: Status: Acute Plan 79-year-old gentleman resident of [facility] transferred to [facility] due to hypernatremia patient with underlying history of schizophrenia, advanced dementia. Acute Hypernatremia likely due to poor by mouth intake will treat with D5 half- normal saline follow BMP closely Acute kidney injury likely due to poor by mouth intake treat with IV fluids follow renal function avoid hypotension. History of seizure disorder not otherwise specified continue levetiracetam History of hypothyroidism continue Synthroid History of schizophrenia continue home medication BPH continue Flomax History of AFib not on anticoagulation due to risk of bleeding, on propranolol 20 mg t.i.d. for rate control, resume Propanol low-dose to avoid hypotension. Moderate malnutrition will add supplement, nutrition consult Bilateral hip wounds / left buttock wound present on admission unstageable, continue foam dressing wound care nurse consult DVT prophylaxis subQ Lovenox In my clinical judgment patient required 2 night inpatient hospitalization for treatment of hypernatremia requiring IV fluid and close electrolyte monitoring. Quality Stroke Does the patient have a stroke diagnosis?: No VTE Prior VTE?: No VTE Risk Level:: Medical - moderate - high VTE Device Contraindication: Treatment Not Indicated VTE Drug Contraindication: N/A - Med Ordered
[2023-08-11 17:39] LABS: ~Lactic Acid-LAB USE ONLY 2.7 mmol/L (0.5-2.0)
[2023-08-11] MEDS: Enoxaparin Sodium 30 MG/0.3 ML SYRINGE SUBCUT (18:04)
[2023-08-11] MEDS: Dextrose 5 % and 0.45 % NaCl 1,000 ML 100 ML IVCONT (18:05)
--- NOTE | 2023-08-11 18:18 | PC.NURSE ---
fluids continue to infuse at this time, patient remains combative when attempting to move patient. resting quietly in room, remains on the oxymask that has to continuously be repositioned.
[2023-08-11 19:27] LABS: Reflex Lactate? 2 Y
[2023-08-11 20:23] VITALS: PULSE 88; RESP 26; TEMP 36.7; O2SAT 97
[2023-08-11 20:33] LABS: ~Lactic Acid-LAB USE ONLY 1.8 mmol/L (0.5-2.0)
--- NOTE | 2023-08-11 20:35 | PC.NURSE ---
Nurse to nurse report given to LONNY Krause at [facility], patient to be transported to [facility] by proof technician.
[2023-08-11 21:03] VITALS: BP 110/59; PULSE 87; RESP 17; TEMP 36.2; O2SAT 94
[2023-08-11] MEDS: Gabapentin 100 MG CAPSULE PO (22:04)
[2023-08-11] MEDS: Lactulose 20 GM/30 ML SOLUTION PO (22:04)
[2023-08-11] MEDS: Propranolol HCL 10 MG TABLET PO (22:04)
[2023-08-11] MEDS: Tamsulosin HCL 0.4 MG CAPSULE PO (22:04)
[2023-08-11] MEDS: Atorvastatin Calcium 20 MG TABLET PO (22:04)
[2023-08-11] MEDS: Sennosides/Docusate Sodium TABLET 2 TAB PO (22:04)
[2023-08-11] MEDS: levETIRAcetam 500 MG TABLET PO (22:05)
[2023-08-11] MEDS: bisacodyL 5 MG TABLET.DR PO (22:06)
--- NOTE | 2023-08-11 22:32 | HO.SKINPHOTO ---
Location: right hip Category: Stage: Length: 3 Width: 3 Depth: cm Location: left hip Category: Stage: Length: 2 Width: 2 Depth: cm Location: left buttock Category: Stage: Length: 1 Width: 1 Depth: cm Location: Category: Stage: Length: Width: Depth: cm Location: Category: Stage: Length: Width: Depth: cm Location: Category: Stage: Length: Width: Depth: cm
[2023-08-12] VITALS: BP 133/56; PULSE 75; RESP 17; TEMP 36.6; O2SAT 96
[2023-08-12] MEDS: Dextrose 5 % and 0.45 % NaCl 1,000 ML 100 ML IVCONT ×3 (04:11→21:59)
[2023-08-12 07:03] LABS: Anion Gap 9 (12-20); Blood Urea Nitrogen 31 mg/dL (9-16); Calcium 8.4 mg/dL (8.4-10.2); Carbon Dioxide 28 mmol/L (22-29); Chloride 117 mmol/L (96-108); Creatinine Clr Calc Pharmacy 43.4; Estimated Glomerular Filt Rate > 60; Glucose Random 93 mg/dL (60-115); Potassium 4.2 mmol/L (3.3-5.1); Sodium 150 mmol/L (135-145)
[2023-08-12 08:00] VITALS: BP 140/65; PULSE 65; RESP 18; TEMP 36.2; O2SAT 98
[2023-08-12] MEDS: Gabapentin 100 MG CAPSULE PO ×2 (08:41→20:09)
[2023-08-12] MEDS: Metoclopramide HCl 10 MG TABLET PO (08:41)
[2023-08-12] MEDS: Lactulose 20 GM/30 ML SOLUTION PO (08:41)
[2023-08-12] MEDS: polyethylene glycoL 3350 17 GM POWD.PACK PO (08:41)
[2023-08-12] MEDS: Aspirin Enteric Coated 81 MG TABLET.DR PO (08:41)
[2023-08-12] MEDS: Propranolol HCL 10 MG TABLET PO (08:41)
[2023-08-12] MEDS: Finasteride 5 MG TABLET PO (08:42)
[2023-08-12] MEDS: Multivitamin TABLET 1 TAB PO (08:42)
[2023-08-12] MEDS: Sennosides/Docusate Sodium TABLET 2 TAB PO ×2 (08:42→20:10)
[2023-08-12] MEDS: levETIRAcetam 500 MG TABLET PO ×2 (08:42→20:09)
[2023-08-12 11:13] VITALS: BMI 19.3
--- NOTE | 2023-08-12 11:35 | MHC.CLN ---
NUTRITION CONSULT FOR PRESSURE INJURIES. DIET=PUREE. STAGE II PRESSURE INJURIES TO BILATERAL HIPS AND LEFT BUTTOCK. ADDING ENSURE MAX PROTEIN TID TO PROMOTE WOUND HEALING. PROVIDES 450 KCALS, 90 G PROTEIN. NUTRITION DX NON SEVERE, MODERATE MALNUTRITION IN THE CONTEXT OF CHRONIC ILLNESS. MODERATE DEPLETION OF BODY FAT IN ORBITAL. MODERATE DEPLETION OF MUSCLE MASS IN CLAVICLE AND SHOULDERS. FOLLOW FOR DIET TOLERANCE, INTAKE, AND WOUND HEALING.
--- NOTE | 2023-08-12 11:52 | HO.PM.IMPN ---
Subjective Subjective Date of Service: 08/12/23 Interval History: Resting in bed awake , unable to obtain history due to mental status with underlying advanced dementia, schizophrenia does not appear to be in acute distress vitals are stable, no nausea no vomiting no fevers noted. Review of Systems All other system reviewed and negative. Physical Exam Vital Signs: Vital Signs: Last Vital Signs Temp 97.1 F 08/12/23 08:00 Pulse 65 08/12/23 08:00 Resp 18 08/12/23 08:00 BP 140/65 H 08/12/23 08:00 Pulse Ox 98 08/12/23 08:00 O2 Del Method Room Air 08/12/23 08:00 O2 Flow Rate 3 08/11/23 16:31 Oxygen Flow Rate 2 08/11/23 14:41 BMI result Body Mass Index 19.3 Const: Other: Gen: awake, does not verbalize, in no acute distress, Neck: supple Lungs: clear bilaterally Heart: regular, no murmurs Abd: soft, non-tender, non-distended Ext: no edema Skin: warm/well-perfused Bilateral hip wounds and left buttock wound unstageable, no foul odor, no drainage Musculoskeletal contraction deformity Neuro: Unable to assess orientation Psych: impaired insight Objective Data Active Medications Acetaminophen (Acetaminophen 325 Mg Tablet) 650 mg PO Q4H PRN PRN Reason: PAIN/TEMP Acetaminophen (Acetaminophen 325 Mg Tablet) 650 mg PO Q6H PRN PRN Reason: Pain, Mild (Pain Scale 1-3) Aspirin (Aspirin Enteric Coated 81 Mg Tablet.) 81 mg PO DAILY [facility] Last Admin: 08/12/23 08:41 Dose: 81 mg Documented By: LEEANN Atorvastatin Calcium (Atorvastatin Calcium 20 Mg Tablet) 20 mg PO BEDTIME [facility] Last Admin: 08/11/23 22:04 Dose: 20 mg Documented By: ELMA Bisacodyl (Bisacodyl 10 Mg Supp.Rect) 10 mg MD MoWeFr@0900 [facility] Last Admin: 08/12/23 08:42 Dose: Not Given Documented By: LEEANN Non-Admin Reason: given last night Bisacodyl (Bisacodyl 10 Mg Supp.Rect) 10 mg MD DAILY PRN PRN Reason: Constipation Bisacodyl (Bisacodyl 5 Mg Tablet.) 5 mg PO BEDTIME [facility] Last Admin: 08/11/23 22:06 Dose: 5 mg Documented By: ELMA Enoxaparin Sodium (Enoxaparin Sodium 30 Mg/0.3 Ml Syringe) 30 mg SUBCUT Q24H [facility] Last Admin: 08/11/23 18:04 Dose: 30 mg Documented By: DELMAR Finasteride (Finasteride 5 Mg Tablet) 5 mg PO DAILY [facility] Last Admin: 08/12/23 08:42 Dose: 5 mg Documented By: LEEANN Gabapentin (Gabapentin 100 Mg Capsule) 100 mg PO BID [facility] Last Admin: 08/12/23 08:41 Dose: 100 mg Documented By: LEEANN Dextrose/Sodium Chloride (D51/2ns) 1,000 mls @ 125 mls/hr IVCONT .Q8H [facility] Last Admin: 08/12/23 04:11 Dose: 100 mls/hr Documented By: ELMA Lactulose (Lactulose 20 Gm/30 Ml Solution) 20 gm PO BID [facility] Last Admin: 08/12/23 08:41 Dose: 20 gm Documented By: LEEANN Levetiracetam (Levetiracetam 500 Mg Tablet) 500 mg PO BID [facility] Last Admin: 08/12/23 08:42 Dose: 500 mg Documented By: LEEANN Levothyroxine Sodium (Levothyroxine Sodium 112 Mcg Tablet) 112 mcg PO DAILY@0600 [facility] Last Admin: 08/12/23 06:03 Dose: Not Given Documented By: ELMA Non-Admin Reason: Patient Refused Metoclopramide HCl (Metoclopramide Hcl 10 Mg Tablet) 10 mg PO BIDAC [facility] Last Admin: 08/12/23 08:41 Dose: 10 mg Documented By: LEEANN Multivitamins/Vitamin C (Multivitamin Tablet) 1 tab PO DAILY [facility] Last Admin: 08/12/23 08:42 Dose: 1 tab Documented By: LEEANN Ondansetron HCl (Ondansetron Hcl 4 Mg/2 Ml Vial) 4 mg IVPUSH Q8H PRN PRN Reason: Nausea and Vomiting Polyethylene Glycol (Polyethylene Glycol 3350 17 Gm Powd.Pack) 17 gm PO DAILY [facility] Last Admin: 08/12/23 08:41 Dose: 17 gm Documented By: LEEANN Propranolol HCl (Propranolol Hcl 10 Mg Tablet) 10 mg PO TID [facility]; Protocol Last Admin: 08/12/23 08:41 Dose: 10 mg Documented By: LEEANN Senna (Sennosides 8.6 Mg Tablet) 8.6 mg PO DAILY PRN PRN Reason: Constipation Senna/Docusate Sodium (Sennosides/Docusate Sodium Tablet) 2 tab PO BID [facility] Last Admin: 08/12/23 08:42 Dose: 2 tab Documented By: LEEANN Sodium Biphosphate/Sodium Phosphate (Sodium Phosphate,[place]-Dibasic 133 Ml Enema) 118 ml MD DAILY PRN PRN Reason: Constipation Sodium Chloride (0.9 % Sodium Chloride Flush 3 Ml Syringe) 3 ml IVFLUSH QSHIFT [facility] Last Admin: 08/12/23 08:42 Dose: Not Given Documented By: LEEANN Non-Admin Reason: IV Running Tamsulosin HCl (Tamsulosin Hcl 0.4 Mg Capsule) 0.4 mg PO DAILY@2100 [facility] Last Admin: 08/11/23 22:04 Dose: 0.4 mg Documented By: ELMA Tramadol HCl (Tramadol Hcl 50 Mg Tablet) 25 mg PO Q6H PRN PRN Reason: Pain, Severe (Pain Scale 7-10) Labs 08/11/23 14:39 08/12/23 06:06 Labs: Laboratory Results - last 24 hr 08/11/23 08/11/23 08/11/23 14:39 17:25 20:20 MCV 77.3 L MCH 22.7 L MCHC 29.3 L RDW 20.0 H Plt Count 426 H D MPV 9.5 Immature Gran % (Auto) 1.1 H Neut % (Auto) 64.2 Lymph % (Auto) 23.2 [place] % (Auto) 10.5 Eos % (Auto) 0.5 Baso % (Auto) 0.5 Lymph # (Auto) 1.7 [place] # (Auto) 0.8 Eos # (Auto) 0.0 Baso # (Auto) 0.0 Abs Immat Gran (auto) 0.08 H Absolute Neuts (auto) 4.8 Absolute Nucleated RBC 0.000 Nucleated RBC % (auto) 0.0 Hold Purple Top PT 13.2 INR 1.1 Anion Gap 16 Estim Creat Clear Calc 27.0 Estimated GFR 48 Random Glucose 221 H Lactic Acid 4.4 H* Lactic Acid F/U @ 2Hr 2.7 H* Lactic Acid F/U @ 4Hr 1.8 Calcium 8.8 D Magnesium 2.5 Total Bilirubin 0.2 Direct Bilirubin < 0.2 AST 34 ALT 23 Alkaline Phosphatase 101 Total Protein 7.9 Albumin 3.0 L COVID-19 ([facility]) Negative COVID-19 Clin Com See Note 08/12/23 08/12/23 06:06 06:39 MCV MCH MCHC RDW Plt Count MPV Immature Gran % (Auto) Neut % (Auto) Lymph % (Auto) [place] % (Auto) Eos % (Auto) Baso % (Auto) Lymph # (Auto) [place] # (Auto) Eos # (Auto) Baso # (Auto) Abs Immat Gran (auto) Absolute Neuts (auto) Absolute Nucleated RBC Nucleated RBC % (auto) Hold Purple Top SEE NOTE PT INR Anion Gap 9 L Estim Creat Clear Calc 43.4 Estimated GFR > 60 Random Glucose 93 Lactic Acid Lactic Acid F/U @ 2Hr Lactic Acid F/U @ 4Hr Calcium 8.4 Magnesium Total Bilirubin Direct Bilirubin AST ALT Alkaline Phosphatase Total Protein Albumin COVID-19 ([facility]) COVID-19 Clin Com Assessment and Plan (1) Acute hypernatremia: Status: Acute (2) Dehydration: Status: Acute (3) Atrial fibrillation: Status: Acute Plan 79-year-old gentleman resident of [facility] transferred to [facility] due to hypernatremia patient with underlying history of schizophrenia, advanced dementia. Acute Hypernatremia due to dehydration Sodium remains elevated, cont D5 half-normal saline 125ml/h follow BMP closely Acute kidney injury likely due to poor by mouth intake , resolved with IV fluids treat with IV fluids, avoid nephrotoxin History of seizure disorder not otherwise specified continue levetiracetam History of hypothyroidism continue Synthroid History of schizophrenia continue home medication BPH continue Flomax History of AFib not on anticoagulation due to risk of bleeding, on propranolol 20 mg t.i.d. for rate control Moderate malnutrition seen by teachers assistant , supplements added Bilateral hip wounds / left buttock wound present on admission unstageable, continue foam dressing, wound care nurse consult pending DVT prophylaxis subQ Lovenox In my clinical judgment patient requires continued inpatient hospitalization for treatment of hypernatremia requiring IV fluid and close electrolyte monitoring. Quality Stroke Does the patient have a stroke diagnosis?: No VTE Prior VTE?: No VTE Risk Level:: Medical - moderate - high VTE Device Contraindication: Treatment Not Indicated VTE Drug Contraindication: N/A - Med Ordered
--- NOTE | 2023-08-12 11:53 | MHC.CM.PN ---
Addendum entered by Breanna Sorensen 08/13/23 14:06: CM DID CONTACT PTS LEGAL [facility]IAN ON 08/12/23 AND PTS MEDICARE RIGHTS WERE DELIVERED Original Note: pt is [facility] where he will return when dcd
[2023-08-12] MEDS: Enoxaparin Sodium 30 MG/0.3 ML SYRINGE SUBCUT (18:16)
[2023-08-12] MEDS: bisacodyL 5 MG TABLET.DR PO (20:09)
[2023-08-12] MEDS: Tamsulosin HCL 0.4 MG CAPSULE PO (20:09)
[2023-08-12] MEDS: Propranolol HCL 20 MG TABLET PO (20:09)
[2023-08-12] MEDS: Atorvastatin Calcium 20 MG TABLET PO (20:09)
[2023-08-12 23:45] VITALS: BP 118/57; PULSE 88; RESP 17; TEMP 36.7; O2SAT 95
[2023-08-13] MEDS: Dextrose 5 % and 0.45 % NaCl 1,000 ML 100 ML IVCONT ×2 (05:20→12:59)
[2023-08-13 05:58] LABS: Hematocrit 29.4 % (42.0-52.0); Hemoglobin 8.8 g/dl (14.0-18.0); Mean Corpuscular HGB Conc 29.9 g/dl (31.0-36.0); Mean Corpuscular Hemoglobin 22.1 pg (27.0-33.0); Mean Corpuscular Volume 73.9 fL (80.0-98.0); Mean Platelet Volume 9.2 fL (9.4-12.4); Platelet Count 404 X10*3/uL (160-400); Red Blood Count 3.98 X10*6/uL (4.60-5.80); Red Cell Distribution Width 19.2 % (11.0-16.0); White Blood Count 7.4 X10*3/uL (4.8-10.8)
[2023-08-13] MEDS: Levothyroxine Sodium 112 MCG TABLET PO (05:58)
[2023-08-13 06:16] LABS: Anion Gap 12 (12-20); Blood Urea Nitrogen 26 mg/dL (9-16); Calcium 8.1 mg/dL (8.4-10.2); Carbon Dioxide 24 mmol/L (22-29); Chloride 111 mmol/L (96-108); Creatinine Clr Calc Pharmacy 54.5; Estimated Glomerular Filt Rate > 60; Glucose Random 96 mg/dL (60-115); Potassium 4.5 mmol/L (3.3-5.1); Sodium 142 mmol/L (135-145)
[2023-08-13 06:33] LABS: Thyroid Stimulating Hormone 1.42 uIU/mL (0.32-4.0)
[2023-08-13 07:28] VITALS: BP 123/61; PULSE 91; RESP 16; TEMP 36.1; O2SAT 94
[2023-08-13] MEDS: polyethylene glycoL 3350 17 GM POWD.PACK PO (08:59)
[2023-08-13] MEDS: Multivitamin TABLET 1 TAB PO (08:59)
[2023-08-13] MEDS: Sennosides/Docusate Sodium TABLET 2 TAB PO (08:59)
[2023-08-13] MEDS: Lactulose 20 GM/30 ML SOLUTION PO (08:59)
[2023-08-13] MEDS: Finasteride 5 MG TABLET PO (09:00)
[2023-08-13] MEDS: Propranolol HCL 20 MG TABLET PO ×2 (09:00→15:16)
[2023-08-13] MEDS: Metoclopramide HCl 10 MG TABLET PO (09:00)
[2023-08-13] MEDS: levETIRAcetam 500 MG TABLET PO (09:00)
[2023-08-13] MEDS: Aspirin Enteric Coated 81 MG TABLET.DR PO (09:00)
[2023-08-13] MEDS: Gabapentin 100 MG CAPSULE PO (09:00)
--- NOTE | 2023-08-13 10:56 | PM.DS ---
DS: Providers Provider Date of Service: 08/13/23 Date of admission: 08/11/23 16:35 Primary care physician: Norris Muñoz DO Consults: 08/11/23 21:08 Consult to Wound Care Routine Reason for consultation: pressure injury to both hips and left buttock DS: Diagnosis Discharge Diagnosis (1) Acute hypernatremia: Status: Acute (2) Dehydration: Status: Acute (3) Atrial fibrillation: Status: Acute DS: Summary Hospital Course Hospital Course: Date of Service: 08/11/23 Chief Complaint: hypernatremia 83-year-old gentleman resident of [facility] with past medical history of atrial fibrillation, COPD, advanced dementia, prostate cancer, schizophrenia was sent in to [facility] due to abnormal labs that showed an elevated sodium level, due to advanced dementia patient is unable to provide any meaningful history repeat labs in ED showed a sodium of 151 chloride of 117 elevated creatinine of 1.41 with a baseline creatinine of 0.74 patient Actiq acid is 4.4 with a random blood glucose of 221, albumin of 3, WBC 7.5 is stable hemoglobin hematocrit and platelet count of 426, urinalysis not obtained, patient placed on IV fluid and I is now being admitted to [facility] for further treatment and evaluation of acute kidney injury and hypernatremia likely due to decreased by mouth intake. Hospital course: 79-year-old gentleman resident of [facility] transferred to [facility] due to hypernatremia and [facility] due to poor by mouth intake/dehydration patient with underlying history of schizophrenia, advanced dementia, was not able to provide meaningful history patient was admitted to medical floor and was treated with IV D5 half-normal saline renal function and sodium normalized, patient was continued on all of his baseline home medications his vitals remain stable patient was noted to have moderate malnutrition therefore supplements were added and wound care was provided for his bilateral hip and left buttock wounds therefore present on admission recommend to continue on home medications and dressing changes as before push fluids as tolerated. No acute infection was noted with no fevers normal WBC, chest x-ray showed, no infiltrate, urine not collected since patient was incontinent. Acute Hypernatremia due to dehydration resolved with IV fluids Acute kidney injury likely due to poor by mouth intake , resolved with IV fluids. History of seizure disorder not otherwise specified continue levetiracetam History of hypothyroidism continue Synthroid History of schizophrenia continue home medication BPH continue Flomax History of AFib not on anticoagulation due to risk of bleeding, cont. propranolol 20 mg t.i.d. for rate control Moderate malnutrition continue supplements. Bilateral hip wounds / left buttock wound present on admission unstageable, continue foam dressing. Time Attestation Discharge coordination time: Greater than 30 minutes Quality: Safe Use of Opioids Does Pt have an Active Cancer Diagnosis on the Problem List?: No Quality: Stroke Does the patient have a stroke diagnosis?: No Physical Exam Vital Signs: Vital Signs: Last Vital Signs Temp 97.0 F 08/13/23 07:28 Pulse 91 08/13/23 07:28 Resp 16 08/13/23 07:28 BP 123/61 08/13/23 07:28 Pulse Ox 94 08/13/23 07:28 O2 Del Method Room Air 08/13/23 07:28 O2 Flow Rate 3 08/11/23 16:31 Oxygen Flow Rate 2 08/11/23 14:41 BMI result Body Mass Index 19.3 Const: Other: Gen: awake, speech incoherent, in no acute distress, Neck: supple Lungs: clear bilaterally Heart: regular, no murmurs Abd: soft, non-tender, non-distended Ext: no edema Skin: warm/well-perfused Bilateral hip wounds and left buttock wound unstageable, no foul odor, no drainage Musculoskeletal contraction deformity Neuro: Unable to assess orientation Psych: impaired insight DS: Data Data Completed and Pending Completed studies during hospitalization [Text1]: Procedures Introduction of Vasopressor into Peripheral Vein, Percutaneous Approach (05/15/22) Labs on day of discharge: Laboratory Results - last 24 hr 08/13/23 05:27 WBC 7.4 RBC 3.98 L Hgb 8.8 L Hct 29.4 L D MCV 73.9 L MCH 22.1 L MCHC 29.9 L RDW 19.2 H Plt Count 404 H MPV 9.2 L Absolute Nucleated RBC 0.000 Nucleated RBC % (auto) 0.0 Sodium 142 Potassium 4.5 Chloride 111 H Carbon Dioxide 24 Anion Gap 12 BUN 26 H Creatinine 0.76 Estim Creat Clear Calc 54.5 Estimated GFR > 60 Random Glucose 96 Calcium 8.1 L TSH 1.42 Preliminary micro results at discharge 08/11/23 14:51 Blood Culture - Preliminary Blood - Venous No growth after 24 hours. 08/11/23 14:39 Blood Culture - Preliminary Blood - Venous No growth after 24 hours. Discharge Plan Discharge Anticipated Discharge Date/Time: 08/13/23 11:06 Patient Disposition: Xfer SNF Discharge Diagnosis: Acute hypernatremia Acute kidney injury due to dehydration Referrals: [facility] [Outside] Norris Muñoz DO [Primary Care Provider] - 1 Week Discharge Medications: Continued acetaminophen 325 mg Tablet 650 mg PO Q4H PRN (Reason: PAIN/TEMP) atorvastatin 20 mg Tablet 20 mg PO BEDTIME bisacodyl 10 mg Suppository 10 mg MT MOWEFR Rx Instructions: mon,wed,fri gabapentin 100 mg Capsule 100 mg PO BID haloperidol decanoate [Haldol Decanoate] 50 mg/mL Solution 10 mg IM Q14D lactulose 10 gram/15 mL Solution 20 g PO BID esomeprazole magnesium [Nexium] 40 mg Capsule,Delayed Release(Dr/Ec) 40 mg PO BID@0630,1630 multivitamin Tablet 1 tab PO DAILY propranolol 20 mg Tablet 20 mg PO TID sennosides [senna] 8.6 mg Tablet 8.6 mg PO DAILY PRN (Reason: Constipation) sennosides-docusate sodium [Senna Plus] 8.6-50 mg Tablet 2 tab PO BID tamsulosin 0.4 mg Capsule 0.4 mg PO DAILY@2100 tramadol 50 mg Tablet 50 mg PO TID Rx Instructions: GIVE 8 HOURS APART FROM SCHEDULED DOSE metoclopramide HCl 10 mg Tablet 10 mg PO BIDAC acidophilus-pectin, citrus 100 million cell-10 mg Capsule 1 cap PO DAILY Rx Instructions: take with a meal polyethylene glycol 3350 17 gram Powder In Packet 17 g PO DAILY Qty: 30 0RF aspirin 81 mg Capsule 81 mg PO DAILY Hold Instructions: at Venkatesh to decide when to restart if needed bisacodyl 10 mg Suppository 10 mg MT DAILY PRN (Reason: Constipation) Rx Instructions: if senna is ineffetive bisacodyl 5 mg Tablet 5 mg PO BEDTIME Fleet Enema 19-7 gram/118 mL Enema 118 ml MT DAILY PRN (Reason: Constipation) Rx Instructions: if bisacodyl suppository is ineffective levetiracetam 500 mg Tablet 500 mg PO BID levothyroxine 112 mcg tablet 112 mcg PO DAILY finasteride 5 mg tablet 5 mg PO DAILY 90 Days Qty: 90 3RF Discharge Orders: Discharge Order (Routine); Ordered 08/13/23 Ordered By: Portia Valdez Diet: Advance to usual diet Activity on Discharge: As tolerated Stand Alone Forms: Patient Portal Discharge page Care Plan Goals: Hypernatremia and acute kidney injury resolved push by mouth fluids Moderate malnutrition recommend Ensure maximum t.i.d. Health Concerns: Continue all home medications as before Plan of Treatment: Out patient follow-up with PCP Assessment: As above
--- NOTE | 2023-08-13 14:06 | MHC.CM.PN ---
PT READY TO DC BACK TO [facility] TODAY CM SENT SEVERAL MESSAGES [employer]IA [employer] HOWEVER DID NOT RECEIVE A RESPONSE CM CALLED [facility] AND FAXED CLINICALS TO [employer] PT WILL RETURN TO [facility] AT [address] CM CALLED [facility], SHANEKA MORE [phone] AND INFORMED HER OF PTS DC TIME SHE IS AGREEABLE
== END 2023-08-13 16:39 | disposition skilled nursing facility (03) | DRG 641 ==
LOC: HO.ED 15:57 → HO.EDOVER 16:42 → HO.S3 20:18
PROVIDERS: Admitting Provider Hospitalist; Emergency Provider Emergency Medicine; PCP Hospitalist; Visit Provider Hospitalist
DX: E87.0 Hyperosmolality and hypernatremia (principal); N17.9 Acute kidney failure, unspecified; I48.20 Chronic atrial fibrillation, unspecified; E44.0 Moderate protein-calorie malnutrition; Z68.1 Body mass index [BMI] 19.9 or less, adult; E86.0 Dehydration; Z89.212 Acquired absence of left upper limb below elbow; L89.222 Pressure ulcer of left hip, stage 2; L89.320 Pressure ulcer of left buttock, unstageable; E03.9 Hypothyroidism, unspecified; N40.0 Benign prostatic hyperplasia without lower urinary tract symptoms; C61 Malignant neoplasm of prostate; F03.90 Unspecified dementia, unspecified severity, without behavioral disturbance, psychotic disturbance, mood disturbance, and anxiety; F20.9 Schizophrenia, unspecified; Z20.822 Contact with and (suspected) exposure to COVID-19; Z79.82 Long term (current) use of aspirin; Z79.890 Hormone replacement therapy; Z79.899 Other long term (current) drug therapy
CPT/HCPCS: 36415; 71045; 80048; 80076; 83605; 83735; 84443; 84484; 85025; 85027; 85610; 87040; 87635; 93005; 99285; J1650

== ENCOUNTER → 2023-08-11 16:35 | Outpatient (BNV) | payer MEDICARE, MEDICAID, SELFPAY | PROVIDERS: Admitting Provider Hospitalist; Emergency Provider Emergency Medicine; Visit Provider Hospitalist | DX: E87.0 Hyperosmolality and hypernatremia (principal); E86.0 Dehydration; I48.91 Unspecified atrial fibrillation | CPT/HCPCS: 99223; 99233; 99239 ==

== ENCOUNTER 2023-11-01 14:08 | Inpatient (IN) | payer MEDICARE, MEDICAID, SELFPAY ==
--- NOTE | ~2023-11-01 | NM_ITS ---
EXAMINATION: THREE PHASE BONE SCAN CLINICAL INFORMATION: 83-year-old male suspected osteomyelitis of left hip.. COMPARISON: CT scan of the abdomen and pelvis done on 11/01/2023.. TECHNIQUE: Initial rapid sequence images were obtained over the left hip during the bolus injection of 22 mCi Tc-99m MDP. Static images of the pelvis including the left hip and the whole body were then obtained 2.75 hours post injection. FINDINGS: Evaluation is technically limited since the patient is extremely contracted especially his legs resulting in suboptimal positioning. The patient was also unable to cooperate at the time of the examination in spite of premedication. Subtle asymmetric increased flow and tracer avidity is noted in the region of the left hip/greater trochanter on the initial flow phase sequence as well as on subsequent blood pool images. On subsequent delayed static images, there is asymmetric increased tracer avidity identified in the region of the left hip, specifically left greater trochanter. The findings are suspicious for evolving osteomyelitis of the left greater trochanter. When correlating with the prior available CT study, there is a focal skin of gas/air identified overlying the greater trochanter associated with soft tissue thickening, most consistent with skin ulceration. In addition, there is cortical destruction and periosteal reaction noted at anteroinferior iliac spine associated with new bone formation and hypodense fluid collection around the anteroinferior iliac spine extending into the left iliac fossa, highly suspicious for evolving osteomyelitis and possible evolving abscess formation. The fluid collection would be amenable for image guided aspiration provided the patient can be placed optimally within the CT scanner. The remainder of the visualized body with extreme contractured of both lower extremities shows increased periarticular radiotracer distribution, most consistent with arthritic changes. NM/NM bone 3 phase IMPRESSION: 1. Abnormal 3 phase bone scan centering over the left hip/greater trochanter of the left femur. When correlating with the prior CT scan done on 11/01/2023, the findings are suspicious for osteomyelitis given the presence of soft tissue ulceration and air pocket on prior CT study done on 11/01/2023. 2. There is suggestion of destruction and new bone formation involving the left anteroinferior iliac spine surrounded by apparent fluid collection, suspicious for osteomyelitis with possible evolving abscess. The fluid collection would be amenable for image guided aspiration (517:13) provided the patient can be placed optimally within the CT scanner. This critical result was discussed with Anthony Uribe MD at 4:51 PM on 11/03/2023 and it was ascertained that the content and urgency of the report was understood at the time of direct communication.
--- NOTE | ~2023-11-01 | XR_ITS ---
EXAMINATION: XR CHEST CLINICAL INFORMATION: Reason for Exam aspiration COMPARISON: Chest radiograph 08/11/2023 TECHNIQUE: One view of the chest FINDINGS: Lines and tubes: EKG leads overlie the patient. Low lung volumes. Bronchial wall thickening can be seen with a small airways process such as asthma or atypical/viral infection. No pleural effusion. No pneumothorax. Unchanged cardiomediastinal silhouette. XR/XR chest 1V IMPRESSION: 1. Bronchial wall thickening can be seen with a small airways process such as asthma or atypical/viral infection. 2. Low lung volumes.
--- NOTE | ~2023-11-01 | US_ITS ---
LIMITED ULTRASOUND OF LEFT HIP HISTORY: Left ischial/hip decubitus ulcer. Concern for fluid collection on CT scan. FINDINGS: Limited ultrasound the hip/left ischial region demonstrates no drainable fluid collection. No aspiration was performed. The apparent fluid collection on CT scan represents beam hardening artifact from adjacent left hip hardware and adjacent bone. No true fluid collection is present. This exam was performed by Heriberto Mckenzie PA-C, and directly supervised by Dr. Mosher. US/US extremity nonvascu pre post IMPRESSION: No drainable fluid collection present. No procedures was performed.
--- NOTE | ~2023-11-01 | CT_ITS ---
EXAMINATION: CT OF THE THORAX, ABDOMEN AND PELVIS WITHOUT CONTRAST CLINICAL INFORMATION: Rule out pneumonia COMPARISON: CT abdomen/pelvis 05/14/2020 TECHNIQUE: Multiple axial images were obtained through the chest, abdomen, and pelvis without intravenous contrast. Sagittal and coronal reformatted images were obtained on the technologist's workstation. This CT examination was performed using dose optimization techniques as appropriate, variously including the following: *Automated exposure control *Adjustment of mA and/or kV according to patient size (this includes techniques or standardized protocols for targeted exams where dose is matched to indication/reason for exam; i.e. extremities or head) *Use of iterative reconstruction technique Study limited in evaluation due to nontraditional patient positioning. DLP: 264 mGy-cm Disclaimer: Optimal assessment of the viscera is limited without the use of contrast. FINDINGS: THORAX: Thyroid Gland: The visualized thyroid gland is normal. Lymph Nodes: No supraclavicular, axillary, mediastinal or hilar lymphadenopathy is identified. Cardiovascular And Mediastinum: Heart normal in size without pericardial effusion. Left coronary stent. Aortic and mitral annular calcifications. Airways: The trachea and central bronchi are normal. Lungs: Left lower lobe consolidation. Right lower lobe and lingular tree-in-bud opacities. No pneumothorax right apical paraseptal emphysema. Pleura: No pleural effusion. No pneumothorax. ABDOMEN/PELVIS: Liver: Homogeneous in attenuation. Normal in size. Gallbladder: Noninflamed. Biliary System: No intrahepatic or extrahepatic biliary dilation. Pancreas: Homogeneous in attenuation. Spleen: Normal in size. Genitourinary: No contour deforming masses. No perinephric fluid collection. No renal calculi. No hydroureteronephrosis. Adrenal Glands: Unremarkable. Reproductive: Prostate present. Gastrointestinal: The visualized alimentary tract is normal in course. No evidence of obstruction. Stercoral colitis. Peritoneum: No pneumoperitoneum. No intra-abdominal fluid collection. Vasculature: Moderate to severe aortic atherosclerotic calcifications. Lymph Nodes: No pathologically enlarged abdominal or pelvic lymph nodes. SOFT TISSUES/MUSCULOSKELETAL: Significant body contractures. Multilevel degenerative changes throughout the cervical spine. No acute fractures. End plate erosive changes at L4-L5. Bony remodeling and hypertrophic bone along the left ilium. Left femoral delaney and screw. Subcutaneous gas and skin thickening over the left greater trochanter. CT/CT abdomen pelvis wo IV con IMPRESSION: Chest: Left lower lobe pneumonia. Abdomen/pelvis: 1. No acute abdominopelvic pathology. 2. Stercoral colitis. 3. Subcutaneous gas and skin thickening over the left posterior greater trochanter consistent with a decubitus ulcer. Associated osteomyelitis cannot be excluded. Fleischner guidelines were followed.
--- NOTE | 2023-11-01 14:20 | ECG_ITS ---
Test Reason : SOB Blood Pressure : / mmHG Vent. Rate : 129 BPM Atrial Rate : 129 BPM P-R Int : 152 ms QRS Dur : 072 ms QT Int : 302 ms P-R-T Axes : 056 -46 007 degrees QTc Int : 442 ms Poor data quality Sinus tachycardia Right atrial enlargement Left axis deviation Abnormal ECG When compared with ECG of 11-AUG-2023 15:38, Poor data quality in current ECG precludes serial comparison Referred By: Latonya Pressley Electronically Signed By:BABS THOMAS MD
[2023-11-01 14:48] VITALS: BMI 23.3
--- NOTE | 2023-11-01 14:48 | ED.GENADULT ---
HPI - General Adult General Chief complaint: Fever Stated complaint: ASP ON VOMIT FROM SNF PER EMS Time Seen by Provider: 11/01/23 14:08 Source: EMS Mode of arrival: EMS Limitations: other (Dementia, schizophrenia) History of Present Illness HPI narrative: Patient [facility] According to his caretakers, patient vomited and aspirated today. Patient unable to give any history, patient minimally verbal and not making sense at baseline Related Data Home Medications Medication Instructions Recorded Confirmed acetaminophen 325 mg tablet 650 mg PO Q4H PRN PAIN/TEMP 12/30/21 11/01/23 atorvastatin 20 mg tablet 20 mg PO BEDTIME 12/30/21 11/01/23 bisacodyl 10 mg rectal suppository 10 mg OK MOWEFR 12/30/21 11/01/23 esomeprazole magnesium 40 mg 40 mg PO BID@0630,1630 12/30/21 11/01/23 capsule,delayed release (Nexium) gabapentin 100 mg capsule 100 mg PO BID 12/30/21 11/01/23 haloperidol decanoate 50 mg/mL 10 mg IM Q21D 12/30/21 11/01/23 intramuscular solution (Haldol Decanoate) lactulose 10 gram/15 mL oral 20 g PO BID 12/30/21 11/01/23 solution multivitamin 1 tab PO DAILY 12/30/21 11/01/23 propranolol 20 mg tablet 20 mg PO TID 12/30/21 11/01/23 sennosides 8.6 mg tablet (senna) 8.6 mg PO DAILY PRN Constipation 12/30/21 11/01/23 sennosides 8.6 mg-docusate sodium 2 tab PO BID 12/30/21 11/01/23 50 mg tablet (Senna Plus) tamsulosin 0.4 mg capsule 0.4 mg PO DAILY@2100 12/30/21 11/01/23 tramadol 50 mg tablet 50 mg PO TID 12/30/21 11/01/23 metoclopramide HCl 10 mg tablet 10 mg PO BIDAC 02/06/22 11/01/23 acidophilus 100 million 1 cap PO DAILY 11/15/22 11/01/23 cell-pectin, citrus 10 mg capsule aspirin 81 mg capsule 81 mg PO DAILY 12/21/22 11/01/23 bisacodyl 10 mg rectal suppository 10 mg OK DAILY PRN Constipation 12/21/22 11/01/23 bisacodyl 5 mg tablet 5 mg PO BEDTIME 12/21/22 11/01/23 sodium phosphates 19 gram-7 118 ml OK DAILY PRN Constipation 12/21/22 11/01/23 gram/118 mL enema (Fleet Enema) levothyroxine 112 mcg tablet 112 mcg PO DAILY 05/30/23 11/01/23 levetiracetam 500 mg tablet 500 mg PO BID 08/11/23 11/01/23 baclofen 10 mg tablet 10 mg PO TID 11/01/23 11/01/23 Previous Rx's Medication Instructions Recorded finasteride 5 mg tablet 5 mg PO DAILY 90 days #90 tabs 07/30/22 polyethylene glycol 3350 17 gram 17 g PO DAILY #30 ea 11/18/22 oral powder packet Allergies Allergy/AdvReac Type Severity Reaction Status Date / Time No Known Allergies Allergy Verified 05/29/23 19:18 [No Known Allergies*] [facility] [place] Past Medical History Medical History Pressure injury of hip, stage 2 Atrial fibrillation Urinary retention Dementia Urinary tract infection Moderate protein-calorie malnutrition Occipital infarction Atrial fibrillation BPH loc w urin obs/LUTS Dementia Schizophrenia COPD (chronic obstructive pulmonary disease) Prostate cancer Malignant neoplasm of prostate Family History Family History Other Family history unknown Social History Social History Household Members: Unknown / Unable to assess Household Members Other:: SNF Housing: [facility] Other:: Per notes: [facility] Do you presently have visiting nurse or other home services: No Unable to assess alcohol history related to: Unknown Alcohol intake: unknown Patient Tobacco Use Status: Tobacco use Unknown Second Hand Smoke Exposure: No Advance Directives: Yes Advance Directives on File: Yes Advance Directives Date on File: 05/18/22 service: No Current occupational status: disabled Physical Exam ED Vital Signs: Vital Signs - 24 hr 11/01/23 14:59 11/01/23 17:12 11/01/23 17:59 Temperature 102.8 F H 101.6 F H Pulse Rate 125 H 99 96 Respiratory Rate 34 H 32 H 30 H Blood Pressure 129/76 136/75 124/58 L Pulse Oximetry 100 100 96 Oxygen Delivery Method Nasal Cannula Room Air Nasal Cannula Oxygen Flow Rate 3 11/01/23 19:37 Temperature Pulse Rate 91 Respiratory Rate 26 H Blood Pressure 110/60 Pulse Oximetry 93 Oxygen Delivery Method Room Air Oxygen Flow Rate BMI result Body Mass Index 23.3 Const Other: Appearance: Alert. Eyes: Pupils equal, round and reactive to light. ENT: Pharynx normal. Neck: Normal inspection. Neck supple. No lymph nodes noted. No crepitus CVS: Normal heart rate and rhythm. Pulses normal. Normal S1 and S2 Respiratory: No respiratory distress. Breath sounds normal. No Wheezing. No rales Abdomen: Soft and nontender. No rigidity. No distention. Skin: Skin warm and dry. Normal skin color. Normal skin turgor. Chronic wounds in the hip Extremities: No lower extremity edema. Chronic contractures, sitting in a position Neuro: Oriented X 3. No motor deficit. No sensory deficit. Moving all extremities. No slurred speech. CN 2 through 12 grossly intact Psych: calm Course Course Course Narrative: -all of patient's labs and imaging pending Medications Administered Discontinued Medications Generic Name Dose Route Start Last Admin Trade Name Freq PRN Reason Stop Dose Admin Acetaminophen 650 mg 11/01/23 15:19 11/01/23 15:34 Acetaminophen Supp 650 Mg Supp.Rect OK 11/01/23 15:20 650 mg ONCE ONE Administration Sodium Chloride 2,000 mls @ 999 mls/hr 11/01/23 14:44 11/01/23 17:17 Ns IVCONT 11/01/23 16:44 Infused .Q2H1M ONE Infusion Piperacillin Sod/Tazobactam 50 mls @ 100 mls/hr 11/01/23 15:19 11/01/23 16:05 Sod 3.375 gm/ Sodium Chloride IV 11/01/23 15:48 Infused ONCE ONE Infusion Ondansetron HCl 4 mg 11/01/23 14:56 11/01/23 15:34 Ondansetron Hcl 4 Mg/2 Ml Vial IVPUSH 11/01/23 14:57 4 mg ONCE ONE Administration Medical Decision Making Medical Decision Making MDM Narrative: -I was informed by the patient's nurse at this time, [id number] that the patient has a fever of 102.8. Tachycardic of 125. Patient empirically being treated with IV fluids and Zosyn. From EMS report, patient likely aspirated. -all of patient's labs and imaging are pending. Blood pressure stable, 129/76 -CT scan images became available at 22:03: my interpretation of CT scan of the chest, seems that patient did aspirated and has pneumonia. Patient has already been covered with 2 L of IV fluids and Zosyn. Radiology report not available yet. -I discussed the patient with Dr. Guerrier, radiology report for the chest abdomen pelvis pending. -patient being admitted Differential Diagnosis Differential Diagnoses: The differential diagnosis associated with the presentation includes (Pneumonia, UTI, COVID, influenza) Admission/Observation Consideration of admission/observation: Escalation of care including admission/observation considered Consult Healthcare Provider Management of the patient was discussed with: Hospitalist Lab Data MDM Lab Attestation statement: I reviewed the patient's lab results. 11/01/23 15:11 11/01/23 15:11 Labs: Lab Results 11/01/23 11/01/23 11/01/23 Range/Units 15:11 15:12 15:21 WBC 9.0 (4.8-10.8) X10*3/uL RBC 4.86 D (4.60-5.80) X10*6/uL Hgb 11.7 L D (14.0-18.0) g/dl Hct 40.6 L D (42.0-52.0) % MCV 83.5 (80.0-98.0) fL MCH 24.1 L (27.0-33.0) pg MCHC 28.8 L (31.0-36.0) g/dl RDW 22.6 H (11.0-16.0) % Plt Count 525 H D (160-400) X10*3/uL MPV 9.5 (9.4-12.4) fL Immature Gran % (Auto) 0.2 (0.0-0.4) % Neut % (Auto) 75.4 H (45-73) % Lymph % (Auto) 18.6 L (20-40) % Gregg % (Auto) 3.9 (2-11) % Eos % (Auto) 1.6 (0-4) % Baso % (Auto) 0.3 (0-2) % Lymph # (Auto) 1.7 (1.2-4.9) X10*3/uL Gregg # (Auto) 0.4 (0.1-1.2) X10*3/uL Eos # (Auto) 0.1 (0.0-0.4) X10*3/uL Baso # (Auto) 0.0 (0.0-0.2) X10*3/uL Abs Immat Gran (auto) 0.02 (0.00-0.03) X10*3/uL Absolute Neuts (auto) 6.8 (2.0-8.3) x10*3/uL Absolute Nucleated RBC 0.000 (0.0-0.012) X10*3/uL Nucleated RBC % (auto) 0.0 (0.0-0.2) /100WBC PT 13.7 H (11.1-13.3) SEC INR 1.1 (0.9-1.1) VBG pH 7.40 (7.32-7.43) VBG pCO2 51 mmHg VBG pO2 29 mmHg VBG HCO3 32 H (22-26) mmol/L VBG O2 Saturation 32.0 % VBG Base Excess 6.0 mmol/L Sodium 147 H (135-145) mmol/L Potassium 5.1 (3.3-5.1) mmol/L Chloride 108 (96-108) mmol/L Carbon Dioxide 28 (22-29) mmol/L Anion Gap 16 (12-20) BUN 27 H (9-16) mg/dL Creatinine 1.01 (0.5-1.4) mg/dL Estim Creat Clear Calc 44.7 Estimated GFR > 60 Random Glucose 125 H (60-115) mg/dL Lactic Acid 3.1 H* (0.5-2.0) mmol/L Lactic Acid F/U @ 2Hr (0.5-2.0) mmol/L Calcium 9.5 D (8.4-10.2) mg/dL Total Bilirubin 0.2 (0.0-1.0) mg/dL Direct Bilirubin < 0.2 (0.0-0.5) mg/dL AST 32 (5-37) U/L ALT 27 (0-40) U/L Alkaline Phosphatase 130 H (39-117) U/L Troponin I High Sens 3.9 D (<3.5-35.0) ng/L Total Protein 8.4 H (6.5-8.0) g/dL Albumin 3.5 (3.5-5.0) g/dL Urine Color Urine Appearance Urine pH (5.0-9.0) Ur Specific Vernon (1.005-1.025) Urine Protein (Neg-Trace) mg/dL Urine Glucose (UA) (Negative) mg/dL Urine Ketones (Negative) mg/dL Urine Blood (Negative) Urine Nitrite (Negative) Ur Leukocyte Esterase (Negative) COVID-19 ([facility]) Negative (Negative) COVID-19 Clin Com See Note Influenza Type A ([facility]) (Negative) Influenza Type B ([facility]) (Negative) Influenza A & B Note 11/01/23 11/01/23 11/01/23 Range/Units 16:51 17:58 18:00 WBC (4.8-10.8) X10*3/uL RBC (4.60-5.80) X10*6/uL Hgb (14.0-18.0) g/dl Hct (42.0-52.0) % MCV (80.0-98.0) fL MCH (27.0-33.0) pg MCHC (31.0-36.0) g/dl RDW (11.0-16.0) % Plt Count (160-400) X10*3/uL MPV (9.4-12.4) fL Immature Gran % (Auto) (0.0-0.4) % Neut % (Auto) (45-73) % Lymph % (Auto) (20-40) % Gregg % (Auto) (2-11) % Eos % (Auto) (0-4) % Baso % (Auto) (0-2) % Lymph # (Auto) (1.2-4.9) X10*3/uL Gregg # (Auto) (0.1-1.2) X10*3/uL Eos # (Auto) (0.0-0.4) X10*3/uL Baso # (Auto) (0.0-0.2) X10*3/uL Abs Immat Gran (auto) (0.00-0.03) X10*3/uL Absolute Neuts (auto) (2.0-8.3) x10*3/uL Absolute Nucleated RBC (0.0-0.012) X10*3/uL Nucleated RBC % (auto) (0.0-0.2) /100WBC PT (11.1-13.3) SEC INR (0.9-1.1) VBG pH (7.32-7.43) VBG pCO2 mmHg VBG pO2 mmHg VBG HCO3 (22-26) mmol/L VBG O2 Saturation % VBG Base Excess mmol/L Sodium (135-145) mmol/L Potassium (3.3-5.1) mmol/L Chloride (96-108) mmol/L Carbon Dioxide (22-29) mmol/L Anion Gap (12-20) BUN (9-16) mg/dL Creatinine (0.5-1.4) mg/dL Estim Creat Clear Calc Estimated GFR Random Glucose (60-115) mg/dL Lactic Acid (0.5-2.0) mmol/L Lactic Acid F/U @ 2Hr 1.0 (0.5-2.0) mmol/L Calcium (8.4-10.2) mg/dL Total Bilirubin (0.0-1.0) mg/dL Direct Bilirubin (0.0-0.5) mg/dL AST (5-37) U/L ALT (0-40) U/L Alkaline Phosphatase (39-117) U/L Troponin I High Sens (<3.5-35.0) ng/L Total Protein (6.5-8.0) g/dL Albumin (3.5-5.0) g/dL Urine Color Yellow Urine Appearance Clear Urine pH 6.0 (5.0-9.0) Ur Specific Vernon 1.020 (1.005-1.025) Urine Protein Negative (Neg-Trace) mg/dL Urine Glucose (UA) Negative (Negative) mg/dL Urine Ketones Negative (Negative) mg/dL Urine Blood Negative (Negative) Urine Nitrite Negative (Negative) Ur Leukocyte Esterase Negative (Negative) COVID-19 ([facility]) (Negative) COVID-19 Clin Com Influenza Type A ([facility]) Negative (Negative) Influenza Type B ([facility]) Negative (Negative) Influenza A & B Note See Note Independent Interpretation I performed an independent interpretation of an: CT Scan Critical Care Time Critical Care Time Critical Care Time: Yes Total Critical Care Time: 75 Attestation: I have personally provided critical care time. Time includes review of lab data, radiology results, discussion with consultants, and monitoring for potential decompensation. Intervention performed as documented. Discharge Plan Discharge Clinical Impression: Aspiration pneumonia Patient Disposition: Admitted As Inpatient Prescriptions: No Action acetaminophen 325 mg Tablet 650 mg PO Q4H PRN (Reason: PAIN/TEMP) atorvastatin 20 mg Tablet 20 mg PO BEDTIME bisacodyl 10 mg Suppository 10 mg OK MOWEFR Rx Instructions: mon,wed,fri gabapentin 100 mg Capsule 100 mg PO BID haloperidol decanoate [Haldol Decanoate] 50 mg/mL Solution 10 mg IM Q21D lactulose 10 gram/15 mL Solution 20 g PO BID esomeprazole magnesium [Nexium] 40 mg Capsule,Delayed Release(Dr/Ec) 40 mg PO BID@0630,1630 multivitamin Tablet 1 tab PO DAILY propranolol 20 mg Tablet 20 mg PO TID sennosides [senna] 8.6 mg Tablet 8.6 mg PO DAILY PRN (Reason: Constipation) sennosides-docusate sodium [Senna Plus] 8.6-50 mg Tablet 2 tab PO BID tamsulosin 0.4 mg Capsule 0.4 mg PO DAILY@2100 tramadol 50 mg Tablet 50 mg PO TID Rx Instructions: GIVE 8 HOURS APART FROM SCHEDULED DOSE metoclopramide HCl 10 mg Tablet 10 mg PO BIDAC acidophilus-pectin, citrus 100 million cell-10 mg Capsule 1 cap PO DAILY Rx Instructions: take with a meal polyethylene glycol 3350 17 gram Powder In Packet 17 g PO DAILY Qty: 30 0RF aspirin 81 mg Capsule 81 mg PO DAILY Hold Instructions: at [facility] to decide when to restart if needed bisacodyl 10 mg Suppository 10 mg OK DAILY PRN (Reason: Constipation) Rx Instructions: if senna is ineffetive bisacodyl 5 mg Tablet 5 mg PO BEDTIME Fleet Enema 19-7 gram/118 mL Enema 118 ml OK DAILY PRN (Reason: Constipation) Rx Instructions: if bisacodyl suppository is ineffective levetiracetam 500 mg Tablet 500 mg PO BID baclofen 10 mg Tablet 10 mg PO TID levothyroxine 112 mcg tablet 112 mcg PO DAILY finasteride 5 mg tablet 5 mg PO DAILY 90 Days Qty: 90 3RF
[2023-11-01 14:59] VITALS: BP 129/76; PULSE 125; RESP 34; TEMP 39.3; O2SAT 100; BMI 23.3
[2023-11-01] MEDS: 0.9 % Sodium Chloride 2,000 ML 999 ML IVCONT (15:16)
[2023-11-01 15:21] LABS: MANUAL DIFF FLAG NO
[2023-11-01 15:25] LABS: Basophils Percent Auto 0.3 % (0-2); Eosinophils Absolute Auto 0.1 X10*3/uL (0.0-0.4); Eosinophils Percent Auto 1.6 % (0-4); Hematocrit 40.6 % (42.0-52.0); Hemoglobin 11.7 g/dl (14.0-18.0); Imm Gran Abs Auto 0.02 X10*3/uL (0.00-0.03); Imm Gran Pct Auto 0.2 % (0.0-0.4); Lymphocytes Absolute Auto 1.7 X10*3/uL (1.2-4.9); Lymphocytes Percent Auto 18.6 % (20-40); Mean Corpuscular HGB Conc 28.8 g/dl (31.0-36.0); Mean Corpuscular Hemoglobin 24.1 pg (27.0-33.0); Mean Corpuscular Volume 83.5 fL (80.0-98.0); Mean Platelet Volume 9.5 fL (9.4-12.4); Monocytes Absolute Auto 0.4 X10*3/uL (0.1-1.2); Monocytes Percent Auto 3.9 % (2-11); Neutrophils Absolute Auto 6.8 x10*3/uL (2.0-8.3); Neutrophils Percent Auto 75.4 % (45-73); Platelet Count 525 X10*3/uL (160-400); Red Blood Count 4.86 X10*6/uL (4.60-5.80); Red Cell Distribution Width 22.6 % (11.0-16.0)
[2023-11-01 15:27] LABS: VBG HCO3 32 mmol/L (22-26); VBG pCO2 51 mmHg; VBG pO2 29 mmHg
[2023-11-01 15:28] LABS: Venous Blood Gas Refer to POC result
[2023-11-01 15:30] LABS: INTERNATIONAL NORM RATIO 1.1 (0.9-1.1); Prothrombin Time 13.7 SEC (11.1-13.3)
[2023-11-01] MEDS: Piperacillin Sodium/Tazobactam 3.375 GM in 0.9 % Sodium Chloride 50 ML IV (15:34)
[2023-11-01] MEDS: Acetaminophen Supp 650 MG SUPP.RECT PR (15:34)
[2023-11-01] MEDS: ondansetron HCL 4 MG/2 ML VIAL IVPUSH (15:34)
[2023-11-01 15:40] LABS: Alanine Aminotransferase 27 U/L (0-40); Albumin Level 3.5 g/dL (3.5-5.0); Alkaline Phosphatase 130 U/L (39-117); Anion Gap 16 (12-20); Aspartate Amino Transferase 32 U/L (5-37); Bilirubin Direct < 0.2 mg/dL (0.0-0.5); Bilirubin Total 0.2 mg/dL (0.0-1.0); Blood Urea Nitrogen 27 mg/dL (9-16); Calcium 9.5 mg/dL (8.4-10.2); Carbon Dioxide 28 mmol/L (22-29); Chloride 108 mmol/L (96-108); Creatinine Clr Calc Pharmacy 44.7; Estimated Glomerular Filt Rate > 60; Glucose Random 125 mg/dL (60-115); Potassium 5.1 mmol/L (3.3-5.1); Sodium 147 mmol/L (135-145); Total Protein 8.4 g/dL (6.5-8.0)
[2023-11-01 15:40] LABS: COVID-19 Test Negative (Negative); IDNOW Serial# 08D9AD1C
[2023-11-01 15:42] LABS: Lactic Acid 3.1 mmol/L (0.5-2.0)
[2023-11-01 15:47] LABS: Troponin-I High Sensitivity 3.9 ng/L (<3.5-35.0)
--- NOTE | 2023-11-01 15:58 | PC.NURSE ---
[facility], hx of same issue. found to be febrile 102.8 rectally. iv established, labs obtained and sent. patient contracted at baseline with multiple chronic wounds to bilateral hips and feet. incontinent of urine, full bed change obtained.
--- NOTE | 2023-11-01 17:08 | PHA.MEDREC ---
Pharmacy Consult ? Medication Reconciliation Pharmacy has completed the medication reconciliation. Patient from [facility] with med list. Marianela Mosqueda, RebekahD
[2023-11-01 17:12] VITALS: BP 136/75; PULSE 99; RESP 32; O2SAT 100
[2023-11-01 17:21] LABS: Reflex Lactate? Lactic Acid Added
[2023-11-01 17:28] LABS: IDNOW Serial# 16C4AD1C; Influenza A Negative (Negative); Influenza B2 Negative (Negative)
[2023-11-01 17:59] VITALS: BP 124/58; PULSE 96; RESP 30; TEMP 38.7; O2SAT 96
[2023-11-01 18:10] LABS: Appearance Urine Clear; Color Urine Yellow; Glucose Urine UA Negative (Negative); Leukocyte Esterase Urine Negative (Negative); Nitrite Urine Negative (Negative); Urine Blood Negative (Negative); Urine Ketones Negative (Negative); Urine Protein Negative (Neg-Trace)
--- NOTE | 2023-11-01 19:36 | PC.NURSE ---
This RN took over pt care @ 1900 Pt resting in bed. Plan of care ongoing.
[2023-11-01 19:37] VITALS: BP 110/60; PULSE 91; RESP 26; O2SAT 93
--- NOTE | 2023-11-01 19:53 | PC.NURSE ---
CT with pt.
[2023-11-01] MEDS: levETIRAcetam in NaCl (iso-os) 500 MG/100 ML PIGGYBACK 400 MG IV (22:08)
--- NOTE | 2023-11-01 22:10 | PM.IMHP ---
History of Present Illness Date of Service: 11/01/23 Attending physician on admission: Katelyn Guerrier Chief Complaint: hypoxia, cough 83-year-old gentleman resident of [facility] with past medical history of atrial fibrillation, COPD, advanced dementia, prostate cancer, schizophrenia, chronic dysphagia with h/o aspiration, epilepsy, moderate protein calorie malnutrition, and hypothyroidism presented to the ED via EMS from [facility] where is resides due to hypoxia, vomiting, and suspected aspiration. Pt had episode of nonbloody emesis earlier today and was found to be hypoxic to 88% on RA, places on 2L supplemental O2 and was tachycardic to 135, lwo grade fever 100 prior to arrival. Pt unable to provide history. On arrival, pt febrile to 102.8, tachycardic to 125, tachypneic to 34. Arrived to the ED on supplemental O2 but has been weaned to room air now maintaining oximetry 93%. There was no leukocytosis. Renal function baseline, electrolyte levels normal except for mild hyponatremia of 147. Initial lactic acid 3.1, improved to 1.0 following IV fluid administration. Hepatic function within normal limits. Troponin 3.9. Urinalysis unremarkable. Negative for COVID-19, influenza. CT chest shows left lower lobe pneumonia. CT abdomen pelvis negative for any acute intra abdominal abnormality but does show stercoral colitis as well as subcutaneous gas and skin thickening over the left posterior greater trochanter consistent with decubitus ulcer and associated osteomyelitis can not be excluded. In the ED, treated with IV zosyn, 2L IVF, zofran. Review of Systems Review of Systems: Yes Unobtainable due to mental status PMFSH Medical History Pressure injury of hip, stage 2 Atrial fibrillation Urinary retention Dementia Urinary tract infection Moderate protein-calorie malnutrition Occipital infarction Atrial fibrillation BPH loc w urin obs/LUTS Dementia Schizophrenia COPD (chronic obstructive pulmonary disease) Prostate cancer Malignant neoplasm of prostate Family History Other Family history unknown Social History Household Members: Unknown / Unable to assess Household Members Other:: SNF Housing: Custodial Housing Other:: Per notes: Care 1 Do you presently have visiting nurse or other home services: No Unable to assess alcohol history related to: Unknown Alcohol intake: unknown Patient Tobacco Use Status: Tobacco use Unknown Second Hand Smoke Exposure: No Advance Directives: Yes Advance Directives on File: Yes Advance Directives Date on File: 05/18/22 service: No Current occupational status: disabled Meds Allergies Allergy/AdvReac Type Severity Reaction Status Date / Time No Known Allergies Allergy Verified 05/29/23 19:18 [No Known Allergies*] Active Medications: Current Medications Acetaminophen (Acetaminophen 325 Mg Tablet) 650 mg PO Q6H PRN PRN Reason: Pain, Mild (Pain Scale 1-3) Aspirin (Aspirin Enteric Coated 81 Mg Tablet.) 81 mg PO DAILY [facility] Atorvastatin Calcium (Atorvastatin Calcium 20 Mg Tablet) 20 mg PO BEDTIME TERESE Baclofen (Baclofen 10 Mg Tablet) 10 mg PO TID TERESE Bisacodyl (Bisacodyl 5 Mg Tablet.) 5 mg PO BEDTIME TERESE Bisacodyl (Bisacodyl 10 Mg Supp.Rect) 10 mg TN DAILY PRN PRN Reason: Constipation Bisacodyl (Bisacodyl 10 Mg Supp.Rect) 10 mg TN MOWEFR [facility] Enoxaparin Sodium (Enoxaparin Sodium 40 Mg/0.4 Ml Syringe) 40 mg SUBCUT Q24H [facility] Finasteride (Finasteride 5 Mg Tablet) 5 mg PO DAILY [facility] Gabapentin (Gabapentin 100 Mg Capsule) 100 mg PO BID [facility] Levetiracetam (Keppra) 500 mg in 100 mls @ 400 mls/hr IV Q12H TERESE Ampicillin Sodium/Sulbactam (Sodium 3 gm/ Sodium Chloride) 100 mls @ 200 mls/hr IV Q6H TERESE Lactulose (Lactulose 20 Gm/30 Ml Solution) 20 gm PO BID TERESE Levothyroxine Sodium (Levothyroxine Sodium 112 Mcg Tablet) 112 mcg PO DAILY TERESE Metoclopramide HCl (Metoclopramide Hcl 10 Mg Tablet) 10 mg PO BIDAC [facility] Multivitamins/Vitamin C (Multivitamin Tablet) 1 tab PO DAILY [facility] Non-Formulary Medication (Esomeprazole Magnesium [Nexium]) 40 mg PO BID@0630,1630 TERESE Ondansetron HCl (Ondansetron Hcl 4 Mg/2 Ml Vial) 4 mg IVPUSH Q8H PRN PRN Reason: Nausea and Vomiting Polyethylene Glycol (Polyethylene Glycol 3350 17 Gm Powd.Pack) 17 gm PO DAILY [facility] Propranolol HCl (Propranolol Hcl 20 Mg Tablet) 20 mg PO TID [facility]; Protocol Senna (Sennosides 8.6 Mg Tablet) 8.6 mg PO DAILY PRN PRN Reason: Constipation Senna/Docusate Sodium (Sennosides/Docusate Sodium Tablet) 2 tab PO BID [facility] Home Medications Medication Instructions Recorded Confirmed Last Taken Type acetaminophen 325 mg tablet 650 mg PO Q4H PRN PAIN/TEMP 12/30/21 11/01/23 Unknown History atorvastatin 20 mg tablet 20 mg PO BEDTIME 12/30/21 11/01/23 02/05/22 History bisacodyl 10 mg rectal suppository 10 mg TN MOWEFR 12/30/21 11/01/23 12/20/22 History esomeprazole magnesium 40 mg 40 mg PO BID@0630,1630 12/30/21 11/01/23 02/06/22 History capsule,delayed release (Nexium) gabapentin 100 mg capsule 100 mg PO BID 12/30/21 11/01/23 02/06/22 History haloperidol decanoate 50 mg/mL 10 mg IM Q21D 12/30/21 11/01/23 12/09/22 History intramuscular solution (Haldol Decanoate) lactulose 10 gram/15 mL oral 20 g PO BID 12/30/21 11/01/23 02/06/22 History solution multivitamin 1 tab PO DAILY 12/30/21 11/01/23 02/06/22 History propranolol 20 mg tablet 20 mg PO TID 12/30/21 11/01/23 02/06/22 History sennosides 8.6 mg tablet (senna) 8.6 mg PO DAILY PRN Constipation 12/30/21 11/01/23 Unknown History sennosides 8.6 mg-docusate sodium 2 tab PO BID 12/30/21 11/01/23 02/06/22 History 50 mg tablet (Senna Plus) tamsulosin 0.4 mg capsule 0.4 mg PO DAILY@2100 12/30/21 11/01/23 02/05/22 History tramadol 50 mg tablet 50 mg PO TID 12/30/21 11/01/23 Unknown History metoclopramide HCl 10 mg tablet 10 mg PO BIDAC 0511/01/23 02/06/22 History acidophilus 100 million 1 cap PO DAILY 11/15/22 11/01/23 Unknown History cell-pectin, citrus 10 mg capsule aspirin 81 mg capsule 81 mg PO DAILY 12/21/22 11/01/23 Unknown History bisacodyl 10 mg rectal suppository 10 mg TN DAILY PRN Constipation 12/21/22 11/01/23 Unknown History bisacodyl 5 mg tablet 5 mg PO BEDTIME 12/21/22 11/01/23 Unknown History sodium phosphates 19 gram-7 118 ml TN DAILY PRN Constipation 12/21/22 11/01/23 Unknown History gram/118 mL enema (Fleet Enema) levothyroxine 112 mcg tablet 112 mcg PO DAILY 05/30/23 11/01/23 Unknown History levetiracetam 500 mg tablet 500 mg PO BID 08/11/23 11/01/23 Unknown History baclofen 10 mg tablet 10 mg PO TID 11/01/23 11/01/23 Unknown History Physical Exam Vital Signs and Narrative: Vital Signs: Last Vital Signs Temp 101.6 F H 11/01/23 17:59 Pulse 91 11/01/23 19:37 Resp 26 H 11/01/23 19:37 BP 110/60 11/01/23 19:37 Pulse Ox 93 11/01/23 19:37 O2 Del Method Room Air 11/01/23 19:37 O2 Flow Rate 3 11/01/23 17:59 Oxygen Flow Rate 3 11/01/23 14:59 BMI result Body Mass Index 23.3 Chronic wound noted left hip, covered in foam dressing. No evidence of respiratory distress, normal work of breathing. Pt laying in bed, contracted, cachectic appearing. Unable to examine patient due to patient aggression/aggitation Results Labs 11/01/23 15:11 11/01/23 15:11 Labs: Laboratory Results - last 24 hr 11/01/23 11/01/23 11/01/23 15:11 15:12 15:21 MCV 83.5 MCH 24.1 L MCHC 28.8 L RDW 22.6 H Plt Count 525 H D MPV 9.5 Immature Gran % (Auto) 0.2 Neut % (Auto) 75.4 H Lymph % (Auto) 18.6 L [place] % (Auto) 3.9 Eos % (Auto) 1.6 Baso % (Auto) 0.3 Lymph # (Auto) 1.7 [place] # (Auto) 0.4 Eos # (Auto) 0.1 Baso # (Auto) 0.0 Abs Immat Gran (auto) 0.02 Absolute Neuts (auto) 6.8 Absolute Nucleated RBC 0.000 Nucleated RBC % (auto) 0.0 PT 13.7 H INR 1.1 VBG pH 7.40 VBG pCO2 51 VBG pO2 29 VBG HCO3 32 H VBG O2 Saturation 32.0 VBG Base Excess 6.0 Anion Gap 16 Estim Creat Clear Calc 44.7 Estimated GFR > 60 Random Glucose 125 H Lactic Acid 3.1 H* Lactic Acid F/U @ 2Hr Calcium 9.5 D Total Bilirubin 0.2 Direct Bilirubin < 0.2 AST 32 ALT 27 Alkaline Phosphatase 130 H Total Protein 8.4 H Albumin 3.5 Urine Color Urine Appearance Urine pH Ur Specific [place] Urine Protein Urine Glucose (UA) Urine Ketones Urine Blood Urine Nitrite Ur Leukocyte Esterase COVID-19 ([facility]) Negative COVID-Cream.HR Com See Note Influenza Type A ([facility]) Influenza Type B ([facility]) Influenza A & B Note 11/01/23 11/01/23 11/01/23 16:51 17:58 18:00 MCV MCH MCHC RDW Plt Count MPV Immature Gran % (Auto) Neut % (Auto) Lymph % (Auto) [place] % (Auto) Eos % (Auto) Baso % (Auto) Lymph # (Auto) [place] # (Auto) Eos # (Auto) Baso # (Auto) Abs Immat Gran (auto) Absolute Neuts (auto) Absolute Nucleated RBC Nucleated RBC % (auto) PT INR VBG pH VBG pCO2 VBG pO2 VBG HCO3 VBG O2 Saturation VBG Base Excess Anion Gap Estim Creat Clear Calc Estimated GFR Random Glucose Lactic Acid Lactic Acid F/U @ 2Hr 1.0 Calcium Total Bilirubin Direct Bilirubin AST ALT Alkaline Phosphatase Total Protein Albumin Urine Color Yellow Urine Appearance Clear Urine pH 6.0 Ur Specific [place] 1.020 Urine Protein Negative Urine Glucose (UA) Negative Urine Ketones Negative Urine Blood Negative Urine Nitrite Negative Ur Leukocyte Esterase Negative COVID-19 ([facility]) COVID-19 Given.to Com Influenza Type A ([facility]) Negative Influenza Type B ([facility]) Negative Influenza A & B Note See Note Imaging Radiologist's Impressions: Impressions Chest X-Ray 11/01/23 15:35 IMPRESSION: 1. Bronchial wall thickening can be seen with a small airways process such as asthma or atypical/viral infection. 2. Low lung volumes. Abdomen/Pelvis CT 11/01/23 20:44 IMPRESSION: Chest: Left lower lobe pneumonia. Abdomen/pelvis: 1. No acute abdominopelvic pathology. 2. Stercoral colitis. 3. Subcutaneous gas and skin thickening over the left posterior greater trochanter consistent with a decubitus ulcer. Associated osteomyelitis cannot be excluded. Fleischner guidelines were followed. Chest CT 11/01/23 20:44 IMPRESSION: Chest: Left lower lobe pneumonia. Abdomen/pelvis: 1. No acute abdominopelvic pathology. 2. Stercoral colitis. 3. Subcutaneous gas and skin thickening over the left posterior greater trochanter consistent with a decubitus ulcer. Associated osteomyelitis cannot be excluded. Fleischner guidelines were followed. Assessment and Plan (1) Aspiration pneumonia: Status: Acute (2) Sepsis: Status: Acute (3) Decubitus ulcer: Status: Acute Plan 83-year-old gentleman resident of [facility] with past medical history of atrial fibrillation, COPD, advanced dementia, prostate cancer, schizophrenia, chronic dysphagia with h/o aspiration, epilepsy, moderate protein calorie malnutrition, and hypothyroidism admitted for further management of pneumonia with severe sepsis #Acute pneumonia with severe sepsis -presumed aspiration given clinical history -febrile, tachycardic, tachypneic. 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 #Epilepsy -Change to IV keppra, transition to PO as appropriate # paroxysmal atrial fibrillation-rate controlled -not on anticoagulation or rate control medication -continue ASA # hypothyroidism -continue levothyroxine # schizophrenia -continue home medications # chronic constipation -continue bowel regimen # moderate protein calorie nutrition -advance diet per LOC[facility]ENENS recommendations with nutrition supplements -nutrition to follow # COPD -no acute exacerbation DVT prophylaxis- lovenox Full code Guardian- Kamila Daley [phone] Pt requires inpt stay at least 2 midnights for management of acute aspiration pneumonia with severe sepsis requiring IV abx and close monitoring to prevent decompensation as well as further management of suspected OM left greater trochanter requriing IV abx, furhter imaging, negative blood cultures with probable prolonged abx therapy, and expert consulation. Quality Stroke Does the patient have a stroke diagnosis?: No VTE Prior VTE?: No VTE Risk Level:: Medical - moderate - high VTE Device Contraindication: Treatment Not Indicated VTE Drug Contraindication: N/A - Med Ordered
--- NOTE | 2023-11-01 22:15 | PC.NURSE ---
Pt medicated per dec. Plan of care ongoing.
[2023-11-01] MEDS: Piperacillin Sodium/Tazobactam 4.5 GM in 0.9 % Sodium Chloride 100 ML IV (22:43)
[2023-11-01] MEDS: Enoxaparin Sodium 40 MG/0.4 ML SYRINGE SUBCUT (22:44)
[2023-11-01 22:53] LABS: C Reactive Protein 7.48 mg/dL (< or = 0.50)
--- NOTE | 2023-11-01 22:59 | PC.NURSE ---
Pt reporting 10/10 abdm pain that radiates to his back and constipation x1 wk. Pts son at bedside. Pt reporting he feels like he has to use the bathroom. Pt used the bathroom on himself, pt cleaned and changed into hospital gown. Pt placed on bedpan. Rectal temp taken of 99.1 occult blood noticed when cleaned. All this info given to RN taking over assignment.
--- NOTE | 2023-11-01 23:07 | PC.NURSE ---
Per report patient is waiting for vanco trough to be drawn, patient getting zosyn at this time.
--- NOTE | 2023-11-01 23:07 | PC.NURSE ---
Patient getting Vanco trough prior to getting 2230 vanco dose.
[2023-11-02] VITALS (7 sets, daily range): BP systolic 122–140; BP diastolic 62–84; PULSE 82–102; RESP 16–20; TEMP 36.3–37.1; O2SAT 92–98; BMI 22.7; BMI 21.4
[2023-11-02] MEDS: vancomycin HCL 1,500 MG in 0.9 % Sodium Chloride 500 ML 333.33 MG IV (00:26)
[2023-11-02 02:08] LABS: Glucose, Whole Blood 80 mg/dL (60-115)
--- NOTE | 2023-11-02 02:35 | HO.WOUND ---
L butt/hip unstageable pic#1 L hip unstageable pic#2 R hip healed pic#3 R hip unstageable pic#4
[2023-11-02] MEDS: Piperacillin Sodium/Tazobactam 4.5 GM in 0.9 % Sodium Chloride 100 ML IV ×4 (04:39→22:24)
--- NOTE | 2023-11-02 05:30 | PC.NURSE ---
No documented output on patient. Hx of urinary retention. Pt was incontinent of large amount of urine at 0530. No need to bladder scan at this time.
[2023-11-02 05:41] LABS: Glucose, Whole Blood 77 mg/dL (60-115)
--- NOTE | 2023-11-02 08:52 | P.PNIM_ITS ---
Subjective Subjective Date of Service: 11/02/23 Review of Systems Review of Systems: Yes Unobtainable due to mental condition Physical Exam 2 Vital Signs: Vital Signs: Last Vital Signs Temp 97.3 F 11/02/23 07:24 Pulse 89 11/02/23 07:24 Resp 20 11/02/23 07:24 BP 140/62 H 11/02/23 07:24 Pulse Ox 92 11/02/23 07:24 O2 Del Method Nasal Cannula 11/02/23 07:24 O2 Flow Rate 3 11/02/23 07:24 Oxygen Flow Rate 3 11/01/23 14:59 BMI result Body Mass Index 22.7 contracted, obtunded, left hip ulcer Objective Data Active Medications Acetaminophen (Acetaminophen Supp 650 Mg Supp.Rect) 650 mg MN Q6H PRN PRN Reason: Fever Aspirin (Aspirin Enteric Coated 81 Mg Tablet.) 81 mg PO DAILY [facility] Last Admin: 11/02/23 08:20 Dose: Not Given Documented By: JENNIFER Non-Admin Reason: NPO Atorvastatin Calcium (Atorvastatin Calcium 20 Mg Tablet) 20 mg PO BEDTIME [facility] Baclofen (Baclofen 10 Mg Tablet) 10 mg PO TID [facility] Last Admin: 11/02/23 08:20 Dose: Not Given Documented By: JENNIFER Non-Admin Reason: NPO Bisacodyl (Bisacodyl 5 Mg Tablet.) 5 mg PO BEDTIME [facility] Bisacodyl (Bisacodyl 10 Mg Supp.Rect) 10 mg MN DAILY PRN PRN Reason: Constipation Bisacodyl (Bisacodyl 10 Mg Supp.Rect) 10 mg MN MoWeFr@0900 [facility] Last Admin: 11/02/23 08:20 Dose: Not Given Documented By: JENNIFER Non-Admin Reason: NPO Enoxaparin Sodium (Enoxaparin Sodium 40 Mg/0.4 Ml Syringe) 40 mg SUBCUT Q24H [facility] Last Admin: 11/01/23 22:44 Dose: 40 mg Documented By: RENATA Finasteride (Finasteride 5 Mg Tablet) 5 mg PO DAILY [facility] Last Admin: 11/02/23 08:20 Dose: Not Given Documented By: JENNIFER Non-Admin Reason: NPO Gabapentin (Gabapentin 100 Mg Capsule) 100 mg PO BID [facility] Last Admin: 11/02/23 08:20 Dose: Not Given Documented By: JENNIFER Non-Admin Reason: NPO Levetiracetam (Keppra) 500 mg in 100 mls @ 400 mls/hr IV Q12H [facility] Last Infusion: 11/01/23 23:14 Dose: Infused Documented By: RENATA Piperacillin Sod/Tazobactam (Sod 4.5 gm/ Sodium Chloride) 100 mls @ 200 mls/hr IV Q6H [facility] Last Infusion: 11/02/23 05:49 Dose: Infused Documented By: HAN Vancomycin HCl 1,250 mg/ (Sodium Chloride) 250 mls @ 166.667 mls/hr IV Q24H [facility] Lactulose (Lactulose 20 Gm/30 Ml Solution) 20 gm PO BID [facility] Last Admin: 11/02/23 08:20 Dose: Not Given Documented By: JENNIFER Non-Admin Reason: NPO Levothyroxine Sodium (Levothyroxine Sodium 112 Mcg Tablet) 112 mcg PO DAILY@0600 [facility] Last Admin: 11/02/23 04:42 Dose: Not Given Documented By: HAN Non-Admin Reason: NPO Metoclopramide HCl (Metoclopramide Hcl 10 Mg Tablet) 10 mg PO BIDAC [facility] Last Admin: 11/02/23 06:43 Dose: Not Given Documented By: HAN Non-Sunshine Reason: NPO Multivitamins/Vitamin C (Multivitamin Tablet) 1 tab PO DAILY [facility] Last Admin: 11/02/23 08:20 Dose: Not Given Documented By: JENNIFER Non-Admin Reason: NPO Omeprazole (Omeprazole 20 Mg Capsule.Dr) 20 mg PO BID@0630,1630 [facility] Last Admin: 11/02/23 04:42 Dose: Not Given Documented By: HAN Non-Admin Reason: NPO Ondansetron HCl (Ondansetron Hcl 4 Mg/2 Ml Vial) 4 mg IVPUSH Q8H PRN PRN Reason: Nausea and Vomiting Pharmacy Consult (Consult Rx Vancomycin Dosing) 1 each MISCELLANE DAILY PRN PRN Reason: Consult order Polyethylene Glycol (Polyethylene Glycol 3350 17 Gm Powd.Pack) 17 gm PO DAILY [facility] Last Admin: 11/02/23 08:20 Dose: Not Given Documented By: JENNIFER Non-Admin Reason: NPO Propranolol HCl (Propranolol Hcl 20 Mg Tablet) 20 mg PO TID [facility]; Protocol Last Admin: 11/02/23 08:20 Dose: Not Given Documented By: JENNIFER Non-Admin Reason: NPO Senna (Sennosides 8.6 Mg Tablet) 8.6 mg PO DAILY PRN PRN Reason: Constipation Senna/Docusate Sodium (Sennosides/Docusate Sodium Tablet) 2 tab PO BID [facility] Last Admin: 11/02/23 08:20 Dose: Not Given Documented By: JENNIFER Non-Admin Reason: NPO Sodium Biphosphate/Sodium Phosphate (Sodium Phosphate,[place]-Dibasic 133 Ml Enema) 118 ml MN DAILY PRN PRN Reason: Constipation Tamsulosin HCl (Tamsulosin Hcl 0.4 Mg Capsule) 0.4 mg PO DAILY@2100 [facility] Tramadol HCl (Tramadol Hcl 50 Mg Tablet) 50 mg PO TID [facility] Last Admin: 11/02/23 08:20 Dose: Not Given Documented By: JENNIFER Non-Admin Reason: NPO Labs 11/01/23 15:11 11/01/23 15:11 Labs: Laboratory Results - last 24 hr 11/01/23 11/01/23 11/01/23 15:11 15:12 15:21 MCV 83.5 MCH 24.1 L MCHC 28.8 L RDW 22.6 H Plt Count 525 H D MPV 9.5 Immature Gran % (Auto) 0.2 Neut % (Auto) 75.4 H Lymph % (Auto) 18.6 L [place] % (Auto) 3.9 Eos % (Auto) 1.6 Baso % (Auto) 0.3 Lymph # (Auto) 1.7 [place] # (Auto) 0.4 Eos # (Auto) 0.1 Baso # (Auto) 0.0 Abs Immat Gran (auto) 0.02 Absolute Neuts (auto) 6.8 Absolute Nucleated RBC 0.000 Nucleated RBC % (auto) 0.0 PT 13.7 H INR 1.1 VBG pH 7.40 VBG pCO2 51 VBG pO2 29 VBG HCO3 32 H VBG O2 Saturation 32.0 VBG Base Excess 6.0 Anion Gap 16 Estim Creat Clear Calc 44.7 Estimated GFR > 60 POC Glucose Random Glucose 125 H Lactic Acid 3.1 H* Lactic Acid F/U @ 2Hr Calcium 9.5 D Total Bilirubin 0.2 Direct Bilirubin < 0.2 AST 32 ALT 27 Alkaline Phosphatase 130 H C-Reactive Protein 7.48 H Total Protein 8.4 H Albumin 3.5 Urine Color Urine Appearance Urine pH Ur Specific [place] Urine Protein Urine Glucose (UA) Urine Ketones Urine Blood Urine Nitrite Ur Leukocyte Esterase COVID-19 ([facility]) Negative COVID-19 Clin Com See Note Influenza Type A ([facility]) Influenza Type B ([facility]) Influenza A & B Note 11/01/23 11/01/23 11/01/23 16:51 17:58 18:00 MCV MCH MCHC RDW Plt Count MPV Immature Gran % (Auto) Neut % (Auto) Lymph % (Auto) [place] % (Auto) Eos % (Auto) Baso % (Auto) Lymph # (Auto) [place] # (Auto) Eos # (Auto) Baso # (Auto) Abs Immat Gran (auto) Absolute Neuts (auto) Absolute Nucleated RBC Nucleated RBC % (auto) PT INR VBG pH VBG pCO2 VBG pO2 VBG HCO3 VBG O2 Saturation VBG Base Excess Anion Gap Estim Creat Clear Calc Estimated GFR POC Glucose Random Glucose Lactic Acid Lactic Acid F/U @ 2Hr 1.0 Calcium Total Bilirubin Direct Bilirubin AST ALT Alkaline Phosphatase C-Reactive Protein Total Protein Albumin Urine Color Yellow Urine Appearance Clear Urine pH 6.0 Ur Specific [place] 1.020 Urine Protein Negative Urine Glucose (UA) Negative Urine Ketones Negative Urine Blood Negative Urine Nitrite Negative Ur Leukocyte Esterase Negative COVID-19 ([facility]) COVID-19 Clin Com Influenza Type A ([place]) Negative Influenza Type B ([place]) Negative Influenza A & B Note See Note 11/02/23 11/02/23 02:05 05:37 MCV MCH MCHC RDW Plt Count MPV Immature Gran % (Auto) Neut % (Auto) Lymph % (Auto) [place] % (Auto) Eos % (Auto) Baso % (Auto) Lymph # (Auto) [place] # (Auto) Eos # (Auto) Baso # (Auto) Abs Immat Gran (auto) Absolute Neuts (auto) Absolute Nucleated RBC Nucleated RBC % (auto) PT INR VBG pH VBG pCO2 VBG pO2 VBG HCO3 VBG O2 Saturation VBG Base Excess Anion Gap Estim Creat Clear Calc Estimated GFR POC Glucose 80 77 Random Glucose Lactic Acid Lactic Acid F/U @ 2Hr Calcium Total Bilirubin Direct Bilirubin AST ALT Alkaline Phosphatase C-Reactive Protein Total Protein Albumin Urine Color Urine Appearance Urine pH Ur Specific [place] Urine Protein Urine Glucose (UA) Urine Ketones Urine Blood Urine Nitrite Ur Leukocyte Esterase COVID-19 ([facility]) COVID-19 Clin Com Influenza Type A ([place]) Influenza Type B ([place]) Influenza A & B Note Assessment and Plan (1) Decubitus ulcer: Status: Acute Plan 83M PMH paroxysmal afib, copd, advanced dementia, prostate ca, schizophrenia, chronic dysphagia, epilepsy, moderate protein calorie malnutrition, hypothryoid, presented with ams Severe sepsis and acute metabolic encephalopathy due to aspiration pneumonia +/- left greater trochanteric pressure ulcer infection Continue vancomycin and Zosyn Follow-up MRI Follow-up cultures REMEDY DEVELOPER eval Epilepsy Keppra Paroxysmal atrial fibrillation Not on anticoagulation Hypothyroid Synthroid Moderate protein calorie malnutrition Resume diet after REMEDY DEVELOPER eval if appropriate COPD Stable Schizophrenia Stable DVT prophylaxis with Lovenox Full Code reason for continued hospitalization:awaiting cultures, defervensence Quality Stroke Does the patient have a stroke diagnosis?: No VTE Prior VTE?: No VTE Risk Level:: Medical - moderate - high VTE Device Contraindication: Treatment Not Indicated VTE Drug Contraindication: N/A - Med Ordered
--- NOTE | 2023-11-02 09:18 | MHC.CM.PN ---
IMM 11/02. Pt with dx: advanced dementia, has a guardian/Kamila Daley ([phone]), copy of guardianship paperwork requested. Pt is a LTC resident of [facility] [place]. Per pts guardian he is completely dependent for all ADL's, and bedbound. DCP will be for [facility] to [facility] once medically cleared for D/C. PCP: Dr. Norris Muñoz
--- NOTE | 2023-11-02 10:56 | MHC.SLORD ---
Addendum entered and electronically signed by MILADIS Ashley 11/02/23 11:20: [facility] DINKEY OPERATOR reports patient able to self-feed if upright in chair. Otherwise, requires 1-1 assist. Reportedly, diet upgrades have been attempted however patient keeps getting sick. MBS has not been recommended d/t pt's positioning. Original Note: Speech Language Pathology Order Status: Per RN, patient not appropriate to participate in DINKEY OPERATOR swallow evaluation. DINKEY OPERATOR confirmed w/ [facility] Rehab team that pt's current baseline is minced & moist solids and mildly thick liquids; equivalent to ground solids (NDD2) and nectar thick liquids. DINKEY OPERATOR to continue to follow.
[2023-11-02] MEDS: levETIRAcetam in NaCl (iso-os) 500 MG/100 ML PIGGYBACK 400 MG IV ×2 (11:28→22:06)
[2023-11-02] MEDS: Collagenase Clostridium Hist. 30 GM TUBE 1 APPL TOPICAL (11:51)
--- NOTE | 2023-11-02 14:34 | HO.WOUND ---
Wound Consult: Initial 83yr old? M [place] [facility] [place] - See progress notes and H&P for detailed history.? Wound consult placed for Bilateral Hips, buttock and heels wounds present on admission.? Patient was expressing protective behaviors and was non verbal in communication. He often spoke in nonsensical words tow nurses were able to provide care to him. Left Hip / Trochanter Etiology: Stage 3 Pressure Injury -??Present on Admission Measurements: see charting for detailed measurements Wound Bed: [place] red moist wound bed with undermining present - no palpable bone noted Drainage / Odor: miramontes yellow pooling drainage in wound bed Edges: ? unattached Osmany wound: ?Hypopigmented tissue surrounded by hyperpigmented tissue - No Induration, Fluctuance or Warmth noted Pain: pt did not respond to assessment Goals of Treatment: ? Moisture managment with Alginate Left Buttock Etiology: Unstageable Pressure Injury -??Present on Admission Measurements: see charting for detailed measurements Wound Bed: Thick adherent brown necrotic tissue Drainage / Odor: scant miramontes yellow Edges: ? unattached Osmany wound: ?Hypopigmented tissue surrounded by hyperpigmented tissue - No Induration, Fluctuance or Warmth noted Pain: pt did not respond to assessment Goals of Treatment: ? Enzymatic debridement with Santyl Left Lateral Heel Etiology: Deep Tissue Injury -??Present on Admission Measurements: see charting for detailed measurements Wound Bed:Maroon purple wound bed Drainage / Odor: None Edges: ? attached Osmany wound: ?Dry pink erythema - No Induration, Fluctuance or Warmth noted Pain: pt did not respond to assessment Goals of Treatment: ? Moisture managment with Alginate Right Hip / Iliac Crest Etiology: Stage 3 Pressure Injury -??Present on Admission Measurements: see charting for detailed measurements Wound Bed: [place] red moist wound bed with thin yellow slough with undermining present - no palpable bone noted Drainage / Odor: miramontes yellow drainage on dressing Edges: ? unattached Osmany wound: ?Macerated tissue surrounded by hyperpigmented tissue - No Induration, Fluctuance or Warmth noted Pain: pt did not respond to assessment Goals of Treatment: ? Moisture managment with Alginate Several areas of old pressure injury noted - see photos for locations. Recommendations: 1. Turn and Reposition every 2 hours and as needed for patient comfort.? Use pillows or wedges to support off loading positions. 2. Off Load all bony prominences with use of pillows and heel boots if needed.? Apply Preventative foams where needed. ? 3. Monitor for incontinence and moisture control, use barrier creams when needed for prevention and treatment. 4. Provide adequate and supplemental nutrition.? 5. Continue low air loss mattress. 6. Right Hip, Left hip and Left Heel - Off Load Pressure - Cleanse and irrigate with NS, Pat dry.? Apply barrier to periwound, lightly pack with Durafiber AG, be sure to leave a wick to easy removal.? Cover with Foam dressing.? Change Daily. 7. Left Buttock - Off Load Pressure - Cleanse with normal saline, pat dry. ?Apply barrier to the immediate osmany wound, apply thick layer of Santyl to entire wound bed, cover with gauze, secure foam dressing, change Daily. Re-consult wound care Nurse for wound deterioration or wound changes.
--- NOTE | 2023-11-02 15:22 | MHC.CLN ---
NUTRITION CONSULT FOR WOUNDS. NPO PENDING SWALLOW EVAL. PER MOBILE PET GROOMER NOTE, NOT APPROPRIATE FOR SWALLOW EVAL TODAY. DIET AT LTC FACILITY GROUND WITH NECTAR THICK LIQUIDS. REVIEW OF WEIGHT HX SHOWS NO RECENT SIGNIFICANT WEIGHT LOSS. NUTRITION DX NON SEVERE, MODERATE, MALNUTRITION IN THE CONTEXT OF CHRONIC ILLNESS. MODERATE DEPLETION OF BODY FAT AND MUSCLE MASS NOTED. INCREASED PROTEIN NEEDS DUE TO MULTIPLE AREAS OF IMPAIRED SKIN. FOLLOW FOR DIET ADVANCEMENT AND PROVIDE NUTRITIONAL SUPPLEMENTS FOR INCREASED PROTEIN AND KCALS APPROPRIATE.
[2023-11-02 21:46] LABS: MANUAL DIFF FLAG NO
[2023-11-02 21:47] LABS: Basophils Percent Auto 0.4 % (0-2); Eosinophils Absolute Auto 0.3 X10*3/uL (0.0-0.4); Eosinophils Percent Auto 2.9 % (0-4); Hematocrit 33.5 % (42.0-52.0); Hemoglobin 9.8 g/dl (14.0-18.0); Imm Gran Abs Auto 0.04 X10*3/uL (0.00-0.03); Imm Gran Pct Auto 0.4 % (0.0-0.4); Lymphocytes Absolute Auto 1.6 X10*3/uL (1.2-4.9); Lymphocytes Percent Auto 15.6 % (20-40); Mean Corpuscular HGB Conc 29.3 g/dl (31.0-36.0); Mean Corpuscular Hemoglobin 24.1 pg (27.0-33.0); Mean Corpuscular Volume 82.5 fL (80.0-98.0); Mean Platelet Volume 9.1 fL (9.4-12.4); Monocytes Absolute Auto 0.6 X10*3/uL (0.1-1.2); Monocytes Percent Auto 6.2 % (2-11); Neutrophils Absolute Auto 7.4 x10*3/uL (2.0-8.3); Neutrophils Percent Auto 74.5 % (45-73); Platelet Count 397 X10*3/uL (160-400); Red Blood Count 4.06 X10*6/uL (4.60-5.80); Red Cell Distribution Width 22.1 % (11.0-16.0); White Blood Count 9.9 X10*3/uL (4.8-10.8)
[2023-11-02 22:02] LABS: Anion Gap 14 (12-20); Blood Urea Nitrogen 18 mg/dL (9-16); Calcium 9.1 mg/dL (8.4-10.2); Carbon Dioxide 24 mmol/L (22-29); Chloride 117 mmol/L (96-108); Creatinine Clr Calc Pharmacy 61.2; Estimated Glomerular Filt Rate > 60; Glucose Random 68 mg/dL (60-115); Sodium 151 mmol/L (135-145)
[2023-11-02] MEDS: Enoxaparin Sodium 40 MG/0.4 ML SYRINGE SUBCUT (22:24)
--- NOTE | 2023-11-02 22:27 | PM.EVENT ---
Event Note Date of Service: 11/02/23 Event Note: Hypernatremia noted, ordering hypotonic fluids. Closely monitor serum sodium Time Spent With Patient Time: Total time managing care of this patient today ____ minutes.
[2023-11-02] MEDS: Dextrose 5 % 1,000 ML 100 ML IVCONT (22:34)
--- NOTE | 2023-11-02 22:37 | PC.NURSE ---
blood work not done in am d/t pt's aggressive behavior , blood work done tonight . Sodium serum 151, started on D5W at 100 ml per hr
--- NOTE | 2023-11-02 23:56 | W.PM.IDCN ---
History of Present Illness Data of Consult Service Date: 11/02/23 Requesting physician: Nico Peraza Primary Care Provider: Norris Muñoz, DO HPI Reason for consult: sepsis?ON He presents from [facility] where he vomited x 2. He has areas left posterior greater trochanter gas,cannot rule out OM. He remains on Zosyn and Vancomycin Review of Systems Review of Systems: Yes Unobtainable due to mental condition PMFSH Past Medical History Medical History Pressure injury of hip, stage 2 Atrial fibrillation Urinary retention Dementia Urinary tract infection Moderate protein-calorie malnutrition Occipital infarction Atrial fibrillation BPH loc w urin obs/LUTS Dementia Schizophrenia COPD (chronic obstructive pulmonary disease) Prostate cancer Malignant neoplasm of prostate Family History Family History Other Family history unknown Social History Social History Household Members: Unknown / Unable to assess Household Members Other:: SNF Housing: [facility] Housing Other:: [facility] Do you presently have visiting nurse or other home services: No Unable to assess alcohol history related to: Unable to respond and Unknown Alcohol intake: unknown Patient Tobacco Use Status: Tobacco use Unknown Second Hand Smoke Exposure: No Advance Directives Date on File: 05/18/22 service: No Current occupational status: disabled Meds Allergies Allergy/AdvReac Type Severity Reaction Status Date / Time No Known Allergies Allergy Verified 11/04/23 11:40 [No Known Allergies*] Active Medications: Current Medications Acetaminophen (Acetaminophen Supp 650 Mg Supp.Rect) 650 mg WI Q6H PRN PRN Reason: Fever Aspirin (Aspirin Enteric Coated 81 Mg Tablet.) 81 mg PO DAILY [facility] Last Admin: 11/02/23 08:20 Dose: Not Given Atorvastatin Calcium (Atorvastatin Calcium 20 Mg Tablet) 20 mg PO BEDTIME [facility] Last Admin: 11/02/23 20:27 Dose: Not Given Baclofen (Baclofen 10 Mg Tablet) 10 mg PO TID [facility] Last Admin: 11/02/23 20:28 Dose: Not Given Bisacodyl (Bisacodyl 5 Mg Tablet.) 5 mg PO BEDTIME [facility] Last Admin: 11/02/23 20:27 Dose: Not Given Bisacodyl (Bisacodyl 10 Mg Supp.Rect) 10 mg WI DAILY PRN PRN Reason: Constipation Bisacodyl (Bisacodyl 10 Mg Supp.Rect) 10 mg WI MoWeFr@0900 [facility] Last Admin: 11/02/23 08:20 Dose: Not Given Collagenase (Collagenase Clostridium Hist. 30 Gm Tube) 1 appl TOPICAL DAILY [facility]; Protocol Last Admin: 11/02/23 11:51 Dose: 1 appl Diazepam (Diazepam 10 Mg/2 Ml Cartridge) 5 mg IVPUSH ONCE PRN PRN Reason: bone scan Enoxaparin Sodium (Enoxaparin Sodium 40 Mg/0.4 Ml Syringe) 40 mg SUBCUT Q24H [facility] Last Admin: 11/02/23 22:24 Dose: 40 mg Finasteride (Finasteride 5 Mg Tablet) 5 mg PO DAILY [facility] Last Admin: 11/02/23 08:20 Dose: Not Given Gabapentin (Gabapentin 100 Mg Capsule) 100 mg PO BID [facility] Last Admin: 11/02/23 20:28 Dose: Not Given Levetiracetam (Keppra) 500 mg in 100 mls @ 400 mls/hr IV Q12H [facility] Last Infusion: 11/02/23 22:25 Dose: Infused Piperacillin Sod/Tazobactam (Sod 4.5 gm/ Sodium Chloride) 100 mls @ 200 mls/hr IV Q6H [facility] Last Infusion: 11/02/23 22:58 Dose: Infused Vancomycin HCl 1,250 mg/ (Sodium Chloride) 250 mls @ 166.667 mls/hr IV Q24H [facility] Dextrose (D5w) 1,000 mls @ 100 mls/hr IVCONT .Q10H [facility] Last Admin: 11/02/23 22:34 Dose: 100 mls/hr Lactulose (Lactulose 20 Gm/30 Ml Solution) 20 gm PO BID [facility] Last Admin: 11/02/23 20:27 Dose: Not Given Levothyroxine Sodium (Levothyroxine Sodium 112 Mcg Tablet) 112 mcg PO DAILY@0600 [facility] Last Admin: 11/02/23 04:42 Dose: Not Given Metoclopramide HCl (Metoclopramide Hcl 10 Mg Tablet) 10 mg PO BIDAC [facility] Last Admin: 11/02/23 17:12 Dose: Not Given Multivitamins/Vitamin C (Multivitamin Tablet) 1 tab PO DAILY [facility] Last Admin: 11/02/23 08:20 Dose: Not Given Omeprazole (Omeprazole 20 Mg Capsule.Dr) 20 mg PO BID@0630,1630 [facility] Last Admin: 11/02/23 17:12 Dose: Not Given Ondansetron HCl (Ondansetron Hcl 4 Mg/2 Ml Vial) 4 mg IVPUSH Q8H PRN PRN Reason: Nausea and Vomiting Pharmacy Consult (Consult Rx Vancomycin Dosing) 1 each MISCELLANE DAILY PRN PRN Reason: Consult order Polyethylene Glycol (Polyethylene Glycol 3350 17 Gm Powd.Pack) 17 gm PO DAILY [facility] Last Admin: 11/02/23 08:20 Dose: Not Given Propranolol HCl (Propranolol Hcl 20 Mg Tablet) 20 mg PO TID [facility]; Protocol Last Admin: 11/02/23 20:28 Dose: Not Given Senna (Sennosides 8.6 Mg Tablet) 8.6 mg PO DAILY PRN PRN Reason: Constipation Senna/Docusate Sodium (Sennosides/Docusate Sodium Tablet) 2 tab PO BID [facility] Last Admin: 11/02/23 20:27 Dose: Not Given Sodium Biphosphate/Sodium Phosphate (Sodium Phosphate,[place]-Dibasic 133 Ml Enema) 118 ml [place] DAILY PRN PRN Reason: Constipation Tamsulosin HCl (Tamsulosin Hcl 0.4 Mg Capsule) 0.4 mg PO DAILY@2100 [facility] Last Admin: 11/02/23 20:27 Dose: Not Given Tramadol HCl (Tramadol Hcl 50 Mg Tablet) 50 mg PO TID [facility] Last Admin: 11/02/23 20:27 Dose: Not Given Home Medications ?Medication ?Instructions ?Recorded ?Confirmed ?Last Taken ?Type acetaminophen 325 mg tablet 650 mg PO Q4H PRN PAIN/TEMP 12/30/21 12/04/23 12/04/23 13:10 History atorvastatin 20 mg tablet 20 mg PO BEDTIME 12/30/21 12/04/23 12/03/23 21:00 History bisacodyl 10 mg rectal suppository 10 mg WI MOWEFR 12/30/21 12/04/23 12/02/23 20:00 History esomeprazole magnesium 40 mg 40 mg PO BID 12/30/21 12/04/23 12/04/23 09:00 History capsule,delayed release (Nexium) gabapentin 100 mg capsule 100 mg PO BID 12/30/21 12/04/23 12/04/23 09:00 History haloperidol decanoate 50 mg/mL 10 mg IM Q21D 12/30/21 12/04/23 12/09/22 History intramuscular solution (Haldol Decanoate) lactulose 10 gram/15 mL oral 20 g PO BID 12/30/21 12/04/23 12/04/23 09:00 History solution multivitamin 1 tab PO DAILY 12/30/21 12/04/23 12/04/23 09:00 History propranolol 20 mg tablet 20 mg PO TID 12/30/21 12/04/23 12/04/23 14:00 History sennosides 8.6 mg tablet (senna) 8.6 mg PO DAILY PRN Constipation 12/30/21 12/04/23 Unknown History sennosides 8.6 mg-docusate sodium 2 tab PO BID 12/30/21 12/04/23 12/04/23 09:00 History 50 mg tablet (Senna Plus) tamsulosin 0.4 mg capsule 0.4 mg PO DAILY@2100 12/30/21 12/04/23 12/03/23 21:00 History metoclopramide HCl 10 mg tablet 10 mg PO BIDAC 02/06/22 12/04/23 12/04/23 09:00 History acidophilus 100 million 1 cap PO DAILY 11/15/22 12/04/23 12/04/23 09:00 History cell-pectin, citrus 10 mg capsule aspirin 81 mg capsule 81 mg PO DAILY 12/21/22 12/04/23 12/04/23 09:00 History bisacodyl 10 mg rectal suppository 10 mg WI DAILY PRN Constipation 12/21/22 12/04/23 Unknown History bisacodyl 5 mg tablet 5 mg PO BEDTIME 12/21/22 12/04/23 12/03/23 21:00 History sodium phosphates 19 gram-7 118 ml WI DAILY PRN Constipation 12/21/22 12/04/23 Unknown History gram/118 mL enema (Fleet Enema) levothyroxine 112 mcg tablet 112 mcg PO DAILY 05/30/23 12/04/23 12/04/23 09:00 History levetiracetam 500 mg tablet 500 mg PO BID 08/11/23 12/04/23 12/04/23 08:00 History baclofen 10 mg tablet 10 mg PO TID 11/01/23 12/04/23 12/04/23 14:00 History linezolid 600 mg tablet 600 mg PO BID 12/04/23 12/04/23 12/04/23 09:00 History oxycodone 5 mg tablet 5 mg PO TID 12/04/23 12/04/23 12/04/23 14:00 History Physical Exam Vital Signs: Vital Signs: Last Vital Signs Temp 97.7 F 11/02/23 19:44 Pulse 99 11/02/23 19:44 Resp 19 11/02/23 23:55 BP 124/84 11/02/23 19:44 Pulse Ox 98 11/02/23 19:44 O2 Del Method Room Air 11/02/23 19:44 O2 Flow Rate 2 11/02/23 15:34 Oxygen Flow Rate 3 11/01/23 14:59 BMI result Body Mass Index 21.4 Back/Spine/Pelvis: Other: ulcer back,lower buttock Results Labs 11/05/23 05:42 11/06/23 05:31 Labs: Short CBC 11/02/23 Range/Units 21:33 WBC 9.9 (4.8-10.8) X10*3/uL Hgb 9.8 L (14.0-18.0) g/dl Hct 33.5 L (42.0-52.0) % Plt Count 397 (160-400) X10*3/uL BMP 11/02/23 21:33 Sodium 151 H Potassium 4.0 D Chloride 117 H Carbon Dioxide 24 BUN 18 H Creatinine 0.75 Calcium 9.1 Microbiology Microbiology Results: Microbiology 11/01/23 15:27 Blood - Venous Blood Culture - Preliminary No growth after 24 hours. 11/01/23 15:11 Blood - Venous Blood Culture - Preliminary No growth after 24 hours. Assessment and Plan (1) Decubitus ulcer: Status: Acute Check bone scan as MRI not likely possible (2) Aspiration pneumonia: Status: Acute Plan Contineu Zosyn and Vancomycin for now,duration depends on results from [facility]
[2023-11-03] MEDS: vancomycin HCL 1,250 MG in 0.9 % Sodium Chloride 250 ML 166.67 MG IV ×2 (00:50→23:51)
[2023-11-03] MEDS: Piperacillin Sodium/Tazobactam 4.5 GM in 0.9 % Sodium Chloride 100 ML IV ×4 (04:46→23:09)
[2023-11-03 06:01] LABS: Hematocrit 33.3 % (42.0-52.0); Hemoglobin 9.7 g/dl (14.0-18.0); Mean Corpuscular HGB Conc 29.1 g/dl (31.0-36.0); Mean Corpuscular Hemoglobin 24.3 pg (27.0-33.0); Mean Corpuscular Volume 83.3 fL (80.0-98.0); Mean Platelet Volume 9.1 fL (9.4-12.4); Platelet Count 393 X10*3/uL (160-400); Red Cell Distribution Width 21.9 % (11.0-16.0)
[2023-11-03 06:18] LABS: Anion Gap 14 (12-20); Blood Urea Nitrogen 15 mg/dL (9-16); Calcium 8.8 mg/dL (8.4-10.2); Carbon Dioxide 24 mmol/L (22-29); Chloride 114 mmol/L (96-108); Creatinine Clr Calc Pharmacy 58.1; Estimated Glomerular Filt Rate > 60; Glucose Fasting 87 mg/dL (60-99); Potassium 3.6 mmol/L (3.3-5.1); Sodium 148 mmol/L (135-145)
[2023-11-03 06:19] LABS: Anion Gap 17 (12-20); Blood Urea Nitrogen 15 mg/dL (9-16); Calcium 8.7 mg/dL (8.4-10.2); Carbon Dioxide 24 mmol/L (22-29); Chloride 113 mmol/L (96-108); Creatinine Clr Calc Pharmacy 56.6; Estimated Glomerular Filt Rate > 60; Glucose Random 89 mg/dL (60-115); Potassium 3.6 mmol/L (3.3-5.1); Sodium 150 mmol/L (135-145)
[2023-11-03 07:29] LABS: Erythrocyte Sedimentation Rate 90 MM/HR (0-15)
[2023-11-03 07:54] VITALS: BP 135/95; PULSE 84; RESP 20; TEMP 36.8; O2SAT 94
--- NOTE | 2023-11-03 09:12 | P.PNIM_ITS ---
Subjective Subjective Date of Service: 11/03/23 Review of Systems Review of Systems: Yes Unobtainable due to mental condition Physical Exam 2 Vital Signs: Vital Signs: Last Vital Signs Temp 98.2 F 11/03/23 07:54 Pulse 84 11/03/23 07:54 Resp 20 11/03/23 07:54 BP 135/95 H 11/03/23 07:54 Pulse Ox 94 11/03/23 07:54 O2 Del Method Nasal Cannula 11/03/23 07:54 O2 Flow Rate 2 11/03/23 07:54 Oxygen Flow Rate 3 11/01/23 14:59 BMI result Body Mass Index 21.4 Back/Spine/Pelvis: Other: ulcer back,lower buttock Objective Data Active Medications Acetaminophen (Acetaminophen Supp 650 Mg Supp.Rect) 650 mg NM Q6H PRN PRN Reason: Fever Aspirin (Aspirin Enteric Coated 81 Mg Tablet.) 81 mg PO DAILY [facility] Last Admin: 11/02/23 08:20 Dose: Not Given Documented By: JENNIFER Non-Admin Reason: NPO Atorvastatin Calcium (Atorvastatin Calcium 20 Mg Tablet) 20 mg PO BEDTIME [facility] Last Admin: 11/02/23 20:27 Dose: Not Given Documented By: JASON Non-Admin Reason: NPO Baclofen (Baclofen 10 Mg Tablet) 10 mg PO TID [facility] Last Admin: 11/02/23 20:28 Dose: Not Given Documented By: JASON Non-Admin Reason: NPO Bisacodyl (Bisacodyl 5 Mg Tablet.) 5 mg PO BEDTIME [facility] Last Admin: 11/02/23 20:27 Dose: Not Given Documented By: JASON Non-Admin Reason: NPO Bisacodyl (Bisacodyl 10 Mg Supp.Rect) 10 mg NM DAILY PRN PRN Reason: Constipation Bisacodyl (Bisacodyl 10 Mg Supp.Rect) 10 mg NM MoWeFr@0900 [facility] Last Admin: 11/02/23 08:20 Dose: Not Given Documented By: JENNIFER Non-Admin Reason: NPO Collagenase (Collagenase Clostridium Hist. 30 Gm Tube) 1 appl TOPICAL DAILY [facility]; Protocol Last Admin: 11/02/23 11:51 Dose: 1 appl Documented By: JENNIFER Comments: late d/t dsg change Diazepam (Diazepam 10 Mg/2 Ml Cartridge) 5 mg IVPUSH ONCE PRN PRN Reason: bone scan Enoxaparin Sodium (Enoxaparin Sodium 40 Mg/0.4 Ml Syringe) 40 mg SUBCUT Q24H [facility] Last Admin: 11/02/23 22:24 Dose: 40 mg Documented By: JASON Finasteride (Finasteride 5 Mg Tablet) 5 mg PO DAILY [facility] Last Admin: 11/02/23 08:20 Dose: Not Given Documented By: JENNIFER Non-Admin Reason: NPO Gabapentin (Gabapentin 100 Mg Capsule) 100 mg PO BID [facility] Last Admin: 11/02/23 20:28 Dose: Not Given Documented By: JASON Non-Admin Reason: NPO Levetiracetam (Keppra) 500 mg in 100 mls @ 400 mls/hr IV Q12H [facility] Last Infusion: 11/02/23 22:25 Dose: Infused Documented By: JASON Piperacillin Sod/Tazobactam (Sod 4.5 gm/ Sodium Chloride) 100 mls @ 200 mls/hr IV Q6H [facility] Last Infusion: 11/03/23 05:26 Dose: Infused Documented By: ANTSUSAN Vancomycin HCl 1,250 mg/ (Sodium Chloride) 250 mls @ 166.667 mls/hr IV Q24H [facility] Last Infusion: 11/03/23 02:48 Dose: Infused Documented By: MARGAUX Dextrose (D5w) 1,000 mls @ 100 mls/hr IVCONT .Q10H [facility] Last Admin: 11/02/23 22:34 Dose: 100 mls/hr Documented By: JASON Lactulose (Lactulose 20 Gm/30 Ml Solution) 20 gm PO BID [facility] Last Admin: 11/02/23 20:27 Dose: Not Given Documented By: JASON Non-Admin Reason: NPO Levothyroxine Sodium (Levothyroxine Sodium 112 Mcg Tablet) 112 mcg PO DAILY@0600 [facility] Last Admin: 11/03/23 04:01 Dose: Not Given Documented By: MARGAUX Non-Admin Reason: NPO Metoclopramide HCl (Metoclopramide Hcl 10 Mg Tablet) 10 mg PO BIDAC [facility] Last Admin: 11/02/23 17:12 Dose: Not Given Documented By: JASON Non-Admin Reason: NPO Multivitamins/Vitamin C (Multivitamin Tablet) 1 tab PO DAILY [facility] Last Admin: 11/02/23 08:20 Dose: Not Given Documented By: JENNIFER Non-Admin Reason: NPO Omeprazole (Omeprazole 20 Mg Capsule.Dr) 20 mg PO BID@0630,1630 [facility] Last Admin: 11/03/23 04:01 Dose: Not Given Documented By: MARGAUX Non-Admin Reason: NPO Ondansetron HCl (Ondansetron Hcl 4 Mg/2 Ml Vial) 4 mg IVPUSH Q8H PRN PRN Reason: Nausea and Vomiting Pharmacy Consult (Consult Rx Vancomycin Dosing) 1 each MISCELLANE DAILY PRN PRN Reason: Consult order Polyethylene Glycol (Polyethylene Glycol 3350 17 Gm Powd.Pack) 17 gm PO DAILY [facility] Last Admin: 11/02/23 08:20 Dose: Not Given Documented By: JENNIFER Non-Admin Reason: NPO Propranolol HCl (Propranolol Hcl 20 Mg Tablet) 20 mg PO TID [facility]; Protocol Last Admin: 11/02/23 20:28 Dose: Not Given Documented By: JASON Non-Admin Reason: NPO Senna (Sennosides 8.6 Mg Tablet) 8.6 mg PO DAILY PRN PRN Reason: Constipation Senna/Docusate Sodium (Sennosides/Docusate Sodium Tablet) 2 tab PO BID [facility] Last Admin: 11/02/23 20:27 Dose: Not Given Documented By: JASON Non-Admin Reason: NPO Sodium Biphosphate/Sodium Phosphate (Sodium Phosphate,[place]-Dibasic 133 Ml Enema) 118 ml NM DAILY PRN PRN Reason: Constipation Tamsulosin HCl (Tamsulosin Hcl 0.4 Mg Capsule) 0.4 mg PO DAILY@2100 [facility] Last Admin: 11/02/23 20:27 Dose: Not Given Documented By: JASON Non-Admin Reason: NPO Tramadol HCl (Tramadol Hcl 50 Mg Tablet) 50 mg PO TID [facility] Last Admin: 11/02/23 20:27 Dose: Not Given Documented By: JASON Non-Admin Reason: NPO Labs 11/03/23 05:41 11/03/23 05:41 Labs: Laboratory Results - last 24 hr 11/02/23 11/03/23 11/03/23 21:33 05:41 05:41 MCV 82.5 83.3 MCH 24.1 L 24.3 L MCHC 29.3 L 29.1 L RDW 22.1 H 21.9 H Plt Count 397 393 MPV 9.1 L 9.1 L Immature Gran % (Auto) 0.4 Neut % (Auto) 74.5 H Lymph % (Auto) 15.6 L Gem % (Auto) 6.2 Eos % (Auto) 2.9 Baso % (Auto) 0.4 Lymph # (Auto) 1.6 Gem # (Auto) 0.6 Eos # (Auto) 0.3 Baso # (Auto) 0.0 Abs Immat Gran (auto) 0.04 H Absolute Neuts (auto) 7.4 Absolute Nucleated RBC 0.000 0.000 Nucleated RBC % (auto) 0.0 0.0 ESR 90 H Anion Gap 14 14 17 Estim Creat Clear Calc 61.2 58.1 Estimated GFR > 60 Random Glucose 68 Fasting Glucose Calcium 9.1 11/03/23 11/03/23 11/03/23 05:41 05:41 05:41 MCV MCH MCHC RDW Plt Count MPV Immature Gran % (Auto) Neut % (Auto) Lymph % (Auto) Gem % (Auto) Eos % (Auto) Baso % (Auto) Lymph # (Auto) Gem # (Auto) Eos # (Auto) Baso # (Auto) Abs Immat Gran (auto) Absolute Neuts (auto) Absolute Nucleated RBC Nucleated RBC % (auto) ESR Anion Gap Estim Creat Clear Calc 56.6 Estimated GFR > 60 > 60 Random Glucose 89 Fasting Glucose 87 Calcium 8.8 8.7 Microbiology Microbiology Results: Microbiology 11/01/23 15:27 Blood Culture - Preliminary Blood - Venous No growth after 24 hours. 11/01/23 15:11 Blood Culture - Preliminary Blood - Venous No growth after 24 hours. Assessment and Plan (1) Decubitus ulcer: Status: Acute Plan 83M PMH paroxysmal afib, copd, advanced dementia, prostate ca, schizophrenia, chronic dysphagia, epilepsy, moderate protein calorie malnutrition, hypothryoid, presented with ams Severe sepsis and acute metabolic encephalopathy due to aspiration pneumonia +/- left greater trochanteric pressure ulcer infection id appreciated Continue vancomycin and Zosyn wont tolerate mri check bone scan Follow-up cultures SIGNALMAN eval hypernatremia d5w, monitor Epilepsy Keppra Paroxysmal atrial fibrillation Not on anticoagulation Hypothyroid Synthroid Moderate protein calorie malnutrition Resume diet after SIGNALMAN eval if appropriate COPD Stable Schizophrenia Stable DVT prophylaxis with Lovenox Full Code reason for continued hospitalization:awaiting cultures, defervensence Quality Stroke Does the patient have a stroke diagnosis?: No VTE Prior VTE?: No VTE Risk Level:: Medical - moderate - high VTE Device Contraindication: Treatment Not Indicated VTE Drug Contraindication: N/A - Med Ordered
[2023-11-03] MEDS: Dextrose 5 % 1,000 ML 100 ML IVCONT ×2 (09:50→19:53)
[2023-11-03] MEDS: Baclofen 10 MG TABLET PO ×3 (09:58→21:33)
[2023-11-03] MEDS: Aspirin Enteric Coated 81 MG TABLET.DR PO (09:58)
[2023-11-03] MEDS: traMADoL HCL 50 MG TABLET PO ×3 (09:58→21:33)
[2023-11-03] MEDS: Metoclopramide HCl 10 MG TABLET PO ×2 (09:58→14:58)
[2023-11-03] MEDS: Finasteride 5 MG TABLET PO (09:58)
[2023-11-03] MEDS: Multivitamin TABLET 1 TAB PO (09:58)
[2023-11-03] MEDS: Propranolol HCL 20 MG TABLET PO ×2 (09:58→21:33)
[2023-11-03] MEDS: Sennosides/Docusate Sodium TABLET 2 TAB PO (09:59)
[2023-11-03] MEDS: Gabapentin 100 MG CAPSULE PO ×2 (09:59→21:33)
[2023-11-03] MEDS: Lactulose 20 GM/30 ML SOLUTION PO (09:59)
[2023-11-03] MEDS: levETIRAcetam in NaCl (iso-os) 500 MG/100 ML PIGGYBACK 400 MG IV ×2 (10:10→21:28)
[2023-11-03] MEDS: diazePAM 10 MG/2 ML CARTRIDGE 5 MG IVPUSH ×2 (10:17→13:33)
--- NOTE | 2023-11-03 10:28 | PC.NURSE ---
At this time transport manager up to take patient to nuclear med scan. Contacted nuclear med to assess patient prior to transport as he is supposed to lay flat during scan however this patient is contacted. Nuclear med agreeable to come up to assess patient.
--- NOTE | 2023-11-03 10:47 | PC.NURSE ---
Patient off of floor now for nuclear med scan with transport aid.
[2023-11-03 11:24] VITALS: BP 112/53; PULSE 73; RESP 20; TEMP 36.3; O2SAT 94
--- NOTE | 2023-11-03 12:03 | MHC.SL.SWA ---
Speech Pathologist Impression: Risk of Aspiration Due to: History of Pneumonia Reduced Cognition Dysphasia Diet Status: Liquid Consistency and Strategies for Safe Swallow: Liquid Intake Recommendation: [place] Thick Liquid Intake Strategies: No Straws Liquids by Teaspoon Only Solid Food Consistency: Dietary Recommendations: Pureed (NDD1) Additional Modifications to Solid Foods: Patient will require careful positioning due to severity of LE and UE contracture, wound, and stooped posture. Attempted to elevate head of bed to at least 75 degrees with patient's head at similar angle. Patient requires 1-1 feed. Liquids by tsp only. Attempt to orient patient to food and liquid. Patient may sound like he rejects food/liquid, but persist and he generally accepts. Oral Medication Intake: Crushed with Puree Please contact the pharmacy regarding appropriate crushable or liquid drug formulations that are available whenever modified delivery is recommended. Compensatory Strategies and Precautions to be Taken for Safe Swallow: Sitting Upright (90 deg) No Straw Liquids from Spoon Small Bites and Sips Alternate Liquids/Solids Supervision While Eating and Drinking for Safe Swallow: Total Assistance (1:1) Foods to Avoid: Sticky, congealed purees. Add sauces/gravies and blend well. Swallowing Recommended Treatments: Compens. Strategy Educat. Recommendation for Speech: Inpatient Speech Therapy Comment: Patient presents with a moderate oral pharyngeal dysphagia, and is challenging to feed safely due to severe upper and lower extremity contractures, stooped posture, wound affecting positioning. Patient is also agitated/combative, but cooperated with eating today. Recommend START diet of PUREE (NDD1) with NECTAR THICK liquids, pills crushed in puree. Patient will require careful positioning, 1-1 feeding, and all liquids by tsp only. FAMILY MANAGER will continue to follow, re-assess swallow, advance diet as warranted. MD RD made aware of recommendations by ventura velázquez, RN in person. Frequency/Duration: Date Range for Service Req: Timeline to reassess: [employer] Contact Printer Clinican/Clinical Fellow: No Supervisory Statement: I have reviewed and agree with the student/clinical fellow's documentation: N/A Speech Language Pathologist: Valentina Ashley M.A., CCC-FAMILY MANAGER
--- NOTE | 2023-11-03 12:11 | MHC.CLN ---
RE: CONSULT SEE NUTRITION ASSESSMENT DATED 11/02/23 NUTRITION DX NON SEVERE, MODERATE, MALNUTRITION IN THE CONTEXT OF CHRONIC ILLNESS. MODERATE DEPLETION OF BODY FAT AND MUSCLE MA NUTRITION SUPPLEMENTS ADDED TODAY
[2023-11-03] MEDS: Collagenase Clostridium Hist. 30 GM TUBE 1 APPL TOPICAL (13:20)
[2023-11-03] MEDS: Omeprazole 20 MG CAPSULE.DR PO (14:58)
[2023-11-03 15:12] VITALS: BP 121/61; PULSE 67; RESP 20; TEMP 36.6; O2SAT 97
[2023-11-03 19:32] VITALS: BP 116/66; PULSE 77; RESP 18; TEMP 36.4; O2SAT 95
[2023-11-03] MEDS: Tamsulosin HCL 0.4 MG CAPSULE PO (21:32)
[2023-11-03] MEDS: Atorvastatin Calcium 20 MG TABLET PO (21:32)
[2023-11-03] MEDS: bisacodyL 5 MG TABLET.DR PO (21:33)
[2023-11-03] MEDS: Enoxaparin Sodium 40 MG/0.4 ML SYRINGE SUBCUT (23:09)
[2023-11-03 23:22] VITALS: BP 132/63; PULSE 74; RESP 20; TEMP 36.6; O2SAT 94
[2023-11-04 03:00] VITALS: BP 126/64; PULSE 70; RESP 20; TEMP 36.9; O2SAT 94
[2023-11-04] MEDS: Piperacillin Sodium/Tazobactam 4.5 GM in 0.9 % Sodium Chloride 100 ML IV ×4 (05:03→22:20)
[2023-11-04] MEDS: Levothyroxine Sodium 112 MCG TABLET PO (06:02)
[2023-11-04] MEDS: Omeprazole 20 MG CAPSULE.DR PO ×2 (06:02→17:58)
[2023-11-04] MEDS: Dextrose 5 % 1,000 ML 100 ML IVCONT ×2 (06:09→15:56)
[2023-11-04 07:22] LABS: Hematocrit 28.5 % (42.0-52.0); Hemoglobin 8.6 g/dl (14.0-18.0); Mean Corpuscular HGB Conc 30.2 g/dl (31.0-36.0); Mean Corpuscular Hemoglobin 24.4 pg (27.0-33.0); Mean Corpuscular Volume 80.7 fL (80.0-98.0); Mean Platelet Volume 9.3 fL (9.4-12.4); Platelet Count 357 X10*3/uL (160-400); Red Blood Count 3.53 X10*6/uL (4.60-5.80); Red Cell Distribution Width 21.6 % (11.0-16.0); White Blood Count 7.2 X10*3/uL (4.8-10.8)
[2023-11-04 07:37] LABS: Anion Gap 11 (12-20); Blood Urea Nitrogen 14 mg/dL (9-16); Calcium 7.9 mg/dL (8.4-10.2); Carbon Dioxide 26 mmol/L (22-29); Chloride 110 mmol/L (96-108); Creatinine Clr Calc Pharmacy 58.8; Estimated Glomerular Filt Rate > 60; Glucose Fasting 98 mg/dL (60-99); Potassium 3.5 mmol/L (3.3-5.1); Sodium 143 mmol/L (135-145)
[2023-11-04 07:39] VITALS: BP 118/57; PULSE 71; RESP 16; TEMP 36.2; O2SAT 95
[2023-11-04] MEDS: traMADoL HCL 50 MG TABLET PO ×2 (08:14→20:09)
[2023-11-04] MEDS: Multivitamin TABLET 1 TAB PO (08:14)
[2023-11-04] MEDS: Gabapentin 100 MG CAPSULE PO ×2 (08:15→20:09)
[2023-11-04] MEDS: Aspirin Enteric Coated 81 MG TABLET.DR PO (08:15)
[2023-11-04] MEDS: Finasteride 5 MG TABLET PO (08:15)
[2023-11-04] MEDS: Metoclopramide HCl 10 MG TABLET PO ×2 (08:15→17:58)
[2023-11-04] MEDS: Propranolol HCL 20 MG TABLET PO (08:15)
[2023-11-04] MEDS: Baclofen 10 MG TABLET PO ×2 (08:15→20:09)
[2023-11-04] MEDS: Collagenase Clostridium Hist. 30 GM TUBE 1 APPL TOPICAL (08:16)
--- NOTE | 2023-11-04 09:15 | HO.PM.IMPN ---
Subjective Subjective Date of Service: 11/04/23 Review of Systems Review of Systems: Yes Unobtainable due to mental condition Physical Exam Vital Signs: Vital Signs: Last Vital Signs Temp 97.2 F 11/04/23 07:39 Pulse 71 11/04/23 07:39 Resp 16 11/04/23 07:39 BP 118/57 L 11/04/23 07:39 Pulse Ox 95 11/04/23 07:39 O2 Del Method Nasal Cannula 11/04/23 07:39 O2 Flow Rate 2 11/04/23 07:39 Oxygen Flow Rate 3 11/01/23 14:59 BMI result Body Mass Index 21.4 Back/Spine/Pelvis: Other: ulcer back,lower buttock Objective Data Active Medications Acetaminophen (Acetaminophen Supp 650 Mg Supp.Rect) 650 mg RI Q6H PRN PRN Reason: Fever Aspirin (Aspirin Enteric Coated 81 Mg Tablet.) 81 mg PO DAILY [facility] Last Admin: 11/04/23 08:15 Dose: 81 mg Documented By: SHELDON Atorvastatin Calcium (Atorvastatin Calcium 20 Mg Tablet) 20 mg PO BEDTIME [facility] Last Admin: 11/03/23 21:32 Dose: 20 mg Documented By: SELENA Baclofen (Baclofen 10 Mg Tablet) 10 mg PO TID [facility] Last Admin: 11/04/23 08:15 Dose: 10 mg Documented By: SHELDON Bisacodyl (Bisacodyl 5 Mg Tablet.) 5 mg PO BEDTIME [facility] Last Admin: 11/03/23 21:33 Dose: 5 mg Documented By: SELENA Bisacodyl (Bisacodyl 10 Mg Supp.Rect) 10 mg RI DAILY PRN PRN Reason: Constipation Bisacodyl (Bisacodyl 10 Mg Supp.Rect) 10 mg RI MoWeFr@0900 [facility] Last Admin: 11/02/23 08:20 Dose: Not Given Documented By: JENNIFER Non-Admin Reason: NPO Collagenase (Collagenase Clostridium Hist. 30 Gm Tube) 1 appl TOPICAL DAILY [facility]; Protocol Last Admin: 11/04/23 08:16 Dose: 1 appl Documented By: SHELDON Diazepam (Diazepam 10 Mg/2 Ml Cartridge) 2.5 mg IVPUSH ONCE PRN PRN Reason: IR procedure Enoxaparin Sodium (Enoxaparin Sodium 40 Mg/0.4 Ml Syringe) 40 mg SUBCUT Q24H [facility] Last Admin: 11/03/23 23:09 Dose: 40 mg Documented By: SELENA Finasteride (Finasteride 5 Mg Tablet) 5 mg PO DAILY [facility] Last Admin: 11/04/23 08:15 Dose: 5 mg Documented By: SHELDON Gabapentin (Gabapentin 100 Mg Capsule) 100 mg PO BID [facility] Last Admin: 11/04/23 08:15 Dose: 100 mg Documented By: SHELDON Levetiracetam (Keppra) 500 mg in 100 mls @ 400 mls/hr IV Q12H [facility] Last Infusion: 11/03/23 21:50 Dose: Infused Documented By: SELENA Piperacillin Sod/Tazobactam (Sod 4.5 gm/ Sodium Chloride) 100 mls @ 200 mls/hr IV Q6H [facility] Last Infusion: 11/04/23 05:46 Dose: Infused Documented By: SELENA Vancomycin HCl 1,250 mg/ (Sodium Chloride) 250 mls @ 166.667 mls/hr IV Q24H [facility] Last Infusion: 11/04/23 01:21 Dose: Infused Documented By: SELENA Dextrose (D5w) 1,000 mls @ 100 mls/hr IVCONT .Q10H [facility] Last Admin: 11/04/23 06:09 Dose: 100 mls/hr Documented By: SELENA Lactulose (Lactulose 20 Gm/30 Ml Solution) 20 gm PO BID [facility] Last Admin: 11/03/23 21:25 Dose: Not Given Documented By: SELENA Non-Admin Reason: x4 BM Levothyroxine Sodium (Levothyroxine Sodium 112 Mcg Tablet) 112 mcg PO DAILY@0600 [facility] Last Admin: 11/04/23 06:02 Dose: 112 mcg Documented By: SELENA Metoclopramide HCl (Metoclopramide Hcl 10 Mg Tablet) 10 mg PO BIDAC [facility] Last Admin: 11/04/23 08:15 Dose: 10 mg Documented By: SHELDON Multivitamins/Vitamin C (Multivitamin Tablet) 1 tab PO DAILY [facility] Last Admin: 11/04/23 08:14 Dose: 1 tab Documented By: SHELDON Omeprazole (Omeprazole 20 Mg Capsule.) 20 mg PO BID@0630,1630 [facility] Last Admin: 11/04/23 06:02 Dose: 20 mg Documented By: SELENA Ondansetron HCl (Ondansetron Hcl 4 Mg/2 Ml Vial) 4 mg IVPUSH Q8H PRN PRN Reason: Nausea and Vomiting Pharmacy Consult (Consult Rx Vancomycin Dosing) 1 each MISCELLANE DAILY PRN PRN Reason: Consult order Polyethylene Glycol (Polyethylene Glycol 3350 17 Gm Powd.Pack) 17 gm PO DAILY [facility] Last Admin: 11/03/23 10:09 Dose: Not Given Documented By: PRAVIN Non-Admin Reason: NPO Propranolol HCl (Propranolol Hcl 20 Mg Tablet) 20 mg PO TID [facility]; Protocol Last Admin: 11/04/23 08:15 Dose: 20 mg Documented By: SHELDON Senna (Sennosides 8.6 Mg Tablet) 8.6 mg PO DAILY PRN PRN Reason: Constipation Senna/Docusate Sodium (Sennosides/Docusate Sodium Tablet) 2 tab PO BID [facility] Last Admin: 11/03/23 21:34 Dose: Not Given Documented By: SELENA Non-Admin Reason: x4 BM Sodium Biphosphate/Sodium Phosphate (Sodium Phosphate,[place]-Dibasic 133 Ml Enema) 118 ml RI DAILY PRN PRN Reason: Constipation Tamsulosin HCl (Tamsulosin Hcl 0.4 Mg Capsule) 0.4 mg PO DAILY@2100 [facility] Last Admin: 11/03/23 21:32 Dose: 0.4 mg Documented By: SELENA Tramadol HCl (Tramadol Hcl 50 Mg Tablet) 50 mg PO TID [facility] Last Admin: 11/04/23 08:14 Dose: 50 mg Documented By: SHELDON Labs 11/04/23 06:44 11/04/23 06:44 Labs: Laboratory Results - last 24 hr 11/04/23 06:44 MCV 80.7 MCH 24.4 L MCHC 30.2 L RDW 21.6 H Plt Count 357 MPV 9.3 L Absolute Nucleated RBC 0.000 Nucleated RBC % (auto) 0.0 Anion Gap 11 L Estim Creat Clear Calc 58.8 Estimated GFR > 60 Fasting Glucose 98 Calcium 7.9 L D Microbiology Microbiology Results: Microbiology 11/01/23 15:27 Blood Culture - Preliminary Blood - Venous No growth after 48 hours. 11/01/23 15:11 Blood Culture - Preliminary Blood - Venous No growth after 48 hours. Assessment and Plan (1) Decubitus ulcer: Status: Acute Plan 83M PMH paroxysmal afib, copd, advanced dementia, prostate ca, schizophrenia, chronic dysphagia, epilepsy, moderate protein calorie malnutrition, hypothryoid, presented with ams Severe sepsis and acute metabolic encephalopathy due to aspiration pneumonia +/- left greater trochanteric pressureulcer, acute osteomyelitis id appreciated Continue vancomycin and Zosyn Follow-up cultures hypernatremia resolved Epilepsy Keppra Paroxysmal atrial fibrillation Not on anticoagulation Hypothyroid Synthroid Moderate protein calorie malnutrition encourage po COPD Stable Schizophrenia Stable DVT prophylaxis with Lovenox Full Code reason for continued hospitalization:iv abx for bone infection Quality Stroke Does the patient have a stroke diagnosis?: No VTE Prior VTE?: No VTE Risk Level:: Medical - moderate - high VTE Device Contraindication: Treatment Not Indicated VTE Drug Contraindication: N/A - Med Ordered
[2023-11-04] MEDS: levETIRAcetam in NaCl (iso-os) 500 MG/100 ML PIGGYBACK 400 MG IV ×2 (10:30→22:02)
[2023-11-04 11:18] VITALS: BP 124/65; PULSE 76; RESP 20; TEMP 36.7; O2SAT 93
--- NOTE | 2023-11-04 11:33 | MHC.SL.SWA ---
Speech Pathologist Impression: Risk of aspiration, oropharyngeal dysphagia Risk of Aspiration Due to: History of Pneumonia Reduced Cognition Dysphasia Diet Status: No changes at this time Liquid Consistency and Strategies for Safe Swallow: Liquid Intake Recommendation: [place] Thick Liquid Intake Strategies: Small Sips No Straws Solid Food Consistency: Dietary Recommendations: Pureed (NDD1) Additional Modifications to Solid Foods: Recommend CONTINUE on PUREED (NDD1) diet and NECTAR THICK liquids, pills CRUSHED in PUREE. Pt requires total 1:1 assistance feeding. Minimize distractions during meal time and maintain strict aspiration precautions. CRIMINAL LAWYER will continue to follow to monitor pt's tolerance of PO and to re-assess for potential upgrade if appropriate. Oral Medication Intake: Crushed with Puree Please contact the pharmacy regarding appropriate crushable or liquid drug formulations that are available whenever modified delivery is recommended. Compensatory Strategies and Precautions to be Taken for Safe Swallow: Sitting Upright (90 deg) No Straw Liquids from Cup Liquids from Spoon Small Bites and Sips Rate of Ingestion Change Oral Check Avoid Specific Foods Supervision While Eating and Drinking for Safe Swallow: Total Assistance (1:1) Foods to Avoid: Sticky, congealed purees. Add sauces/gravies and blend well. Swallowing Recommended Treatments: Compens. Strategy Educat. Recommendation for Speech: Inpatient Speech Therapy Comment: Patient presents with a moderate oral pharyngeal dysphagia, and is challenging to feed safely due to severe upper and lower extremity contractures, stooped posture, wound affecting positioning. Patient is also agitated/combative, but cooperated with eating today. Recommend diet of PUREE (NDD1) with NECTAR THICK liquids, pills crushed in puree. Patient will require careful positioning, 1-1 feeding, and all liquids by tsp only. CRIMINAL LAWYER will continue to follow, re-assess swallow, advance diet as warranted. Frequency/Duration: PRN M-F Date Range for Service Req: Timeline to reassess: Clinical Pharmacologist Clinican/Clinical Fellow: No Supervisory Statement: I have reviewed and agree with the student/clinical fellow's documentation: N/A Speech Language Pathologist: Halle Mccarthy M.A., [facility]-CRIMINAL LAWYER
--- NOTE | 2023-11-04 12:29 | MHC.CLN ---
F/U PT ATE 100% X1 MEAL DIET RX: PUREED WITH NT LIQ-APPROPRIATE PT RECEIVING ENSURE MAX BID TO PROMOTE WOUND HEALING SUPP PROVIDES 300KCALS, 60G PROTEIN WITH 100% ACCEPTANCE MONITOR PO INTAKE AND ENCOURAGE SUPPLEMENTS
[2023-11-04 15:19] VITALS: BP 147/65; PULSE 88; RESP 20; TEMP 36.5; O2SAT 93
--- NOTE | 2023-11-04 15:48 | MHC.CM.PN ---
EMR reviewed and per MD rounds, pt is not medically cleared for D/C due to need for treatment of osteomyelitis requiring IV antibiotics. 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 CM will continue to follow.
[2023-11-04] MEDS: diazePAM 10 MG/2 ML CARTRIDGE 2.5 MG IVPUSH (15:55)
--- NOTE | 2023-11-04 17:48 | HO.PICC ---
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 Following completion of [place]l Protocol the skin and soft tissues were anesthetized with 1% Lidocaine plain. Using ultrasound guidance, left brachial vein access was obtained. Over an 0.018 wire through peel-away sheath, a 4FR single lumen PASV PICC line was positioned. Catheter length is 49 CM internal length, 0 CM external length, for a total trimmed length of 49 CM. The procedure was performed in S272. Tip verification was performed by Adrian Metzger with Jacqueline 3CG. Tip located in SVC. Ultrasound was used to document vein patency and for needle entry. A formal ultrasound picture and cardiac rhythm strip was recorded. Vascular Screening Tech has released the line for use and it is currently dressed with a StatLock, Tegaderm, and CHG disc. Verification has been performed for blood return and line patency. Arm Circumference: 23 CM Equipment: Biscoot PowerPICC SOLO Catheter Type: 4FR single lumen PASV PICC Lot #: [id number]
[2023-11-04 19:25] VITALS: BP 109/58; PULSE 83; RESP 17; TEMP 36.4; O2SAT 96
[2023-11-04] MEDS: Tamsulosin HCL 0.4 MG CAPSULE PO (20:09)
[2023-11-04] MEDS: Atorvastatin Calcium 20 MG TABLET PO (20:09)
[2023-11-04 21:42] LABS: Vancomycin Trough 12.3 mcg/mL (10.0-20.0)
[2023-11-04] MEDS: Enoxaparin Sodium 40 MG/0.4 ML SYRINGE SUBCUT (22:21)
[2023-11-04 23:09] VITALS: BP 148/85; PULSE 80; RESP 19; TEMP 36.7; O2SAT 95
[2023-11-04] MEDS: vancomycin HCL 1,500 MG in 0.9 % Sodium Chloride 500 ML 333.33 MG IV (23:52)
[2023-11-05 03:20] VITALS: BP 141/78; PULSE 80; RESP 17; TEMP 36.8; O2SAT 93
[2023-11-05] MEDS: Piperacillin Sodium/Tazobactam 4.5 GM in 0.9 % Sodium Chloride 100 ML IV (05:08)
[2023-11-05] MEDS: Omeprazole 20 MG CAPSULE.DR PO ×2 (05:10→16:09)
[2023-11-05] MEDS: Levothyroxine Sodium 112 MCG TABLET PO (05:10)
[2023-11-05 06:20] LABS: Hematocrit 30.9 % (42.0-52.0); Hemoglobin 9.2 g/dl (14.0-18.0); Mean Corpuscular HGB Conc 29.8 g/dl (31.0-36.0); Mean Corpuscular Hemoglobin 23.8 pg (27.0-33.0); Mean Corpuscular Volume 80.1 fL (80.0-98.0); Mean Platelet Volume 9.2 fL (9.4-12.4); Platelet Count 380 X10*3/uL (160-400); Red Blood Count 3.86 X10*6/uL (4.60-5.80); Red Cell Distribution Width 21.3 % (11.0-16.0); White Blood Count 6.3 X10*3/uL (4.8-10.8)
[2023-11-05 06:36] LABS: Anion Gap 12 (12-20); Blood Urea Nitrogen 14 mg/dL (9-16); Calcium 8.6 mg/dL (8.4-10.2); Carbon Dioxide 27 mmol/L (22-29); Chloride 109 mmol/L (96-108); Creatinine Clr Calc Pharmacy 60.4; Estimated Glomerular Filt Rate > 60; Glucose Fasting 92 mg/dL (60-99); Potassium 3.9 mmol/L (3.3-5.1); Sodium 144 mmol/L (135-145)
[2023-11-05 07:40] VITALS: BP 124/61; PULSE 80; RESP 20; TEMP 36.5; O2SAT 98
--- NOTE | 2023-11-05 09:10 | P.PNIM_ITS ---
Subjective Subjective Date of Service: 11/05/23 Review of Systems Review of Systems: Yes Unobtainable due to mental condition Physical Exam 2 Vital Signs: Vital Signs: Last Vital Signs Temp 97.7 F 11/05/23 07:40 Pulse 80 11/05/23 07:40 Resp 20 11/05/23 07:40 BP 124/61 11/05/23 07:40 Pulse Ox 98 11/05/23 07:40 O2 Del Method Nasal Cannula 11/05/23 07:40 O2 Flow Rate 3 11/05/23 07:40 Oxygen Flow Rate 3 11/01/23 14:59 BMI result Body Mass Index 21.4 Back/Spine/Pelvis: Other: ulcer back,lower buttock Objective Data Active Medications Acetaminophen (Acetaminophen Supp 650 Mg Supp.Rect) 650 mg OH Q6H PRN PRN Reason: Fever Aspirin (Aspirin Enteric Coated 81 Mg Tablet.) 81 mg PO DAILY [facility] Last Admin: 11/04/23 08:15 Dose: 81 mg Documented By: SHELDON Atorvastatin Calcium (Atorvastatin Calcium 20 Mg Tablet) 20 mg PO BEDTIME [facility] Last Admin: 11/04/23 20:09 Dose: 20 mg Documented By: DOYLE Baclofen (Baclofen 10 Mg Tablet) 10 mg PO TID [facility] Last Admin: 11/04/23 20:09 Dose: 10 mg Documented By: DOYLE Bisacodyl (Bisacodyl 5 Mg Tablet.) 5 mg PO BEDTIME [facility] Last Admin: 11/04/23 20:10 Dose: Not Given Documented By: DOYLE Non-Admin Reason: many loose stools Bisacodyl (Bisacodyl 10 Mg Supp.Rect) 10 mg OH DAILY PRN PRN Reason: Constipation Bisacodyl (Bisacodyl 10 Mg Supp.Rect) 10 mg OH MoWeFr@0900 [facility] Last Admin: 11/04/23 09:51 Dose: Not Given Documented By: SHELDON Non-Admin Reason: pt having multiple loose stools Collagenase (Collagenase Clostridium Hist. 30 Gm Tube) 1 appl TOPICAL DAILY [facility]; Protocol Last Admin: 11/04/23 08:16 Dose: 1 appl Documented By: SHELDON Enoxaparin Sodium (Enoxaparin Sodium 40 Mg/0.4 Ml Syringe) 40 mg SUBCUT Q24H [facility] Last Admin: 11/04/23 22:21 Dose: 40 mg Documented By: DOYLE Finasteride (Finasteride 5 Mg Tablet) 5 mg PO DAILY [facility] Last Admin: 11/04/23 08:15 Dose: 5 mg Documented By: SHELDON Gabapentin (Gabapentin 100 Mg Capsule) 100 mg PO BID [facility] Last Admin: 11/04/23 20:09 Dose: 100 mg Documented By: DOYLE Levetiracetam (Keppra) 500 mg in 100 mls @ 400 mls/hr IV Q12H [facility] Last Infusion: 11/04/23 22:30 Dose: Infused Documented By: DOYLE Piperacillin Sod/Tazobactam (Sod 4.5 gm/ Sodium Chloride) 100 mls @ 200 mls/hr IV Q6H [facility] Last Infusion: 11/05/23 05:50 Dose: Infused Documented By: VICTORIANO Vancomycin HCl 1,500 mg/ (Sodium Chloride) 500 mls @ 333.333 mls/hr IV Q24H [facility] Last Infusion: 11/05/23 01:52 Dose: Infused Documented By: VICTORIANO Lactulose (Lactulose 20 Gm/30 Ml Solution) 20 gm PO BID [facility] Last Admin: 11/04/23 20:59 Dose: Not Given Documented By: DOYLE Non-Admin Reason: many loose stools Levothyroxine Sodium (Levothyroxine Sodium 112 Mcg Tablet) 112 mcg PO DAILY@0600 [facility] Last Admin: 11/05/23 05:10 Dose: 112 mcg Documented By: VICTORIANO Metoclopramide HCl (Metoclopramide Hcl 10 Mg Tablet) 10 mg PO BIDAC [facility] Last Admin: 11/04/23 17:58 Dose: 10 mg Documented By: SHELDON Multivitamins/Vitamin C (Multivitamin Tablet) 1 tab PO DAILY [facility] Last Admin: 11/04/23 08:14 Dose: 1 tab Documented By: SHELDON Omeprazole (Omeprazole 20 Mg Capsule.) 20 mg PO BID@0630,1630 [facility] Last Admin: 11/05/23 05:10 Dose: 20 mg Documented By: VICTORIANO Ondansetron HCl (Ondansetron Hcl 4 Mg/2 Ml Vial) 4 mg IVPUSH Q8H PRN PRN Reason: Nausea and Vomiting Pharmacy Consult (Consult Rx Vancomycin Dosing) 1 each MISCELLANE DAILY PRN PRN Reason: Consult order Polyethylene Glycol (Polyethylene Glycol 3350 17 Gm Powd.Pack) 17 gm PO DAILY [facility] Last Admin: 11/04/23 09:51 Dose: Not Given Documented By: SHELDON Non-Admin Reason: pt having multiple loose stools Propranolol HCl (Propranolol Hcl 20 Mg Tablet) 20 mg PO TID [facility]; Protocol Last Admin: 11/04/23 20:10 Dose: Not Given Documented By: DOYLE Non-Admin Reason: Many loos stools Senna (Sennosides 8.6 Mg Tablet) 8.6 mg PO DAILY PRN PRN Reason: Constipation Senna/Docusate Sodium (Sennosides/Docusate Sodium Tablet) 2 tab PO BID [facility] Last Admin: 11/04/23 20:11 Dose: Not Given Documented By: DOYLE Non-Admin Reason: many loose stools Sodium Biphosphate/Sodium Phosphate (Sodium Phosphate,[place]-Dibasic 133 Ml Enema) 118 ml OH DAILY PRN PRN Reason: Constipation Sodium Chloride (0.9 % Sodium Chloride Flush 10 Ml Syringe) 5 ml IVFLUSH TID [facility] Tamsulosin HCl (Tamsulosin Hcl 0.4 Mg Capsule) 0.4 mg PO DAILY@2100 [facility] Last Admin: 11/04/23 20:09 Dose: 0.4 mg Documented By: DOYLE Tramadol HCl (Tramadol Hcl 50 Mg Tablet) 50 mg PO TID [facility] Last Admin: 11/04/23 20:09 Dose: 50 mg Documented By: DOYLE Labs 11/05/23 05:42 11/05/23 05:42 Labs: Laboratory Results - last 24 hr 11/04/23 11/05/23 21:22 05:42 MCV 80.1 MCH 23.8 L MCHC 29.8 L RDW 21.3 H Plt Count 380 MPV 9.2 L Absolute Nucleated RBC 0.000 Nucleated RBC % (auto) 0.0 Anion Gap 12 Estim Creat Clear Calc 60.4 Estimated GFR > 60 Fasting Glucose 92 Calcium 8.6 D Vancomycin Trough 12.3 Assessment and Plan (1) Decubitus ulcer: Status: Acute Plan 83M PMH paroxysmal afib, copd, advanced dementia, prostate ca, schizophrenia, chronic dysphagia, epilepsy, moderate protein calorie malnutrition, hypothryoid, presented with ams Severe sepsis and acute metabolic encephalopathy due to aspiration pneumonia +/- left greater trochanteric pressureulcer, acute osteomyelitis id appreciated Continue vancomycin and Zosyn cultures negative to date IR attempted abscess drainage, but none seen on US s/p picc 11/04/23 hypernatremia resolved Epilepsy Keppra Paroxysmal atrial fibrillation Not on anticoagulation Hypothyroid Synthroid Moderate protein calorie malnutrition encourage po COPD Stable Schizophrenia Stable DVT prophylaxis with Lovenox Full Code reason for continued hospitalization:iv abx for bone infection Quality Stroke Does the patient have a stroke diagnosis?: No VTE Prior VTE?: No VTE Risk Level:: Medical - moderate - high VTE Device Contraindication: Treatment Not Indicated VTE Drug Contraindication: N/A - Med Ordered
[2023-11-05] MEDS: levETIRAcetam in NaCl (iso-os) 500 MG/100 ML PIGGYBACK 400 MG IV ×2 (10:30→23:04)
[2023-11-05] MEDS: 0.9 % Sodium Chloride Flush 10 ML SYRINGE 5 ML IVFLUSH ×3 (10:31→22:43)
[2023-11-05] MEDS: Collagenase Clostridium Hist. 30 GM TUBE 1 APPL TOPICAL (10:31)
[2023-11-05 11:39] VITALS: BP 138/89; PULSE 107; RESP 16; TEMP 36.4; O2SAT 93
--- NOTE | 2023-11-05 12:46 | P.PNID_ITS ---
Subjective Subjective Date of Service: 11/05/23 Critical Care Time (minutes): 15 Comment: he has bone scan shows suspicious area around left hip c/w OM Objective Data Labs 11/05/23 05:42 11/05/23 05:42 Labs: Laboratory Results - last 24 hr 11/04/23 11/05/23 21:22 05:42 WBC 6.3 RBC 3.86 L Hgb 9.2 L Hct 30.9 L MCV 80.1 MCH 23.8 L MCHC 29.8 L RDW 21.3 H Plt Count 380 MPV 9.2 L Absolute Nucleated RBC 0.000 Nucleated RBC % (auto) 0.0 Sodium 144 Potassium 3.9 Chloride 109 H Carbon Dioxide 27 Anion Gap 12 BUN 14 Creatinine 0.76 Estim Creat Clear Calc 60.4 Estimated GFR > 60 Fasting Glucose 92 Calcium 8.6 D Vancomycin Trough 12.3 Microbiology Microbiology Results: Microbiology 11/01/23 15:27 Blood - Venous Blood Culture - Preliminary No growth after 48 hours. 11/01/23 15:11 Blood - Venous Blood Culture - Preliminary No growth after 48 hours. Physical Exam 2 Vital Signs: Vital Signs: Last Vital Signs Temp 97.5 F 11/05/23 11:39 Pulse 107 H 11/05/23 11:39 Resp 16 11/05/23 11:39 BP 138/89 11/05/23 11:39 Pulse Ox 93 11/05/23 11:39 O2 Del Method Nasal Cannula 11/05/23 11:39 O2 Flow Rate 2 11/05/23 11:39 Oxygen Flow Rate 3 11/01/23 14:59 BMI result Body Mass Index 21.4 Const: General: no acute distress Eyes: General: appearance normal, both eyes and all related structures Resp: Effort & Inspection: normal respiratory effort Cardio: Rate: regular rate Rhythm: regular rhythm GI: Inspection: Yes normal to inspection Skin: Other: left hip decubitus area Assessment and Plan Assessment and plan (1) Decubitus ulcer: Problem details: He has OM left trochanter area MRSA still concern since had in past Renal function risk but benefit outweighs Status: Acute (2) Aspiration pneumonia: Status: Acute Plan Vancomycin for six weeks Creatinine and Vancomycin trough weekly and then consider po Doxycycline month or two after. Time Spent With Patient Time: Total time managing care of this patient today ____ minutes.
[2023-11-05] MEDS: Morphine Sulfate 2 MG/ML CARTRIDGE 1 MG IVPUSH ×2 (15:32→23:50)
[2023-11-05] MEDS: Propranolol HCL 20 MG TABLET PO ×2 (15:32→22:45)
[2023-11-05] MEDS: traMADoL HCL 50 MG TABLET PO ×2 (15:33→22:45)
[2023-11-05] MEDS: Baclofen 10 MG TABLET PO ×2 (15:33→22:45)
[2023-11-05 15:53] VITALS: BP 142/81; PULSE 102; RESP 20; TEMP 37.8; O2SAT 92
[2023-11-05] MEDS: Metoclopramide HCl 10 MG TABLET PO (16:09)
[2023-11-05 19:45] VITALS: BP 137/64; PULSE 70; RESP 18; TEMP 36.9; O2SAT 91
--- NOTE | 2023-11-05 22:05 | HE.PHANOTE ---
VANCO DOSE ADJUSTMENT BASED ON SCR AND TROUGH OF 15 DOSE CONTINUED AT 1500 Q 24H. NEXT LEVEL AT 2 @ 2100
[2023-11-05] MEDS: Tamsulosin HCL 0.4 MG CAPSULE PO (22:40)
[2023-11-05] MEDS: Atorvastatin Calcium 20 MG TABLET PO (22:44)
[2023-11-05] MEDS: Gabapentin 100 MG CAPSULE PO (22:45)
[2023-11-05] MEDS: Enoxaparin Sodium 40 MG/0.4 ML SYRINGE SUBCUT (22:46)
[2023-11-05 23:14] VITALS: BP 150/81; PULSE 88; RESP 18; TEMP 37.6; O2SAT 94
[2023-11-05] MEDS: vancomycin HCL 1,500 MG in 0.9 % Sodium Chloride 500 ML 333.33 MG IV (23:51)
[2023-11-06 01:33] VITALS: PULSE 72; RESP 16
[2023-11-06 04:00] VITALS: BP 107/58; PULSE 81; RESP 18; TEMP 36.5; O2SAT 92
[2023-11-06] MEDS: Omeprazole 20 MG CAPSULE.DR PO (06:07)
[2023-11-06] MEDS: Levothyroxine Sodium 112 MCG TABLET PO (06:07)
[2023-11-06 06:08] LABS: Creatinine Clr Calc Pharmacy 62.8; Estimated Glomerular Filt Rate > 60
[2023-11-06 07:33] VITALS: BP 115/61; PULSE 71; RESP 18; TEMP 36.7; O2SAT 97
--- NOTE | 2023-11-06 07:39 | HE.PHANOTE ---
ALYSE PETERSON Patient is not due for a level today. next level is tomorrow 11/07 @2100. Continue dose of 1500 mg Q24H. predicted AUC 457. Renal function (scr) down to 0.73 from 0.76 yesterday/
--- NOTE | 2023-11-06 07:51 | MHC.CM.PN ---
Patient has been medically cleared for dc to SNF/LTC today. Patient will return to LTC @ [facility] today at 11 AM, via [facility].DC IMM to be addressed today with Guardian/Kamila @ [phone].
--- NOTE | 2023-11-06 07:55 | P.DS_ITS ---
DS: Providers Provider Date of Service: 11/06/23 Date of admission: 11/01/23 22:05 Primary care physician: Norris Muñoz DO Consults: 11/01/23 22:25 Consult to Wound Care Routine Reason for consultation: chronic decubitus ulcers 11/02/23 12:07 Consult to Infectious Diseases Routine [place]ing [place] [facility] [place] Reason for consultation: sepsis, ?OM DS: Diagnosis Discharge Diagnosis (1) Decubitus ulcer: Status: Acute (2) Aspiration pneumonia: Status: Acute DS: Summary Hospital Course Hospital Course: from initial hpi: 83-year-old gentleman resident of [facility] with past medical history of atrial fibrillation, COPD, advanced dementia, prostate cancer, schizophrenia, chronic dysphagia with h/o aspiration, epilepsy, moderate protein calorie malnutrition, and hypothyroidism presented to the ED via EMS from [facility] where is resides due to hypoxia, vomiting, and suspected aspiration. Pt had episode of nonbloody emesis earlier today and was found to be hypoxic to 88% on RA, places on 2L supplemental O2 and was tachycardic to 135, lwo grade fever 100 prior to arrival. Pt unable to provide history. On arrival, pt febrile to 102.8, tachycardic to 125, tachypneic to 34. Arrived to the ED on supplemental O2 but has been weaned to room air now maintaining oximetry 93%. There was no leukocytosis. Renal function baseline, electrolyte levels normal except for mild hyponatremia of 147. Initial lactic acid 3.1, improved to 1.0 following IV fluid administration. Hepatic function within normal limits. Troponin 3.9. Urinalysis unremarkable. Negative for COVID-19, influenza. CT chest shows left lower lobe pneumonia. CT abdomen pelvis negative for any acute intra abdominal abnormality but does show stercoral colitis as well as subcutaneous gas and skin thickening over the left posterior greater trochanter consistent with decubitus ulcer and associated osteomyelitis can not be excluded. In the ED, treated with IV zosyn, 2L IVF, zofran. hospital course: Patient was admitted for severe sepsis and acute metabolic encephalopathy due to aspiration pneumonia and left greater trochanteric pressure ulcer with acute osteomyelitis. He was treated with vancomycin Zosyn, sepsis resolved, patient returned to baseline mental status. Cultures were negative. Nuclear scan was done which revealed osteomyelitis of the left hip with concern for abscess. Was seen by IR who performed ultrasound did not find drainable fluid. Seen by Infectious Disease recommended 6 weeks of IV vancomycin with weekly labs and trough. PICC line placed. End date 12/12/2023. Course complicated by hypernatremia which resolved with IV fluids. For dysphagia was seen by RECONCILIATION ACCOUNTANT who recommended pureed diet with nectar thick liquids. For epilepsy was continued on Keppra. For paroxysmal atrial fibrillation patient is not on anticoagulation. For hypothyroidism was continued on Synthroid. For moderate protein calorie malnutrition p.o. nutrition is encouraged. For COPD remained stable. For schizophrenia he remained stable. Patient is back to baseline and will be discharged back [facility]. Time Attestation Discharge coordination time: Greater than 30 minutes Quality: Safe Use of Opioids Does Pt have an Active Cancer Diagnosis on the Problem List?: No Quality: Stroke Does the patient have a stroke diagnosis?: No Physical Exam Vital Signs: Vital Signs: Last Vital Signs Temp 98.0 F 11/06/23 07:33 Pulse 71 11/06/23 07:33 Resp 18 11/06/23 07:33 BP 115/61 11/06/23 07:33 Pulse Ox 97 11/06/23 07:33 O2 Del Method Nasal Cannula 11/06/23 07:33 O2 Flow Rate 2 11/06/23 07:33 Oxygen Flow Rate 3 11/01/23 14:59 BMI result Body Mass Index 21.4 Const: General: no acute distress Eyes: General: appearance normal, both eyes and all related structures Resp: Effort & Inspection: normal respiratory effort Cardio: Rate: regular rate Rhythm: regular rhythm GI: Inspection: Yes normal to inspection Skin: Other: left hip decubitus area DS: Data Data Completed and Pending Completed studies during hospitalization [Text1]: Procedures Introduction of Vasopressor into Peripheral Vein, Percutaneous Approach (05/15/22) Labs on day of discharge: Laboratory Results - last 24 hr 11/05/23 11/06/23 21:03 05:31 Hold Purple Top SEE NOTE Creatinine 0.73 Estim Creat Clear Calc 62.8 Estimated GFR > 60 Random Vancomycin 15.0 Preliminary micro results at discharge 11/01/23 15:27 Blood Culture - Preliminary Blood - Venous No growth after 48 hours. 11/01/23 15:11 Blood Culture - Preliminary Blood - Venous No growth after 48 hours. Discharge Plan Discharge Anticipated Discharge Date/Time: 11/06/23 07:52 Patient Disposition: Xfer LTC Discharge Diagnosis: sepsis, OM Referrals: [facility] [Outside] - 1 Week Norris Muñoz DO [Primary Care Provider] - 1 Week Discharge Medications: New vancomycin 1.5 gram recon soln 1.5 g IV Q24H Rx Instructions: end december 11 Continued acetaminophen 325 mg Tablet 650 mg PO Q4H PRN (Reason: PAIN/TEMP) atorvastatin 20 mg Tablet 20 mg PO BEDTIME bisacodyl 10 mg Suppository 10 mg DC MOWE Rx Instructions: tue,tue,tue gabapentin 100 mg Capsule 100 mg PO BID haloperidol decanoate [Haldol Decanoate] 50 mg/mL Solution 10 mg IM Q21D lactulose 10 gram/15 mL Solution 20 g PO BID esomeprazole magnesium [Nexium] 40 mg Capsule,Delayed Release(Dr/Ec) 40 mg PO BID@0630,1630 multivitamin Tablet 1 tab PO DAILY propranolol 20 mg Tablet 20 mg PO TID sennosides [senna] 8.6 mg Tablet 8.6 mg PO DAILY PRN (Reason: Constipation) sennosides-docusate sodium [Senna Plus] 8.6-50 mg Tablet 2 tab PO BID tamsulosin 0.4 mg Capsule 0.4 mg PO DAILY@2100 tramadol 50 mg Tablet 50 mg PO TID Rx Instructions: GIVE 8 HOURS APART FROM SCHEDULED DOSE metoclopramide HCl 10 mg Tablet 10 mg PO BIDAC acidophilus-pectin, citrus 100 million cell-10 mg Capsule 1 cap PO DAILY Rx Instructions: take with a meal polyethylene glycol 3350 17 gram Powder In Packet 17 g PO DAILY Qty: 30 0RF aspirin 81 mg Capsule 81 mg PO DAILY Hold Instructions: at [facility] to decide when to restart if needed bisacodyl 10 mg Suppository 10 mg DC DAILY PRN (Reason: Constipation) Rx Instructions: if senna is ineffetive bisacodyl 5 mg Tablet 5 mg PO BEDTIME Fleet Enema 19-7 gram/118 mL Enema 118 ml DC DAILY PRN (Reason: Constipation) Rx Instructions: if bisacodyl suppository is ineffective levetiracetam 500 mg Tablet 500 mg PO BID baclofen 10 mg Tablet 10 mg PO TID levothyroxine 112 mcg tablet 112 mcg PO DAILY finasteride 5 mg tablet 5 mg PO DAILY 90 Days Qty: 90 3RF Discharge Orders: Discharge Order (Routine); Ordered 11/06/23 Ordered By: Nico Peraza Diet: puree, nectar thick liq Activity on Discharge: As tolerated Stand Alone Forms: Patient Portal Discharge page Care Plan Goals: recovery Health Concerns: dysphagia, osteomyelitis Plan of Treatment: 6 weeks iv vancomycin (end december 12, 2023), weekly cbc, bmp, trough wound care: Recommendations: 1. Turn and Reposition every 2 hours and as needed for patient comfort.? Use pillows or wedges to support off loading positions. 2. Off Load all bony prominences with use of pillows and heel boots if needed.? Apply Preventative foams where needed. ? 3. Monitor for incontinence and moisture control, use barrier creams when needed for prevention and treatment. 4. Provide adequate and supplemental nutrition.? 5. Continue low air loss mattress. 6. Right Hip, Left hip and Left Heel - Off Load Pressure - Cleanse and irrigate with NS, Pat dry.? Apply barrier to periwound, lightly pack with Durafiber AG, be sure to leave a wick to easy removal.? Cover with Foam dressing.? Change Daily. 7. Left Buttock - Off Load Pressure - Cleanse with normal saline, pat dry. ?Apply barrier to the immediate osmany wound, apply thick layer of Santyl to entire wound bed, cover with gauze, secure foam dressing, change Daily. Assessment: see above
[2023-11-06] MEDS: traMADoL HCL 50 MG TABLET PO (07:59)
[2023-11-06] MEDS: Propranolol HCL 20 MG TABLET PO (08:00)
[2023-11-06] MEDS: Finasteride 5 MG TABLET PO (08:00)
[2023-11-06] MEDS: Aspirin Enteric Coated 81 MG TABLET.DR PO (08:00)
[2023-11-06] MEDS: Metoclopramide HCl 10 MG TABLET PO (08:00)
[2023-11-06] MEDS: Multivitamin TABLET 1 TAB PO (08:00)
[2023-11-06] MEDS: Gabapentin 100 MG CAPSULE PO (08:08)
[2023-11-06] MEDS: 0.9 % Sodium Chloride Flush 10 ML SYRINGE 5 ML IVFLUSH (08:11)
[2023-11-06] MEDS: Baclofen 10 MG TABLET PO (08:11)
[2023-11-06 11:28] VITALS: BP 117/78; PULSE 76; RESP 18; TEMP 36.7; O2SAT 94
== END 2023-11-06 13:19 | DRG 871 ==
LOC: HO.ED 22:04 → HO.EDOVER 22:19 → HO.IMC 23:18
PROVIDERS: Student in an Organized Health Care Education/Training Program; Admitting Provider Physician Assistant; Emergency Provider Emergency Medicine; PCP Hospitalist; Visit Provider Internal Medicine
DX: A41.9 Sepsis, unspecified organism (principal); G93.41 Metabolic encephalopathy; L89.213 Pressure ulcer of right hip, stage 3; J69.0 Pneumonitis due to inhalation of food and vomit; E44.0 Moderate protein-calorie malnutrition; E87.1 Hypo-osmolality and hyponatremia; E87.0 Hyperosmolality and hypernatremia; M86.152 Other acute osteomyelitis, left femur; K59.09 Other constipation; L89.220 Pressure ulcer of left hip, unstageable; R65.20 Severe sepsis without septic shock; F20.9 Schizophrenia, unspecified; E03.9 Hypothyroidism, unspecified; J44.9 Chronic obstructive pulmonary disease, unspecified; G40.909 Epilepsy, unspecified, not intractable, without status epilepticus; I48.0 Paroxysmal atrial fibrillation; F03.90 Unspecified dementia, unspecified severity, without behavioral disturbance, psychotic disturbance, mood disturbance, and anxiety; Z20.822 Contact with and (suspected) exposure to COVID-19; Z79.82 Long term (current) use of aspirin; Z79.890 Hormone replacement therapy; Z79.899 Other long term (current) drug therapy
CPT/HCPCS: 36415; 36573; 71045; 71250; 74176; 76881; 78315; 80048; 80076; 80202; 81003; 82565; 82803; 82947; 83605; 84484; 85025; 85027; 85610; 85652; 86140; 87040; 87502; 87635; 92526; 92610; 92950; 93005; 99285; A9503; C1751; J1650; J1953; J2270; J2405; J2543; J3360; J3371

== ENCOUNTER 2023-11-01 22:05 | Outpatient (BNV) | payer MEDICARE, MEDICAID, SELFPAY | END 2023-11-04 09:08 | PROVIDERS: Admitting Provider Physician Assistant; Emergency Provider Emergency Medicine; PCP Hospitalist; Visit Provider Radiology Diagnostic Radiology | DX: L89.229 Pressure ulcer of left hip, unspecified stage (principal) | CPT/HCPCS: 76881 ==

== ENCOUNTER → 2023-11-01 22:05 | Outpatient (BNV) | payer MEDICARE, MEDICAID, SELFPAY | PROVIDERS: Admitting Provider Physician Assistant; Emergency Provider Emergency Medicine; PCP Hospitalist; Visit Provider Physician Assistant | DX: L89.220 Pressure ulcer of left hip, unstageable (principal); J69.0 Pneumonitis due to inhalation of food and vomit; A41.9 Sepsis, unspecified organism; G93.41 Metabolic encephalopathy | CPT/HCPCS: 99223; 99232; 99233; 99239 ==

== ENCOUNTER → 2023-11-01 22:05 | Outpatient (BNV) | payer MEDICARE, MEDICAID, SELFPAY | PROVIDERS: Admitting Provider Physician Assistant; Emergency Provider Emergency Medicine; PCP Hospitalist; Visit Provider Internal Medicine | DX: L89.90 Pressure ulcer of unspecified site, unspecified stage (principal); J69.0 Pneumonitis due to inhalation of food and vomit | CPT/HCPCS: 99222 ==

== ENCOUNTER → 2023-11-01 22:05 | Outpatient (BNV) | payer MEDICARE, MEDICAID, SELFPAY | PROVIDERS: Admitting Provider Physician Assistant; Emergency Provider Emergency Medicine; PCP Hospitalist; Visit Provider Internal Medicine | DX: L89.90 Pressure ulcer of unspecified site, unspecified stage (principal); J69.0 Pneumonitis due to inhalation of food and vomit | CPT/HCPCS: 99232 ==

== ENCOUNTER 2023-11-04 11:37 | Outpatient (AMB) | payer MEDICARE, MEDICAID, SELFPAY ==
--- NOTE | 2023-11-04 11:10 | A.OFFVIS_ITS ---
Intake Intake Visit Reasons: 6m follow up Intake Note: Patient presents today for a follow-up Meds- Tamsulosin, Finasteride Allergies to Antibiotic- No Known Allergies Blood Thinner- Aspirin Machine Deburrer Required: No Accompanied by: Self / Same As Patient Allergies No Known Allergies [No Known Allergies*] Allergy (Verified 11/04/23 11:40) HPI HPI Comments History of Present Illness Details Juan is a pleasant male. He is a patient Dr. Muñoz. He is seen for following urologic conditions - elevated PSA - urinary urgency and frequency Telemedicine Evaluation 15 min Consultation Doximity Radha Video attempted [facility] resident Discussed with nurse PSA continues Slow fall now down to 1.7 Continue finasteride 6 month follow-up PSA office Prostate cancer Prior biopsy with Jon score 9 PSA followed 06/22 11.6, 12/22 10.6, 07/24 5.8. 01/23 3. 6, 04/24 3.3, 10/26 1.7 Finasteride started December 2021 Follow-up 6 months PSA - televisit [facility] Medical History Pressure injury of hip, stage 2 Atrial fibrillation Urinary retention Dementia Urinary tract infection Moderate protein-calorie malnutrition Occipital infarction Atrial fibrillation BPH loc w urin obs/LUTS Dementia Schizophrenia COPD (chronic obstructive pulmonary disease) Prostate cancer Malignant neoplasm of prostate Family History Other Family history unknown Social History Household Members: Other Household Members Other:: SN[facility] Housing: Other Housing Other:: [facility] Do you presently have visiting nurse or other home services: No Unable to assess alcohol history related to: Unable to respond and Unknown Alcohol intake: unknown Patient Tobacco Use Status: Tobacco use Unknown Second Hand Smoke Exposure: No Advance Directives Date on File: 05/18/22 service: No Current occupational status: disabled Review of Systems Const All systems reviewed & are unremarkable except as noted in HPI and below Reports no additional complaints Resp Reports no additional complaints GI Reports no additional complaints Reports as per HPI Musc Reports no additional complaints Physical Exam Telemedicine evaluation Appropriate responses Regular breathing rate and rhythm HEENT Head: Yes normal to inspection Ears: hearing grossly normal bilaterally Eyes General: appearance normal, both eyes and all related structures Neck Neck: Yes normal visual inspection Chest Chest palpation & inspection: normal inspection of the chest Resp Effort & Inspection: normal respiratory effort and able to speak in complete sentences Assessment & Plan Assessment & Plan (1) Malignant neoplasm of prostate: Code(s): C61 - Malignant neoplasm of prostate Plan Six-month follow-up PSA Orders: Orders Prostate Specific Antigen 6 Months C61 - Malignant neoplasm of prostate Patient Instructions: Imaging studies, laboratory and physical exam results were discussed and reviewed in detail. No major barriers to patient understanding were identified. An opportunity to ask questions regarding the treatment plan was provided. All questions were answered. The patient expressed understanding and agreement with the above treatment plan. The patient is aware they should contact our office by phone for worsening of their current condition or the appearance of new urologic symptoms. Compliance is encouraged with any medications and followup testing that is ordered. It is a privilege to participate in the urologic care of your patient. If you have any questions or concerns regarding treatment for the above conditions, or other urologic issues, please do not hesitate to contact me. The office telephone contact is [phone]. This note is constructed using voice recognition software. While every effort has been made to ensure accuracy activities manager errors may have been included. Yours sincerely, Dr Irineo Powell MD, MA[facility] - Urology Providers of Expert, Compassionate Care for the Genitourinary System Telehealth Telehealth Location of provider rendering services: practice address Location of patient: address on file Patient Identification confirmed using: Name, : Yes Telehealth method: voice only Patient verbally consented to treatment: Yes Patient verbally consented to billing insurance company: Yes Patient informed of any privacy concerns related to visit: Yes Coding Level of Care Code Tele Est Pt Level 3 (57223) Diagnoses Malignant neoplasm of prostate C61
--- NOTE | 2023-11-04 11:41 | MHC.OFFVIS ---
Intake Intake Visit Reasons: 6m follow up Allergies No Known Allergies [No Known Allergies*] Allergy (Verified 11/04/23 11:40) PFSH Medical History Pressure injury of hip, stage 2 Atrial fibrillation Urinary retention Dementia Urinary tract infection Moderate protein-calorie malnutrition Occipital infarction Atrial fibrillation BPH loc w urin obs/LUTS Dementia Schizophrenia COPD (chronic obstructive pulmonary disease) Prostate cancer Malignant neoplasm of prostate Family History Other Family history unknown Social History Household Members: Other Household Members Other:: SNF Housing: Other Housing Other:: [facility] Do you presently have visiting nurse or other home services: No Unable to assess alcohol history related to: Unable to respond and Unknown Alcohol intake: unknown Patient Tobacco Use Status: Tobacco use Unknown Second Hand Smoke Exposure: No Advance Directives Date on File: 05/18/22 service: No Current occupational status: disabled 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
== END 2023-11-04 13:26 | disposition home or self-care (01) ==
LOC: HO.HUSH 11:37
PROVIDERS: PCP Hospitalist; Visit Provider Urology
DX: C61 Malignant neoplasm of prostate (principal)
CPT/HCPCS: 99442

== ENCOUNTER → 2023-11-04 11:37 | Outpatient (BNVA) | payer MEDICARE, MEDICAID, SELFPAY | PROVIDERS: PCP Hospitalist; Visit Provider Urology ==

== ENCOUNTER 2023-12-04 16:55 | Inpatient (IN) | payer MEDICARE, MEDICAID, SELFPAY ==
--- NOTE | ~2023-12-04 | XR_ITS ---
EXAMINATION: XR CHEST CLINICAL INFORMATION: Pneumonia COMPARISON: Previous chest x-ray and CT recent 11/01/2023 TECHNIQUE: Frontal view of the chest was obtained. FINDINGS: The patient is rotated. The cardiac and mediastinal contours are stable. There is airspace disease left lung, greatest at the base suggestive of pneumonia. This does not appear appreciably changed from recent exam. Right lung is clear. No significant pleural effusion. No pneumothorax. Old right rib fractures and clavicle fracture. XR/XR chest 1V IMPRESSION: Left sided pneumonia similar to recent exams.
--- NOTE | ~2023-12-04 | CT_ITS ---
EXAMINATION: CT CHEST WITHOUT CONTRAST CLINICAL INFORMATION: Question aspiration pneumonia COMPARISON: Previous chest CT 11/01/2023 and chest x-ray from earlier the same day TECHNIQUE: Multidetector volumetric CT imaging of the chest was done. Axial MIP volume rendering provided. Sagittal and coronal reformatted images were obtained. This CT examination was performed using dose optimization techniques as appropriate, variously including the following: *Automated exposure control *Adjustment of mA and/or kV according to patient size (this includes techniques or standardized protocols for targeted exams where dose is matched to indication/reason for exam; i.e. extremities or head) *Use of iterative reconstruction technique DLP: 321 mGy-cm FINDINGS: LUNGS: Increased bronchial wall thickening and peribronchial attenuation throughout the right lung and in the left upper lobe. There is still left lower lobe consolidation with air bronchograms suggestive of pneumonia. This appears slightly October 2019. MEDIASTINUM: Normal heart size. No pericardial normal caliber thoracic aorta. Enlarged hilar or mediastinal lymph nodes. CORONARY ARTERY CALCIFICATION: Moderate coronary artery and aortic valve PLEURA: There is no pleural effusion. No pleural mass or thickening. AXILLA: No lymphadenopathy. UPPER ABDOMEN: Unremarkable. OSSEOUS STRUCTURES: Degenerative changes of the spine. CT/CT chest wo IV con IMPRESSION: Left lower lobe pneumonia. This is slightly improved October 2023 exam. Increasing tree-in-bud nodules throughout the right lung and in the left upper lobe. Appearance would be compatible with aspiration pneumonia. Fleischner guidelines were followed.
[2023-12-04 17:04] VITALS: BP 100/60; PULSE 75; O2SAT 96
[2023-12-04 17:05] VITALS: BP 102/53; PULSE 70; RESP 26; TEMP 37.5; O2SAT 90; BMI 20.7
--- NOTE | 2023-12-04 17:21 | ECG_ITS ---
Test Reason : SOB Blood Pressure : / mmHG Vent. Rate : 068 BPM Atrial Rate : 068 BPM P-R Int : 136 ms QRS Dur : 084 ms QT Int : 408 ms P-R-T Axes : 074 -32 -14 degrees QTc Int : 433 ms Normal sinus rhythm Left axis deviation Minimal voltage criteria for LVH, may be normal variant ( R in aVL ) Abnormal ECG When compared with ECG of 01-NOV-2023 14:44, Vent. rate has decreased BY 61 BPM Referred By: Josué Garza Electronically Signed By:Emir Bautista
--- NOTE | 2023-12-04 17:27 | ED_ITS ---
HPI - SOB/Dyspnea General Chief Complaint: Altered Mental Status Stated Complaint: Hypoxia,ams, was 78 RA now 96% on non rebreather Time Seen by Provider: 12/04/23 17:21 Source: patient and EMS Mode of arrival: EMS Limitations: no limitations History of Present Illness HPI Narrative: Patient 83 years old with history of atrial fibrillation COPD advanced dementia prostate cancer schizophrenia moderate protein calorie malnutrition and hypothyroidism contacted [facility] last discharge was on 11/06/2023 for aspiration pneumonia and sepsis comes here as staff at prison noticed patient was disoriented confused earlier today and had temperature. Desaturating at 78% at room air placed on non-rebreather saturating 96% now patient is on Ventimask on 6 L saturating 94% patient is full code patient recently started on oxycodone Related Data Home Medications Medication Instructions Recorded Confirmed acetaminophen 325 mg tablet 650 mg PO Q4H PRN PAIN/TEMP 12/30/21 12/04/23 atorvastatin 20 mg tablet 20 mg PO BEDTIME 12/30/21 12/04/23 bisacodyl 10 mg rectal suppository 10 mg MS MOWEFR 12/30/21 12/04/23 esomeprazole magnesium 40 mg 40 mg PO BID 12/30/21 12/04/23 capsule,delayed release (Nexium) gabapentin 100 mg capsule 100 mg PO BID 12/30/21 12/04/23 haloperidol decanoate 50 mg/mL 10 mg IM Q21D 12/30/21 12/04/23 intramuscular solution (Haldol Decanoate) lactulose 10 gram/15 mL oral 20 g PO BID 12/30/21 12/04/23 solution multivitamin 1 tab PO DAILY 12/30/21 12/04/23 propranolol 20 mg tablet 20 mg PO TID 12/30/21 12/04/23 sennosides 8.6 mg tablet (senna) 8.6 mg PO DAILY PRN Constipation 12/30/21 12/04/23 sennosides 8.6 mg-docusate sodium 2 tab PO BID 12/30/21 12/04/23 50 mg tablet (Senna Plus) tamsulosin 0.4 mg capsule 0.4 mg PO DAILY@2100 12/30/21 12/04/23 metoclopramide HCl 10 mg tablet 10 mg PO BIDAC 02/06/22 12/04/23 acidophilus 100 million 1 cap PO DAILY 11/15/22 12/04/23 cell-pectin, citrus 10 mg capsule aspirin 81 mg capsule 81 mg PO DAILY 12/21/22 12/04/23 bisacodyl 10 mg rectal suppository 10 mg MS DAILY PRN Constipation 12/21/22 12/04/23 bisacodyl 5 mg tablet 5 mg PO BEDTIME 12/21/22 12/04/23 sodium phosphates 19 gram-7 118 ml MS DAILY PRN Constipation 12/21/22 12/04/23 gram/118 mL enema (Fleet Enema) levothyroxine 112 mcg tablet 112 mcg PO DAILY 05/30/23 12/04/23 levetiracetam 500 mg tablet 500 mg PO BID 08/11/23 12/04/23 baclofen 10 mg tablet 10 mg PO TID 11/01/23 12/04/23 linezolid 600 mg tablet 600 mg PO BID 12/04/23 12/04/23 oxycodone 5 mg tablet 5 mg PO TID 12/04/23 12/04/23 Previous Rx's Medication Instructions Recorded finasteride 5 mg tablet 5 mg PO DAILY 90 days #90 tabs 07/30/22 polyethylene glycol 3350 17 gram 17 g PO DAILY #30 ea 11/18/22 oral powder packet Allergies Allergy/AdvReac Type Severity Reaction Status Date / Time No Known Allergies Allergy Verified 11/04/23 11:40 [No Known Allergies*] Review of Systems 2 Review of Systems: Yes Unobtainable due to mental status [facility] Past Medical History Medical History Pressure injury of hip, stage 2 Atrial fibrillation Urinary retention Dementia Urinary tract infection Moderate protein-calorie malnutrition Occipital infarction Atrial fibrillation BPH loc w urin obs/LUTS Dementia Schizophrenia COPD (chronic obstructive pulmonary disease) Prostate cancer Malignant neoplasm of prostate Family History Family History Other Family history unknown Social History Social History Household Members: Other Household Members Other:: SNF Housing: Other Housing Other:: [facility] Do you presently have visiting nurse or other home services: No Unable to assess alcohol history related to: Unable to respond and Unknown Alcohol intake: unknown Patient Tobacco Use Status: Tobacco use Unknown Second Hand Smoke Exposure: No Advance Directives: Yes Advance Directives on File: Yes Advance Directives Date on File: 05/18/22 service: No Current occupational status: disabled Physical Exam 2 Vital Signs: Vital Signs: Last Vital Signs Temp 99.3 F 12/04/23 21:32 Pulse 68 12/04/23 21:32 Resp 35 H 12/04/23 21:32 BP 102/47 L 12/04/23 21:32 Pulse Ox 97 12/04/23 21:32 O2 Del Method Oxymask 12/04/23 21:32 O2 Flow Rate 6 12/04/23 21:32 BMI result Body Mass Index 20.7 Appearance: Lethargic contracted emaciated patient Eyes: PERRLA, No Nystagmus ENT: Pharynx normal. Oral Mucosa moist Neck: Normal inspection. Neck supple. CVS: Normal heart rate and rhythm. Pulses normal. Respiratory: mod respiratory distress. Equal air entry bilateral, bilateral rales Abdomen: Soft and nontender. Bowel sounds are present, Skin: Skin warm and dry. Normal skin color. Normal skin turgor. Extremities: No lower extremity edema. No calf tenderness Neuro: Lethargic with contacted posture decubitus right greater trochanter Medications Administered Generic Name Dose Route Start Last Admin Trade Name Freq PRN Reason Stop Dose Admin Heparin Sodium (Porcine) 5,000 unit 12/04/23 20:45 12/04/23 21:06 Heparin Sodium,Porcine 5,000 Unit/Ml Vial SUBCUT 5,000 unit Q12H TERESE Administration Sodium Chloride 1,000 mls @ 100 mls/hr 12/04/23 20:45 12/04/23 23:14 Sodium Chloride 0.45 % IVCONT 100 mls/hr .Q10H TERESE Administration Piperacillin Sod/Tazobactam 100 mls @ 200 mls/hr 12/04/23 21:00 12/04/23 21:45 Sod 4.5 gm/ Sodium Chloride IV Infused Q8H TERESE Infusion Levetiracetam 500 mg in 100 mls @ 400 mls/hr 12/04/23 21:00 12/04/23 21:30 Keppra IV Infused Q12H TERESE Infusion Sodium Chloride 3 ml 12/05/23 00:00 12/05/23 01:10 0.9 % Sodium Chloride Flush 3 Ml Syringe IVFLUSH Not Given QSHIFT TERESE Discontinued Medications Generic Name Dose Route Start Last Admin Trade Name Maria D PRN Reason Stop Dose Admin Sodium Chloride 1,000 mls @ 999 mls/hr 12/04/23 19:59 12/04/23 23:15 Ns IV 12/04/23 20:59 Infused .Q1H1M ONE Infusion Vancomycin HCl 1,250 mg/ 250 mls @ 166.667 mls/hr 12/04/23 21:02 12/04/23 21:45 Sodium Chloride IV 12/04/23 22:31 166.67 mls/hr ONCE ONE Administration Naloxone HCl 0.4 mg 12/04/23 17:51 12/04/23 18:01 Naloxone Hcl 0.4 Mg/Ml Vial IVPUSH 12/04/23 17:52 0.4 mg ONCE ONE Administration Medical Decision Making Medical Decision Making [facility] Narrative: Patient from prison for recurrent nerve aspiration pneumonia will admit patient for IV antibiotic for increased lethargy not mental status CT scan showed aspiration pneumonia Differential Diagnosis Differential Diagnoses: The differential diagnosis associated with the presentation includes Aspiration pneumonia/bacteremia/metabolic encephalopathy/side effect of oxycodone Admission/Observation Consideration of admission/observation: Escalation of care including admission/observation considered Consult Healthcare Provider Management of the patient was discussed with: Hospitalist Lab Data [facility] Lab Attestation statement: I reviewed the patient's lab results. 12/04/23 17:39 12/04/23 17:39 Labs: Lab Results 12/04/23 12/04/23 Range/Units 17:39 17:46 WBC 9.7 (4.8-10.8) X10*3/uL RBC 3.95 L (4.60-5.80) X10*6/uL Hgb 9.3 L (14.0-18.0) g/dl Hct 33.0 L (42.0-52.0) % MCV 83.5 (80.0-98.0) fL MCH 23.5 L (27.0-33.0) pg MCHC 28.2 L (31.0-36.0) g/dl RDW 19.4 H (11.0-16.0) % Plt Count 392 (160-400) X10*3/uL MPV 9.5 (9.4-12.4) fL Immature Gran % (Auto) 0.8 H (0.0-0.4) % Neut % (Auto) 65.5 (45-73) % Lymph % (Auto) 18.4 L (20-40) % [place] % (Auto) 8.2 (2-11) % Eos % (Auto) 6.4 H (0-4) % Baso % (Auto) 0.7 (0-2) % Lymph # (Auto) 1.8 (1.2-4.9) X10*3/uL [place] # (Auto) 0.8 (0.1-1.2) X10*3/uL Eos # (Auto) 0.6 H (0.0-0.4) X10*3/uL Baso # (Auto) 0.1 (0.0-0.2) X10*3/uL Abs Immat Gran (auto) 0.08 H (0.00-0.03) X10*3/uL Absolute Neuts (auto) 6.4 (2.0-8.3) x10*3/uL Absolute Nucleated RBC 0.000 (0.0-0.012) X10*3/uL Nucleated RBC % (auto) 0.0 (0.0-0.2) /100WBC PT 13.3 (11.1-13.3) SEC INR 1.1 (0.9-1.1) APTT 31.3 (26.0-36.8) SEC VBG pH 7.40 (7.32-7.43) VBG pCO2 46 mmHg VBG pO2 85 mmHg VBG HCO3 29 H (22-26) mmol/L VBG O2 Saturation 97.0 % VBG Base Excess 4.1 mmol/L Sodium 158 H (135-145) mmol/L Potassium 4.7 D (3.3-5.1) mmol/L Chloride 119 H (96-108) mmol/L Carbon Dioxide 28 (22-29) mmol/L Anion Gap 16 (12-20) BUN 39 H (9-16) mg/dL Creatinine 1.26 (0.5-1.4) mg/dL Estim Creat Clear Calc 33.1 Estimated GFR 54 Random Glucose 185 H (60-115) mg/dL Lactic Acid 1.7 (0.5-2.0) mmol/L Calcium 9.3 D (8.4-10.2) mg/dL Total Bilirubin 0.1 (0.0-1.0) mg/dL AST 26 (5-37) U/L ALT 29 (0-40) U/L Alkaline Phosphatase 92 (39-117) U/L Troponin I High Sens 3.9 (<3.5-35.0) ng/L B-Natriuretic Peptide 107 H (<100) pg/mL Total Protein 7.8 (6.5-8.0) g/dL Albumin 3.1 L (3.5-5.0) g/dL Influenza Type A (PCR) NEGATIVE (Negative) Influenza Type B (PCR) NEGATIVE (Negative) RSV RNA Qual (PCR) NEGATIVE (Negative) SARS-CoV-2 RNA (RT-PCR) NEGATIVE (Negative) Independent Interpretation I performed an independent interpretation of an: EKG and CT Scan Interpretation: Normal sinus rhythm left axis deviation LVH no acute ST-T changes heart rate 68 beats per minute no acute ischemia Radiology Impression Discussion of test interpretation with radiology: I have reviewed the radiologist's reading. Radiologist Impression: CT/CT chest wo IV con IMPRESSION: Left lower lobe pneumonia. This is slightly improved October 2023 exam. Increasing tree-in-bud nodules throughout the right lung and in the left upper lobe. Appearance would be compatible with aspiration pneumonia. Fleischner guidelines were followed. Discharge Plan Discharge Clinical Impression: Acute metabolic encephalopathy, Recurrent aspiration pneumonia Patient Disposition: Admitted As Inpatient
[2023-12-04 17:45] LABS: MANUAL DIFF FLAG NO
[2023-12-04 17:53] LABS: VBG Base Excess 4.1 mmol/L; VBG HCO3 29 mmol/L (22-26); VBG pCO2 46 mmHg; VBG pO2 85 mmHg
[2023-12-04 17:54] LABS: INTERNATIONAL NORM RATIO 1.1 (0.9-1.1); Prothrombin Time 13.3 SEC (11.1-13.3)
[2023-12-04 17:57] LABS: Partial Thromboplastin Time 31.3 SEC (26.0-36.8)
[2023-12-04 17:59] LABS: Basophils Absolute Auto 0.1 X10*3/uL (0.0-0.2); Basophils Percent Auto 0.7 % (0-2); Eosinophils Absolute Auto 0.6 X10*3/uL (0.0-0.4); Eosinophils Percent Auto 6.4 % (0-4); Hemoglobin 9.3 g/dl (14.0-18.0); Imm Gran Abs Auto 0.08 X10*3/uL (0.00-0.03); Imm Gran Pct Auto 0.8 % (0.0-0.4); Lymphocytes Absolute Auto 1.8 X10*3/uL (1.2-4.9); Lymphocytes Percent Auto 18.4 % (20-40); Mean Corpuscular HGB Conc 28.2 g/dl (31.0-36.0); Mean Corpuscular Hemoglobin 23.5 pg (27.0-33.0); Mean Corpuscular Volume 83.5 fL (80.0-98.0); Mean Platelet Volume 9.5 fL (9.4-12.4); Monocytes Absolute Auto 0.8 X10*3/uL (0.1-1.2); Monocytes Percent Auto 8.2 % (2-11); Neutrophils Absolute Auto 6.4 x10*3/uL (2.0-8.3); Neutrophils Percent Auto 65.5 % (45-73); Platelet Count 392 X10*3/uL (160-400); Red Blood Count 3.95 X10*6/uL (4.60-5.80); Red Cell Distribution Width 19.4 % (11.0-16.0); White Blood Count 9.7 X10*3/uL (4.8-10.8)
[2023-12-04] MEDS: Naloxone HCl 0.4 MG/ML VIAL IVPUSH (18:01)
[2023-12-04 18:03] LABS: Venous Blood Gas Refer to POC result
[2023-12-04 18:11] LABS: Lactic Acid 1.7 mmol/L (0.5-2.0)
[2023-12-04 18:17] LABS: Alanine Aminotransferase 29 U/L (0-40); Albumin Level 3.1 g/dL (3.5-5.0); Alkaline Phosphatase 92 U/L (39-117); Anion Gap 16 (12-20); Aspartate Amino Transferase 26 U/L (5-37); Bilirubin Total 0.1 mg/dL (0.0-1.0); Blood Urea Nitrogen 39 mg/dL (9-16); Calcium 9.3 mg/dL (8.4-10.2); Carbon Dioxide 28 mmol/L (22-29); Chloride 119 mmol/L (96-108); Creatinine Clr Calc Pharmacy 33.1; Estimated Glomerular Filt Rate 54; Glucose Random 185 mg/dL (60-115); Potassium 4.7 mmol/L (3.3-5.1); Sodium 158 mmol/L (135-145); Total Protein 7.8 g/dL (6.5-8.0)
[2023-12-04 18:20] LABS: B Type Natriuretic Peptide 107 pg/mL (<100)
[2023-12-04 18:24] LABS: Troponin-I High Sensitivity 3.9 ng/L (<3.5-35.0)
[2023-12-04 18:38] LABS: Influenza A PCR NEGATIVE (Negative); Influenza B PCR NEGATIVE (Negative); Resp Syncy Virus RNA Qual PCR NEGATIVE (Negative); SARS COV2 PCR INHOUSE NEGATIVE (Negative)
[2023-12-04 18:44] VITALS: BP 90/57; PULSE 70; RESP 30; O2SAT 95
[2023-12-04] MEDS: 0.9 % Sodium Chloride 1,000 ML 999 ML IV (20:10)
--- NOTE | 2023-12-04 20:25 | P.HPHOSP_ITS ---
History of Present Illness Date of Service: 12/04/23 Attending physician on admission: Katelyn Guerrier Chief Complaint: lethargy, hypoxia 83-year-old gentleman resident of [facility] with past medical history of atrial fibrillation, COPD, advanced dementia, prostate cancer, schizophrenia, chronic dysphagia with h/o aspiration, epilepsy, moderate protein calorie malnutrition, and hypothyroidism presented to the ED earlier today for evaluation of fevers, lethargy, ams, and adventitious lung sounds reported by staff. He was also notably hypoxic to 78% placed on nonrebreather and weaned to 6L via oxymask in ed maintaining oximetry 95%. The patient is unable to provide history and is aggressive attempting to hit provider. On arrival, blood pressures soft but stable on admission at 97/56 and tachypneic to 30. Afebrile. No leukocytosis. Slight bump in creat to 1.26, baseline 0.73, BUN 39, sodium 158, chloride 117, glucose 185. Negative flu, covid-19, and influenza. CT chest shows LLL pneumonia, slightly improved from prior study in 10/2023 with increasing tree-in-bud opacities throughout R lung and in LILIAN compatible with aspiration pneumonia. In the ED, given naloxone and 1L IV NS Review of Systems 2 Review of Systems: Yes Unobtainable due to mental status PMFSH Medical History Pressure injury of hip, stage 2 Atrial fibrillation Urinary retention Dementia Urinary tract infection Moderate protein-calorie malnutrition Occipital infarction Atrial fibrillation BPH loc w urin obs/LUTS Dementia Schizophrenia COPD (chronic obstructive pulmonary disease) Prostate cancer Malignant neoplasm of prostate Family History Other Family history unknown Social History Household Members: Other Household Members Other:: SNF Housing: Other Housing Other:: [facility] Do you presently have visiting nurse or other home services: No Unable to assess alcohol history related to: Unable to respond and Unknown Alcohol intake: unknown Patient Tobacco Use Status: Tobacco use Unknown Second Hand Smoke Exposure: No Advance Directives: Yes Advance Directives on File: Yes Advance Directives Date on File: 05/18/22 service: No Current occupational status: disabled Meds Allergies Allergy/AdvReac Type Severity Reaction Status Date / Time No Known Allergies Allergy Verified 11/04/23 11:40 [No Known Allergies*] Active Medications: Current Medications Sodium Chloride (Ns) 1,000 mls @ 999 mls/hr IV .Q1H1M ONE Stop: 12/04/23 20:59 Last Admin: 12/04/23 20:10 Dose: 999 mls/hr Home Medications Medication Instructions Recorded Confirmed Last Taken Type acetaminophen 325 mg tablet 650 mg PO Q4H PRN PAIN/TEMP 12/30/21 11/01/23 Unknown History atorvastatin 20 mg tablet 20 mg PO BEDTIME 12/30/21 11/01/23 02/05/22 History bisacodyl 10 mg rectal suppository 10 mg MI MOWEFR 12/30/21 11/01/23 12/20/22 History esomeprazole magnesium 40 mg 40 mg PO BID@0630,1630 12/30/21 11/01/23 02/06/22 History capsule,delayed release (Nexium) gabapentin 100 mg capsule 100 mg PO BID 12/30/21 11/01/23 02/06/22 History haloperidol decanoate 50 mg/mL 10 mg IM Q21D 12/30/21 11/01/23 12/09/22 History intramuscular solution (Haldol Decanoate) lactulose 10 gram/15 mL oral 20 g PO BID 12/30/21 11/01/23 02/06/22 History solution multivitamin 1 tab PO DAILY 12/30/21 11/01/23 02/06/22 History propranolol 20 mg tablet 20 mg PO TID 12/30/21 11/01/23 02/06/22 History sennosides 8.6 mg tablet (senna) 8.6 mg PO DAILY PRN Constipation 12/30/21 11/01/23 Unknown History sennosides 8.6 mg-docusate sodium 2 tab PO BID 12/30/21 11/01/23 02/06/22 History 50 mg tablet (Senna Plus) tamsulosin 0.4 mg capsule 0.4 mg PO DAILY@2100 12/30/21 11/01/23 02/05/22 History tramadol 50 mg tablet 50 mg PO TID 12/30/21 11/01/23 Unknown History metoclopramide HCl 10 mg tablet 10 mg PO BIDAC 02/06/22 11/01/23 02/06/22 History acidophilus 100 million 1 cap PO DAILY 11/15/22 11/01/23 Unknown History cell-pectin, citrus 10 mg capsule aspirin 81 mg capsule 81 mg PO DAILY 12/21/22 11/01/23 Unknown History bisacodyl 10 mg rectal suppository 10 mg MI DAILY PRN Constipation 12/21/22 11/01/23 Unknown History bisacodyl 5 mg tablet 5 mg PO BEDTIME 12/21/22 11/01/23 Unknown History sodium phosphates 19 gram-7 118 ml MI DAILY PRN Constipation 12/21/22 11/01/23 Unknown History gram/118 mL enema (Fleet Enema) levothyroxine 112 mcg tablet 112 mcg PO DAILY 05/30/23 11/01/23 Unknown History levetiracetam 500 mg tablet 500 mg PO BID 08/11/23 11/01/23 Unknown History baclofen 10 mg tablet 10 mg PO TID 11/01/23 11/01/23 Unknown History Physical Exam 2 Vital Signs and Narrative: Vital Signs: Last Vital Signs Temp 99.5 F 12/04/23 17:05 Pulse 70 12/04/23 18:44 Resp 30 H 12/04/23 18:44 BP 90/57 L 12/04/23 18:44 Pulse Ox 95 12/04/23 18:44 O2 Del Method Non-Rebreather Ma sk 12/04/23 18:44 O2 Flow Rate 5 12/04/23 18:44 BMI result Body Mass Index 20.7 Constitutional - lethargic but arousable and aggressive, No apparent distress Eyes - PERRLA, EOMI Cardiovascular - S1S2, RRR, No edema Respiratory - Normal lung expansion, Normal respiratory effort, No respiratory distress on 6L supplemental o2, rhonchi bilaterally Gastrointestinal - NT / ND; +BS; No rebound or guarding Extremities - no calf tenderness bilaterally, no swelling Skin - Warm/Dry. Unstable ulcer buttock, stage 3 decubitus ulcers bilateral hips Neurological - lethargic & disoriented, slightly aggressive, uttering incomprehensibly Results Labs 12/04/23 17:39 12/04/23 17:39 Labs: Laboratory Results - last 24 hr 12/04/23 12/04/23 17:39 17:46 MCV 83.5 MCH 23.5 L MCHC 28.2 L RDW 19.4 H Plt Count 392 MPV 9.5 Immature Gran % (Auto) 0.8 H Neut % (Auto) 65.5 Lymph % (Auto) 18.4 L [place] % (Auto) 8.2 Eos % (Auto) 6.4 H Baso % (Auto) 0.7 Lymph # (Auto) 1.8 [place] # (Auto) 0.8 Eos # (Auto) 0.6 H Baso # (Auto) 0.1 Abs Immat Gran (auto) 0.08 H Absolute Neuts (auto) 6.4 Absolute Nucleated RBC 0.000 Nucleated RBC % (auto) 0.0 PT 13.3 INR 1.1 APTT 31.3 VBG pH 7.40 VBG pCO2 46 VBG pO2 85 VBG HCO3 29 H VBG O2 Saturation 97.0 VBG Base Excess 4.1 Anion Gap 16 Estim Creat Clear Calc 33.1 Estimated GFR 54 Random Glucose 185 H Lactic Acid 1.7 Calcium 9.3 D Total Bilirubin 0.1 AST 26 ALT 29 Alkaline Phosphatase 92 Troponin I High Sens 3.9 B-Natriuretic Peptide 107 H Total Protein 7.8 Albumin 3.1 L Influenza Type A (PCR) NEGATIVE Influenza Type B (PCR) NEGATIVE RSV RNA Qual (PCR) NEGATIVE SARS-CoV-2 RNA (RT-PCR) NEGATIVE Imaging Radiologist's Impressions: Impressions Chest X-Ray 12/04/23 18:03 IMPRESSION: Left sided pneumonia similar to recent exams. Chest CT 12/04/23 19:38 IMPRESSION: Left lower lobe pneumonia. This is slightly improved October 2023 exam. Increasing tree-in-bud nodules throughout the right lung and in the left upper lobe. Appearance would be compatible with aspiration pneumonia. Fleischner guidelines were followed. Assessment and Plan (1) Aspiration pneumonia: Status: Acute Plan 83-year-old gentleman resident of [facility] with past medical history of atrial fibrillation, COPD, advanced dementia, prostate cancer, schizophrenia, chronic dysphagia with h/o aspiration, epilepsy, moderate protein calorie malnutrition, and hypothyroidism admitted for further management of pneumonia with severe sepsis #Acute aspiration pneumonia -No sepsis -IV zosyn and vanco given recent hospitalization -aspiration precautions -keep npo for now, resume diet per billing supervisor evluation (see note 2/2- pureed with nectar thick) once more awake -tylenol MI prn for fevers -follow cbc, cultures #Acute kidney injury -creat 1.26, baseline 0.73 -Given 1L IVF in ed, continue gentle fluids -follow renal function -avoid nephrotoxins #Hypernatremia -Given 1L IV NS in ED, continue hypotonic NS -follow lytes #OM Left Greater trochanteric with 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 Hold for now, on vanco -wound rn consult -reposition q2h #Epilepsy -Change to IV keppra, transition to PO as appropriate # paroxysmal atrial fibrillation-rate controlled -not on anticoagulation or rate control medication -continue ASA # hypothyroidism -continue levothyroxine # schizophrenia -continue home medications # chronic constipation -continue bowel regimen # moderate protein calorie nutrition -advance diet per [employer] recommendations with nutrition supplements once more awake -nutrition to follow # COPD -no acute exacerbation DVT prophylaxis- lovenox Full code Guardian- Kamila Daley [phone] Pt requires inpt stay at least 2 midnights for management of acute aspiration pneumonia requiring IV abx and supplemental O2. Quality Stroke Does the patient have a stroke diagnosis?: No VTE Prior VTE?: No VTE Risk Level:: Medical - moderate - high VTE Device Contraindication: Treatment Not Tolerated VTE Drug Contraindication: N/A - Med Ordered
--- NOTE | 2023-12-04 20:30 | PC.NURSE ---
Pt. NA noted to be 158, 1L NS ordered bolus, patient to be admitted to hospital, currently intermittently restless on stretcher, contracted at baseline, minimally participatory in care.
[2023-12-04] MEDS: Heparin Sodium,Porcine 5,000 UNIT/ML VIAL 5000 UNIT SUBCUT (21:06)
[2023-12-04] MEDS: levETIRAcetam in NaCl (iso-os) 500 MG/100 ML PIGGYBACK 400 MG IV (21:12)
[2023-12-04] MEDS: Piperacillin Sodium/Tazobactam 4.5 GM in 0.9 % Sodium Chloride 100 ML IV (21:12)
[2023-12-04 21:32] VITALS: BP 102/47; PULSE 68; RESP 35; TEMP 37.4; O2SAT 97
[2023-12-04] MEDS: vancomycin HCL 1,250 MG in 0.9 % Sodium Chloride 250 ML 166.67 MG IV (21:45)
--- NOTE | 2023-12-04 22:14 | PHA.PROG ---
Admission Date/Time: December 04, 2023 20:42 Indication: respiratory infection Weight in k.6 kg Adjusted body weight in K.36 Serum Creatinine - Last 168 Hours 12/04/23 17:39 Creatinine 1.26 Estimated CrCl and GFR - Last 168 Hours 12/04/23 17:39 Estim Creat Clear Calc 33.1 Estimated GFR 54 Vancomycin Loading Dose: 1250 Current Vancomycin Dosing Regimen: 750 Q24H Vancomycin Monitoring using AUC goal of 400 - 600 range with trough as surrogate marker: 459 Date and Time for next Vancomycin Level to be drawn: 12/05 @1900 Pharmacist Comments on Vancomycin Plan: Patient is older with poor renal function and is smaller. Will get a level after load and 1 dose to ensure safety vs efficacy Vancomycin dosing will take advantage of [employer] as a clinical decision support tool that uses Bayesian modeling to calculate individual patient's pharmacokinetic parameters and forecast the patient's drug concentration time course with the target goal AUC 24 range of 400 - 600 mg/L/hr.
[2023-12-04] MEDS: Sodium Chloride 0.45 % 1,000 ML 100 ML IVCONT (23:14)
[2023-12-05] MEDS: Piperacillin Sodium/Tazobactam 4.5 GM in 0.9 % Sodium Chloride 100 ML IV ×3 (05:49→22:36)
[2023-12-05 05:54] VITALS: BP 118/53; PULSE 73; RESP 24; TEMP 37.2; O2SAT 100
[2023-12-05 06:51] LABS: Basophils Absolute Auto 0.1 X10*3/uL (0.0-0.2); Basophils Percent Auto 0.5 % (0-2); Imm Gran Abs Auto 0.05 X10*3/uL (0.00-0.03); Imm Gran Pct Auto 0.5 % (0.0-0.4); MANUAL DIFF FLAG SCAN; Monocytes Percent Auto 9.1 % (2-11); PLT CLUMP 1; SCAN SMEAR FLAG 1
[2023-12-05 06:53] LABS: Eosinophils Absolute Auto 0.7 X10*3/uL (0.0-0.4); Eosinophils Percent Auto 6.6 % (0-4); Hematocrit 33.2 % (42.0-52.0); Hemoglobin 9.3 g/dl (14.0-18.0); Lymphocytes Absolute Auto 2.1 X10*3/uL (1.2-4.9); Lymphocytes Percent Auto 19.8 % (20-40); Mean Corpuscular Hemoglobin 23.7 pg (27.0-33.0); Mean Corpuscular Volume 84.5 fL (80.0-98.0); Neutrophils Absolute Auto 6.7 x10*3/uL (2.0-8.3); Neutrophils Percent Auto 63.5 % (45-73); Red Blood Count 3.93 X10*6/uL (4.60-5.80); Red Cell Distribution Width 19.8 % (11.0-16.0)
[2023-12-05 07:01] LABS: Anion Gap 10 (12-20); Blood Urea Nitrogen 32 mg/dL (9-16); Calcium 8.9 mg/dL (8.4-10.2); Carbon Dioxide 27 mmol/L (22-29); Chloride 122 mmol/L (96-108); Creatinine Clr Calc Pharmacy 43.9; Estimated Glomerular Filt Rate > 60; Glucose Random 80 mg/dL (60-115); Potassium 4.6 mmol/L (3.3-5.1); Sodium 154 mmol/L (135-145)
[2023-12-05 07:19] LABS: White Blood Count 10.6 X10*3/uL (4.8-10.8)
[2023-12-05 07:20] LABS: Mean Platelet Volume 9.8 fL (9.4-12.4); Platelet Count 336 X10*3/uL (160-400); SLIDE REVIEW VERIFIED
--- NOTE | 2023-12-05 09:00 | PHA.MEDREC ---
Pharmacy Consult ? Medication Reconciliation Pharmacy has reviewed the medication reconciliation done by nursing staff.
--- NOTE | 2023-12-05 09:22 | PC.NURSE ---
Pt incontinent of stool. Daylin care performed, linens changed. 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 Pt attempting to remove dressings.
--- NOTE | 2023-12-05 09:37 | MHC.CM.PN ---
Attempted to meet with patient in regards to discharge planning. Patient has a guardian. Kamila Thuy is aware of admission. IMM sent via email. Kamila can be reached via telephone at [phone]. Kamila's office has been asked to provide a copy of guardianship. Anticipate patient will return to [facility] via S when medically stable. Continue to monitor for d/c needs.
[2023-12-05] MEDS: levETIRAcetam in NaCl (iso-os) 500 MG/100 ML PIGGYBACK 400 MG IV (10:10)
[2023-12-05] MEDS: Heparin Sodium,Porcine 5,000 UNIT/ML VIAL 5000 UNIT SUBCUT ×2 (10:10→22:38)
[2023-12-05] MEDS: 0.9 % Sodium Chloride Flush 3 ML SYRINGE IVFLUSH ×3 (10:11→22:40)
[2023-12-05 11:15] VITALS: BP 142/53; PULSE 77; RESP 18; TEMP 36.2; O2SAT 94
--- NOTE | 2023-12-05 13:23 | HO.PM.IMPN ---
Subjective Subjective Date of Service: 12/05/23 Interval History: Being followed for aspiration pneumonia, Resting comfortably intermittently yelling, no acute issues overnight Review of Systems Unable to obtain review of system due to mental condition Physical Exam Vital Signs: Vital Signs: Last Vital Signs Temp 97.2 F 12/05/23 11:15 Pulse 77 12/05/23 11:15 Resp 18 12/05/23 11:15 BP 142/53 H 12/05/23 11:15 Pulse Ox 94 12/05/23 11:15 O2 Del Method Simple Mask 12/05/23 11:35 O2 Flow Rate 6 12/05/23 05:54 Oxygen Flow Rate 6 12/05/23 11:35 BMI result Body Mass Index 20.7 Const: Other: General resting comfortably in no acute distress. Neck no JVD. CVS regular rate rhythm, Respiratory lungs clear to auscultation, no respiratory distress Gastrointestinal abdomen soft, non tender, bowel sounds audible Extremities no edema. Neuro contraction deformity right hand, both knees flexed, unable to perform neuro examination, patient yelling speech clear, uttering incomprehensibly likely baseline Skin stage III decubitus ulcer bilateral hips, left buttock unstageable pressure injury present on admission Objective Data Active Medications Acetaminophen (Acetaminophen 325 Mg Tablet) 650 mg PO Q6H PRN PRN Reason: Pain, Mild (Pain Scale 1-3) Heparin Sodium (Porcine) (Heparin Sodium,Porcine 5,000 Unit/Ml Vial) 5,000 unit SUBCUT Q12H [facility] Last Admin: 12/05/23 10:10 Dose: 5,000 unit Documented By: LAURENCE Sodium Chloride (Sodium Chloride 0.45 %) 1,000 mls @ 100 mls/hr IVCONT .Q10H [facility] Last Infusion: 12/05/23 10:18 Dose: Infused Documented By: LAURENCE Piperacillin Sod/Tazobactam (Sod 4.5 gm/ Sodium Chloride) 100 mls @ 200 mls/hr IV Q8H [facility] Last Infusion: 12/05/23 08:16 Dose: Infused Documented By: YARED Levetiracetam (Keppra) 500 mg in 100 mls @ 400 mls/hr IV Q12H [facility] Last Infusion: 12/05/23 12:37 Dose: Infused Documented By: HO.MAGT Vancomycin HCl 750 mg/ Sodium (Chloride) 265 mls @ 265 mls/hr IV Q24H [facility] Ondansetron HCl (Ondansetron Hcl 4 Mg/2 Ml Vial) 4 mg IVPUSH Q8H PRN PRN Reason: Nausea and Vomiting Pharmacy Consult (Consult Rx Vancomycin Dosing) 1 each MISCELLANE DAILY PRN PRN Reason: Consult order Senna (Sennosides 8.6 Mg Tablet) 17.2 mg PO BEDTIME PRN PRN Reason: Constipation Sodium Chloride (0.9 % Sodium Chloride Flush 3 Ml Syringe) 3 ml IVFLUSH QSHIFT [facility] Last Admin: 12/05/23 10:11 Dose: 3 ml Documented By: LAURENCE Labs 12/05/23 05:40 12/05/23 05:40 Labs: Laboratory Results - last 24 hr 12/04/23 12/04/23 12/05/23 17:39 17:46 05:40 MCV 83.5 84.5 MCH 23.5 L 23.7 L MCHC 28.2 L 28.0 L RDW 19.4 H 19.8 H Plt Count 392 336 MPV 9.5 9.8 Immature Gran % (Auto) 0.8 H 0.5 H Neut % (Auto) 65.5 63.5 Lymph % (Auto) 18.4 L 19.8 L [place] % (Auto) 8.2 9.1 Eos % (Auto) 6.4 H 6.6 H Baso % (Auto) 0.7 0.5 Lymph # (Auto) 1.8 2.1 [place] # (Auto) 0.8 1.0 Eos # (Auto) 0.6 H 0.7 H Baso # (Auto) 0.1 0.1 Abs Immat Gran (auto) 0.08 H 0.05 H Absolute Neuts (auto) 6.4 6.7 Absolute Nucleated RBC 0.000 0.000 Nucleated RBC % (auto) 0.0 0.0 Smear Tech's Comments VERIFIED PT 13.3 INR 1.1 APTT 31.3 VBG pH 7.40 VBG pCO2 46 VBG pO2 85 VBG HCO3 29 H VBG O2 Saturation 97.0 VBG Base Excess 4.1 Anion Gap 16 10 L Estim Creat Clear Calc 33.1 43.9 Estimated GFR 54 > 60 Random Glucose 185 H 80 Lactic Acid 1.7 Calcium 9.3 D 8.9 Total Bilirubin 0.1 AST 26 ALT 29 Alkaline Phosphatase 92 Troponin I High Sens 3.9 B-Natriuretic Peptide 107 H Total Protein 7.8 Albumin 3.1 L Influenza Type A (PCR) NEGATIVE Influenza Type B (PCR) NEGATIVE RSV RNA Qual (PCR) NEGATIVE SARS-CoV-2 RNA (RT-PCR) NEGATIVE Assessment and Plan (1) Recurrent aspiration pneumonia: Status: Acute Plan 83-year-old gentleman resident of [facility] with past medical history of atrial fibrillation, COPD, advanced dementia, prostate cancer, schizophrenia, chronic dysphagia with h/o aspiration, epilepsy, moderate protein calorie malnutrition, and hypothyroidism admitted for further management of pneumonia. 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 Hold for now, on vanco -wound consult -reposition q2h #Epilepsy -on IV keppra, will transition to PO # paroxysmal atrial fibrillation-rate controlled -not on anticoagulation , continue propranolol -continue ASA # hypothyroidism -continue levothyroxine # advance unspecified dementia/ schizophrenia -continue home medications # chronic constipation -continue bowel regimen # moderate protein calorie nutrition -advance diet per [employer] recommendations with nutrition supplements # COPD -no acute exacerbation DVT prophylaxis- lovenox Full code Guardian- Kamila Daley [phone] Pt requires continued inpt stay for management of acute aspiration pneumonia requiring IV abx and supplemental O2. Quality Stroke Does the patient have a stroke diagnosis?: No VTE Prior VTE?: No VTE Risk Level:: Medical - moderate - high VTE Device Contraindication: Treatment Not Tolerated VTE Drug Contraindication: N/A - Med Ordered
[2023-12-05] MEDS: Sodium Chloride 0.45 % 1,000 ML 100 ML IVCONT (13:26)
--- NOTE | 2023-12-05 14:14 | HO.WOUND ---
Wound Consult: Initial 83yr old? M admitted to [facility] on 12/04/23- See progress notes and H&P for detailed history.? Wound consult placed for Bilateral Hips, buttock and heels wounds present on admission.? Patient was expressing protective behaviors and was non verbal in communication. He often spoke in nonsensical words two nurses were needed to provide care to him. Patient is noted to be significantly contracted. Scortum and rectum are noted for MASD -IAD (Moisture Associated Skin Damage - Incontinence Associated Dermatitis) Left Hip / Trochanter Etiology: Stage 4 Pressure Injury -??Present on Admission - Previously documented as stage 3 pressure injury Measurements: see charting for detailed measurements Wound Bed: no walt bone exposed but does palpate down to bone with then tissue covering Drainage / Odor: miramontes yellow drainage - Mild odor noted Edges: ? unattached Osmany wound: ?Hypopigmented tissue surrounded by hyperpigmented tissue - No Induration, Fluctuance or Warmth noted Pain: pt did not respond to assessment Goals of Treatment: ? Moisture managment with Alginate Left Lateral Heel Etiology: Stage 2 Pressure Injury -??Present on Admission Measurements: see charting for detailed measurements Wound Bed: pink moist wound bed Drainage / Odor: small amount of yellow miramontes drainage no odor noted Edges: ? attached / calloused Osmany wound: ?Dry pink erythema - No Induration, Fluctuance or Warmth noted Pain: pt did not respond to assessment Goals of Treatment: ? Moisture managment with Alginate Left Buttock Etiology: Stage 4 Pressure Injury -??Present on Admission Perviously documented as Unstageable Measurements: see charting for detailed measurements Wound Bed: Thick adherent yellow brown fibrinous slough Drainage / Odor: Moderate amount of miramontes drainage - mild odor noted Edges: ? unattached Osmany wound: ?Deep Tissue Injury in Evolution noted - No Induration, Fluctuance or Warmth noted Pain: pt did not respond to assessment Goals of Treatment: ? Enzymatic debridement with Santyl Right Plantar Foot and right Great Toe Etiology: Deep Tissue Injury -??Present on Admission Measurements: see charting for detailed measurements Wound Bed:Maroon purple wound bed Drainage / Odor: None Edges: ? attached Osmany wound: ?Dry pink erythema - No Induration, Fluctuance or Warmth noted Pain: pt did not respond to assessment Goals of Treatment: ? Moisture managment with Alginate Right Hip / Iliac Crest Etiology: Stage 4 Pressure Injury -??Present on Admission Previsouly documented as stage 3 Pressure Injury Measurements: see charting for detailed measurements Wound Bed: Pale pink red moist wound bed with thin yellow slough with undermining present - no walt bone exposed but does palpate to bone level Drainage / Odor: miramontes yellow drainage on dressing Edges: ? unattached Osmany wound: ?Macerated tissue surrounded by hyperpigmented tissue - No Induration, Fluctuance or Warmth noted Pain: pt did not respond to assessment Goals of Treatment: ? Moisture management with Alginate Several areas of old pressure injury noted - see photos for locations. Recommendations: 1. Turn and Reposition every 2 hours and as needed for patient comfort.? Use pillows or wedges to support off loading positions. 2. Off Load all bony prominences with use of pillows and heel boots if needed.? Apply Preventative foams where needed. ?Sacral Foam and other preventative foams applied. 3. Monitor for incontinence and moisture control, use barrier creams when needed for prevention and treatment. Barrier cream applied. 4. Provide adequate and supplemental nutrition.? Nutrition consulted. 5. Order low air loss mattress. 6. Right Hip, Left hip and Left Heel - Off Load Pressure - Cleanse and irrigate with NS, Pat dry.? Apply barrier to periwound, lightly pack with Durafiber AG, be sure to leave a wick to easy removal.? Cover with Foam dressing.? Change Daily. 7. Left Buttock - Off Load Pressure - Cleanse with normal saline, pat dry. ?Apply barrier to the immediate osmany wound, apply thick layer of Santyl to entire wound bed, cover with gauze, secure foam dressing, change Daily. Re-consult wound care Nurse for wound deterioration or wound changes.
[2023-12-05 15:18] VITALS: BP 121/56; PULSE 87; RESP 20; TEMP 36.8
[2023-12-05] MEDS: Dextrose 5 % 1,000 ML 80 ML IVCONT (16:00)
[2023-12-05] MEDS: oxyCODONE HCl Immed Release 5 MG TABLET PO ×2 (16:00→22:39)
[2023-12-05] MEDS: Metoclopramide HCl 10 MG TABLET PO (16:00)
[2023-12-05] MEDS: Baclofen 10 MG TABLET PO ×2 (16:01→22:40)
[2023-12-05] MEDS: Propranolol HCL 20 MG TABLET PO ×2 (16:01→22:38)
[2023-12-05] MEDS: Omeprazole/Na Bicarb Oral Susp 20 MG/10 ML UD Cup 40 MG PO (17:21)
--- NOTE | 2023-12-05 17:25 | MHC.SL.SWA ---
Speech Pathologist Impression: Risk of aspiration, oropharyngeal dysphagia Risk of Aspiration Due to: History of Pneumonia Reduced Cognition Dysphasia Diet Status: Start on NDD1/HTL (via teaspoon only) Liquid Consistency and Strategies for Safe Swallow: Liquid Intake Recommendation: Honey Thick Liquid Intake Strategies: Small Sips No Straws Liquids by Teaspoon Only Solid Food Consistency: Dietary Recommendations: Pureed (NDD1) Additional Modifications to Solid Foods: Recommend START on PUREED (NDD1) diet and HONEY THICK liquids, pills to be CRUSHED in PUREE. Patient will require direct feeding and close monitoring. Discontinue feeding if patient is lethargic, not attending to meal, or evidences any overt signs of aspiration. Given patient's chronic difficulties and recurrent hospitalizations for aspiration, patient may benefit from instrumental examination (MBSS) to further assess the extent of his dysphagia and to provide feeding recommendations. Oral Medication Intake: Crushed with Puree Please contact the pharmacy regarding appropriate crushable or liquid drug formulations that are available whenever modified delivery is recommended. Compensatory Strategies and Precautions to be Taken for Safe Swallow: Sitting Upright (90 deg) No Straw Liquids from Spoon Small Bites and Sips Rate of Ingestion Change Oral Check Supervision While Eating and Drinking for Safe Swallow: Total Assistance (1:1) Foods to Avoid: Sticky, congealed purees. Add sauces/gravies and blend well. Swallowing Recommended Treatments: Compens. Strategy Educat. Recommendation for Speech: Inpatient Speech Therapy Speech Therapy through Rehab Facility Modified Barium Swallow Study - Inpatient Modified Barium Swallow Study - Outpatient Frequency/Duration: PRN M-F Date Range for Service Req: Timeline to reassess: Education Administrator Clinican/Clinical Fellow: No Supervisory Statement: I have reviewed and agree with the student/clinical fellow's documentation: N/A Speech Language Pathologist: Halle Mccarthy M.A., CCC-LEATHER SORTER
[2023-12-05 20:00] VITALS: BP 126/65; PULSE 78; RESP 20; TEMP 37.7
[2023-12-05] MEDS: Lactulose 20 GM/30 ML SOLUTION PO (22:34)
[2023-12-05] MEDS: Sennosides/Docusate Sodium TABLET 2 TAB PO (22:38)
[2023-12-05] MEDS: Tamsulosin HCL 0.4 MG CAPSULE PO (22:39)
[2023-12-05] MEDS: Atorvastatin Calcium 20 MG TABLET PO (22:39)
[2023-12-05] MEDS: Gabapentin 100 MG CAPSULE PO (22:39)
[2023-12-05] MEDS: bisacodyL 5 MG TABLET.DR PO (22:40)
[2023-12-05] MEDS: levETIRAcetam 500 MG TABLET PO (22:40)
[2023-12-05] MEDS: vancomycin HCL 750 MG in 0.9 % Sodium Chloride 250 ML 265 MG IV (23:10)
[2023-12-06] MEDS: Dextrose 5 % 1,000 ML 80 ML IVCONT ×2 (02:45→15:22)
[2023-12-06 04:00] VITALS: BP 125/93; PULSE 76; O2SAT 98
[2023-12-06] MEDS: Omeprazole/Na Bicarb Oral Susp 20 MG/10 ML UD Cup 40 MG PO ×2 (05:36→15:20)
[2023-12-06] MEDS: Levothyroxine Sodium 112 MCG TABLET PO (05:37)
[2023-12-06] MEDS: Piperacillin Sodium/Tazobactam 4.5 GM in 0.9 % Sodium Chloride 100 ML IV ×3 (05:37→21:47)
[2023-12-06 06:56] LABS: Anion Gap 11 (12-20); Blood Urea Nitrogen 22 mg/dL (9-16); Calcium 8.7 mg/dL (8.4-10.2); Carbon Dioxide 27 mmol/L (22-29); Chloride 117 mmol/L (96-108); Creatinine Clr Calc Pharmacy 48.4; Estimated Glomerular Filt Rate > 60; Glucose Random 99 mg/dL (60-115); Potassium 3.9 mmol/L (3.3-5.1); Sodium 151 mmol/L (135-145)
[2023-12-06 08:00] VITALS: BP 109/59; PULSE 66; RESP 18; TEMP 36.6; O2SAT 98
[2023-12-06] MEDS: Heparin Sodium,Porcine 5,000 UNIT/ML VIAL 5000 UNIT SUBCUT ×2 (08:36→20:10)
[2023-12-06] MEDS: oxyCODONE HCl Immed Release 5 MG TABLET PO ×3 (08:36→20:10)
[2023-12-06] MEDS: Metoclopramide HCl 10 MG TABLET PO ×2 (08:36→15:20)
[2023-12-06] MEDS: Aspirin Enteric Coated 81 MG TABLET.DR PO (08:37)
[2023-12-06] MEDS: Propranolol HCL 20 MG TABLET PO ×3 (08:37→20:10)
[2023-12-06] MEDS: Sennosides/Docusate Sodium TABLET 2 TAB PO ×2 (08:37→20:10)
[2023-12-06] MEDS: Gabapentin 100 MG CAPSULE PO ×2 (08:37→20:11)
[2023-12-06] MEDS: Finasteride 5 MG TABLET PO (08:37)
[2023-12-06] MEDS: Baclofen 10 MG TABLET PO ×3 (08:37→20:10)
[2023-12-06] MEDS: levETIRAcetam 500 MG TABLET PO ×2 (08:37→20:10)
[2023-12-06] MEDS: Lactulose 20 GM/30 ML SOLUTION PO ×2 (08:38→20:10)
[2023-12-06] MEDS: 0.9 % Sodium Chloride Flush 3 ML SYRINGE IVFLUSH (08:38)
[2023-12-06 10:16] VITALS: BMI 20.7
--- NOTE | 2023-12-06 10:21 | MHC.CLN ---
RE: CONSULT PT IS MODERATELY MALNOURISHED PT WITH MILDLY DEPLETED SUBCUTANEOUS FAT AND MUSCLE MASS WITH INCREASED NUTRITION RISK R/T PRESSURE INJURIES DIET RX: PUREED WITH HT LIQ-APPROPRIATE RECOMMEND ADDING GELATEIN PLUS TID TO PROMOTE WOUND HEALING SUPPLEMENT TO PROVIDE 480KCALS, 60G PROTEIN WITH 100% ACCEPTANCE MONITOR PO INTAKE CLOSELY AND ENCOURAGE SUPPLEMENTS SEE ALSO FULL CLINICAL NUTRITION ASSESSMENT
[2023-12-06] MEDS: Collagenase Clostridium Hist. 30 GM TUBE 1 APPL TOPICAL (11:24)
--- NOTE | 2023-12-06 13:34 | P.PNIM_ITS ---
Subjective Subjective Date of Service: 12/06/23 Interval History: No events overnight Unable to obtain history due to mental condition Review of Systems Unable to obtain due to mental condition Physical Exam 2 Vital Signs: Vital Signs: Last Vital Signs Temp 97.8 F 12/06/23 08:00 Pulse 66 12/06/23 08:00 Resp 18 12/06/23 08:00 BP 109/59 L 12/06/23 08:00 Pulse Ox 98 12/06/23 08:00 O2 Del Method Oxymask 12/06/23 08:00 O2 Flow Rate 4.0 12/06/23 08:00 Oxygen Flow Rate 6 12/05/23 11:35 BMI result Body Mass Index 20.7 Const: Other: General resting comfortably in no acute distress. Neck no JVD. CVS regular rate rhythm, Respiratory lungs clear to auscultation, no respiratory distress Gastrointestinal abdomen soft, non tender, bowel sounds audible Extremities no edema. Neuro contraction deformity right hand, both knees flexed, unable to perform neuro examination, patient yelling speech clear Skin stage III decubitus ulcer bilateral hips, left buttock unstageable pressure injury present on admission Objective Data Active Medications Acetaminophen (Acetaminophen 325 Mg Tablet) 650 mg PO Q6H PRN PRN Reason: Pain, Mild (Pain Scale 1-3) Aspirin (Aspirin Enteric Coated 81 Mg Tablet.) 81 mg PO DAILY [facility] Last Admin: 12/06/23 08:37 Dose: 81 mg Documented By: CARLOS Atorvastatin Calcium (Atorvastatin Calcium 20 Mg Tablet) 20 mg PO BEDTIME [facility] Last Admin: 12/05/23 22:39 Dose: 20 mg Documented By: DALE Baclofen (Baclofen 10 Mg Tablet) 10 mg PO TID [facility] Last Admin: 12/06/23 08:37 Dose: 10 mg Documented By: CARLOS Bisacodyl (Bisacodyl 5 Mg Tablet.) 5 mg PO BEDTIME [facility] Last Admin: 12/05/23 22:40 Dose: 5 mg Documented By: DALE Bisacodyl (Bisacodyl 10 Mg Supp.Rect) 10 mg CA DAILY PRN PRN Reason: Constipation Collagenase (Collagenase Clostridium Hist. 30 Gm Tube) 1 appl TOPICAL DAILY [facility]; Protocol Last Admin: 12/06/23 11:24 Dose: 1 appl Documented By: CARLOS Finasteride (Finasteride 5 Mg Tablet) 5 mg PO DAILY [facility] Last Admin: 12/06/23 08:37 Dose: 5 mg Documented By: CARLOS Gabapentin (Gabapentin 100 Mg Capsule) 100 mg PO BID [facility] Last Admin: 12/06/23 08:37 Dose: 100 mg Documented By: CARLOS Heparin Sodium (Porcine) (Heparin Sodium,Porcine 5,000 Unit/Ml Vial) 5,000 unit SUBCUT Q12H [facility] Last Admin: 12/06/23 08:36 Dose: 5,000 unit Documented By: CARLOS Piperacillin Sod/Tazobactam (Sod 4.5 gm/ Sodium Chloride) 100 mls @ 200 mls/hr IV Q8H [facility] Last Infusion: 12/06/23 06:07 Dose: Infused Documented By: DALE Vancomycin HCl 750 mg/ Sodium (Chloride) 265 mls @ 265 mls/hr IV Q24H [facility] Last Infusion: 12/06/23 00:10 Dose: Infused Documented By: DALE Dextrose (D5w) 1,000 mls @ 80 mls/hr IVCONT .[id number] [facility] Last Admin: 12/06/23 02:45 Dose: 80 mls/hr Documented By: DALE Lactulose (Lactulose 20 Gm/30 Ml Solution) 20 gm PO BID [facility] Last Admin: 12/06/23 08:38 Dose: 20 gm Documented By: CARLOS Levetiracetam (Levetiracetam 500 Mg Tablet) 500 mg PO BID [facility] Last Admin: 12/06/23 08:37 Dose: 500 mg Documented By: CARLOS Levothyroxine Sodium (Levothyroxine Sodium 112 Mcg Tablet) 112 mcg PO DAILY@0600 [facility] Last Admin: 12/06/23 05:37 Dose: 112 mcg Documented By: DALE Metoclopramide HCl (Metoclopramide Hcl 10 Mg Tablet) 10 mg PO BIDAC [facility] Last Admin: 12/06/23 08:36 Dose: 10 mg Documented By: CARLOS Omeprazole (Omeprazole/Na Bicarb Oral Susp 20 Mg/10 Ml Ud Cup) 40 mg PO BID@0630,1630 [facility] Last Admin: 03/05/24 05:36 Dose: 40 mg Documented By: DALE Ondansetron HCl (Ondansetron Hcl 4 Mg/2 Ml Vial) 4 mg IVPUSH Q8H PRN PRN Reason: Nausea and Vomiting Oxycodone HCl (Oxycodone Hcl Immed Release 5 Mg Tablet) 5 mg PO TID [facility] Last Admin: 12/06/23 08:36 Dose: 5 mg Documented By: CARLOS Pharmacy Consult (Consult Rx Vancomycin Dosing) 1 each MISCELLANE DAILY PRN PRN Reason: Consult order Polyethylene Glycol (Polyethylene Glycol 3350 17 Gm Powd.Pack) 17 gm PO DAILY [facility] Last Admin: 12/06/23 11:16 Dose: Not Given Documented By: CARLOS Non-Admin Reason: pt voiding Propranolol HCl (Propranolol Hcl 20 Mg Tablet) 20 mg PO TID [facility]; Protocol Last Admin: 12/06/23 08:37 Dose: 20 mg Documented By: CARLOS Senna (Sennosides 8.6 Mg Tablet) 17.2 mg PO BEDTIME PRN PRN Reason: Constipation Senna/Docusate Sodium (Sennosides/Docusate Sodium Tablet) 2 tab PO BID [facility] Last Admin: 12/06/23 08:37 Dose: 2 tab Documented By: CARLOS Sodium Chloride (0.9 % Sodium Chloride Flush 3 Ml Syringe) 3 ml IVFLUSH QSHIFT [facility] Last Admin: 12/06/23 08:38 Dose: 3 ml Documented By: CARLOS Tamsulosin HCl (Tamsulosin Hcl 0.4 Mg Capsule) 0.4 mg PO DAILY@2100 [facility] Last Admin: 12/05/23 22:39 Dose: 0.4 mg Documented By: DALE Labs 12/05/23 05:40 12/06/23 05:48 Labs: Laboratory Results - last 24 hr 12/06/23 05:48 Hold Purple Top SEE NOTE Anion Gap 11 L Estim Creat Clear Calc 48.4 Estimated GFR > 60 Random Glucose 99 Calcium 8.7 TSH 1.20 Microbiology Microbiology Results: Microbiology 12/04/23 17:39 Blood Culture - Final Blood - Venous Coag negative Staphylococcus 12/04/23 17:39 Blood Culture - Preliminary Blood - Venous No growth after 24 hours. Assessment and Plan (1) Recurrent aspiration pneumonia: Status: Acute Plan 83-year-old gentleman resident of [facility] with past medical history of atrial fibrillation, COPD, advanced dementia, prostate cancer, schizophrenia, chronic dysphagia with h/o aspiration, epilepsy, moderate protein calorie malnutrition, and hypothyroidism admitted for further management of pneumonia. #Acute aspiration pneumonia -No sepsis -IV zosyn and vanco given recent hospitalization -aspiration precautions -tolerating diet seen by speech therapy will resume pureed diet with honey thick liquids crushed pills, one-to-one feed and strict aspiration precautions -tylenol prn for fevers -normal WBC, blood cultures 1/2 positive for coagulase-negative Staphylococcus #Acute kidney injury -resolved, status was IV fluids, follow BMP #Hypernatremia -sodium trending down will continue IV D5W follow BMP #OM Left Greater trochanteric with chronic decubitus ulcers of b/l hips (stage 4), left buttock stage IV pressure injury and left lateral heel stage II pressure injury , right plantar foot and right great toe deep tissue injury, present on admission -Started on linezolid on 3/2 x 10 days per facility. Hold for now, on vanco -wound consult -reposition q2h #Epilepsy -continue keppra, # paroxysmal atrial fibrillation-rate controlled -not on anticoagulation , continue propranolol -continue ASA # hypothyroidism -continue levothyroxine # advance unspecified dementia/ schizophrenia -continue home medications # chronic constipation -continue bowel regimen # moderate protein calorie nutrition -advance diet per [employer] recommendations with nutrition supplements # COPD -no acute exacerbation DVT prophylaxis- lovenox Full code Disposition back to [facility] once medically stable. Guardian- Kamila Briandatrice [phone] Pt requires continued inpt stay for management of acute aspiration pneumonia requiring IV abx , IV fluids for hypernatremia and supplemental O2. Quality Stroke Does the patient have a stroke diagnosis?: No VTE Prior VTE?: No VTE Risk Level:: Medical - moderate - high VTE Device Contraindication: Treatment Not Tolerated VTE Drug Contraindication: N/A - Med Ordered
--- NOTE | 2023-12-06 15:32 | MHC.SPEECHCO ---
Pt not opening eyes on request, is batting away with his arms with touch or when offered PO. His legs are fully contracted to his chest and posture is sub-optimal, given current presentation - he is not deemed appropriate for MBSS at this time.
[2023-12-06 15:40] VITALS: BP 107/68; PULSE 81; RESP 18; TEMP 36.3; O2SAT 95
[2023-12-06 19:29] VITALS: BP 119/73; PULSE 78; RESP 16; TEMP 36.6; O2SAT 94
[2023-12-06] MEDS: bisacodyL 5 MG TABLET.DR PO (20:10)
[2023-12-06] MEDS: Tamsulosin HCL 0.4 MG CAPSULE PO (20:10)
[2023-12-06] MEDS: Atorvastatin Calcium 20 MG TABLET PO (20:11)
[2023-12-06 20:23] LABS: Vancomycin Random 5.3 mcg/mL (15-20)
[2023-12-06] MEDS: vancomycin HCL 750 MG in 0.9 % Sodium Chloride 250 ML 265 MG IV (22:24)
[2023-12-07 03:02] VITALS: BP 114/60; PULSE 78; RESP 20; TEMP 36.6; O2SAT 100
[2023-12-07] MEDS: Piperacillin Sodium/Tazobactam 4.5 GM in 0.9 % Sodium Chloride 100 ML IV ×2 (04:52→13:23)
[2023-12-07] MEDS: Levothyroxine Sodium 112 MCG TABLET PO (05:13)
[2023-12-07] MEDS: Omeprazole/Na Bicarb Oral Susp 20 MG/10 ML UD Cup 40 MG PO ×2 (05:13→16:01)
[2023-12-07] MEDS: Dextrose 5 % 1,000 ML 80 ML IVCONT (05:56)
[2023-12-07 06:39] LABS: Anion Gap 9 (12-20); Blood Urea Nitrogen 19 mg/dL (9-16); Calcium 8.3 mg/dL (8.4-10.2); Carbon Dioxide 29 mmol/L (22-29); Chloride 112 mmol/L (96-108); Creatinine Clr Calc Pharmacy 44.8; Estimated Glomerular Filt Rate > 60; Glucose Random 104 mg/dL (60-115); Sodium 146 mmol/L (135-145)
[2023-12-07 08:00] VITALS: BP 114/56; PULSE 72; RESP 18; TEMP 36.2; O2SAT 94
[2023-12-07] MEDS: vancomycin HCL 750 MG in 0.9 % Sodium Chloride 250 ML 265 MG IV (09:21)
[2023-12-07] MEDS: levETIRAcetam 500 MG TABLET PO (09:21)
[2023-12-07] MEDS: oxyCODONE HCl Immed Release 5 MG TABLET PO ×2 (09:21→16:01)
[2023-12-07] MEDS: Gabapentin 100 MG CAPSULE PO (09:21)
[2023-12-07] MEDS: Finasteride 5 MG TABLET PO (09:22)
[2023-12-07] MEDS: Baclofen 10 MG TABLET PO ×2 (09:22→16:02)
[2023-12-07] MEDS: Propranolol HCL 20 MG TABLET PO ×2 (09:22→16:01)
[2023-12-07] MEDS: Aspirin Enteric Coated 81 MG TABLET.DR PO (09:22)
[2023-12-07] MEDS: Metoclopramide HCl 10 MG TABLET PO ×2 (09:22→16:01)
[2023-12-07] MEDS: Sennosides/Docusate Sodium TABLET 2 TAB PO (09:22)
[2023-12-07] MEDS: Heparin Sodium,Porcine 5,000 UNIT/ML VIAL 5000 UNIT SUBCUT (09:29)
[2023-12-07] MEDS: Lactulose 20 GM/30 ML SOLUTION PO (09:29)
[2023-12-07] MEDS: Collagenase Clostridium Hist. 30 GM TUBE 1 APPL TOPICAL (09:30)
--- NOTE | 2023-12-07 10:41 | MHC.CLN ---
F/U DIET RX: PUREED WITH HT LIQ-APPROPRIATE GELATEIN PLUS TID ADDED TO PROMOTE WOUND HEALING. SUPPLEMENT TO PROVIDE 480KCALS, 60G PROTEIN WITH 100% ACCEPTANCE. STRICT ASPIRATION PRECAUTIONS DUE TO HX ASPIRATION PNEUMONIA. INTAKE PER DOC 50-100%. MONITOR PO INTAKE CLOSELY AND ENCOURAGE SUPPLEMENTS.
[2023-12-07 12:39] LABS: Anion Gap 10 (12-20); Carbon Dioxide 27 mmol/L (22-29); Chloride 110 mmol/L (96-108); Sodium 143 mmol/L (135-145)
--- NOTE | 2023-12-07 13:05 | PM.DS ---
DS: Providers Provider Date of Service: 12/07/23 Date of admission: 12/04/23 20:42 Primary care physician: Norris Muñoz DO Consults: 12/05/23 16:54 Consult to Wound Care Routine Reason for consultation: Bilateral Hips, Buttock, Heels POA DS: Diagnosis Discharge Diagnosis (1) Recurrent aspiration pneumonia: Status: Acute DS: Summary Hospital Course Hospital Course: History of presenting illness: Date of Service: 12/04/23 Attending physician on admission: Katelyn Guerrier Chief Complaint: lethargy, hypoxia 83-year-old gentleman resident of [facility] with past medical history of atrial fibrillation, COPD, advanced dementia, prostate cancer, schizophrenia, chronic dysphagia with h/o aspiration, epilepsy, moderate protein calorie malnutrition, and hypothyroidism presented to the ED earlier today for evaluation of fevers, lethargy, ams, and adventitious lung sounds reported by staff. He was also notably hypoxic to 78% placed on nonrebreather and weaned to 6L via oxymask in ed maintaining oximetry 95%. The patient is unable to provide history and is aggressive attempting to hit provider. On arrival, blood pressures soft but stable on admission at 97/56 and tachypneic to 30. Afebrile. No leukocytosis. Slight bump in creat to 1.26, baseline 0.73, BUN 39, sodium 158, chloride 117, glucose 185. Negative flu, covid-19, and influenza. CT chest shows LLL pneumonia, slightly improved from prior study in 10/2023 with increasing tree-in-bud opacities throughout R lung and in LILIAN compatible with aspiration pneumonia. In the ED, given naloxone and 1L IV NS. Hospital course: 83-year-old gentleman resident of [facility] with past medical history of atrial fibrillation, COPD, advanced dementia, prostate cancer, schizophrenia, chronic dysphagia with h/o aspiration, epilepsy, moderate protein calorie malnutrition, and hypothyroidism admitted for further management of aspiration pneumonia. #Acute aspiration pneumonia, no sepsis was noted patient was treated with IV Zosyn and vancomycin, and was evaluated by speech therapy they recommend to resume pureed and honey thick liquid, with pills crushed one-to-one feed patient was noted to have normal WBC, blood culture 1/2 grew coagulase-negative Staphylococcus unlikely pathogen, since patient remains afebrile, tolerating diet he is being transferred back to rehab facility Patient on admission was also noted to have mild acute kidney injury and hypernatremia likely due to decreased by mouth intake patient was treated with IV fluids renal function and sodium normalized recommend to push fluids which is difficult with honey thick, recommend IV fluids 1 L daily if unable to stay hydrated with by mouth intake, in regard to antibiotic will be continued on linezolid. # acute on ch hypoxic respiratory failure likely due to aspiration resolved continue 3 L of home oxygen # acute toxic metabolic encephalopathy present on admission likely due to infection and electrolyte abnormality resolved. 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 Continue wound care as before #Epilepsy -continue keppra, # paroxysmal atrial fibrillation-rate controlled not on anticoagulation , continue propranolol and ASA # hypothyroidism -continue levothyroxine # advance unspecified dementia/ schizophrenia -continue home medications. # chronic constipation -continue bowel regimen. # moderate protein calorie nutrition - nutrition supplements. # COPD -no acute exacerbation Time Attestation Discharge Coordination Time: discharge time of __34__ minutes Quality: Safe Use of Opioids Does Pt have an Active Cancer Diagnosis on the Problem List?: No Quality: Stroke Does the patient have a stroke diagnosis?: No Physical Exam Vital Signs: Vital Signs: Last Vital Signs Temp 97.2 F 12/07/23 08:00 Pulse 72 12/07/23 08:00 Resp 18 12/07/23 08:00 BP 114/56 L 12/07/23 08:00 Pulse Ox 94 12/07/23 08:00 O2 Del Method Oxymask 12/07/23 08:00 O2 Flow Rate 4.0 12/07/23 08:00 Oxygen Flow Rate 6 12/05/23 11:35 BMI result Body Mass Index 20.7 Const: Other: General resting comfortably in no acute distress. Neck no JVD. CVS regular rate rhythm, Respiratory lungs clear to auscultation, no respiratory distress Gastrointestinal abdomen soft, non tender, bowel sounds audible Extremities no edema. Neuro contraction deformity right hand, both knees flexed, unable to perform neuro examination, patient yelling speech clear Skin stage 4 decubitus ulcer bilateral hips, left buttock stage 4 pressure injury present on admission. DS: Data Data Completed and Pending Completed studies during hospitalization [Text1]: Procedures Insertion of Infusion Device into Superior Vena Cava, Percutaneous Approach (11/01/23) Introduction of Vasopressor into Peripheral Vein, Percutaneous Approach (05/15/22) Ultrasonography of Superior Vena Cava, Guidance (11/01/23) Labs on day of discharge: Laboratory Results - last 24 hr 12/06/23 12/07/23 12/07/23 19:55 05:46 12:06 Sodium 146 H 143 Potassium 4.0 4.0 Chloride 112 H 110 H Carbon Dioxide 29 27 Anion Gap 9 L 10 L BUN 19 H Creatinine 0.93 Estim Creat Clear Calc 44.8 Estimated GFR > 60 Random Glucose 104 Calcium 8.3 L Random Vancomycin 5.3 L Preliminary micro results at discharge 12/04/23 17:39 Blood Culture - Preliminary Blood - Venous No growth after 48 hours. Discharge Plan Discharge Anticipated Discharge Date/Time: 12/07/23 13:00 Patient Disposition: [facility] Discharge Diagnosis: Aspiration pneumonia Hypernatremia Referrals: Norris Muñoz DO [Primary Care Provider] - 1 Week Discharge Medications: Continued acetaminophen 325 mg Tablet 650 mg PO Q4H PRN (Reason: PAIN/TEMP) atorvastatin 20 mg Tablet 20 mg PO BEDTIME bisacodyl 10 mg Suppository 10 mg HI MOWEFR Rx Instructions: mon,wed,fri gabapentin 100 mg Capsule 100 mg PO BID haloperidol decanoate [Haldol Decanoate] 50 mg/mL Solution 10 mg IM Q21D lactulose 10 gram/15 mL Solution 20 g PO BID esomeprazole magnesium [Nexium] 40 mg Capsule,Delayed Release(Dr/Ec) 40 mg PO BID multivitamin Tablet 1 tab PO DAILY propranolol 20 mg Tablet 20 mg PO TID sennosides [senna] 8.6 mg Tablet 8.6 mg PO DAILY PRN (Reason: Constipation) sennosides-docusate sodium [Senna Plus] 8.6-50 mg Tablet 2 tab PO BID tamsulosin 0.4 mg Capsule 0.4 mg PO DAILY@2100 metoclopramide HCl 10 mg Tablet 10 mg PO BIDAC acidophilus-pectin, citrus 100 million cell-10 mg Capsule 1 cap PO DAILY Rx Instructions: take with a meal polyethylene glycol 3350 17 gram Powder In Packet 17 g PO DAILY Qty: 30 0RF aspirin 81 mg Capsule 81 mg PO DAILY Hold Instructions: at Venkatesh to decide when to restart if needed bisacodyl 10 mg Suppository 10 mg HI DAILY PRN (Reason: Constipation) Rx Instructions: if senna is ineffetive bisacodyl 5 mg Tablet 5 mg PO BEDTIME Fleet Enema 19-7 gram/118 mL Enema 118 ml HI DAILY PRN (Reason: Constipation) Rx Instructions: if bisacodyl suppository is ineffective levetiracetam 500 mg Tablet 500 mg PO BID baclofen 10 mg Tablet 10 mg PO TID levothyroxine 112 mcg tablet 112 mcg PO DAILY linezolid 600 mg Tablet 600 mg PO BID Rx Instructions: Give 1 tablet PO two times a day for osteomyelitis until Until 12/13/23 23:59 oxycodone 5 mg Tablet 5 mg PO TID finasteride 5 mg tablet 5 mg PO DAILY 90 Days Qty: 90 3RF Discharge Orders: Discharge Order (Routine); Ordered 12/07/23 Ordered By: Portia Valdez Diet: Advance to usual diet Activity on Discharge: As tolerated Stand Alone Forms: Patient Portal Discharge page Care Plan Goals: Recurrent aspiration pneumonia Acute kidney injury/hypernatremia resolved with fluids recommend to push by mouth fluids Epilepsy no seizure-like activity noted continue home medications Health Concerns: Osteomyelitis left hip finished course of antibiotic as before Dysphagia evaluated by speech therapist maintained on pureed/honey thick liquids, pills crushed in pureed need direct feeding and close monitoring Plan of Treatment: Outpatient follow-up with primary care physician and Infectious Disease Dr. Layla Noe to follow-up on osteomyelitis Assessment: As above
--- NOTE | 2023-12-07 13:53 | MHC.CM.PN ---
DP: PT HAS BEEN MEDICALLY CLEARED FOR DC BACK TO [facility] FOR RESUMPTION OF LTC. RN AWARE. [facility] DNS UPDATED. BLS TRANSPORT BOOKED FOR 5 PM VIA [facility]
[2023-12-07 15:44] VITALS: BP 106/53; PULSE 65; RESP 16; TEMP 36.4; O2SAT 97
== END 2023-12-07 18:08 | disposition intermediate care facility (04) | DRG 177 ==
LOC: HO.ED 17:50 → HO.EDOVER 21:30 → HO.S3 12-05 08:22
PROVIDERS: Physician Assistant; Admitting Provider Physician Assistant; Emergency Provider Internal Medicine; PCP Hospitalist; Visit Provider Hospitalist
DX: J69.0 Pneumonitis due to inhalation of food and vomit (principal); G93.41 Metabolic encephalopathy; L89.223 Pressure ulcer of left hip, stage 3; L89.213 Pressure ulcer of right hip, stage 3; E44.0 Moderate protein-calorie malnutrition; N17.9 Acute kidney failure, unspecified; E87.0 Hyperosmolality and hypernatremia; M86.652 Other chronic osteomyelitis, left thigh; L89.320 Pressure ulcer of left buttock, unstageable; R13.10 Dysphagia, unspecified; F03.90 Unspecified dementia, unspecified severity, without behavioral disturbance, psychotic disturbance, mood disturbance, and anxiety; L89.622 Pressure ulcer of left heel, stage 2; K59.09 Other constipation; F20.9 Schizophrenia, unspecified; E03.9 Hypothyroidism, unspecified; J44.9 Chronic obstructive pulmonary disease, unspecified; Z68.20 Body mass index [BMI] 20.0-20.9, adult; G40.909 Epilepsy, unspecified, not intractable, without status epilepticus; I48.0 Paroxysmal atrial fibrillation; Z20.822 Contact with and (suspected) exposure to COVID-19; Z74.01 Bed confinement status; Z79.82 Long term (current) use of aspirin; Z79.890 Hormone replacement therapy; Z79.899 Other long term (current) drug therapy
CPT/HCPCS: 0241U; 36415; 71045; 71250; 80048; 80051; 80053; 80202; 82803; 83605; 83880; 84443; 84484; 85025; 85610; 85730; 87040; 87205; 92526; 92610; 93005; 99285; J1644; J1953; J2310; J2543; J3370; J3371

== ENCOUNTER → 2023-12-04 17:21 | Outpatient (BNV) | payer MEDICARE, MEDICAID, SELFPAY | PROVIDERS: Admitting Provider Physician Assistant; Emergency Provider Internal Medicine; PCP Hospitalist; Visit Provider Internal Medicine Cardiovascular Disease | DX: R06.02 Shortness of breath (principal); I44.4 Left anterior fascicular block | CPT/HCPCS: 93010 ==

== ENCOUNTER → 2023-12-04 17:50 | Outpatient (BNV) | payer MEDICARE, MEDICAID, SELFPAY | PROVIDERS: Emergency Provider Internal Medicine; PCP Hospitalist; Visit Provider Physician Assistant | DX: J69.0 Pneumonitis due to inhalation of food and vomit (principal); J96.21 Acute and chronic respiratory failure with hypoxia; N17.9 Acute kidney failure, unspecified; E87.0 Hyperosmolality and hypernatremia; G93.41 Metabolic encephalopathy | CPT/HCPCS: 99223; 99233; 99239 ==